=== PATIENT | female | born 1970 | race Caucasian/White ===

== ENCOUNTER 2016-05-16 22:07 | Observation (INO) ==
[2016-05-16] MEDS ORDERED: Nitroglycerin 0.4 MG TAB.SUBL SL PRN (23:12)
[2016-05-16] MEDS ORDERED: Aspirin 81 MG TAB.CHEW PO ONE (23:12)
[2016-05-16] MEDS ORDERED: methylPREDNISolone 125 MG/2 ML VIAL IVP ONE (23:12)
[2016-05-16] MEDS ORDERED: Ipratropium/Albuterol Neb 3 ML IH ONE (23:12)
[2016-05-16 23:19] LABS: Basophils # 0.1 K/mcL (0.0-0.2); Basophils % 0.8 %; Eosinophils # 0.2 K/mcL (0.0-0.6); Eosinophils % 1.7 %; Hematocrit 34.5 % (35.3-44.9); Immature Granulocytes % 0.4 % (0-4); Lymphocytes # 2.1 K/mcL (0.6-4.6); Lymphocytes % 22.8 %; Mean Corpuscular HGB Conc 31.9 g/dL (31.6-35.5); Mean Corpuscular Hemoglobin 27.8 pg (28.0-33.3); Mean Corpuscular Volume 87.3 fL (83.0-100.0); Mean Platelet Volume 9.4 fL (9.4-12.4); Monocytes # 0.5 K/mcL (0.0-1.3); Neutrophils # 6.2 K/mcL (1.6-8.9); Platelet Count 390 K/mcL (140-400); Red Blood Count 3.95 M/mcL (3.82-4.97); Red Cell Distribution Width 13.3 % (11.5-14.5); Segmented Neutrophils % 68.3 %
[2016-05-16 23:25] LABS: INR 1.1; Prothrombin Time 11.7 Seconds (9.4-12.1)
[2016-05-16 23:27] LABS: Activated Partial Thrombo Time 31.1 Seconds (26.0-36.0)
[2016-05-16 23:33] LABS: Alanine Aminotransferase 11 Units/L (0-55); Albumin 2.2 g/dL (3.5-5.0); Albumin/Globulin Ratio 0.7 (1.1-2.2); Alkaline Phosphatase 124 Units/L (38-126); Aspartate Amino Transferase 12 Units/L (5-34); BUN/Creatinine Ratio 24 (6-26); Bilirubin,Total 0.6 mg/dL (0.2-1.2); Blood Urea Nitrogen 23 mg/dL (7-20); Calcium 8.1 mg/dL (8.6-10.8); Carbon Dioxide 28 mEq/L (19-29); Chloride 101 mEq/L (98-109); Glucose 398 mg/dL (70-99); Osmolality,Calculated 300 (280-300); Potassium 3.8 mEq/L (3.5-4.5); Sodium 135 mEq/L (136-145); Total Protein 5.2 g/dL (6.0-8.3); eGFR For African Americans > 60 (> 60); eGFR For Non-African Americans > 60 (> 60)
[2016-05-16] MEDS ORDERED: Furosemide 80 MG in 0.9 % Sodium Chloride 50 ML IVPB ONE (23:57)
--- NOTE | 2016-05-17 00:13 | Emergency Department Note ---
Disposition Clinical Impression: Shortness of breath, Hypoxia Chest pain Qualifiers: Chest pain type: unspecified Qualified Code(s): R07.9 - Chest pain, unspecified Congestive heart failure Qualifiers: Congestive heart failure type: unspecified congestive heart failure type Congestive heart failure chronicity: unspecified congestive heart failure chronicity Qualified Code(s): I50.9 - Heart failure, unspecified Disposition: Admitted As Inpatient Condition: Good Time of Disposition: 00:33 Chest Pain HPI - General Chief Complaint: ED Chest Pain Stated Complaint: Chest pain/Right hip and other pains Time Seen by Provider: 05/16/16 23:01 Source: patient Limitations: no limitations Vital Signs Reviewed: Yes Nursing Notes Reviewed: Yes - History of Present Illness HPI Narrative: Patient presents emergency room with complaints of right hip pain. She felt something pop in her hip yesterday. While coming into the emergency room today she had chest pain as well. A similar to her previous myocardial infarction. She was concerned and wanted evaluated. She currently denies fevers chills nausea vomiting or diarrhea. Denies shortness of breath no other new issues or medications. She has noticed some increased swelling in her bilateral lower legs Pt complaint: chest pain Onset (ago): Just [employer] Duration: constant Onset: during rest Pain Location: substernal, left chest Severity: severe Severity scale (1-10): 10 Quality: tightness Pain Radiation: none Improves with: nothing Worsens with: exertion, inspiration, movement Context: recent illness, trauma/injury (Right hip) Treatments prior to arrival chest pain: none - Related Data Home Medications Medication Instructions Recorded Confirmed Albuterol Sulfate [Albuterol 2 puff IH Q4HR PRN 12/20/14 05/17/16 Inhaler] Amitriptyline [Elavil] 25 mg PO HS 12/20/14 05/17/16 Aspirin Enteric Coated [Aspirin EC] 81 mg PO DAILY 12/20/14 05/17/16 Atorvastatin [Lipitor] 40 mg PO DAILY 12/20/14 05/17/16 Clopidogrel [Plavix] 75 mg PO DAILY 12/20/14 05/17/16 Fenofibrate [Lofibra] 160 mg PO DAILY 12/20/14 09/08/15 Fludrocortisone Acetate [Florinef] 0.1 mg PO DAILY 12/20/14 09/08/15 Fluticasone/Salmeterol [Advair 1 puff IH BID 12/20/14 05/17/16 250-50 Diskus] Gabapentin [Neurontin] 400 mg PO TID 12/20/14 05/17/16 Insulin ASPART [NovoLOG] 4 - 5 unit SQ TIDWM 12/20/14 09/08/15 Insulin DETEMIR [Levemir] 40 unit SQ BID 12/20/14 09/08/15 Ipratropium/Albuterol Neb [Duoneb] 3 ml IH Q6HR 12/20/14 09/08/15 Isosorbide MONOnitrate (24 HR) 60 mg PO DAILY 12/20/14 05/17/16 [Imdur] Lisinopril [Zestril] 2.5 mg PO DAILY 12/20/14 05/17/16 Metoprolol XL (24 HR) Succ [Toprol 50 mg PO DAILY 12/20/14 05/17/16 XL] Oxycodone HCl/Acetaminophen 1 each PO BID 12/20/14 05/17/16 [Percocet 7.5-325 mg Tablet] Ranolazine [Ranexa] 500 mg PO BID 12/20/14 05/17/16 Alprazolam [Xanax 0.5 MG Tablet] 0.5 mg PO HS PRN 05/17/16 05/17/16 Allergies Allergy/AdvReac Type Severity Reaction Status Date / Time ciprofloxacin [From Cipro] Allergy Hives Verified 05/16/16 22:20 insulin glargine Allergy Blister Verified 05/16/16 22:20 [From Lantus] codeine AdvReac Hives Verified 05/16/16 22:20 All systems ED: reviewed and negative except as stated. Constitutional: Denies: fever, chills Cardiovascular: Reports: chest pain. Denies: palpitations, dyspnea on exertion Respiratory: Denies: dyspnea, wheezes, hemoptysis Gastrointestinal: Denies: nausea, vomiting, diarrhea Genitourinary: Denies: dysuria, frequency Musculoskeletal: Reports: arthralgia. 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 Absent: respiratory distress, wheezes, stridor, accessory muscle use - Cardiovascular Cardiovascular exam: Present: regular rate, normal rhythm, normal heart sounds - Abdominal Exam Abdominal exam: Present: soft, Non-Tender. Absent: tenderness, distention, guarding, rebound, rigidity - Extremities Exam Extremities exam: Present: normal inspection, full ROM, pedal edema (Bilateral pitting edema up to the mid thigh +2) - Back Exam Back exam: Present: normal inspection, full ROM. Absent: tenderness - Neurological Exam Neurological exam: Present: alert, oriented X3, CN II-XII intact, normal gait - Psychiatric Psychiatric exam: Present: normal affect, normal mood - Skin Skin exam: Present: warm, dry, intact, normal color Course Course Narrative: Patient seen and examined at the time of arrival. See history of present illness. Patient is presenting here today with right hip pain. She had a previous surgical intervention performed in the hip after traumatic injury. Patient has had acute pain since yesterday afternoon. She denies any trauma falls or other injuries at this point. She also is complaining of acute onset of chest pain approximately 4 hours prior to coming into the emergency room today. Physical exam shows a well-appearing female. She appears much older than her stated age. Patient has clear lungs heart that is regular. Her abdomen is soft. She has tenderness over the right greater trochanter and in the right hip. She has full motor function in the bilateral lower extremity. She has appropriate sensation in the L3 throughout 5 dermatomes of the lower extremity. She has palpable DP and PT pulses. She has significant +2 pitting edema up to the mid thigh. Vital signs reviewed she is afebrile. Patient is concerning for possible cardiac issue at this point. She is showing signs of acute CHF. Patient also evaluation of the hip and the pelvis. Urinalysis pending. Disposition pending workup and treatment course. Nitroglycerin given a one-time dose can go the patient says that she is very symptomatic to nitroglycerin. Patient also will be provided with aspirin EKG chest x-ray troponin BNP. We will continue to monitor his symptoms are controlled and treatment course is completed. - Reevaluation(s) Reevaluation #1: Patient's vital signs unstable. Symptoms are moderately controlled at this point. Chest pain is better after the nitroglycerin. Patient has what appears to be acute CHF exacerbation based on chest x-ray and elevated BNP. Right hip also has some concerning findings on imaging. At this point based on symptoms history and presentation patient be brought to hospital with what appears to be in acute CHF exacerbation along with what is found to be a right hip pain will reevaluate the patient initially is no other issues at this time and expect admit the patient to the hospital for acute CHF exacerbation hip evaluation Time: 00:29 Reevaluation #2: Patient discussed with the hospitalist Dr. marks. Reviewed patient's presentation symptoms medical history and hip complaint. He had no other recommendations at this time. IV Lasix provided for what appears to be CHF exacerbation. Patient has maintained her vital signs here. She has required 2 L of nasal cannula oxygen. All of her chest discomfort symptoms resolved with the breathing treatments. We will continue monitoring in emergency room until the admission process is completed. Time: 00:47 Vital Signs Temperature 97.7 F 05/16/16 22:20 Pulse Rate 92 05/16/16 22:20 Respiratory Rate 20 05/16/16 22:20 Blood Pressure 154/78 05/16/16 22:20 O2 Sat by Pulse Oximetry 94 L 05/16/16 22:20 Temperature 98.6 F 05/17/16 03:17 Pulse Rate 98 05/17/16 03:17 Respiratory Rate 18 05/17/16 03:17 Blood Pressure 147/75 05/17/16 03:17 O2 Sat by Pulse Oximetry 97 05/17/16 05:08 Oxygen Delivery Oxygen Delivery Room Air Chest Pain - MDM Narrative Medical decision making narrative: CHF, chest pressure. Hypoxia, shortness of breath, bilateral lower extremity edema, right hip pain - Medical Records Medical records reviewed: Yes I reviewed the patient's medical records. - Lab Data Lab results reviewed: Yes I reviewed the patient's lab results. Result diagrams: 05/16/16 23:10 05/16/16 23:10 Lab Results 05/16/16 05/16/16 05/16/16 Range/Units 23:10 23:10 23:10 WBC 9.0 (4.3-11.1) K/mcL RBC 3.95 (3.82-4.97) M/mcL Hgb 11.0 L (11.5-15.4) g/dL Hct 34.5 L (35.3-44.9) % MCV 87.3 (83.0-100.0) fL MCH 27.8 L (28.0-33.3) pg MCHC 31.9 (31.6-35.5) g/dL RDW 13.3 (11.5-14.5) % Plt Count 390 (140-400) K/mcL MPV 9.4 (9.4-12.4) fL Immature Gran % 0.4 (0-4) % Seg Neutrophils % 68.3 % Lymphocytes % 22.8 % Monocytes % 6.0 % Eosinophils % 1.7 % Basophils % 0.8 % Neutrophils # 6.2 (1.6-8.9) K/mcL Lymphocytes # 2.1 (0.6-4.6) K/mcL Monocytes # 0.5 (0.0-1.3) K/mcL Eosinophils # 0.2 (0.0-0.6) K/mcL Basophils # 0.1 (0.0-0.2) K/mcL PT (9.4-12.1) Seconds INR APTT (26.0-36.0) Seconds Sodium 135 L (136-145) mEq/L Potassium 3.8 (3.5-4.5) mEq/L Chloride 101 (98-109) mEq/L Carbon Dioxide 28 (19-29) mEq/L BUN 23 H (7-20) mg/dL Creatinine 0.96 (0.57-1.11) mg/dL Est GFR ( Amer) > 60 (> 60) Est GFR (Non-Af Amer) > 60 (> 60) BUN/Creatinine Ratio 24 (6-26) Glucose 398 H (70-99) mg/dL Calculated Osmolality 300 (280-300) Calcium 8.1 L (8.6-10.8) mg/dL Total Bilirubin 0.6 (0.2-1.2) mg/dL AST 12 (5-34) Units/L ALT 11 (0-55) Units/L Alkaline Phosphatase 124 (38-126) Units/L Troponin I 0.02 (0-0.03) ng/mL B-Natriuretic Peptide (0-100) pg/mL Serum Total Protein 5.2 L (6.0-8.3) g/dL Albumin 2.2 L (3.5-5.0) g/dL Globulin 3.0 (2.4-3.5) g/dL Albumin/Globulin Ratio 0.7 L (1.1-2.2) 05/16/16 05/16/16 Range/Units 23:10 23:10 WBC (4.3-11.1) K/mcL RBC (3.82-4.97) M/mcL Hgb (11.5-15.4) g/dL Hct (35.3-44.9) % MCV (83.0-100.0) fL MCH (28.0-33.3) pg MCHC (31.6-35.5) g/dL RDW (11.5-14.5) % Plt Count (140-400) K/mcL MPV (9.4-12.4) fL Immature Gran % (0-4) % Seg Neutrophils % % Lymphocytes % % Monocytes % % Eosinophils % % Basophils % % Neutrophils # (1.6-8.9) K/mcL Lymphocytes # (0.6-4.6) K/mcL Monocytes # (0.0-1.3) K/mcL Eosinophils # (0.0-0.6) K/mcL Basophils # (0.0-0.2) K/mcL PT 11.7 (9.4-12.1) Seconds INR 1.1 APTT 31.1 (26.0-36.0) Seconds Sodium (136-145) mEq/L Potassium (3.5-4.5) mEq/L Chloride (98-109) mEq/L Carbon Dioxide (19-29) mEq/L BUN (7-20) mg/dL Creatinine (0.57-1.11) mg/dL Est GFR ( Amer) (> 60) Est GFR (Non-Af Amer) (> 60) BUN/Creatinine Ratio (6-26) Glucose (70-99) mg/dL Calculated Osmolality (280-300) Calcium (8.6-10.8) mg/dL Total Bilirubin (0.2-1.2) mg/dL AST (5-34) Units/L ALT (0-55) Units/L Alkaline Phosphatase (38-126) Units/L Troponin I (0-0.03) ng/mL B-Natriuretic Peptide 1261 H (0-100) pg/mL Serum Total Protein (6.0-8.3) g/dL Albumin (3.5-5.0) g/dL Globulin (2.4-3.5) g/dL Albumin/Globulin Ratio (1.1-2.2) - Radiology Data Radiology results reviewed: Yes I reviewed the patient's radiology results. Chest x-ray shows pulmonary edema bilaterally - EKG Data EKG attestation: Yes I reviewed and interpreted this EKG. EKG shows normal: sinus rhythm, axis, intervals, QRS complexes, ST-T waves Rate: normal Rhythm: NSR Delta/QRS: normal When compared to previous EKG there are: no significant changes Interpretation: no acute changes, unchanged when compared to prior tracing (date ) (09/07/2015) Heart Score - Score History: Moderately Suspicious EKG: Non Specific repolarisation Disturbance Age: 45-65 Risk Factors: Equal/Greater than 3 risk factor or history of atherosclerotic disease Troponin: Less than normal limit HEART Score Total: 5 Attestation Statement - Attestation Attestation: For this encounter, I have reviewed the resident, RECRUITMENT OFFICER, or PA documentation, treatment plan, and medical decision making; and I have had face to face time with this patient. 46-year-old female presents with concerns of chest pain and difficulty breathing. Patient states that her symptoms have been progressive over the past week. Patient reports orthopnea and has edema to the bilateral lower extremities. Patient has not taken her medications over the past 2 months due to the inability to see a primary care provider. Patient states the pain in her chest as a diffuse aching that does not radiate, is not associated with diaphoresis or palpitations. Initial troponin negative. EKG shows normal sinus rhythm with a rate of 89. Patient has a significantly elevated BNP, she was given Lasix in the emergency department and admitted for acute CHF exacerbation.
[2016-05-17] MEDS ORDERED: Furosemide 40 MG/4 ML VIAL IVP ONE (00:33)
--- NOTE | 2016-05-17 04:37 | Internal Med History&Physical ---
Date of Encounter: 05/18/16 Time of Encounter: 04:35 Assessment and Plan (1) Avulsion of toenail of left foot Status: Acute Empiric antibiotics will be given. will ask podiatry service to see the patient. (2) Right hip pain Status: Acute CT scan of the right hip will be perform. orthopedic consultation (3) Chest pain Status: Acute Serial cardiac markers. Qualifiers: Chest pain type: unspecified Qualified Code(s): R07.9 - Chest pain, unspecified (4) Congestive heart failure Status: Acute Lasix 40 mg IV b.i.d. No clinical evidence of pneumonia, no acting wheezing, no need for steroids. Qualifiers: Congestive heart failure type: diastolic Congestive heart failure chronicity: acute on chronic Qualified Code(s): I50.33 - Acute on chronic diastolic (congestive) heart failure (5) Uncontrolled diabetes mellitus Status: Chronic Sliding scale insulin Q4 hours. 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 Mckeon is a 46 year old female who presents to the emergency room today with the main complaint of right hip pain. Patient felt that something popped in her right hip after which she started noticing severe pain and swelling in the right supervision. She was bearing weight with difficulty because of severe pain. She had right total hip replacement in November 2015. No fevers chills. It also complaining of worsening shortness of breath that progress to: minimal exertion. She had worsening bilateral swelling in both lower extremity. She was also having retro sternal chest pain on arrival to the emergency room that lasted for few hours. No increased sputum production or purluence. after she arrived to the floor, she avulsed the nail of the right great toe. Past Med Surg Social Fam HX - Past Medical History Medical history: cardiomyopathy, cirrhosis, COPD, coronary artery disease, CVA, diabetes, peripheral artery disease, renal disease, TIA, other Psychiatric history: anxiety - Past Surgical History Surgical History: appendectomy, cholecystectomy, hysterectomy, orthopedic, other , other - Social History Smoking Status: Current every day smoker Smokeless Tobacco Status: No Alcohol use: none Drug use: none - Family History Father Living Status: Hx Family Cardiac Disorders: Yes Hx Family Respiratory Disorders: Yes Hx Family Cancer: Yes Hx Family Endocrine Disorder: Yes Hx Family Neurologic Disorders: No Internal Medicine - H&P: Meds Insulin ASPART [NovoLOG] 4 - 5 unit SQ TIDWM 12/20/14 [History] Insulin DETEMIR [Levemir] 40 unit SQ BID 12/20/14 [History] Allergies ciprofloxacin [From Cipro] Allergy (Verified 05/16/16 22:20) Hives insulin glargine [From Lantus] Allergy (Verified 05/16/16 22:20) Blister codeine Adverse Reaction (Verified 05/16/16 22:20) Hives All Systems PM: A 10-system review of systems was performed and is negative for pertinent findings except as documented above in the HPI. Review of systems: 10 point ROS is negative except for HPI - Constitutional Vitals: Temp Pulse Resp BP Pulse Ox 98.6 F 98 18 147/75 97 05/17/16 03:17 05/17/16 03:17 05/17/16 03:17 05/17/16 03:17 05/17/16 03:17 Exam: Gen.: patient is alert oriented times 3 not in distress Cardiac: normal S1 S2 and all additional sounds or murmurs chest: Bilateral basal rales. abdomen: soft nontender nondistended lower extremity lax calf muscles Muskloskletal: aVULSED LEFT GREAT TOE NAIL Internal Med - H&P Results - Labs CBC & Chem 7: 05/18/16 04:11 05/18/16 04:11
[2016-05-17] MEDS: Ampicillin/Sulbactam 3,000 MG in 0.9 % Sodium Chloride Mini Bag 100 ML IVPB SCH ×3 (05:04→17:36)
[2016-05-17] MEDS: Insulin LISPRO 300 UNITS/3 ML VIAL SQ SCH ×4 (05:43→17:41)
[2016-05-17] MEDS: ALPRAZolam 0.5 MG TABLET PO SCH ×2 (06:50→20:18)
[2016-05-17] MEDS: *HR* OxyCODONE/APAP 7.5/325 TABLET PO PRN ×2 (06:50→20:18)
[2016-05-17 08:12] LABS: Bilirubin,Urine Negative (Negative); Blood,Urine Moderate (Negative); Clarity,Urine Clear (Clear); Color,Urine Yellow (Yellow); Glucose,Urine (UA) 500 mg/dL (Normal); Ketones,Urine Negative (Negative); Leukocyte Esterase,Urine Negative (Negative); Nitrite,Urine Negative (Negative); Protein,Urine 100 mg/dL (Neg-Trace); Urobilinogen,Urine Normal (Normal)
[2016-05-17 08:14] LABS: Bacteria,Urine None Seen per hpf (None-Few); Hyaline Casts,Urine None Seen per lpf (None-Few); Squamous Epithelial Cell,Urine Moderate per lpf (None-Few); WBC,Urine 0-3 per hpf (0-3)
[2016-05-17] MEDS ORDERED: Furosemide 40 MG in 0.9 % Sodium Chloride 50 ML IVPB SCH (09:00)
[2016-05-17 09:08] LABS: Amphetamine Screen,Urine Negative ng/mL (Cutoff=1000); Barbiturate Screen,Urine Negative ng/mL (Cutoff=200); Benzodiazepines Screen,Urine Negative ng/mL (Cutoff=200); Cannabinoid Screen,Urine Negative ng/mL (Cutoff = 50); Cocaine Screen,Urine Negative ng/mL (Cutoff= 300); Opiate Screen,Urine Negative ng/mL (Cutoff=300); Phencyclidine Screen,Urine Negative ng/mL (Cutoff=25)
[2016-05-17] MEDS: Furosemide 40 MG/4 ML VIAL IV SCH ×2 (10:08→17:36)
[2016-05-17] MEDS: Aspirin Enteric Coated 81 MG Tablet PO SCH (10:09)
[2016-05-17] MEDS: Ranolazine 500 MG TAB.ER.12H PO SCH ×2 (10:09→20:18)
[2016-05-17] MEDS: Metoprolol XL (24 HR) Succ 50 MG TAB.ER.24H PO SCH (10:09)
[2016-05-17] MEDS: Isosorbide MONOnitrate (24 HR) 60 MG TAB.ER.24H PO SCH (10:09)
[2016-05-17] MEDS: Ipratropium/Albuterol Neb 3 ML IH SCH ×3 (10:46→20:13)
[2016-05-17] MEDS ORDERED: Dextrose Gel 15 GM PO PRN ×2 (11:02)
[2016-05-17] MEDS ORDERED: D5% in Water 1,000 ML IV PRN (11:02)
[2016-05-17] MEDS ORDERED: *HR* Dextrose 50 % in Water (Syg) 50 ML SYRINGE IVP PRN (11:02)
[2016-05-17] MEDS ORDERED: Insulin LISPRO 300 UNITS/3 ML VIAL SQ SCH ×3 (11:15→21:00)
--- NOTE | 2016-05-17 13:58 | Podiatry Consult Note ---
Date of Encounter: 05/17/16 Time of Encounter: 12:15 Assessment and Plan (1) DM type 2 with diabetic peripheral neuropathy Current visit: Yes Status: Acute (2) PVD (peripheral vascular disease) Current visit: Yes Status: Acute (3) Avulsion of toenail of left foot Current visit: Yes Status: Acute S/p spontaneous total toe nail avulsion of the left great toe, no evidence of bacterial infection. Will continue to monitor left great toe. Wound care to include cleansing left great toe daily with mild soap and water, pat dry, apply adaptic with 4x4 gauze and tape. A blister is present to the left foot lateral aspect at the base of the 5th metatarsal, adaptic applied with kerlix. Will continue to monitor blister, may need to deroof blister based on clinical picture. Will f/u with patient tomorrow. Patient has a history of PAD, unable to palpate pedal pulses, will order LEXI's of BLE. (4) Blister Current visit: Yes Status: Acute S/p spontaneous total toe nail avulsion of the left great toe, no evidence of bacterial infection. Will continue to monitor left great toe. Wound care to include cleansing left great toe daily with mild soap and water, pat dry, apply adaptic with 4x4 gauze and tape. A blister is present to the left foot lateral aspect at the base of the 5th metatarsal, adaptic applied with kerlix. Will continue to monitor blister, may need to deroof blister based on clinical picture. Will f/u with patient tomorrow. Patient has a history of PAD, unable to palpate pedal pulses, will order LEXI's of BLE. History of Present Illness HPI: Ms. Mckeon is a 46 year old female admitted to [facility] for right hip pain. Patient has a medical history significant for diabetes mellitus with neuropathy , COPD, AK, PAD with stents in legs, cirrhosis, asthma, chronic back pain, history of osteomyelitis of right great toe. Surgical history significant for amputation of right great toe in December of 2012. Patient underwent an angiogram with right iliac stent placement in [address] Piper. Patients last set of ABIs were in January of 2015 RABI:0.97 LABI: 0.98. Podiatry was consulted today for a toe nail avulsion of the left great toe. Patient states it happened last night but she does not know how. She denies any injury or trauma. She states her feet are numb. Patient has a blister to the left lateral foot. She states her feet blister when her feet are swollen. No c/o fever or chills. Past Med Surg Social Fam HX - Past Medical History Medical history: cardiomyopathy, cirrhosis, COPD, coronary artery disease, CVA, diabetes, peripheral artery disease, renal disease, TIA, other Psychiatric history: anxiety - Past Surgical History Surgical History: appendectomy, cholecystectomy, hysterectomy, orthopedic, other , other - Social History Smoking Status: Current every day smoker Smokeless Tobacco Status: No Alcohol use: none Drug use: none - Family History Father Living Status: Hx Family Cardiac Disorders: Yes Hx Family Respiratory Disorders: Yes Hx Family Cancer: Yes Hx Family Endocrine Disorder: Yes Hx Family Neurologic Disorders: No Medications and Allergies Albuterol Sulfate [Albuterol Inhaler] 2 puff IH Q4HR PRN 12/20/14 [History] Amitriptyline [Elavil] 25 mg PO HS 12/20/14 [History] Aspirin Enteric Coated [Aspirin EC] 81 mg PO DAILY 12/20/14 [History] Atorvastatin [Lipitor] 40 mg PO DAILY 12/20/14 [History] Clopidogrel [Plavix] 75 mg PO DAILY 12/20/14 [History] Fenofibrate [Lofibra] 160 mg PO DAILY 12/20/14 [History] Fludrocortisone Acetate [Florinef] 0.1 mg PO DAILY 12/20/14 [History] Fluticasone/Salmeterol [Advair 250-50 Diskus] 1 puff IH BID 12/20/14 [History] Gabapentin [Neurontin] 400 mg PO TID 12/20/14 [History] Insulin ASPART [NovoLOG] 4 - 5 unit SQ TIDWM 12/20/14 [History] Insulin DETEMIR [Levemir] 40 unit SQ BID 12/20/14 [History] Ipratropium/Albuterol Neb [Duoneb] 3 ml IH Q6HR 12/20/14 [History] Isosorbide MONOnitrate (24 HR) [Imdur] 60 mg PO DAILY 12/20/14 [History] Lisinopril [Zestril] 2.5 mg PO DAILY 12/20/14 [History] Metoprolol XL (24 HR) Succ [Toprol XL] 50 mg PO DAILY 12/20/14 [History] Oxycodone HCl/Acetaminophen [Percocet 7.5-325 mg Tablet] 1 each PO BID 12/20/14 [History] Ranolazine [Ranexa] 500 mg PO BID 12/20/14 [History] Alprazolam [Xanax 0.5 MG Tablet] 0.5 mg PO HS PRN 05/17/16 [History] Allergies ciprofloxacin [From Cipro] Allergy (Verified 05/16/16 22:20) Hives insulin glargine [From Lantus] Allergy (Verified 05/16/16 22:20) Blister codeine Adverse Reaction (Verified 05/16/16 22:20) Hives All Systems Reviewed: A 10-system review of systems was performed and is negative for pertinent findings except as documented above in the HPI. Physical Exam - Constitutional Vitals: Temp Pulse Resp BP Pulse Ox 97.4 F L 80 18 122/67 88 L 05/17/16 10:44 05/17/16 10:44 05/17/16 10:46 05/17/16 10:44 05/17/16 10:46 Exam: : General appearance: alert awake oriented X 3. Calm and pleasant, no acute distress.. Vascular: Pedal pulses 0/4 DP/PT , No evidence of cyanosis, pallor or rubor, Edema graded at 3+/4, Skin Temperature warm, No calf pain with manual compression. capillary refill time is immediate to digits. Neurologic: Absent epicritic sensation as evidence by the SWMF 5.07 consistent with neuropathy. Musculoskeletal: Muscle strength 4/5 and equal bilaterally, history of amputation of right great toe. Integument: No nail present to the left great toe secondary to spontaneous total nail avulsion. Nail bed red with scant amount of blood. No pus, no odor , no pus, no streaking, no evidence of bacterial infection. Bullous lesion to the lateral aspect of the left foot at the base of the 5th metatarsal. Results - Labs Result Diagrams: 05/16/16 23:10 05/16/16 23:10 Labs: Abnormal lab results Hgb 11.0 g/dL (11.5-15.4) L 05/16/16 23:10 Hct 34.5 % (35.3-44.9) L 05/16/16 23:10 MCH 27.8 pg (28.0-33.3) L 05/16/16 23:10 Sodium 135 mEq/L (136-145) L 05/16/16 23:10 BUN 23 mg/dL (7-20) H 05/16/16 23:10 Glucose 398 mg/dL (70-99) H 05/16/16 23:10 Calcium 8.1 mg/dL (8.6-10.8) L 05/16/16 23:10 B-Natriuretic Peptide 1261 pg/mL (0-100) H 05/16/16 23:10 Serum Total Protein 5.2 g/dL (6.0-8.3) L 05/16/16 23:10 Albumin 2.2 g/dL (3.5-5.0) L 05/16/16 23:10 Albumin/Globulin Ratio 0.7 (1.1-2.2) L 05/16/16 23:10 Urine Protein 100 mg/dL (Neg-Trace) H 05/17/16 07:30 Urine Glucose (UA) 500 mg/dL (Normal) H 05/17/16 07:30 Urine Blood Moderate (Negative) H 05/17/16 07:30 Urine Microscopic RBC 3-5 per hpf (0-3) H 05/17/16 07:30 Ur Squamous Epith Cells Moderate per lpf (None-Few) H 05/17/16 07:30 All other labs normal. Consult Discharge Plan - Plan Referrals: NO,PCP [Primary Care Provider] -
--- NOTE | 2016-05-17 14:11 | Event Note ---
Date of Encounter: 05/17/16 Time of Encounter: 13:30 Patient seen and examined. On examination, patient is sitting upright in her chair talking on the phone. Patient stating her leg pain is currently controlled. She denies shortness of breath above her norm at this point. Chest x-ray consistent with mild CHF. Femur x-ray and pelvic x-ray both unremarkable. Pelvic x-ray unremarkable for acute processes. Hip CT negative for acute processes. Patient appears slightly fluid overloaded on examination, we will continue to diurese. Urinalysis negative. Tox screen negative. Continue Unasyn. Podiatry on board for her toenail avulsion. ITS Impressions Chest X-Ray 05/16/16 22:26 IMPRESSION: 1. Interstitial pulmonary edema and bilateral effusions, suggesting congestive heart failure despite normal heart size. 2. Bibasilar atelectasis. D/ / Krishna Harris MD / Krishna Harris MD Interpreting Provider: Krishna Harris MD Femur X-Ray 05/16/16 22:28 IMPRESSION: 1. No acute findings in the pelvis or right thigh. 2. New changes of internal fixation of the right femoral neck without complication. 3. Minimal osteoarthritic changes of the sacroiliac joints and hips. D/ / Krishna Harris MD / Krishna Harris MD Interpreting Provider: Krishna Harris MD Pelvis X-Ray 05/16/16 22:28 IMPRESSION: 1. No acute findings in the pelvis or right thigh. 2. New changes of internal fixation of the right femoral neck without complication. 3. Minimal osteoarthritic changes of the sacroiliac joints and hips. D/ / Krishna Harris MD / Krishna Harris MD Interpreting Provider: Krishna Harris MD Hip CT 05/17/16 09:00 IMPRESSION: No acute osseous abnormality Mild body wall anasarca. This may be a secondary sign of fluid overload Mildly prominent nonspecific inguinal lymph nodes, most likely reactive in the absence of a known primary D/ / Adeel Washington MD / Adeel Washington MD Interpreting Provider: Adeel Washington MD
--- NOTE | 2016-05-17 19:45 | Electrocardiograph Report ---
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
[2016-05-17] MEDS ORDERED: Furosemide 100 MG/10 ML VIAL IVP ONE (23:45)
[2016-05-18] MEDS: Ampicillin/Sulbactam 3,000 MG in 0.9 % Sodium Chloride Mini Bag 100 ML IVPB SCH ×2 (00:29→05:59)
[2016-05-18] MEDS: Ipratropium/Albuterol Neb 3 ML IH SCH ×2 (04:17→10:45)
[2016-05-18 04:41] LABS: Basophils # 0.1 K/mcL (0.0-0.2); Basophils % 0.5 %; Eosinophils # 0.1 K/mcL (0.0-0.6); Eosinophils % 0.7 %; Hematocrit 25.2 % (35.3-44.9); Immature Granulocytes % 0.4 % (0-4); Lymphocytes # 1.7 K/mcL (0.6-4.6); Lymphocytes % 15.8 %; Mean Corpuscular HGB Conc 33.3 g/dL (31.6-35.5); Mean Corpuscular Hemoglobin 28.9 pg (28.0-33.3); Mean Corpuscular Volume 86.6 fL (83.0-100.0); Mean Platelet Volume 10.3 fL (9.4-12.4); Monocytes # 0.8 K/mcL (0.0-1.3); Monocytes % 7.5 %; Platelet Count 291 K/mcL (140-400); Red Blood Count 2.91 M/mcL (3.82-4.97); Red Cell Distribution Width 13.7 % (11.5-14.5); Segmented Neutrophils % 75.1 %
[2016-05-18 04:42] LABS: Hemoglobin 8.4 g/dL (11.5-15.4)
[2016-05-18 05:16] LABS: BUN/Creatinine Ratio 24 (6-26); Blood Urea Nitrogen 28 mg/dL (7-20); Calcium 7.8 mg/dL (8.6-10.8); Carbon Dioxide 22 mEq/L (19-29); Chloride 101 mEq/L (98-109); Glucose 268 mg/dL (70-99); Osmolality,Calculated 293 (280-300); Sodium 134 mEq/L (136-145); eGFR For African Americans > 60 (> 60); eGFR For Non-African Americans 50 (> 60)
--- NOTE | 2016-05-18 08:08 | Discharge Summary ---
Date of Encounter: 05/18/16 Time of Encounter: 08:05 - Discharge Diagnosis (1) Congestive heart failure Priority: Primary Status: Acute Comments: Acute pulmonary edema with bilateral pleural effusions secondary to Acute chronic diastolic CHF exacerbation due to noncompliance with medications/Lasix Qualifiers: Congestive heart failure type: diastolic Congestive heart failure chronicity: acute on chronic Qualified Code(s): I50.33 - Acute on chronic diastolic (congestive) heart failure (2) Avulsion of toenail of left foot Priority: Secondary Status: Acute Comments: S/p spontaneous total toe nail avulsion of the left great toe (3) DM type 2 with diabetic peripheral neuropathy Priority: Secondary Status: Acute (4) PVD (peripheral vascular disease) Priority: Secondary Status: Acute Comments: LEXI report to follow with primary care physician as an outpatient Consider vascular surgery follow-up as an outpatient (5) CVA (cerebral vascular accident) Priority: Secondary Status: Chronic Qualifiers: CVA mechanism: unspecified Qualified Code(s): I63.9 - Cerebral infarction, unspecified (6) Generalized weakness Priority: Secondary Status: Chronic Comments: Chronic debility (7) Anemia Priority: Secondary Status: Acute Comments: No signs of bleeding Qualifiers: Anemia type: iron deficiency Iron deficiency anemia type: other iron deficiency Qualified Code(s): D50.8 - Other iron deficiency anemias - Discharge Medications Prescriptions: Alprazolam [Xanax 0.5 MG Tablet] 0.5 mg PO HS PRN #20 tablet PRN Reason: Anxiety Atorvastatin [Lipitor] 40 mg PO DAILY #30 tablet Clopidogrel [Plavix] 75 mg PO DAILY #30 tablet Fenofibrate [Lofibra] 160 mg PO DAILY 30 Days Furosemide [Lasix] 40 mg PO DAILY 60 Days Gabapentin [Neurontin] 400 mg PO TID 30 Days Isosorbide MONOnitrate (24 HR) [Imdur] 60 mg PO DAILY 30 Days Lisinopril 2.5 mg PO DAILY #30 tablet Metoprolol XL (24 HR) Succ [Toprol Xl] 50 mg PO DAILY 30 Days OxyCODONE/APAP 7.5/325 [Percocet 7.5/325 MG] 1 each PO BID PRN #20 tablet PRN Reason: Pain Potassium Chloride 10 meq PO DAILY #30 tab.er.prt Ranolazine [Ranexa] 500 mg PO BID 30 Days Home Medications: Albuterol Sulfate [Albuterol Inhaler] 2 puff IH Q4HR PRN 12/20/14 [History] Amitriptyline [Elavil] 25 mg PO HS 12/20/14 [History] Aspirin Enteric Coated [Aspirin EC] 81 mg PO DAILY 12/20/14 [History] Fludrocortisone Acetate [Florinef] 0.1 mg PO DAILY 12/20/14 [History] Fluticasone/Salmeterol [Advair 250-50 Diskus] 1 puff IH BID 12/20/14 [History] Insulin ASPART [NovoLOG] 4 - 5 unit SQ TIDWM 12/20/14 [History] Insulin DETEMIR [Levemir] 40 unit SQ BID 12/20/14 [History] Ipratropium/Albuterol Neb [Duoneb] 3 ml IH Q6HR 12/20/14 [History] Oxycodone HCl/Acetaminophen [Percocet 7.5-325 mg Tablet] 1 each PO BID 12/20/14 [History] Alprazolam [Xanax 0.5 MG Tablet] 0.5 mg PO HS PRN #20 tablet 05/18/16 [Rx] Atorvastatin [Lipitor] 40 mg PO DAILY #30 tablet 05/18/16 [Rx] Clopidogrel [Plavix] 75 mg PO DAILY #30 tablet 05/18/16 [Rx] Fenofibrate [Lofibra] 160 mg PO DAILY 30 Days 05/18/16 [Rx] Furosemide [Lasix] 40 mg PO DAILY 60 Days 05/18/16 [Rx] Gabapentin [Neurontin] 400 mg PO TID 30 Days 05/18/16 [Rx] Isosorbide MONOnitrate (24 HR) [Imdur] 60 mg PO DAILY 30 Days 05/18/16 [Rx] Lisinopril 2.5 mg PO DAILY #30 tablet 05/18/16 [Rx] Metoprolol XL (24 HR) Succ [Toprol Xl] 50 mg PO DAILY 30 Days 05/18/16 [Rx] OxyCODONE/APAP 7.5/325 [Percocet 7.5/325 MG] 1 each PO BID PRN #20 tablet [Rx] Potassium Chloride 10 meq PO DAILY #30 tab.er.prt 05/18/16 [Rx] Ranolazine [Ranexa] 500 mg PO BID 30 Days 05/18/16 [Rx] Allergies/Adverse Reactions: Allergies ciprofloxacin [From Cipro] Allergy (Verified 05/16/16 22:20) Hives insulin glargine [From Lantus] Allergy (Verified 05/16/16 22:20) Blister codeine Adverse Reaction (Verified 05/16/16 22:20) Hives Procedures/tests Complete & Pending: Procedures Performed prior 72 hours Category Date Time Status CT hip RT wo con [CT] Routine Cat Scan 05/17/16 09:00 Completed EV ankle brachial index Stat Y 05/17/16 14:14 Completed Date of admission: 05/17/16 00:54 Primary care physician: PCP NO Consults: 05/17/16 04:15 Consult to Orthopedic Surgery [CONS] Routine Consulting Provider: [facility] Reason for Consult: S/P [facility]. pain, swelling cant bear weight. [place] a popping sound Call Completed: No 05/17/16 04:16 Consult to Podiatry [CONS] Routine Consulting Provider: Pod[facility] Reason for Consult: removed right great toe nail Call Completed: No 05/17/16 05:20 Consult to Director Of Public Safety [CONS] Routine Reason for SW Consult: reports being out of her meds for months, living with friends, asking for a raised toilet seat as she thinks the low toilet caused her hip to pop (she had a replacement in nov 2015) - Patient Status Disposition: Home Health Service Condition: Fair Overall status at discharge: patient is progressing back to baseline - Discharge Instructions Follow Up With: NELY,PCP [Primary Care Provider] - Additional Instructions: Follow-up with primary care physician within the next 7 days. Continue Lasix 40 mg daily, may increase to 40 mg twice a day if more short of breath. Continue Lantus, Plavix, resume aspirin. Needs wound care: cleansing left great toe daily with mild soap and water, pat dry, apply adaptic with 4x4 gauze and tape. Follow with podiatry within the next 7 days. Quit smoking. Follow report of echocardiogram and LEXI with primary care physician - Diet and Activity Activity: increase activity as tolerated Diet: diabetic diet Hospital course: Ms. Mckeon is a 46 year old female with a past medical history of cirrhosis, COPD not oxygen dependent, coronary artery disease, CVA, diabetes insulin- dependent, peripheral artery disease, CKD3, TIA who presented to the emergency room with the main complaint of right hip pain. Patient felt that something popped in her right hip after which she started noticing severe pain and swelling. She was bearing weight with difficulty because of severe pain. She had right total hip replacement in November 2015. No fevers chills. It also complaining of worsening shortness of breath that progress to: minimal exertion. She had worsening bilateral swelling in both lower extremity. She was also having retro sternal chest pain on arrival to the emergency room that lasted for few hours. No increased sputum production or purluence. after she arrived to the floor, she avulsed the nail of the right great toe. CT scan of the right hip was performed showing no fractures or acute abnormalities. Chest x-ray showed acute pulmonary edema with bilateral pleural effusions for which she was started on IV Lasix. Last echocardiogram from April 2015 showed an ejection fraction of 50-55% and mild diastolic dysfunction. Podiatry consult was called as the patient was complaining of severe pain on her left great toe. Initially she was started on Unasyn which was discontinued as no infection was noticed. Podiatry recommended an LEXI and wound care to include cleansing left great toe daily with mild soap and water, pat dry, apply adaptic with 4x4 gauze and tape. She will have an echocardiogram prior to be discharged. Feels better and less short of breath, mentions that she did not take any medication for the past month except for her Lantus. Insulin glargine is listed as an allergy but she says that she is allergic to Levemir, has been using Lantus 60 units in the morning and 20 at night without any problem at home. Time spent discussing smoking cessation with patient: 3 to 10 minutes - Time Spent with Patient Total time spent providing and/or coordinating discharge services: Greater than 30 minutes (40 minutes) - Constitutional Vitals: Temp Pulse Resp BP Pulse Ox 98.1 F 82 16 109/64 92 L 05/18/16 04:18 05/18/16 04:18 05/18/16 04:18 05/18/16 04:18 05/18/16 04:18 General appearance: Present: A&O X 3 - Head Head exam: Present: atraumatic, normocephalic - Eye Eye exam: Present: PERRL, conjuntiva pink, sclera anicteric Pupils: Present: PERRL - Neck Neck exam general surgery: Present: supple, trachea midline. Absent: lymphadenopathy - Respiratory Respiratory exam: Present: CTAB, rales (Fine bibasilar crackles). Absent: accessory muscle use, rhonchi, wheezes - Cardiovascular Cardiovascular exam: Present: RRR, +S1, +S2. Absent: diastolic murmur, gallop, rubs, systolic murmur - GI/Abdominal GI/Abdominal exam: Present: normal bowel sounds, soft, no peritoneal signs. Absent: distended, tenderness - Extremities Exam Extremities exam: Present: warm, radial pulses palpable and symetrical. Absent : calf tenderness, cyanotic, pedal edema Additional comments: No nail present to the left great toe secondary to spontaneous total nail avulsion. Nail bed red with scant amount of blood. No pus, no odor, no pus, no streaking, no evidence of bacterial infection. Bullous lesion to the lateral aspect of the left foot at the base of the 5th metatarsal. +1 bilateral pitting edema in lower extremities - Neurological Exam Neurological exam: Present: CN II-XII intact, oriented X3, no focal deficits. Absent: pronater drift, facial droop, speech deficit - Skin Skin exam: Present: dry, intact
[2016-05-18 08:21] VITALS: BP 143/72
[2016-05-18] MEDS: Aspirin Enteric Coated 81 MG Tablet PO SCH (08:24)
[2016-05-18] MEDS: Isosorbide MONOnitrate (24 HR) 60 MG TAB.ER.24H PO SCH (08:24)
[2016-05-18] MEDS: Insulin LISPRO 300 UNITS/3 ML VIAL SQ SCH (08:24)
[2016-05-18] MEDS: Furosemide 40 MG/4 ML VIAL IV SCH (08:24)
[2016-05-18] MEDS: Metoprolol XL (24 HR) Succ 50 MG TAB.ER.24H PO SCH (08:25)
[2016-05-18] MEDS: Ranolazine 500 MG TAB.ER.12H PO SCH (08:25)
--- NOTE | 2016-05-18 08:34 | Physician Discharge Referral ---
Home Health/Hosp Referral Info Transfer to: Home Health Provider in Charge Post Discharge: PCP - Diagnosis (1) Congestive heart failure Status: Acute (2) Avulsion of toenail of left foot Status: Acute (3) DM type 2 with diabetic peripheral neuropathy Status: Acute (4) PVD (peripheral vascular disease) Status: Acute (5) CVA (cerebral vascular accident) Status: Chronic (6) Generalized weakness Status: Chronic (7) Anemia Status: Acute - Respiratory Orders Smoking Cessation: Smoking cessation has been advised. For more information, call the [place] Tobacco Quit Line at 6-526-PAKK-NOW. - Diet/Nutrition Diet/Nutrition Orders: No Added Salt (DUKE) (Diabetic diet 1800 kcal) - Services Needed Following services are medically necessary services: Nursing, Home Health Aide, Physical Therapy Home Care Orders: Follow-up with primary care physician within the next 7 days. Continue Lasix 40 mg daily, may increase to 40 mg twice a day if more short of breath. Continue Lantus, Plavix, resume aspirin. Needs wound care: cleansing left great toe daily with mild soap and water, pat dry, apply adaptic with 4x4 gauze and tape. Follow with podiatry within the next 7 days. Quit smoking. Follow report of echocardiogram and LEXI with primary care physician DNR CC arrest DNI - Transfer Medications Prescriptions: Alprazolam [Xanax 0.5 MG Tablet] 0.5 mg PO HS PRN #20 tablet PRN Reason: Anxiety Atorvastatin [Lipitor] 40 mg PO DAILY #30 tablet Clopidogrel [Plavix] 75 mg PO DAILY #30 tablet Fenofibrate [Lofibra] 160 mg PO DAILY 30 Days Furosemide [Lasix] 40 mg PO DAILY 60 Days Gabapentin [Neurontin] 400 mg PO TID 30 Days Isosorbide MONOnitrate (24 HR) [Imdur] 60 mg PO DAILY 30 Days Lisinopril 2.5 mg PO DAILY #30 tablet Metoprolol XL (24 HR) Succ [Toprol Xl] 50 mg PO DAILY 30 Days OxyCODONE/APAP 7.5/325 [Percocet 7.5/325 MG] 1 each PO BID PRN #20 tablet PRN Reason: Pain Potassium Chloride 10 meq PO DAILY #30 tab.er.prt Ranolazine [Ranexa] 500 mg PO BID 30 Days Home Medications: Albuterol Sulfate [Albuterol Inhaler] 2 puff IH Q4HR PRN 12/20/14 [History] Amitriptyline [Elavil] 25 mg PO HS 12/20/14 [History] Aspirin Enteric Coated [Aspirin EC] 81 mg PO DAILY 12/20/14 [History] Fludrocortisone Acetate [Florinef] 0.1 mg PO DAILY 12/20/14 [History] Fluticasone/Salmeterol [Advair 250-50 Diskus] 1 puff IH BID 12/20/14 [History] Insulin ASPART [NovoLOG] 4 - 5 unit SQ TIDWM 12/20/14 [History] Insulin DETEMIR [Levemir] 40 unit SQ BID 12/20/14 [History] Ipratropium/Albuterol Neb [Duoneb] 3 ml IH Q6HR 12/20/14 [History] Oxycodone HCl/Acetaminophen [Percocet 7.5-325 mg Tablet] 1 each PO BID 12/20/14 [History] Alprazolam [Xanax 0.5 MG Tablet] 0.5 mg PO HS PRN #20 tablet 05/18/16 [Rx] Atorvastatin [Lipitor] 40 mg PO DAILY #30 tablet 05/18/16 [Rx] Clopidogrel [Plavix] 75 mg PO DAILY #30 tablet 05/18/16 [Rx] Fenofibrate [Lofibra] 160 mg PO DAILY 30 Days 05/18/16 [Rx] Furosemide [Lasix] 40 mg PO DAILY 60 Days 05/18/16 [Rx] Gabapentin [Neurontin] 400 mg PO TID 30 Days 05/18/16 [Rx] Isosorbide MONOnitrate (24 HR) [Imdur] 60 mg PO DAILY 30 Days 05/18/16 [Rx] Lisinopril 2.5 mg PO DAILY #30 tablet 05/18/16 [Rx] Metoprolol XL (24 HR) Succ [Toprol Xl] 50 mg PO DAILY 30 Days 05/18/16 [Rx] OxyCODONE/APAP 7.5/325 [Percocet 7.5/325 MG] 1 each PO BID PRN #20 tablet [Rx] Potassium Chloride 10 meq PO DAILY #30 tab.er.prt 05/18/16 [Rx] Ranolazine [Ranexa] 500 mg PO BID 30 Days 05/18/16 [Rx] Allergies/Adverse Reactions: Allergies ciprofloxacin [From Cipro] Allergy (Verified 05/16/16 22:20) Hives insulin glargine [From Lantus] Allergy (Verified 05/16/16 22:20) Blister codeine Adverse Reaction (Verified 05/16/16 22:20) Hives Certification: Further, I certify that my clinical findings support that this patient is homebound (i.e. absences from home require considerable and taxing effort and are for medical reasons or yazdanism services or infrequently or short duration when for other reasons) because: Homebound Reason: Patient requires assistance of a person or device to safely leave home Attestation: My signature below is to certify that this patient is under my care and that I, or nurse practitioner, or a physician's assistant to the dean working with me, has a face-to -face encounter with this patient.
--- NOTE | 2016-05-18 17:28 | Arterial Study Report ---
LE Arterial Physiologic Study Patient Name:Antionette Mckeon Order Number:[id number] Procedure Date:05/17/2016 Date:1970Age:46 yrs Gender:Female Lt BP:119 / mmHg Rt.BP:122 / mmHgHeart Rate: Location:[facility] Room #: [facility] Residency Director:Sammie Rao RDCS Referring MD:Garrett Lenz MD warehouse attendant:None Reading MD:Fritz Piper MD Primary Indications:Unable to palpate pedal pulses Risk Factors Yes/No Hypertension Yes Diabetes Yes Hypercholesterolemia Yes Smoker Previous Yes Hx of CVA Yes Hx of CAD/PTCA Yes Previous Vascular Surgery Yes Impressions: The right LEXI and waveforms are consistent with moderate disease. Right LEXI 0.62. The left LEXI and waveforms are consistent with severe disease. Left LEXI 0.48. Recommendations: Further evaluation recommended. Test completed on 05/17/2016 at 4:10:00 pm. Critical findings reported to Pt RN in person at 4:10:00 pm on 05/17/2016 by Sammie Rao RDCS. Findings LE Arterial Physiologic Exam: PVR: Right: The PVR waveforms are severely diminished in the right ankle. Left: The PVR waveforms are severely diminished in the left ankle. Prior Study: Significant changes noted compared to prior study dated: 04/04/2015. Segmental Pressures Side Location Pressure Index Result Right Posterior Tibial 68 0.56 Moderately Diminished Right Dorsalis Pedis 76 0.62 Moderately Diminished Left Posterior Tibial 58 0.48 Severely Diminished Left Dorsalis Pedis 54 0.44 Severely Diminished Ankle Brachial Index Right Systolic Diastolic LEXI Brachial 122 0.62 Dorsalis Pedis 76 0.62 Posterior Tibial 68 0.56 Left Systolic Diastolic LEXI Brachial 119 0.48 Dorsalis Pedis 54 0.44 Posterior Tibial 58 0.48 Updated by Fritz Piper MD on 05/18/2016 5:23:28 PM with Status of Final electronically signed on 05/18/2016 5:23:59 PM with status of Final
[2016-05-19 17:14] LABS: CK-BB (CK isoenzymes) 0 % (0-0); CK-MB (CK isoenzymes) 0 % (0-4); CK-MM (CK-isoenzymes) 100 % (96-100)
[2016-05-20 11:18] LABS: CK Total (Ck Isoenzymes) 142 U/L (20-180)
== END 2016-05-18 11:38 | disposition home health service (06) ==
LOC: 3BNU 22:07 → EMEROO 22:07 → SUATTDRO 05-17 00:54 → 3BNU 05-17 02:42
PROVIDERS: ADMIT Internal Medicine; ATTEND Internal Medicine

== ENCOUNTER 2016-06-17 22:38 | Inpatient (IN) ==
--- NOTE | 2016-06-17 22:44 | Emergency Department Note ---
START Narrative - START START: Called to patient bedside for complaint of shortness of breath that started earlier today. Patient states this feels similar to her congestive heart. The past. Patient has some chest pain is associated. Per EMS report they attempted BiPAP on patient but she did not tolerated and be placed on a 15 L nonrebreather. Patient states she feels okay but she is having trouble catching his breath this patient will be turned over to the night team for further care and workup Critical care time spent with patient was 1 hour
[2016-06-17] MEDS ORDERED: Ipratropium/Albuterol Neb 3 ML IH ONE (22:50)
[2016-06-17 23:00] LABS: Basophils # 0.1 K/mcL (0.0-0.2); Basophils % 1.1 %; Eosinophils # 0.5 K/mcL (0.0-0.6); Eosinophils % 4.4 %; Hematocrit 39.4 % (35.3-44.9); Hemoglobin 12.3 g/dL (11.5-15.4); Immature Granulocytes % 0.6 % (0-4); Lymphocytes # 1.7 K/mcL (0.6-4.6); Lymphocytes % 16.9 %; Mean Corpuscular HGB Conc 31.2 g/dL (31.6-35.5); Mean Corpuscular Hemoglobin 27.3 pg (28.0-33.3); Mean Corpuscular Volume 87.6 fL (83.0-100.0); Mean Platelet Volume 9.1 fL (9.4-12.4); Monocytes # 0.6 K/mcL (0.0-1.3); Monocytes % 5.9 %; Neutrophils # 7.3 K/mcL (1.6-8.9); Platelet Count 530 K/mcL (140-400); Red Cell Distribution Width 15.3 % (11.5-14.5); Segmented Neutrophils % 71.1 %
[2016-06-17 23:15] LABS: Albumin 2.2 g/dL (3.5-5.0); Albumin/Globulin Ratio 0.6 (1.1-2.2); Bilirubin,Total 0.8 mg/dL (0.2-1.2); Calcium 8.1 mg/dL (8.6-10.8); Globulin 3.9 g/dL (2.4-3.5); Potassium 4.8 mEq/L (3.5-4.5); Total Protein 6.1 g/dL (6.0-8.3)
[2016-06-17 23:21] LABS: INR 1.2; Prothrombin Time 13.2 Seconds (9.4-12.1)
[2016-06-17 23:23] LABS: Activated Partial Thrombo Time 31.3 Seconds (26.0-36.0)
[2016-06-17] MEDS ORDERED: Furosemide 40 MG/4 ML VIAL IVP ONE (23:33)
--- NOTE | 2016-06-18 00:42 | Emergency Department Note ---
Disposition Clinical Impression: CHF (congestive heart failure) Qualifiers: Congestive heart failure type: unspecified congestive heart failure type Congestive heart failure chronicity: acute on chronic Qualified Code(s): I50.9 - Heart failure, unspecified Disposition: Admitted As Inpatient Condition: Fair Time of Disposition: 00:51 SOB HPI - General Chief Complaint: ED Chest Pain Stated Complaint: 'chest pain" Time Seen by Provider: 06/17/16 23:56 Nursing Notes Reviewed: Yes Vital Signs Reviewed: Yes - History of Present Illness Pt Subjective Complaint: shortness of breath Onset (ago): hour(s) Context: medication noncompliance Severity: severe Consistency/Duration: gradually worsening Improves with: upright position Worsens with: lying flat Known history of: congestive heart failure Associated symptoms: Reports: chest pain, other (BLE edema). Denies: fever, sputum production Treatment prior to arrival: other (bipap via ems) Cough present: Yes Cough Description: Dry Cough Frequency: Intermittent Sputum production: No - Related Data Home Medications Medication Instructions Recorded Confirmed Albuterol Sulfate [Proair Hfa] 2 puff IH Q4H PRN 06/18/16 06/18/16 Alprazolam [Xanax 0.5 MG Tablet] 0.5 mg PO HS 06/18/16 06/18/16 Aspirin [Lo-Dose Aspirin EC] 81 mg PO DAILY 06/18/16 06/18/16 Atorvastatin [Lipitor] 40 mg PO HS 06/18/16 06/18/16 Clopidogrel [Plavix] 75 mg PO DAILY 06/18/16 06/18/16 Docusate [Colace] 100 mg PO BID 06/18/16 06/18/16 Fenofibrate [Lofibra] 160 mg PO DAILY 06/18/16 06/18/16 Furosemide [Lasix] 40 mg PO DAILY 06/18/16 06/18/16 Gabapentin [Neurontin] 400 mg PO TID 06/18/16 06/18/16 Insulin ASPART [NovoLOG] 2 - 6 unit SQ TIDWM 06/18/16 06/18/16 Insulin DETEMIR [Levemir] 6 unit SQ QAM 06/18/16 06/18/16 Insulin DETEMIR [Levemir] 40 unit SQ HS 06/18/16 06/18/16 Isosorbide MONOnitrate (24 HR) 60 mg PO DAILY 06/18/16 06/18/16 [Imdur] Lisinopril 2.5 mg PO DAILY 06/18/16 06/18/16 Metoprolol XL (24 HR) Succ [Toprol 50 mg PO DAILY 06/18/16 06/18/16 XL] Potassium Chloride [Klor-Con 10 meq PO BID 06/18/16 06/18/16 Sprinkle] Ranolazine [Ranexa] 500 mg PO BID 06/18/16 06/18/16 Allergies Allergy/AdvReac Type Severity Reaction Status Date / Time ciprofloxacin [From Cipro] Allergy Hives Verified 05/16/16 22:20 codeine Allergy Hives Verified 06/18/16 10:32 insulin glargine Allergy Hives Verified 06/18/16 10:32 [From Lantus] All systems ED: reviewed and negative except as stated. Constitutional: Denies: fever, chills Eyes: Denies: vision change ENT ED: Denies: throat pain Cardiovascular: Denies: chest pain Respiratory: Reports: as per HPI. Denies: wheezes, hemoptysis Gastrointestinal: Denies: nausea, vomiting, diarrhea Genitourinary: Denies: dysuria Musculoskeletal: Denies: back pain Neurological: Denies: headache Psychiatric: Denies: anxiety Endocrine: Denies: fatigue Hematological/Lymphatic: Denies: easy bleeding Allergic/Immunologic: Denies: facial swelling Past Medical History - Past Medical History Medical history: Reports: cardiomyopathy, cirrhosis, COPD, coronary artery disease, CVA, diabetes, peripheral artery disease, renal disease, TIA, other Surgical history: Reports: appendectomy, cholecystectomy, hysterectomy, orthopedic, other, other Psychiatric history: Reports: anxiety PASSENGER AGENT history: Reports: non-contributory - Social History Smoking Status: Current every day smoker Smokeless Tobacco Status: No Alcohol use: Reports: none Drug use: Reports: none Physical Exam - General Limitations: no limitations General appearance: alert - Head Head exam: normocephalic - Eye Eye exam: Present: EOMI - ENT ENT exam: mucous membranes moist - Neck Neck exam: Present: full ROM - Chest Chest inspection: Present: symmetric chest wall rise. Absent: tenderness - Respiratory Respiratory exam: Absent: respiratory distress - Expanded Respiratory Exam Location: decreased breath sounds: Left, Right, Lower - Cardiovascular Cardiovascular exam: Present: regular rate, normal rhythm - Abdominal Exam Abdominal exam: Present: soft, Non-Tender - Extremities Exam Extremities exam: Present: normal capillary refill, pedal edema (bilateral) - Back Exam Back exam: Present: full ROM - Neurological Exam Neurological exam: Present: alert - Psychiatric Psychiatric exam: Present: normal affect - Skin Skin exam: Present: warm, dry, intact, normal color. Absent: rash, cyanosis, diaphoresis Course Course Narrative: patient initially seen by albin.Due to change, care of this patient was transferred to [place] from [facility]. Please see their earlier documentation for details. - Reevaluation(s) Reevaluation #1: 46-year-old female diabetic with known history of CHF arrives by squad with worsening shortness of breath. She states this came on while she was resting at home. She compared to her past exacerbations of CHF. Worse with lying down and better with sitting up. She has had a dry cough since her last admission a few months ago. Her shortness of breath was accompanied with some mild chest pain. She mentioned she is compliant with her Lasix however had ran out of her previous "heart medications" because they did not have refills. She denies any fevers, abdominal pain, hemoptysis. Vital Signs Pulse Rate 83 06/17/16 22:43 Respiratory Rate 18 06/17/16 22:43 Blood Pressure 156/90 06/17/16 22:43 O2 Sat by Pulse Oximetry 92 L 06/17/16 22:43 Temperature 98.5 F 06/23/16 19:43 Pulse Rate 96 06/23/16 19:43 Respiratory Rate 16 06/23/16 19:43 Blood Pressure 148/73 06/23/16 19:43 O2 Sat by Pulse Oximetry 95 06/23/16 19:43 Oxygen Delivery Oxygen Delivery Nasal Cannula Shortness of Breath/Dyspnea - [facility] Narrative Medical decision making narrative: Patient has known history of CHF who presents with similar symptoms of her past CHF exacerbations. Patient was initially seen by albin, who had ordered initial workup. Elevated BNP, and worsening pulmonary edema on chest x-ray. Patient had been treated with breathing treatment and BiPAP here. Her symptoms have improved. Patient discussed with hospitalist, and patient was accepted for admission. Patient currently stable symptoms improved. Patient stable for inpatient care. Chest X-Ray 06/17/16 22:42 IMPRESSION: Slight worsening pulmonary edema. D/ / Dante Beltrán MD / Dante Beltrán MD Interpreting Provider: Dante Beltrán MD All Lab Results (24 Hours) 06/17/16 06/17/16 06/17/16 Range/Units 22:53 22:53 22:53 WBC 10.3 (4.3-11.1) K/mcL RBC 4.50 (3.82-4.97) M/mcL Hgb 12.3 (11.5-15.4) g/dL Hct 39.4 (35.3-44.9) % MCV 87.6 (83.0-100.0) fL MCH 27.3 L (28.0-33.3) pg MCHC 31.2 L (31.6-35.5) g/dL RDW 15.3 H (11.5-14.5) % Plt Count 530 H (140-400) K/mcL MPV 9.1 L (9.4-12.4) fL Immature Gran % 0.6 (0-4) % Seg Neutrophils % 71.1 % Lymphocytes % 16.9 % Monocytes % 5.9 % Eosinophils % 4.4 % Basophils % 1.1 % Neutrophils # 7.3 (1.6-8.9) K/mcL Lymphocytes # 1.7 (0.6-4.6) K/mcL Monocytes # 0.6 (0.0-1.3) K/mcL Eosinophils # 0.5 (0.0-0.6) K/mcL Basophils # 0.1 (0.0-0.2) K/mcL PT 13.2 H (9.4-12.1) Seconds INR 1.2 APTT 31.3 (26.0-36.0) Seconds Sodium 133 L (136-145) mEq/L Potassium 4.8 H (3.5-4.5) mEq/L Chloride 98 (98-109) mEq/L Carbon Dioxide 27 (19-29) mEq/L BUN 17 (7-20) mg/dL Creatinine 1.36 H (0.57-1.11) mg/dL Est GFR ( Amer) 50 L (> 60) Est GFR (Non-Af Amer) 41 L (> 60) BUN/Creatinine Ratio 13 (6-26) Glucose 467 H (70-99) mg/dL Calculated Osmolality 298 (280-300) Lactic Acid (0.5-2.2) mmol/L Calcium 8.1 L (8.6-10.8) mg/dL Total Bilirubin 0.8 (0.2-1.2) mg/dL AST 25 (5-34) Units/L ALT 9 (0-55) Units/L Alkaline Phosphatase 82 (38-126) Units/L Troponin I (0-0.03) ng/mL B-Natriuretic Peptide (0-100) pg/mL Serum Total Protein 6.1 (6.0-8.3) g/dL Albumin 2.2 L (3.5-5.0) g/dL Globulin 3.9 H (2.4-3.5) g/dL Albumin/Globulin Ratio 0.6 L (1.1-2.2) 06/17/16 06/17/16 06/17/16 Range/Units 22:53 22:53 22:53 WBC (4.3-11.1) K/mcL RBC (3.82-4.97) M/mcL Hgb (11.5-15.4) g/dL Hct (35.3-44.9) % MCV (83.0-100.0) fL MCH (28.0-33.3) pg MCHC (31.6-35.5) g/dL RDW (11.5-14.5) % Plt Count (140-400) K/mcL MPV (9.4-12.4) fL Immature Gran % (0-4) % Seg Neutrophils % % Lymphocytes % % Monocytes % % Eosinophils % % Basophils % % Neutrophils # (1.6-8.9) K/mcL Lymphocytes # (0.6-4.6) K/mcL Monocytes # (0.0-1.3) K/mcL Eosinophils # (0.0-0.6) K/mcL Basophils # (0.0-0.2) K/mcL PT (9.4-12.1) Seconds INR APTT (26.0-36.0) Seconds Sodium (136-145) mEq/L Potassium (3.5-4.5) mEq/L Chloride (98-109) mEq/L Carbon Dioxide (19-29) mEq/L BUN (7-20) mg/dL Creatinine (0.57-1.11) mg/dL Est GFR ( Amer) (> 60) Est GFR (Non-Af Amer) (> 60) BUN/Creatinine Ratio (6-26) Glucose (70-99) mg/dL Calculated Osmolality (280-300) Lactic Acid 1.3 (0.5-2.2) mmol/L Calcium (8.6-10.8) mg/dL Total Bilirubin (0.2-1.2) mg/dL AST (5-34) Units/L ALT (0-55) Units/L Alkaline Phosphatase (38-126) Units/L Troponin I 0.02 (0-0.03) ng/mL B-Natriuretic Peptide 3377 H (0-100) pg/mL Serum Total Protein (6.0-8.3) g/dL Albumin (3.5-5.0) g/dL Globulin (2.4-3.5) g/dL Albumin/Globulin Ratio (1.1-2.2) - Lab Data Lab results reviewed: Yes I reviewed the patient's lab results. Result diagrams: 06/23/16 08:10 06/23/16 08:10 Lab Results 06/17/16 06/17/16 06/17/16 Range/Units 22:53 22:53 22:53 WBC 10.3 (4.3-11.1) K/mcL RBC 4.50 (3.82-4.97) M/mcL Hgb 12.3 (11.5-15.4) g/dL Hct 39.4 (35.3-44.9) % MCV 87.6 (83.0-100.0) fL MCH 27.3 L (28.0-33.3) pg MCHC 31.2 L (31.6-35.5) g/dL RDW 15.3 H (11.5-14.5) % Plt Count 530 H (140-400) K/mcL MPV 9.1 L (9.4-12.4) fL Immature Gran % 0.6 (0-4) % Seg Neutrophils % 71.1 % Lymphocytes % 16.9 % Monocytes % 5.9 % Eosinophils % 4.4 % Basophils % 1.1 % Neutrophils # 7.3 (1.6-8.9) K/mcL Lymphocytes # 1.7 (0.6-4.6) K/mcL Monocytes # 0.6 (0.0-1.3) K/mcL Eosinophils # 0.5 (0.0-0.6) K/mcL Basophils # 0.1 (0.0-0.2) K/mcL PT 13.2 H (9.4-12.1) Seconds INR 1.2 APTT 31.3 (26.0-36.0) Seconds Sodium 133 L (136-145) mEq/L Potassium 4.8 H (3.5-4.5) mEq/L Chloride 98 (98-109) mEq/L Carbon Dioxide 27 (19-29) mEq/L BUN 17 (7-20) mg/dL Creatinine 1.36 H (0.57-1.11) mg/dL Est GFR ( Amer) 50 L (> 60) Est GFR (Non-Af Amer) 41 L (> 60) BUN/Creatinine Ratio 13 (6-26) Glucose 467 H (70-99) mg/dL POC Glucose (58-89) Calculated Osmolality 298 (280-300) Lactic Acid (0.5-2.2) mmol/L Calcium 8.1 L (8.6-10.8) mg/dL Magnesium (1.6-2.6) mg/dL Total Bilirubin 0.8 (0.2-1.2) mg/dL AST 25 (5-34) Units/L ALT 9 (0-55) Units/L Alkaline Phosphatase 82 (38-126) Units/L Troponin I (0-0.03) ng/mL B-Natriuretic Peptide (0-100) pg/mL Serum Total Protein 6.1 (6.0-8.3) g/dL Albumin 2.2 L (3.5-5.0) g/dL Globulin 3.9 H (2.4-3.5) g/dL Albumin/Globulin Ratio 0.6 L (1.1-2.2) 06/17/16 06/17/16 06/17/16 Range/Units 22:53 22:53 22:53 WBC (4.3-11.1) K/mcL RBC (3.82-4.97) M/mcL Hgb (11.5-15.4) g/dL Hct (35.3-44.9) % MCV (83.0-100.0) fL MCH (28.0-33.3) pg MCHC (31.6-35.5) g/dL RDW (11.5-14.5) % Plt Count (140-400) K/mcL MPV (9.4-12.4) fL Immature Gran % (0-4) % Seg Neutrophils % % Lymphocytes % % Monocytes % % Eosinophils % % Basophils % % Neutrophils # (1.6-8.9) K/mcL Lymphocytes # (0.6-4.6) K/mcL Monocytes # (0.0-1.3) K/mcL Eosinophils # (0.0-0.6) K/mcL Basophils # (0.0-0.2) K/mcL PT (9.4-12.1) Seconds INR APTT (26.0-36.0) Seconds Sodium (136-145) mEq/L Potassium (3.5-4.5) mEq/L Chloride (98-109) mEq/L Carbon Dioxide (19-29) mEq/L BUN (7-20) mg/dL Creatinine (0.57-1.11) mg/dL Est GFR ( Amer) (> 60) Est GFR (Non-Af Amer) (> 60) BUN/Creatinine Ratio (6-26) Glucose (70-99) mg/dL POC Glucose (58-89) Calculated Osmolality (280-300) Lactic Acid 1.3 (0.5-2.2) mmol/L Calcium (8.6-10.8) mg/dL Magnesium (1.6-2.6) mg/dL Total Bilirubin (0.2-1.2) mg/dL AST (5-34) Units/L ALT (0-55) Units/L Alkaline Phosphatase (38-126) Units/L Troponin I 0.02 (0-0.03) ng/mL B-Natriuretic Peptide 3377 H (0-100) pg/mL Serum Total Protein (6.0-8.3) g/dL Albumin (3.5-5.0) g/dL Globulin (2.4-3.5) g/dL Albumin/Globulin Ratio (1.1-2.2) 06/18/16 06/18/16 06/18/16 Range/Units 03:29 06:59 06:59 WBC 8.5 (4.3-11.1) K/mcL RBC 4.34 (3.82-4.97) M/mcL Hgb 11.7 (11.5-15.4) g/dL Hct 38.4 (35.3-44.9) % MCV 88.5 (83.0-100.0) fL MCH 27.0 L (28.0-33.3) pg MCHC 30.5 L (31.6-35.5) g/dL RDW 15.2 H (11.5-14.5) % Plt Count 451 H (140-400) K/mcL MPV 8.9 L (9.4-12.4) fL Immature Gran % 0.4 (0-4) % Seg Neutrophils % 63.2 % Lymphocytes % 22.4 % Monocytes % 6.4 % Eosinophils % 6.3 % Basophils % 1.3 % Neutrophils # 5.4 (1.6-8.9) K/mcL Lymphocytes # 1.9 (0.6-4.6) K/mcL Monocytes # 0.5 (0.0-1.3) K/mcL Eosinophils # 0.5 (0.0-0.6) K/mcL Basophils # 0.1 (0.0-0.2) K/mcL PT (9.4-12.1) Seconds INR APTT (26.0-36.0) Seconds Sodium 141 D (136-145) mEq/L Potassium 3.2 L D (3.5-4.5) mEq/L Chloride 100 (98-109) mEq/L Carbon Dioxide 33 H (19-29) mEq/L BUN 16 (7-20) mg/dL Creatinine 1.17 H (0.57-1.11) mg/dL Est GFR ( Amer) 60 (> 60) Est GFR (Non-Af Amer) 49 L (> 60) BUN/Creatinine Ratio 14 (6-26) Glucose 108 H (70-99) mg/dL POC Glucose 376 H (58-89) Calculated Osmolality 294 (280-300) Lactic Acid (0.5-2.2) mmol/L Calcium 8.1 L (8.6-10.8) mg/dL Magnesium 1.3 L (1.6-2.6) mg/dL Total Bilirubin 0.6 (0.2-1.2) mg/dL AST 13 (5-34) Units/L ALT 7 (0-55) Units/L Alkaline Phosphatase 80 (38-126) Units/L Troponin I (0-0.03) ng/mL B-Natriuretic Peptide (0-100) pg/mL Serum Total Protein 5.6 L (6.0-8.3) g/dL Albumin 2.1 L (3.5-5.0) g/dL Globulin 3.5 (2.4-3.5) g/dL Albumin/Globulin Ratio 0.6 L (1.1-2.2) 06/18/16 06/18/16 06/18/16 Range/Units 06:59 07:38 11:47 WBC (4.3-11.1) K/mcL RBC (3.82-4.97) M/mcL Hgb (11.5-15.4) g/dL Hct (35.3-44.9) % MCV (83.0-100.0) fL MCH (28.0-33.3) pg MCHC (31.6-35.5) g/dL RDW (11.5-14.5) % Plt Count (140-400) K/mcL MPV (9.4-12.4) fL Immature Gran % (0-4) % Seg Neutrophils % % Lymphocytes % % Monocytes % % Eosinophils % % Basophils % % Neutrophils # (1.6-8.9) K/mcL Lymphocytes # (0.6-4.6) K/mcL Monocytes # (0.0-1.3) K/mcL Eosinophils # (0.0-0.6) K/mcL Basophils # (0.0-0.2) K/mcL PT (9.4-12.1) Seconds INR APTT (26.0-36.0) Seconds Sodium (136-145) mEq/L Potassium (3.5-4.5) mEq/L Chloride (98-109) mEq/L Carbon Dioxide (19-29) mEq/L BUN (7-20) mg/dL Creatinine (0.57-1.11) mg/dL Est GFR ( Amer) (> 60) Est GFR (Non-Af Amer) (> 60) BUN/Creatinine Ratio (6-26) Glucose (70-99) mg/dL POC Glucose 111 H 69 (58-89) Calculated Osmolality (280-300) Lactic Acid (0.5-2.2) mmol/L Calcium (8.6-10.8) mg/dL Magnesium (1.6-2.6) mg/dL Total Bilirubin (0.2-1.2) mg/dL AST (5-34) Units/L ALT (0-55) Units/L Alkaline Phosphatase (38-126) Units/L Troponin I 0.02 (0-0.03) ng/mL B-Natriuretic Peptide (0-100) pg/mL Serum Total Protein (6.0-8.3) g/dL Albumin (3.5-5.0) g/dL Globulin (2.4-3.5) g/dL Albumin/Globulin Ratio (1.1-2.2) /17/ Range/Units 12:26 WBC (4.3-11.1) K/mcL RBC (3.82-4.97) M/mcL Hgb (11.5-15.4) g/dL Hct (35.3-44.9) % MCV (83.0-100.0) fL MCH (28.0-33.3) pg MCHC (31.6-35.5) g/dL RDW (11.5-14.5) % Plt Count (140-400) K/mcL MPV (9.4-12.4) fL Immature Gran % (0-4) % Seg Neutrophils % % Lymphocytes % % Monocytes % % Eosinophils % % Basophils % % Neutrophils # (1.6-8.9) K/mcL Lymphocytes # (0.6-4.6) K/mcL Monocytes # (0.0-1.3) K/mcL Eosinophils # (0.0-0.6) K/mcL Basophils # (0.0-0.2) K/mcL PT (9.4-12.1) Seconds INR APTT (26.0-36.0) Seconds Sodium (136-145) mEq/L Potassium (3.5-4.5) mEq/L Chloride (98-109) mEq/L Carbon Dioxide (19-29) mEq/L BUN (7-20) mg/dL Creatinine (0.57-1.11) mg/dL Est GFR ( Amer) (> 60) Est GFR (Non-Af Amer) (> 60) BUN/Creatinine Ratio (6-26) Glucose (70-99) mg/dL POC Glucose (58-89) Calculated Osmolality (280-300) Lactic Acid (0.5-2.2) mmol/L Calcium (8.6-10.8) mg/dL Magnesium (1.6-2.6) mg/dL Total Bilirubin (0.2-1.2) mg/dL AST (5-34) Units/L ALT (0-55) Units/L Alkaline Phosphatase (38-126) Units/L Troponin I 0.02 (0-0.03) ng/mL B-Natriuretic Peptide (0-100) pg/mL Serum Total Protein (6.0-8.3) g/dL Albumin (3.5-5.0) g/dL Globulin (2.4-3.5) g/dL Albumin/Globulin Ratio (1.1-2.2) - Radiology Data Radiology results reviewed: Yes I reviewed the patient's radiology results. - EKG Data EKG attestation: Yes I reviewed and interpreted this EKG. EKG results narrative: Nonspecific ST-T wave abnormalities, sinus rhythm, Attestation Statement - Attestation Attestation: For this encounter, I have reviewed the AIR CONDITIONING MECHANIC INDUSTRIAL or PA documentation, treatment plan, and medical decision making; and I have had face to face time with this patient.
[2016-06-18] MEDS ORDERED: D5% in Water 1,000 ML IV PRN ×2 (04:01→05:40)
[2016-06-18] MEDS ORDERED: Dextrose Gel 15 GM PO PRN ×4 (04:01→05:40)
[2016-06-18] MEDS: Insulin LISPRO 300 UNITS/3 ML VIAL SQ SCH ×4 (04:36→16:32)
[2016-06-18] MEDS ORDERED: Naloxone 0.4 MG/ML INJ IVP PRN (05:40)
[2016-06-18] MEDS ORDERED: *HR* Morphine 2 MG/ML SYRINGE IVP PRN (05:40)
[2016-06-18] MEDS ORDERED: Ondansetron 4 MG/2 ML VIAL IVP PRN (05:40)
[2016-06-18] MEDS ORDERED: *HR* Dextrose 50 % in Water (Syg) 50 ML SYRINGE IVP PRN (05:40)
[2016-06-18] MEDS ORDERED: Ipratropium/Albuterol Neb 3 ML IH PRN (05:40)
--- NOTE | 2016-06-18 05:55 | Internal Med History&Physical ---
Date of Encounter: 06/18/16 Time of Encounter: 05:50 Assessment and Plan (1) Congestive heart failure Current visit: No Status: Acute 1. Will diurese with Lasix and fluid restrict. 2. Oxygen as needed. 3. Will cycle troponins and EKG's. 4. Will order ECHO to reassess LV function. Qualifiers: Congestive heart failure type: diastolic Congestive heart failure chronicity: acute on chronic Qualified Code(s): I50.33 - Acute on chronic diastolic (congestive) heart failure (2) Diabetes mellitus Current visit: No Status: Chronic 1. Will start SSI and basal insulin (Levemir). 2. Pt needs diabetic education and compliance. 3. Needs PCP. Pt has not had PCP in a while. 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 Consult social work for assistance in arranging proper follow up. 2. One of patient's biggest barriers to health is her non-compliance. I counseled patient on the need for proper medical follow up and healthy lifestyle. (4) DVT prophylaxis Current visit: Yes Status: Acute 1. Heparin SQ. Internal Medicine - H&P: HPI Chief complaint: SOB Admitted From: Emergency Dept Plans for Post Hospital Care: Home History of present illness: Ms. Mckeon is a 46 year old female with a 2-3 day history of shortness of breath, increasing abdominal girth, lower extremity edema, and orthopnea. She was seen in the ER and diagnosed with congestive heart failure. She was given a dose of diuretics and admitted to hospitalist service. Upon my assessment of the patient, she appears relatively stable and in no acute distress. She is sleeping but easily arousable. She denies any chest pain. She does admit to profound worsening shortness of breath over the last few days along with her increasing abdominal girth. She does feel a little better after some diuresis in the ER. I reviewed her old records and her old echo last year, which revealed normal LV systolic function but she did have some mild diastolic dysfunction. She does not have a PCP and appears to be noncompliant with her medications. Her diabetes is poorly controlled, and she does not take any regular cardiac medications. She states she is due to see a insulating machine operator next week in consultation. Despite her history of strokes, heart attack, and CHF, she continues to smoke. She used to smoke up to 4 packs per day but she is down to one half pack per day now. Unfortunately, it appears her diet is suboptimal as well. She denies any complaints of fever, productive cough, chest pain, vomiting, nausea, or diarrhea. Past Med Surg Social Fam HX - Past Medical History Attestation: Yes The following information was validated with the patient. Source: patient, old records reviewed Medical history: cardiomyopathy, cirrhosis, COPD, coronary artery disease, CVA, diabetes, peripheral artery disease, renal disease, TIA Psychiatric history: anxiety - Past Surgical History Surgical History: appendectomy, cholecystectomy, hysterectomy, orthopedic, other , other - Social History Smoking Status: Current every day smoker Packs per day: 0.5 Smokeless Tobacco Status: No Alcohol use: none Drug use: none Current living situation: Home, With Family Recent Out of Country Travel Within the Last 8 Weeks: No - Family History Father History Unknown: Yes Adopted: [place]: [place] Family Member Ethnicity: Non- Living Status: Age at : 58 Cause of : COPD Hx Family Cardiac Disorders: No Hx Family Respiratory Disorders: Yes Hx Family Cancer: Yes Hx Family Endocrine Disorder: Yes Hx Family Neurologic Disorders: No Internal Medicine - H&P: Meds Insulin ASPART [NovoLOG] 4 - 5 unit SQ TIDWM 12/20/14 [History] Insulin DETEMIR [Levemir] 40 unit SQ BID 12/20/14 [History] Gabapentin [Neurontin] 06/18/16 [History] Gabapentin [Neurontin] 400 mg PO TID 06/18/16 [History] Allergies ciprofloxacin [From Cipro] Allergy (Verified 05/16/16 22:20) Hives insulin glargine [From Lantus] Allergy (Verified 05/16/16 22:20) Blister codeine Adverse Reaction (Verified 05/16/16 22:20) Hives - Constitutional Constitutional: malaise, no chills, no fever(s) - EENT Eyes: no blurry vision, no change in vision Ears: no ear pain, no tinnitus Nose, mouth and throat: no nasal congestion, no sinus pain, no sore throat - Cardiovascular Cardiovascular ROS IM: dyspnea, dyspnea on exertion, edema, orthopnea, paroxysmal nocturnal dyspnea, no chest pain, no syncope - Respiratory Respiratory: dyspnea, dyspnea on exertion, no cough, no hemoptysis, no wheezing , no chest congestion, no excessive phlegm production, no change in phlegm color - Gastrointestinal Gastrointestinal: bloating, no abdominal pain, no diarrhea, no hematemesis, no hematochezia, no melena, no nausea, no vomiting - Genitourinary Genitourinary: no dysuria, no flank pain, no hematuria - Musculoskeletal Musculoskeletal ROS IM: muscle cramps, no arthralgias, no joint swelling, no muscle weakness, no myalgias - Integumentary Integumentary IM: no rash, no jaundice - Neurological Neurological ROS: abnormal speech (old since last stroke), paresthesias (chronic ), no focal weakness, no frequent falls, no headache(s) - Psychiatric Psychiatric: no anxiety, no depression - Endocrine Endocrine IM: polydipsia, no polyphagia, no polyuria - Allergic/Immunologic Allergic/Immunologic: no wheezing, no GI upset with certain foods - Constitutional Vitals: Temp Pulse Resp BP Pulse Ox 97.6 F 71 17 146/75 94 L 06/18/16 02:17 06/18/16 02:17 06/18/16 02:17 06/18/16 02:17 06/18/16 02:17 General appearance: Present: cachectic, A&O X 3, no acute distress, answers questions appropriately - Head Head exam: Present: atraumatic, normal inspection - Expanded Head Exam Head exam expanded: Absent: abrasion, contusion, general tenderness - Eye Eye exam: Present: EOMI, normal appearance, PERRL. Absent: scleral icterus Pupils: Present: normal accommodation - ENT ENT exam: Present: mucous membranes dry, normal exam, normal oropharynx - Neck Neck exam general surgery: Present: full ROM, supple. Absent: tenderness, thyromegaly - Respiratory Respiratory exam: Present: prolonged expiratory phase, rales (both bases), rhonchi. Absent: accessory muscle use, chest wall tenderness, wheezes - Cardiovascular Cardiovascular exam: Present: distant heart sounds, JVD, RRR, +S1, +S2. Absent : diastolic murmur, systolic murmur - GI/Abdominal GI/Abdominal exam: Present: distended, soft, no peritoneal signs. Absent: hepatomegaly, mass, splenomegaly Additional comments: mild shifting dullness to percussion - Extremities Exam Extremities exam: Present: full ROM, pedal edema (2+). Absent: calf tenderness , joint swelling - Back Exam Back exam: Present: normal inspection. Absent: CVA tenderness (L), CVA tenderness (R) - Neurological Exam Neurological exam: Present: alert, oriented X3, no focal deficits Additional comments: mild dysarthria -- old per patient from last stroke - Psychiatric Psychiatric exam: Present: normal affect, normal mood - Skin Skin exam: Present: dry, warm. Absent: rash Internal Med - H&P Results - Labs CBC & Chem 7: 06/17/16 22:53 06/17/16 22:53 - EKG Data -: EKG Interpreted by Myself - EKG Data Prior EKG available for review: no EKG comments: 06/18/16 06:02 Sinus rhythm; no acute ST-T changes - Diagnostic Studies Chest x-ray Status: image reviewed by me (cardiomgaly; pulmonary edema)
[2016-06-18] MEDS: *HR* Heparin 5,000 UNIT/ML VIAL SQ SCH ×3 (06:56→21:23)
[2016-06-18 07:21] LABS: Basophils # 0.1 K/mcL (0.0-0.2); Basophils % 1.3 %; Eosinophils # 0.5 K/mcL (0.0-0.6); Eosinophils % 6.3 %; Hematocrit 38.4 % (35.3-44.9); Hemoglobin 11.7 g/dL (11.5-15.4); Immature Granulocytes % 0.4 % (0-4); Lymphocytes # 1.9 K/mcL (0.6-4.6); Lymphocytes % 22.4 %; Mean Corpuscular HGB Conc 30.5 g/dL (31.6-35.5); Mean Corpuscular Volume 88.5 fL (83.0-100.0); Mean Platelet Volume 8.9 fL (9.4-12.4); Monocytes # 0.5 K/mcL (0.0-1.3); Monocytes % 6.4 %; Neutrophils # 5.4 K/mcL (1.6-8.9); Platelet Count 451 K/mcL (140-400); Red Blood Count 4.34 M/mcL (3.82-4.97); Red Cell Distribution Width 15.2 % (11.5-14.5); Segmented Neutrophils % 63.2 %
[2016-06-18 07:33] LABS: Albumin 2.1 g/dL (3.5-5.0); Albumin/Globulin Ratio 0.6 (1.1-2.2); Bilirubin,Total 0.6 mg/dL (0.2-1.2); Calcium 8.1 mg/dL (8.6-10.8); Globulin 3.5 g/dL (2.4-3.5); Magnesium 1.3 mg/dL (1.6-2.6); Total Protein 5.6 g/dL (6.0-8.3)
[2016-06-18 08:04] LABS: Potassium 3.2 mEq/L (3.5-4.5)
[2016-06-18] MEDS ORDERED: NON-FORMULARY MEDICATION 1 EACH EACH (Insulin Detemir 40 UNIT) SQ SCH (09:00)
[2016-06-18] MEDS: Gabapentin 400 MG CAPSULE PO SCH ×3 (09:45→21:24)
[2016-06-18] MEDS: Furosemide 40 MG/4 ML VIAL IVP SCH ×2 (09:46→21:23)
[2016-06-18] MEDS: Insulin DETEMIR 100 UNIT/ML X5UNITS SQ SCH ×2 (09:47→21:32)
--- NOTE | 2016-06-18 10:43 | Internal Med Progress Note ---
Date of Encounter: 06/18/16 Time of Encounter: 10:00 - Assessment and plan (1) Congestive heart failure Current Visit: Yes Status: Acute Assessment and plan: Patient who presented with SOB, orthopnea CXR with bilat pleural effusion/pulmonary edema BNP 3377, Continue diuresis Fluid restriction Strict i/O Follow ECHO Daily weight checks Troponin negative X2 EKG is non-ischemic Qualifiers: Congestive heart failure type: diastolic Congestive heart failure chronicity: acute on chronic Qualified Code(s): I50.33 - Acute on chronic diastolic (congestive) heart failure (2) Noncompliance Current Visit: Yes Status: Chronic (3) DM type 2 with diabetic peripheral neuropathy Current Visit: Yes Status: Chronic Assessment and plan: Continue current regimen of insulin Will titrate with FS ADA diet (4) PVD (peripheral vascular disease) Current Visit: Yes Status: Chronic Assessment and plan: Chronic, stable (5) Tobacco abuse Current Visit: Yes Status: Chronic Assessment and plan: Refused NRT Counselled for 3 minutes on cessation - Subjective Interval history: 46 Y/O F with PMH of DM, PAD, HTN, HLD, Tobacco abuse, CVA, CMP, CAD, Anxiety Admitted to observation unit for management of acute on chronic CHF exacerbation she is seen at bedside with her sister She reports her breathing has improved - Constitutional Vitals: Temp Pulse Resp BP Pulse Ox 97.4 F L 71 20 125/66 96 06/18/16 07:34 06/18/16 07:34 06/18/16 07:34 06/18/16 07:34 06/18/16 07:34 General appearance: Present: cachectic, A&O X 3, no acute distress, answers questions appropriately - Head Head exam: Present: atraumatic, normocephalic - Eye Eye exam: Present: PERRL, conjuntiva pink, sclera anicteric Pupils: Present: PERRL - Neck Neck exam general surgery: Present: supple, trachea midline. Absent: lymphadenopathy - Respiratory Respiratory exam: Present: decreased breath sounds (Decreased breath sounds at the lung bases), CTAB. Absent: accessory muscle use, rales, rhonchi, wheezes - Cardiovascular Cardiovascular exam: Present: RRR, +S1, +S2. Absent: diastolic murmur, gallop, rubs, systolic murmur - GI/Abdominal GI/Abdominal exam: Present: normal bowel sounds, soft, no peritoneal signs. Absent: distended, tenderness - Extremities Exam Extremities exam: Present: warm, radial pulses palpable and symetrical. Absent : calf tenderness, cyanotic Additional comments: 2+ piting pedal edema bilaterally Diminished dorsalis pedis bilaterally - Neurological Exam Neurological exam: Present: alert, CN II-XII intact, oriented X3, no focal deficits. Absent: pronater drift, facial droop, speech deficit - Skin Skin exam: Present: dry, intact Internal Medicine: Result - Labs CBC & Chem 7: 06/18/16 06:59 06/18/16 06:59 Labs: Short CBC 06/18/16 Range/Units 06:59 WBC 8.5 (4.3-11.1) K/mcL Hgb 11.7 (11.5-15.4) g/dL Hct 38.4 (35.3-44.9) % Plt Count 451 H (140-400) K/mcL Neutrophils # 5.4 (1.6-8.9) K/mcL BMP 06/18/16 06:59 Sodium 141 D Potassium 3.2 L D Chloride 100 Carbon Dioxide 33 H BUN 16 Creatinine 1.17 H Glucose 108 H Calcium 8.1 L Cardiac Enzymes 06/18/16 Range/Units 06:59 Troponin I 0.02 (0-0.03) ng/mL Liver Function 06/18/16 Range/Units 06:59 Total Bilirubin 0.6 (0.2-1.2) mg/dL AST 13 (5-34) Units/L ALT 7 (0-55) Units/L Alkaline Phosphatase 80 (38-126) Units/L Albumin 2.1 L (3.5-5.0) g/dL - ABG Interpretation ABG results: PT/INR, D-dimer PT 13.2 Seconds (9.4-12.1) H 06/17/16 22:53 Consult Discharge Plan - Plan Referrals: NO,PCP [Primary Care Provider] -
--- NOTE | 2016-06-18 15:10 | Electrocardiograph Report ---
[address] [address] Test Date: 2016-06-17 Pat Name: Antionette Mckeon Department: 102 Room: 3B39 Gender: F Access Coordinator: : 1970 Requested By: Nick Bailey Order Number: [id number] Reading MD: Lilian Welsh Measurements Intervals Diamond Rate: 86 P: 64 WI: 170 QRS: 86 QRSD: 106 T: 16 QT: 382 QTc: 425 Interpretive Statements SINUS RHYTHM POSSIBLE LEFT ATRIAL ENLARGEMENT [-0.1mV P WAVE IN V1/V2] NONSPECIFIC ST \T\ T-WAVE ABNORMALITY Electronically Signed On 06-18-2016 15:08:18 EDT by Lilian Welsh
--- NOTE | 2016-06-18 16:42 | Electrocardiograph Report ---
[address] [place], [place] [address] Test Date: 2016-06-18 Pat Name: Antionette Mckeon Department: 113 Room: 3B39 Gender: F Supervisor Costuming: : 1970 Requested By: Jose Ge Order Number: [id number] Reading MD: Lilian Welsh Measurements Intervals Henriette Rate: 68 P: 44 NC: 152 QRS: 35 QRSD: 110 T: -41 QT: 428 QTc: 445 Interpretive Statements SINUS RHYTHM POSSIBLE LEFT ATRIAL ENLARGEMENT NONSPECIFIC T-WAVE ABNORMALITY Electronically Signed On 06-18-2016 16:41:12 EDT by Lilian Welsh
[2016-06-19 05:05] LABS: Basophils # 0.1 K/mcL (0.0-0.2); Basophils % 1.3 %; Eosinophils # 0.6 K/mcL (0.0-0.6); Eosinophils % 6.1 %; Hematocrit 37.8 % (35.3-44.9); Hemoglobin 11.9 g/dL (11.5-15.4); Immature Granulocytes % 0.3 % (0-4); Lymphocytes # 2.9 K/mcL (0.6-4.6); Lymphocytes % 28.9 %; Mean Corpuscular HGB Conc 31.5 g/dL (31.6-35.5); Mean Corpuscular Hemoglobin 27.7 pg (28.0-33.3); Mean Corpuscular Volume 88.1 fL (83.0-100.0); Mean Platelet Volume 9.6 fL (9.4-12.4); Monocytes # 0.9 K/mcL (0.0-1.3); Monocytes % 8.4 %; Neutrophils # 5.6 K/mcL (1.6-8.9); Platelet Count 479 K/mcL (140-400); Red Blood Count 4.29 M/mcL (3.82-4.97); Red Cell Distribution Width 15.3 % (11.5-14.5)
[2016-06-19 05:18] LABS: Calcium 7.8 mg/dL (8.6-10.8); Potassium 4.1 mEq/L (3.5-4.5)
[2016-06-19] MEDS ORDERED: *HR* Dextrose 50 % in Water (Syg) 50 ML SYRINGE ONE (05:30)
[2016-06-19 06:17] LABS: VBG HCO3 38.3 mEq/L (21-27); VBG PH 7.42 pH Units (7.32-7.42)
[2016-06-19] MEDS: *HR* Heparin 5,000 UNIT/ML VIAL SQ SCH ×3 (06:46→22:02)
[2016-06-19] MEDS: Insulin DETEMIR 100 UNIT/ML X5UNITS SQ SCH ×3 (08:29→22:12)
[2016-06-19] MEDS: Gabapentin 400 MG CAPSULE PO SCH ×3 (08:29→22:02)
[2016-06-19] MEDS: Furosemide 40 MG/4 ML VIAL IVP SCH ×2 (08:29→22:02)
[2016-06-19] MEDS: Insulin LISPRO 300 UNITS/3 ML VIAL SQ SCH ×3 (08:30→17:07)
[2016-06-19] MEDS ORDERED: Furosemide 20 MG/2 ML VIAL IVP ONE ×2 (08:50→16:29)
--- NOTE | 2016-06-19 08:55 | Internal Med Progress Note ---
Date of Encounter: 06/19/16 Time of Encounter: 08:51 - Assessment and plan (1) Hypothermia Current Visit: Yes Status: Acute Assessment and plan: Improving Continue Jyalyn mello Etiology is unknown at this time, likely due to infection but does not meet criteria for sepsis Qualifiers: Encounter type: initial encounter Qualified Code(s): T68.XXXA - Hypothermia , initial encounter (2) HCAP (healthcare-associated pneumonia) Current Visit: Yes Status: Acute Assessment and plan: Patient with multiple admissions Increasing O2 requirements this morning, necessitated Chest CT with findings of anasarca, bilateral LL pneumonia and bilateral pleural effusions Send blood cultures Send respiratory panel PCR as patient is not making sputum Start on Vancomycin and Cefepime Transfer to Consult thoracic surgery for thoracentensis-diagnostic and therapeutic (3) Congestive heart failure Current Visit: Yes Status: Acute Assessment and plan: Patient who presented with SOB, orthopnea CXR with bilat pleural effusion/pulmonary edema BNP 3377, ECHO with LVEF 40%, global reduction in LV systolic function with regilanl variations that are unchanged from prior. Mild LVDD, mild to modereate MR. MIld TR, Pulm HTN, Large pleural effusion, trivial pericardial effusion, multiple wall motion abnormalities Continue diuresis, gave additional lasix IV 20mg today Will increase diuresis based on tolerability of blood pressure Superimposed bilateral pneumonia Fluid restriction Strict i/O Daily weight checks Troponin negative X2 EKG is non-ischemic Qualifiers: Congestive heart failure type: diastolic Congestive heart failure chronicity: acute on chronic Qualified Code(s): I50.33 - Acute on chronic diastolic (congestive) heart failure (4) Anasarca Current Visit: Yes Status: Acute Assessment and plan: As above (5) Noncompliance Current Visit: Yes Status: Chronic (6) DM type 2 with diabetic peripheral neuropathy Current Visit: Yes Status: Chronic Assessment and plan: Decrease levemir due to hypoglycemia this a.m Continue to monitor FS ADA diet (7) PVD (peripheral vascular disease) Current Visit: Yes Status: Chronic Assessment and plan: Chronic, stable (8) Tobacco abuse Current Visit: Yes Status: Chronic Assessment and plan: Refused NRT Counselled for 3 minutes on cessation - Subjective Interval history: 46 Y/O F with PMH of DM, PAD, HTN, HLD, Tobacco abuse, CVA, CMP, CAD, Anxiety Admitted to observation unit for management of acute on chronic CHF exacerbation Patient seen at bedside with RN She had episodes of hypoglycemia during the night, requiring IV infusion of D5. Her FS at this time is 251 RN reports increasing lethargy Patient is seen asleep but arousable and able to participate in conversation She denies CP, worsening SOB or any new symptoms She does feel that her edema is not improving Chart review reveals negative fluid balanc e of -2L but weight gain BP is borderline and HR is WNL Will decrease levemir to 25 units bid starting from night dose, will repeat CXR . Hold lopressor for now Obtain UA and Utox Chest CT reveals bilateral pneumonia with air bronchograms and bilateral pleural effusions, left side loculated, anasarca. - Constitutional Vitals: Temp Pulse Resp BP Pulse Ox 98.7 F 69 18 115/57 90 L 06/19/16 03:00 06/19/16 07:43 06/19/16 07:43 06/19/16 07:43 06/19/16 07:43 General appearance: Present: cachectic, A&O X 3, no acute distress, answers questions appropriately - Head Head exam: Present: atraumatic, normocephalic - Eye Eye exam: Present: PERRL, conjuntiva pink, sclera anicteric Pupils: Present: PERRL - Neck Neck exam general surgery: Present: supple, trachea midline. Absent: lymphadenopathy - Respiratory Additional comments: RR wnl Saturating 94% on 5L by NC Able to complete sentences, decreased breath sounds on the R lung base, no crackles, Left lung space aeration better than yesterday NO rales, no wheezing at this time - Cardiovascular Cardiovascular exam: Present: RRR, +S1, +S2. Absent: diastolic murmur, gallop, rubs, systolic murmur - GI/Abdominal GI/Abdominal exam: Present: normal bowel sounds, soft, no peritoneal signs. Absent: distended, tenderness - Extremities Exam Additional comments: [place] hard pedal edema biaterally, patient is unable to feel any sensation in her legs, bilateral pedal edema. 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 Absent: pronater drift, facial droop, speech deficit - Skin Skin exam: Present: dry, intact Internal Medicine: Result - Labs CBC & Chem 7: 06/19/16 04:10 06/19/16 04:10 Labs: Short CBC 06/19/16 Range/Units 04:10 WBC 10.1 (4.3-11.1) K/mcL Hgb 11.9 (11.5-15.4) g/dL Hct 37.8 (35.3-44.9) % Plt Count 479 H (140-400) K/mcL Neutrophils # 5.6 (1.6-8.9) K/mcL BMP 06/19/16 04:10 Sodium 140 Potassium 4.1 Chloride 102 Carbon Dioxide 28 BUN 25 H Creatinine 1.18 H Glucose 34 L* Calcium 7.8 L Cardiac Enzymes 06/18/16 06/19/16 Range/Units 17:30 06:08 Troponin I 0.02 0.02 (0-0.03) ng/mL - ABG Interpretation ABG results: PT/INR, D-dimer PT 13.2 Seconds (9.4-12.1) H 06/17/16 22:53 Consult Discharge Plan - Plan Referrals: NO,PCP [Primary Care Provider] -
--- NOTE | 2016-06-19 11:15 | ECHO - Doppler Report ---
Echocardiogram Name: Antionette Mckeon Date of Study: 06/18/2016 Date: 1970 Ht: 68.0 in Medical Record#: [id number] Age: 46 Wt: 173.0 lb Gender: Female BSA: 1.92 Order #: [id number] Location: [facility] Room #: 3B39 Reading Physician: Shavon Howe DO Radar Systems Engineer: Fidelia Velasquez Ordering Physician: Jose Ge MD Primary Physician: None Indications: Congestive heart failure Impressions: LVEF 40%. Global reduction in LV systolic function with regional variations that were seen on prior echo studies (04/04/2015). Left ventricle size is mildly dilated. There is evidence of mild diastolic dysfunction of the left ventricle. Normal right ventricular size and function. Mild-moderate mitral regurgitation. Mild tricuspid regurgitation. Mild pulmonic regurgitation. No pulmonary hypertension. Trivial pericardial effusion. There is a large pleural effusion. Left Ventricular Wall Motion: Rest Echo Findings The apex, apical inferior, mid inferior, basal inferior, apical anterior, mid anterior, basal anterior, apical septal, mid inferior septal, basal inferior septal, apical lateral, mid anterior lateral, basal anterior lateral, mid anterior septal, mid inferior lateral, basal anterior septal and basal inferior lateral martinez were hypokinetic. Findings: Study Quality * Technically adequate exam. ECG Findings * Normal sinus rhythm. Aortic Valve * Aortic valve not well visualized. * No aortic stenosis. * Trace aortic regurgitation. Mitral Valve * Normal mitral valve structure. * Mild mitral annular calcification * No mitral stenosis. * Mild-moderate mitral regurgitation. Left Ventricle * Mildly dilated left ventricle. * Mild left ventricular diastolic dysfunction. * LVEF 40%. Tricuspid Valve * Tricuspid valve not well visualized. * Mild tricuspid regurgitation. * Estimated RA pressure is 3 mmHg. * Estimated RVSP is 27 mmHg. * No pulmonary hypertension. Pulmonic Valve * Pulmonic valve is not well visualized. * No pulmonic stenosis. * Mild pulmonic regurgitation. Pulmonary Artery * Pulmonary artery not well visualized. Right Ventricle * Normal right ventricular structure and function. Left Atrium * Mildly dilated left atrium. Right Atrium * Normal right atrial size. Aorta * Normally sized aortic root. Pericardium * There is a trivial pericardial effusion present. Pleural Effusion * Large pleural effusion. Interatrial Septum * No evidence of PFO by color Doppler. IVC * The IVC is not dilated. History Hypertension Diabetes Hypercholesteremia History of Smoking Years 40 Packs 0.5 Family History of CAD History of CAD/PTCA Myocardial Infarction Congestive Heart Failure 04/04/2015 a Previous Echo was performed. Measurements: BP: 115/ 70 2D Normal Values RVIDd: 3.10 cm <2.7 cm IVSd: .90 cm 0.6 - 1.0 cm LVIDd: 5.50 cm 3.7 - 5.6 cm LVPWd: 1.00 cm 0.6 - 1.1 cm LVIDs: 4.60 cm 1.5 - 3.6 cm AO: 2.70 cm < 4.0 cm LA: 3.40 cm 2.0 - 4.0cm %FS: 19.30 cm >25 % LVOT Diam: 2.10 cm LA volume: 69 Mitral Valve Peak E:1.05 m/sec Peak A:1.04 m/sec E/A Ratio:1 Peak E' Lat Onofre:11.4 cm/s Peak E' Med Onofre:7.8 cm/s E/E' Lat Ratio:9.1 E/E' Med Ratio:13.3 Tricuspid Valve TV Regurg Peak Grad: 24.00mmHg TV Regurg Peak Onofre: 2.46m/sec Updated by Shavon Howe on 06/19/2016 11:10:40 AM electronically signed on 06/19/2016 11:12:18 AM with status of Final Wall Motion Morrow: 1=Normal, 2=Hypokinesis, 3=Akinesis, 4=Dyskinesis, 5=Aneurysmal, 6=Hyperkinetic, X=Not Visualized (Blank)=Missing
[2016-06-19] MEDS ORDERED: Vancomycin (wt based) 1,000 MG VIAL IVPB SCH (12:00)
[2016-06-19] MEDS: Vancomycin 1,250 MG in D5% in Water 250 ML IVPB SCH (13:13)
--- NOTE | 2016-06-19 14:28 | Cardiothoracic Consult Note ---
Date of Encounter: 06/19/16 Time of Encounter: 14:24 Assessment and Plan (1) CVA (cerebral vascular accident) Current Visit: No Status: Chronic The assessment and plan as outlined above was discussed with the patient and/or family members who expressed understanding and agreement. All questions were answered. The patient has total body anasarca and congestive heart failure. This should respond to diuresis. She does have an extremely small, loculated left effusion and possibly early pneumonia on the left side. She is afebrile and has a normal white blood cell count. It would be impossible to place a blind chest tube into this area. The patient does not require decortication. A chest tube should be placed in this area in interventional radiology. This is most likely due to congestive heart failure. I do not feel that the patient has empyema at this point. Qualifiers: CVA mechanism: unspecified Qualified Code(s): I63.9 - Cerebral infarction, unspecified - History of Present Illness History of present illness: Ms. Mckeon is a 46 year old female History of present illness. Patient is a 46-year-old female with a history of numerous myocardial infarctions and numerous strokes. She has a chronic problem with congestive heart failure. She presented with worsening shortness of breath and total body anasarca. Echocardiogram is pending. Chest x-ray revealed small bilateral effusions. CT scan of the chest revealed some infiltrate in the left lung. There are posterior effusions bilaterally which are small and should respond to aggressive diuresis. There is a small loculated left effusion. The patient has been afebrile and her white blood cell count is 8-10,000. Past medical history is notable for diabetes. Numerous strokes and myocardial infarctions. Social history. The patient lives with her sister. She continues to smoke 1/2-1 pack of cigarettes per day AGAINST MEDICAL ADVICE. Does not drink. Medications include insulin for diabetes. Family history is positive for cancer. Review of systems is negative, but the patient has extremely poor memory. Past Med Surg Social Fam HX - Past Medical History Medical history: cardiomyopathy, cirrhosis, COPD, coronary artery disease, CVA, diabetes, peripheral artery disease, renal disease, TIA Psychiatric history: anxiety - Past Surgical History Surgical History: appendectomy, cholecystectomy, hysterectomy, orthopedic, other , other - Social History Smoking Status: Current every day smoker Packs per day: 0.5 Smokeless Tobacco Status: No Alcohol use: none Drug use: none - Family History Father History Unknown: Yes Adopted[place] Family Member Ethnicity: Non- Living Status: Age at : 58 Cause of : COPD Hx Family Cardiac Disorders: No Hx Family Respiratory Disorders: Yes Hx Family Cancer: Yes Hx Family Endocrine Disorder: Yes Hx Family Neurologic Disorders: No Medications and Allergies Albuterol Sulfate [Proair Hfa] 2 puff IH Q4H PRN 06/18/16 [History] Alprazolam [Xanax 0.5 MG Tablet] 0.5 mg PO HS 06/18/16 [History] Aspirin [Lo-Dose Aspirin EC] 81 mg PO DAILY 06/18/16 [History] Atorvastatin [Lipitor] 40 mg PO HS 06/18/16 [History] Clopidogrel [Plavix] 75 mg PO DAILY 06/18/16 [History] Docusate [Colace] 100 mg PO BID 06/18/16 [History] Fenofibrate [Lofibra] 160 mg PO DAILY 06/18/16 [History] Furosemide [Lasix] 40 mg PO DAILY 06/18/16 [History] Gabapentin [Neurontin] 400 mg PO TID 06/18/16 [History] Insulin ASPART [NovoLOG] 2 - 6 unit SQ TIDWM 06/18/16 [History] Insulin DETEMIR [Levemir] 6 unit SQ QAM 06/18/16 [History] Insulin DETEMIR [Levemir] 40 unit SQ HS 06/18/16 [History] Isosorbide MONOnitrate (24 HR) [Imdur] 60 mg PO DAILY 06/18/16 [History] Lisinopril 2.5 mg PO DAILY 06/18/16 [History] Metoprolol XL (24 HR) Succ [Toprol XL] 50 mg PO DAILY 06/18/16 [History] Potassium Chloride [Klor-Con Sprinkle] 10 meq PO BID 06/18/16 [History] Ranolazine [Ranexa] 500 mg PO BID 06/18/16 [History] Allergies ciprofloxacin [From Cipro] Allergy (Verified 05/16/16 22:20) Hives codeine Allergy (Verified 06/18/16 10:32) Hives insulin glargine [From Lantus] Allergy (Verified 06/18/16 10:32) Hives All Systems Review: A 10-system review of systems was performed and is negative for pertinent findings except as documented above in the HPI. Physical Examination Vital Signs, Last 4 Hours Temp Pulse Resp BP Pulse Ox 06/19/16 12:30 97.4 F L 65 18 146/79 91 L 06/19/16 11:34 95.2 F L 64 17 129/69 95 06/19/16 10:44 95.4 F L 62 18 130/68 94 L Pupils are equal, round and reactive to light and accommodation. She is edentulous. Neck is supple. Trachea in the midline. No carotid bruits. Lungs are clear to percussion and auscultation. Heart is in a regular rate and rhythm. Abdomen is distended and appears to have ascites. No tenderness, rebound or guarding. She is status post appendectomy and cholecystectomy. Extremities with 2+ pitting edema. 1+ pulses. Cranial nerves intact. The patient has weak lower extremities and walks with a walker. Her memory is extremely poor. Results 06/19/16 04:10 06/19/16 04:10 Lab Results, Last 24 hours 06/18/16 06/19/16 06/19/16 17:30 04:10 04:10 WBC 10.1 Hgb 11.9 Hct 37.8 Plt Count 479 H Sodium 140 Potassium 4.1 Chloride 102 Carbon Dioxide 28 BUN 25 H Creatinine 1.18 H Glucose 34 L* Calcium 7.8 L Troponin I 0.02 06/19/16 06:08 WBC Hgb Hct Plt Count Sodium Potassium Chloride Carbon Dioxide BUN Creatinine Glucose Calcium Troponin I 0.02 Consult Discharge Plan - Plan Referrals: NO,PCP [Primary Care Provider] -
[2016-06-19] MEDS: Cefepime HCl 2,000 MG in D5% in Water (Mini-Bag+) 100 ML IVPB SCH (17:00)
[2016-06-19 23:47] LABS: Amphetamine Screen,Urine Negative ng/mL (Cutoff=1000); Barbiturate Screen,Urine Negative ng/mL (Cutoff=200); Benzodiazepines Screen,Urine Negative ng/mL (Cutoff=200); Bilirubin,Urine Negative (Negative); Blood,Urine Negative (Negative); Cannabinoid Screen,Urine Negative ng/mL (Cutoff = 50); Clarity,Urine Cloudy (Clear); Cocaine Screen,Urine Negative ng/mL (Cutoff= 300); Color,Urine Yellow (Yellow); Glucose,Urine (UA) 100 mg/dL (Normal); Ketones,Urine Negative (Negative); Leukocyte Esterase,Urine Trace (Negative); Nitrite,Urine Negative (Negative); Opiate Screen,Urine Negative ng/mL (Cutoff=300); Phencyclidine Screen,Urine Negative ng/mL (Cutoff=25); Protein,Urine 100 mg/dL (Neg-Trace); Specific Gravity,Urine 1.014 (1.010-1.025); Urobilinogen,Urine Normal (Normal)
[2016-06-19 23:49] LABS: Bacteria,Urine None Seen per hpf (None-Few); Hyaline Casts,Urine None Seen per lpf (None-Few); Squamous Epithelial Cell,Urine Many per lpf (None-Few); WBC,Urine 15-30 per hpf (0-3)
[2016-06-20] MEDS: Vancomycin 1,250 MG in D5% in Water 250 ML IVPB SCH ×2 (00:14→11:30)
[2016-06-20] MEDS: Cefepime HCl 2,000 MG in D5% in Water (Mini-Bag+) 100 ML IVPB SCH ×2 (05:50→16:54)
[2016-06-20] MEDS: *HR* Heparin 5,000 UNIT/ML VIAL SQ SCH ×3 (05:51→21:27)
[2016-06-20 08:12] LABS: Basophils # 0.1 K/mcL (0.0-0.2); Hemoglobin 10.7 g/dL (11.5-15.4); Mean Corpuscular HGB Conc 31.5 g/dL (31.6-35.5); Mean Corpuscular Hemoglobin 27.3 pg (28.0-33.3); Mean Corpuscular Volume 86.7 fL (83.0-100.0); Mean Platelet Volume 9.6 fL (9.4-12.4); Platelet Count 424 K/mcL (140-400); Red Blood Count 3.92 M/mcL (3.82-4.97); Red Cell Distribution Width 15.3 % (11.5-14.5)
[2016-06-20 08:29] LABS: Calcium 7.5 mg/dL (8.6-10.8); Potassium 3.9 mEq/L (3.5-4.5)
[2016-06-20] MEDS: Insulin LISPRO 300 UNITS/3 ML VIAL SQ SCH ×3 (08:31→16:48)
[2016-06-20] MEDS: Insulin DETEMIR 100 UNIT/ML X5UNITS SQ SCH ×2 (08:31→21:27)
[2016-06-20] MEDS: Furosemide 40 MG/4 ML VIAL IVP SCH ×2 (08:31→21:27)
[2016-06-20] MEDS: Gabapentin 400 MG CAPSULE PO SCH ×3 (08:32→21:28)
[2016-06-20] MEDS ORDERED: Aminoglycoside Consult 1 EACH MC ONE (08:52)
[2016-06-20 09:02] LABS: Eosinophils # 0.5 K/mcL (0.0-0.6); Lymphocytes # 2.4 K/mcL (0.6-4.6); Monocytes # 0.4 K/mcL (0.0-1.3); Neutrophils # 6.5 K/mcL (1.6-8.9)
--- NOTE | 2016-06-20 09:13 | Cardiothoracic Progress Note ---
Date of Encounter: 06/20/16 Time of Encounter: 09:11 - Assessment and plan (1) CVA (cerebral vascular accident) Current Visit: No Status: Chronic The patient remains afebrile and her white blood cell count is 9800. She needs continued diuresis. Qualifiers: CVA mechanism: unspecified Qualified Code(s): I63.9 - Cerebral infarction, unspecified - Subjective Interval history: The patient complains of generalized edema and swelling. She is on room air and her O2 saturations are better than 90. Vital Signs, Last 4 Hours Temp Pulse Resp BP Pulse Ox 06/20/16 07:32 97.7 F 78 18 139/64 94 L Oxgyen Flow Rate Oxygen Flow Rate (LPM) 2 Clinical Data, last 8 Hours Output, Urine Amount 1,500 Weight 06/18/16 06/19/16 06/20/16 23:59 23:59 23:59 Weight 79 kg Lungs are clear to percussion and auscultation. Heart is in a normal sinus rhythm. - Labs 06/20/16 06:55 06/20/16 06:55 Lab Results, Last 24 hours 06/20/16 06/20/16 06:55 06:55 WBC 9.8 Hgb 10.7 L Hct 34.0 L Plt Count 424 H Sodium 142 Potassium 3.9 Chloride 102 Carbon Dioxide 31 H BUN 28 H Creatinine 1.19 H Glucose 77 Calcium 7.5 L Consult Discharge Plan - Plan Referrals: NO,PCP [Primary Care Provider] -
--- NOTE | 2016-06-20 09:53 | Internal Med Progress Note ---
Date of Encounter: 06/20/16 Time of Encounter: 09:51 - Assessment and plan (1) Hypothermia Current Visit: Yes Status: Acute Assessment and plan: Improved Etiology is unknown at this time, likely due to infection but does not meet criteria for sepsis Qualifiers: Encounter type: initial encounter Qualified Code(s): T68.XXXA - Hypothermia , initial encounter (2) HCAP (healthcare-associated pneumonia) Current Visit: Yes Status: Acute Assessment and plan: Patient with multiple admissions Chest CT with findings of anasarca, bilateral LL pneumonia and bilateral pleural effusions Follow blood cultures Follow respiratory panel PCR as patient is not making sputum Continue on Vancomycin and Cefepime Pharamacy to dose, patient is not coughing Thoracic surgery input appreciated IR will be consulted for diagnostic thoracentensisNPO from [place] for same (3) Congestive heart failure Current Visit: Yes Status: Acute Assessment and plan: Patient who presented with SOB, orthopnea CXR with bilat pleural effusion/pulmonary edema BNP 3377, ECHO with LVEF 40%, global reduction in LV systolic function with regilanl variations that are unchanged from prior. Mild LVDD, mild to modereate MR. MIld TR, Pulm HTN, Large pleural effusion, trivial pericardial effusion, multiple wall motion abnormalities Continue diuresis, gave additional lasix IV 20mg today Will increase diuresis based on tolerability of blood pressure Superimposed bilateral pneumonia Fluid restriction Strict i/O Daily weight checks Troponin negative X2 EKG is non-ischemic Qualifiers: Congestive heart failure type: diastolic Congestive heart failure chronicity: acute on chronic Qualified Code(s): I50.33 - Acute on chronic diastolic (congestive) heart failure (4) Anasarca Current Visit: Yes Status: Acute Assessment and plan: As above (5) Noncompliance Current Visit: Yes Status: Chronic (6) DM type 2 with diabetic peripheral neuropathy Current Visit: Yes Status: Chronic Assessment and plan: Continue decreased dose of levemir due to hypoglycemia 06/19 Continue to monitor FS ADA diet (7) PVD (peripheral vascular disease) Current Visit: Yes Status: Chronic Assessment and plan: Chronic, stable (8) Tobacco abuse Current Visit: Yes Status: Chronic Assessment and plan: Refused NRT Counselled for 3 minutes on cessation - Subjective Interval history: 46 Y/O F with PMH of DM, PAD, HTN, HLD, Tobacco abuse, CVA, CMP, CAD, Anxiety Admitted for management of acute on chronic CHF exacerbation, HCAP, Bilateral pleural effusions Seen at bedside, reports improvement, wants to ambulate - Constitutional Vitals: Temp Pulse Resp BP Pulse Ox 97.7 F 78 18 139/64 94 L 06/20/16 07:32 06/20/16 07:32 06/20/16 07:32 06/20/16 07:32 06/20/16 07:32 General appearance: Present: A&O X 3, pleasant, no acute distress, answers questions appropriately - Head Head exam: Present: atraumatic, normocephalic - Eye Eye exam: Present: PERRL, conjuntiva pink, sclera anicteric Pupils: Present: PERRL - Neck Neck exam general surgery: Present: supple, trachea midline. Absent: lymphadenopathy - Respiratory Additional comments: Improved air entry on left lung base, but still diminshed, right lung is clear No wheezing, no crackles, - Cardiovascular Cardiovascular exam: Present: RRR, +S1, +S2. Absent: diastolic murmur, gallop, rubs, systolic murmur - GI/Abdominal GI/Abdominal exam: Present: normal bowel sounds, soft, no peritoneal signs. Absent: distended, tenderness - Extremities Exam Extremities exam: Present: pedal edema, warm, radial pulses palpable and symetrical. Absent: calf tenderness, cyanotic Additional comments: s/p right toes amputation - Neurological Exam Neurological exam: Present: alert, CN II-XII intact, oriented X3, no focal deficits. Absent: pronater drift, facial droop, speech deficit - Skin Skin exam: Present: dry, intact Internal Medicine: Result - Labs CBC & Chem 7: 06/20/16 06:55 06/20/16 06:55 Labs: Short CBC 06/20/16 Range/Units 06:55 WBC 9.8 (4.3-11.1) K/mcL Hgb 10.7 L (11.5-15.4) g/dL Hct 34.0 L (35.3-44.9) % Plt Count 424 H (140-400) K/mcL Neutrophils # 6.5 (1.6-8.9) K/mcL BMP 06/20/16 06:55 Sodium 142 Potassium 3.9 Chloride 102 Carbon Dioxide 31 H BUN 28 H Creatinine 1.19 H Glucose 77 Calcium 7.5 L Urine 03/18/17 Range/Units 23:20 Urine Color Yellow (Yellow) Urine Clarity Cloudy A (Clear) Urine pH 6.0 (5.0-8.0) pH Units Ur Specific [place] 1.014 (1.010-1.025) Urine Protein 100 H (Neg-Trace) mg/dL Urine Glucose (UA) 100 H (Normal) mg/dL - ABG Interpretation ABG results: PT/INR, D-dimer PT 13.2 Seconds (9.4-12.1) H 06/17/16 22:53 - Impressions Impressions Chest X-Ray 06/19/16 08:50 IMPRESSION: 1. Stable findings suggesting acute congestive heart failure with mild effusions and lung base atelectasis associated with the effusions. 2. Progressive left mid to lower lung consolidative changes which may represent superimposed pneumonia or possible mucous plugging with progressive atelectasis. D/ / 06/19/2016 09:18:45 Michael Chapin MD / dwight Interpreting Provider: Michael Chapin MD Chest CT 06/19/16 11:33 IMPRESSION: Bilateral pleural effusions and bilateral airspace disease, left greater than right, suspicious for pneumonia given the presence of air bronchograms. Superimposed pleural effusions and body wall anasarca suggesting concomitant fluid overload or mild edema D/ / Adeel Washington MD / Adeel Washington MD Interpreting Provider: Adeel Washington MD Consult Discharge Plan - Plan Referrals: NO,PCP [Primary Care Provider] -
[2016-06-20] MEDS: Acetaminophen 325 MG TABLET PO PRN (16:53)
[2016-06-21] MEDS: Vancomycin 1,250 MG in D5% in Water 250 ML IVPB SCH (00:17)
[2016-06-21] MEDS: Cefepime HCl 2,000 MG in D5% in Water (Mini-Bag+) 100 ML IVPB SCH ×2 (06:25→17:57)
[2016-06-21] MEDS: *HR* Heparin 5,000 UNIT/ML VIAL SQ SCH ×3 (06:25→22:06)
[2016-06-21] MEDS ORDERED: Furosemide 40 MG/4 ML VIAL IVP ONE (07:27)
[2016-06-21 08:16] LABS: Calcium 7.6 mg/dL (8.6-10.8)
--- NOTE | 2016-06-21 08:32 | Cardiothoracic Progress Note ---
Date of Encounter: 06/21/16 Time of Encounter: 08:30 - Assessment and plan (1) Pleural effusion Current Visit: Yes Status: Acute The patient has bilateral pleural effusions paced on her admission chest CT. The right sided pleural effusion is larger than the left sided one. The patient should undergo thoracentesis of the right pleural effusion. The assessment and plan as outlined above was discussed with the patient and/or family members who expressed understanding and agreement. All questions were answered. - Subjective Interval history: The patient is sitting comfortably in a chair. She has no respiratory complaints. Vital Signs, Last 4 Hours Temp Pulse Resp BP Pulse Ox 06/21/16 07:07 98.8 F 90 18 145/80 92 L Oxgyen Flow Rate Oxygen Flow Rate (LPM) 2 Clinical Data, last 8 Hours Output, Urine Amount 1,000 Output, Urine Amount 600 Weight 06/19/16 06/20/16 06/21/16 23:59 23:59 23:59 Weight 79 kg - Physical Examination General: Conversant, No Apparent Distress Neck: No JVD, Normal carotid pulses Cardiac: Reg Rate and Rhythm, Normal S1 and S2, No Murmur Lungs: Normal Breath Sounds (Left lung muñoz.), Decreased breath sounds (Right base.) Neuro: Alert and responsive, No focal deficits noted Vascular: Normal capillary refill Extremities: No Clubbing, No Cyanosis, No Edema - Labs 06/20/16 06:55 06/21/16 07:52 Lab Results, Last 24 hours 06/20/16 06/21/16 06:55 07:52 WBC 9.8 Hgb 10.7 L Hct 34.0 L Plt Count 424 H Sodium 140 Potassium 4.0 Chloride 101 Carbon Dioxide 31 H BUN 33 H Creatinine 1.17 H Glucose 240 H Calcium 7.6 L - Imaging Chest Xray: image reviewed (Mild cardiomegaly, unchanged. Small bilateral pleural effusions.) Consult Discharge Plan - Plan Referrals: NO,PCP [Primary Care Provider] -
[2016-06-21] MEDS: Insulin LISPRO 300 UNITS/3 ML VIAL SQ SCH ×3 (09:45→15:52)
[2016-06-21] MEDS: Gabapentin 400 MG CAPSULE PO SCH ×3 (09:46→22:05)
[2016-06-21] MEDS: Furosemide 40 MG/4 ML VIAL IVP SCH ×2 (09:46→22:04)
[2016-06-21] MEDS: Insulin DETEMIR 100 UNIT/ML X5UNITS SQ SCH ×2 (09:46→22:05)
--- NOTE | 2016-06-21 10:57 | Internal Med Progress Note ---
Date of Encounter: 06/21/16 Time of Encounter: 10:57 - Assessment and plan (1) Hypothermia Current Visit: Yes Status: Acute Assessment and plan: Resolved Qualifiers: Encounter type: initial encounter Qualified Code(s): T68.XXXA - Hypothermia , initial encounter (2) HCAP (healthcare-associated pneumonia) Current Visit: Yes Status: Acute Assessment and plan: Patient with multiple admissions Chest CT with findings of anasarca, bilateral LL pneumonia and bilateral pleural effusions Prelim blood culture, no growth, homd Vancomycin, continue cefepime respiratory panel PCR ordered, not done, will order again as patient is not making sputum Thoracic surgery input appreciated IR will be consulted for diagnostic thoracentensis (3) Congestive heart failure Current Visit: Yes Status: Acute Assessment and plan: Patient who presented with SOB, orthopnea CXR with bilat pleural effusion/pulmonary edema BNP 3377, ECHO with LVEF 40%, global reduction in LV systolic function with regilanl variations that are unchanged from prior. Mild LVDD, mild to modereate MR. MIld TR, Pulm HTN, Large pleural effusion, trivial pericardial effusion, multiple wall motion abnormalities Continue diuresis, gave additional lasix IV 40mg today Will increase diuresis based on tolerability of blood pressure Superimposed bilateral pneumonia Fluid restriction Strict i/O Daily weight checks Troponin negative X2 EKG is non-ischemic Qualifiers: Congestive heart failure type: diastolic Congestive heart failure chronicity: acute on chronic Qualified Code(s): I50.33 - Acute on chronic diastolic (congestive) heart failure (4) Anasarca Current Visit: Yes Status: Acute Assessment and plan: As above (5) Noncompliance Current Visit: Yes Status: Chronic (6) DM type 2 with diabetic peripheral neuropathy Current Visit: Yes Status: Chronic Assessment and plan: Continue decreased dose of levemir due to hypoglycemia 06/19 Continue to monitor FS ADA diet (7) PVD (peripheral vascular disease) Current Visit: Yes Status: Chronic Assessment and plan: Chronic, stable (8) Tobacco abuse Current Visit: Yes Status: Chronic Assessment and plan: Requested NRT today Counselling for cessation done - Subjective Interval history: 46 Y/O F with PMH of DM, PAD, HTN, HLD, Tobacco abuse, CVA, CMP, CAD, Anxiety Admitted for management of acute on chronic CHF exacerbation, HCAP, Bilateral pleural effusions Seen sitting out of bed She reports improvement in edema , however, her LUE seems assymetrically enlarged compared to the right She is awaiting diagnostic thoracentesis She still denies cough , difficulty in breathing has improved with diuresis - Constitutional Vitals: Temp Pulse Resp BP Pulse Ox 98.8 F 80 18 145/80 92 L 06/21/16 07:07 06/21/16 08:00 06/21/16 07:07 06/21/16 07:07 06/21/16 07:07 General appearance: Present: A&O X 3, pleasant, no acute distress, answers questions appropriately - Head Head exam: Present: atraumatic, normocephalic - Eye Eye exam: Present: PERRL, conjuntiva pink, sclera anicteric Pupils: Present: PERRL - Neck Neck exam general surgery: Present: supple, trachea midline. Absent: lymphadenopathy - Respiratory Respiratory exam: Present: CTAB. Absent: accessory muscle use, rales, rhonchi, wheezes - Cardiovascular Cardiovascular exam: Present: RRR, +S1, +S2. Absent: diastolic murmur, gallop, rubs, systolic murmur - GI/Abdominal GI/Abdominal exam: Present: normal bowel sounds, soft, no peritoneal signs. Absent: distended, tenderness - Extremities Exam Extremities exam: Present: pedal edema (bilateral 2+ pedal edema, LUE edema, s/ p R toes amputation), warm, radial pulses palpable and symetrical. Absent: calf tenderness, cyanotic - Neurological Exam Neurological exam: Present: alert, CN II-XII intact, oriented X3, no focal deficits. Absent: pronater drift, facial droop, speech deficit - Skin Skin exam: Present: dry, intact Internal Medicine: Result - Labs CBC & Chem 7: 06/20/16 06:55 06/21/16 07:52 Labs: BMP 06/21/16 07:52 Sodium 140 Potassium 4.0 Chloride 101 Carbon Dioxide 31 H BUN 33 H Creatinine 1.17 H Glucose 240 H Calcium 7.6 L - ABG Interpretation ABG results: PT/INR, D-dimer PT 13.2 Seconds (9.4-12.1) H 06/17/16 22:53 - Impressions Impressions Chest X-Ray 06/21/16 00:01 IMPRESSION: Stable chest with cardiomegaly, vascular congestion and small pleural effusions compatible with mild pulmonary edema. D/ / Lam Monte MD / Lam Monte MD Interpreting Provider: Lam Monte MD Consult Discharge Plan - Plan Referrals: NO,PCP [Primary Care Provider] -
[2016-06-21] MEDS: Nicotine 7 MG PATCH.TD24 TD SCH (12:22)
--- NOTE | 2016-06-21 14:24 | IR Procedure Note ---
Date of procedure: 06/21/16 Consent Obtained: Written consent Timeout: Correct patient and procedure verified, Correct site verified, Time out performed, Skin prep completed Indications: left effusion Procedure Performed: left thoracentesis Site/Technique: 8F sheath Results/Findings: moderate effusion Estimated blood loss (cc): 0 Complications: None; Tolerated procedure well Post Procedure Treatment Plan: CXR
[2016-06-21] MEDS: Acetaminophen 325 MG TABLET PO PRN (15:50)
[2016-06-21] MEDS ORDERED: Ketorolac 15 MG/ML VIAL IVP ONE (20:43)
[2016-06-21] MEDS ORDERED: *HR* OxyCODONE Immed Rel 5 MG TABLET PO PRN (20:43)
[2016-06-22 06:09] LABS: BUN/Creatinine Ratio 36 (6-26); Blood Urea Nitrogen 39 mg/dL (7-20); Calcium 7.9 mg/dL (8.6-10.8); Carbon Dioxide 32 mEq/L (19-29); Chloride 102 mEq/L (98-109); Osmolality,Calculated 302 (280-300); Potassium 3.6 mEq/L (3.5-4.5); Sodium 143 mEq/L (136-145); eGFR For African Americans > 60 (> 60); eGFR For Non-African Americans 55 (> 60)
[2016-06-22] MEDS: Cefepime HCl 2,000 MG in D5% in Water (Mini-Bag+) 100 ML IVPB SCH ×2 (06:34→17:18)
[2016-06-22] MEDS: *HR* Heparin 5,000 UNIT/ML VIAL SQ SCH ×3 (06:35→21:40)
[2016-06-22 06:43] LABS: Glucose 32 mg/dL (70-99)
[2016-06-22] MEDS: *HR* Dextrose 50 % in Water (Syg) 50 ML SYRINGE IVP PRN ×2 (06:47→08:25)
[2016-06-22] MEDS: Insulin LISPRO 300 UNITS/3 ML VIAL SQ SCH ×3 (08:24→17:18)
[2016-06-22] MEDS: Nicotine 7 MG PATCH.TD24 TD SCH (08:25)
[2016-06-22] MEDS: Gabapentin 400 MG CAPSULE PO SCH ×3 (08:25→21:38)
[2016-06-22] MEDS: Insulin DETEMIR 100 UNIT/ML X5UNITS SQ SCH ×2 (08:27→21:38)
[2016-06-22] MEDS: Furosemide 40 MG/4 ML VIAL IVP SCH ×2 (08:27→21:39)
--- NOTE | 2016-06-22 08:58 | Cardiothoracic Progress Note ---
Date of Encounter: 06/22/16 Time of Encounter: 08:56 - Assessment and plan (1) Pleural effusion Current Visit: Yes Status: Acute The patient has bilateral pleural effusions paced on her admission chest CT. She underwent a left thoracentesis with removal of fluid and improved aeration of the left base. The postprocedure chest x-ray shows no significant right pleural effusion. Cardiothoracic surgery will sign off this case. Please reconsult necessary. The assessment and plan as outlined above was discussed with the patient and/or family members who expressed understanding and agreement. All questions were answered. - Subjective Interval history: The patient is sitting comfortably in a chair. She has no respiratory complaints. Vital Signs, Last 4 Hours Temp Pulse Resp BP Pulse Ox 06/22/16 08:30 74 93 L 06/22/16 08:05 93.3 F L 74 12 144/73 96 06/22/16 05:09 97.5 F L 96 26 163/83 90 L Oxgyen Flow Rate Oxygen Flow Rate (LPM) 2 Weight 06/20/16 06/21/16 06/22/16 23:59 23:59 23:59 Weight 75.6 kg - Physical Examination General: Conversant, No Apparent Distress Neck: No JVD, Normal carotid pulses Cardiac: Reg Rate and Rhythm, Normal S1 and S2, No Murmur Lungs: Normal Breath Sounds, No Wheeze, Rales, Rhonchi Neuro: Alert and responsive, No focal deficits noted Musculoskeletal: No Chest Wall Tenderness Extremities: No Clubbing, No Cyanosis, No Edema - Labs 06/20/16 06:55 06/22/16 05:25 Lab Results, Last 24 hours 06/22/16 05:25 Sodium 143 Potassium 3.6 Chloride 102 Carbon Dioxide 32 H BUN 39 H Creatinine 1.07 Glucose 32 L* Calcium 7.9 L - Imaging Chest Xray: image reviewed (No pneumothorax. Improved aeration and left base after left thoracentesis.) Consult Discharge Plan - Plan Referrals: NO,PCP [Primary Care Provider] -
--- NOTE | 2016-06-22 12:22 | Venous Imaging Report ---
UE Venous Duplex Patient Name:Antionette Mckeon Order Number:[id number] Procedure Date:06/21/2016 Date:1970Age:46 yrs Gender:Female Location:[facility] Room #: 2N12 Pleater Hand:Sammie Rao RDCS Referring MD:William Hopson MD distribution estimator:None Reading MD:Fritz Piper MD Primary Indications:R/O DVT Secondary Indications: Impressions: Acute deep venous thrombosis is present in the left distal brachial vein. Normal left upper superficial venous exam. Normal contralateral subclavian vein. Recommendations: Test completed on 06/21/2016 at 7:50:00 pm. Critical findings reported to Pt Bogdan MIKE in person at 7:52:00 pm on 06/21/2016 by Sammie Rao RDCS. Findings Venous Duplex Results: Right: Venous imaging of the upper extremity reveals full patency and normal vessel compressibility of the right subclavian. Doppler signals in the evaluated veins were normal. Left: Venous imaging of the upper extremity reveals full patency and normal vessel compressibility of the left jugular, left subclavian, left axillary, left cephalic, left basilic, left radial and left ulnar. Doppler signals in the evaluated veins were normal. There is an acute occlusive thrombus seen in the left distal brachial. It demonstrates an incompressible vein. Flow was absent and it did not augment. Prior Study: No prior study available for comparison. Upper Extremity Venous Duplex Side Vein Compress Spontaneous Flow Augment Left Jugular Normal Yes Phasic Yes Left Subclavian Normal Yes Phasic Yes Left Axillary Normal Yes Phasic Yes Left Brachial None no Absent no Left Cephalic Normal Yes Phasic Yes Left Basilic Normal Yes Phasic Yes Left Radial Normal Yes Phasic Yes Left Ulnar Normal Yes Phasic Yes Right Subclavian Normal Yes Phasic Yes Updated by Fritz Piper MD on 06/22/2016 12:11:17 PM electronically signed on 06/22/2016 12:17:55 PM with status of Final
--- NOTE | 2016-06-22 19:08 | Internal Med Progress Note ---
Date of Encounter: 06/23/16 Time of Encounter: 22:16 - Assessment and plan (1) CHF (congestive heart failure) Current Visit: Yes Status: Acute Qualifiers: Congestive heart failure type: unspecified congestive heart failure type Congestive heart failure chronicity: acute on chronic Qualified Code(s): I50.9 - Heart failure, unspecified (2) DVT prophylaxis Current Visit: Yes Status: Acute (3) HCAP (healthcare-associated pneumonia) Current Visit: Yes Status: Acute (4) Diabetes mellitus Current Visit: No Status: Chronic Qualifiers: Diabetes mellitus type: type 2 Diabetes mellitus complication status: with circulatory complication Diabetes mellitus complication detail: with other circulatory complications Diabetes mellitus intermission coordinator insulin use: with intermission coordinator use Qualified Code(s): E11.59 - Type 2 diabetes mellitus with other circulatory complications; Z79.4 - care home (current) use of insulin (5) Uncontrolled diabetes mellitus Current Visit: No Status: Chronic Qualifiers: Diabetes mellitus type: type 2 Diabetes mellitus complication status: with unspecified complications Diabetes mellitus skilled nursing insulin use: unspecified skilled nursing insulin use status Qualified Code(s): E11.8 - Type 2 diabetes mellitus with unspecified complications; E11.65 - Type 2 diabetes mellitus with hyperglycemia (6) DVT (deep venous thrombosis) Current Visit: Yes Status: Acute Assessment and plan: 46 y/o female past medical history of systolic and diastolic heart failure, diabetes mellitus type II with peripheral neuropathy and peripheral vascular disease admitted to the hospital with complaints of shortness of breath. Patient was diagnosed to be in decompensated heart failure, improving with diuresis. # Acute deocmpensated systolic and diastolic heart failure: CXR on admission shows b/l pleural effusion. ECHO with LVEF 40%, global reduction in LV systolic function with regional wall motion abnormalities that are unchanged from prior. Mild LVDD, mild to modereate MR. MIld TR, Pulm HTN, Large pleural effusion, trivial pericardial effusion. Improving with diuresis. Work up forischemia negative. # HCAP: CT chets findings consistent with pneumonia. On Vancomycin and Cefepime , will change to PO abx on d/c. Blood c/s NTD. Thoracocentesis was done, however appears that cytology ahs not been sent. # Hypothermia: Resolved. # Left upper extremity DVT: Left upper extremity doppler shows DVT. Appears to be a large clot. Pt had IV line in left arm which has been reoved. Given its a deep vein will start on AC with Xarelto to be continued for 3 months. # Diabetes Mellitus Type 2 with complications: No further episodes of hypoglycemia. On lower dose on insulin, will adjusta s needed.BGM AC and HS # h/o PVD: c/r stable # Tobacco use disorder: counseled on cessation # DVT Prophylaxis: On Xarelto Qualifiers: DVT location: upper extremity Affected thrombotic vein of extremity: brachial Laterality: left Chronicity: acute Qualified Code(s): I82.622 - Acute embolism and thrombosis of deep veins of left upper extremity - Time Spent With Patient 25 - 35 minutes - Subjective Interval history: seen adn examined at bedside. Denies any chest pain, SOB has improved. Noticed hypoglycemic episodes in am - Constitutional Vitals: Temp Pulse Resp BP Pulse Ox 98.6 F 100 20 142/62 96 06/22/16 15:45 06/22/16 15:45 06/22/16 15:19 06/22/16 15:19 06/22/16 15:19 General appearance: Present: A&O X 3, pleasant, no acute distress, answers questions appropriately - Head Head exam: Present: atraumatic, normocephalic - Eye Eye exam: Present: PERRL, conjuntiva pink, sclera anicteric Pupils: Present: PERRL - Respiratory Respiratory exam: Present: CTAB. Absent: accessory muscle use, rales, rhonchi, wheezes - Cardiovascular Cardiovascular exam: Present: RRR, +S1, +S2. Absent: diastolic murmur, gallop, rubs, systolic murmur - Extremities Exam Extremities exam: Present: warm, radial pulses palpable and symetrical. Absent : calf tenderness, cyanotic, normal inspection (swelling left arm), pedal edema - Neurological Exam Neurological exam: Present: CN II-XII intact, oriented X3, no focal deficits. Absent: pronater drift, facial droop, speech deficit - Skin Skin exam: Present: dry, intact Internal Medicine: Result - Labs CBC & Chem 7: 06/23/16 08:10 06/23/16 08:10 Labs: BMP 06/22/16 05:25 Sodium 143 Potassium 3.6 Chloride 102 Carbon Dioxide 32 H BUN 39 H Creatinine 1.07 Glucose 32 L* Calcium 7.9 L - ABG Interpretation ABG results: PT/INR, D-dimer PT 13.2 Seconds (9.4-12.1) H 06/17/16 22:53 Consult Discharge Plan - Plan Referrals: Jamal Metzger DO [Resident] - 06/30/16 9:30 am NO,PCP [Primary Care Provider] -
[2016-06-23] MEDS: Cefepime HCl 2,000 MG in D5% in Water (Mini-Bag+) 100 ML IVPB SCH ×2 (05:57→17:02)
[2016-06-23] MEDS: *HR* Heparin 5,000 UNIT/ML VIAL SQ SCH ×2 (05:58→17:02)
[2016-06-23] MEDS: Furosemide 40 MG/4 ML VIAL IVP SCH ×2 (07:59→21:22)
[2016-06-23] MEDS: Insulin LISPRO 300 UNITS/3 ML VIAL SQ SCH ×3 (07:59→17:06)
[2016-06-23] MEDS: Insulin DETEMIR 100 UNIT/ML X5UNITS SQ SCH ×2 (08:00→21:22)
[2016-06-23] MEDS: Gabapentin 400 MG CAPSULE PO SCH ×3 (08:01→21:22)
[2016-06-23] MEDS: Nicotine 7 MG PATCH.TD24 TD SCH (08:01)
[2016-06-23 08:43] LABS: Basophils # 0.1 K/mcL (0.0-0.2); Basophils % 1.3 %; Eosinophils # 0.5 K/mcL (0.0-0.6); Hematocrit 33.9 % (35.3-44.9); Hemoglobin 10.5 g/dL (11.5-15.4); Immature Granulocytes % 0.8 % (0-4); Lymphocytes # 2.3 K/mcL (0.6-4.6); Lymphocytes % 26.6 %; Mean Corpuscular Volume 87.1 fL (83.0-100.0); Monocytes # 0.8 K/mcL (0.0-1.3); Monocytes % 9.3 %; Neutrophils # 4.8 K/mcL (1.6-8.9); Platelet Count 391 K/mcL (140-400); Red Blood Count 3.89 M/mcL (3.82-4.97); Red Cell Distribution Width 15.1 % (11.5-14.5)
[2016-06-23 08:55] LABS: BUN/Creatinine Ratio 38 (6-26); Blood Urea Nitrogen 42 mg/dL (7-20); Calcium 7.7 mg/dL (8.6-10.8); Carbon Dioxide 32 mEq/L (19-29); Chloride 100 mEq/L (98-109); Glucose 231 mg/dL (70-99); Magnesium 1.6 mg/dL (1.6-2.6); Osmolality,Calculated 306 (280-300); Phosphorous 3.2 mg/dL (2.3-4.7); Potassium 4.1 mEq/L (3.5-4.5); Sodium 139 mEq/L (136-145); eGFR For African Americans > 60 (> 60); eGFR For Non-African Americans 53 (> 60)
--- NOTE | 2016-06-23 18:09 | Internal Med Progress Note ---
Date of Encounter: 06/23/16 Time of Encounter: 18:08 - Assessment and plan (1) CHF (congestive heart failure) Current Visit: Yes Status: Acute Qualifiers: Congestive heart failure type: unspecified congestive heart failure type Congestive heart failure chronicity: acute on chronic Qualified Code(s): I50.9 - Heart failure, unspecified (2) DVT prophylaxis Current Visit: Yes Status: Acute (3) HCAP (healthcare-associated pneumonia) Current Visit: Yes Status: Acute (4) Diabetes mellitus Current Visit: No Status: Chronic Qualifiers: Diabetes mellitus type: type 2 Diabetes mellitus complication status: with circulatory complication Diabetes mellitus complication detail: with other circulatory complications Diabetes mellitus terminal manager insulin use: with terminal manager use Qualified Code(s): E11.59 - Type 2 diabetes mellitus with other circulatory complications; Z79.4 - assisted (current) use of insulin (5) Uncontrolled diabetes mellitus Current Visit: No Status: Chronic Qualifiers: Diabetes mellitus type: type 2 Diabetes mellitus complication status: with unspecified complications Diabetes mellitus chcf insulin use: unspecified chcf insulin use status Qualified Code(s): E11.8 - Type 2 diabetes mellitus with unspecified complications; E11.65 - Type 2 diabetes mellitus with hyperglycemia (6) DVT (deep venous thrombosis) Current Visit: Yes Status: Acute Assessment and plan: 46 y/o female past medical history of systolic and diastolic heart failure, diabetes mellitus type II with peripheral neuropathy and peripheral vascular disease admitted to the hospital with complaints of shortness of breath. Patient was diagnosed to be in decompensated heart failure, improving with diuresis. # Acute deocmpensated systolic and diastolic heart failure: CXR on admission shows b/l pleural effusion. ECHO with LVEF 40%, global reduction in LV systolic function with regional wall motion abnormalities that are unchanged from prior. Mild LVDD, mild to modereate MR. MIld TR, Pulm HTN, Large pleural effusion, trivial pericardial effusion. Improving with diuresis. Work up forischemia negative. # HCAP: CT chets findings consistent with pneumonia. On Vancomycin and Cefepime , will change to PO abx on d/c. Blood c/s NTD. Thoracocentesis was done, however appears that cytology ahs not been sent. # Hypothermia: Resolved. # Left upper extremity DVT: Left upper extremity doppler shows DVT. Appears to be a large clot. Pt had IV line in left arm which has been reoved. Given its a deep vein will start on AC with Xarelto to be continued for 3 months. # Diabetes Mellitus Type 2 with complications: No further episodes of hypoglycemia. On lower dose on insulin, will adjusta s needed.BGM AC and HS # h/o PVD: c/r stable # Tobacco use disorder: counseled on cessation # DVT Prophylaxis: On Xarelto Qualifiers: DVT location: upper extremity Affected thrombotic vein of extremity: brachial Laterality: left Chronicity: acute Qualified Code(s): I82.622 - Acute embolism and thrombosis of deep veins of left upper extremity - Subjective Interval history: seen adn examined at bedside. Denies any chest pain, SOB has improved. Noticed hypoglycemic episodes in am - Constitutional Vitals: Temp Pulse Resp BP Pulse Ox 98.8 F 83 18 132/61 97 06/23/16 15:32 06/23/16 15:32 06/23/16 15:32 06/23/16 15:32 06/23/16 15:32 General appearance: Present: A&O X 3, pleasant, no acute distress, answers questions appropriately - Head Head exam: Present: atraumatic, normocephalic - Eye Eye exam: Present: PERRL, conjuntiva pink, sclera anicteric Pupils: Present: PERRL - Neck Neck exam general surgery: Present: supple, trachea midline. Absent: lymphadenopathy - Respiratory Respiratory exam: Present: CTAB. Absent: accessory muscle use, rales, rhonchi, wheezes - Cardiovascular Cardiovascular exam: Present: RRR, +S1, +S2. Absent: diastolic murmur, gallop, rubs, systolic murmur - GI/Abdominal GI/Abdominal exam: Present: normal bowel sounds, soft, no peritoneal signs. Absent: distended, tenderness - Extremities Exam Extremities exam: Present: warm, radial pulses palpable and symetrical. Absent : calf tenderness, cyanotic, pedal edema Internal Medicine: Result - Labs CBC & Chem 7: 06/23/16 08:10 06/23/16 08:10 Labs: Short CBC 06/23/16 Range/Units 08:10 WBC 8.6 (4.3-11.1) K/mcL Hgb 10.5 L (11.5-15.4) g/dL Hct 33.9 L (35.3-44.9) % Plt Count 391 (140-400) K/mcL Neutrophils # 4.8 (1.6-8.9) K/mcL BMP 06/23/16 08:10 Sodium 139 Potassium 4.1 Chloride 100 Carbon Dioxide 32 H BUN 42 H Creatinine 1.10 Glucose 231 H Calcium 7.7 L - ABG Interpretation ABG results: PT/INR, D-dimer PT 13.2 Seconds (9.4-12.1) H 06/17/16 22:53 Consult Discharge Plan - Plan Referrals: Jamal Metzger DO [Resident] - 06/30/16 9:30 am NO,PCP [Primary Care Provider] -
[2016-06-23] MEDS: *HR* Rivaroxaban 15 MG TABLET PO SCH (21:22)
[2016-06-24 06:16] LABS: Basophils # 0.2 K/mcL (0.0-0.2); Basophils % 1.9 %; Eosinophils # 0.6 K/mcL (0.0-0.6); Eosinophils % 7.6 %; Hematocrit 34.1 % (35.3-44.9); Hemoglobin 10.8 g/dL (11.5-15.4); Immature Granulocytes % 0.6 % (0-4); Lymphocytes # 1.8 K/mcL (0.6-4.6); Lymphocytes % 22.3 %; Mean Corpuscular HGB Conc 31.7 g/dL (31.6-35.5); Mean Corpuscular Hemoglobin 27.8 pg (28.0-33.3); Mean Corpuscular Volume 87.9 fL (83.0-100.0); Mean Platelet Volume 9.1 fL (9.4-12.4); Monocytes # 0.9 K/mcL (0.0-1.3); Neutrophils # 4.6 K/mcL (1.6-8.9); Platelet Count 414 K/mcL (140-400); Red Blood Count 3.88 M/mcL (3.82-4.97); Red Cell Distribution Width 15.3 % (11.5-14.5); Segmented Neutrophils % 56.6 %
[2016-06-24 06:32] LABS: Calcium 7.8 mg/dL (8.6-10.8); Potassium 4.1 mEq/L (3.5-4.5)
[2016-06-24] MEDS: Cefepime HCl 2,000 MG in D5% in Water (Mini-Bag+) 100 ML IVPB SCH ×2 (06:35→17:58)
[2016-06-24] MEDS: Nicotine 7 MG PATCH.TD24 TD SCH (08:26)
[2016-06-24] MEDS: Gabapentin 400 MG CAPSULE PO SCH ×3 (08:26→21:38)
[2016-06-24] MEDS: *HR* Rivaroxaban 15 MG TABLET PO SCH ×2 (08:26→21:38)
[2016-06-24] MEDS: Furosemide 40 MG/4 ML VIAL IVP SCH (08:26)
[2016-06-24] MEDS: Insulin LISPRO 300 UNITS/3 ML VIAL SQ SCH ×3 (08:26→16:50)
[2016-06-24] MEDS: Insulin DETEMIR 100 UNIT/ML X5UNITS SQ SCH ×2 (08:27→21:38)
--- NOTE | 2016-06-24 18:51 | Internal Med Progress Note ---
Date of Encounter: 06/24/16 Time of Encounter: 18:58 - Assessment and plan (1) CHF (congestive heart failure) Status: Acute Qualifiers: Congestive heart failure type: unspecified congestive heart failure type Congestive heart failure chronicity: acute on chronic Qualified Code(s): I50.9 - Heart failure, unspecified (2) DVT prophylaxis Status: Acute (3) HCAP (healthcare-associated pneumonia) Status: Acute (4) Diabetes mellitus Status: Chronic Qualifiers: Diabetes mellitus type: type 2 Diabetes mellitus complication status: with circulatory complication Diabetes mellitus complication detail: with other circulatory complications Diabetes mellitus fpc insulin use: with terminal gauger supervisor use Qualified Code(s): E11.59 - Type 2 diabetes mellitus with other circulatory complications; Z79.4 - prison (current) use of insulin (5) Uncontrolled diabetes mellitus Status: Chronic Qualifiers: Diabetes mellitus type: type 2 Diabetes mellitus complication status: with unspecified complications Diabetes mellitus fpc insulin use: unspecified terminal gauger supervisor insulin use status Qualified Code(s): E11.8 - Type 2 diabetes mellitus with unspecified complications; E11.65 - Type 2 diabetes mellitus with hyperglycemia (6) DVT (deep venous thrombosis) Status: Acute Assessment and plan: 46 y/o female past medical history of systolic and diastolic heart failure, diabetes mellitus type II with peripheral neuropathy and peripheral vascular disease admitted to the hospital with complaints of shortness of breath. Patient was diagnosed to be in decompensated heart failure, improving with diuresis. # Acute deocmpensated systolic and diastolic heart failure: CXR on admission shows b/l pleural effusion. ECHO with LVEF 40%, global reduction in LV systolic function with regional wall motion abnormalities that are unchanged from prior. Mild LVDD, mild to modereate MR. MIld TR, Pulm HTN, Large pleural effusion, trivial pericardial effusion. Improving with diuresis. Work up forischemia negative. # HCAP: CT chets findings consistent with pneumonia. On Vancomycin and Cefepime , will change to PO abx on d/c. Blood c/s NTD. Thoracocentesis was done, however appears that cytology ahs not been sent. # Hypothermia: Resolved. # Left upper extremity DVT: Left upper extremity doppler shows DVT. Appears to be a large clot. Pt had IV line in left arm which has been reoved. Given its a deep vein will start on AC with Xarelto to be continued for 3 months. # Diabetes Mellitus Type 2 with complications: No further episodes of hypoglycemia. On lower dose on insulin, will adjusta s needed.BGM AC and HS # h/o PVD: c/r stable # Tobacco use disorder: counseled on cessation # DVT Prophylaxis: On Xarelto Qualifiers: DVT location: upper extremity Affected thrombotic vein of extremity: brachial Laterality: left Chronicity: acute Qualified Code(s): I82.622 - Acute embolism and thrombosis of deep veins of left upper extremity - Time Spent With Patient 25 - 35 minutes - Subjective Interval history: seen adn examined at bedside. Denies any chest pain, SOB has improved. Noticed hypoglycemic episodes in am - Constitutional Vitals: Temp Pulse Resp BP Pulse Ox 98.2 F 82 18 139/66 97 06/24/16 16:11 06/24/16 16:11 06/24/16 16:11 06/24/16 16:11 06/24/16 16:11 General appearance: Present: A&O X 3, pleasant, no acute distress, answers questions appropriately Internal Medicine: Result - Labs CBC & Chem 7: 06/25/16 04:56 06/25/16 04:56 Labs: Short CBC 06/24/16 Range/Units 05:55 WBC 8.0 (4.3-11.1) K/mcL Hgb 10.8 L (11.5-15.4) g/dL Hct 34.1 L (35.3-44.9) % Plt Count 414 H (140-400) K/mcL Neutrophils # 4.6 (1.6-8.9) K/mcL BMP 06/24/16 05:55 Sodium 140 Potassium 4.1 Chloride 102 Carbon Dioxide 29 BUN 45 H Creatinine 1.19 H Glucose 337 H Calcium 7.8 L - ABG Interpretation ABG results: PT/INR, D-dimer PT 13.2 Seconds (9.4-12.1) H 06/17/16 22:53 Consult Discharge Plan - Plan Instructions: Cefdinir (By mouth), Insulin Detemir (Injection), Rivaroxaban ( By mouth), Heart Failure (DC), Pneumonia (DC), Cigarette Smoking and Your Health , Sales Trainee (GEN) Referrals: Jamal Metzger DO [Resident] - 06/30/16 9:30 am NO,PCP [Primary Care Provider] - Prescriptions: Cefdinir [Omnicef] 300 mg PO BID #14 capsule Insulin DETEMIR [Levemir Flextouch] 10 unit SQ BID #1 insuln.pen Rivaroxaban [Xarelto] 15 mg PO BID #30 tablet Rivaroxaban [Xarelto] 15 mg PO BID 20 Days
[2016-06-25 05:19] LABS: Basophils # 0.2 K/mcL (0.0-0.2); Eosinophils # 0.6 K/mcL (0.0-0.6); Hematocrit 38.3 % (35.3-44.9); Hemoglobin 12.1 g/dL (11.5-15.4); Mean Corpuscular HGB Conc 31.6 g/dL (31.6-35.5); Mean Corpuscular Hemoglobin 28.1 pg (28.0-33.3); Mean Corpuscular Volume 88.9 fL (83.0-100.0); Mean Platelet Volume 9.3 fL (9.4-12.4); Nucleated Red Blood Cells 0.3 /100 WBC (0); Platelet Count 359 K/mcL (140-400); Red Blood Count 4.31 M/mcL (3.82-4.97); Red Cell Distribution Width 15.4 % (11.5-14.5)
[2016-06-25 05:36] LABS: BUN/Creatinine Ratio 41 (6-26); Blood Urea Nitrogen 47 mg/dL (7-20); Calcium 8.3 mg/dL (8.6-10.8); Carbon Dioxide 24 mEq/L (19-29); Chloride 107 mEq/L (98-109); Glucose 271 mg/dL (70-99); Osmolality,Calculated 310 (280-300); Potassium 4.4 mEq/L (3.5-4.5); Sodium 139 mEq/L (136-145); eGFR For African Americans > 60 (> 60); eGFR For Non-African Americans 51 (> 60)
[2016-06-25 05:48] LABS: Lymphocytes # 1.7 K/mcL (0.6-4.6); Neutrophils # 6.1 K/mcL (1.6-8.9)
[2016-06-25 05:49] LABS: Platelet Estimate Normal (Normal); Polychromasia 1+ (Not Present); Reactive Lymphocytes Present (Not Present)
[2016-06-25] MEDS: Cefepime HCl 2,000 MG in D5% in Water (Mini-Bag+) 100 ML IVPB SCH (06:01)
[2016-06-25 07:27] VITALS: BP 139/71
[2016-06-25] MEDS: *HR* Rivaroxaban 15 MG TABLET PO SCH (08:13)
[2016-06-25] MEDS: Insulin LISPRO 300 UNITS/3 ML VIAL SQ SCH (08:13)
[2016-06-25] MEDS: Gabapentin 400 MG CAPSULE PO SCH (08:13)
[2016-06-25] MEDS: Insulin DETEMIR 100 UNIT/ML X5UNITS SQ SCH (08:14)
[2016-06-25] MEDS: Nicotine 7 MG PATCH.TD24 TD SCH (08:14)
--- NOTE | 2016-06-25 09:17 | Discharge Summary ---
Date of Encounter: 06/25/16 Time of Encounter: 09:08 - Discharge Diagnosis (1) CHF (congestive heart failure) Priority: Primary Status: Acute Qualifiers: Congestive heart failure type: unspecified congestive heart failure type Congestive heart failure chronicity: acute on chronic Qualified Code(s): I50.9 - Heart failure, unspecified (2) DVT prophylaxis Priority: Secondary Status: Acute (3) HCAP (healthcare-associated pneumonia) Priority: Primary Status: Acute (4) Diabetes mellitus Priority: Secondary Status: Chronic Qualifiers: Diabetes mellitus type: type 2 Diabetes mellitus complication status: with circulatory complication Diabetes mellitus complication detail: with other circulatory complications Diabetes mellitus terminal computer operator insulin use: with intermediate use Qualified Code(s): E11.59 - Type 2 diabetes mellitus with other circulatory complications; Z79.4 - predatory animal exterminator (current) use of insulin (5) Uncontrolled diabetes mellitus Priority: Secondary Status: Chronic Qualifiers: Diabetes mellitus type: type 2 Diabetes mellitus complication status: with unspecified complications Diabetes mellitus terminal computer operator insulin use: unspecified terminal computer operator insulin use status Qualified Code(s): E11.8 - Type 2 diabetes mellitus with unspecified complications; E11.65 - Type 2 diabetes mellitus with hyperglycemia (6) DVT (deep venous thrombosis) Priority: Secondary Status: Acute Qualifiers: DVT location: upper extremity Affected thrombotic vein of extremity: brachial Laterality: left Chronicity: acute Qualified Code(s): I82.622 - Acute embolism and thrombosis of deep veins of left upper extremity - Discharge Medications Prescriptions: Cefdinir [Omnicef] 300 mg PO BID #14 capsule Insulin DETEMIR [Levemir Flextouch] 10 unit SQ BID #1 insuln.pen Rivaroxaban [Xarelto] 15 mg PO BID #30 tablet Rivaroxaban [Xarelto] 15 mg PO BID 20 Days Home Medications: Albuterol Sulfate [Proair Hfa] 2 puff IH Q4H PRN 06/18/16 [History] Alprazolam [Xanax 0.5 MG Tablet] 0.5 mg PO HS 06/18/16 [History] Atorvastatin [Lipitor] 40 mg PO HS 06/18/16 [History] Clopidogrel [Plavix] 75 mg PO DAILY 06/18/16 [History] Docusate [Colace] 100 mg PO BID 06/18/16 [History] Fenofibrate [Lofibra] 160 mg PO DAILY 06/18/16 [History] Furosemide [Lasix] 40 mg PO DAILY 06/18/16 [History] Gabapentin [Neurontin] 400 mg PO TID 06/18/16 [History] Isosorbide MONOnitrate (24 HR) [Imdur] 60 mg PO DAILY 06/18/16 [History] Lisinopril 2.5 mg PO DAILY 06/18/16 [History] Metoprolol XL (24 HR) Succ [Toprol Xl] 50 mg PO DAILY 06/18/16 [History] Potassium Chloride [Klor-Con Sprinkle] 10 meq PO BID 06/18/16 [History] Ranolazine [Ranexa] 500 mg PO BID 06/18/16 [History] Cefdinir [Omnicef] 300 mg PO BID #14 capsule 06/25/16 [Rx] Insulin DETEMIR [Levemir Flextouch] 10 unit SQ BID #1 insuln.pen 06/25/16 [Rx] Rivaroxaban [Xarelto] 15 mg PO BID #30 tablet 06/25/16 [Rx] Rivaroxaban [Xarelto] 15 mg PO BID 20 Days 06/25/16 [Rx] Allergies/Adverse Reactions: Allergies ciprofloxacin [From Cipro] Allergy (Verified 05/16/16 22:20) Hives codeine Allergy (Verified 06/18/16 10:32) Hives insulin glargine [From Lantus] Allergy (Verified 06/18/16 10:32) Hives Date of admission: 06/18/16 13:23 Primary care physician: PCP NO Consults: 06/19/16 13:20 Consult to Thoracic Surgery [CONS] Stat Consulting Provider: Cardiothoracic Surgery Hillary Reason for Consult: Bilateral pleural effusion, left side loculated, kindly evaluate, thank you. Call Completed: Yes 06/21/16 07:25 Consult to Interventional Radiology [CONS] Routine Consulting Provider: Radiology Interventional Cols Reason for Consult: Thoracentensis Call Completed: No 06/21/16 10:31 Consult to Invasive Line Access Team [CONS] Routine Reason for Consult: NO IV ACCESS AT THIS TIME Line Type: EPIV 06/21/16 16:25 Consult to Occupational Therapy [CONS] Routine Comment: Evaluate, develop and implement POC Consult to Physical Therapy [CONS] Routine Comment: Evaluate, develop and implement POC - Patient Status Disposition: Home, Self-Care Condition: Fair - Discharge Instructions Instructions: Cefdinir (By mouth), Insulin Detemir (Injection), Rivaroxaban ( By mouth), Heart Failure (DC), Pneumonia (DC), Cigarette Smoking and Your Health , Tissue Inserter (GEN) Follow Up With: Jamal Metzger DO [Resident] - 06/30/16 9:30 am NO,PCP [Primary Care Provider] - Forms: ED Satisfaction Letter Interval History: 46 y/o female past medical history of systolic and diastolic heart failure, diabetes mellitus type II with peripheral neuropathy and peripheral vascular disease admitted to the hospital with complaints of shortness of breath. Patient was diagnosed to be in decompensated heart failure. CXR on admission shows b/l pleural effusion. ECHO with LVEF 40%, global reduction in LV systolic function with regional wall motion abnormalities that are unchanged from prior. Mild LVDD, mild to modereate MR. MIld TR, Pulm HTN, Large pleural effusion, trivial pericardial effusion. Improving with diuresis. Work up forischemia negative. Patient improved with diuresis and is discharged home on PO lasix. CT chest on admission showed consolidation and pleural effusion which was drained with symtomtic improvement. SHe was treated for HCAP and discharged home on Omnicef to be continued for 5 more days. Patient clinically stable at the time of d/c Treatment plan exaplained in detail and adequate time given for answering all questions. Hospital course: Ms. Mckeon is a 46 year old female - Time Spent with Patient Total time spent providing and/or coordinating discharge services: Greater than 30 minutes - Constitutional Vitals: Temp Pulse Resp BP Pulse Ox 97.8 F 82 18 139/71 93 L 06/25/16 07:25 06/25/16 08:42 06/25/16 07:25 06/25/16 07:25 06/25/16 07:25 General appearance: Present: A&O X 3, pleasant, no acute distress, answers questions appropriately - Head Head exam: Present: atraumatic, normocephalic - Eye Eye exam: Present: PERRL, conjuntiva pink, sclera anicteric Pupils: Present: PERRL - Neck Neck exam general surgery: Present: supple, trachea midline. Absent: lymphadenopathy - Respiratory Respiratory exam: Present: CTAB. Absent: accessory muscle use, rales, rhonchi, wheezes - Cardiovascular Cardiovascular exam: Present: RRR, +S1, +S2. Absent: diastolic murmur, gallop, rubs, systolic murmur - GI/Abdominal GI/Abdominal exam: Present: normal bowel sounds, soft, no peritoneal signs. Absent: distended, tenderness - Extremities Exam Extremities exam: Present: warm, radial pulses palpable and symetrical. Absent : calf tenderness, cyanotic, pedal edema - Neurological Exam Neurological exam: Present: CN II-XII intact, oriented X3, no focal deficits. Absent: pronater drift, facial droop, speech deficit - Skin Skin exam: Present: dry, intact
== END 2016-06-25 12:10 | disposition home or self-care (01) | DRG 194 ==
LOC: 3BNU 22:38 → EMEROO 22:38 → 3BNU 06-18 01:20 → SUATTDRO 06-18 13:23 → 2NNU 06-19 12:18
PROVIDERS: ADMIT Pediatrics; ATTEND Internal Medicine

== ENCOUNTER 2016-07-05 16:04 | Observation (INO) ==
--- NOTE | 2016-07-05 20:03 | Emergency Department Note ---
Disposition Clinical Impression: Bilateral pleural effusion, Atypical chest pain, Pleural effusion Congestive heart failure Qualifiers: Congestive heart failure type: combined Congestive heart failure chronicity: acute on chronic Qualified Code(s): I50.43 - Acute on chronic combined systolic (congestive) and diastolic (congestive) heart failure Disposition: Admitted As Inpatient Condition: Serious Referrals: NO,PCP [Primary Care Provider] - Forms: ED Satisfaction Letter Time of Disposition: 21:44 Chest Pain HPI - General Chief Complaint: ED Chest Pain Stated Complaint: Lethargic/Chest Pain Time Seen by Provider: 07/05/16 19:38 Source: patient Mode of arrival: ambulatory Limitations: other Vital Signs Reviewed: Yes Nursing Notes Reviewed: Yes - History of Present Illness HPI Narrative: 46-year-old female history of CHF, cirrhosis, CAD, present chest pain or rest since this morning. Patient is currently anticoagulated on Xarelto and Plavix, and states that she cannot take aspirin. She has taken her medication today, she states that she has had total aching chest pressure in her mid chest for the last several hours and intermittent worse with exertion. She states that she previous had a thoracentesis done when she was in the hospital a few weeks ago for similar complaints. Pt complaint: chest pain Onset (ago): hour(s) (6) Duration: now resolved Onset: during rest Pain Location: left chest, right chest Severity: moderate Severity scale (1-10): 10 Pain Radiation: none Improves with: nothing Worsens with: nothing Treatments prior to arrival chest pain: none - Related Data Home Medications Medication Instructions Recorded Confirmed Albuterol Sulfate [Proair Hfa] 2 puff IH Q4H PRN 06/18/16 06/18/16 Alprazolam [Xanax 0.5 MG Tablet] 0.5 mg PO HS 06/18/16 06/18/16 Atorvastatin [Lipitor] 40 mg PO HS 06/18/16 06/18/16 Clopidogrel [Plavix] 75 mg PO DAILY 06/18/16 06/18/16 Docusate [Colace] 100 mg PO BID 06/18/16 06/18/16 Fenofibrate [Lofibra] 160 mg PO DAILY 06/18/16 06/18/16 Furosemide [Lasix] 40 mg PO DAILY 06/18/16 06/18/16 Gabapentin [Neurontin] 400 mg PO TID 06/18/16 06/18/16 Isosorbide MONOnitrate (24 HR) 60 mg PO DAILY 06/18/16 06/18/16 [Imdur] Lisinopril 2.5 mg PO DAILY 06/18/16 06/18/16 Metoprolol XL (24 HR) Succ [Toprol 50 mg PO DAILY 06/18/16 06/18/16 Xl] Potassium Chloride [Klor-Con 10 meq PO BID 06/18/16 06/18/16 Sprinkle] Ranolazine [Ranexa] 500 mg PO BID 06/18/16 06/18/16 Previous Rx's Medication Instructions Recorded Insulin DETEMIR [Levemir Flextouch] 10 unit SQ BID #1 insuln.pen 06/25/16 Rivaroxaban [Xarelto] 15 mg PO BID 20 Days 06/25/16 Allergies Allergy/AdvReac Type Severity Reaction Status Date / Time ciprofloxacin [From Cipro] Allergy Hives Verified 07/05/16 16:51 codeine Allergy Hives Verified 07/05/16 16:51 insulin glargine Allergy Hives Verified 07/05/16 16:51 [From Lantus] All systems ED: reviewed and negative except as stated. Constitutional: Reports: weakness. Denies: fever, chills Cardiovascular: Reports: chest pain, dyspnea on exertion, orthopnea Respiratory: Denies: cough, dyspnea Gastrointestinal: Reports: nausea. 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 HEENT: NCAT, sclera ictericus, PERRLA bilaterally, normal external ears bilaterally, nasal septum nondeviated, average dentition, MMM Neck: normal inspection, neck is supple, trachea midline Resp: diminished breath sounds bilateral bases. CV: RRR, no m/g/r, +3 pitting edema bilateral lower extremities GI: normal inspection, Soft, NTND, BS present Back: normal inspection, no tenderness to palpation Neuro: A&O3, no gross motor or sensory deficits bilaterally Skin: jaundice - General Limitations: other General appearance: alert, lethargic Course Course Narrative: 38-year-old female with history of recent thoracentesis for effusions, history of CAD and cirrhosis with a chest pain workup, likely admission to hospital given multiple medical comorbidities and concern for volume overload, diursesis added. - Reevaluation(s) Reevaluation #1: Patient is still chest pain-free, placed on 3 L nasal cannula as her oxygen dropped to 85%, and admit the patient for bilateral pleural effusions, volume overload, CHF exacerbation, she does not clinically appear to be septic with pneumonia she is afebrile not tachycardic, and does not have a leukocytosis, Admitted to Dr Paez Time: 21:43 Vital Signs Temperature 98.0 F 07/05/16 16:45 Pulse Rate 82 07/05/16 16:45 Respiratory Rate 20 07/05/16 16:45 Blood Pressure 151/80 07/05/16 16:45 O2 Sat by Pulse Oximetry 91 07/05/16 16:45 Temperature 98.0 F 07/05/16 16:45 Pulse Rate 88 07/05/16 21:37 Respiratory Rate 16 07/05/16 21:37 Blood Pressure 163/90 07/05/16 21:37 O2 Sat by Pulse Oximetry 93 07/05/16 21:37 Oxygen Delivery Oxygen Delivery Nasal Cannula Chest Pain - MDM Narrative Medical decision making narrative: 38-year-old female admitted for a CHF exacerbation, volume overload, bilateral pleural effusions. Admitted to the hospital service, IV diuresis started in the emergency department, patient stable condition at the time of ED disposition - Differential Diagnosis Likely: atypical chest pain, chest pain - Medical Records Medical records reviewed: Yes I reviewed the patient's medical records. - Lab Data Lab results reviewed: Yes I reviewed the patient's lab results. Result diagrams: 07/05/16 20:04 07/05/16 20:04 Lab Results 07/05/16 07/05/16 07/05/16 Range/Units 20:04 20:04 20:04 WBC 7.1 (4.3-11.1) K/mcL RBC 3.93 (3.82-4.97) M/mcL Hgb 10.7 L (11.5-15.4) g/dL Hct 33.9 L (35.3-44.9) % MCV 86.3 (83.0-100.0) fL MCH 27.2 L (28.0-33.3) pg MCHC 31.6 (31.6-35.5) g/dL RDW 16.4 H (11.5-14.5) % Plt Count 515 H (140-400) K/mcL MPV 9.0 L (9.4-12.4) fL Immature Gran % 0.6 (0-4) % Seg Neutrophils % 70.8 % Lymphocytes % 17.1 % Monocytes % 7.4 % Eosinophils % 3.3 % Basophils % 0.8 % Neutrophils # 5.0 (1.6-8.9) K/mcL Lymphocytes # 1.2 (0.6-4.6) K/mcL Monocytes # 0.5 (0.0-1.3) K/mcL Eosinophils # 0.2 (0.0-0.6) K/mcL Basophils # 0.1 (0.0-0.2) K/mcL PT 22.5 H (9.4-12.1) Seconds INR 2.0 APTT 38.0 H (26.0-36.0) Seconds Sodium (136-145) mEq/L Potassium (3.5-4.5) mEq/L Chloride (98-109) mEq/L Carbon Dioxide (19-29) mEq/L BUN (7-20) mg/dL Creatinine (0.57-1.11) mg/dL Est GFR ( Amer) (> 60) Est GFR (Non-Af Amer) (> 60) BUN/Creatinine Ratio (6-26) Glucose (70-99) mg/dL Calculated Osmolality (280-300) Calcium (8.6-10.8) mg/dL Total Bilirubin (0.2-1.2) mg/dL Direct Bilirubin (0.0-0.5) mg/dL Indirect Bilirubin (0.0-1.2) mg/dL AST (5-34) Units/L ALT (0-55) Units/L Alkaline Phosphatase (38-126) Units/L Ammonia (18-72) mcmol/L Troponin I (0-0.03) ng/mL B-Natriuretic Peptide 2509 H (0-100) pg/mL Serum Total Protein (6.0-8.3) g/dL Albumin (3.5-5.0) g/dL Globulin (2.4-3.5) g/dL Albumin/Globulin Ratio (1.1-2.2) Lipase (8-78) Units/L 07/05/16 07/05/16 07/05/16 Range/Units 20:04 20:04 20:04 WBC (4.3-11.1) K/mcL RBC (3.82-4.97) M/mcL Hgb (11.5-15.4) g/dL Hct (35.3-44.9) % MCV (83.0-100.0) fL MCH (28.0-33.3) pg MCHC (31.6-35.5) g/dL RDW (11.5-14.5) % Plt Count (140-400) K/mcL MPV (9.4-12.4) fL Immature Gran % (0-4) % Seg Neutrophils % % Lymphocytes % % Monocytes % % Eosinophils % % Basophils % % Neutrophils # (1.6-8.9) K/mcL Lymphocytes # (0.6-4.6) K/mcL Monocytes # (0.0-1.3) K/mcL Eosinophils # (0.0-0.6) K/mcL Basophils # (0.0-0.2) K/mcL PT (9.4-12.1) Seconds INR APTT (26.0-36.0) Seconds Sodium 133 L (136-145) mEq/L Potassium 4.1 (3.5-4.5) mEq/L Chloride 101 (98-109) mEq/L Carbon Dioxide 24 (19-29) mEq/L BUN 27 H (7-20) mg/dL Creatinine 1.41 H (0.57-1.11) mg/dL Est GFR ( Amer) 48 L (> 60) Est GFR (Non-Af Amer) 40 L (> 60) BUN/Creatinine Ratio 19 (6-26) Glucose 303 H (70-99) mg/dL Calculated Osmolality 292 (280-300) Calcium 8.3 L (8.6-10.8) mg/dL Total Bilirubin 0.7 (0.2-1.2) mg/dL Direct Bilirubin 0.3 (0.0-0.5) mg/dL Indirect Bilirubin 0.4 (0.0-1.2) mg/dL AST 17 (5-34) Units/L ALT 14 (0-55) Units/L Alkaline Phosphatase 160 H (38-126) Units/L Ammonia 27 (18-72) mcmol/L Troponin I 0.02 (0-0.03) ng/mL B-Natriuretic Peptide (0-100) pg/mL Serum Total Protein 5.9 L (6.0-8.3) g/dL Albumin 2.3 L (3.5-5.0) g/dL Globulin 3.6 H (2.4-3.5) g/dL Albumin/Globulin Ratio 0.6 L (1.1-2.2) Lipase 6 L (8-78) Units/L - Radiology Data Radiology results reviewed: Yes I reviewed the patient's radiology results. Lab Results 07/05/16 07/05/16 07/05/16 Range/Units 20:04 20:04 20:04 WBC 7.1 (4.3-11.1) K/mcL RBC 3.93 (3.82-4.97) M/mcL Hgb 10.7 L (11.5-15.4) g/dL Hct 33.9 L (35.3-44.9) % MCV 86.3 (83.0-100.0) fL MCH 27.2 L (28.0-33.3) pg MCHC 31.6 (31.6-35.5) g/dL RDW 16.4 H (11.5-14.5) % Plt Count 515 H (140-400) K/mcL MPV 9.0 L (9.4-12.4) fL Immature Gran % 0.6 (0-4) % Seg Neutrophils % 70.8 % Lymphocytes % 17.1 % Monocytes % 7.4 % Eosinophils % 3.3 % Basophils % 0.8 % Neutrophils # 5.0 (1.6-8.9) K/mcL Lymphocytes # 1.2 (0.6-4.6) K/mcL Monocytes # 0.5 (0.0-1.3) K/mcL Eosinophils # 0.2 (0.0-0.6) K/mcL Basophils # 0.1 (0.0-0.2) K/mcL PT 22.5 H (9.4-12.1) Seconds INR 2.0 APTT 38.0 H (26.0-36.0) Seconds Sodium (136-145) mEq/L Potassium (3.5-4.5) mEq/L Chloride (98-109) mEq/L Carbon Dioxide (19-29) mEq/L BUN (7-20) mg/dL Creatinine (0.57-1.11) mg/dL Est GFR ( Amer) (> 60) Est GFR (Non-Af Amer) (> 60) BUN/Creatinine Ratio (6-26) Glucose (70-99) mg/dL Calculated Osmolality (280-300) Calcium (8.6-10.8) mg/dL Total Bilirubin (0.2-1.2) mg/dL Direct Bilirubin (0.0-0.5) mg/dL Indirect Bilirubin (0.0-1.2) mg/dL AST (5-34) Units/L ALT (0-55) Units/L Alkaline Phosphatase (38-126) Units/L Ammonia (18-72) mcmol/L Troponin I (0-0.03) ng/mL B-Natriuretic Peptide 2509 H (0-100) pg/mL Serum Total Protein (6.0-8.3) g/dL Albumin (3.5-5.0) g/dL Globulin (2.4-3.5) g/dL Albumin/Globulin Ratio (1.1-2.2) Lipase (8-78) Units/L 07/05/16 07/05/16 07/05/16 Range/Units 20:04 20:04 20:04 WBC (4.3-11.1) K/mcL RBC (3.82-4.97) M/mcL Hgb (11.5-15.4) g/dL Hct (35.3-44.9) % MCV (83.0-100.0) fL MCH (28.0-33.3) pg MCHC (31.6-35.5) g/dL RDW (11.5-14.5) % Plt Count (140-400) K/mcL MPV (9.4-12.4) fL Immature Gran % (0-4) % Seg Neutrophils % % Lymphocytes % % Monocytes % % Eosinophils % % Basophils % % Neutrophils # (1.6-8.9) K/mcL Lymphocytes # (0.6-4.6) K/mcL Monocytes # (0.0-1.3) K/mcL Eosinophils # (0.0-0.6) K/mcL Basophils # (0.0-0.2) K/mcL PT (9.4-12.1) Seconds INR APTT (26.0-36.0) Seconds Sodium 133 L (136-145) mEq/L Potassium 4.1 (3.5-4.5) mEq/L Chloride 101 (98-109) mEq/L Carbon Dioxide 24 (19-29) mEq/L BUN 27 H (7-20) mg/dL Creatinine 1.41 H (0.57-1.11) mg/dL Est GFR ( Amer) 48 L (> 60) Est GFR (Non-Af Amer) 40 L (> 60) BUN/Creatinine Ratio 19 (6-26) Glucose 303 H (70-99) mg/dL Calculated Osmolality 292 (280-300) Calcium 8.3 L (8.6-10.8) mg/dL Total Bilirubin 0.7 (0.2-1.2) mg/dL Direct Bilirubin 0.3 (0.0-0.5) mg/dL Indirect Bilirubin 0.4 (0.0-1.2) mg/dL AST 17 (5-34) Units/L ALT 14 (0-55) Units/L Alkaline Phosphatase 160 H (38-126) Units/L Ammonia 27 (18-72) mcmol/L Troponin I 0.02 (0-0.03) ng/mL B-Natriuretic Peptide (0-100) pg/mL Serum Total Protein 5.9 L (6.0-8.3) g/dL Albumin 2.3 L (3.5-5.0) g/dL Globulin 3.6 H (2.4-3.5) g/dL Albumin/Globulin Ratio 0.6 L (1.1-2.2) Lipase 6 L (8-78) Units/L Chest X-Ray 07/05/16 19:39 IMPRESSION: Findings are most consistent with CHF. Pneumonia in the lung bases cannot be excluded. D/ / Joseph Lopes MD / Joseph Lopes MD Interpreting Provider: Joseph Lopes MD - EKG Data EKG attestation: Yes I reviewed and interpreted this EKG. EKG shows normal: sinus rhythm Rate: normal (88 bpm [place] 167 QRS 122 QTc 458to signal elevations or depressions, inverted T waves and mild depressions in V5 and V6 from repeat EKG done at 1642 to current EKG EKG at 20:04) [place]/QRS: normal ST segment depression in: v5, v6 T wave inversions noted in: v5, v6 Interpretation: nonspecific ST-T wave changes - Core Measures Measure Exclusions: contraindicated (Xarelto plavix therapy) Heart Score - Score History: Moderately Suspicious EKG: Non Specific repolarisation Disturbance Age: 45-65 Risk Factors: Equal/Greater than 3 risk factor or history of atherosclerotic disease Troponin: Less than normal limit HEART Score Total: 5 Attestation Statement - Attestation Attestation: I examined this patient and my medical decision-making was reviewed with the PUBLIC ADDRESS SYSTEM OPERATOR/PA/Advanced Practice Nurse/Resident Physician. I agree with the documented findings, disposition and treatment plan as described except to the extent set forth below.
[2016-07-05 20:23] LABS: Basophils # 0.1 K/mcL (0.0-0.2); Basophils % 0.8 %; Eosinophils # 0.2 K/mcL (0.0-0.6); Eosinophils % 3.3 %; Hematocrit 33.9 % (35.3-44.9); Hemoglobin 10.7 g/dL (11.5-15.4); Immature Granulocytes % 0.6 % (0-4); Lymphocytes # 1.2 K/mcL (0.6-4.6); Lymphocytes % 17.1 %; Mean Corpuscular HGB Conc 31.6 g/dL (31.6-35.5); Mean Corpuscular Hemoglobin 27.2 pg (28.0-33.3); Mean Corpuscular Volume 86.3 fL (83.0-100.0); Monocytes # 0.5 K/mcL (0.0-1.3); Monocytes % 7.4 %; Platelet Count 515 K/mcL (140-400); Red Blood Count 3.93 M/mcL (3.82-4.97); Red Cell Distribution Width 16.4 % (11.5-14.5); Segmented Neutrophils % 70.8 %
[2016-07-05] MEDS ORDERED: Furosemide 40 MG/4 ML VIAL IVP ONE (20:27)
[2016-07-05 20:28] LABS: Prothrombin Time 22.5 Seconds (9.4-12.1)
[2016-07-05] MEDS ORDERED: Ondansetron 4 MG/2 ML VIAL IVP ONE (20:36)
[2016-07-05 20:39] LABS: Albumin 2.3 g/dL (3.5-5.0); Albumin/Globulin Ratio 0.6 (1.1-2.2); Bilirubin,Direct 0.3 mg/dL (0.0-0.5); Bilirubin,Indirect 0.4 mg/dL (0.0-1.2); Bilirubin,Total 0.7 mg/dL (0.2-1.2); Calcium 8.3 mg/dL (8.6-10.8); Globulin 3.6 g/dL (2.4-3.5); Potassium 4.1 mEq/L (3.5-4.5); Total Protein 5.9 g/dL (6.0-8.3)
[2016-07-05 22:32] LABS: Bilirubin,Urine Negative (Negative); Blood,Urine Moderate (Negative); Clarity,Urine Clear (Clear); Color,Urine Yellow (Yellow); Glucose,Urine (UA) >=1000 mg/dL (Normal); Ketones,Urine Negative (Negative); Leukocyte Esterase,Urine Negative (Negative); Nitrite,Urine Negative (Negative); Protein,Urine >=300 mg/dL (Neg-Trace); Specific Gravity,Urine 1.018 (1.010-1.025); Urobilinogen,Urine Normal (Normal)
[2016-07-05 22:35] LABS: Bacteria,Urine None Seen per hpf (None-Few); Hyaline Casts,Urine None Seen per lpf (None-Few); Squamous Epithelial Cell,Urine Many per lpf (None-Few)
[2016-07-06 00:35] LABS: ABG Base Excess 3.3 mEq/L (-2.0 to 3.0); ABG HCO3 28.5 mEQ/L (21-27); ABG Oxygen Saturation 98 % (95-98); ABG PCO2 45 mmHg (35-45); ABG PH 7.41 pH Units (7.32-7.45); ABG PO2 112 mmHg (85-104); ABG TCO2 29.9 mEq/L (20-26); Blood Gas FiO2 32 %
--- NOTE | 2016-07-06 01:35 | Internal Med History&Physical ---
Date of Encounter: 07/06/16 Time of Encounter: 01:33 Assessment and Plan (1) Atypical chest pain Current visit: Yes Status: Acute CP resolved. Negative troponin, will monitor the second set of troponin. Unlikely ACS as etiology, however history of CAD status post PTCA 3 No evidence of CHF exacerbation. Continue monitoring. Tele monitoring (2) Congestive heart failure Current visit: No Status: Acute Ejection fraction 40% according to last echo. Not in exacerbation at this point. Resume home medications. Continue monitoring. Qualifiers: Congestive heart failure type: diastolic Congestive heart failure chronicity: acute on chronic Qualified Code(s): I50.33 - Acute on chronic diastolic (congestive) heart failure (3) Diabetes mellitus Current visit: No Status: Chronic Uncontrolled diabetes, hyperglycemia, last hemoglobin A1c was above 14. Monitor Accu-Cheks. Insulin therapy. Repeat A1c. Qualifiers: Diabetes mellitus type: type 2 Diabetes mellitus complication status: with circulatory complication Diabetes mellitus complication detail: with other circulatory complications Diabetes mellitus parts counterman insulin use: with parts counterman use Qualified Code(s): E11.59 - Type 2 diabetes mellitus with other circulatory complications; Z79.4 - nursing home (current) use of insulin (4) DVT (deep venous thrombosis) Current visit: No Status: Acute continue with AC Qualifiers: DVT location: upper extremity Affected thrombotic vein of extremity: brachial Laterality: left Chronicity: acute Qualified Code(s): I82.622 - Acute embolism and thrombosis of deep veins of left upper extremity Internal Medicine - H&P: HPI Chief complaint: Chest pain Admitted From: Emergency Dept Plans for Post Hospital Care: Home History of present illness: Ms. Mckeon is a 46 year old female with past medical history of chronic liver disease, status post thoracentesis via IR a couple of weeks ago. Presented to the emergency department due to chest pain. The patient was seen and examined in the inpatient unit. She is a poor historian, however she denied chest pain, shortness of breath, fever, chills, diarrhea, abdominal pain during my encounter with her. According to the ED notes, the patient was complaining of chest pain and shortness of breath. She was admitted due to a fluid overload and CHF exacerbation. When I saw the patient she was breathing on room air not in respiratory distress. She had negative troponins upon admission and her brain atretic peptide was elevated, however is chronically elevated. No evidence of ascites. Patient was admitted for evaluation and management. Past Med Surg Social Fam HX - Past Medical History Medical history: cardiomyopathy, cirrhosis, CHF, COPD, coronary artery disease, CVA, diabetes, peripheral artery disease, renal disease, TIA, other Psychiatric history: anxiety - Past Surgical History Surgical History: appendectomy, cholecystectomy, hysterectomy, orthopedic, other , other - Social History Smoking Status: Current every day smoker Smokeless Tobacco Status: No Alcohol use: none Drug use: none - Family History Father Adopted: No Family Member Ethnicity: Non- Living Status: Hx Family Cardiac Disorders: No Hx Family Respiratory Disorders: Yes Hx Family Cancer: Yes Hx Family Endocrine Disorder: Yes Hx Family Neurologic Disorders: No Internal Medicine - H&P: Meds Albuterol Sulfate [Proair Hfa] 2 puff IH Q4H PRN 06/18/16 [History] Alprazolam [Xanax 0.5 MG Tablet] 0.5 mg PO HS PRN 06/18/16 [History] Atorvastatin [Lipitor] 40 mg PO HS 06/18/16 [History] Clopidogrel [Plavix] 75 mg PO DAILY 06/18/16 [History] Docusate [Colace] 100 mg PO BID 06/18/16 [History] Fenofibrate [Lofibra] 160 mg PO DAILY 06/18/16 [History] Furosemide [Lasix] 40 mg PO DAILY 06/18/16 [History] Gabapentin [Neurontin] 400 mg PO TID 06/18/16 [History] Isosorbide MONOnitrate (24 HR) [Imdur] 60 mg PO DAILY 06/18/16 [History] Lisinopril 2.5 mg PO DAILY 06/18/16 [History] Metoprolol XL (24 HR) Succ [Toprol Xl] 50 mg PO DAILY 06/18/16 [History] Potassium Chloride [Klor-Con Sprinkle] 10 meq PO DAILY 06/18/16 [History] Ranolazine [Ranexa] 500 mg PO BID 06/18/16 [History] Insulin DETEMIR [Levemir Flextouch] 10 unit SQ BID #1 insuln.pen 06/25/16 [Rx] Rivaroxaban [Xarelto] 15 mg PO BID 20 Days 06/25/16 [Rx] Allergies ciprofloxacin [From Cipro] Allergy (Verified 07/05/16 16:51) Hives codeine Allergy (Verified 07/05/16 16:51) Hives insulin glargine [From Lantus] Allergy (Verified 07/05/16 16:51) Hives All Systems PM: A 10-system review of systems was performed and is negative for pertinent findings except as documented above in the HPI. - Constitutional Constitutional: as per HPI, no chills, no fever(s), no night sweats - EENT Eyes: as per HPI, no change in vision, no discharge, no pain, no photophobia Ears: as per HPI, no ear discharge, no ear pain, no tinnitus Nose, mouth and throat: as per HPI, no dysphagia, no nasal discharge, no neck pain, no sore throat - Breasts Breasts: as per HPI - Cardiovascular Cardiovascular ROS IM: as per HPI, no chest pain, no diaphoresis, no dyspnea, no lightheadedness, no palpitations, no syncope - Respiratory Respiratory: as per HPI, no cough, no dyspnea, no wheezing, no excessive phlegm production - Gastrointestinal Gastrointestinal: as per HPI, no abdominal pain, no diarrhea, no hematemesis, no hematochezia, no melena, no nausea, no vomiting - Genitourinary Genitourinary: as per HPI, no change in urinary stream, no dysuria, no flank pain, no hematuria Menstruation: as per HPI - Musculoskeletal Musculoskeletal ROS IM: as per HPI, no numbness, no tingling - Integumentary Integumentary IM: as per HPI, no rash, no unusual bruising - Neurological Neurological ROS: as per HPI, no confusion, no convulsions, no focal weakness, no numbness, no tingling, no tremor(s) - Psychiatric Psychiatric: as per HPI - Endocrine Endocrine IM: as per HPI - Hematologic/Lymphatic Hematologic/Lymphatic: as per HPI, no easy bruising - Constitutional Vitals: Temp Pulse Resp BP Pulse Ox 97.6 F 88 19 169/94 95 07/06/16 00:02 07/06/16 00:02 07/06/16 00:02 07/06/16 00:02 07/06/16 00:02 General appearance: Present: disheveled, A&O X 3, pleasant, no acute distress - Head Head exam: Present: atraumatic, normocephalic - Eye Eye exam: Present: PERRL, conjuntiva pink, sclera anicteric Pupils: Present: PERRL - Neck Neck exam general surgery: Present: supple, trachea midline. Absent: lymphadenopathy - Respiratory Respiratory exam: Present: decreased breath sounds. Absent: accessory muscle use, rales, rhonchi, wheezes Additional comments: in bases - Cardiovascular Cardiovascular exam: Present: RRR, +S1, +S2. Absent: diastolic murmur, gallop, rubs, systolic murmur - GI/Abdominal GI/Abdominal exam: Present: normal bowel sounds, soft, no peritoneal signs. Absent: distended, tenderness - Extremities Exam Extremities exam: Present: warm, radial pulses palpable and symetrical. Absent : calf tenderness, cyanotic, pedal edema - Neurological Exam Neurological exam: Present: CN II-XII intact, oriented X3, no focal deficits. Absent: pronater drift, facial droop, speech deficit - Skin Skin exam: Present: dry, intact Internal Med - H&P Results - Labs CBC & Chem 7: 07/05/16 20:04 07/05/16 20:04 Labs: Urine 07/05/16 Range/Units 22:28 Urine Color Yellow (Yellow) Urine Clarity Clear (Clear) Urine pH 7.0 (5.0-8.0) pH Units Ur Specific [place] 1.018 (1.010-1.025) Urine Protein >=300 H (Neg-Trace) mg/dL Urine Glucose (UA) >=1000 H (Normal) mg/dL - ABG Interpretation ABG results: 07/06/16 00:25 ABG pH 7.41 ABG pCO2 45 ABG pO2 112 H ABG HCO3 28.5 H ABG Total CO2 29.9 H ABG O2 Saturation 98 ABG Base Excess 3.3 H
[2016-07-06] MEDS ORDERED: Naloxone 0.4 MG/ML INJ IVP PRN (01:44)
[2016-07-06] MEDS ORDERED: Acetaminophen 325 MG TABLET PO PRN (01:44)
[2016-07-06] MEDS ORDERED: Ondansetron 4 MG/2 ML VIAL IVP PRN (01:44)
[2016-07-06] MEDS ORDERED: 0.9 % Sodium Chloride 1,000 ML IVC SCH (01:45)
[2016-07-06] MEDS ORDERED: *HR* Dextrose 50 % in Water (Syg) 50 ML SYRINGE IVP PRN (01:45)
[2016-07-06] MEDS ORDERED: D5% in Water 1,000 ML IVC PRN (01:45)
[2016-07-06] MEDS ORDERED: Dextrose Gel 15 GM PO PRN ×2 (01:45)
[2016-07-06 02:08] LABS: Amphetamine Screen,Urine Negative ng/mL (Cutoff=1000); Barbiturate Screen,Urine Negative ng/mL (Cutoff=200); Benzodiazepines Screen,Urine Negative ng/mL (Cutoff=200); Cannabinoid Screen,Urine Negative ng/mL (Cutoff = 50); Cocaine Screen,Urine Negative ng/mL (Cutoff= 300); Opiate Screen,Urine Negative ng/mL (Cutoff=300); Phencyclidine Screen,Urine Negative ng/mL (Cutoff=25)
[2016-07-06 04:20] LABS: Basophils # 0.1 K/mcL (0.0-0.2); Basophils % 0.6 %; Eosinophils # 0.3 K/mcL (0.0-0.6); Eosinophils % 3.5 %; Hematocrit 34.1 % (35.3-44.9); Hemoglobin 10.8 g/dL (11.5-15.4); Immature Granulocytes % 0.3 % (0-4); Lymphocytes # 0.9 K/mcL (0.6-4.6); Mean Corpuscular HGB Conc 31.7 g/dL (31.6-35.5); Mean Corpuscular Volume 88.3 fL (83.0-100.0); Mean Platelet Volume 9.3 fL (9.4-12.4); Monocytes # 0.3 K/mcL (0.0-1.3); Monocytes % 4.4 %; Neutrophils # 6.1 K/mcL (1.6-8.9); Platelet Count 458 K/mcL (140-400); Red Blood Count 3.86 M/mcL (3.82-4.97); Red Cell Distribution Width 16.4 % (11.5-14.5); Segmented Neutrophils % 79.2 %
[2016-07-06 04:35] LABS: Hemoglobin A1C 9.8 %
[2016-07-06 04:36] LABS: Albumin 2.2 g/dL (3.5-5.0); Albumin/Globulin Ratio 0.6 (1.1-2.2); Bilirubin,Total 0.9 mg/dL (0.2-1.2); Calcium 8.5 mg/dL (8.6-10.8); Chol/HDL Ratio 7.3 (0-4.9); Globulin 3.5 g/dL (2.4-3.5); Magnesium 1.5 mg/dL (1.6-2.6); Potassium 4.3 mEq/L (3.5-4.5); Total Protein 5.7 g/dL (6.0-8.3)
[2016-07-06] MEDS ORDERED: Famotidine 20 MG/2 ML VIAL IVP SCH (06:00)
[2016-07-06] MEDS: Insulin LISPRO 300 UNITS/3 ML VIAL SQ SCH ×3 (06:12→17:10)
--- NOTE | 2016-07-06 09:06 | Electrocardiograph Report ---
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
[2016-07-06] MEDS: *HR* Rivaroxaban 15 MG TABLET PO SCH ×3 (09:07→21:10)
[2016-07-06] MEDS: Ranolazine 500 MG TAB.ER.12H PO SCH ×3 (09:07→21:10)
[2016-07-06] MEDS: Furosemide 40 MG TABLET PO SCH ×2 (09:07→09:13)
[2016-07-06] MEDS: Metoprolol XL (24 HR) Succ 50 MG TAB.ER.24H PO SCH ×2 (09:07→09:14)
[2016-07-06] MEDS: Isosorbide MONOnitrate (24 HR) 60 MG TAB.ER.24H PO SCH ×2 (09:07→09:13)
[2016-07-06] MEDS ORDERED: Magnesium Sulfate 2 GM in D5% in Water 100 ML IVPB ONE (10:39)
[2016-07-06] MEDS ORDERED: Ipratropium/Albuterol Neb 3 ML IH PRN (14:44)
--- NOTE | 2016-07-06 17:44 | Event Note ---
Date of Encounter: 07/06/16 Time of Encounter: 13:30 46-year-old female with history of CAD, CHF, diabetes, left upper extremity DVT , COPD and cirrhosis was admitted with presumed shortness of breath and acute CHF. Patient is seen and examined at bedside. She does not remember why she presented to the hospital and seems to be confused and slightly disoriented. Reports no chest pain, cough, shortness of breath. Noted to be intermittently noncompliant with medications due to confusion. She is currently being continued on home medications for her chronic comorbidities. Telemetry monitoring remains uneventful and serial troponins are negative for ACS. Recent echocardiogram from 06/18/16 shows moderately decreased EF around 40% with mild mitral and tricuspid regurgitation. Labs reviewed. Serum creatinine noted to be stable at around 1.4 and patient likely has underlying chronic kidney disease stage III. Continue to monitor. Serum magnesium is noted to be slightly decreased, will supplement with IV magnesium sulfate. Lipid profile shows elevated triglycerides and LDL cholesterol. Patient also reports that she would like home hospice services and reports that she has been a recipient of [facility] in the past. Will consult physical and occupational therapy and social media campaign manager for discharge planning.
[2016-07-06] MEDS ORDERED: Furosemide 20 MG TABLET PO ONE (20:20)
[2016-07-06] MEDS ORDERED: Insulin DETEMIR 100 UNIT/ML X5UNITS SQ SCH (21:00)
[2016-07-06] MEDS ORDERED: Insulin LISPRO 300 UNITS/3 ML VIAL SQ SCH (21:00)
[2016-07-06] MEDS: Famotidine 20 MG TABLET PO SCH (21:11)
[2016-07-06] MEDS ORDERED: traMADol 50 MG TABLET PO PRN (23:49)
[2016-07-07] MEDS ORDERED: *HR* OxyCODONE/APAP 5/325 TABLET PO ONE (01:01)
[2016-07-07 04:01] LABS: Basophils % 0.7 %; Eosinophils # 0.4 K/mcL (0.0-0.6); Hematocrit 32.1 % (35.3-44.9); Immature Granulocytes % 0.2 % (0-4); Lymphocytes # 1.2 K/mcL (0.6-4.6); Lymphocytes % 20.9 %; Mean Corpuscular HGB Conc 31.2 g/dL (31.6-35.5); Mean Corpuscular Hemoglobin 27.5 pg (28.0-33.3); Mean Corpuscular Volume 88.2 fL (83.0-100.0); Monocytes # 0.4 K/mcL (0.0-1.3); Monocytes % 7.4 %; Neutrophils # 3.7 K/mcL (1.6-8.9); Platelet Count 436 K/mcL (140-400); Red Blood Count 3.64 M/mcL (3.82-4.97); Red Cell Distribution Width 16.5 % (11.5-14.5); Segmented Neutrophils % 63.8 %
[2016-07-07 04:12] LABS: Calcium 8.2 mg/dL (8.6-10.8); Potassium 3.9 mEq/L (3.5-4.5)
[2016-07-07] MEDS: Famotidine 20 MG TABLET PO SCH (08:12)
[2016-07-07] MEDS: Isosorbide MONOnitrate (24 HR) 60 MG TAB.ER.24H PO SCH (08:12)
[2016-07-07] MEDS: Metoprolol XL (24 HR) Succ 50 MG TAB.ER.24H PO SCH (08:12)
[2016-07-07] MEDS: *HR* Rivaroxaban 15 MG TABLET PO SCH (08:12)
[2016-07-07] MEDS: Furosemide 40 MG TABLET PO SCH (08:17)
[2016-07-07] MEDS: Insulin LISPRO 300 UNITS/3 ML VIAL SQ SCH ×3 (08:17→17:55)
[2016-07-07] MEDS: Ranolazine 500 MG TAB.ER.12H PO SCH (08:17)
[2016-07-07 11:17] VITALS: BP 145/76
--- NOTE | 2016-07-07 15:49 | Discharge Summary ---
Date of Encounter: 07/07/16 Time of Encounter: 08:00 - Discharge Diagnosis (1) Acute encephalopathy Priority: Primary Status: Resolved (2) Chest pain Priority: Primary Status: Acute Qualifiers: Chest pain type: unspecified Qualified Code(s): R07.9 - Chest pain, unspecified (3) CAD (coronary artery disease) Priority: Secondary Status: Chronic Qualifiers: Coronary Disease-Associated Artery/Lesion type: [place] artery [place] vs. transplanted heart: [place] heart Associated angina: without angina Qualified Code(s): I25.10 - Atherosclerotic heart disease of [place] coronary artery without angina pectoris (4) COPD (chronic obstructive pulmonary disease) Priority: Secondary Status: Chronic Qualifiers: COPD type: unspecified COPD Qualified Code(s): J44.9 - Chronic obstructive pulmonary disease, unspecified (5) Diabetes mellitus Priority: Secondary Status: Chronic Qualifiers: Diabetes mellitus type: type 2 Diabetes mellitus complication status: with circulatory complication Diabetes mellitus complication detail: with other circulatory complications Diabetes mellitus buttermaker helper insulin use: with intermediate use Qualified Code(s): E11.59 - Type 2 diabetes mellitus with other circulatory complications; Z79.4 - buttermaker helper (current) use of insulin (6) CVA (cerebral vascular accident) Priority: Secondary Status: Chronic Qualifiers: CVA mechanism: unspecified Qualified Code(s): I63.9 - Cerebral infarction, unspecified (7) Congestive heart failure Priority: Secondary Status: Chronic Qualifiers: Congestive heart failure type: combined Congestive heart failure chronicity : chronic Qualified Code(s): I50.42 - Chronic combined systolic (congestive) and diastolic (congestive) heart failure (8) PVD (peripheral vascular disease) Priority: Secondary Status: Chronic (9) DVT (deep venous thrombosis) Priority: Secondary Status: Chronic Qualifiers: DVT location: upper extremity Affected thrombotic vein of extremity: brachial Laterality: left Chronicity: chronic Qualified Code(s): I82.722 - 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 - Discharge Medications Home Medications: Albuterol Sulfate [Proair Hfa] 2 puff IH Q4H PRN 06/18/16 [History] Alprazolam [Xanax 0.5 MG Tablet] 0.5 mg PO HS PRN 06/18/16 [History] Atorvastatin [Lipitor] 40 mg PO HS 06/18/16 [History] Clopidogrel [Plavix] 75 mg PO DAILY 06/18/16 [History] Docusate [Colace] 100 mg PO BID 06/18/16 [History] Fenofibrate [Lofibra] 160 mg PO DAILY 06/18/16 [History] Furosemide [Lasix] 40 mg PO DAILY 06/18/16 [History] Gabapentin [Neurontin] 400 mg PO TID 06/18/16 [History] Isosorbide MONOnitrate (24 HR) [Imdur] 60 mg PO DAILY 06/18/16 [History] Lisinopril 2.5 mg PO DAILY 06/18/16 [History] Metoprolol XL (24 HR) Succ [Toprol Xl] 50 mg PO DAILY 06/18/16 [History] Potassium Chloride [Klor-Con Sprinkle] 10 meq PO DAILY 06/18/16 [History] Ranolazine [Ranexa] 500 mg PO BID 06/18/16 [History] Rivaroxaban [Xarelto] 15 mg PO BID 20 Days 06/25/16 [Rx] Insulin DETEMIR [Levemir Flextouch] 5 unit SQ HS #1 insuln.pen 07/07/16 [Rx] Allergies/Adverse Reactions: Allergies ciprofloxacin [From Cipro] Allergy (Verified 07/05/16 16:51) Hives codeine Allergy (Verified 07/05/16 16:51) Hives insulin glargine [From Lantus] Allergy (Verified 07/05/16 16:51) Hives Date of admission: 07/05/16 22:01 Primary care physician: PCP NO Consults: 07/07/16 07:01 Consult to Occupational Therapy [CONS] Routine Comment: Evaluate, develop and implement POC Consult to Physical Therapy [CONS] Routine Comment: Evaluate, develop and implement POC 07/07/16 08:00 Consult to Telegraph And Teletype Operator [CONS] Routine Reason for SW Consult: Discharge planning Discharging clinician: Lynda Diamond Anticipated date of discharge: 07/07/16 - Patient Status Disposition: Home Health Service Condition: Fair Functional capacity at discharge: uses cane/walker Overall status at discharge: patient is progressing back to baseline - Discharge Instructions Instructions: Heart Failure (DC), Pleural Effusion (DC) Follow Up With: [facility] [Outside] - 07/14/16 4:00 pm Additional Instructions: Follow-up with primary care provider in one to 2 weeks - Diet and Activity Activity: as per physical therapy, wear oxygen at all times Diet: diabetic diet, low fat, low cholesterol, low salt diet Hospital course: Ms. Mckeon is a 46 year old female with multiple medical problems including history of previous strokes who was admitted with presumed chest pain and shortness of breath. However, she was noted to be very confused and disoriented and unable to provide appropriate history at the time of admission. Upon my evaluation that the after admission, she was noted to be asymptomatic and she reported chest pain to the admitting hospitalist. Her telemetry monitoring remained uneventful and serial troponins were normal, not suggestive of ACS. Patient had a recent echocardiogram which showed preserved ejection fraction with no wall motion abnormalities. Physical therapy evaluation recommends home health services. guest services director was able to contact patient's sister who confirmed that patient is at her baseline mental status with short-term memory loss due to multiple previous strokes. Patient has otherwise remained medically stable while in the hospital. - Time Spent with Patient Total time spent providing and/or coordinating discharge services: Greater than 30 minutes (50 min) - Constitutional Vitals: Temp Pulse Resp BP Pulse Ox 98.8 F 66 18 145/76 96 07/07/16 11:16 07/07/16 11:16 07/07/16 11:16 07/07/16 11:16 07/07/16 11:16 General appearance: Present: A&O X 2 (Mild confusion, poor insight into medical conditions), answers questions appropriately (Does have problems with short- term memory) - Respiratory Respiratory exam: Present: CTAB. Absent: accessory muscle use, rales, rhonchi, wheezes - Cardiovascular Cardiovascular exam: Present: RRR, +S1, +S2. Absent: diastolic murmur, gallop, rubs, systolic murmur
--- NOTE | 2016-07-07 15:57 | Physician Discharge Referral ---
Home Health/Hosp Referral Info Transfer to: Home Health Attending Provider: Lynda Diamond Provider in Charge Post Discharge: PCP - Diagnosis (1) Acute encephalopathy Priority: Primary Status: Resolved (2) Chest pain Priority: Primary Status: Acute (3) CAD (coronary artery disease) Priority: Secondary Status: Chronic (4) COPD (chronic obstructive pulmonary disease) Priority: Secondary Status: Chronic (5) Diabetes mellitus Priority: Secondary Status: Chronic (6) CVA (cerebral vascular accident) Priority: Secondary Status: Chronic (7) Congestive heart failure Priority: Secondary Status: Chronic (8) PVD (peripheral vascular disease) Priority: Secondary Status: Chronic (9) DVT (deep venous thrombosis) Priority: Secondary Status: Chronic - Respiratory Orders Oxygen / L per min (2L/min) Smoking Cessation: Smoking cessation has been advised. For more information, call the [place] Tobacco Quit Line at 3-939-OFRS-NOW. - Diet/Nutrition Diet/Nutrition Orders: No Added Salt ([employer]), Cardiac, No Concentrated Sweets ( diabetic) - Activity Activity Orders: Ambulate - Services Needed Following services are medically necessary services: Nursing, Physical Therapy, Occupational Therapy - Transfer Medications Home Medications: Albuterol Sulfate [Proair Hfa] 2 puff IH Q4H PRN 06/18/16 [History] Alprazolam [Xanax 0.5 MG Tablet] 0.5 mg PO HS PRN 06/18/16 [History] Atorvastatin [Lipitor] 40 mg PO HS 06/18/16 [History] Clopidogrel [Plavix] 75 mg PO DAILY 06/18/16 [History] Docusate [Colace] 100 mg PO BID 06/18/16 [History] Fenofibrate [Lofibra] 160 mg PO DAILY 06/18/16 [History] Furosemide [Lasix] 40 mg PO DAILY 06/18/16 [History] Gabapentin [Neurontin] 400 mg PO TID 06/18/16 [History] Isosorbide MONOnitrate (24 HR) [Imdur] 60 mg PO DAILY 06/18/16 [History] Lisinopril 2.5 mg PO DAILY 06/18/16 [History] Metoprolol XL (24 HR) Succ [Toprol Xl] 50 mg PO DAILY 06/18/16 [History] Potassium Chloride [Klor-Con Sprinkle] 10 meq PO DAILY 06/18/16 [History] Ranolazine [Ranexa] 500 mg PO BID 06/18/16 [History] Rivaroxaban [Xarelto] 15 mg PO BID 20 Days 06/25/16 [Rx] Insulin DETEMIR [Levemir Flextouch] 5 unit SQ HS #1 insuln.pen 07/07/16 [Rx] Allergies/Adverse Reactions: Allergies ciprofloxacin [From Cipro] Allergy (Verified 07/05/16 16:51) Hives codeine Allergy (Verified 07/05/16 16:51) Hives insulin glargine [From Lantus] Allergy (Verified 07/05/16 16:51) Hives Certification: Further, I certify that my clinical findings support that this patient is homebound (i.e. absences from home require considerable and taxing effort and are for medical reasons or yazdanism services or infrequently or short duration when for other reasons) because: Homebound Reason: Patient requires assistance of a person or device to safely leave home, Leaving home requires considerable and taxing effort due to condition, Altered mental status requiring supervision when leaving home Attestation: My signature below is to certify that this patient is under my care and that I, or nurse practitioner, or a physician's scheduling assistant working with me, has a face-to -face encounter with this patient.
[2016-07-07] MEDS ORDERED: Insulin DETEMIR 100 UNIT/ML X5UNITS SQ SCH (21:00)
== END 2016-07-07 18:20 | disposition home health service (06) ==
LOC: 2ANU 16:04 → EMEROO 16:04 → SUATTDRO 22:01 → 2ANU 23:31
PROVIDERS: ADMIT Internal Medicine; ATTEND Internal Medicine

== ENCOUNTER 2016-08-04 16:10 | Inpatient (IN) ==
--- NOTE | 2016-08-04 16:15 | Emergency Department Note ---
Disposition Clinical Impression: Congestive heart failure Disposition: Still a Patient Condition: Serious General Adult HPI - General Stated complaint: SOB Time Seen by Provider: 08/04/16 16:12 - Related Data Home Medications Medication Instructions Recorded Confirmed Albuterol Sulfate [Proair Hfa] 2 puff IH Q4H PRN 06/18/16 08/04/16 Alprazolam [Xanax 0.5 MG Tablet] 0.5 mg PO HS PRN 06/18/16 08/04/16 Atorvastatin [Lipitor] 40 mg PO HS 06/18/16 08/04/16 Clopidogrel [Plavix] 75 mg PO DAILY 06/18/16 08/04/16 Docusate [Colace] 100 mg PO BID 06/18/16 08/04/16 Fenofibrate [Lofibra] 160 mg PO DAILY 06/18/16 08/04/16 Furosemide [Lasix] 40 mg PO DAILY 06/18/16 08/04/16 Gabapentin [Neurontin] 400 mg PO TID 06/18/16 08/04/16 Isosorbide MONOnitrate (24 HR) 60 mg PO DAILY 06/18/16 08/04/16 [Imdur] Lisinopril 2.5 mg PO DAILY 06/18/16 08/04/16 Metoprolol XL (24 HR) Succ [Toprol 50 mg PO DAILY 06/18/16 08/04/16 Xl] Potassium Chloride [Klor-Con 10 meq PO DAILY 06/18/16 08/04/16 Sprinkle] Ranolazine [Ranexa] 500 mg PO BID 06/18/16 08/04/16 Previous Rx's Medication Instructions Recorded Insulin DETEMIR [Levemir Flextouch] 5 unit SQ HS #1 insuln.pen 07/07/16 Allergies Allergy/AdvReac Type Severity Reaction Status Date / Time Onion Allergy Intermediate Swelling Verified 08/05/16 09:37 of Lip/Tongue/Throat ciprofloxacin [From Cipro] Allergy Hives Verified 08/04/16 19:26 codeine Allergy Hives Verified 08/04/16 19:26 insulin glargine Allergy Hives Verified 08/04/16 19:26 [From Lantus] aspirin AdvReac Nausea Verified 08/04/16 22:12 Past Medical History - Past Medical History Medical history: Reports: cardiomyopathy, cirrhosis, CHF, COPD, coronary artery disease, CVA, diabetes, peripheral artery disease, renal disease, TIA, other Surgical history: Reports: appendectomy, cholecystectomy, hysterectomy, orthopedic, other, other Psychiatric history: Reports: anxiety CO OP history: Reports: non-contributory - Social History Smoking Status: Current every day smoker Smokeless Tobacco Status: No Alcohol use: Reports: none Drug use: Reports: none Course Vital Signs Temperature 97.9 F 08/04/16 16:14 Pulse Rate 73 08/04/16 16:14 Respiratory Rate 24 08/04/16 16:14 Blood Pressure 122/82 08/04/16 16:14 O2 Sat by Pulse Oximetry 100 08/04/16 16:14 Temperature 97.7 F 08/09/16 07:03 Pulse Rate 64 08/09/16 07:03 Respiratory Rate 16 08/09/16 07:03 Blood Pressure 166/83 08/09/16 07:03 O2 Sat by Pulse Oximetry 94 08/09/16 07:03 Oxygen Delivery Oxygen Delivery Room Air Medical Decision Making - Lab Data Result diagrams: 08/07/16 05:37 08/09/16 03:28 Lab Results 08/04/16 08/04/16 08/04/16 Range/Units 16:56 16:56 16:56 WBC 7.5 (4.3-11.1) K/mcL RBC 3.89 (3.82-4.97) M/mcL Hgb 10.4 L (11.5-15.4) g/dL Hct 33.7 L (35.3-44.9) % MCV 86.6 (83.0-100.0) fL MCH 26.7 L (28.0-33.3) pg MCHC 30.9 L (31.6-35.5) g/dL RDW 15.7 H (11.5-14.5) % Plt Count 467 H (140-400) K/mcL MPV 8.7 L (9.4-12.4) fL Immature Gran % 0.1 (0-4) % Seg Neutrophils % 61.1 % Lymphocytes % 28.8 % Monocytes % 6.8 % Eosinophils % 2.0 % Basophils % 1.2 % Neutrophils # 4.6 (1.6-8.9) K/mcL Lymphocytes # 2.2 (0.6-4.6) K/mcL Monocytes # 0.5 (0.0-1.3) K/mcL Eosinophils # 0.2 (0.0-0.6) K/mcL Basophils # 0.1 (0.0-0.2) K/mcL PT 20.5 H (9.4-12.1) Seconds INR 1.9 APTT 40.4 H (26.0-36.0) Seconds Sodium 140 (136-145) mEq/L Potassium 4.2 (3.5-4.5) mEq/L Chloride 105 (98-109) mEq/L Carbon Dioxide 28 (19-29) mEq/L BUN 38 H (7-20) mg/dL Creatinine 1.13 H (0.57-1.11) mg/dL Est GFR ( Amer) > 60 (> 60) Est GFR (Non-Af Amer) 51 L (> 60) BUN/Creatinine Ratio 34 H (6-26) Glucose 90 (70-99) mg/dL POC Glucose (58-89) Calculated Osmolality 299 (280-300) Lactic Acid (0.5-2.2) mmol/L Calcium 8.0 L (8.6-10.8) mg/dL Phosphorus (2.3-4.7) mg/dL Magnesium (1.6-2.6) mg/dL Iron (50-170) mcg/dL % Saturation (15-50) % Transferrin (180-382) mg/dL Ferritin (5-204) ng/ml Total Bilirubin 0.3 (0.2-1.2) mg/dL Direct Bilirubin 0.2 (0.0-0.5) mg/dL Indirect Bilirubin 0.1 (0.0-1.2) mg/dL AST 28 (5-34) Units/L ALT 12 (0-55) Units/L Alkaline Phosphatase 109 (38-126) Units/L Troponin I (0-0.03) ng/mL B-Natriuretic Peptide (0-100) pg/mL Serum Total Protein 5.4 L (6.0-8.3) g/dL Albumin 1.8 L (3.5-5.0) g/dL Globulin 3.6 H (2.4-3.5) g/dL Albumin/Globulin Ratio 0.5 L (1.1-2.2) Vitamin B12 (213-816) pg/mL Folate (7.0-31.4) ng/mL Urine Color (Yellow) Urine Clarity (Clear) Urine pH (5.0-8.0) pH Units Ur Specific Carlin (1.010-1.025) Urine Protein (Neg-Trace) mg/dL Urine Glucose (UA) (Normal) mg/dL Urine Ketones (Negative) mg/dL Urine Blood (Negative) Urine Nitrite (Negative) Urine Bilirubin (Negative) Urine Urobilinogen (Normal) mg/dL Ur Leukocyte Esterase (Negative) Urine Microscopic RBC (0-3) per hpf Urine Microscopic WBC (0-3) per hpf Ur Squamous Epith Cells (None-Few) per lpf Urine Bacteria (None-Few) per hpf Hyaline Casts (None-Few) per lpf Ur Culture Indicated? (NO) Urine Total Volume (0.60-1.60) Liters Urine Creatinine mg/dL Ur Creatinine 24 Hour (0.71-1.65) g/day Ur Total Protein 24 Hr (0-299) mg/day Protein/Creatinin Ratio (0-0.20) mg/mg Urine Total Protein (1-14) mg/dL 08/04/16 08/04/16 08/04/16 Range/Units 16:56 16:56 16:56 WBC (4.3-11.1) K/mcL RBC (3.82-4.97) M/mcL Hgb (11.5-15.4) g/dL Hct (35.3-44.9) % MCV (83.0-100.0) fL MCH (28.0-33.3) pg MCHC (31.6-35.5) g/dL RDW (11.5-14.5) % Plt Count (140-400) K/mcL MPV (9.4-12.4) fL Immature Gran % (0-4) % Seg Neutrophils % % Lymphocytes % % Monocytes % % Eosinophils % % Basophils % % Neutrophils # (1.6-8.9) K/mcL Lymphocytes # (0.6-4.6) K/mcL Monocytes # (0.0-1.3) K/mcL Eosinophils # (0.0-0.6) K/mcL Basophils # (0.0-0.2) K/mcL PT (9.4-12.1) Seconds INR APTT (26.0-36.0) Seconds Sodium (136-145) mEq/L Potassium (3.5-4.5) mEq/L Chloride (98-109) mEq/L Carbon Dioxide (19-29) mEq/L BUN (7-20) mg/dL Creatinine (0.57-1.11) mg/dL Est GFR ( Amer) (> 60) Est GFR (Non-Af Amer) (> 60) BUN/Creatinine Ratio (6-26) Glucose (70-99) mg/dL POC Glucose (58-89) Calculated Osmolality (280-300) Lactic Acid 0.9 (0.5-2.2) mmol/L Calcium (8.6-10.8) mg/dL Phosphorus (2.3-4.7) mg/dL Magnesium (1.6-2.6) mg/dL Iron (50-170) mcg/dL % Saturation (15-50) % Transferrin (180-382) mg/dL Ferritin (5-204) ng/ml Total Bilirubin (0.2-1.2) mg/dL Direct Bilirubin (0.0-0.5) mg/dL Indirect Bilirubin (0.0-1.2) mg/dL AST (5-34) Units/L ALT (0-55) Units/L Alkaline Phosphatase (38-126) Units/L Troponin I 0.02 (0-0.03) ng/mL B-Natriuretic Peptide 2328 H (0-100) pg/mL Serum Total Protein (6.0-8.3) g/dL Albumin (3.5-5.0) g/dL Globulin (2.4-3.5) g/dL Albumin/Globulin Ratio (1.1-2.2) Vitamin B12 (213-816) pg/mL Folate (7.0-31.4) ng/mL Urine Color (Yellow) Urine Clarity (Clear) Urine pH (5.0-8.0) pH Units Ur Specific Carlin (1.010-1.025) Urine Protein (Neg-Trace) mg/dL Urine Glucose (UA) (Normal) mg/dL Urine Ketones (Negative) mg/dL Urine Blood (Negative) Urine Nitrite (Negative) Urine Bilirubin (Negative) Urine Urobilinogen (Normal) mg/dL Ur Leukocyte Esterase (Negative) Urine Microscopic RBC (0-3) per hpf Urine Microscopic WBC (0-3) per hpf Ur Squamous Epith Cells (None-Few) per lpf Urine Bacteria (None-Few) per hpf Hyaline Casts (None-Few) per lpf Ur Culture Indicated? (NO) Urine Total Volume (0.60-1.60) Liters Urine Creatinine mg/dL Ur Creatinine 24 Hour (0.71-1.65) g/day Ur Total Protein 24 Hr (0-299) mg/day Protein/Creatinin Ratio (0-0.20) mg/mg Urine Total Protein (1-14) mg/dL 08/04/16 08/04/16 08/05/16 Range/Units 18:00 20:44 03:25 WBC 6.8 (4.3-11.1) K/mcL RBC 4.09 (3.82-4.97) M/mcL Hgb 10.7 L (11.5-15.4) g/dL Hct 34.9 L (35.3-44.9) % MCV 85.3 (83.0-100.0) fL MCH 26.2 L (28.0-33.3) pg MCHC 30.7 L (31.6-35.5) g/dL RDW 15.7 H (11.5-14.5) % Plt Count 468 H (140-400) K/mcL MPV 9.1 L (9.4-12.4) fL Immature Gran % 0.3 (0-4) % Seg Neutrophils % 61.2 % Lymphocytes % 29.6 % Monocytes % 5.8 % Eosinophils % 1.9 % Basophils % 1.2 % Neutrophils # 4.1 (1.6-8.9) K/mcL Lymphocytes # 2.0 (0.6-4.6) K/mcL Monocytes # 0.4 (0.0-1.3) K/mcL Eosinophils # 0.1 (0.0-0.6) K/mcL Basophils # 0.1 (0.0-0.2) K/mcL PT (9.4-12.1) Seconds INR APTT (26.0-36.0) Seconds Sodium (136-145) mEq/L Potassium (3.5-4.5) mEq/L Chloride (98-109) mEq/L Carbon Dioxide (19-29) mEq/L BUN (7-20) mg/dL Creatinine (0.57-1.11) mg/dL Est GFR ( Amer) (> 60) Est GFR (Non-Af Amer) (> 60) BUN/Creatinine Ratio (6-26) Glucose (70-99) mg/dL POC Glucose 84 (58-89) Calculated Osmolality (280-300) Lactic Acid (0.5-2.2) mmol/L Calcium (8.6-10.8) mg/dL Phosphorus (2.3-4.7) mg/dL Magnesium (1.6-2.6) mg/dL Iron (50-170) mcg/dL % Saturation (15-50) % Transferrin (180-382) mg/dL Ferritin (5-204) ng/ml Total Bilirubin (0.2-1.2) mg/dL Direct Bilirubin (0.0-0.5) mg/dL Indirect Bilirubin (0.0-1.2) mg/dL AST (5-34) Units/L ALT (0-55) Units/L Alkaline Phosphatase (38-126) Units/L Troponin I (0-0.03) ng/mL B-Natriuretic Peptide (0-100) pg/mL Serum Total Protein (6.0-8.3) g/dL Albumin (3.5-5.0) g/dL Globulin (2.4-3.5) g/dL Albumin/Globulin Ratio (1.1-2.2) Vitamin B12 (213-816) pg/mL Folate (7.0-31.4) ng/mL Urine Color Yellow (Yellow) Urine Clarity Clear (Clear) Urine pH 6.0 (5.0-8.0) pH Units Ur Specific Carlin 1.017 (1.010-1.025) Urine Protein >=300 H (Neg-Trace) mg/dL Urine Glucose (UA) 100 H (Normal) mg/dL Urine Ketones Negative (Negative) mg/dL Urine Blood Moderate H (Negative) Urine Nitrite Negative (Negative) Urine Bilirubin Negative (Negative) Urine Urobilinogen Normal (Normal) mg/dL Ur Leukocyte Esterase Negative (Negative) Urine Microscopic RBC 5-15 H (0-3) per hpf Urine Microscopic WBC 3-5 H (0-3) per hpf Ur Squamous Epith Cells Many H (None-Few) per lpf Urine Bacteria None Seen (None-Few) per hpf Hyaline Casts None Seen (None-Few) per lpf Ur Culture Indicated? NO (NO) Urine Total Volume (0.60-1.60) Liters Urine Creatinine mg/dL Ur Creatinine 24 Hour (0.71-1.65) g/day Ur Total Protein 24 Hr (0-299) mg/day Protein/Creatinin Ratio (0-0.20) mg/mg Urine Total Protein (1-14) mg/dL 08/05/16 08/05/16 08/05/16 Range/Units 03:25 07:05 09:20 WBC (4.3-11.1) K/mcL RBC (3.82-4.97) M/mcL Hgb (11.5-15.4) g/dL Hct (35.3-44.9) % MCV (83.0-100.0) fL MCH (28.0-33.3) pg MCHC (31.6-35.5) g/dL RDW (11.5-14.5) % Plt Count (140-400) K/mcL MPV (9.4-12.4) fL Immature Gran % (0-4) % Seg Neutrophils % % Lymphocytes % % Monocytes % % Eosinophils % % Basophils % % Neutrophils # (1.6-8.9) K/mcL Lymphocytes # (0.6-4.6) K/mcL Monocytes # (0.0-1.3) K/mcL Eosinophils # (0.0-0.6) K/mcL Basophils # (0.0-0.2) K/mcL PT (9.4-12.1) Seconds INR APTT 36.1 H (26.0-36.0) Seconds Sodium 139 (136-145) mEq/L Potassium 4.4 (3.5-4.5) mEq/L Chloride 105 (98-109) mEq/L Carbon Dioxide 28 (19-29) mEq/L BUN 41 H (7-20) mg/dL Creatinine 1.07 (0.57-1.11) mg/dL Est GFR ( Amer) > 60 (> 60) Est GFR (Non-Af Amer) 55 L (> 60) BUN/Creatinine Ratio 38 H (6-26) Glucose 107 H (70-99) mg/dL POC Glucose 103 H (58-89) Calculated Osmolality 299 (280-300) Lactic Acid (0.5-2.2) mmol/L Calcium 8.0 L (8.6-10.8) mg/dL Phosphorus (2.3-4.7) mg/dL Magnesium (1.6-2.6) mg/dL Iron (50-170) mcg/dL % Saturation (15-50) % Transferrin (180-382) mg/dL Ferritin (5-204) ng/ml Total Bilirubin (0.2-1.2) mg/dL Direct Bilirubin (0.0-0.5) mg/dL Indirect Bilirubin (0.0-1.2) mg/dL AST (5-34) Units/L ALT (0-55) Units/L Alkaline Phosphatase (38-126) Units/L Troponin I (0-0.03) ng/mL B-Natriuretic Peptide (0-100) pg/mL Serum Total Protein (6.0-8.3) g/dL Albumin (3.5-5.0) g/dL Globulin (2.4-3.5) g/dL Albumin/Globulin Ratio (1.1-2.2) Vitamin B12 (213-816) pg/mL Folate (7.0-31.4) ng/mL Urine Color (Yellow) Urine Clarity (Clear) Urine pH (5.0-8.0) pH Units Ur Specific Carlin (1.010-1.025) Urine Protein (Neg-Trace) mg/dL Urine Glucose (UA) (Normal) mg/dL Urine Ketones (Negative) mg/dL Urine Blood (Negative) Urine Nitrite (Negative) Urine Bilirubin (Negative) Urine Urobilinogen (Normal) mg/dL Ur Leukocyte Esterase (Negative) Urine Microscopic RBC (0-3) per hpf Urine Microscopic WBC (0-3) per hpf Ur Squamous Epith Cells (None-Few) per lpf Urine Bacteria (None-Few) per hpf Hyaline Casts (None-Few) per lpf Ur Culture Indicated? (NO) Urine Total Volume (0.60-1.60) Liters Urine Creatinine mg/dL Ur Creatinine 24 Hour (0.71-1.65) g/day Ur Total Protein 24 Hr (0-299) mg/day Protein/Creatinin Ratio (0-0.20) mg/mg Urine Total Protein (1-14) mg/dL 08/05/16 08/05/16 08/05/16 Range/Units 11:55 16:49 19:39 WBC (4.3-11.1) K/mcL RBC (3.82-4.97) M/mcL Hgb (11.5-15.4) g/dL Hct (35.3-44.9) % MCV (83.0-100.0) fL MCH (28.0-33.3) pg MCHC (31.6-35.5) g/dL RDW (11.5-14.5) % Plt Count (140-400) K/mcL MPV (9.4-12.4) fL Immature Gran % (0-4) % Seg Neutrophils % % Lymphocytes % % Monocytes % % Eosinophils % % Basophils % % Neutrophils # (1.6-8.9) K/mcL Lymphocytes # (0.6-4.6) K/mcL Monocytes # (0.0-1.3) K/mcL Eosinophils # (0.0-0.6) K/mcL Basophils # (0.0-0.2) K/mcL PT (9.4-12.1) Seconds INR APTT (26.0-36.0) Seconds Sodium (136-145) mEq/L Potassium (3.5-4.5) mEq/L Chloride (98-109) mEq/L Carbon Dioxide (19-29) mEq/L BUN (7-20) mg/dL Creatinine (0.57-1.11) mg/dL Est GFR ( Amer) (> 60) Est GFR (Non-Af Amer) (> 60) BUN/Creatinine Ratio (6-26) Glucose (70-99) mg/dL POC Glucose 146 H 210 H 172 H (58-89) Calculated Osmolality (280-300) Lactic Acid (0.5-2.2) mmol/L Calcium (8.6-10.8) mg/dL Phosphorus (2.3-4.7) mg/dL Magnesium (1.6-2.6) mg/dL Iron (50-170) mcg/dL % Saturation (15-50) % Transferrin (180-382) mg/dL Ferritin (5-204) ng/ml Total Bilirubin (0.2-1.2) mg/dL Direct Bilirubin (0.0-0.5) mg/dL Indirect Bilirubin (0.0-1.2) mg/dL AST (5-34) Units/L ALT (0-55) Units/L Alkaline Phosphatase (38-126) Units/L Troponin I (0-0.03) ng/mL B-Natriuretic Peptide (0-100) pg/mL Serum Total Protein (6.0-8.3) g/dL Albumin (3.5-5.0) g/dL Globulin (2.4-3.5) g/dL Albumin/Globulin Ratio (1.1-2.2) Vitamin B12 (213-816) pg/mL Folate (7.0-31.4) ng/mL Urine Color (Yellow) Urine Clarity (Clear) Urine pH (5.0-8.0) pH Units Ur Specific Carlin (1.010-1.025) Urine Protein (Neg-Trace) mg/dL Urine Glucose (UA) (Normal) mg/dL Urine Ketones (Negative) mg/dL Urine Blood (Negative) Urine Nitrite (Negative) Urine Bilirubin (Negative) Urine Urobilinogen (Normal) mg/dL Ur Leukocyte Esterase (Negative) Urine Microscopic RBC (0-3) per hpf Urine Microscopic WBC (0-3) per hpf Ur Squamous Epith Cells (None-Few) per lpf Urine Bacteria (None-Few) per hpf Hyaline Casts (None-Few) per lpf Ur Culture Indicated? (NO) Urine Total Volume (0.60-1.60) Liters Urine Creatinine mg/dL Ur Creatinine 24 Hour (0.71-1.65) g/day Ur Total Protein 24 Hr (0-299) mg/day Protein/Creatinin Ratio (0-0.20) mg/mg Urine Total Protein (1-14) mg/dL 08/06/16 08/06/16 08/06/16 Range/Units 04:49 07:44 11:45 WBC (4.3-11.1) K/mcL RBC (3.82-4.97) M/mcL Hgb (11.5-15.4) g/dL Hct (35.3-44.9) % MCV (83.0-100.0) fL MCH (28.0-33.3) pg MCHC (31.6-35.5) g/dL RDW (11.5-14.5) % Plt Count (140-400) K/mcL MPV (9.4-12.4) fL Immature Gran % (0-4) % Seg Neutrophils % % Lymphocytes % % Monocytes % % Eosinophils % % Basophils % % Neutrophils # (1.6-8.9) K/mcL Lymphocytes # (0.6-4.6) K/mcL Monocytes # (0.0-1.3) K/mcL Eosinophils # (0.0-0.6) K/mcL Basophils # (0.0-0.2) K/mcL PT (9.4-12.1) Seconds INR APTT (26.0-36.0) Seconds Sodium 136 (136-145) mEq/L Potassium 4.5 (3.5-4.5) mEq/L Chloride 102 (98-109) mEq/L Carbon Dioxide 25 (19-29) mEq/L BUN 48 H (7-20) mg/dL Creatinine 1.35 H (0.57-1.11) mg/dL Est GFR ( Amer) 51 L (> 60) Est GFR (Non-Af Amer) 42 L (> 60) BUN/Creatinine Ratio 36 H (6-26) Glucose 166 H (70-99) mg/dL POC Glucose 218 H 136 H (58-89) Calculated Osmolality 298 (280-300) Lactic Acid (0.5-2.2) mmol/L Calcium 7.9 L (8.6-10.8) mg/dL Phosphorus (2.3-4.7) mg/dL Magnesium 1.3 L (1.6-2.6) mg/dL Iron (50-170) mcg/dL % Saturation (15-50) % Transferrin (180-382) mg/dL Ferritin (5-204) ng/ml Total Bilirubin (0.2-1.2) mg/dL Direct Bilirubin (0.0-0.5) mg/dL Indirect Bilirubin (0.0-1.2) mg/dL AST (5-34) Units/L ALT (0-55) Units/L Alkaline Phosphatase (38-126) Units/L Troponin I (0-0.03) ng/mL B-Natriuretic Peptide (0-100) pg/mL Serum Total Protein (6.0-8.3) g/dL Albumin (3.5-5.0) g/dL Globulin (2.4-3.5) g/dL Albumin/Globulin Ratio (1.1-2.2) Vitamin B12 (213-816) pg/mL Folate (7.0-31.4) ng/mL Urine Color (Yellow) Urine Clarity (Clear) Urine pH (5.0-8.0) pH Units Ur Specific Carlin (1.010-1.025) Urine Protein (Neg-Trace) mg/dL Urine Glucose (UA) (Normal) mg/dL Urine Ketones (Negative) mg/dL Urine Blood (Negative) Urine Nitrite (Negative) Urine Bilirubin (Negative) Urine Urobilinogen (Normal) mg/dL Ur Leukocyte Esterase (Negative) Urine Microscopic RBC (0-3) per hpf Urine Microscopic WBC (0-3) per hpf Ur Squamous Epith Cells (None-Few) per lpf Urine Bacteria (None-Few) per hpf Hyaline Casts (None-Few) per lpf Ur Culture Indicated? (NO) Urine Total Volume (0.60-1.60) Liters Urine Creatinine mg/dL Ur Creatinine 24 Hour (0.71-1.65) g/day Ur Total Protein 24 Hr (0-299) mg/day Protein/Creatinin Ratio (0-0.20) mg/mg Urine Total Protein (1-14) mg/dL 08/06/16 08/06/16 08/07/16 Range/Units 15:46 19:44 05:37 WBC 5.6 (4.3-11.1) K/mcL RBC 3.47 L (3.82-4.97) M/mcL Hgb 9.3 L (11.5-15.4) g/dL Hct 29.5 L (35.3-44.9) % MCV 85.0 (83.0-100.0) fL MCH 26.8 L (28.0-33.3) pg MCHC 31.5 L (31.6-35.5) g/dL RDW 15.6 H (11.5-14.5) % Plt Count 353 (140-400) K/mcL MPV 9.1 L (9.4-12.4) fL Immature Gran % 0.4 (0-4) % Seg Neutrophils % 60.1 % Lymphocytes % 28.3 % Monocytes % 7.1 % Eosinophils % 3.0 % Basophils % 1.1 % Neutrophils # 3.4 (1.6-8.9) K/mcL Lymphocytes # 1.6 (0.6-4.6) K/mcL Monocytes # 0.4 (0.0-1.3) K/mcL Eosinophils # 0.2 (0.0-0.6) K/mcL Basophils # 0.1 (0.0-0.2) K/mcL PT (9.4-12.1) Seconds INR APTT (26.0-36.0) Seconds Sodium (136-145) mEq/L Potassium (3.5-4.5) mEq/L Chloride (98-109) mEq/L Carbon Dioxide (19-29) mEq/L BUN (7-20) mg/dL Creatinine (0.57-1.11) mg/dL Est GFR ( Amer) (> 60) Est GFR (Non-Af Amer) (> 60) BUN/Creatinine Ratio (6-26) Glucose (70-99) mg/dL POC Glucose 168 H 214 H (58-89) Calculated Osmolality (280-300) Lactic Acid (0.5-2.2) mmol/L Calcium (8.6-10.8) mg/dL Phosphorus (2.3-4.7) mg/dL Magnesium (1.6-2.6) mg/dL Iron (50-170) mcg/dL % Saturation (15-50) % Transferrin (180-382) mg/dL Ferritin (5-204) ng/ml Total Bilirubin (0.2-1.2) mg/dL Direct Bilirubin (0.0-0.5) mg/dL Indirect Bilirubin (0.0-1.2) mg/dL AST (5-34) Units/L ALT (0-55) Units/L Alkaline Phosphatase (38-126) Units/L Troponin I (0-0.03) ng/mL B-Natriuretic Peptide (0-100) pg/mL Serum Total Protein (6.0-8.3) g/dL Albumin (3.5-5.0) g/dL Globulin (2.4-3.5) g/dL Albumin/Globulin Ratio (1.1-2.2) Vitamin B12 (213-816) pg/mL Folate (7.0-31.4) ng/mL Urine Color (Yellow) Urine Clarity (Clear) Urine pH (5.0-8.0) pH Units Ur Specific Carlin (1.010-1.025) Urine Protein (Neg-Trace) mg/dL Urine Glucose (UA) (Normal) mg/dL Urine Ketones (Negative) mg/dL Urine Blood (Negative) Urine Nitrite (Negative) Urine Bilirubin (Negative) Urine Urobilinogen (Normal) mg/dL Ur Leukocyte Esterase (Negative) Urine Microscopic RBC (0-3) per hpf Urine Microscopic WBC (0-3) per hpf Ur Squamous Epith Cells (None-Few) per lpf Urine Bacteria (None-Few) per hpf Hyaline Casts (None-Few) per lpf Ur Culture Indicated? (NO) Urine Total Volume (0.60-1.60) Liters Urine Creatinine mg/dL Ur Creatinine 24 Hour (0.71-1.65) g/day Ur Total Protein 24 Hr (0-299) mg/day Protein/Creatinin Ratio (0-0.20) mg/mg Urine Total Protein (1-14) mg/dL 08/07/16 08/07/16 08/07/16 Range/Units 05:37 07:35 11:25 WBC (4.3-11.1) K/mcL RBC (3.82-4.97) M/mcL Hgb (11.5-15.4) g/dL Hct (35.3-44.9) % MCV (83.0-100.0) fL MCH (28.0-33.3) pg MCHC (31.6-35.5) g/dL RDW (11.5-14.5) % Plt Count (140-400) K/mcL MPV (9.4-12.4) fL Immature Gran % (0-4) % Seg Neutrophils % % Lymphocytes % % Monocytes % % Eosinophils % % Basophils % % Neutrophils # (1.6-8.9) K/mcL Lymphocytes # (0.6-4.6) K/mcL Monocytes # (0.0-1.3) K/mcL Eosinophils # (0.0-0.6) K/mcL Basophils # (0.0-0.2) K/mcL PT (9.4-12.1) Seconds INR APTT (26.0-36.0) Seconds Sodium 138 (136-145) mEq/L Potassium 4.4 (3.5-4.5) mEq/L Chloride 100 (98-109) mEq/L Carbon Dioxide 32 H (19-29) mEq/L BUN 55 H (7-20) mg/dL Creatinine 1.53 H (0.57-1.11) mg/dL Est GFR ( Amer) 44 L (> 60) Est GFR (Non-Af Amer) 36 L (> 60) BUN/Creatinine Ratio 36 H (6-26) Glucose 137 H (70-99) mg/dL POC Glucose 134 H 273 H (58-89) Calculated Osmolality 303 H (280-300) Lactic Acid (0.5-2.2) mmol/L Calcium 7.9 L (8.6-10.8) mg/dL Phosphorus 5.0 H (2.3-4.7) mg/dL Magnesium 1.8 (1.6-2.6) mg/dL Iron (50-170) mcg/dL % Saturation (15-50) % Transferrin (180-382) mg/dL Ferritin (5-204) ng/ml Total Bilirubin 0.3 (0.2-1.2) mg/dL Direct Bilirubin (0.0-0.5) mg/dL Indirect Bilirubin (0.0-1.2) mg/dL AST 17 (5-34) Units/L ALT 8 (0-55) Units/L Alkaline Phosphatase 84 (38-126) Units/L Troponin I (0-0.03) ng/mL B-Natriuretic Peptide (0-100) pg/mL Serum Total Protein 5.1 L (6.0-8.3) g/dL Albumin 2.3 L D (3.5-5.0) g/dL Globulin 2.8 (2.4-3.5) g/dL Albumin/Globulin Ratio 0.8 L (1.1-2.2) Vitamin B12 (213-816) pg/mL Folate (7.0-31.4) ng/mL Urine Color (Yellow) Urine Clarity (Clear) Urine pH (5.0-8.0) pH Units Ur Specific Carlin (1.010-1.025) Urine Protein (Neg-Trace) mg/dL Urine Glucose (UA) (Normal) mg/dL Urine Ketones (Negative) mg/dL Urine Blood (Negative) Urine Nitrite (Negative) Urine Bilirubin (Negative) Urine Urobilinogen (Normal) mg/dL Ur Leukocyte Esterase (Negative) Urine Microscopic RBC (0-3) per hpf Urine Microscopic WBC (0-3) per hpf Ur Squamous Epith Cells (None-Few) per lpf Urine Bacteria (None-Few) per hpf Hyaline Casts (None-Few) per lpf Ur Culture Indicated? (NO) Urine Total Volume (0.60-1.60) Liters Urine Creatinine mg/dL Ur Creatinine 24 Hour (0.71-1.65) g/day Ur Total Protein 24 Hr (0-299) mg/day Protein/Creatinin Ratio (0-0.20) mg/mg Urine Total Protein (1-14) mg/dL 08/07/16 08/07/16 08/07/16 Range/Units 15:30 16:35 20:26 WBC (4.3-11.1) K/mcL RBC (3.82-4.97) M/mcL Hgb (11.5-15.4) g/dL Hct (35.3-44.9) % MCV (83.0-100.0) fL MCH (28.0-33.3) pg MCHC (31.6-35.5) g/dL RDW (11.5-14.5) % Plt Count (140-400) K/mcL MPV (9.4-12.4) fL Immature Gran % (0-4) % Seg Neutrophils % % Lymphocytes % % Monocytes % % Eosinophils % % Basophils % % Neutrophils # (1.6-8.9) K/mcL Lymphocytes # (0.6-4.6) K/mcL Monocytes # (0.0-1.3) K/mcL Eosinophils # (0.0-0.6) K/mcL Basophils # (0.0-0.2) K/mcL PT (9.4-12.1) Seconds INR APTT (26.0-36.0) Seconds Sodium (136-145) mEq/L Potassium (3.5-4.5) mEq/L Chloride (98-109) mEq/L Carbon Dioxide (19-29) mEq/L BUN (7-20) mg/dL Creatinine (0.57-1.11) mg/dL Est GFR ( Amer) (> 60) Est GFR (Non-Af Amer) (> 60) BUN/Creatinine Ratio (6-26) Glucose (70-99) mg/dL POC Glucose 139 H 210 H (58-89) Calculated Osmolality (280-300) Lactic Acid (0.5-2.2) mmol/L Calcium (8.6-10.8) mg/dL Phosphorus (2.3-4.7) mg/dL Magnesium (1.6-2.6) mg/dL Iron (50-170) mcg/dL % Saturation (15-50) % Transferrin (180-382) mg/dL Ferritin (5-204) ng/ml Total Bilirubin (0.2-1.2) mg/dL Direct Bilirubin (0.0-0.5) mg/dL Indirect Bilirubin (0.0-1.2) mg/dL AST (5-34) Units/L ALT (0-55) Units/L Alkaline Phosphatase (38-126) Units/L Troponin I (0-0.03) ng/mL B-Natriuretic Peptide (0-100) pg/mL Serum Total Protein (6.0-8.3) g/dL Albumin (3.5-5.0) g/dL Globulin (2.4-3.5) g/dL Albumin/Globulin Ratio (1.1-2.2) Vitamin B12 (213-816) pg/mL Folate (7.0-31.4) ng/mL Urine Color (Yellow) Urine Clarity (Clear) Urine pH (5.0-8.0) pH Units Ur Specific Carlin (1.010-1.025) Urine Protein (Neg-Trace) mg/dL Urine Glucose (UA) (Normal) mg/dL Urine Ketones (Negative) mg/dL Urine Blood (Negative) Urine Nitrite (Negative) Urine Bilirubin (Negative) Urine Urobilinogen (Normal) mg/dL Ur Leukocyte Esterase (Negative) Urine Microscopic RBC (0-3) per hpf Urine Microscopic WBC (0-3) per hpf Ur Squamous Epith Cells (None-Few) per lpf Urine Bacteria (None-Few) per hpf Hyaline Casts (None-Few) per lpf Ur Culture Indicated? (NO) Urine Total Volume 2.20 H (0.60-1.60) Liters Urine Creatinine 19 mg/dL Ur Creatinine 24 Hour 0.42 L (0.71-1.65) g/day Ur Total Protein 24 Hr 2442 H (0-299) mg/day Protein/Creatinin Ratio 5.84 H (0-0.20) mg/mg Urine Total Protein 111 H (1-14) mg/dL 08/08/16 08/08/16 08/08/16 Range/Units 04:16 04:16 07:35 WBC (4.3-11.1) K/mcL RBC (3.82-4.97) M/mcL Hgb (11.5-15.4) g/dL Hct (35.3-44.9) % MCV (83.0-100.0) fL MCH (28.0-33.3) pg MCHC (31.6-35.5) g/dL RDW (11.5-14.5) % Plt Count (140-400) K/mcL MPV (9.4-12.4) fL Immature Gran % (0-4) % Seg Neutrophils % % Lymphocytes % % Monocytes % % Eosinophils % % Basophils % % Neutrophils # (1.6-8.9) K/mcL Lymphocytes # (0.6-4.6) K/mcL Monocytes # (0.0-1.3) K/mcL Eosinophils # (0.0-0.6) K/mcL Basophils # (0.0-0.2) K/mcL PT (9.4-12.1) Seconds INR APTT (26.0-36.0) Seconds Sodium 139 (136-145) mEq/L Potassium 4.7 H (3.5-4.5) mEq/L Chloride 99 (98-109) mEq/L Carbon Dioxide 30 H (19-29) mEq/L BUN 62 H (7-20) mg/dL Creatinine 1.68 H (0.57-1.11) mg/dL Est GFR ( Amer) 39 L (> 60) Est GFR (Non-Af Amer) 33 L (> 60) BUN/Creatinine Ratio 37 H (6-26) Glucose 116 H (70-99) mg/dL POC Glucose 139 H (58-89) Calculated Osmolality 307 H (280-300) Lactic Acid (0.5-2.2) mmol/L Calcium 8.3 L (8.6-10.8) mg/dL Phosphorus 4.8 H (2.3-4.7) mg/dL Magnesium 2.0 (1.6-2.6) mg/dL Iron 39 L (50-170) mcg/dL % Saturation 14 L (15-50) % Transferrin 205 (180-382) mg/dL Ferritin 160 (5-204) ng/ml Total Bilirubin (0.2-1.2) mg/dL Direct Bilirubin (0.0-0.5) mg/dL Indirect Bilirubin (0.0-1.2) mg/dL AST (5-34) Units/L ALT (0-55) Units/L Alkaline Phosphatase (38-126) Units/L Troponin I (0-0.03) ng/mL B-Natriuretic Peptide (0-100) pg/mL Serum Total Protein (6.0-8.3) g/dL Albumin 2.9 L D (3.5-5.0) g/dL Globulin (2.4-3.5) g/dL Albumin/Globulin Ratio (1.1-2.2) Vitamin B12 430 (213-816) pg/mL Folate 7.8 (7.0-31.4) ng/mL Urine Color (Yellow) Urine Clarity (Clear) Urine pH (5.0-8.0) pH Units Ur Specific [place] (1.010-1.025) Urine Protein (Neg-Trace) mg/dL Urine Glucose (UA) (Normal) mg/dL Urine Ketones (Negative) mg/dL Urine Blood (Negative) Urine Nitrite (Negative) Urine Bilirubin (Negative) Urine Urobilinogen (Normal) mg/dL Ur Leukocyte Esterase (Negative) Urine Microscopic RBC (0-3) per hpf Urine Microscopic WBC (0-3) per hpf Ur Squamous Epith Cells (None-Few) per lpf Urine Bacteria (None-Few) per hpf Hyaline Casts (None-Few) per lpf Ur Culture Indicated? (NO) Urine Total Volume (0.60-1.60) Liters Urine Creatinine mg/dL Ur Creatinine 24 Hour (0.71-1.65) g/day Ur Total Protein 24 Hr (0-299) mg/day Protein/Creatinin Ratio (0-0.20) mg/mg Urine Total Protein (1-14) mg/dL 08/08/16 Range/Units 11:15 WBC (4.3-11.1) K/mcL RBC (3.82-4.97) M/mcL Hgb (11.5-15.4) g/dL Hct (35.3-44.9) % MCV (83.0-100.0) fL MCH (28.0-33.3) pg MCHC (31.6-35.5) g/dL RDW (11.5-14.5) % Plt Count (140-400) K/mcL MPV (9.4-12.4) fL Immature Gran % (0-4) % Seg Neutrophils % % Lymphocytes % % Monocytes % % Eosinophils % % Basophils % % Neutrophils # (1.6-8.9) K/mcL Lymphocytes # (0.6-4.6) K/mcL Monocytes # (0.0-1.3) K/mcL Eosinophils # (0.0-0.6) K/mcL Basophils # (0.0-0.2) K/mcL PT (9.4-12.1) Seconds INR APTT (26.0-36.0) Seconds Sodium (136-145) mEq/L Potassium (3.5-4.5) mEq/L Chloride (98-109) mEq/L Carbon Dioxide (19-29) mEq/L BUN (7-20) mg/dL Creatinine (0.57-1.11) mg/dL Est GFR ( Amer) (> 60) Est GFR (Non-Af Amer) (> 60) BUN/Creatinine Ratio (6-26) Glucose (70-99) mg/dL POC Glucose 194 H (58-89) Calculated Osmolality (280-300) Lactic Acid (0.5-2.2) mmol/L Calcium (8.6-10.8) mg/dL Phosphorus (2.3-4.7) mg/dL Magnesium (1.6-2.6) mg/dL Iron (50-170) mcg/dL % Saturation (15-50) % Transferrin (180-382) mg/dL Ferritin (5-204) ng/ml Total Bilirubin (0.2-1.2) mg/dL Direct Bilirubin (0.0-0.5) mg/dL Indirect Bilirubin (0.0-1.2) mg/dL AST (5-34) Units/L ALT (0-55) Units/L Alkaline Phosphatase (38-126) Units/L Troponin I (0-0.03) ng/mL B-Natriuretic Peptide (0-100) pg/mL Serum Total Protein (6.0-8.3) g/dL Albumin (3.5-5.0) g/dL Globulin (2.4-3.5) g/dL Albumin/Globulin Ratio (1.1-2.2) Vitamin B12 (213-816) pg/mL Folate (7.0-31.4) ng/mL Urine Color (Yellow) Urine Clarity (Clear) Urine pH (5.0-8.0) pH Units Ur Specific [place] (1.010-1.025) Urine Protein (Neg-Trace) mg/dL Urine Glucose (UA) (Normal) mg/dL Urine Ketones (Negative) mg/dL Urine Blood (Negative) Urine Nitrite (Negative) Urine Bilirubin (Negative) Urine Urobilinogen (Normal) mg/dL Ur Leukocyte Esterase (Negative) Urine Microscopic RBC (0-3) per hpf Urine Microscopic WBC (0-3) per hpf Ur Squamous Epith Cells (None-Few) per lpf Urine Bacteria (None-Few) per hpf Hyaline Casts (None-Few) per lpf Ur Culture Indicated? (NO) Urine Total Volume (0.60-1.60) Liters Urine Creatinine mg/dL Ur Creatinine 24 Hour (0.71-1.65) g/day Ur Total Protein 24 Hr (0-299) mg/day Protein/Creatinin Ratio (0-0.20) mg/mg Urine Total Protein (1-14) mg/dL Attestation Statement - Attestation Attestation: I examined this patient and my medical decision-making was reviewed with the RIGGING MAN/PA/Advanced Practice Nurse/Resident Physician. I agree with the documented findings, disposition and treatment plan as described except to the extent set forth below. Eawp-ko-aelf time provided Patient complains of dyspnea, N/V/D. She presents via EMS. She has a history of non-oxygen dependent COPD. She appears older than stated age on exam. Patient seen and evaluated in conjunction with the resident physician Dr. Best
--- NOTE | 2016-08-04 16:29 | Emergency Department Note ---
Disposition Clinical Impression: Congestive heart failure Qualifiers: Congestive heart failure type: unspecified congestive heart failure type Congestive heart failure chronicity: acute Qualified Code(s): I50.9 - Heart failure, unspecified Disposition: Still a Patient Condition: Serious Referrals: NO,PCP [Primary Care Provider] - Forms: ED Satisfaction Letter Time of Disposition: 18:28 SOB HPI - General Chief Complaint: ED Shortness of Breath/Dyspnea Stated Complaint: SOB Time Seen by Provider: 08/04/16 16:12 Source: patient, EMS Mode of arrival: EMS Limitations: no limitations Nursing Notes Reviewed: Yes Vital Signs Reviewed: Yes - History of Present Illness Patient presents to the ED at the chief complaint of shortness of breath. Patient states has a history of CHF. She does not have oxygen at home and states that she has been getting progressively more short of breath over the last several weeks, but significantly more worse since last night. States like she is being smothered or drowning. She does have some chest discomfort but states it is more has of the swelling. She is had a significant increase in the swelling in her legs and a nonproductive cough. No fever or chills. She also has had some abdominal pain but states it is from the swelling and not pain. She no nausea or vomiting. She is unsure of any medication she is on, but does know she is on a blood thinner for stent and her heart and in her left upper extremity, which she has a blood clot. - Related Data Home Medications Medication Instructions Recorded Confirmed Albuterol Sulfate [Proair Hfa] 2 puff IH Q4H PRN 06/18/16 07/05/16 Alprazolam [Xanax 0.5 MG Tablet] 0.5 mg PO HS PRN 06/18/16 07/05/16 Atorvastatin [Lipitor] 40 mg PO HS 06/18/16 07/05/16 Clopidogrel [Plavix] 75 mg PO DAILY 06/18/16 07/05/16 Docusate [Colace] 100 mg PO BID 06/18/16 06/18/16 Fenofibrate [Lofibra] 160 mg PO DAILY 06/18/16 07/05/16 Furosemide [Lasix] 40 mg PO DAILY 06/18/16 07/05/16 Gabapentin [Neurontin] 400 mg PO TID 06/18/16 06/18/16 Isosorbide MONOnitrate (24 HR) 60 mg PO DAILY 06/18/16 07/05/16 [Imdur] Lisinopril 2.5 mg PO DAILY 06/18/16 07/05/16 Metoprolol XL (24 HR) Succ [Toprol 50 mg PO DAILY 06/18/16 07/05/16 Xl] Potassium Chloride [Klor-Con 10 meq PO DAILY 06/18/16 07/05/16 Sprinkle] Ranolazine [Ranexa] 500 mg PO BID 06/18/16 07/05/16 Previous Rx's Medication Instructions Recorded Rivaroxaban [Xarelto] 15 mg PO BID 20 Days 06/25/16 Insulin DETEMIR [Levemir Flextouch] 5 unit SQ HS #1 insuln.pen 07/07/16 Allergies Allergy/AdvReac Type Severity Reaction Status Date / Time ciprofloxacin [From Cipro] Allergy Hives Verified 07/05/16 16:51 codeine Allergy Hives Verified 07/05/16 16:51 insulin glargine Allergy Hives Verified 07/05/16 16:51 [From Lantus] All systems ED: reviewed and negative except as stated. Cardiovascular: Reports: chest pain, dyspnea on exertion, edema Respiratory: Reports: cough, dyspnea Endocrine: Reports: fatigue Past Medical History - Past Medical History Attestation: Yes The following information was validated with the patient. 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 - Social History Smoking Status: Current every day smoker Smokeless Tobacco Status: No Alcohol use: Reports: none Drug use: Reports: none Physical Exam - General Limitations: no limitations General appearance: alert, in distress (resp distress), obese - Head Head exam: atraumatic, normocephalic, normal inspection - Eye Eye exam: Present: normal appearance, PERRL, EOMI - ENT ENT exam: normal exam, normal oropharynx, mucous membranes moist - Neck Neck exam: Present: normal inspection, full ROM, trachea midline - Chest Chest inspection: Present: normal inspection, symmetric chest wall rise - Respiratory Respiratory exam: Present: respiratory distress (moderate with accessory muscle use and tachypnea ), other (Patient has coarse rales throughout all lung muñoz) . Absent: normal lung sounds bilaterally - Cardiovascular Cardiovascular exam: Present: regular rate, normal rhythm, normal heart sounds - Abdominal Exam Abdominal exam: Present: soft, Non-Tender, distention - Extremities Exam Extremities exam: Present: pedal edema (Very significant edema that is pitting and weeping) - Neurological Exam Neurological exam: Present: alert, oriented X3, other (Patient is very dyspneic. Able to speak in 1-2 word sentences) - Skin Skin exam: Present: warm, dry, intact, normal color Course Course Narrative: Patient is very dyspneic with a history of CHF. Seems to be in overt failure. Recommended BiPAP. However, the patient refused. Discussed that this may lead to intubation and she was aware. We will try medical therapy. Patient will need to be admitted once labs are back - Reevaluation(s) Reevaluation #1: Labs are back. Consistent with CHF. Patient refuses BiPAP. She was given Lasix. Will admit. Still working fairly hard to breathe, although was declining any sedation, to use BiPAP at this time. Vital Signs Temperature 97.9 F 08/04/16 16:14 Pulse Rate 73 08/04/16 16:14 Respiratory Rate 24 08/04/16 16:14 Blood Pressure 122/82 08/04/16 16:14 O2 Sat by Pulse Oximetry 100 08/04/16 16:14 Temperature 97.9 F 08/04/16 16:14 Pulse Rate 69 08/04/16 18:23 Respiratory Rate 20 08/04/16 18:23 Blood Pressure 135/82 08/04/16 18:23 O2 Sat by Pulse Oximetry 100 08/04/16 18:23 Oxygen Delivery Oxygen Delivery Nasal Cannula Shortness of Breath/Dyspnea - Medical Records Medical records reviewed: Yes I reviewed the patient's medical records. - Lab Data Lab results reviewed: Yes I reviewed the patient's lab results. Result diagrams: 08/04/16 16:56 08/04/16 16:56 Lab Results 08/04/16 08/04/16 08/04/16 Range/Units 16:56 16:56 16:56 WBC 7.5 (4.3-11.1) K/mcL RBC 3.89 (3.82-4.97) M/mcL Hgb 10.4 L (11.5-15.4) g/dL Hct 33.7 L (35.3-44.9) % MCV 86.6 (83.0-100.0) fL MCH 26.7 L (28.0-33.3) pg MCHC 30.9 L (31.6-35.5) g/dL RDW 15.7 H (11.5-14.5) % Plt Count 467 H (140-400) K/mcL MPV 8.7 L (9.4-12.4) fL Immature Gran % 0.1 (0-4) % Seg Neutrophils % 61.1 % Lymphocytes % 28.8 % Monocytes % 6.8 % Eosinophils % 2.0 % Basophils % 1.2 % Neutrophils # 4.6 (1.6-8.9) K/mcL Lymphocytes # 2.2 (0.6-4.6) K/mcL Monocytes # 0.5 (0.0-1.3) K/mcL Eosinophils # 0.2 (0.0-0.6) K/mcL Basophils # 0.1 (0.0-0.2) K/mcL PT 20.5 H (9.4-12.1) Seconds INR 1.9 APTT 40.4 H (26.0-36.0) Seconds Sodium 140 (136-145) mEq/L Potassium 4.2 (3.5-4.5) mEq/L Chloride 105 (98-109) mEq/L Carbon Dioxide 28 (19-29) mEq/L BUN 38 H (7-20) mg/dL Creatinine 1.13 H (0.57-1.11) mg/dL Est GFR ( Amer) > 60 (> 60) Est GFR (Non-Af Amer) 51 L (> 60) BUN/Creatinine Ratio 34 H (6-26) Glucose 90 (70-99) mg/dL Calculated Osmolality 299 (280-300) Lactic Acid (0.5-2.2) mmol/L Calcium 8.0 L (8.6-10.8) mg/dL Total Bilirubin 0.3 (0.2-1.2) mg/dL Direct Bilirubin 0.2 (0.0-0.5) mg/dL Indirect Bilirubin 0.1 (0.0-1.2) mg/dL AST 28 (5-34) Units/L ALT 12 (0-55) Units/L Alkaline Phosphatase 109 (38-126) Units/L Troponin I (0-0.03) ng/mL B-Natriuretic Peptide (0-100) pg/mL Serum Total Protein 5.4 L (6.0-8.3) g/dL Albumin 1.8 L (3.5-5.0) g/dL Globulin 3.6 H (2.4-3.5) g/dL Albumin/Globulin Ratio 0.5 L (1.1-2.2) Urine Color (Yellow) Urine Clarity (Clear) Urine pH (5.0-8.0) pH Units Ur Specific [place] (1.010-1.025) Urine Protein (Neg-Trace) mg/dL Urine Glucose (UA) (Normal) mg/dL Urine Ketones (Negative) mg/dL Urine Blood (Negative) Urine Nitrite (Negative) Urine Bilirubin (Negative) Urine Urobilinogen (Normal) mg/dL Ur Leukocyte Esterase (Negative) Urine Microscopic RBC (0-3) per hpf Urine Microscopic WBC (0-3) per hpf Ur Squamous Epith Cells (None-Few) per lpf Urine Bacteria (None-Few) per hpf Hyaline Casts (None-Few) per lpf Ur Culture Indicated? (NO) 08/04/16 08/04/16 08/04/16 Range/Units 16:56 16:56 16:56 WBC (4.3-11.1) K/mcL RBC (3.82-4.97) M/mcL Hgb (11.5-15.4) g/dL Hct (35.3-44.9) % MCV (83.0-100.0) fL MCH (28.0-33.3) pg MCHC (31.6-35.5) g/dL RDW (11.5-14.5) % Plt Count (140-400) K/mcL MPV (9.4-12.4) fL Immature Gran % (0-4) % Seg Neutrophils % % Lymphocytes % % Monocytes % % Eosinophils % % Basophils % % Neutrophils # (1.6-8.9) K/mcL Lymphocytes # (0.6-4.6) K/mcL Monocytes # (0.0-1.3) K/mcL Eosinophils # (0.0-0.6) K/mcL Basophils # (0.0-0.2) K/mcL PT (9.4-12.1) Seconds INR APTT (26.0-36.0) Seconds Sodium (136-145) mEq/L Potassium (3.5-4.5) mEq/L Chloride (98-109) mEq/L Carbon Dioxide (19-29) mEq/L BUN (7-20) mg/dL Creatinine (0.57-1.11) mg/dL Est GFR ( Amer) (> 60) Est GFR (Non-Af Amer) (> 60) BUN/Creatinine Ratio (6-26) Glucose (70-99) mg/dL Calculated Osmolality (280-300) Lactic Acid 0.9 (0.5-2.2) mmol/L Calcium (8.6-10.8) mg/dL Total Bilirubin (0.2-1.2) mg/dL Direct Bilirubin (0.0-0.5) mg/dL Indirect Bilirubin (0.0-1.2) mg/dL AST (5-34) Units/L ALT (0-55) Units/L Alkaline Phosphatase (38-126) Units/L Troponin I 0.02 (0-0.03) ng/mL B-Natriuretic Peptide 2328 H (0-100) pg/mL Serum Total Protein (6.0-8.3) g/dL Albumin (3.5-5.0) g/dL Globulin (2.4-3.5) g/dL Albumin/Globulin Ratio (1.1-2.2) Urine Color (Yellow) Urine Clarity (Clear) Urine pH (5.0-8.0) pH Units Ur Specific [place] (1.010-1.025) Urine Protein (Neg-Trace) mg/dL Urine Glucose (UA) (Normal) mg/dL Urine Ketones (Negative) mg/dL Urine Blood (Negative) Urine Nitrite (Negative) Urine Bilirubin (Negative) Urine Urobilinogen (Normal) mg/dL Ur Leukocyte Esterase (Negative) Urine Microscopic RBC (0-3) per hpf Urine Microscopic WBC (0-3) per hpf Ur Squamous Epith Cells (None-Few) per lpf Urine Bacteria (None-Few) per hpf Hyaline Casts (None-Few) per lpf Ur Culture Indicated? (NO) 08/04/16 Range/Units 18:00 WBC (4.3-11.1) K/mcL RBC (3.82-4.97) M/mcL Hgb (11.5-15.4) g/dL Hct (35.3-44.9) % MCV (83.0-100.0) fL MCH (28.0-33.3) pg MCHC (31.6-35.5) g/dL RDW (11.5-14.5) % Plt Count (140-400) K/mcL MPV (9.4-12.4) fL Immature Gran % (0-4) % Seg Neutrophils % % Lymphocytes % % Monocytes % % Eosinophils % % Basophils % % Neutrophils # (1.6-8.9) K/mcL Lymphocytes # (0.6-4.6) K/mcL Monocytes # (0.0-1.3) K/mcL Eosinophils # (0.0-0.6) K/mcL Basophils # (0.0-0.2) K/mcL PT (9.4-12.1) Seconds INR APTT (26.0-36.0) Seconds Sodium (136-145) mEq/L Potassium (3.5-4.5) mEq/L Chloride (98-109) mEq/L Carbon Dioxide (19-29) mEq/L BUN (7-20) mg/dL Creatinine (0.57-1.11) mg/dL Est GFR ( Amer) (> 60) Est GFR (Non-Af Amer) (> 60) BUN/Creatinine Ratio (6-26) Glucose (70-99) mg/dL Calculated Osmolality (280-300) Lactic Acid (0.5-2.2) mmol/L Calcium (8.6-10.8) mg/dL Total Bilirubin (0.2-1.2) mg/dL Direct Bilirubin (0.0-0.5) mg/dL Indirect Bilirubin (0.0-1.2) mg/dL AST (5-34) Units/L ALT (0-55) Units/L Alkaline Phosphatase (38-126) Units/L Troponin I (0-0.03) ng/mL B-Natriuretic Peptide (0-100) pg/mL Serum Total Protein (6.0-8.3) g/dL Albumin (3.5-5.0) g/dL Globulin (2.4-3.5) g/dL Albumin/Globulin Ratio (1.1-2.2) Urine Color Yellow (Yellow) Urine Clarity Clear (Clear) Urine pH 6.0 (5.0-8.0) pH Units Ur Specific [place] 1.017 (1.010-1.025) Urine Protein >=300 H (Neg-Trace) mg/dL Urine Glucose (UA) 100 H (Normal) mg/dL Urine Ketones Negative (Negative) mg/dL Urine Blood Moderate H (Negative) Urine Nitrite Negative (Negative) Urine Bilirubin Negative (Negative) Urine Urobilinogen Normal (Normal) mg/dL Ur Leukocyte Esterase Negative (Negative) Urine Microscopic RBC 5-15 H (0-3) per hpf Urine Microscopic WBC 3-5 H (0-3) per hpf Ur Squamous Epith Cells Many H (None-Few) per lpf Urine Bacteria None Seen (None-Few) per hpf Hyaline Casts None Seen (None-Few) per lpf Ur Culture Indicated? NO (NO) - Radiology Data Radiology results reviewed: Yes I reviewed the patient's radiology results. - EKG Data EKG attestation: Yes I reviewed and interpreted this EKG. EKG results narrative: Sinus rhythm, rate 71, [place] interval 156, QRS 105, QTC 420, normal axis, no ischemic changes. S.B.A.RInga - [place] Situation: Demographics, MOA Background: Presenting Complaint, Relevant PMH, Meds, & Allergies Assessment: Vital Signs, Course and respsone to treatment, Exam Concerns, Patient/Family Expectation, Pertinant Lab Results, Outstanding Labs Recommendation: Barrier(s) to disposition, Recommendation based on pending studies, treatments, or consults S.B.AIngaRInga Report Given to: Dr. Arnold Vasquez Time: 19:01
[2016-08-04 17:07] LABS: Basophils # 0.1 K/mcL (0.0-0.2); Basophils % 1.2 %; Eosinophils # 0.2 K/mcL (0.0-0.6); Hematocrit 33.7 % (35.3-44.9); Hemoglobin 10.4 g/dL (11.5-15.4); Immature Granulocytes % 0.1 % (0-4); Lymphocytes # 2.2 K/mcL (0.6-4.6); Lymphocytes % 28.8 %; Mean Corpuscular HGB Conc 30.9 g/dL (31.6-35.5); Mean Corpuscular Hemoglobin 26.7 pg (28.0-33.3); Mean Corpuscular Volume 86.6 fL (83.0-100.0); Mean Platelet Volume 8.7 fL (9.4-12.4); Monocytes # 0.5 K/mcL (0.0-1.3); Monocytes % 6.8 %; Neutrophils # 4.6 K/mcL (1.6-8.9); Platelet Count 467 K/mcL (140-400); Red Blood Count 3.89 M/mcL (3.82-4.97); Red Cell Distribution Width 15.7 % (11.5-14.5); Segmented Neutrophils % 61.1 %
[2016-08-04 17:08] LABS: INR 1.9; Prothrombin Time 20.5 Seconds (9.4-12.1)
[2016-08-04 17:11] LABS: Activated Partial Thrombo Time 40.4 Seconds (26.0-36.0)
[2016-08-04 17:23] LABS: Alanine Aminotransferase 12 Units/L (0-55); Albumin/Globulin Ratio 0.5 (1.1-2.2); Alkaline Phosphatase 109 Units/L (38-126); Aspartate Amino Transferase 28 Units/L (5-34); BUN/Creatinine Ratio 34 (6-26); Bilirubin,Direct 0.2 mg/dL (0.0-0.5); Bilirubin,Indirect 0.1 mg/dL (0.0-1.2); Bilirubin,Total 0.3 mg/dL (0.2-1.2); Blood Urea Nitrogen 38 mg/dL (7-20); Carbon Dioxide 28 mEq/L (19-29); Chloride 105 mEq/L (98-109); Globulin 3.6 g/dL (2.4-3.5); Glucose 90 mg/dL (70-99); Osmolality,Calculated 299 (280-300); Potassium 4.2 mEq/L (3.5-4.5); Sodium 140 mEq/L (136-145); Total Protein 5.4 g/dL (6.0-8.3); eGFR For African Americans > 60 (> 60); eGFR For Non-African Americans 51 (> 60)
[2016-08-04 17:24] LABS: Albumin 1.8 g/dL (3.5-5.0)
[2016-08-04] MEDS ORDERED: Furosemide 40 MG/4 ML VIAL IVP ONE (17:47)
[2016-08-04 18:09] LABS: Bilirubin,Urine Negative (Negative); Blood,Urine Moderate (Negative); Clarity,Urine Clear (Clear); Color,Urine Yellow (Yellow); Glucose,Urine (UA) 100 mg/dL (Normal); Ketones,Urine Negative (Negative); Leukocyte Esterase,Urine Negative (Negative); Nitrite,Urine Negative (Negative); Protein,Urine >=300 mg/dL (Neg-Trace); Specific Gravity,Urine 1.017 (1.010-1.025); Urobilinogen,Urine Normal (Normal)
[2016-08-04 18:11] LABS: Bacteria,Urine None Seen per hpf (None-Few); Hyaline Casts,Urine None Seen per lpf (None-Few); Squamous Epithelial Cell,Urine Many per lpf (None-Few)
[2016-08-04] MEDS ORDERED: Acetaminophen 325 MG TABLET PO ONE (19:34)
[2016-08-04] MEDS ORDERED: Naloxone 0.4 MG/ML INJ IVP PRN (20:46)
[2016-08-04] MEDS ORDERED: Dextrose Gel 15 GM PO PRN ×2 (20:52)
[2016-08-04] MEDS ORDERED: *HR* Dextrose 50 % in Water (Syg) 50 ML SYRINGE IVP PRN (20:52)
[2016-08-04] MEDS ORDERED: D5% in Water 1,000 ML IVC PRN (20:52)
--- NOTE | 2016-08-04 20:55 | Internal Med History&Physical ---
Date of Encounter: 08/04/16 Time of Encounter: 21:00 Assessment and Plan (1) CHF exacerbation Current visit: Yes Status: Acute Patient has known systolic CHF with LVEF 40%. Increased shortness of breath and leg swelling. BNP 2328. Consider CHF exacerbation. - Put patient on Lasix 40 mg IV twice a day. - Strict in and out. - Weight daily. 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 Continue home medication. Qualifiers: Hypertension type: essential hypertension Qualified Code(s): I10 - Essential (primary) hypertension (5) CAD (coronary artery disease) Current visit: No Status: Chronic Continue home medication. Qualifiers: Coronary Disease-Associated Artery/Lesion type: eek artery [place] vs. transplanted heart: eek heart Associated angina: without angina Qualified Code(s): I25.10 - Atherosclerotic heart disease of eek coronary artery without angina pectoris (6) COPD (chronic obstructive pulmonary disease) Current visit: No Status: Chronic Stable. Continue home medication. Qualifiers: COPD type: unspecified COPD Qualified Code(s): J44.9 - Chronic obstructive pulmonary disease, unspecified Internal Medicine - H&P: HPI Chief complaint: SOB Admitted From: Home Plans for Post Hospital Care: Home History of present illness: Ms. Mckeon is a 46 year old female with known history of systolic CHF present to ER for increased shortness of breath for 7 days. Patient said she has more shortness of breath than before, with the increased the belly girth, mild cough. Cannot lay flat for sleep. And do not sleep well for many days. She has mild nausea, no vomiting. She also complained diarrhea with watery stool. She denies chest pain. Patient is admitted for CHF exacerbation. I have discussed CODE STATUS with her in emergency room. And was confirmed she has a CODE STATUS of DNR/DNI. Past Med Surg Social Fam HX - Past Medical History Medical history: cardiomyopathy, cirrhosis, CHF, COPD, coronary artery disease, CVA, diabetes, peripheral artery disease, renal disease, TIA, other Psychiatric history: anxiety - Past Surgical History Surgical History: appendectomy, cholecystectomy, hysterectomy, orthopedic, other , other - Social History Smoking Status: Current every day smoker Smokeless Tobacco Status: No Alcohol use: none Drug use: none - Family History Father Adopted: No Family Member Ethnicity: Non- Living Status: Hx Family Cardiac Disorders: No Hx Family Respiratory Disorders: Yes Hx Family Cancer: Yes Hx Family Endocrine Disorder: Yes Hx Family Neurologic Disorders: No Internal Medicine - H&P: Meds Albuterol Sulfate [Proair Hfa] 2 puff IH Q4H PRN 06/18/16 [History] Alprazolam [Xanax 0.5 MG Tablet] 0.5 mg PO HS PRN 06/18/16 [History] Atorvastatin [Lipitor] 40 mg PO HS 06/18/16 [History] Clopidogrel [Plavix] 75 mg PO DAILY 06/18/16 [History] Docusate [Colace] 100 mg PO BID 06/18/16 [History] Fenofibrate [Lofibra] 160 mg PO DAILY 06/18/16 [History] Furosemide [Lasix] 40 mg PO DAILY 06/18/16 [History] Gabapentin [Neurontin] 400 mg PO TID 06/18/16 [History] Isosorbide MONOnitrate (24 HR) [Imdur] 60 mg PO DAILY 06/18/16 [History] Lisinopril 2.5 mg PO DAILY 06/18/16 [History] Metoprolol XL (24 HR) Succ [Toprol Xl] 50 mg PO DAILY 06/18/16 [History] Potassium Chloride [Klor-Con Sprinkle] 10 meq PO DAILY 06/18/16 [History] Ranolazine [Ranexa] 500 mg PO BID 06/18/16 [History] Insulin DETEMIR [Levemir Flextouch] 5 unit SQ HS #1 insuln.pen 07/07/16 [Rx] Allergies ciprofloxacin [From Cipro] Allergy (Verified 08/04/16 19:26) Hives codeine Allergy (Verified 08/04/16 19:26) Hives insulin glargine [From Lantus] Allergy (Verified 08/04/16 19:26) Hives aspirin Adverse Reaction (Verified 08/04/16 22:12) Nausea All Systems PM: A 10-system review of systems was performed and is negative for pertinent findings except as documented above in the HPI. - Constitutional Vitals: Temp Pulse Resp BP Pulse Ox 97.0 F L 70 12 121/74 93 08/04/16 20:39 08/04/16 20:39 08/04/16 20:39 08/04/16 20:39 08/04/16 20:39 General appearance: Present: mild distress, A&O X 3, answers questions appropriately - Head Head exam: Present: atraumatic, normocephalic - Eye Eye exam: Present: PERRL, conjuntiva pink, sclera anicteric Pupils: Present: PERRL - Neck Neck exam general surgery: Present: supple, trachea midline. Absent: lymphadenopathy - Respiratory Respiratory exam: Present: CTAB, rhonchi (Diffuse rhonchi bilaterally). Absent : accessory muscle use, rales, wheezes - Cardiovascular Cardiovascular exam: Present: RRR, +S1, +S2. Absent: diastolic murmur, gallop, rubs, systolic murmur - GI/Abdominal GI/Abdominal exam: Present: normal bowel sounds, soft, tenderness (Diffused abdominal tenderness, no rebound or guarding.), no peritoneal signs. Absent: distended - Extremities Exam Extremities exam: Present: pedal edema (Bilaterally), warm, radial pulses palpable and symetrical. Absent: calf tenderness, cyanotic - Neurological Exam Neurological exam: Present: CN II-XII intact, oriented X3, no focal deficits. Absent: pronater drift, facial droop, speech deficit - Skin Skin exam: Present: dry, intact Internal Med - H&P Results - Labs CBC & Chem 7: 08/04/16 16:56 08/04/16 16:56
[2016-08-04] MEDS: Ranolazine 500 MG TAB.ER.12H PO SCH (21:10)
[2016-08-04] MEDS: Gabapentin 400 MG CAPSULE PO SCH (21:11)
[2016-08-04] MEDS: Insulin LISPRO 300 UNITS/3 ML VIAL SQ SCH (21:11)
[2016-08-04] MEDS: ALPRAZolam 0.5 MG TABLET PO PRN (22:14)
[2016-08-04] MEDS: Nicotine 21 MG PATCH.TD24 TD SCH (22:50)
[2016-08-04] MEDS: Furosemide 40 MG/4 ML VIAL IVP SCH (22:51)
[2016-08-05 04:36] LABS: Basophils # 0.1 K/mcL (0.0-0.2); Basophils % 1.2 %; Eosinophils # 0.1 K/mcL (0.0-0.6); Eosinophils % 1.9 %; Hematocrit 34.9 % (35.3-44.9); Hemoglobin 10.7 g/dL (11.5-15.4); Immature Granulocytes % 0.3 % (0-4); Lymphocytes % 29.6 %; Mean Corpuscular HGB Conc 30.7 g/dL (31.6-35.5); Mean Corpuscular Hemoglobin 26.2 pg (28.0-33.3); Mean Corpuscular Volume 85.3 fL (83.0-100.0); Mean Platelet Volume 9.1 fL (9.4-12.4); Monocytes # 0.4 K/mcL (0.0-1.3); Monocytes % 5.8 %; Neutrophils # 4.1 K/mcL (1.6-8.9); Platelet Count 468 K/mcL (140-400); Red Blood Count 4.09 M/mcL (3.82-4.97); Red Cell Distribution Width 15.7 % (11.5-14.5); Segmented Neutrophils % 61.2 %
[2016-08-05 04:53] LABS: BUN/Creatinine Ratio 38 (6-26); Blood Urea Nitrogen 41 mg/dL (7-20); Carbon Dioxide 28 mEq/L (19-29); Chloride 105 mEq/L (98-109); Glucose 107 mg/dL (70-99); Osmolality,Calculated 299 (280-300); Potassium 4.4 mEq/L (3.5-4.5); Sodium 139 mEq/L (136-145); eGFR For African Americans > 60 (> 60); eGFR For Non-African Americans 55 (> 60)
[2016-08-05] MEDS: *HR* Heparin 5,000 UNIT/ML VIAL SQ SCH ×2 (05:24→17:20)
[2016-08-05] MEDS: Insulin LISPRO 300 UNITS/3 ML VIAL SQ SCH ×4 (07:20→20:04)
[2016-08-05] MEDS: Gabapentin 400 MG CAPSULE PO SCH ×3 (07:53→20:11)
[2016-08-05] MEDS: Metoprolol XL (24 HR) Succ 50 MG TAB.ER.24H PO SCH (07:53)
[2016-08-05] MEDS: Ranolazine 500 MG TAB.ER.12H PO SCH ×2 (07:53→20:11)
[2016-08-05] MEDS: Furosemide 40 MG/4 ML VIAL IVP SCH ×2 (07:53→20:10)
[2016-08-05] MEDS: Isosorbide MONOnitrate (24 HR) 60 MG TAB.ER.24H PO SCH (07:53)
[2016-08-05] MEDS: Nicotine 21 MG PATCH.TD24 TD SCH (07:53)
[2016-08-05] MEDS: Fenofibrate 54 MG TABLET PO SCH (07:53)
--- NOTE | 2016-08-05 10:33 | Electrocardiograph Report ---
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
[2016-08-05] MEDS: *HR* OxyCODONE/APAP 5/325 TABLET PO PRN ×2 (15:14→21:52)
--- NOTE | 2016-08-05 17:01 | Internal Med Progress Note ---
Date of Encounter: 08/05/16 Time of Encounter: 13:30 - Assessment and plan (1) Abdominal pain Current Visit: Yes Status: Acute Assessment and plan: Abdominal pain and distention could be due to volume overload and liver congestion due to CHF. Pain control with when necessary oral Percocet. We will obtain noncontrast CT abdomen to evaluate further. Qualifiers: Abdominal location: generalized Qualified Code(s): R10.84 - Generalized abdominal pain (2) Acute CHF Current Visit: Yes Status: Acute Assessment and plan: Patient noted to have hypoxia, dyspnea and significant peripheral edema. Continue IV Lasix along with fluid restriction, strict urine output monitoring and daily weights. Continue beta carlos. Echocardiogram from June 2016 shows moderately decreased EF of 40%, mild left ventricular diastolic dysfunction. Supplemental oxygen and supportive care. Qualifiers: Congestive heart failure type: combined Qualified Code(s): I50.41 - Acute combined systolic (congestive) and diastolic (congestive) heart failure (3) Diabetes mellitus Current Visit: Yes Status: Chronic Assessment and plan: Accu-Chek blood glucose monitoring with basal bolus insulin regimen. Diabetic diet. 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 Continue aspirin, Plavix and statin. Qualifiers: CVA mechanism: unspecified Qualified Code(s): I63.9 - Cerebral infarction, unspecified (5) PVD (peripheral vascular disease) Current Visit: Yes Status: Chronic (6) Tobacco abuse Current Visit: Yes Status: Chronic (7) DVT (deep venous thrombosis) Current Visit: Yes Status: Chronic Assessment and plan: Continue anticoagulation with Xarelto; Qualifiers: DVT location: upper extremity Affected thrombotic vein of extremity: brachial Laterality: left Chronicity: chronic Qualified Code(s): I82.722 - 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 (8) CAD (coronary artery disease) Current Visit: Yes Status: Chronic Qualifiers: Coronary Disease-Associated Artery/Lesion type: [place] artery [place] vs. transplanted heart: [place] heart Associated angina: without angina Qualified Code(s): I25.10 - Atherosclerotic heart disease of [place] coronary artery without angina pectoris (9) COPD (chronic obstructive pulmonary disease) Current Visit: Yes Status: Chronic Assessment and plan: Continue bronchodilators along with supplemental oxygen. Qualifiers: COPD type: unspecified COPD Qualified Code(s): J44.9 - Chronic obstructive pulmonary disease, unspecified (10) Hypertension Current Visit: Yes Status: Chronic Qualifiers: Hypertension type: essential hypertension Qualified Code(s): I10 - Essential (primary) hypertension - Subjective Interval history: Improving shortness of breath. Reports diffuse abdominal pain and distention along with significant leg swelling. - Constitutional Vitals: Temp Pulse Resp BP Pulse Ox 97.6 F 74 17 131/54 92 08/05/16 15:27 08/05/16 15:27 08/05/16 15:27 08/05/16 15:27 08/05/16 15:27 General appearance: Present: A&O X 3, answers questions appropriately - Respiratory Respiratory exam: Present: CTAB. Absent: accessory muscle use, rales, rhonchi, wheezes - Cardiovascular Cardiovascular exam: Present: RRR, +S1, +S2. Absent: diastolic murmur, gallop, rubs, systolic murmur - GI/Abdominal GI/Abdominal exam: Present: distended, normal bowel sounds, soft (Diffuse tenderness with no guarding or rigidity), no peritoneal signs. Absent: tenderness - Extremities Exam Extremities exam: Present: full ROM, pedal edema (3+ pitting pedal edema bilateral lower extremities up to hips), warm, radial pulses palpable and symetrical. Absent: calf tenderness, cyanotic - Neurological Exam Neurological exam: Present: CN II-XII intact, oriented X3, no focal deficits. Absent: pronater drift, facial droop, speech deficit Internal Medicine: Result - Labs CBC & Chem 7: 08/05/16 03:25 08/05/16 03:25 Labs: Short CBC 08/05/16 Range/Units 03:25 WBC 6.8 (4.3-11.1) K/mcL Hgb 10.7 L (11.5-15.4) g/dL Hct 34.9 L (35.3-44.9) % Plt Count 468 H (140-400) K/mcL Neutrophils # 4.1 (1.6-8.9) K/mcL BMP 08/05/16 03:25 Sodium 139 Potassium 4.4 Chloride 105 Carbon Dioxide 28 BUN 41 H Creatinine 1.07 Glucose 107 H Calcium 8.0 L - ABG Interpretation ABG results: PT/INR, D-dimer PT 20.5 Seconds (9.4-12.1) H 08/04/16 16:56 Consult Discharge Plan - Plan Referrals: Hetal Mcallister DO [Resident] - 08/23/16 4:00 pm
[2016-08-05] MEDS: Ipratropium/Albuterol Neb 3 ML IH PRN (17:10)
[2016-08-05] MEDS: *HR* Rivaroxaban 10 MG TABLET PO SCH (17:21)
[2016-08-05] MEDS: Ondansetron 4 MG/2 ML VIAL IVP PRN (20:10)
[2016-08-05] MEDS: ALPRAZolam 0.5 MG TABLET PO PRN (21:52)
[2016-08-06] MEDS: *HR* OxyCODONE/APAP 5/325 TABLET PO PRN ×2 (05:09→13:39)
[2016-08-06] MEDS: *HR* Heparin 5,000 UNIT/ML VIAL SQ SCH ×2 (05:10→17:15)
[2016-08-06 05:25] LABS: Calcium 7.9 mg/dL (8.6-10.8); Magnesium 1.3 mg/dL (1.6-2.6); Potassium 4.5 mEq/L (3.5-4.5)
[2016-08-06] MEDS: Nicotine 21 MG PATCH.TD24 TD SCH (08:20)
[2016-08-06] MEDS: Insulin LISPRO 300 UNITS/3 ML VIAL SQ SCH ×4 (08:21→22:07)
[2016-08-06] MEDS: Furosemide 40 MG/4 ML VIAL IVP SCH ×2 (08:21→21:07)
[2016-08-06] MEDS: Isosorbide MONOnitrate (24 HR) 60 MG TAB.ER.24H PO SCH (08:22)
[2016-08-06] MEDS: Fenofibrate 54 MG TABLET PO SCH (08:22)
[2016-08-06] MEDS: Ranolazine 500 MG TAB.ER.12H PO SCH ×2 (08:23→21:07)
[2016-08-06] MEDS: Metoprolol XL (24 HR) Succ 50 MG TAB.ER.24H PO SCH (08:23)
[2016-08-06] MEDS: Gabapentin 400 MG CAPSULE PO SCH ×3 (08:23→21:07)
[2016-08-06] MEDS ORDERED: Magnesium Sulfate 2 GM in D5% in Water 100 ML IVPB ONE (12:04)
--- NOTE | 2016-08-06 13:48 | Internal Med Progress Note ---
Date of Encounter: 08/06/16 Time of Encounter: 13:45 - Assessment and plan (1) Anasarca Current Visit: Yes Status: Chronic Assessment and plan: Unclear duration but new onset per patient. Could be related to underlying CHF versus possible cirrhosis versus nephrotic syndrome. Continue IV diuresis with Lasix, monitor urine output. Noted to have hypoalbuminemia with albumin 1.8. We will start IV albumin today. Noted to have proteinuria on urinalysis; will check urine protein creatinine ratio and 24-hour urine protein and consult nephrology if needed. (2) Abdominal pain Current Visit: Yes Status: Acute Assessment and plan: Abdominal pain and distention could be due to volume overload and liver congestion due to CHF and anasarca. Pain control with when necessary oral Percocet. Noncontrast CT abdomen/pelvis shows no acute abdominal pathology except anasarca and significant subcutaneous edema. Check right upper quadrant ultrasound. Qualifiers: Abdominal location: generalized Qualified Code(s): R10.84 - Generalized abdominal pain (3) Acute CHF Current Visit: Yes Status: Acute Assessment and plan: Patient noted to have hypoxia, dyspnea and significant peripheral edema. Continue IV Lasix along with fluid restriction, strict urine output monitoring and daily weights. Noted to have appropriate urine output. Continue beta carlos. Echocardiogram from June 2016 shows moderately decreased EF of 40%, mild left ventricular diastolic dysfunction. Supplemental oxygen and supportive care. Qualifiers: Congestive heart failure type: combined Qualified Code(s): I50.41 - Acute combined systolic (congestive) and diastolic (congestive) heart failure (4) Diabetes mellitus Current Visit: Yes Status: Chronic Assessment and plan: Accu-Chek blood glucose monitoring with basal bolus insulin regimen. Diabetic diet. Qualifiers: Diabetes mellitus type: type 2 Diabetes mellitus complication status: with kidney complications Diabetes mellitus complication detail: with chronic kidney disease Diabetes mellitus jail insulin use: with rn long term care use Chronic kidney disease stage: stage 3 (moderate) Qualified Code(s): E11.22 - Type 2 diabetes mellitus with diabetic chronic kidney disease; N18.3 - Chronic kidney disease, stage 3 (moderate); Z79.4 - correction (current) use of insulin (5) CVA (cerebral vascular accident) Current Visit: Yes Status: Inactive Qualifiers: CVA mechanism: unspecified Qualified Code(s): I63.9 - Cerebral infarction, unspecified (6) PVD (peripheral vascular disease) Current Visit: Yes Status: Chronic (7) Tobacco abuse Current Visit: Yes Status: Chronic (8) DVT (deep venous thrombosis) Current Visit: Yes Status: Chronic Assessment and plan: Continue anticoagulation with Xarelto; Qualifiers: DVT location: upper extremity Affected thrombotic vein of extremity: brachial Laterality: left Chronicity: chronic Qualified Code(s): I82.722 - 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 (9) CAD (coronary artery disease) Current Visit: Yes Status: Chronic Qualifiers: Coronary Disease-Associated Artery/Lesion type: [place] artery [place] vs. transplanted heart: [place] heart Associated angina: without angina Qualified Code(s): I25.10 - Atherosclerotic heart disease of [place] coronary artery without angina pectoris (10) COPD (chronic obstructive pulmonary disease) Current Visit: Yes Status: Chronic Qualifiers: COPD type: unspecified COPD Qualified Code(s): J44.9 - Chronic obstructive pulmonary disease, unspecified (11) Hypertension Current Visit: Yes Status: Chronic Qualifiers: Hypertension type: essential hypertension Qualified Code(s): I10 - Essential (primary) hypertension - Subjective Interval history: Improving shortness of breath; persistent leg swelling and abdominal distension and skin thickening; no chest pain, palpitations; - Constitutional Vitals: Temp Pulse Resp BP Pulse Ox 97.3 F L 57 16 115/70 99 08/06/16 11:40 08/06/16 11:40 08/06/16 11:40 08/06/16 11:40 08/06/16 11:40 General appearance: Present: A&O X 3, answers questions appropriately - Respiratory Respiratory exam: Present: CTAB. Absent: accessory muscle use, rales, rhonchi, wheezes - Cardiovascular Cardiovascular exam: Present: RRR, +S1, +S2. Absent: diastolic murmur, gallop, rubs, systolic murmur - GI/Abdominal GI/Abdominal exam: Present: distended, normal bowel sounds, soft (anasarca, subcutaneous edema of abdomen; tenderness in right upper abdomen), no peritoneal signs. Absent: tenderness - Extremities Exam Extremities exam: Present: full ROM, pedal edema (3+ pitting pedal edema up to hips with anasarca), warm, radial pulses palpable and symetrical. Absent: calf tenderness, cyanotic - Neurological Exam Neurological exam: Present: CN II-XII intact, oriented X3, no focal deficits. Absent: pronater drift, facial droop, speech deficit Internal Medicine: Result - Labs CBC & Chem 7: 08/05/16 03:25 08/06/16 04:49 Labs: BMP 08/06/16 04:49 Sodium 136 Potassium 4.5 Chloride 102 Carbon Dioxide 25 BUN 48 H Creatinine 1.35 H Glucose 166 H Calcium 7.9 L - ABG Interpretation ABG results: PT/INR, D-dimer PT 20.5 Seconds (9.4-12.1) H 08/04/16 16:56 - Impressions Impressions Abdomen/Pelvis CT 08/05/16 16:30 IMPRESSION: 1. Study is slightly limited due to motion artifact and lack of IV contrast. 2. Diffuse anasarca/third-spacing of fluid with pulmonary edema and diffuse body wall subcutaneous edema. 3. Otherwise no definite acute findings within the abdomen or pelvis. D/ / Berto Barlow MD / Berto Barlow MD Interpreting Provider: Berto Barlow MD Consult Discharge Plan - Plan Referrals: Hetal Mcallister DO [Resident] - 08/23/16 4:00 pm
[2016-08-06] MEDS: *HR* Rivaroxaban 10 MG TABLET PO SCH (17:16)
[2016-08-06] MEDS: Albumin 25% 25gram/100mL 25 GM/100 ML IV.SOLN IVPB SCH (17:16)
[2016-08-06] MEDS: Magnesium Oxide 400 MG TABLET PO SCH (21:07)
[2016-08-06] MEDS: ALPRAZolam 0.5 MG TABLET PO PRN (22:35)
[2016-08-07] MEDS: Albumin 25% 25gram/100mL 25 GM/100 ML IV.SOLN IVPB SCH ×4 (00:20→16:49)
[2016-08-07] MEDS: *HR* Heparin 5,000 UNIT/ML VIAL SQ SCH ×2 (06:04→16:48)
[2016-08-07 06:11] LABS: Hematocrit 29.5 % (35.3-44.9); Hemoglobin 9.3 g/dL (11.5-15.4); Mean Corpuscular HGB Conc 31.5 g/dL (31.6-35.5); Mean Corpuscular Hemoglobin 26.8 pg (28.0-33.3); Mean Platelet Volume 9.1 fL (9.4-12.4); Platelet Count 353 K/mcL (140-400); Red Blood Count 3.47 M/mcL (3.82-4.97); Red Cell Distribution Width 15.6 % (11.5-14.5); Segmented Neutrophils % 60.1 %
[2016-08-07 06:12] LABS: Basophils # 0.1 K/mcL (0.0-0.2); Basophils % 1.1 %; Eosinophils # 0.2 K/mcL (0.0-0.6); Immature Granulocytes % 0.4 % (0-4); Lymphocytes # 1.6 K/mcL (0.6-4.6); Lymphocytes % 28.3 %; Monocytes # 0.4 K/mcL (0.0-1.3); Monocytes % 7.1 %; Neutrophils # 3.4 K/mcL (1.6-8.9)
[2016-08-07 06:23] LABS: Albumin/Globulin Ratio 0.8 (1.1-2.2); Bilirubin,Total 0.3 mg/dL (0.2-1.2); Calcium 7.9 mg/dL (8.6-10.8); Globulin 2.8 g/dL (2.4-3.5); Magnesium 1.8 mg/dL (1.6-2.6); Potassium 4.4 mEq/L (3.5-4.5); Total Protein 5.1 g/dL (6.0-8.3)
[2016-08-07 06:24] LABS: Albumin 2.3 g/dL (3.5-5.0)
[2016-08-07] MEDS: Insulin LISPRO 300 UNITS/3 ML VIAL SQ SCH ×4 (07:49→21:13)
[2016-08-07] MEDS: Isosorbide MONOnitrate (24 HR) 60 MG TAB.ER.24H PO SCH (08:00)
[2016-08-07] MEDS: Fenofibrate 54 MG TABLET PO SCH (08:00)
[2016-08-07] MEDS: *HR* OxyCODONE/APAP 5/325 TABLET PO PRN ×2 (08:00→20:51)
[2016-08-07] MEDS: Gabapentin 400 MG CAPSULE PO SCH ×2 (08:00→20:51)
[2016-08-07] MEDS: Metoprolol XL (24 HR) Succ 50 MG TAB.ER.24H PO SCH (08:00)
[2016-08-07] MEDS: Magnesium Oxide 400 MG TABLET PO SCH ×2 (08:00→20:50)
[2016-08-07] MEDS: Ranolazine 500 MG TAB.ER.12H PO SCH ×2 (08:00→20:50)
[2016-08-07] MEDS: Nicotine 21 MG PATCH.TD24 TD SCH (08:01)
[2016-08-07] MEDS: Furosemide 40 MG/4 ML VIAL IVP SCH ×2 (08:01→20:50)
--- NOTE | 2016-08-07 11:04 | Internal Med Progress Note ---
Date of Encounter: 08/07/16 Time of Encounter: 11:07 - Assessment and plan (1) LANETTE (acute kidney injury) Current Visit: Yes Status: Acute Assessment and plan: Noted to have normal serum creatinine until May 2016 since then she has had GFR between 40 and 50s. Could be diabetic nephropathy given her proteinuria. Patient also presented with new onset and progressive anasarca, needs workup for other causes for nephrotic syndrome. Serum creatinine currently noted to be worsening due to use of IV diuretics and LUC inhibitor. Discontinue lisinopril at this time. Nephrology consult appreciated. (2) Anasarca Current Visit: Yes Status: Acute Assessment and plan: Unclear duration but new onset per patient. Associated with proteinuria. Could be related to underlying CHF versus nephrotic syndrome. Nephrology consult appreciated; agree with current plan, recommend adding spironolactone and adjusting blood pressure medications to avoid hypotension. Continue IV diuresis with Lasix, monitor urine output. Follow-up 24-hour urine protein and protein creatinine ratio. Nephrology recommends evaluating for myeloma, follow- up SPEP/UPEP, and anemia workup. Continue IV albumin. (3) Abdominal pain Current Visit: Yes Status: Acute Assessment and plan: Abdominal pain and distention could be due to volume overload and anasarca. Improving. Pain control with when necessary oral Percocet. Noncontrast CT abdomen/pelvis shows no acute abdominal pathology except anasarca and significant subcutaneous edema. Right upper quadrant ultrasound report reviewed , no evidence of cirrhosis or other acute abnormality. Qualifiers: Abdominal location: generalized Qualified Code(s): R10.84 - Generalized abdominal pain (4) Acute CHF Current Visit: Yes Status: Acute Assessment and plan: Patient noted to have hypoxia, dyspnea and significant peripheral edema. However doubtful if anasarca is completely due to acute CHF. Continue IV Lasix along with fluid restriction, strict urine output monitoring and daily weights. Start spironolactone, as above. Noted to have appropriate urine output. Continue beta carlos. Echocardiogram from June 2016 shows moderately decreased EF of 40%, mild left ventricular diastolic dysfunction. Supplemental oxygen and supportive care. Qualifiers: Congestive heart failure type: combined Qualified Code(s): I50.41 - Acute combined systolic (congestive) and diastolic (congestive) heart failure (5) Diabetes mellitus Current Visit: Yes Status: Chronic Assessment and plan: Accu-Chek blood glucose monitoring with basal bolus insulin regimen. Diabetic diet. 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) use of insulin (6) CVA (cerebral vascular accident) Current Visit: Yes Status: Inactive Qualifiers: CVA mechanism: unspecified Qualified Code(s): I63.9 - Cerebral infarction, unspecified (7) PVD (peripheral vascular disease) Current Visit: Yes Status: Chronic (8) Tobacco abuse Current Visit: Yes Status: Chronic (9) DVT (deep venous thrombosis) Current Visit: Yes Status: Chronic Assessment and plan: Continue anticoagulation with Xarelto; Qualifiers: DVT location: upper extremity Affected thrombotic vein of extremity: brachial Laterality: left Chronicity: chronic Qualified Code(s): I82.722 - 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 transplanted heart: [place] heart Associated angina: without angina Qualified Code(s): I25.10 - Atherosclerotic heart disease of [place] coronary artery without angina pectoris (11) COPD (chronic obstructive pulmonary disease) Current Visit: Yes Status: Chronic Qualifiers: COPD type: unspecified COPD Qualified Code(s): J44.9 - Chronic obstructive pulmonary disease, unspecified (12) Hypertension Current Visit: Yes Status: Chronic Assessment and plan: Decrease dose of Imdur and metoprolol, continue Lasix and spironolactone and monitor blood pressure closely. Qualifiers: Hypertension type: essential hypertension Qualified Code(s): I10 - Essential (primary) hypertension - Subjective Interval history: No new complaints; continues to have significant leg swelling and anasarca; 24- hour urine studies pending; tolerates oral diet; no chest pain; requiring supplemental O2; - Constitutional Vitals: Temp Pulse Resp BP Pulse Ox 97.5 F L 68 16 120/70 91 08/07/16 07:36 08/07/16 07:36 08/07/16 07:36 08/07/16 07:36 08/07/16 07:36 General appearance: Present: A&O X 3, answers questions appropriately - Respiratory Respiratory exam: Present: CTAB (faint crackles B/L). Absent: accessory muscle use, rales, rhonchi, wheezes - Cardiovascular Cardiovascular exam: Present: RRR, +S1, +S2. Absent: diastolic murmur, gallop, rubs, systolic murmur - GI/Abdominal GI/Abdominal exam: Present: normal bowel sounds, soft (subcutaneous edema, improving tenderness), no peritoneal signs. Absent: distended, tenderness - Extremities Exam Extremities exam: Present: full ROM, pedal edema (3+ B/L pitting pedal edema, extending upto hips;), warm, radial pulses palpable and symetrical. Absent: calf tenderness, cyanotic Internal Medicine: Result - Labs CBC & Chem 7: 08/07/16 05:37 08/07/16 05:37 Labs: Short CBC 08/07/16 Range/Units 05:37 WBC 5.6 (4.3-11.1) K/mcL Hgb 9.3 L (11.5-15.4) g/dL Hct 29.5 L (35.3-44.9) % Plt Count 353 (140-400) K/mcL Neutrophils # 3.4 (1.6-8.9) K/mcL BMP 08/07/16 05:37 Sodium 138 Potassium 4.4 Chloride 100 Carbon Dioxide 32 H BUN 55 H Creatinine 1.53 H Glucose 137 H Calcium 7.9 L Liver Function 08/07/16 Range/Units 05:37 Total Bilirubin 0.3 (0.2-1.2) mg/dL AST 17 (5-34) Units/L ALT 8 (0-55) Units/L Alkaline Phosphatase 84 (38-126) Units/L Albumin 2.3 L D (3.5-5.0) g/dL - ABG Interpretation ABG results: PT/INR, D-dimer PT 20.5 Seconds (9.4-12.1) H 08/04/16 16:56 - Impressions Impressions Abdomen Ultrasound 08/06/16 20:00 IMPRESSION: No acute inflammatory abnormality of the right upper quadrant. Previous cholecystectomy. Right basilar pleural effusion. D/ / Gino Balderas MD / Gino Balderas MD Interpreting Provider: Gino Balderas MD Consult Discharge Plan - Plan Referrals: Hetal Mcallister DO [Resident] - 08/23/16 4:00 pm
--- NOTE | 2016-08-07 13:16 | Neurology - Consult Note ---
Date of Encounter: 08/07/16 Time of Encounter: 13:06 History of Present Illness Chief complaint: LANETTE and proteinuria HPI: Ms. Mckeon is a 46 year old female with history of CHF, cirrhosis, COPD CAD CVA DM type II PVD presented with worsening shortness of breath of one-week duration, orthopnea, increased abdominal girth abdominal swelling and cough Has diarrhea, nausea and insomnia. Takes Lasix 40 mg a day at home. Vital signs stable labs significant for [place] of 38 creatinine 1.1 hemoglobin 10.4 Patient diagnosed with CHF Lasix 40 mg IV twice a day was started. Chest x-ray cardiomegaly small bilateral pleural effusions with bibasilar airspace densities consistent with mild pulmonary edema perihilar vasculature indistinct IV albumin was added yesterday 2-D echo on 06/2016 [address]VEF 40% CT abdomen diffuse anasarca third spacing of fluid CT abdomen mild nodularity of left adrenal gland punted bilateral nonobstructing calculi. Ultrasound from today right kidney 11.4 ultrasound from yesterday white count 11.4 right upper quadrant ultrasound recent DVT in the left upper extremity diagnosed 06/2016 Past Med Surg Social Fam HX - Past Medical History Medical history: cardiomyopathy, cirrhosis, CHF, COPD, coronary artery disease, CVA, diabetes, peripheral artery disease, renal disease, TIA, other Psychiatric history: anxiety - Past Surgical History Surgical History: appendectomy, cholecystectomy, hysterectomy, orthopedic, other , other - Social History Smoking Status: Current every day smoker Packs per day: 1/2 Smokeless Tobacco Status: No Alcohol use: none Drug use: none - Family History Father Adopted: No Family Member Ethnicity: Non- Living Status: Hx Family Cardiac Disorders: No Hx Family Respiratory Disorders: Yes Hx Family Cancer: Yes Hx Family Endocrine Disorder: Yes Hx Family Neurologic Disorders: No Medications and Allergies Albuterol Sulfate [Proair Hfa] 2 puff IH Q4H PRN 06/18/16 [History] Alprazolam [Xanax 0.5 MG Tablet] 0.5 mg PO HS PRN 06/18/16 [History] Atorvastatin [Lipitor] 40 mg PO HS 06/18/16 [History] Clopidogrel [Plavix] 75 mg PO DAILY 06/18/16 [History] Docusate [Colace] 100 mg PO BID 06/18/16 [History] Fenofibrate [Lofibra] 160 mg PO DAILY 06/18/16 [History] Furosemide [Lasix] 40 mg PO DAILY 06/18/16 [History] Gabapentin [Neurontin] 400 mg PO TID 06/18/16 [History] Isosorbide MONOnitrate (24 HR) [Imdur] 60 mg PO DAILY 06/18/16 [History] Lisinopril 2.5 mg PO DAILY 06/18/16 [History] Metoprolol XL (24 HR) Succ [Toprol Xl] 50 mg PO DAILY 06/18/16 [History] Potassium Chloride [Klor-Con Sprinkle] 10 meq PO DAILY 06/18/16 [History] Ranolazine [Ranexa] 500 mg PO BID 06/18/16 [History] Insulin DETEMIR [Levemir Flextouch] 5 unit SQ HS #1 insuln.pen 07/07/16 [Rx] Allergies Onion Allergy (Intermediate, Verified 08/05/16 09:37) Swelling of Lip/Tongue/Throat ciprofloxacin [From Cipro] Allergy (Verified 08/04/16 19:26) Hives codeine Allergy (Verified 08/04/16 19:26) Hives insulin glargine [From Lantus] Allergy (Verified 08/04/16 19:26) Hives aspirin Adverse Reaction (Verified 08/04/16 22:12) Nausea All Systems: A 10-system review of systems was performed and is negative for pertinent findings except as documented above in the HPI. Physical Examination - Vital Signs Vital Signs: Initial Vital Signs Temp Pulse Resp BP Pulse Ox 97.9 F 73 24 122/82 100 08/04/16 16:14 08/04/16 16:14 08/04/16 16:14 08/04/16 16:14 08/04/16 16:14 Results - Laboratory Findings CBC and BMP: 08/07/16 05:37 08/07/16 05:37 Abnormal lab findings: Abnormal lab results RBC 3.47 M/mcL (3.82-4.97) L 08/07/16 05:37 Hgb 9.3 g/dL (11.5-15.4) L 08/07/16 05:37 Hct 29.5 % (35.3-44.9) L 08/07/16 05:37 MCH 26.8 pg (28.0-33.3) L 08/07/16 05:37 MCHC 31.5 g/dL (31.6-35.5) L 08/07/16 05:37 RDW 15.6 % (11.5-14.5) H 08/07/16 05:37 MPV 9.1 fL (9.4-12.4) L 08/07/16 05:37 PT 20.5 Seconds (9.4-12.1) H 08/04/16 16:56 APTT 36.1 Seconds (26.0-36.0) H 08/05/16 09:20 Carbon Dioxide 32 mEq/L (19-29) H 08/07/16 05:37 BUN 55 mg/dL (7-20) H 08/07/16 05:37 Creatinine 1.53 mg/dL (0.57-1.11) H 08/07/16 05:37 Est GFR ( Amer) 44 (> 60) L 08/07/16 05:37 Est GFR (Non-Af Amer) 36 (> 60) L 08/07/16 05:37 BUN/Creatinine Ratio 36 (6-26) H 08/07/16 05:37 Glucose 137 mg/dL (70-99) H 08/07/16 05:37 POC Glucose 214 (58-89) H 08/06/16 19:44 Calculated Osmolality 303 (280-300) H 08/07/16 05:37 Calcium 7.9 mg/dL (8.6-10.8) L 08/07/16 05:37 Phosphorus 5.0 mg/dL (2.3-4.7) H 08/07/16 05:37 B-Natriuretic Peptide 2328 pg/mL (0-100) H 08/04/16 16:56 Serum Total Protein 5.1 g/dL (6.0-8.3) L 08/07/16 05:37 Albumin 2.3 g/dL (3.5-5.0) L D 08/07/16 05:37 Albumin/Globulin Ratio 0.8 (1.1-2.2) L 08/07/16 05:37 Urine Protein >=300 mg/dL (Neg-Trace) H 08/04/16 18:00 Urine Glucose (UA) 100 mg/dL (Normal) H 08/04/16 18:00 Urine Blood Moderate (Negative) H 08/04/16 18:00 Urine Microscopic RBC 5-15 per hpf (0-3) H 08/04/16 18:00 Urine Microscopic WBC 3-5 per hpf (0-3) H 08/04/16 18:00 Ur Squamous Epith Cells Many per lpf (None-Few) H 08/04/16 18:00 Consult Discharge Plan - Plan Referrals: Hetal Mcallister DO [Resident] - 08/23/16 4:00 pm
--- NOTE | 2016-08-07 13:22 | Nephrology Consult Note ---
Date of Encounter: 08/07/16 Time of Encounter: 14:25 Assessment and Plan (1) LANETTE (acute kidney injury) Current Visit: Yes Status: Acute 1. LANETTE with possible nephrotic range proteinuria. Serum creatinine is trendeding up, hemodynamic mediated sec to decreased effective intravascular volume with Lasix and lisinopril on board 24-hour urine collection is being done. Most likely has diabetic nephropathy. There is concern for myeloma given the anemia and relatively new onset of peripheral edema. Continue Lasix 40 mg IV twice a day, albumin was added yesterday. Monitor I&O' s and daily weights. Continue salt and fluid restriction Check SPEP, UPEP, will order serologic workup depending on 24-hour urine results. Discontinue lisinopril. Add Spironolactone, d/c potassium suppl Decrease gabapentin to 400 mg twice a day 2. Essential hypertension. Decrease the dose of isosorbide and metoprolol to avoid hypotension as pt is being diuresed History of Present Illness - History of Present Illness Ms. Mckeon is a 46 year old female with h/o CHF, cirrhosis, COPD, CAD, CVA, DM type II, PVD presented with worsening shortness of breath of one-week duration, orthopnea, dry cough and increasing abdominal girth. Patient noticed swelling in the ankles about 2 months ago, has been progressively worse extending to the thighs and belly. Lasix 40 mg a day was started by PCP a month ago. She is compliant with salt and fluid restriction. Vital signs stable. labs significant for Bun 38, creatinine 1.1, hemoglobin 10.4. Diagnosed with CHF. Lasix 40 mg IV twice a day was started. Chest x-ray ; cardiomegaly, small bilateral pleural effusions, bibasilar airspace densities c/w mild pulmonary edema. perihilar vasculature. CT abdomen; mild nodularity of left adrenal gland, punctate bilateral nonobstructing calculi. Third spacing of fluid. Liver and spleen were unremarkable 2-D echo 06/2016; LVEF 40% mild diastolic dysfunction moderate MR, RVSP 27. Diagnosed with left upper extremity DVT in 06/2016 reviewing labs has chronic anemia with elevated RDW, creatinine 1.1-1.3, Serum globulin is intermittently slightly elevated at 3.9, serum albumin has been low in the low to mid 2 range. UA significant for more than 300 mg/ DL of protein. 24-hour urine collection is underway. UA from 2013 is neg for protein, UA from 2015 is sig for 100 mg/dl of protein. has long-standing diabetes for at least 19 yrs, unsure if she has retinopathy. Denies taking OTC meds Past Med Surg Social Fam HX - Past Medical History Medical history: cardiomyopathy, cirrhosis, CHF, COPD, coronary artery disease, CVA, diabetes, peripheral artery disease, renal disease, TIA, other Psychiatric history: anxiety - Past Surgical History Surgical History: appendectomy, cholecystectomy, hysterectomy, orthopedic, other , other - Social History Smoking Status: Current every day smoker Packs per day: 1/2 Smokeless Tobacco Status: No Alcohol use: none Drug use: none - Family History Father Adopted: No Family Member Ethnicity: Non- Living Status: Hx Family Cardiac Disorders: No Hx Family Respiratory Disorders: Yes Hx Family Cancer: Yes Hx Family Endocrine Disorder: Yes Hx Family Neurologic Disorders: No Medications and Allergies Albuterol Sulfate [Proair Hfa] 2 puff IH Q4H PRN 06/18/16 [History] Alprazolam [Xanax 0.5 MG Tablet] 0.5 mg PO HS PRN 06/18/16 [History] Atorvastatin [Lipitor] 40 mg PO HS 06/18/16 [History] Clopidogrel [Plavix] 75 mg PO DAILY 06/18/16 [History] Docusate [Colace] 100 mg PO BID 06/18/16 [History] Fenofibrate [Lofibra] 160 mg PO DAILY 06/18/16 [History] Furosemide [Lasix] 40 mg PO DAILY 06/18/16 [History] Gabapentin [Neurontin] 400 mg PO TID 06/18/16 [History] Isosorbide MONOnitrate (24 HR) [Imdur] 60 mg PO DAILY 06/18/16 [History] Lisinopril 2.5 mg PO DAILY 06/18/16 [History] Metoprolol XL (24 HR) Succ [Toprol Xl] 50 mg PO DAILY 06/18/16 [History] Potassium Chloride [Klor-Con Sprinkle] 10 meq PO DAILY 06/18/16 [History] Ranolazine [Ranexa] 500 mg PO BID 06/18/16 [History] Insulin DETEMIR [Levemir Flextouch] 5 unit SQ HS #1 insuln.pen 04/05/17 [Rx] Allergies Onion Allergy (Intermediate, Verified 08/05/16 09:37) Swelling of Lip/Tongue/Throat ciprofloxacin [From Cipro] Allergy (Verified 08/04/16 19:26) Hives codeine Allergy (Verified 08/04/16 19:26) Hives insulin glargine [From Lantus] Allergy (Verified 08/04/16 19:26) Hives aspirin Adverse Reaction (Verified 08/04/16 22:12) Nausea Review of Systems All Systems review (narrative): Has exertional shortness of breath and orthopnea. Swelling in the ankles remains the same c/o generalized weakness. All other review of symptoms was done and is negative. Patient does not appear to have much insight into medical problems Exam - Vital Signs Vital signs: Initial Vital Signs Temp Pulse Resp BP Pulse Ox 97.9 F 73 24 122/82 100 08/04/16 16:14 08/04/16 16:14 08/04/16 16:14 08/04/16 16:14 08/04/16 16:14 Vital Signs - Last 8 Hours Temp Pulse Resp BP Pulse Ox 08/07/16 11:26 98.2 F 71 16 132/75 95 08/07/16 07:36 97.5 F L 68 16 120/70 91 Intake and Output 08/06/16 08/07/16 08/07/16 23:59 07:59 15:59 Intake Total 500 / 500 100 / 100 560 / 560 Output Total 800 / 800 1300 / 1300 Balance -300 / -300 -1200 / -1200 560 / 560 Intake: IV Fluids 100 / 100 100 / 100 Flexbumin 25 gm In 100 ml 100 / 100 100 / 100 @ 60 mls/hr IVPB Q8HR [facility] Rx#:[id number] Oral 400 / 400 0 / 0 560 / 560 Output: Urine 800 / 800 1300 / 1300 Other: Meal Dinner Percent of Meal Consumed 65% Weight 87.3 kg Blood Glucose* 214 134 273 Patient Weight 08/07/16 23:59 Weight 87.3 kg - General Appearance Exam: HEENT ; pallor present no icterus NECK ; supple no JVD or lymphadenopathy no carotid bruit CVS; s1s2 present, regular, no murmurs RESP; decreased air entry, clear to auscultation ABD; distended, soft, NT, BS present, no organomegaly, no bruits. Abdominal wall edema is present EXT; 3+ edema, unable to palpateDP pulses. rt great toe was amputated CASE COORDINATOR; alert oriented -3, CN grossly intact Results - Lab Results 08/07/16 05:37 08/07/16 05:37 Most recent lab results Calcium 7.9 mg/dL (8.6-10.8) L 08/07/16 05:37 Phosphorus 5.0 mg/dL (2.3-4.7) H 08/07/16 05:37 Magnesium 1.8 mg/dL (1.6-2.6) 08/07/16 05:37 Consult Discharge Plan - Plan Referrals: Hetal Mcallister DO [Resident] - 08/23/16 4:00 pm
[2016-08-07] MEDS ORDERED: Isosorbide MONOnitrate (24 HR) 60 MG TAB.ER.24H PO SCH (14:26)
[2016-08-07] MEDS: Isosorbide MONOnitrate (24 HR) 30 MG TAB.ER.24H PO SCH (16:48)
[2016-08-07] MEDS: *HR* Rivaroxaban 10 MG TABLET PO SCH (16:48)
[2016-08-07] MEDS: ALPRAZolam 0.5 MG TABLET PO PRN (20:50)
[2016-08-07] MEDS: Spironolactone 25 MG TABLET PO SCH (20:51)
[2016-08-07] MEDS: Ondansetron 4 MG/2 ML VIAL IVP PRN (21:13)
[2016-08-08] MEDS: *HR* OxyCODONE/APAP 5/325 TABLET PO PRN ×2 (04:04→23:02)
[2016-08-08 05:13] LABS: Calcium 8.3 mg/dL (8.6-10.8); Phosphorous 4.8 mg/dL (2.3-4.7); Potassium 4.7 mEq/L (3.5-4.5)
[2016-08-08] MEDS: *HR* Heparin 5,000 UNIT/ML VIAL SQ SCH ×2 (05:21→17:22)
[2016-08-08] MEDS: Ondansetron 4 MG/2 ML VIAL IVP PRN ×2 (05:22→23:07)
[2016-08-08 05:27] LABS: Albumin 2.9 g/dL (3.5-5.0)
[2016-08-08 05:48] LABS: Folate 7.8 ng/mL (7.0-31.4)
[2016-08-08] MEDS: Insulin LISPRO 300 UNITS/3 ML VIAL SQ SCH ×4 (08:12→20:35)
[2016-08-08] MEDS: Fenofibrate 54 MG TABLET PO SCH (08:47)
[2016-08-08] MEDS: Metoprolol XL (24 HR) Succ 50 MG TAB.ER.24H PO SCH (08:47)
[2016-08-08] MEDS: Magnesium Oxide 400 MG TABLET PO SCH ×2 (08:47→20:36)
[2016-08-08] MEDS: Gabapentin 400 MG CAPSULE PO SCH ×2 (08:47→20:36)
[2016-08-08] MEDS: Spironolactone 25 MG TABLET PO SCH (08:48)
[2016-08-08] MEDS: Furosemide 40 MG/4 ML VIAL IVP SCH ×2 (08:48→20:36)
[2016-08-08] MEDS: Ranolazine 500 MG TAB.ER.12H PO SCH ×2 (08:48→20:35)
[2016-08-08] MEDS: Isosorbide MONOnitrate (24 HR) 30 MG TAB.ER.24H PO SCH (08:48)
[2016-08-08] MEDS: Nicotine 21 MG PATCH.TD24 TD SCH (08:48)
--- NOTE | 2016-08-08 12:35 | Internal Med Progress Note ---
Date of Encounter: 08/08/16 Time of Encounter: 12:10 - Assessment and plan (1) LANETTE (acute kidney injury) Current Visit: Yes Status: Acute Assessment and plan: Noted to have normal serum creatinine until May 2016 since then she has had GFR between 40 and 50s. Could be diabetic nephropathy given her proteinuria. Patient also presented with new onset and progressive anasarca, needs workup for other causes for nephrotic syndrome. Serum creatinine currently noted to be worsening due to use of IV diuretics. Nephrology follow-up appreciated, recommend to increase IV Lasix to 80 mg twice daily, hold spironolactone due to mild hyperkalemia, continue to monitor urine output and follow up [id number] urine protein, protein creatinine ratio, serum and urine electrophoresis. (2) Anasarca Current Visit: Yes Status: Acute Assessment and plan: Unclear duration but new onset per patient. Associated with proteinuria. Could be related to underlying CHF versus nephrotic syndrome. Off IV albumin at this time. Continue IV Lasix as above. Monitor urine output. Nephrology on board. (3) Abdominal pain Current Visit: Yes Status: Resolved Assessment and plan: Abdominal pain and distention could be due to volume overload and anasarca. Improving. Pain control with when necessary oral Percocet. Noncontrast CT abdomen/pelvis shows no acute abdominal pathology except anasarca and significant subcutaneous edema. Right upper quadrant ultrasound report reviewed , no evidence of cirrhosis or other acute abnormality. Qualifiers: Abdominal location: generalized Qualified Code(s): R10.84 - Generalized abdominal pain (4) Acute CHF Current Visit: Yes Status: Acute Assessment and plan: Patient noted to have hypoxia, dyspnea and significant peripheral edema. However doubtful if anasarca is completely due to acute CHF. Continue IV Lasix along with fluid restriction, strict urine output monitoring and daily weights. Patient is unable to tolerate fluid restriction to 1.2 L per day, requests to increase it to 1.5 L per day. Noted to have appropriate urine output. Continue beta cralos. Echocardiogram from June 2016 shows moderately decreased EF of 40%, mild left ventricular diastolic dysfunction. We will repeat echocardiogram with limited views. Supplemental oxygen and supportive care. Qualifiers: Congestive heart failure type: combined Qualified Code(s): I50.41 - Acute combined systolic (congestive) and diastolic (congestive) heart failure (5) Diabetes mellitus Current Visit: Yes Status: Chronic Assessment and plan: Accu-Chek blood glucose monitoring, noted to have slightly elevated blood sugars. We will start basal insulin and continue sliding scale insulin. Diabetic diet. 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 of insulin (6) CVA (cerebral vascular accident) Current Visit: Yes Status: Inactive Qualifiers: CVA mechanism: unspecified Qualified Code(s): I63.9 - Cerebral infarction, unspecified (7) PVD (peripheral vascular disease) Current Visit: Yes Status: Chronic (8) Tobacco abuse Current Visit: Yes Status: Chronic (9) DVT (deep venous thrombosis) Current Visit: Yes Status: Chronic Assessment and plan: Continue anticoagulation with Xarelto; Qualifiers: DVT location: upper extremity Affected thrombotic vein of extremity: brachial Laterality: left Chronicity: chronic Qualified Code(s): I82.722 - 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 (10) CAD (coronary artery disease) Current Visit: Yes Status: Chronic Qualifiers: Coronary Disease-Associated Artery/Lesion type: craig artery [place] vs. transplanted heart: craig heart Associated angina: without angina Qualified Code(s): I25.10 - Atherosclerotic heart disease of craig coronary artery without angina pectoris (11) COPD (chronic obstructive pulmonary disease) Current Visit: Yes Status: Chronic Qualifiers: COPD type: unspecified COPD Qualified Code(s): J44.9 - Chronic obstructive pulmonary disease, unspecified (12) Hypertension Current Visit: Yes Status: Chronic Assessment and plan: Blood pressure noted to be well controlled. Metoprolol and Imdur doses have been decreased. Continue current regimen. Qualifiers: Hypertension type: essential hypertension Qualified Code(s): I10 - Essential (primary) hypertension - Subjective Interval history: No new complaints; requests to have fluid restriction increased to 1.5L/day as she cannot follow 1.2L/day. Slightly improving leg swelling; no dyspnea or chest pain; - Constitutional Vitals: Temp Pulse Resp BP Pulse Ox 97.9 F 67 16 117/68 90 08/08/16 11:15 08/08/16 11:15 08/08/16 11:15 08/08/16 11:15 08/08/16 11:15 General appearance: Present: A&O X 3 (anasarca), answers questions appropriately - Respiratory Respiratory exam: Present: rales (faint bibasal crackles). Absent: accessory muscle use, rhonchi, wheezes - Cardiovascular Cardiovascular exam: Present: RRR, +S1, +S2, +S3. Absent: diastolic murmur, gallop, rubs, systolic murmur - GI/Abdominal GI/Abdominal exam: Present: normal bowel sounds, soft (subcutaneous edema), no peritoneal signs. Absent: distended, tenderness - Extremities Exam Extremities exam: Present: full ROM, pedal edema (3+ pitting pedal edema, slightly improving in lower legs), warm, radial pulses palpable and symetrical. Absent: calf tenderness, cyanotic - Neurological Exam Neurological exam: Present: CN II-XII intact, oriented X3, no focal deficits. Absent: pronater drift, facial droop, speech deficit Internal Medicine: Result - Labs CBC & Chem 7: 08/07/16 05:37 08/08/16 04:16 Labs: BMP 08/08/16 04:16 Sodium 139 Potassium 4.7 H Chloride 99 Carbon Dioxide 30 H BUN 62 H Creatinine 1.68 H Glucose 116 H Calcium 8.3 L Liver Function 08/08/16 Range/Units 04:16 Albumin 2.9 L D (3.5-5.0) g/dL - ABG Interpretation ABG results: PT/INR, D-dimer PT 20.5 Seconds (9.4-12.1) H 08/04/16 16:56 Consult Discharge Plan - Plan Referrals: Hetal Mcallister DO [Resident] - 08/23/16 4:00 pm
--- NOTE | 2016-08-08 13:51 | Nephrology Progress Note ---
Date of Encounter: 08/08/16 Time of Encounter: 13:49 - Assessment and Plan (1) LANETTE (acute kidney injury) Current Visit: Yes Status: Acute 1. ARF with anasarca and volume overload. Would accept some degree of azotemia as pt needs diuretics for volume overload Mild hyperkalemia and hyperphosphatemia - 24-hour urine, SPEP and UPEP are pending - Order serologic w/u - DC Spironolactone, increase Lasix to 80 mg twice a day 2. Chronic Anemia. Iron sat is borderline low at 14%. B12, folate and ferritin are normal. Start po iron 3. Hypertension, BP stable Subjective Principal diagnosis: arf, anasarca Interval history: Denies SOB at rest, has orthopnea and shortness of breath with walking to the bathroom. Requiring 2 L of oxygen. Swelling remains about the same. Urine output documented as 1.3 L yesterday Objective - Vital Signs Vital signs: Vital Signs Temp Pulse Resp BP Pulse Ox 08/08/16 11:15 97.9 F 67 16 117/68 90 08/08/16 07:36 97.5 F L 64 16 107/65 91 08/08/16 02:42 98.2 F 73 18 124/68 92 08/07/16 22:38 97.9 F 67 18 145/73 90 08/07/16 18:37 98.6 F 74 16 151/80 97 08/07/16 15:33 98.0 F 71 16 150/70 95 Intake and Output 08/07/16 08/08/16 08/08/16 23:59 07:59 15:59 Intake Total 640 / 640 Output Total 1000 / 1000 Balance 640 / 640 -1000 / -1000 Intake: Oral 640 / 640 Output: Urine 1000 / 1000 Other: # Voids 1 1 Weight 87.543 kg Blood Glucose* 210 139 194 Patient Weight 08/08/16 23:59 Weight 87.543 kg - General Appearance Exam: CVS; s1s2 present, regular, no murmurs RESP; decreased air entry, clear ABD; soft, NT, BS present, abdominal wall edema present EXT; 3+ edema - Lab 08/07/16 05:37 08/08/16 04:16 Most recent lab results Calcium 8.3 mg/dL (8.6-10.8) L 08/08/16 04:16 Phosphorus 4.8 mg/dL (2.3-4.7) H 08/08/16 04:16 Magnesium 2.0 mg/dL (1.6-2.6) 08/08/16 04:16 Consult Discharge Plan - Plan Referrals: Hetal Mcallister DO [Resident] - 08/23/16 4:00 pm
[2016-08-08] MEDS: *HR* Rivaroxaban 10 MG TABLET PO SCH (17:22)
[2016-08-08] MEDS: ALPRAZolam 0.5 MG TABLET PO PRN (23:02)
[2016-08-08] MEDS ORDERED: ALPRAZolam 0.5 MG TABLET PO ONE (23:25)
[2016-08-08] MEDS ORDERED: *HR* OxyCODONE/APAP 5/325 TABLET PO ONE (23:25)
[2016-08-09 00:17] LABS: Adenovirus F 40/41 PCR Not detected (Not detect); Astrovirus PCR Not detected (Not detect); Campylobacter by PCR Not detected (Not detect); Cryptosporidium by PCR Not detected (Not detect); Cyclospora cayetanensis PCR Not detected (Not detect); E. coli O157 by PCR Not detected (Not detect); Entamoeba histolytica PCR Not detected (Not detect); Enteroaggregative E.coli(EAEC) Not detected (Not detect); Enteropathogenic E.coli(EPEC) Not detected (Not detect); Enterotoxigenic E.coli (ETEC) Not detected (Not detect); Giardia lamblia PCR Not detected (Not detect); Norovirus GI/GII PCR Not detected (Not detect); Plesiomonas shigelloides PCR Not detected (Not detect); Rotavirus A PCR Not detected (Not detect); Salmonella PCR Not detected (Not detect); Sapovirus PCR Not detected (Not detect); Shig/EnteroinvasiveE coli EIEC Not detected (Not detect); Shigalike tox-prod E coli STEC Not detected (Not detect); Vibrio PCR Not detected (Not detect); Vibrio cholerae PCR Not detected (Not detect); Yersinia enterocolitica PCR Not detected (Not detect)
[2016-08-09 04:04] LABS: Albumin 2.9 g/dL (3.5-5.0); Calcium 8.7 mg/dL (8.6-10.8); Phosphorous 4.9 mg/dL (2.3-4.7); Potassium 5.2 mEq/L (3.5-4.5)
[2016-08-09] MEDS: *HR* Heparin 5,000 UNIT/ML VIAL SQ SCH ×2 (05:59→16:58)
[2016-08-09 08:17] LABS: Total Volume 24 Hour,Urine 2.2 Liters (0.60-1.60)
[2016-08-09] MEDS: Nicotine 21 MG PATCH.TD24 TD SCH (09:01)
[2016-08-09] MEDS: Fenofibrate 54 MG TABLET PO SCH (09:02)
[2016-08-09] MEDS: Isosorbide MONOnitrate (24 HR) 30 MG TAB.ER.24H PO SCH (09:02)
[2016-08-09] MEDS: Gabapentin 400 MG CAPSULE PO SCH ×2 (09:02→21:42)
[2016-08-09] MEDS: Ranolazine 500 MG TAB.ER.12H PO SCH ×2 (09:02→21:42)
[2016-08-09] MEDS: Magnesium Oxide 400 MG TABLET PO SCH ×2 (09:02→21:42)
[2016-08-09] MEDS: Metoprolol XL (24 HR) Succ 50 MG TAB.ER.24H PO SCH (09:03)
[2016-08-09] MEDS: Insulin LISPRO 300 UNITS/3 ML VIAL SQ SCH ×4 (09:08→21:30)
[2016-08-09] MEDS: Furosemide 40 MG/4 ML VIAL IVP SCH ×2 (09:10→21:42)
[2016-08-09] MEDS: *HR* OxyCODONE/APAP 5/325 TABLET PO PRN ×2 (09:16→21:41)
[2016-08-09] MEDS: Insulin DETEMIR 100 UNIT/ML X5UNITS SQ SCH (09:16)
--- NOTE | 2016-08-09 09:19 | Nephrology Progress Note ---
Date of Encounter: 08/09/16 Time of Encounter: 09:15 - Assessment and Plan (1) Acute kidney failure, unspecified Status: Acute The patient has progressive acute kidney injury in the setting of lower extremity swelling and diuresis. She has a history of reduced left ventricular ejection fraction of 40% and history of congestive heart failure. She has had previous thoracentesis procedures for pleural effusions. Review of previous labs show that she has had persistent proteinuria since 2015 likely related to her diabetes. It is unclear as to whether or not she has nephrotic syndrome. 24 hour urine has been completed results are pending. Other serologies of also been ordered and are currently pending. If her creatinine continues to worsen Riggan have to reduce her Lasix. I am going to order a venous duplex to rule out DVTs. Qualifiers: Acute renal failure type: unspecified Qualified Code(s): N17.9 - Acute kidney failure, unspecified (2) Isolated proteinuria Current Visit: Yes Status: Acute Qualifiers: Isolated proteinuria type: without specific morphologic lesion Qualified Code(s): R80.0 - Isolated proteinuria (3) Anasarca Current Visit: Yes Status: Acute (4) Bilateral pleural effusion Current Visit: No Status: Acute Subjective Principal diagnosis: arf, anasarca Interval history: Patient reports still having shortness of breath. She still has a great deal of edema. Her renal function continues to worsen. Urine output is recorded as 1.6 L. Patient reports a history of diabetes for 19 years. She denies any history of retinopathy although she has not seen an can cleaner within the past 2-3 years. She denies any previous history of proteinuria although review of previous lab studies showed that she has had significant proteinuria on various urinalyses since 2014. Objective - Vital Signs Vital signs: Vital Signs Temp Pulse Resp BP Pulse Ox 08/09/16 07:03 97.7 F 64 16 166/83 94 08/09/16 03:42 97.7 F 62 17 124/66 94 08/08/16 22:50 98.4 F 77 18 159/95 94 08/08/16 19:19 97.7 F 73 16 152/81 95 Intake and Output 08/08/16 08/09/16 08/09/16 23:59 07:59 15:59 Intake Total 760 / 760 Output Total 600 / 600 Balance 160 / 160 Intake: Oral 760 / 760 Output: Urine 400 / 400 Emesis 200 / 200 Other: Stool Size Moderate Large Stool Consistency soft formed formed Stool Characteristics Normal for Patient Stool Color Brown Brown # Voids 1 # Bowel Movements 1 Weight 88.2 kg Blood Glucose* 130 169 Patient Weight 08/09/16 23:59 Weight 88.2 kg - General Appearance Exam: Patient is alert and oriented. She is in no acute distress. Lungs diminished breath sounds especially in the bases. Heart regular rhythm. Abdomen is soft. Patient has diffuse tenderness. There is no guarding or rigidity. Patient has lower extremity swelling up to the thighs. - Lab 08/07/16 05:37 08/09/16 03:28 Most recent lab results Calcium 8.7 mg/dL (8.6-10.8) 08/09/16 03:28 Phosphorus 4.9 mg/dL (2.3-4.7) H 08/09/16 03:28 Magnesium 2.0 mg/dL (1.6-2.6) 08/09/16 03:28 Consult Discharge Plan - Plan Referrals: Hetal Mcallister DO [Resident] - 08/23/16 4:00 pm
[2016-08-09 09:55] LABS: Creatinine 24 Hour,Urine 0.42 g/day (0.71-1.65); Protein/Creatinine Ratio,Urine 5.84 mg/mg (0-0.20)
[2016-08-09 10:31] LABS: Hepatitis B Surface Antigen Nonreactive (Nonreactive); Hepatitis C Virus Antibody Nonreactive (Nonreactive)
--- NOTE | 2016-08-09 10:40 | ECHO - Doppler Report ---
Echocardiogram Name: Antionette Mckeon Date of Study: 08/09/2016 Date: 1970 Ht: 68.0 in Medical Record#: [id number] Age: 46 Wt: 195.0 lb Gender: Female BSA: 2.02 Order #: [id number] Location: [facility] Room #: [id number] Reading Physician: Jerrell Lima DO, FACC, FASE Manager Valuation: Asher Glover RDCS Ordering Physician: Shahrzad Diamond MD Primary Physician: None Indications: Edema, Hypoxia, Murmur Impressions: Mild dilated left ventricle with moderate global left ventricular systolic dysfunction. LVEF 35-40%. Large pleural effusion. Limited study performed. Valves not assessed. Left Ventricular Wall Motion: Rest Echo Findings The apex, apical inferior, mid inferior, basal inferior, apical anterior, mid anterior, basal anterior, apical septal, mid inferior septal, basal inferior septal, apical lateral, mid anterior lateral, basal anterior lateral, mid anterior septal, mid inferior lateral, basal anterior septal and basal inferior lateral martinez were hypokinetic. Findings: Study Quality * Technically adequate exam. ECG Findings * Normal sinus rhythm. Left Ventricle * Mild dilated left ventricle with moderate global left ventricular systolic dysfunction. * LVEF 35-40%. Right Ventricle * Normal right ventricular structure and function. Left Atrium * Moderately dilated left atrium. Right Atrium * Mildly dilated right atrium. IVC * The IVC is not dilated. * < 50% respiratory change. Pleural Effusion * Large pleural effusion. History Hypertension Diabetes Hypercholesteremia History of Smoking Years 40 Packs 0.5 Family History of CAD History of CAD/PTCA Myocardial Infarction Congestive Heart Failure 06/18/16 a Previous Echo was performed. Measurements: BP: 166/ 83 2D Normal Values RVIDd: 3.12 cm <2.7 cm IVSd: 1.13 cm 0.6 - 1.0 cm LVIDd: 5.89 cm 3.7 - 5.6 cm LVPWd: .89 cm 0.6 - 1.1 cm LVIDs: 5.28 cm 1.5 - 3.6 cm AO: 2.60 cm < 4.0 cm LA: 3.60 cm 2.0 - 4.0cm %FS: 10.40 cm >25 % LA volume: 86 Updated by Jerrell Lima DO, FACC, FASE, FASNC on 08/09/2016 10:34:34 AM electronically signed on 08/09/2016 10:35:06 AM with status of Final Wall Motion [place]: 1=Normal, 2=Hypokinesis, 3=Akinesis, 4=Dyskinesis, 5=Aneurysmal, 6=Hyperkinetic, X=Not Visualized (Blank)=Missing
--- NOTE | 2016-08-09 12:42 | Internal Med Progress Note ---
Date of Encounter: 08/09/16 Time of Encounter: 11:30 - Assessment and plan (1) Pleural effusion Current Visit: Yes Status: Acute Assessment and plan: Patient is noted to have bilateral moderate to severe pleural effusions, right more than left. Likely secondary to CHF, hypoalbuminemia and anasarca. Hold anticoagulation for now, plan for ultrasound-guided thoracentesis by IR in a.m. (2) LANETTE (acute kidney injury) Current Visit: Yes Status: Acute Assessment and plan: Noted to have normal serum creatinine until May 2016 since then she has had GFR between 40 and 50s. Could be diabetic nephropathy given her proteinuria. Patient also presented with new onset and progressive anasarca, needs workup for other causes for nephrotic syndrome. received 4 doses of IV albumin. Serum creatinine currently continues to get worse due to use of IV diuretics. Nephrology on board. 24-hour urine protein shows 2.5 g proteinuria, protein creatinine ratio elevated at 5.8. Serum and urine protein electrophoresis pending. (3) Anasarca Current Visit: Yes Status: Acute Assessment and plan: Unclear duration but new onset per patient. Associated with proteinuria. Could be related to underlying CHF versus nephrotic syndrome. Off IV albumin at this time. Continue IV Lasix as above. Monitor urine output. Nephrology on board. (4) Abdominal pain Current Visit: Yes Status: Resolved Qualifiers: Abdominal location: generalized Qualified Code(s): R10.84 - Generalized abdominal pain (5) Acute CHF Current Visit: Yes Status: Acute Assessment and plan: Patient noted to have hypoxia, dyspnea and significant peripheral edema. However doubtful if anasarca is completely due to acute CHF. Continue IV Lasix along with fluid restriction, strict urine output monitoring and daily weights. Patient is unable to tolerate fluid restriction to 1.2 L per day, requests 1.5 L per day. Noted to have appropriate urine output. Continue beta carlos. Repeat echocardiogram shows moderately decreased ejection fraction at 35-40% and significant pleural effusion. Supplemental oxygen and supportive care. Clinical condition at this time does not seem to be improving. will consider cardiology consult although it is difficult to balance cardiac and renal function between IV diuresis and worsening serum creatinine. High risk for complications. CODE STATUS again discussed with patient, who is alert and oriented and firmly states that she would like to be DNR/DNI. Qualifiers: Congestive heart failure type: combined Qualified Code(s): I50.41 - Acute combined systolic (congestive) and diastolic (congestive) heart failure (6) Diabetes mellitus Current Visit: Yes Status: Chronic Assessment and plan: Accu-Chek blood glucose monitoring, blood sugars noted to be better controlled today. Continue basal bolus insulin regimen. Diabetic diet. 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 Chronic kidney disease stage: stage 3 (moderate) Qualified Code(s): E11.22 - Type 2 diabetes mellitus with diabetic chronic kidney disease; N18.3 - Chronic kidney disease, stage 3 (moderate); Z79.4 - emt intermediate (current) use of insulin (7) CVA (cerebral vascular accident) Current Visit: Yes Status: Inactive Qualifiers: CVA mechanism: unspecified Qualified Code(s): I63.9 - Cerebral infarction, unspecified (8) PVD (peripheral vascular disease) Current Visit: Yes Status: Chronic (9) Tobacco abuse Current Visit: Yes Status: Chronic (10) DVT (deep venous thrombosis) Current Visit: Yes Status: Chronic Assessment and plan: Hold anticoagulation with Xarelto for now, for possible thoracentesis; Qualifiers: DVT location: upper extremity Affected thrombotic vein of extremity: brachial Laterality: left Chronicity: chronic Qualified Code(s): I82.722 - 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 (11) CAD (coronary artery disease) Current Visit: Yes Status: Chronic Qualifiers: Coronary Disease-Associated Artery/Lesion type: [place] artery [place] vs. transplanted heart: [place] heart Associated angina: without angina Qualified Code(s): I25.10 - Atherosclerotic heart disease of [place] coronary artery without angina pectoris (12) COPD (chronic obstructive pulmonary disease) Current Visit: Yes Status: Chronic Qualifiers: COPD type: unspecified COPD Qualified Code(s): J44.9 - Chronic obstructive pulmonary disease, unspecified (13) Hypertension Current Visit: Yes Status: Chronic Assessment and plan: Blood pressure noted to be well controlled. Metoprolol and Imdur doses have been decreased. Continue current regimen. Qualifiers: Hypertension type: essential hypertension Qualified Code(s): I10 - Essential (primary) hypertension - Subjective Interval history: No change in clinical condition; continues to have some dyspnea on exertion, requiring supplemental O2; reports diarrhea; no chest pain; persistent anasarca; - Constitutional Vitals: Temp Pulse Resp BP Pulse Ox 97.5 F L 67 16 157/86 94 08/09/16 11:36 08/09/16 11:36 08/09/16 11:36 08/09/16 11:36 08/09/16 11:36 General appearance: Present: A&O X 3 (anasarca), answers questions appropriately - Respiratory Respiratory exam: Present: decreased breath sounds (decreased at B/L bases, with intermittent crackles), CTAB. Absent: accessory muscle use, rales, rhonchi , wheezes - Cardiovascular Cardiovascular exam: Present: RRR, +S1, +S2. Absent: diastolic murmur, gallop, rubs, systolic murmur - GI/Abdominal GI/Abdominal exam: Present: normal bowel sounds, soft, no peritoneal signs. Absent: distended, tenderness - Extremities Exam Extremities exam: Present: full ROM, pedal edema (3+ pitting pedal edema B/L LE upto hips), warm, radial pulses palpable and symetrical. Absent: calf tenderness, cyanotic - Neurological Exam Neurological exam: Present: CN II-XII intact, oriented X3, no focal deficits. Absent: pronater drift, facial droop, speech deficit Internal Medicine: Result - Labs CBC & Chem 7: 08/07/16 05:37 08/09/16 03:28 Labs: BMP 08/09/16 03:28 Sodium 138 Potassium 5.2 H Chloride 97 L Carbon Dioxide 31 H BUN 70 H Creatinine 2.04 H Glucose 184 H Calcium 8.7 Liver Function 08/09/16 Range/Units 03:28 Albumin 2.9 L (3.5-5.0) g/dL - ABG Interpretation ABG results: PT/INR, D-dimer PT 20.5 Seconds (9.4-12.1) H 08/04/16 16:56 Consult Discharge Plan - Plan Referrals: Hetal Mcallister DO [Resident] - 08/23/16 4:00 pm
--- NOTE | 2016-08-09 16:20 | Venous Imaging Report ---
LE Venous Duplex Patient Name:Antionette Mckeon Order Number:[id number] Procedure Date:08/09/2016 Date:1970Age:46 yrs Gender:Female Location:[facility] Room #: [address] Usher:Christie Miller Referring MD:Sofy Beltran MD crusher operator:None Reading MD:Arie Salinas MD , FACS Secondary Indications: Risk Factors Yes/No Hx of DVT Yes Anticoagulants Yes Impressions: Bilateral lower extremity: normal superficial and deep exam. Recommendations: After imaging the patient returned to their room. Findings Venous Duplex Results: Right: Venous imaging of the lower extremity reveals full patency and normal vessel compressibility of the right distal iliac, right common femoral, right superficial femoral, right popliteal, right posterior tibial, right peroneal, right great saphenous and right lesser saphenous. Doppler signals in the evaluated veins were normal. Left: Venous imaging of the lower extremity reveals full patency and normal vessel compressibility of the left distal iliac, left common femoral, left superficial femoral, left popliteal, left posterior tibial, left peroneal, left great saphenous and left lesser saphenous. Doppler signals in the evaluated veins were normal. Lower Extremity Venous Duplex Side Vein Compress Spontaneous Flow Augment Diameter (cm) Depth (cm) Right Distal Iliac Normal Yes Phasic Yes Right Common Femoral Normal Yes Phasic Yes Right Superficial Femoral Normal Yes Phasic Yes Right Popliteal Normal Yes Phasic Yes Right Posterior Tibial Normal Yes Phasic Yes Right Peroneal Normal Yes Phasic Yes Right Great Saphenous Normal Yes Phasic Yes Right Lesser Saphenous Normal Yes Phasic Yes Left Distal Iliac Normal Yes Phasic Yes Left Common Femoral Normal Yes Phasic Yes Left Superficial Femoral Normal Yes Phasic Yes Left Popliteal Normal Yes Phasic Yes Left Posterior Tibial Normal Yes Phasic Yes Left Peroneal Normal Yes Phasic Yes Left Great Saphenous Normal Yes Phasic Yes Left Lesser Saphenous Normal Yes Phasic Yes Updated by Arie Salinas MD, FACS on 08/09/2016 4:15:26 PM Arie Salinas MD electronically signed on 08/09/2016 4:16:30 PM with status of Final
[2016-08-09] MEDS: ALPRAZolam 0.5 MG TABLET PO PRN (21:42)
[2016-08-09] MEDS ORDERED: *HR* Morphine 2 MG/ML SYRINGE IVP ONE (23:28)
[2016-08-10 05:20] LABS: Albumin 2.7 g/dL (3.5-5.0); Calcium 8.9 mg/dL (8.6-10.8); Phosphorous 3.9 mg/dL (2.3-4.7); Potassium 4.2 mEq/L (3.5-4.5)
[2016-08-10 05:25] LABS: Albumin 2.7 g/dL (3.5-5.0); Albumin/Globulin Ratio 0.9 (1.1-2.2); Bilirubin,Total 0.6 mg/dL (0.2-1.2); Calcium 8.9 mg/dL (8.6-10.8); Globulin 3.1 g/dL (2.4-3.5); Potassium 4.2 mEq/L (3.5-4.5); Total Protein 5.8 g/dL (6.0-8.3)
[2016-08-10] MEDS: *HR* Heparin 5,000 UNIT/ML VIAL SQ SCH (06:53)
[2016-08-10 07:38] LABS: Complement Component 3 104 mg/dL (88-201); Complement Component 4 23 mg/dL (10-40)
[2016-08-10] MEDS: Nicotine 21 MG PATCH.TD24 TD SCH (08:09)
[2016-08-10] MEDS: Fenofibrate 54 MG TABLET PO SCH (08:10)
[2016-08-10] MEDS: Ranolazine 500 MG TAB.ER.12H PO SCH ×2 (08:10→20:00)
[2016-08-10] MEDS: Isosorbide MONOnitrate (24 HR) 30 MG TAB.ER.24H PO SCH (08:10)
[2016-08-10] MEDS: Furosemide 40 MG/4 ML VIAL IVP SCH ×2 (08:11→19:58)
[2016-08-10] MEDS: Gabapentin 400 MG CAPSULE PO SCH ×2 (08:11→20:00)
[2016-08-10] MEDS: Magnesium Oxide 400 MG TABLET PO SCH ×2 (08:11→19:59)
[2016-08-10] MEDS: Metoprolol XL (24 HR) Succ 50 MG TAB.ER.24H PO SCH (08:11)
--- NOTE | 2016-08-10 08:18 | Nephrology Progress Note ---
Date of Encounter: 08/10/16 Time of Encounter: 08:15 - Assessment and Plan (1) Acute kidney failure, unspecified Status: Acute The patient has progressive acute kidney injury in the setting of lower extremity swelling, a diminished ejection fraction, and diuresis. Her renal function is actually a bit better today. EF is 35-40%. 24-hour urine protein excretion is 2.4 g. Complement studies are normal. Hepatitis studies are normal patient appears to have more of a clinical picture of acute systolic congestive heart failure. Renal function is somewhat improved compared to yesterday. I would continue with the same diuretic regimen. I suspect her proteinuria is related to diabetic renal disease. Qualifiers: Acute renal failure type: unspecified Qualified Code(s): N17.9 - Acute kidney failure, unspecified (2) Isolated proteinuria Current Visit: Yes Status: Acute Qualifiers: Isolated proteinuria type: without specific morphologic lesion Qualified Code(s): R80.0 - Isolated proteinuria (3) Anasarca Current Visit: Yes Status: Acute (4) Bilateral pleural effusion Current Visit: No Status: Acute Subjective Principal diagnosis: arf, anasarca Interval history: The patient states she is breathing better. She did undergo a thoracentesis yesterday. There is 0 urine output recorded. Creatinine is actually improved a bit. She continues on Lasix. On physical exam her lower extremity swelling seems to be a bit better. Echocardiogram shows an EF of 35-40%. Objective - Vital Signs Vital signs: Vital Signs Temp Pulse Resp BP Pulse Ox 08/10/16 07:47 97.8 F 58 16 144/74 96 08/10/16 03:10 97.4 F L 59 20 153/78 92 08/09/16 23:32 97.4 F L 60 18 132/69 95 08/09/16 21:30 97.6 F 63 18 132/71 93 08/09/16 13:35 97.6 F 68 16 145/76 97 08/09/16 11:36 97.5 F L 67 16 157/86 94 Intake and Output 08/09/16 08/10/16 08/10/16 23:59 07:59 15:59 Other: # Urine Diapers 1 Weight 83.7 kg Blood Glucose* 173 142 Patient Weight 08/10/16 23:59 Weight 83.7 kg - General Appearance Exam: Patient is alert and oriented. She is in no acute distress. She appears chronically ill. Lungs demonstrate diminished breath sounds in the bases. Heart regular rate and rhythm. Abdomen is benign. There is no guarding or rigidity. She has bilateral lower extremity swelling. The swelling appears to be somewhat better. She has less swelling up her thighs compared to yesterday' s exam. - Lab 08/07/16 05:37 08/10/16 04:55 Most recent lab results Calcium 8.9 mg/dL (8.6-10.8) 08/10/16 04:55 Phosphorus 3.9 mg/dL (2.3-4.7) 08/10/16 04:55 Magnesium 2.0 mg/dL (1.6-2.6) 08/10/16 04:55 Urine Creatinine 19 mg/dL 08/07/16 15:30 Ur Total Protein 24 Hr 2442 mg/day (0-299) H 08/07/16 15:30 Urine Total Protein 111 mg/dL (1-14) H 08/07/16 15:30 Consult Discharge Plan - Plan Referrals: Hetal Mcallister DO [Primary Care Provider] - 08/23/16 4:00 pm
[2016-08-10] MEDS: Insulin DETEMIR 100 UNIT/ML X5UNITS SQ SCH (08:19)
[2016-08-10] MEDS: Insulin LISPRO 300 UNITS/3 ML VIAL SQ SCH ×4 (08:21→20:02)
--- NOTE | 2016-08-10 11:40 | Internal Med Progress Note ---
Date of Encounter: 08/10/16 Time of Encounter: 11:37 - Assessment and plan (1) CKD (chronic kidney disease) Current Visit: Yes Status: Acute Assessment and plan: renal on board, as per renal, proteinuria likely secondary to diabetic nephropathy. Recommended continuing the same dose of Lasix at this time. will follow recommendation Qualifiers: Chronic kidney disease stage: stage 3 (moderate) Qualified Code(s): N18.3 - Chronic kidney disease, stage 3 (moderate) (2) Congestive heart failure Current Visit: No Status: Chronic Assessment and plan: Patient noted to have hypoxia, dyspnea and significant peripheral edema.Repeat echocardiogram shows moderately decreased ejection fraction at 35-40% and significant pleural effusion. etiology may be a combination of both CHF and proteinuria 2/2 diabetic nephropathy clinically better, s/p thoracentesis yesterday with 1.4 l of pleural fluid removal. repeat CXR shows minimal b/l pleural effusion. Continue IV Lasix along with fluid restriction, strict urine output monitoring and daily weights. Noted to have appropriate urine output. Continue beta carlos. Supplemental oxygen and supportive care. Qualifiers: Congestive heart failure type: combined Congestive heart failure chronicity : chronic Qualified Code(s): I50.42 - Chronic combined systolic (congestive) and diastolic (congestive) heart failure (3) Bilateral pleural effusion Current Visit: No Status: Acute Assessment and plan: improved after thoracentesis will continue IV lasix (4) COPD (chronic obstructive pulmonary disease) Current Visit: Yes Status: Chronic Assessment and plan: Continue bronchodilators along with supplemental oxygen. Qualifiers: COPD type: unspecified COPD Qualified Code(s): J44.9 - Chronic obstructive pulmonary disease, unspecified - Time Spent With Patient 25 - 35 minutes - Subjective Interval history: Patient seen at the bedside today, status post thoracentesis yesterday. Remote 1.4 L of pleural fluid, clinically feels better today. Denies any other complaints at this time. Nephrology following - Constitutional Vitals: Temp Pulse Resp BP Pulse Ox 97.8 F 58 16 144/74 96 08/10/16 07:47 08/10/16 07:47 08/10/16 07:47 08/10/16 07:47 08/10/16 07:47 General appearance: Present: A&O X 3 (anasarca), answers questions appropriately Exam: Neck supple. Chest bilateral decreased breath sounds at the bases, no wheezing or crepitations. 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 Abdomen soft, nontender, bowel sounds are present. Extremities bilateral lower leg pitting edema. Neuro no focal neurological deficits Internal Medicine: Result - Labs CBC & Chem 7: 08/07/16 05:37 08/10/16 04:55 Labs: BMP 08/10/16 08/10/16 04:55 04:55 Sodium 137 138 Potassium 4.2 D 4.2 Chloride 95 L 95 L Carbon Dioxide 35 H 36 H BUN 70 H 69 H Creatinine 1.84 H 1.82 H Glucose 159 H 158 H Calcium 8.9 8.9 Liver Function 08/10/16 08/10/16 Range/Units 04:55 04:55 Total Bilirubin 0.6 (0.2-1.2) mg/dL AST 28 (5-34) Units/L ALT 12 (0-55) Units/L Alkaline Phosphatase 89 (38-126) Units/L Albumin 2.7 L 2.7 L (3.5-5.0) g/dL - ABG Interpretation ABG results: PT/INR, D-dimer PT 20.5 Seconds (9.4-12.1) H 08/04/16 16:56 - Impressions Impressions Thoracentesis Ultrasound 08/09/16 12:39 IMPRESSION: Successful ultrasound guided thoracentesis. D/ / Adeel Hallman MD / Adeel Hallman MD Interpreting Provider: Adeel Hallman MD Chest X-Ray 08/10/16 11:04 IMPRESSION: Cardiomegaly with small bilateral pleural effusions and mild interstitial pulmonary edema suggesting mild CHF. D/ / Yony Gutierrez MD / Yony Gutierrez MD Interpreting Provider: Yony Gutierrez MD Consult Discharge Plan - Plan Referrals: Hetal Mcallister DO [Primary Care Provider] - 08/23/16 4:00 pm
[2016-08-10] MEDS: *HR* Rivaroxaban 10 MG TABLET PO SCH (16:52)
--- NOTE | 2016-08-10 17:00 | Electrocardiograph Report ---
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
[2016-08-10] MEDS: *HR* OxyCODONE/APAP 5/325 TABLET PO PRN (20:00)
[2016-08-10] MEDS: ALPRAZolam 0.5 MG TABLET PO PRN (20:00)
[2016-08-11] MEDS: *HR* OxyCODONE/APAP 5/325 TABLET PO PRN ×4 (02:04→21:18)
[2016-08-11 07:55] LABS: Urine Collection Duration RANDOM hr; Urine Collection Volume RANDOM mL
[2016-08-11 08:04] LABS: Myeloperoxidase Ab 0 AU/mL (0-19); Serine Protease-3 Antibody 2 AU/mL (0-19)
[2016-08-11 08:06] LABS: ANA IgG by ELISA NONE DETECTED (None Detected); GBM IgG Multiplex Bead Assay 0 AU/mL (0-19); Glomerular Basement Memb IgG NEGATIVE (Negative)
--- NOTE | 2016-08-11 08:20 | Nephrology Progress Note ---
Date of Encounter: 08/11/16 Time of Encounter: 08:18 - Assessment and Plan (1) Acute kidney failure, unspecified Status: Acute The patient has progressive acute kidney injury in the setting of lower extremity swelling, a diminished ejection fraction, and diuresis. The patient has proteinuria related to diabetic nephropathy. Today's lab is pending. It is difficult to know for renal function is continuing to improve. At this point I will continue with the same diuretic regimen. We do need more accurate I's and O's to better assess the patient's response to diuresis. If the patient is incontinent of urine she may benefit from a Pastor catheter. Qualifiers: Acute renal failure type: unspecified Qualified Code(s): N17.9 - Acute kidney failure, unspecified (2) Isolated proteinuria Current Visit: Yes Status: Acute Qualifiers: Isolated proteinuria type: without specific morphologic lesion Qualified Code(s): R80.0 - Isolated proteinuria (3) Anasarca Current Visit: Yes Status: Acute (4) Bilateral pleural effusion Current Visit: No Status: Acute Subjective Principal diagnosis: arf, anasarca Interval history: The patient is complaining of worsening shortness of breath. There is no urine output recorded from yesterday. There are no lab studies available for today. She continues on Lasix for diuresis. Chest x-ray shows small effusions. Objective - Vital Signs Vital signs: Vital Signs Temp Pulse Resp BP Pulse Ox 08/11/16 06:56 97.6 F 70 16 143/69 94 08/11/16 04:49 97.7 F 75 18 145/74 90 08/11/16 01:46 97.8 F 75 18 146/77 90 08/10/16 20:22 97.3 F L 73 20 152/78 93 08/10/16 15:00 97.3 F L 65 16 137/81 92 08/10/16 11:00 97.4 F L 56 17 130/74 92 Intake and Output 08/10/16 08/11/16 08/11/16 23:59 07:59 15:59 Intake Total 220 / 220 Balance 220 / 220 Intake: Oral 220 / 220 Other: # Voids 2 1 Weight 84.3 kg Blood Glucose* 189 308 Patient Weight 08/11/16 23:59 Weight 84.3 kg - General Appearance Exam: Patient is alert and oriented. She is in no acute distress. Lungs diminished breath sounds. There is some expiratory wheezing. Heart regular rate and rhythm. Abdomen is benign. Lower examination appears to be roughly the same as yesterday possibly mildly improved. - Lab 08/07/16 05:37 08/10/16 04:55 Most recent lab results Calcium 8.9 mg/dL (8.6-10.8) 08/10/16 04:55 Phosphorus 3.9 mg/dL (2.3-4.7) 08/10/16 04:55 Magnesium 2.0 mg/dL (1.6-2.6) 08/10/16 04:55 Urine Creatinine 19 mg/dL 08/07/16 15:30 Ur Total Protein 24 Hr 2442 mg/day (0-299) H 08/07/16 15:30 Urine Total Protein SEE NOTE mg/d (10-140) 08/07/16 15:30 Consult Discharge Plan - Plan Referrals: Hetal Mcallister DO [Primary Care Provider] - 08/23/16 4:00 pm
[2016-08-11] MEDS: Fenofibrate 54 MG TABLET PO SCH (08:26)
[2016-08-11] MEDS: Furosemide 40 MG/4 ML VIAL IVP SCH ×2 (08:26→21:06)
[2016-08-11] MEDS: Gabapentin 400 MG CAPSULE PO SCH ×2 (08:27→21:06)
[2016-08-11] MEDS: Metoprolol XL (24 HR) Succ 50 MG TAB.ER.24H PO SCH (08:27)
[2016-08-11] MEDS: Ranolazine 500 MG TAB.ER.12H PO SCH ×2 (08:27→21:06)
[2016-08-11] MEDS: Magnesium Oxide 400 MG TABLET PO SCH ×2 (08:27→21:06)
[2016-08-11] MEDS: Isosorbide MONOnitrate (24 HR) 30 MG TAB.ER.24H PO SCH (08:27)
[2016-08-11] MEDS: Insulin LISPRO 300 UNITS/3 ML VIAL SQ SCH ×4 (08:29→21:20)
[2016-08-11] MEDS: Insulin DETEMIR 100 UNIT/ML X5UNITS SQ SCH (08:29)
[2016-08-11] MEDS: Nicotine 21 MG PATCH.TD24 TD SCH (08:32)
[2016-08-11] MEDS: Ipratropium/Albuterol Neb 3 ML IH PRN (08:34)
[2016-08-11 08:48] LABS: Calcium 8.8 mg/dL (8.6-10.8); Potassium 4.4 mEq/L (3.5-4.5)
[2016-08-11] MEDS: Ondansetron 4 MG/2 ML VIAL IVP PRN (11:41)
[2016-08-11] MEDS ORDERED: ALPRAZolam 0.5 MG TABLET PO ONE (13:06)
[2016-08-11] MEDS: Ipratropium/Albuterol Neb 3 ML IH SCH ×4 (15:13→23:24)
--- NOTE | 2016-08-11 15:36 | Internal Med Progress Note ---
Date of Encounter: 08/11/16 Time of Encounter: 15:33 - Assessment and plan (1) CKD (chronic kidney disease) Current Visit: Yes Status: Acute Assessment and plan: renal on board, carlos alberto basurto has relatively improved. as per renal, proteinuria likely secondary to diabetic nephropathy. Recommended continuing the same dose of Lasix at this time. no proper documentation or urine output but as per the patinet adn the nurse,she is making a lot of urine. will follow recommendation Qualifiers: Chronic kidney disease stage: stage 3 (moderate) Qualified Code(s): N18.3 - Chronic kidney disease, stage 3 (moderate) (2) Congestive heart failure Current Visit: No Status: Chronic Assessment and plan: Patient noted to have hypoxia, dyspnea and significant peripheral edema.Repeat echocardiogram shows moderately decreased ejection fraction at 35-40% and significant pleural effusion. etiology may be a combination of both CHF and proteinuria 2/2 diabetic nephropathy clinically better after thoracentesis repeat CXR shows minimal b/l pleural effusion, however still wheezing today. Continue IV Lasix along with fluid restriction, strict urine output monitoring and daily weights. Continue beta carlos. Supplemental oxygen and supportive care. Qualifiers: Congestive heart failure type: combined Congestive heart failure chronicity : chronic Qualified Code(s): I50.42 - Chronic combined systolic (congestive) and diastolic (congestive) heart failure (3) Bilateral pleural effusion Current Visit: No Status: Acute Assessment and plan: improved after thoracentesis will continue IV lasix (4) COPD (chronic obstructive pulmonary disease) Current Visit: Yes Status: Chronic Assessment and plan: Continue bronchodilators along with supplemental oxygen. Qualifiers: COPD type: unspecified COPD Qualified Code(s): J44.9 - Chronic obstructive pulmonary disease, unspecified - Time Spent With Patient 25 - 35 minutes - Subjective Interval history: Patient seen at the bedside today, she c/o back pain and generalized weakness. seems to have some wheezing today, leg swelling seems to be around the same. had thoracentesis on tuesday with removal of 1.4 l of pleural fluid. Nephrology following for LANETTE. - Constitutional Vitals: Temp Pulse Resp BP Pulse Ox 97.5 F L 60 16 106/65 98 08/11/16 15:10 08/11/16 15:10 08/11/16 15:31 08/11/16 15:10 08/11/16 15:31 General appearance: Present: A&O X 3 (anasarca), answers questions appropriately Exam: Neck supple. Chest bilateral decreased breath sounds at the bases, wheezing+ MANAGER DEMAND S1-S2, no murmurs rubs or gallops. Abdomen soft, nontender, bowel sounds are present. Extremities bilateral lower leg pitting edema. Neuro no focal neurological deficits Internal Medicine: Result - Labs CBC & Chem 7: 08/07/16 05:37 08/11/16 08:24 Labs: BMP 08/11/16 08:24 Sodium 139 Potassium 4.4 Chloride 94 L Carbon Dioxide 38 H BUN 60 H Creatinine 1.58 H Glucose 275 H Calcium 8.8 - ABG Interpretation ABG results: PT/INR, D-dimer PT 20.5 Seconds (9.4-12.1) H 08/04/16 16:56 Consult Discharge Plan - Plan Referrals: Hetal Mcallister DO [Primary Care Provider] - 08/23/16 4:00 pm
[2016-08-11] MEDS: *HR* Rivaroxaban 10 MG TABLET PO SCH (16:14)
[2016-08-11 16:26] LABS: Basophils # 0.1 K/mcL (0.0-0.2); Basophils % 0.7 %; Eosinophils # 0.2 K/mcL (0.0-0.6); Eosinophils % 2.8 %; Hemoglobin 9.4 g/dL (11.5-15.4); Immature Granulocytes % 0.3 % (0-4); Lymphocytes # 1.1 K/mcL (0.6-4.6); Lymphocytes % 15.9 %; Mean Corpuscular HGB Conc 31.3 g/dL (31.6-35.5); Mean Corpuscular Hemoglobin 26.6 pg (28.0-33.3); Mean Platelet Volume 8.7 fL (9.4-12.4); Monocytes # 0.8 K/mcL (0.0-1.3); Monocytes % 11.4 %; Neutrophils # 4.6 K/mcL (1.6-8.9); Platelet Count 314 K/mcL (140-400); Red Blood Count 3.53 M/mcL (3.82-4.97); Red Cell Distribution Width 16.3 % (11.5-14.5); Segmented Neutrophils % 68.9 %
[2016-08-11] MEDS: ALPRAZolam 0.5 MG TABLET PO PRN (21:19)
[2016-08-12 00:17] LABS: Alpha 2 Globulin (PEP) 0.65 g/dL (0.48-1.05); Beta Globulin (PEP) 0.79 g/dL (0.48-1.10)
[2016-08-12] MEDS: Ipratropium/Albuterol Neb 3 ML IH SCH ×6 (05:41→23:58)
[2016-08-12 06:01] LABS: Albumin 2.4 g/dL (3.5-5.0); Albumin/Globulin Ratio 0.7 (1.1-2.2); Bilirubin,Total 0.5 mg/dL (0.2-1.2); Calcium 8.8 mg/dL (8.6-10.8); Globulin 3.3 g/dL (2.4-3.5); Potassium 4.1 mEq/L (3.5-4.5); Total Protein 5.7 g/dL (6.0-8.3)
[2016-08-12 07:15] LABS: IFE Reflexed IFE Done; Immunoglobulin A 434 mg/dL (68-408); Immunoglobulin G 543 mg/dL (768-1632); Immunoglobulin M 25 mg/dL (35-263)
[2016-08-12] MEDS: Furosemide 40 MG/4 ML VIAL IVP SCH ×2 (08:29→20:06)
[2016-08-12] MEDS: Ranolazine 500 MG TAB.ER.12H PO SCH ×2 (08:40→20:06)
[2016-08-12] MEDS: Fenofibrate 54 MG TABLET PO SCH (08:40)
[2016-08-12] MEDS: Metoprolol XL (24 HR) Succ 50 MG TAB.ER.24H PO SCH (08:40)
[2016-08-12] MEDS: Insulin LISPRO 300 UNITS/3 ML VIAL SQ SCH ×4 (08:41→20:12)
[2016-08-12] MEDS: Gabapentin 400 MG CAPSULE PO SCH ×2 (08:41→20:06)
[2016-08-12] MEDS: Magnesium Oxide 400 MG TABLET PO SCH ×2 (08:41→20:06)
[2016-08-12] MEDS: Isosorbide MONOnitrate (24 HR) 30 MG TAB.ER.24H PO SCH (08:41)
[2016-08-12] MEDS: Nicotine 21 MG PATCH.TD24 TD SCH (08:42)
[2016-08-12] MEDS: Insulin DETEMIR 100 UNIT/ML X5UNITS SQ SCH (08:57)
--- NOTE | 2016-08-12 10:52 | Nephrology Progress Note ---
Date of Encounter: 08/12/16 Time of Encounter: 10:40 - Assessment and Plan (1) Acute kidney failure, unspecified Current Visit: Yes Status: Acute LANETTE in setting CHF, decreasred EF, diuresis. Proteinuria related to diabetic nephropathy. Creat 1.60, plateaued. Urine output 1200 cc. Qualifiers: Acute renal failure type: unspecified Qualified Code(s): N17.9 - Acute kidney failure, unspecified Subjective Principal diagnosis: arf, anasarca Interval history: Sitting up, complains of constipation. Denies difficulty in breathing. Objective - Vital Signs Vital signs: Vital Signs Temp Pulse Resp BP Pulse Ox 08/12/16 07:38 97.8 F 71 18 135/75 93 08/12/16 04:58 97.5 F L 76 19 134/69 90 08/11/16 23:25 14 99 08/11/16 20:04 14 08/11/16 18:59 97.6 F 62 17 141/73 99 08/11/16 15:31 16 98 08/11/16 15:10 97.5 F L 60 14 106/65 94 Intake and Output 08/11/16 08/12/16 08/12/16 23:59 07:59 15:59 Output Total 350 / 350 Balance -350 / -350 Output: Urine 350 / 350 Other: Weight 84.34 kg Blood Glucose* 143 175 Patient Weight 08/12/16 23:59 Weight 84.34 kg - General Appearance General appearance: Present: well-developed, well-nourished, appears started age EENT: Present: mucous membranes moist Neck: Present: no JVD Respiratory: Present: clear Cardiology: Present: regular rate, regular rhythm Additional Comments: 1+ LE edema Gastrointestinal: Present: normoactive bowel sounds, no tenderness Integumentary: Present: warm and dry Neurologic: Present: alert and oriented x3 Psychiatric: Present: mood/affect appropriate, cooperative - Lab 08/11/16 16:17 08/12/16 04:45 Most recent lab results Calcium 8.8 mg/dL (8.6-10.8) 08/12/16 04:45 Phosphorus 3.9 mg/dL (2.3-4.7) 08/10/16 04:55 Magnesium 2.0 mg/dL (1.6-2.6) 08/10/16 04:55 Urine Creatinine 19 mg/dL 08/07/16 15:30 Ur Total Protein 24 Hr 2442 mg/day (0-299) H 08/07/16 15:30 Urine Total Protein SEE NOTE mg/d (10-140) 08/07/16 15:30 Consult Discharge Plan - Plan Referrals: Hetal Mcallister DO [Primary Care Provider] - 08/23/16 4:00 pm
--- NOTE | 2016-08-12 11:50 | Internal Med Progress Note ---
Date of Encounter: 08/12/16 Time of Encounter: 11:39 - Assessment and plan (1) CKD (chronic kidney disease) Current Visit: Yes Status: Acute Assessment and plan: renal on board, renal fxn has relatively improved and plateaued. as per renal, proteinuria likely secondary to diabetic nephropathy. Recommended continuing the same dose of Lasix at this time. patient refuses folwy catheter, output 1200cc recorded. CXR does not show worsening of pleural effusion,clinically looks better today, may need to continue IV diuresis for another day, still has b/l lower leg swelling, will plan changing lasix to oral tomm in view of dc planning. will follow recommendation Qualifiers: Chronic kidney disease stage: stage 3 (moderate) Qualified Code(s): N18.3 - Chronic kidney disease, stage 3 (moderate) (2) Congestive heart failure Current Visit: No Status: Chronic Assessment and plan: .Repeat echocardiogram shows moderately decreased ejection fraction at 35-40% and significant pleural effusion. etiology may be a combination of both CHF and proteinuria 2/2 diabetic nephropathy clinically better after thoracentesis repeat CXR shows minimal b/l pleural effusion, patinet continues to have o2 requirement and may need to go home with o2 this time. Continue IV Lasix along with fluid restriction, strict urine output monitoring and daily weights. Continue beta carlos. Supplemental oxygen and supportive care. Qualifiers: Congestive heart failure type: combined Congestive heart failure chronicity : chronic Qualified Code(s): I50.42 - Chronic combined systolic (congestive) and diastolic (congestive) heart failure (3) Bilateral pleural effusion Current Visit: No Status: Acute Assessment and plan: improved after thoracentesis, repeat CXR does not show any worsening pleural effsuion. will continue IV lasix (4) COPD (chronic obstructive pulmonary disease) Current Visit: Yes Status: Chronic Assessment and plan: Continue bronchodilators along with supplemental oxygen. Qualifiers: COPD type: unspecified COPD Qualified Code(s): J44.9 - Chronic obstructive pulmonary disease, unspecified - Time Spent With Patient 25 - 35 minutes - Subjective Interval history: Patient seen at the bedside today, looks more awake today,sitting on chair and having breakfast. leg swelling seems to have improved some Nephrology following for LANETTE. - Constitutional Vitals: Temp Pulse Resp BP Pulse Ox 97.8 F 71 18 135/75 93 08/12/16 07:38 08/12/16 07:38 08/12/16 07:38 08/12/16 07:38 08/12/16 07:38 General appearance: Present: A&O X 3 (anasarca), answers questions appropriately Exam: Neck supple. 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 Abdomen soft, nontender, bowel sounds are present. Extremities bilateral lower leg pitting edema. Neuro no focal neurological deficits Internal Medicine: Result - Labs CBC & Chem 7: 08/11/16 16:17 08/12/16 04:45 Labs: Short CBC 08/11/16 Range/Units 16:17 WBC 6.7 (4.3-11.1) K/mcL Hgb 9.4 L (11.5-15.4) g/dL Hct 30.0 L (35.3-44.9) % Plt Count 314 (140-400) K/mcL Neutrophils # 4.6 (1.6-8.9) K/mcL BMP 08/12/16 04:45 Sodium 141 Potassium 4.1 Chloride 94 L Carbon Dioxide 35 H BUN 57 H Creatinine 1.60 H Glucose 191 H Calcium 8.8 Liver Function 08/12/16 Range/Units 04:45 Total Bilirubin 0.5 (0.2-1.2) mg/dL AST 18 (5-34) Units/L ALT 13 (0-55) Units/L Alkaline Phosphatase 84 (38-126) Units/L Albumin 2.4 L (3.5-5.0) g/dL - ABG Interpretation ABG results: PT/INR, D-dimer PT 20.5 Seconds (9.4-12.1) H 08/04/16 16:56 - Impressions Impressions Chest X-Ray 08/12/16 10:01 IMPRESSION: 1. Bilateral pleural effusions with associated bibasilar atelectasis, not appreciably changed. 2. Improved pulmonary edema. D/ / Gino Harris MD / Gino Harris MD Interpreting Provider: Gino Harris MD Consult Discharge Plan - Plan Referrals: Heatl Mcallister DO [Primary Care Provider] - 08/23/16 4:00 pm
[2016-08-12] MEDS: *HR* Rivaroxaban 10 MG TABLET PO SCH (16:34)
[2016-08-12] MEDS: ALPRAZolam 0.5 MG TABLET PO PRN (20:09)
[2016-08-12] MEDS: *HR* OxyCODONE/APAP 5/325 TABLET PO PRN (20:11)
[2016-08-13] MEDS: Ipratropium/Albuterol Neb 3 ML IH SCH ×7 (04:35→23:21)
[2016-08-13] MEDS: *HR* OxyCODONE/APAP 5/325 TABLET PO PRN ×2 (05:46→21:27)
[2016-08-13] MEDS: Insulin LISPRO 300 UNITS/3 ML VIAL SQ SCH ×4 (08:14→20:57)
[2016-08-13] MEDS: Fenofibrate 54 MG TABLET PO SCH (08:15)
[2016-08-13] MEDS: Insulin DETEMIR 100 UNIT/ML X5UNITS SQ SCH (08:15)
[2016-08-13] MEDS: Nicotine 21 MG PATCH.TD24 TD SCH (08:15)
[2016-08-13] MEDS: Furosemide 40 MG/4 ML VIAL IVP SCH ×2 (08:15→21:00)
[2016-08-13] MEDS: Ranolazine 500 MG TAB.ER.12H PO SCH ×2 (08:15→21:00)
[2016-08-13] MEDS: Isosorbide MONOnitrate (24 HR) 30 MG TAB.ER.24H PO SCH (08:15)
[2016-08-13] MEDS: Gabapentin 400 MG CAPSULE PO SCH ×2 (08:16→21:00)
[2016-08-13] MEDS: Magnesium Oxide 400 MG TABLET PO SCH ×2 (08:16→21:00)
[2016-08-13] MEDS: Metoprolol XL (24 HR) Succ 50 MG TAB.ER.24H PO SCH (08:16)
--- NOTE | 2016-08-13 08:21 | Nephrology Progress Note ---
Date of Encounter: 08/13/16 Time of Encounter: 08:15 - Assessment and Plan (1) Acute kidney failure, unspecified Current Visit: Yes Status: Acute LANETTE in setting CHF, decreasred EF, diuresis. Proteinuria related to diabetic nephropathy. Today labs pending. Urine output 3750cc. Qualifiers: Acute renal failure type: unspecified Qualified Code(s): N17.9 - Acute kidney failure, unspecified Subjective Principal diagnosis: arf, anasarca Interval history: Sitting up in bed, eating breakfast. Denies difficulty in breathing. Objective - Vital Signs Vital signs: Vital Signs Temp Pulse Resp BP Pulse Ox 08/13/16 08:05 16 90 08/13/16 06:52 97.5 F L 71 16 139/75 96 08/13/16 05:05 97.9 F 71 18 143/75 90 08/13/16 04:58 18 92 08/12/16 23:58 16 99 08/12/16 23:38 98.1 F 77 18 136/74 94 08/12/16 20:20 20 95 08/12/16 19:43 98.4 F 79 19 154/73 95 08/12/16 18:49 94 08/12/16 18:44 94 08/12/16 17:03 97.8 F 76 18 126/75 94 08/12/16 16:01 18 99 08/12/16 12:15 97.7 F 68 16 138/75 100 08/12/16 11:30 18 100 Intake and Output 08/12/16 08/13/16 08/13/16 23:59 07:59 15:59 Intake Total 800 / 800 500 / 500 Output Total 1600 / 1600 1999 / 1999 Balance -800 / -800 -1500 / -1500 Intake: Oral 800 / 800 500 / 500 Output: Urine 1600 / 1600 1999 Other: Stool Size Small Moderate Stool Consistency formed loose Stool Characteristics Normal for Patient Stool Color Brown Brown Weight 84.42 kg Blood Glucose* 167 234 Patient Weight 08/13/16 23:59 Weight 84.42 kg - General Appearance General appearance: Present: well-developed, well-nourished, appears started age EENT: Present: mucous membranes moist Neck: Present: no JVD Respiratory: Present: clear Cardiology: Present: edema, regular rate, regular rhythm Additional Comments: mild-1+ knees down Gastrointestinal: Present: normoactive bowel sounds, no tenderness Integumentary: Present: warm and dry Neurologic: Present: alert and oriented x3 Psychiatric: Present: mood/affect appropriate, cooperative - Lab 08/11/16 16:17 08/12/16 04:45 Most recent lab results Calcium 8.8 mg/dL (8.6-10.8) 08/12/16 04:45 Phosphorus 3.9 mg/dL (2.3-4.7) 08/10/16 04:55 Magnesium 2.0 mg/dL (1.6-2.6) 08/10/16 04:55 Urine Creatinine 19 mg/dL 08/07/16 15:30 Ur Total Protein 24 Hr 2442 mg/day (0-299) H 08/07/16 15:30 Urine Total Protein SEE NOTE mg/d (10-140) 08/07/16 15:30 Consult Discharge Plan - Plan Referrals: Hetal Mcallister DO [Primary Care Provider] - 08/23/16 4:00 pm
[2016-08-13 09:03] LABS: Calcium 8.7 mg/dL (8.6-10.8); Potassium 4.1 mEq/L (3.5-4.5)
[2016-08-13] MEDS: *HR* Rivaroxaban 10 MG TABLET PO SCH (16:05)
--- NOTE | 2016-08-13 16:35 | Internal Med Progress Note ---
Date of Encounter: 08/13/16 Time of Encounter: 16:21 - Assessment and plan (1) CKD (chronic kidney disease) Current Visit: Yes Status: Acute Assessment and plan: renal on board, renal fxn has relatively improved and plateaued. as per renal, proteinuria likely secondary to diabetic nephropathy. Recommended continuing the same dose of Lasix at this time. patient refuses folwy catheter, output 3.2 l recorded. CXR does not show worsening of pleural effusion,clinically looks better today, still has b/l lower leg swelling, will change lasix to oral as she is also having diarrhea. possible dc tomm. Qualifiers: Chronic kidney disease stage: stage 3 (moderate) Qualified Code(s): N18.3 - Chronic kidney disease, stage 3 (moderate) (2) Congestive heart failure Current Visit: No Status: Chronic Assessment and plan: .Repeat echocardiogram shows moderately decreased ejection fraction at 35-40% and significant pleural effusion. etiology may be a combination of both CHF and proteinuria 2/2 diabetic nephropathy clinically better after thoracentesis repeat CXR shows minimal b/l pleural effusion, pura continues to have o2 requirement and may need to go home with o2 this time. lasix change to oral, strict urine output monitoring and daily weights. Continue beta carlos. Supplemental oxygen and supportive care. Qualifiers: Congestive heart failure type: combined Congestive heart failure chronicity : chronic Qualified Code(s): I50.42 - Chronic combined systolic (congestive) and diastolic (congestive) heart failure (3) Bilateral pleural effusion Current Visit: No Status: Acute Assessment and plan: improved after thoracentesis, repeat CXR does not show any worsening pleural effsuion. will continue lasix (4) COPD (chronic obstructive pulmonary disease) Current Visit: Yes Status: Chronic Assessment and plan: Continue bronchodilators along with supplemental oxygen. Qualifiers: COPD type: unspecified COPD Qualified Code(s): J44.9 - Chronic obstructive pulmonary disease, unspecified - Subjective Interval history: Patient seen at the bedside today, looks better today,denies having sob but says having diarrhea since last night. leg swelling seems to have improved some, no fever or cough. Nephrology following for LANETTE. - Constitutional Vitals: Temp Pulse Resp BP Pulse Ox 97.5 F L 66 16 153/80 95 08/13/16 15:09 08/13/16 15:09 08/13/16 15:09 08/13/16 15:09 08/13/16 15:09 General appearance: Present: A&O X 3 (anasarca), answers questions appropriately Exam: Neck supple. Chest bilateral decreased breath sounds at the bases, no wheezing . 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 Abdomen soft, nontender, bowel sounds are present. Extremities bilateral lower leg pitting edema. Neuro no focal neurological deficits Internal Medicine: Result - Labs CBC & Chem 7: 08/11/16 16:17 08/13/16 08:25 Labs: BMP 08/13/16 08:25 Sodium 140 Potassium 4.1 Chloride 95 L Carbon Dioxide 36 H BUN 58 H Creatinine 1.58 H Glucose 215 H Calcium 8.7 - ABG Interpretation ABG results: PT/INR, D-dimer PT 20.5 Seconds (9.4-12.1) H 08/04/16 16:56 Consult Discharge Plan - Plan Referrals: Hetal Mcallister DO [Primary Care Provider] - 08/23/16 4:00 pm
[2016-08-13] MEDS: ALPRAZolam 0.5 MG TABLET PO PRN (21:27)
[2016-08-14] MEDS: Ipratropium/Albuterol Neb 3 ML IH SCH ×3 (03:58→11:07)
[2016-08-14] MEDS: Fenofibrate 54 MG TABLET PO SCH (07:48)
[2016-08-14] MEDS: Isosorbide MONOnitrate (24 HR) 30 MG TAB.ER.24H PO SCH (07:48)
[2016-08-14] MEDS: Ranolazine 500 MG TAB.ER.12H PO SCH (07:48)
[2016-08-14] MEDS: Magnesium Oxide 400 MG TABLET PO SCH (07:49)
[2016-08-14] MEDS: Gabapentin 400 MG CAPSULE PO SCH (07:49)
[2016-08-14] MEDS: Nicotine 21 MG PATCH.TD24 TD SCH (07:49)
[2016-08-14] MEDS: Metoprolol XL (24 HR) Succ 50 MG TAB.ER.24H PO SCH (07:49)
[2016-08-14] MEDS: Furosemide 40 MG/4 ML VIAL IVP SCH (07:49)
[2016-08-14] MEDS: Insulin LISPRO 300 UNITS/3 ML VIAL SQ SCH ×2 (07:50→14:27)
[2016-08-14] MEDS: *HR* OxyCODONE/APAP 5/325 TABLET PO PRN (08:03)
--- NOTE | 2016-08-14 08:49 | Nephrology Progress Note ---
Date of Encounter: 08/14/16 Time of Encounter: 08:40 - Assessment and Plan (1) Acute kidney failure, unspecified Current Visit: Yes Status: Acute LANETTE in setting CHF, decreasred EF, diuresis. Proteinuria related to diabetic nephropathy. Today labs pending. Urine output 3100cc. If discharged, will follow up in office in two weeks with labs. Qualifiers: Acute renal failure type: unspecified Qualified Code(s): N17.9 - Acute kidney failure, unspecified Subjective Principal diagnosis: arf, anasarca Interval history: Sitting up in bed, eating breakfast. Denies difficulty in breathing. States LE less swollen. Objective - Vital Signs Vital signs: Vital Signs Temp Pulse Resp BP Pulse Ox 08/14/16 07:41 18 94 08/14/16 06:57 96.4 F L 69 18 155/74 90 08/14/16 03:28 97.7 F 75 16 133/70 93 08/14/16 00:08 97.8 F 83 18 130/63 92 08/13/16 20:34 16 98 08/13/16 20:10 97.7 F 74 20 156/75 97 08/13/16 16:26 16 98 08/13/16 15:09 97.5 F L 66 16 153/80 95 08/13/16 11:34 16 98 08/13/16 11:21 97.3 F L 62 14 117/55 99 Intake and Output 08/13/16 08/14/16 08/14/16 23:59 07:59 15:59 Intake Total 0 / 0 0 / 0 Output Total 800 / 800 1000 / 1000 Balance -800 / -800 -1000 / -1000 Intake: Oral 0 / 0 0 / 0 Output: Urine 800 / 800 1000 / 1000 Other: Stool Size Moderate Stool Consistency loose Stool Color Brown # Voids 1 # Bowel Movements 1 Weight 84.8 kg Blood Glucose* 181 170 Patient Weight 08/14/16 23:59 Weight 84.8 kg - General Appearance General appearance: Present: well-developed, well-nourished, appears started age EENT: Present: mucous membranes moist Neck: Present: no JVD Additional Comments: diminished, scattered rhonchi Cardiology: Present: regular rate, regular rhythm Additional Comments: mild pitting edema Gastrointestinal: Present: normoactive bowel sounds, no tenderness Integumentary: Present: warm and dry Neurologic: Present: alert and oriented x3 Psychiatric: Present: mood/affect appropriate, cooperative - Lab 08/11/16 16:17 08/13/16 08:25 Most recent lab results Calcium 8.7 mg/dL (8.6-10.8) 08/13/16 08:25 Phosphorus 3.9 mg/dL (2.3-4.7) 08/10/16 04:55 Magnesium 2.0 mg/dL (1.6-2.6) 08/10/16 04:55 Urine Creatinine 19 mg/dL 08/07/16 15:30 Ur Total Protein 24 Hr 2442 mg/day (0-299) H 08/07/16 15:30 Urine Total Protein SEE NOTE mg/d (10-140) 08/07/16 15:30 Consult Discharge Plan - Plan Referrals: Hetal Mcallister DO [Primary Care Provider] - 08/23/16 4:00 pm
[2016-08-14] MEDS ORDERED: Insulin DETEMIR 100 UNIT/ML X5UNITS SQ SCH (09:00)
--- NOTE | 2016-08-14 10:13 | Discharge Summary ---
Date of Encounter: 08/14/16 Time of Encounter: 10:07 - Discharge Diagnosis (1) CKD (chronic kidney disease) Priority: Primary Status: Acute Qualifiers: Chronic kidney disease stage: stage 3 (moderate) Qualified Code(s): N18.3 - Chronic kidney disease, stage 3 (moderate) (2) Congestive heart failure Priority: Primary Status: Chronic Qualifiers: Congestive heart failure type: combined Congestive heart failure chronicity : chronic Qualified Code(s): I50.42 - Chronic combined systolic (congestive) and diastolic (congestive) heart failure (3) Bilateral pleural effusion Priority: Primary Status: Acute (4) COPD (chronic obstructive pulmonary disease) Priority: Secondary Status: Chronic Qualifiers: COPD type: unspecified COPD Qualified Code(s): J44.9 - Chronic obstructive pulmonary disease, unspecified - Discharge Medications Prescriptions: Loperamide [Imodium] 2 mg PO Q6HR #10 capsule ALPRAZolam [Xanax 0.5 MG Tablet] 0.5 mg PO HS PRN #30 tablet PRN Reason: Sleep Furosemide [Lasix] 80 mg PO BID 30 Days Nebulizer [Aeroeclipse] 1 each MC DAILY #1 each Home Medications: Albuterol Sulfate [Proair Hfa] 2 puff IH Q4H PRN 06/18/16 [History] Atorvastatin [Lipitor] 40 mg PO HS 06/18/16 [History] Clopidogrel [Plavix] 75 mg PO DAILY 06/18/16 [History] Docusate [Colace] 100 mg PO BID 06/18/16 [History] Fenofibrate [Lofibra] 160 mg PO DAILY 06/18/16 [History] Gabapentin [Neurontin] 400 mg PO TID 06/18/16 [History] Isosorbide MONOnitrate (24 HR) [Imdur] 60 mg PO DAILY 06/18/16 [History] Lisinopril 2.5 mg PO DAILY 06/18/16 [History] Metoprolol XL (24 HR) Succ [Toprol Xl] 50 mg PO DAILY 06/18/16 [History] Potassium Chloride [Klor-Con Sprinkle] 10 meq PO DAILY 06/18/16 [History] Ranolazine [Ranexa] 500 mg PO BID 06/18/16 [History] Insulin DETEMIR [Levemir Flextouch] 5 unit SQ HS #1 insuln.pen 07/07/16 [Rx] ALPRAZolam [Xanax 0.5 MG Tablet] 0.5 mg PO HS PRN #30 tablet 08/14/16 [Rx] Furosemide [Lasix] 80 mg PO BID 30 Days 08/14/16 [Rx] Loperamide [Imodium] 2 mg PO Q6HR #10 capsule 08/14/16 [Rx] Nebulizer [Aeroeclipse] 1 each MC DAILY #1 each 08/14/16 [Rx] Allergies/Adverse Reactions: Allergies Onion Allergy (Intermediate, Verified 08/05/16 09:37) Swelling of Lip/Tongue/Throat ciprofloxacin [From Cipro] Allergy (Verified 08/04/16 19:26) Hives codeine Allergy (Verified 08/04/16 19:26) Hives insulin glargine [From Lantus] Allergy (Verified 08/04/16 19:26) Hives aspirin Adverse Reaction (Verified 08/04/16 22:12) Nausea Date of admission: 08/08/16 16:45 Primary care physician: Hetal Mcallister DO Consults: 08/09/16 10:52 Consult to PICC team [Consult to Invasive Line Access Team] [CONS] Routine Reason for Consult: no access Line Type: EPIV 08/11/16 15:59 Consult to Physical Therapy [CONS] Routine Comment: Evaluate, develop and implement POC Reason for Consult: eval and tx 08/13/16 14:22 Consult to Food Beverage Server [CONS] Routine Reason for SW Consult: home health Discharging clinician: Joshua Valodvinos Anticipated date of discharge: 08/14/16 - Patient Status Disposition: Home, Self-Care Condition: Serious Functional capacity at discharge: independent ambulation Overall status at discharge: patient is back to baseline - Discharge Instructions Instructions: Furosemide (By mouth), Loperamide (By mouth), Heart Failure (DC) Follow Up With: Hetal Mcallister DO [Primary Care Provider] - 08/23/16 4:00 pm Shashank Iniguez DO [Non-Partnered Physician] - - Diet and Activity Activity: resume usual activities as tolerated Diet: other (cardiac diet, fluid restriction 1.5l/day) Interval History: Ms. Mckeon is a 46 year old female with h/o CHF, cirrhosis, COPD, CAD, CVA, DM type II, PVD presented with worsening shortness of breath of one-week duration, orthopnea, dry cough and increasing abdominal girth. Patient noticed swelling in the ankles about 2 months ago, has been progressively worse extending to the thighs and belly. Lasix 40 mg a day was started by PCP a month ago. She is compliant with salt and fluid restriction. Vital signs stable. labs significant for Bun 38, creatinine 1.1, hemoglobin 10.4. Diagnosed with CHF. Lasix 40 mg IV twice a day was started. Chest x-ray ; cardiomegaly, small bilateral pleural effusions, bibasilar airspace densities c/w mild pulmonary edema. perihilar vasculature. CT abdomen; mild nodularity of left adrenal gland, punctate bilateral nonobstructing calculi. Third spacing of fluid. Liver and spleen were unremarkable 2-D echo 06/2016; LVEF 40% mild diastolic dysfunction moderate MR, RVSP 27. Diagnosed with left upper extremity DVT in 06/2016 nephrology was consulted for proteinuria with progressive acute kidney injury in the setting of lower extremity swelling, a diminished ejection fraction, and diuresis. as per renal, The patient has proteinuria related to diabetic nephropathy. given both LANETTE and CHF, she was tretaed with IV lasix 80 mg bid. she alos underwent tapping of the pleural fluid for moderate respiratory distress 2/2 volume overlad. she improved clincally with thoracentesis, IV lasix, fluid restriction and oxygen therapy. patient's renal fxn has improved and has plateaued for now. dominic c today with lasix oral 80 bid, will follow with renal as OP. Hospital course: Ms. Mckeon is a 46 year old female Time spent discussing smoking cessation with patient: more than 10 minutes - Time Spent with Patient Total time spent providing and/or coordinating discharge services: Greater than 30 minutes - Constitutional Vitals: Temp Pulse Resp BP Pulse Ox 96.4 F L 69 18 155/74 94 08/14/16 06:57 08/14/16 06:57 08/14/16 07:41 08/14/16 06:57 08/14/16 07:41 General appearance: Present: A&O X 3 (anasarca), answers questions appropriately Exam: Neck supple. Chest bilateral decreased breath sounds at the bases, no wheezing or crepitations. 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 Abdomen soft, nontender, bowel sounds are present. Extremities bilateral lower leg pitting edema. Neuro no focal neurological deficits
[2016-08-14 10:22] LABS: Calcium 8.9 mg/dL (8.6-10.8); Potassium 3.7 mEq/L (3.5-4.5)
--- NOTE | 2016-08-14 10:54 | Physician Discharge Referral ---
Home Health/Hosp Referral Info Transfer to: Home Health Attending Provider: denise mancilla - Diagnosis (1) CKD (chronic kidney disease) Status: Acute (2) Congestive heart failure Status: Chronic (3) Bilateral pleural effusion Status: Acute (4) COPD (chronic obstructive pulmonary disease) Status: Chronic - Respiratory Orders Oxygen / L per min (2l) Smoking Cessation: Smoking cessation has been advised. For more information, call the [facility] Tobacco Quit Line at 6-534-ATDW-NOW. - Diet/Nutrition Diet/Nutrition Orders: Regular, No Added Salt ([facility]), Renal, Cardiac - Activity Activity Orders: Ambulate, Walker - Services Needed Following services are medically necessary services: Nursing, Home Health Aide, Physical Therapy, Occupational Therapy - Transfer Medications Prescriptions: Loperamide [Imodium] 2 mg PO Q6HR #10 capsule Furosemide [Lasix] 80 mg PO BID 30 Days Home Medications: ALPRAZolam [Xanax 0.5 MG Tablet] 0.5 mg PO HS PRN 06/18/16 [History] Albuterol Sulfate [Proair Hfa] 2 puff IH Q4H PRN 06/18/16 [History] Atorvastatin [Lipitor] 40 mg PO HS 06/18/16 [History] Clopidogrel [Plavix] 75 mg PO DAILY 06/18/16 [History] Docusate [Colace] 100 mg PO BID 06/18/16 [History] Fenofibrate [Lofibra] 160 mg PO DAILY 06/18/16 [History] Gabapentin [Neurontin] 400 mg PO TID 06/18/16 [History] Isosorbide MONOnitrate (24 HR) [Imdur] 60 mg PO DAILY 06/18/16 [History] Lisinopril 2.5 mg PO DAILY 06/18/16 [History] Metoprolol XL (24 HR) Succ [Toprol Xl] 50 mg PO DAILY 06/18/16 [History] Potassium Chloride [Klor-Con Sprinkle] 10 meq PO DAILY 06/18/16 [History] Ranolazine [Ranexa] 500 mg PO BID 06/18/16 [History] Insulin DETEMIR [Levemir Flextouch] 5 unit SQ HS #1 insuln.pen 07/07/16 [Rx] Furosemide [Lasix] 80 mg PO BID 30 Days 08/14/16 [Rx] Loperamide [Imodium] 2 mg PO Q6HR #10 capsule 08/14/16 [Rx] Allergies/Adverse Reactions: Allergies Onion Allergy (Intermediate, Verified 08/05/16 09:37) Swelling of Lip/Tongue/Throat ciprofloxacin [From Cipro] Allergy (Verified 08/04/16 19:26) Hives codeine Allergy (Verified 08/04/16 19:26) Hives insulin glargine [From Lantus] Allergy (Verified 08/04/16 19:26) Hives aspirin Adverse Reaction (Verified 08/04/16 22:12) Nausea Certification: Further, I certify that my clinical findings support that this patient is homebound (i.e. absences from home require considerable and taxing effort and are for medical reasons or latter day services or infrequently or short duration when for other reasons) because: Homebound Reason: Patient requires assistance of a person or device to safely leave home Attestation: My signature below is to certify that this patient is under my care and that I, or nurse practitioner, or a physician's certified surgical tech/first assistant working with me, has a face-to -face encounter with this patient.
[2016-08-14 11:00] VITALS: BP 145/74
== END 2016-08-14 14:35 | disposition home health service (06) | DRG 194 ==
LOC: 3BNU 16:10 → EMEROO 16:10 → 3BNU 20:27 → SUATTDRO 21:59 → 2ANU 08-09 14:00
PROVIDERS: ADMIT Nurse Practitioner Family; ATTEND Internal Medicine

== ENCOUNTER 2016-08-20 14:24 | Inpatient (IN) ==
--- NOTE | 2016-08-20 15:27 | Emergency Department Note ---
START Narrative - START START: I examined this patient and my medical decision-making was reviewed with the TRACTOR MECHANIC/PA/Advanced Practice Nurse/Resident Physician. I agree with the documented findings, disposition and treatment plan as described except to the extent set forth below. ED attending: Patient's emergency medicine resident Dr. Colby. Please see copy of this note for H&P evaluation and management and ED disposition. We both had independent [id number] time in contact with this patient. Briefly: A 46-year-old female by EMS for increasing shortness of breath history of COPD. 5 basilar rhonchi usp up with scattered wheezes. Patient getting DuoNeb supplement oxygen. Labs and x-rays are pending. 45 minutes critical care service provided. Admission anticipated. Disposition pending
[2016-08-20] MEDS ORDERED: Nitroglycerin 0.4 MG TAB.SUBL SL PRN (15:33)
--- NOTE | 2016-08-20 15:37 | Emergency Department Note ---
Disposition Clinical Impression: Acute exacerbation of CHF (congestive heart failure) Qualifiers: Congestive heart failure type: unspecified congestive heart failure type Qualified Code(s): I50.9 - Heart failure, unspecified Disposition: Admitted As Inpatient Referrals: NO,PCP [Primary Care Provider] - Forms: ED Satisfaction Letter SOB HPI - General Chief Complaint: ED Shortness of Breath/Dyspnea Stated Complaint: MEKA Time Seen by Provider: 08/20/16 14:32 Source: patient, EMS Limitations: no limitations Nursing Notes Reviewed: Yes Vital Signs Reviewed: Yes - History of Present Illness Mrs. Mckeon, a 38-year-old female, presents from home via EMS which was called by her home health nurse. Chief complaints of dyspnea. Onset last night which kept her awake. Associated with nausea, vomiting (nonbloody, nonbilious). Patient notes she was discharged from this facility recently with the exact same symptoms on that admission. Patient has history of COPD with baseline supplemental oxygen 3 L nasal cannula continuous. PMH: CHF, diabetic proteinuria, COPD, history pleural effusion ROS: Admits nausea, vomiting, dyspnea. Denies fever, chills, chest pain, abdominal pain, changes in bowel or bladder, increased swelling. - Related Data Home Medications Medication Instructions Recorded Confirmed Albuterol Sulfate [Proair Hfa] 2 puff IH Q4H PRN 06/18/16 08/20/16 Atorvastatin [Lipitor] 40 mg PO HS 06/18/16 08/20/16 Clopidogrel [Plavix] 75 mg PO DAILY 06/18/16 08/20/16 Fenofibrate [Lofibra] 160 mg PO DAILY 06/18/16 08/20/16 Gabapentin [Neurontin] 400 mg PO TID 06/18/16 08/20/16 Isosorbide MONOnitrate (24 HR) 60 mg PO DAILY 06/18/16 08/20/16 [Imdur] Lisinopril 2.5 mg PO DAILY 06/18/16 08/20/16 Metoprolol XL (24 HR) Succ [Toprol 50 mg PO DAILY 06/18/16 08/20/16 Xl] Potassium Chloride [Klor-Con 10 meq PO BID 06/18/16 08/20/16 Sprinkle] Budesonide/Formoterol 160/4.5 2 puff IH BID 08/20/16 08/20/16 [Symbicort 160/4.5] Insulin DETEMIR [Levemir Flextouch] 20 unit SQ HS 08/20/16 08/20/16 Nitroglycerin [Nitrostat] 0.4 mg SL Q5M PRN 08/20/16 08/20/16 Rivaroxaban [Xarelto] 15 mg PO BID 08/20/16 08/20/16 Previous Rx's Medication Instructions Recorded ALPRAZolam [Xanax 0.5 MG Tablet] 0.5 mg PO HS PRN #30 tablet 08/14/16 Furosemide [Lasix] 80 mg PO BID 30 Days 08/14/16 Loperamide [Imodium] 2 mg PO Q6HR #10 capsule 08/14/16 Allergies Allergy/AdvReac Type Severity Reaction Status Date / Time Onion Allergy Intermediate Swelling Verified 08/05/16 09:37 of Lip/Tongue/Throat ciprofloxacin [From Cipro] Allergy Hives Verified 08/04/16 19:26 codeine Allergy Hives Verified 08/04/16 19:26 insulin glargine Allergy Hives Verified 08/04/16 19:26 [From Lantus] aspirin AdvReac Nausea Verified 08/04/16 22:12 All systems ED: reviewed and negative except as stated. Past Medical History - Past Medical History Medical history: Reports: cardiomyopathy, cirrhosis, CHF, COPD, coronary artery disease, CVA, diabetes, peripheral artery disease, renal disease, TIA, other Surgical history: Reports: appendectomy, cholecystectomy, hysterectomy, orthopedic, other, other Psychiatric history: Reports: anxiety [employer] history: Reports: non-contributory - Social History Smoking Status: Former smoker Smokeless Tobacco Status: No Alcohol use: Reports: none Drug use: Reports: none Physical Exam Vital signs reviewed-afebrile, tachypneic, not hypoxic on supplemental oxygen. General: Patient is alert, oriented, and in moderate respiratory distress. 4-5 word conversational dyspnea on submental oxygen. HEENT: No facial asymmetry. Head is normocephalic and atraumatic. PERRLA, EOMI. Nasal turbinates moist and pink. Posterior pharynx without exudates or cobblestoning. Trachea midline, no palpable thyroid nodules, no thyromegaly. Cardiovascular: Heart regular rate and rhythm without clicks, rubs, gallops, or murmurs. No JVD. PMI nondisplaced. Respiratory: Symmetric chest rise with poor respiratory effort and prolonged expiratory phase. Bilateral breath sounds diminished with bibasilar crackles; no overt wheezing. Abdomen: Obese. Bowel sounds present normoactive x-4 quadrants. Abdomen is soft, nondistended, and nontender. Psych: Patient's affect is appropriate for situation. - General Limitations: no limitations General appearance: alert, in no apparent distress Course Course Narrative: Patient verbally informing herself that she is DNR, CCA, DNI. Patient's presentation is concerning for exacerbation of CHF versus possible malignancy even her COPD and recurrent effusion versus possible pneumonia Chest x-ray concerning for bilateral worsening effusion with possible superimposed pneumonia. Clinically suspect worsening exacerbation of congestive heart failure with possible component of loss of oncotic pressure from diabetic proteinuria. 1549 Spoke with the patient regarding BiPAP which she refuses citing claustrophobia. She gives the example that she cannot have the dorsum the room closed as it would worsen her claustrophobia and BiPAP is much worse for her than having the doors closed. Spoke at length regarding why and how it would help her. She continues to refuse. I discussed with her that the next step would be intubation which she also refuses as she informs me she is DNR. We came to agreement to administer duo nebulizer and reassess. She might be open to the option of BiPAP light sedation. 1630 Patient reassessed after duo nebs and nitroglycerin sublingual. She no longer has conversational dyspnea on supple oxygen. Patient believes both the summer to nitroglycerin as well as a duo nebs equally helped her symptoms. Her main complaint at this time is headache which is likely secondary to the nitroglycerin. Discussed with the patient my concern over her general condition as well as her worsening chest x-ray, concerning pulmonary exam of bibasilar crackles, elevated BNP, a concern for presentation to the emergency department less than 1 week after discharge from this facility. She agrees to admission to this facility. Spoke with the admitting hospitalist, Dr. Johnson, who agrees to accept the patient and requests a 2nd floor room. Dr. Johnson is familiar with the patient from her previous admission. Vital Signs Temperature 98.5 F 08/20/16 14:33 Pulse Rate 74 08/20/16 14:33 Respiratory Rate 22 08/20/16 14:33 Blood Pressure 151/82 08/20/16 14:33 O2 Sat by Pulse Oximetry 96 08/20/16 14:33 Temperature 98.5 F 08/20/16 14:33 Pulse Rate 87 08/20/16 20:02 Respiratory Rate 20 08/20/16 20:02 Blood Pressure 155/89 08/20/16 20:02 O2 Sat by Pulse Oximetry 96 08/20/16 20:02 Oxygen Delivery Oxygen Delivery Nasal Cannula Shortness of Breath/Dyspnea - Lab Data Result diagrams: 08/20/16 16:15 08/20/16 16:15 Lab Results 08/20/16 08/20/16 08/20/16 Range/Units 16:15 16:15 16:15 WBC 8.8 (4.3-11.1) K/mcL RBC 4.46 (3.82-4.97) M/mcL Hgb 11.8 (11.5-15.4) g/dL Hct 38.7 (35.3-44.9) % MCV 86.8 (83.0-100.0) fL MCH 26.5 L (28.0-33.3) pg MCHC 30.5 L (31.6-35.5) g/dL RDW 16.5 H (11.5-14.5) % Plt Count 344 (140-400) K/mcL MPV 9.5 (9.4-12.4) fL Immature Gran % 0.6 (0-4) % Seg Neutrophils % 65.6 % Lymphocytes % 24.2 % Monocytes % 7.0 % Eosinophils % 1.5 % Basophils % 1.1 % Neutrophils # 5.8 (1.6-8.9) K/mcL Lymphocytes # 2.1 (0.6-4.6) K/mcL Monocytes # 0.6 (0.0-1.3) K/mcL Eosinophils # 0.1 (0.0-0.6) K/mcL Basophils # 0.1 (0.0-0.2) K/mcL Sodium 138 (136-145) mEq/L Potassium 3.9 (3.5-4.5) mEq/L Chloride 103 (98-109) mEq/L Carbon Dioxide 26 (19-29) mEq/L BUN 23 H (7-20) mg/dL Creatinine 1.28 H (0.57-1.11) mg/dL Est GFR ( Amer) 54 L (> 60) Est GFR (Non-Af Amer) 45 L (> 60) BUN/Creatinine Ratio 18 (6-26) Glucose 147 H (70-99) mg/dL Calculated Osmolality 292 (280-300) Calcium 8.1 L (8.6-10.8) mg/dL Troponin I 0.02 (0-0.03) ng/mL B-Natriuretic Peptide (0-100) pg/mL 08/20/16 Range/Units 16:15 WBC (4.3-11.1) K/mcL RBC (3.82-4.97) M/mcL Hgb (11.5-15.4) g/dL Hct (35.3-44.9) % MCV (83.0-100.0) fL MCH (28.0-33.3) pg MCHC (31.6-35.5) g/dL RDW (11.5-14.5) % Plt Count (140-400) K/mcL MPV (9.4-12.4) fL Immature Gran % (0-4) % Seg Neutrophils % % Lymphocytes % % Monocytes % % Eosinophils % % Basophils % % Neutrophils # (1.6-8.9) K/mcL Lymphocytes # (0.6-4.6) K/mcL Monocytes # (0.0-1.3) K/mcL Eosinophils # (0.0-0.6) K/mcL Basophils # (0.0-0.2) K/mcL Sodium (136-145) mEq/L Potassium (3.5-4.5) mEq/L Chloride (98-109) mEq/L Carbon Dioxide (19-29) mEq/L BUN (7-20) mg/dL Creatinine (0.57-1.11) mg/dL Est GFR ( Amer) (> 60) Est GFR (Non-Af Amer) (> 60) BUN/Creatinine Ratio (6-26) Glucose (70-99) mg/dL Calculated Osmolality (280-300) Calcium (8.6-10.8) mg/dL Troponin I (0-0.03) ng/mL B-Natriuretic Peptide 3185 H (0-100) pg/mL
[2016-08-20] MEDS ORDERED: Ipratropium/Albuterol Neb 3 ML IH ONE (15:44)
[2016-08-20 16:35] LABS: Basophils # 0.1 K/mcL (0.0-0.2); Basophils % 1.1 %; Eosinophils # 0.1 K/mcL (0.0-0.6); Eosinophils % 1.5 %; Hematocrit 38.7 % (35.3-44.9); Hemoglobin 11.8 g/dL (11.5-15.4); Immature Granulocytes % 0.6 % (0-4); Lymphocytes # 2.1 K/mcL (0.6-4.6); Lymphocytes % 24.2 %; Mean Corpuscular HGB Conc 30.5 g/dL (31.6-35.5); Mean Corpuscular Hemoglobin 26.5 pg (28.0-33.3); Mean Corpuscular Volume 86.8 fL (83.0-100.0); Mean Platelet Volume 9.5 fL (9.4-12.4); Monocytes # 0.6 K/mcL (0.0-1.3); Neutrophils # 5.8 K/mcL (1.6-8.9); Platelet Count 344 K/mcL (140-400); Red Blood Count 4.46 M/mcL (3.82-4.97); Red Cell Distribution Width 16.5 % (11.5-14.5); Segmented Neutrophils % 65.6 %
[2016-08-20 16:52] LABS: Calcium 8.1 mg/dL (8.6-10.8); Potassium 3.9 mEq/L (3.5-4.5)
[2016-08-20] MEDS ORDERED: Furosemide 40 MG/4 ML VIAL IVP ONE (19:18)
[2016-08-20] MEDS ORDERED: Acetaminophen 325 MG TABLET PO PRN (20:17)
[2016-08-20] MEDS ORDERED: *HR* Morphine 2 MG/ML SYRINGE IVP PRN (20:17)
[2016-08-20] MEDS ORDERED: Naloxone 0.4 MG/ML INJ IVP PRN (20:17)
[2016-08-20] MEDS ORDERED: Ondansetron 4 MG/2 ML VIAL IVP PRN (20:17)
--- NOTE | 2016-08-20 20:29 | Internal Med History&Physical ---
Date of Encounter: 08/20/16 Time of Encounter: 19:40 Assessment and Plan (1) Acute and chronic respiratory failure ([id number]) Current visit: Yes Status: Acute Patient was sent home on 3L/min O2 via [facility] after last admission, due to COPD and CHF. She is worse due to volume overload today; chest XRay worse, results as above, and BNP worsening. Continue supplemental O2 and wean down FiO2 as tolerated; she is noted to be tachypneic, using accessory muscles, at risk for fatigue, explained BiPAP use with mild sedatives/anxiolytics, agreeable; PRN BiPAP; will get ABG now; Qualifiers: Respiratory failure complication: hypoxia Qualified Code(s): J96.21 - Acute and chronic respiratory failure with hypoxia (2) Acute CHF Current visit: Yes Status: Acute Recent Echocardiogram shows EF 35-40%; patient has recurrent pleural effusions and pulmonary edema. I suspect PO Lasix is ineffective for her. Will try IV Bumex for now along with fluid restriction, daily weights and urine output monitoring. Will get Cardiology input regarding changing diuretics or adding Zaroxolyn. Continue beta-carlos, nitrates, ACEI; Telemetry monitoring. Qualifiers: Congestive heart failure type: combined Qualified Code(s): I50.41 - Acute combined systolic (congestive) and diastolic (congestive) heart failure (3) Bilateral pleural effusion Current visit: Yes Status: Chronic Acute on chronic; likely transudative due to CHF; patient underwent right thoracentesis last week during her last admission; continue diuresis and consider repeat thoracentesis for persistent effusions; (4) CKD (chronic kidney disease) Current visit: Yes Status: Chronic serum creatinine noted to be improving; recent admission with acute renal failure, due to worsening diabetic nephropathy/proteinuria in the setting of aggressive diuresis; continue to monitor; Qualifiers: Chronic kidney disease stage: stage 3 (moderate) Qualified Code(s): N18.3 - Chronic kidney disease, stage 3 (moderate) (5) CAD (coronary artery disease) Current visit: Yes Status: Chronic Qualifiers: Coronary Disease-Associated Artery/Lesion type: [place] artery [place] vs. transplanted heart: [place] heart Associated angina: without angina Qualified Code(s): I25.10 - Atherosclerotic heart disease of [place] coronary artery without angina pectoris (6) COPD (chronic obstructive pulmonary disease) Current visit: Yes Status: Chronic continue supplemental O2, PRN bronchodilators, Symbicort; currently reports quitting smoking, on Nicotine transdermal patch; Qualifiers: COPD type: unspecified COPD Qualified Code(s): J44.9 - Chronic obstructive pulmonary disease, unspecified (7) DVT (deep venous thrombosis) Current visit: Yes Status: Chronic continue Xarelto; Qualifiers: DVT location: upper extremity Affected thrombotic vein of extremity: brachial Laterality: left Chronicity: chronic Qualified Code(s): I82.722 - 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 (8) Diabetes mellitus Current visit: Yes Status: Chronic [place] blood glucose monitoring with basal bolus insulin regimen; diabetic diet; Qualifiers: Diabetes mellitus type: type 2 Diabetes mellitus complication status: with kidney complications Diabetes mellitus complication detail: with chronic kidney disease Diabetes mellitus nursing home insulin use: with nursing home use Chronic kidney disease stage: stage 3 (moderate) Qualified Code(s): E11.22 - Type 2 diabetes mellitus with diabetic chronic kidney disease; N18.3 - Chronic kidney disease, stage 3 (moderate); Z79.4 - long term (current) use of insulin (9) Hypertension Current visit: Yes Status: Chronic Qualifiers: Hypertension type: essential hypertension Qualified Code(s): I10 - Essential (primary) hypertension (10) PVD (peripheral vascular disease) Current visit: Yes Status: Chronic (11) CVA (cerebral vascular accident) Current visit: Yes Status: Inactive Qualifiers: CVA mechanism: unspecified Qualified Code(s): I63.9 - Cerebral infarction, unspecified Internal Medicine - H&P: HPI Chief complaint: Shortness of breath Admitted From: Emergency Dept Plans for Post Hospital Care: Home History of present illness: Ms. Mckeon is a 46 year old female with h/o- systolic CHF, diabetic nephropathy , DM, COPD, presents with c/o- 2-3 day h/o dyspnea. Patient was recently discharged from our hospital less than a week ago after being treated for anasarca, worsening renal failure, underwent thoracentesis, and was sent home on Lasix 80mg twice daily. She reports feeling well initially after discharge, reports compliance to 1.5L/day fluid restriction and Lasix, but for the last 2- 3 days, she has been having progressive dyspnea associated with orthopnea and chest pain/tightness. Dyspnea is constant, even at rest, associated with moist hacking cough, occasionally with whitish sputum. Her chest pain improved with Nitroglycerine paste that she received in the ER. She mentions that despite taking oral Lasix, her urine output has been low, she is urinating only 2-3 times/day. Past Med Surg Social Fam HX - Past Medical History Medical history: cardiomyopathy, cirrhosis, CHF, COPD, coronary artery disease, CVA, diabetes, peripheral artery disease, renal disease, TIA, other Psychiatric history: anxiety - Past Surgical History Surgical History: appendectomy, cholecystectomy, hysterectomy, orthopedic, other , other - Social History Smoking Status: Former smoker (has been smoking until last hospitalization; now on Nicotine patches) Smokeless Tobacco Status: No Alcohol use: none Drug use: none Occupational status: disabled Current living situation: Home, With Family Activity Level: Uses cane/walker, Wheelchair bound Recent Out of Country Travel Within the Last 8 Weeks: No - Family History Father Adopted: No Family Member Ethnicity: Non- Living Status: Hx Family Cardiac Disorders: No Hx Family Respiratory Disorders: Yes Hx Family Cancer: Yes Hx Family Endocrine Disorder: Yes Hx Family Neurologic Disorders: No Internal Medicine - H&P: Meds Albuterol Sulfate [Proair Hfa] 2 puff IH Q4H PRN 06/18/16 [History] Atorvastatin [Lipitor] 40 mg PO HS 06/18/16 [History] Clopidogrel [Plavix] 75 mg PO DAILY 06/18/16 [History] Fenofibrate [Lofibra] 160 mg PO DAILY 06/18/16 [History] Gabapentin [Neurontin] 400 mg PO TID 06/18/16 [History] Isosorbide MONOnitrate (24 HR) [Imdur] 60 mg PO DAILY 06/18/16 [History] Lisinopril 2.5 mg PO DAILY 06/18/16 [History] Metoprolol XL (24 HR) Succ [Toprol Xl] 50 mg PO DAILY 06/18/16 [History] Potassium Chloride [Klor-Con Sprinkle] 10 meq PO BID 06/18/16 [History] ALPRAZolam [Xanax 0.5 MG Tablet] 0.5 mg PO HS PRN #30 tablet 08/14/16 [Rx] Furosemide [Lasix] 80 mg PO BID 30 Days 08/14/16 [Rx] Loperamide [Imodium] 2 mg PO Q6HR #10 capsule 08/14/16 [Rx] Budesonide/Formoterol 160/4.5 [Symbicort 160/4.5] 2 puff IH BID 08/20/16 [ History] Insulin DETEMIR [Levemir Flextouch] 20 unit SQ HS 08/20/16 [History] Nitroglycerin [Nitrostat] 0.4 mg SL Q5M PRN 08/20/16 [History] Rivaroxaban [Xarelto] 15 mg PO BID 08/20/16 [History] Allergies Onion Allergy (Intermediate, Verified 08/05/16 09:37) Swelling of Lip/Tongue/Throat ciprofloxacin [From Cipro] Allergy (Verified 08/04/16 19:26) Hives codeine Allergy (Verified 08/04/16 19:26) Hives insulin glargine [From Lantus] Allergy (Verified 08/04/16 19:26) Hives aspirin Adverse Reaction (Verified 08/04/16 22:12) Nausea All Systems PM: A 10-system review of systems was performed and is negative for pertinent findings except as documented above in the HPI. - Constitutional Constitutional: no chills, no fever(s), no night sweats - EENT Eyes: no change in vision, no discharge, no pain, no photophobia Ears: no ear discharge, no ear pain, no tinnitus Nose, mouth and throat: no dysphagia, no nasal discharge, no neck pain, no sore throat - Cardiovascular Cardiovascular ROS IM: chest pain, dyspnea, dyspnea on exertion, edema, orthopnea - Respiratory Respiratory: cough, dyspnea, dyspnea on exertion - Gastrointestinal Gastrointestinal: diarrhea, loose stools - Genitourinary Genitourinary: no change in urinary stream, no dysuria, no flank pain, no hematuria - Musculoskeletal Musculoskeletal ROS IM: no numbness, no tingling - Integumentary Integumentary IM: no rash, no unusual bruising - Neurological Neurological ROS: no confusion, no convulsions, no focal weakness, no numbness, no tingling, no tremor(s) - Hematologic/Lymphatic Hematologic/Lymphatic: no easy bruising - Constitutional Vitals: Temp Pulse Resp BP Pulse Ox 98.5 F 87 20 155/89 96 08/20/16 14:33 08/20/16 20:02 08/20/16 20:02 08/20/16 20:02 08/20/16 20:02 General appearance: Present: mild distress (tachypneic on speaking long sentences), A&O X 3, answers questions appropriately - Respiratory Respiratory exam: Present: rales (bibasal crackles), tachypnea. Absent: accessory muscle use, rhonchi, wheezes - Cardiovascular Cardiovascular exam: Present: RRR, +S1, +S2, tachycardia. Absent: diastolic murmur, gallop, rubs, systolic murmur - GI/Abdominal GI/Abdominal exam: Present: normal bowel sounds, soft, no peritoneal signs. Absent: distended, tenderness - Extremities Exam Extremities exam: Present: full ROM, pedal edema (1+ pedal edema B/L, significantly improved since last admission), warm, radial pulses palpable and symetrical. Absent: calf tenderness, cyanotic - Neurological Exam Neurological exam: Present: CN II-XII intact, oriented X3, no focal deficits. Absent: pronater drift, facial droop, speech deficit - Skin Skin exam: Present: dry, intact Internal Med - H&P Results - Labs CBC & Chem 7: 08/20/16 16:15 08/20/16 16:15 - EKG Data -: EKG Interpreted by Myself EKG shows normal: sinus rhythm, ST-T waves (nonspecific changes in anterior leads) Rate: normal - Diagnostic Studies Chest x-ray Status: image reviewed by me (enlarged cardiac shadow, pulmonary vascular congestion, worsening pulmonary edema right>left, B/L pleural effusions)
[2016-08-20] MEDS: Budesonide/Formoterol 160/4.5 MDI IH SCH (22:09)
[2016-08-20] MEDS: Ipratropium/Albuterol Neb 3 ML IH PRN (22:15)
[2016-08-20] MEDS: ALPRAZolam 0.5 MG TABLET PO PRN (22:34)
[2016-08-20] MEDS: *HR* OxyCODONE Immed Rel 5 MG TABLET PO PRN (22:36)
[2016-08-20] MEDS: Gabapentin 400 MG CAPSULE PO SCH (22:36)
[2016-08-20] MEDS: *HR* Rivaroxaban 15 MG TABLET PO SCH (22:36)
[2016-08-21 05:35] LABS: Basophils # 0.1 K/mcL (0.0-0.2); Basophils % 0.9 %; Eosinophils # 0.1 K/mcL (0.0-0.6); Eosinophils % 1.4 %; Hematocrit 32.1 % (35.3-44.9); Immature Granulocytes % 0.6 % (0-4); Lymphocytes # 1.6 K/mcL (0.6-4.6); Lymphocytes % 15.8 %; Mean Corpuscular HGB Conc 30.8 g/dL (31.6-35.5); Mean Corpuscular Hemoglobin 26.5 pg (28.0-33.3); Mean Corpuscular Volume 86.1 fL (83.0-100.0); Mean Platelet Volume 9.2 fL (9.4-12.4); Monocytes # 0.6 K/mcL (0.0-1.3); Monocytes % 6.1 %; Neutrophils # 7.4 K/mcL (1.6-8.9); Platelet Count 330 K/mcL (140-400); Red Blood Count 3.73 M/mcL (3.82-4.97); Red Cell Distribution Width 16.5 % (11.5-14.5); Segmented Neutrophils % 75.2 %
[2016-08-21 05:49] LABS: Hemoglobin 9.9 g/dL (11.5-15.4)
[2016-08-21] MEDS ORDERED: Bumetanide 1 MG/4 ML VIAL IVP SCH (06:00)
[2016-08-21 06:03] LABS: Calcium 8.1 mg/dL (8.6-10.8); Magnesium 1.7 mg/dL (1.6-2.6); Phosphorous 4.4 mg/dL (2.3-4.7); Potassium 4.1 mEq/L (3.5-4.5)
[2016-08-21] MEDS: Gabapentin 400 MG CAPSULE PO SCH ×3 (08:01→20:12)
[2016-08-21] MEDS: *HR* OxyCODONE Immed Rel 5 MG TABLET PO PRN ×2 (08:01→20:12)
[2016-08-21] MEDS: Fenofibrate 54 MG TABLET PO SCH (08:01)
[2016-08-21] MEDS: *HR* Rivaroxaban 15 MG TABLET PO SCH ×2 (08:02→20:12)
[2016-08-21] MEDS: Metoprolol XL (24 HR) Succ 50 MG TAB.ER.24H PO SCH (08:02)
[2016-08-21] MEDS: Isosorbide MONOnitrate (24 HR) 60 MG TAB.ER.24H PO SCH (08:02)
[2016-08-21] MEDS: Ipratropium/Albuterol Neb 3 ML IH PRN ×2 (08:07→20:44)
[2016-08-21] MEDS: Budesonide/Formoterol 160/4.5 MDI IH SCH ×2 (08:07→20:44)
--- NOTE | 2016-08-21 08:10 | Cardiology Consult Note ---
<Velasquez Lopez - Last Filed: 08/21/16 10:32> Date of Encounter: 08/21/16 Time of Encounter: 08:10 Assessment and Plan (1) Acute CHF Current Visit: Yes Status: Acute Acute on chronic systolic CHF. likely exacerbated after not taking Lasix for 2 days. She also describes a high salt diet. She eats a lot of canned foods. Repeat hospital admissions over the last 6 months for CHF. Suspect noncompliance. BNP 3185. CXR shows recurrent moderate bilaterla pleural effusions and acute interstitial opacities. TTE 08/09/2016 showed an EF of 35-40%. There was a large pleural effusion. This was a limited study. TTE 06/18/2016EF 40% with global systolic reduction and variations and wall motion abnormality as seen on prior echocardiogram. Mild to moderate mitral regurgitation, mild tricuspid regurgitation, mild pulmonic regurgitation. There is no pulmonary hypertension. Trivial pericardial effusion. Lasix was changed to Bumex by primary team. No significant output documented. Patient reports she feels better. Continue IV diuresis. Increase Bumex dose. Strict I&O and daily weight. Qualifiers: Congestive heart failure type: combined Qualified Code(s): I50.41 - Acute combined systolic (congestive) and diastolic (congestive) heart failure (2) Acute and chronic respiratory failure ([id number]) Current Visit: Yes Status: Acute Acute on chronic respiratory failure. Exacerbated by acute on chronic CHF and recurrent pleural effusions. Noncompliance with medications and low-salt diet is suspected. We will increase her Bumex dose. Qualifiers: Respiratory failure complication: hypoxia Qualified Code(s): J96.21 - Acute and chronic respiratory failure with hypoxia (3) CAD (coronary artery disease) Current Visit: Yes Status: Chronic S/p multiple PCI. Last LHC in 2013. LHC revealed severe two vessel coronary artery disease. EF 40%. Patient had successful PTCA/Drug-Eluting Stent placement in the proximal and distal Circ ISR. Long occluded RCA -instent - from ostium to PDA with left to right collaterals 20% stenosis in the Proximal LAD. The lesion has no thrombus present. Continue aspirin, statin, and beta carlos. Qualifiers: Coronary Disease-Associated Artery/Lesion type: [place] artery [place] vs. transplanted heart: [place] heart Associated angina: without angina Qualified Code(s): I25.10 - Atherosclerotic heart disease of [place] coronary artery without angina pectoris Discussion w patient/family: The assessment and plan as outlined above was discussed with the patient and/or family members who expressed understanding and agreement. All questions were answered. Thank you for involving us in the care of your patient. Please call with any questions. History of Present Illness Consult date: 08/21/16 Requesting physician: Lynda Diamond Consult reason: Acute on chronic systolic CHF Chief complaint: SOB History of present illness: Ms. Mckeon. a 46 year old female with a past medical history of CAD s/p multiple PCI, systolic CHF, EF 35-40%, diabetic nephropathy, DM, COPD, CVA, and DVT on xarelto who presents with a complaint of increasing dyspnea, chest heaviness and cough over the past 2-3 days. She complained some nausea and vomiting for 2 days and was unable to take her medications and including lasix. She reports chronic nausea and vomiting. She is status post recent admission for CHF, anasarca, and worsening renal failure. During her last hospital stay she underwent thoracentesis. States she had thoracentesis twice this year. Chest x-ray on this admission shows moderate bilateral pleural effusions and acute interstitial opacities representing increasing pulmonary edema versus atypical pneumonia. She is afebrile and white blood cells are normal. Her nausea and vomiting has resolved. She denies any chest pain or palpitations. Past Med Surg Social Fam HX - Past Medical History Medical history: cardiomyopathy, cirrhosis, CHF, COPD, coronary artery disease, CVA, DVT, diabetes, peripheral artery disease, renal disease, TIA, other Psychiatric history: anxiety, depression - Past Surgical History Surgical History: appendectomy, cholecystectomy, hysterectomy, orthopedic, other , other - Social History Smoking Status: Former smoker Smokeless Tobacco Status: No Alcohol use: none Drug use: none - Family History Father Adopted: [place]: [place] Family Member Ethnicity: Non- Living Status: Age at : 60 Cause of : heart Hx Family Cardiac Disorders: Yes Hx Family Respiratory Disorders: Yes Hx Family Cancer: Yes Hx Family Endocrine Disorder: Yes Hx Family Neurologic Disorders: No Medications and Allergies Albuterol Sulfate [Proair Hfa] 2 puff IH Q4H PRN 06/18/16 [History] Atorvastatin [Lipitor] 40 mg PO HS 06/18/16 [History] Clopidogrel [Plavix] 75 mg PO DAILY 06/18/16 [History] Fenofibrate [Lofibra] 160 mg PO DAILY 06/18/16 [History] Gabapentin [Neurontin] 400 mg PO TID 06/18/16 [History] Isosorbide MONOnitrate (24 HR) [Imdur] 60 mg PO DAILY 06/18/16 [History] Lisinopril 2.5 mg PO DAILY 06/18/16 [History] Metoprolol XL (24 HR) Succ [Toprol Xl] 50 mg PO DAILY 06/18/16 [History] Potassium Chloride [Klor-Con Sprinkle] 10 meq PO BID 06/18/16 [History] ALPRAZolam [Xanax 0.5 MG Tablet] 0.5 mg PO HS PRN #30 tablet 08/14/16 [Rx] Furosemide [Lasix] 80 mg PO BID 30 Days 08/14/16 [Rx] Loperamide [Imodium] 2 mg PO Q6HR #10 capsule 08/14/16 [Rx] Budesonide/Formoterol 160/4.5 [Symbicort 160/4.5] 2 puff IH BID 08/20/16 [ History] Insulin DETEMIR [Levemir Flextouch] 20 unit SQ HS 08/20/16 [History] Nitroglycerin [Nitrostat] 0.4 mg SL Q5M PRN 08/20/16 [History] Rivaroxaban [Xarelto] 15 mg PO BID 08/20/16 [History] Allergies Onion Allergy (Intermediate, Verified 08/05/16 09:37) Swelling of Lip/Tongue/Throat ciprofloxacin [From Cipro] Allergy (Verified 08/04/16 19:26) Hives codeine Allergy (Verified 08/04/16 19:26) Hives insulin glargine [From Lantus] Allergy (Verified 08/04/16 19:26) Hives aspirin Adverse Reaction (Verified 08/04/16 22:12) Nausea All Systems Review: A 10-system review of systems was performed and is negative for pertinent findings except as documented above in the HPI. Physical Examination Vital Signs, Last 4 Hours Temp Pulse Resp BP Pulse Ox 08/21/16 07:32 98 F 71 14 153/70 94 08/21/16 05:54 98.1 F 74 20 149/71 91 General: Conversant, No Apparent Distress HEENT: Atraumatic, Normocephaly, Mucus Membranes Moist Neck: No JVD, Normal carotid pulses Cardiac: Reg Rate and Rhythm, Normal S1 and S2, No Murmur Lungs: Other (Respirations are easy and upright position. Lung sounds are diminished throughout.) Neuro: Alert and responsive, No focal deficits noted Abdomen: Soft, Non-Tender Skin: No rashes noted on visualized skin Musculoskeletal: No Chest Wall Tenderness Extremities: No Clubbing, Normal Pulses, Other (Bilateral lower extremity with purplish discoloration and wrinkling after diuresis. There is 1+ edema up to her knees.) Results 08/21/16 05:13 08/21/16 05:13 Lab Results 08/20/16 08/21/16 08/21/16 20:39 05:13 05:13 WBC 9.9 Hgb 9.9 L D Hct 32.1 L Plt Count 330 Sodium Potassium Chloride Carbon Dioxide BUN Creatinine Glucose Calcium Magnesium Troponin I 0.03 0.02 08/21/16 05:13 WBC Hgb Hct Plt Count Sodium 140 Potassium 4.1 Chloride 105 Carbon Dioxide 26 BUN 26 H Creatinine 1.20 H Glucose 185 H Calcium 8.1 L Magnesium 1.7 Troponin I Chest X-Ray 08/20/16 14:47 IMPRESSION: 1. Cardiomegaly. 2. Moderate bilateral pleural effusions with bibasilar atelectasis. 3. Diffusely increased interstitial opacities may indicate evolving pulmonary edema versus atypical pneumonia. D/ / 08/20/2016 15:19:38 Daniel Dodson MD / [facility] Interpreting Provider: Daniel Dodson MD - Imaging and Cardiology Echo: report reviewed Cardiac cath: report reviewed Consult Discharge Plan - Plan Referrals: NO,PCP [Primary Care Provider] - <Barrie Seymour - Last Filed: 08/21/16 11:09> Date of Encounter: 08/21/16 Assessment and Plan Discussion w patient/family: The assessment and plan as outlined above was discussed with the patient and/or family members who expressed understanding and agreement. All questions were answered. Thank you for involving us in the care of your patient. Please call with any questions. History of Present Illness History of present illness: Ms. Mckeon is a 46 year old female All Systems Review: A 10-system review of systems was performed and is negative for pertinent findings except as documented above in the HPI. Physical Examination Vital Signs, Last 4 Hours Temp Pulse Resp BP Pulse Ox 08/21/16 07:45 98 F 71 14 153/70 94 08/21/16 07:32 98 F 71 14 153/70 94 Results 08/21/16 05:13 08/21/16 05:13 Lab Results 08/20/16 08/21/16 08/21/16 20:39 05:13 05:13 WBC 9.9 Hgb 9.9 L D Hct 32.1 L Plt Count 330 Sodium Potassium Chloride Carbon Dioxide BUN Creatinine Glucose Calcium Magnesium Troponin I 0.03 0.02 08/21/16 05:13 WBC Hgb Hct Plt Count Sodium 140 Potassium 4.1 Chloride 105 Carbon Dioxide 26 BUN 26 H Creatinine 1.20 H Glucose 185 H Calcium 8.1 L Magnesium 1.7 Troponin I Attestation Statement - Attestation Attestation: Pt seen and examined a/w a/p by LUCILA Hampton Pt here for worsening CHF secondary to non compliance with meds bob diuretic s Presently is less sob, no pnd, cough VSS JVD: 6-7 cm Chest: clear CVS: no s3 plan a/w GXT cont with present medical regimen
[2016-08-21] MEDS ORDERED: D5% in Water 1,000 ML IVC PRN (12:31)
[2016-08-21] MEDS ORDERED: Dextrose Gel 15 GM PO PRN ×2 (12:31)
[2016-08-21] MEDS ORDERED: *HR* Dextrose 50 % in Water (Syg) 50 ML SYRINGE IVP PRN (12:31)
[2016-08-21] MEDS ORDERED: metOLazone 2.5 MG TABLET PO ONE (14:24)
[2016-08-21] MEDS ORDERED: Furosemide 40 MG TABLET PO ONE (15:30)
[2016-08-21] MEDS: Insulin LISPRO 300 UNITS/3 ML VIAL SQ SCH ×2 (16:26→22:02)
[2016-08-21] MEDS ORDERED: Bumetanide 1 MG TABLET PO SCH (17:00)
--- NOTE | 2016-08-21 17:55 | Internal Med Progress Note ---
Date of Encounter: 08/21/16 Time of Encounter: 17:53 - Assessment and plan (1) Diabetes mellitus Current Visit: Yes Status: Chronic Assessment and plan: Insulin sliding scale. Fingerstick blood glucose 4 times daily. Diabetic diet. Qualifiers: Diabetes mellitus type: type 2 Diabetes mellitus complication status: with kidney complications Diabetes mellitus complication detail: with chronic kidney disease Diabetes mellitus correction insulin use: with rn long term care use Chronic kidney disease stage: stage 3 (moderate) Qualified Code(s): E11.22 - Type 2 diabetes mellitus with diabetic chronic kidney disease; N18.3 - Chronic kidney disease, stage 3 (moderate); Z79.4 - long term care phlebotomist (current) use of insulin (2) Noncompliance Current Visit: No Status: Chronic Assessment and plan: I suspect dietary noncompliance and possible medication noncompliance. I have reviewed her medical records from her previous admission when she received treatment with Lasix and she responded to treatment and her CHF symptoms have improved and therefore I will switch her back to Lasix. I have emphasized importance of medication compliance and will continue to children counselor her regarding that. (3) CHF (congestive heart failure) Current Visit: No Status: Acute Assessment and plan: Recent echocardiogram shows ejection fraction of 35%. I appreciate cardiology recommendations. Continue with diuresis. Emphasized medication and dietary compliance. I will switch her back to Lasix and add 1 dose of metolazone. Qualifiers: Congestive heart failure type: systolic Congestive heart failure chronicity : acute Qualified Code(s): I50.21 - Acute systolic (congestive) heart failure (4) Tobacco abuse Current Visit: No Status: Chronic Assessment and plan: I have encouraged her to refrain from smoking. She says that she quit smoking 2 weeks ago. (5) COPD (chronic obstructive pulmonary disease) Current Visit: Yes Status: Chronic Assessment and plan: We will use inhaled bronchodilators. Qualifiers: COPD type: unspecified COPD Qualified Code(s): J44.9 - Chronic obstructive pulmonary disease, unspecified (6) CKD (chronic kidney disease) Current Visit: Yes Status: Chronic Qualifiers: Chronic kidney disease stage: stage 3 (moderate) Qualified Code(s): N18.3 - Chronic kidney disease, stage 3 (moderate) (7) Acute and chronic respiratory failure ([id number]) Current Visit: Yes Status: Acute Assessment and plan: Supplemental oxygen by nasal cannula. Qualifiers: Respiratory failure complication: hypoxia Qualified Code(s): J96.21 - Acute and chronic respiratory failure with hypoxia - Subjective Interval history: Patient reports mild shortness of breath at rest, improved from yesterday. She presented to the hospital yesterday with severe shortness of breath and dyspnea on exertion associated with cough. - Constitutional Vitals: Temp Pulse Resp BP Pulse Ox 98.5 F 70 16 153/75 96 08/21/16 15:35 08/21/16 15:35 08/21/16 15:35 08/21/16 15:35 08/21/16 15:35 General appearance: Present: mild distress (tachypneic on speaking long sentences), A&O X 3, answers questions appropriately - Neck Neck exam general surgery: Present: supple, trachea midline. Absent: lymphadenopathy - Respiratory Respiratory exam: Present: rales, tachypnea. Absent: accessory muscle use, respiratory distress, rhonchi, wheezes - Cardiovascular Cardiovascular exam: Present: RRR, +S1, +S2. Absent: diastolic murmur, gallop, rubs, systolic murmur - GI/Abdominal GI/Abdominal exam: Present: normal bowel sounds, soft, no peritoneal signs. Absent: distended, tenderness - Neurological Exam Neurological exam: Present: CN II-XII intact, oriented X3, no focal deficits. Absent: pronater drift, facial droop, speech deficit - Skin Skin exam: Present: dry, intact Internal Medicine: Result - Labs CBC & Chem 7: 08/21/16 05:13 08/21/16 05:13 Labs: Short CBC 08/21/16 Range/Units 05:13 WBC 9.9 (4.3-11.1) K/mcL Hgb 9.9 L D (11.5-15.4) g/dL Hct 32.1 L (35.3-44.9) % Plt Count 330 (140-400) K/mcL Neutrophils # 7.4 (1.6-8.9) K/mcL BMP 08/21/16 05:13 Sodium 140 Potassium 4.1 Chloride 105 Carbon Dioxide 26 BUN 26 H Creatinine 1.20 H Glucose 185 H Calcium 8.1 L Cardiac Enzymes 08/20/16 08/21/16 08/21/16 Range/Units 20:39 05:13 10:58 Troponin I 0.03 0.02 0.03 (0-0.03) ng/mL Consult Discharge Plan - Plan Referrals: NO,PCP [Primary Care Provider] -
[2016-08-21] MEDS ORDERED: Insulin DETEMIR 100 UNIT/ML X5UNITS SQ SCH (21:00)
[2016-08-21] MEDS: Nicotine 21 MG PATCH.TD24 TD SCH (22:08)
[2016-08-21] MEDS: GuaiFENesin/Dextromethorphan TABLET PO SCH (22:08)
[2016-08-22 05:45] LABS: Basophils # 0.1 K/mcL (0.0-0.2); Basophils % 0.7 %; Eosinophils # 0.3 K/mcL (0.0-0.6); Eosinophils % 3.6 %; Hematocrit 28.8 % (35.3-44.9); Hemoglobin 9.1 g/dL (11.5-15.4); Immature Granulocytes % 0.5 % (0-4); Lymphocytes # 1.6 K/mcL (0.6-4.6); Lymphocytes % 16.6 %; Mean Corpuscular HGB Conc 31.6 g/dL (31.6-35.5); Mean Corpuscular Hemoglobin 27.2 pg (28.0-33.3); Mean Platelet Volume 9.7 fL (9.4-12.4); Monocytes # 0.6 K/mcL (0.0-1.3); Monocytes % 6.4 %; Neutrophils # 6.8 K/mcL (1.6-8.9); Platelet Count 362 K/mcL (140-400); Red Blood Count 3.35 M/mcL (3.82-4.97); Red Cell Distribution Width 16.5 % (11.5-14.5); Segmented Neutrophils % 72.2 %
[2016-08-22 06:05] LABS: Calcium 7.9 mg/dL (8.6-10.8)
[2016-08-22] MEDS ORDERED: Aminoglycoside Consult 1 EACH MC ONE (07:44)
[2016-08-22] MEDS: Insulin LISPRO 300 UNITS/3 ML VIAL SQ SCH ×4 (08:20→21:35)
[2016-08-22] MEDS: Gabapentin 400 MG CAPSULE PO SCH ×3 (08:25→21:34)
[2016-08-22] MEDS: Isosorbide MONOnitrate (24 HR) 60 MG TAB.ER.24H PO SCH (08:25)
[2016-08-22] MEDS: Fenofibrate 54 MG TABLET PO SCH (08:25)
[2016-08-22] MEDS: GuaiFENesin/Dextromethorphan TABLET PO SCH ×2 (08:25→21:34)
[2016-08-22] MEDS: *HR* Rivaroxaban 15 MG TABLET PO SCH (08:26)
[2016-08-22] MEDS: Nicotine 21 MG PATCH.TD24 TD SCH (08:26)
[2016-08-22] MEDS: Metoprolol XL (24 HR) Succ 50 MG TAB.ER.24H PO SCH (08:26)
--- NOTE | 2016-08-22 09:41 | Cardiology Progress Note ---
Date of Encounter: 08/22/16 Time of Encounter: 09:39 Assessment and Plan Discussion w patient/family: The assessment and plan as outlined above was discussed with the patient and/or family members who expressed understanding and agreement. All questions were answered. Thank you for involving us in the care of your patient. Please call with any questions. with symptoms of orthopnea we will try Lasix 40 IV bid trend renal function Subjective Principal diagnosis: CHF: exacerbation acute on chronic systolic CHF Interval history: PT still has some PND , and orthopnea , is not at her baseline Objective Vital Signs, Last 4 Hours Temp Pulse Resp BP Pulse Ox 08/22/16 07:59 93 08/22/16 07:12 97.6 F 68 16 142/63 93 Results 08/22/16 05:18 08/22/16 05:18 Lab Results 08/21/16 08/22/16 08/22/16 10:58 05:18 05:18 WBC 9.4 Hgb 9.1 L Hct 28.8 L Plt Count 362 Sodium 138 Potassium 4.0 Chloride 103 Carbon Dioxide 28 BUN 34 H Creatinine 1.24 H Glucose 132 H Calcium 7.9 L Troponin I 0.03 Consult Discharge Plan - Plan Referrals: NO,PCP [Primary Care Provider] -
--- NOTE | 2016-08-22 09:44 | Cardiology Progress Note ---
Date of Encounter: 08/22/16 Time of Encounter: 09:30 Assessment and Plan (1) Acute CHF Current Visit: Yes Status: Acute Acute on chronic systolic CHF. likely exacerbated after not taking Lasix for 2 days. She also describes a high salt diet. She eats a lot of canned foods. Repeat hospital admissions over the last 6 months for CHF. Suspect noncompliance. BNP 3185. CXR shows recurrent moderate bilaterla pleural effusions and acute interstitial opacities. TTE 08/09/2016 showed an EF of 35-40%. There was a large pleural effusion. This was a limited study. TTE 06/18/2016EF 40% with global systolic reduction and variations and wall motion abnormality as seen on prior echocardiogram. Mild to moderate mitral regurgitation, mild tricuspid regurgitation, mild pulmonic regurgitation. There is no pulmonary hypertension. Trivial pericardial effusion. Lasix was changed to Bumex by primary team initially. Patient reported not taking Lasix at home for 2 days. She is also noncompliant with salt intake. She is now back on IV lasix started today. She received 5 mg of Zaroxolyn yesterday. Net negative -561. She also reports incontinence. Continue IV diuresis. Strict I&O and daily weight. CHF education reviewed. Qualifiers: Congestive heart failure type: combined Qualified Code(s): I50.41 - Acute combined systolic (congestive) and diastolic (congestive) heart failure (2) Acute and chronic respiratory failure ([id number]) Current Visit: Yes Status: Acute Acute on chronic respiratory failure. Exacerbated by acute on chronic CHF and recurrent pleural effusions. Also known COPD. C/o increasing thick brownish sputum production. Noncompliance with medications and low-salt diet is suspected. IV lasix restarted today. Qualifiers: Respiratory failure complication: hypoxia Qualified Code(s): J96.21 - Acute and chronic respiratory failure with hypoxia (3) CAD (coronary artery disease) Current Visit: Yes Status: Chronic S/p multiple PCI. Last C in 2013. LHC revealed severe two vessel coronary artery disease. EF 40%. Patient had successful PTCA/Drug-Eluting Stent placement in the proximal and distal Circ ISR. Long occluded RCA -instent - from ostium to PDA with left to right collaterals 20% stenosis in the Proximal LAD. The lesion has no thrombus present. Continue aspirin, statin, and beta carlos. Qualifiers: Coronary Disease-Associated Artery/Lesion type: [place] artery [place] vs. transplanted heart: [place] heart Associated angina: without angina Qualified Code(s): I25.10 - Atherosclerotic heart disease of [place] coronary artery without angina pectoris Discussion w patient/family: The assessment and plan as outlined above was discussed with the patient and/or family members who expressed understanding and agreement. All questions were answered. Thank you for involving us in the care of your patient. Please call with any questions. Subjective Principal diagnosis: CHF: exacerbation acute on chronic systolic CHF Interval history: Reports slight improvement in breathing. Continues to have orthopnea and lower extremity edema Objective Vital Signs, Last 4 Hours Temp Pulse Resp BP Pulse Ox 08/22/16 07:59 93 08/22/16 07:12 97.6 F 68 16 142/63 93 General: Conversant, No Apparent Distress HEENT: Atraumatic, Normocephaly, Mucus Membranes Moist Neck: No JVD, Normal carotid pulses Cardiac: Reg Rate and Rhythm, Normal S1 and S2, No Murmur Lungs: Other (Lung sounds diminished throughout with rales in the right upper and lower lobes.) Neuro: Alert and responsive, No focal deficits noted Abdomen: Soft, Non-Tender Skin: No rashes noted on visualized skin Musculoskeletal: No Chest Wall Tenderness Extremities: No Clubbing, No Cyanosis, Normal Pulses, Other (1+ edema to knees) Results 08/22/16 05:18 08/22/16 05:18 Lab Results 08/21/16 08/22/16 08/22/16 10:58 05:18 05:18 WBC 9.4 Hgb 9.1 L Hct 28.8 L Plt Count 362 Sodium 138 Potassium 4.0 Chloride 103 Carbon Dioxide 28 BUN 34 H Creatinine 1.24 H Glucose 132 H Calcium 7.9 L Troponin I 0.03 Consult Discharge Plan - Plan Referrals: NO,PCP [Primary Care Provider] -
[2016-08-22] MEDS: Furosemide 40 MG/4 ML VIAL IVP SCH ×2 (10:02→17:08)
[2016-08-22] MEDS ORDERED: Insulin DETEMIR 100 UNIT/ML X5UNITS SQ ONE (10:10)
[2016-08-22] MEDS: Budesonide/Formoterol 160/4.5 MDI IH SCH ×2 (10:55→19:56)
[2016-08-22] MEDS: Ipratropium/Albuterol Neb 3 ML IH PRN ×3 (10:58→23:10)
[2016-08-22] MEDS: *HR* OxyCODONE Immed Rel 5 MG TABLET PO PRN ×2 (14:16→21:34)
[2016-08-22] MEDS ORDERED: Vancomycin 1,250 MG in D5% in Water 250 ML IVPB SCH ×2 (16:00)
--- NOTE | 2016-08-22 17:09 | Internal Med Progress Note ---
Date of Encounter: 08/22/16 Time of Encounter: 15:00 - Assessment and plan (1) Diabetes mellitus Current Visit: Yes Status: Chronic Assessment and plan: 08/22/2016: I will reduce Levemir to her home dose of 5 mg twice a day and continue to provide low-dose insulin sliding scale. 08/21/2016: Insulin sliding scale. Fingerstick blood glucose 4 times daily. Diabetic diet. Qualifiers: Diabetes mellitus type: type 2 Diabetes mellitus complication status: with kidney complications Diabetes mellitus complication detail: with chronic kidney disease Diabetes mellitus computer builder insulin use: with penitentiary use Chronic kidney disease stage: stage 3 (moderate) Qualified Code(s): E11.22 - Type 2 diabetes mellitus with diabetic chronic kidney disease; N18.3 - Chronic kidney disease, stage 3 (moderate); Z79.4 - hand i blocker (current) use of insulin (2) Noncompliance Current Visit: No Status: Chronic Assessment and plan: I suspect dietary noncompliance and possible medication noncompliance. I have reviewed her medical records from her previous admission when she received treatment with Lasix and she responded to treatment and her CHF symptoms have improved and therefore I will switch her back to Lasix. I have emphasized importance of medication compliance and will continue to correctional counselor her regarding that. (3) CHF (congestive heart failure) Current Visit: No Status: Acute Assessment and plan: 08/22/2016: We will continue with IV Lasix, and metolazone once. Monitor strict I's and O's and daily weights. 08/21/2016: Recent echocardiogram shows ejection fraction of 35%. I appreciate cardiology recommendations. Continue with diuresis. Emphasized medication and dietary compliance. I will switch her back to Lasix and add 1 dose of metolazone. Qualifiers: Congestive heart failure type: systolic Congestive heart failure chronicity : acute Qualified Code(s): I50.21 - Acute systolic (congestive) heart failure (4) Tobacco abuse Current Visit: No Status: Chronic Assessment and plan: I have encouraged her to refrain from smoking. She says that she quit smoking 2 weeks ago. (5) COPD (chronic obstructive pulmonary disease) Current Visit: Yes Status: Chronic Assessment and plan: We will use inhaled bronchodilators. Qualifiers: COPD type: unspecified COPD Qualified Code(s): J44.9 - Chronic obstructive pulmonary disease, unspecified (6) CKD (chronic kidney disease) Current Visit: Yes Status: Chronic Qualifiers: Chronic kidney disease stage: stage 3 (moderate) Qualified Code(s): N18.3 - Chronic kidney disease, stage 3 (moderate) (7) Acute and chronic respiratory failure ([id number]) Current Visit: Yes Status: Acute Assessment and plan: Supplemental oxygen by nasal cannula. Qualifiers: Respiratory failure complication: hypoxia Qualified Code(s): J96.21 - Acute and chronic respiratory failure with hypoxia (8) Hemoptysis Current Visit: Yes Status: Acute Assessment and plan: 08/22/2016: This is a new problem today. Small amount of hemoptysis noted. Possibly related to viral bronchitis. I will obtain a chest x-ray to rule out the development of pneumonia. The patient has a history of DVT for which she receives anticoagulation with Xarelto. I will hold Xarelto due to risk of massive hemoptysis and monitor patient closely. - Subjective Interval history: 08/22/2016: Patient reports moderate shortness of breath at rest, severe with minimal exertion, worse from yesterday, associated with small amount of hemoptysis which started today. Denies associated fever. 08/21/2016: Patient reports mild shortness of breath at rest, improved from yesterday. She presented to the hospital yesterday with severe shortness of breath and dyspnea on exertion associated with cough. - Constitutional Vitals: Temp Pulse Resp BP Pulse Ox 97.5 F L 66 16 145/71 98 08/22/16 16:01 08/22/16 16:01 08/22/16 16:01 08/22/16 16:01 08/22/16 16:01 General appearance: Present: mild distress (tachypneic on speaking long sentences), A&O X 3, answers questions appropriately - Eye Eye exam: Present: PERRL, conjuntiva pink, sclera anicteric Pupils: Present: PERRL - Respiratory Respiratory exam: Present: decreased breath sounds, CTAB, tachypnea. Absent: accessory muscle use, rales, rhonchi, wheezes - Cardiovascular Cardiovascular exam: Present: RRR, +S1, +S2. Absent: diastolic murmur, gallop, rubs, systolic murmur - GI/Abdominal GI/Abdominal exam: Present: normal bowel sounds, soft, no peritoneal signs. Absent: distended, tenderness - Extremities Exam Extremities exam: Present: warm, radial pulses palpable and symetrical. Absent : calf tenderness, cyanotic, pedal edema - Skin Skin exam: Present: dry, intact Internal Medicine: Result - Labs CBC & Chem 7: 08/22/16 05:18 08/22/16 05:18 Labs: Short CBC 08/22/16 Range/Units 05:18 WBC 9.4 (4.3-11.1) K/mcL Hgb 9.1 L (11.5-15.4) g/dL Hct 28.8 L (35.3-44.9) % Plt Count 362 (140-400) K/mcL Neutrophils # 6.8 (1.6-8.9) K/mcL BMP 08/22/16 05:18 Sodium 138 Potassium 4.0 Chloride 103 Carbon Dioxide 28 BUN 34 H Creatinine 1.24 H Glucose 132 H Calcium 7.9 L - Impressions Impressions Chest X-Ray 08/22/16 15:12 IMPRESSION: Persistent bilateral pleural effusions. Decreased bilateral airspace disease, likely pulmonary edema. D/ / Jolynn Mckinley Cha, MD / Jolynn Mckinley Cha, MD Interpreting Provider: Jolynn Mckinley Cha, MD Consult Discharge Plan - Plan Referrals: NO,PCP [Primary Care Provider] -
[2016-08-22] MEDS: metOLazone 5 MG TABLET PO SCH (17:49)
[2016-08-22] MEDS ORDERED: Cefepime HCl 2,000 MG in D5% in Water (Mini-Bag+) 100 ML IVPB SCH (18:00)
--- NOTE | 2016-08-22 19:51 | Electrocardiograph Report ---
[address] [address] Test Date: 2016-08-20 Pat Name: Antionette Mckeon Department: 102 Room: 2NE30 Gender: F Cardroom Supervisor: : [id number] Requested By: Brian Colby Order Number: [id number] Reading MD: Kirk Swanson MD Measurements Intervals [place] Rate: 72 P: 63 TX: 173 QRS: 96 QRSD: 107 T: 21 QT: 397 QTc: 422 Interpretive Statements SINUS RHYTHM BORDERLINE RIGHT AXIS DEVIATION Poor R wave progression Electronically Signed On 08-22-2016 19:49:42 EDT by Kirk Swanson MD
[2016-08-22] MEDS: Insulin DETEMIR 100 UNIT/ML X5UNITS SQ SCH (21:35)
[2016-08-23 04:50] LABS: Basophils # 0.1 K/mcL (0.0-0.2); Basophils % 0.8 %; Eosinophils # 0.3 K/mcL (0.0-0.6); Eosinophils % 3.6 %; Hematocrit 28.4 % (35.3-44.9); Immature Granulocytes % 0.4 % (0-4); Lymphocytes # 1.5 K/mcL (0.6-4.6); Lymphocytes % 16.6 %; Mean Corpuscular HGB Conc 31.7 g/dL (31.6-35.5); Mean Corpuscular Hemoglobin 27.2 pg (28.0-33.3); Mean Corpuscular Volume 85.8 fL (83.0-100.0); Mean Platelet Volume 9.7 fL (9.4-12.4); Monocytes # 0.7 K/mcL (0.0-1.3); Monocytes % 7.3 %; Neutrophils # 6.6 K/mcL (1.6-8.9); Platelet Count 400 K/mcL (140-400); Red Blood Count 3.31 M/mcL (3.82-4.97); Red Cell Distribution Width 16.3 % (11.5-14.5); Segmented Neutrophils % 71.3 %
[2016-08-23 04:57] LABS: Potassium 3.7 mEq/L (3.5-4.5)
[2016-08-23] MEDS: Budesonide/Formoterol 160/4.5 MDI IH SCH ×2 (08:14→21:37)
[2016-08-23] MEDS: Ipratropium/Albuterol Neb 3 ML IH PRN ×2 (08:15→21:36)
[2016-08-23] MEDS: Insulin LISPRO 300 UNITS/3 ML VIAL SQ SCH ×4 (08:45→20:15)
[2016-08-23] MEDS: Isosorbide MONOnitrate (24 HR) 60 MG TAB.ER.24H PO SCH (08:54)
[2016-08-23] MEDS: GuaiFENesin/Dextromethorphan TABLET PO SCH ×2 (08:54→20:14)
[2016-08-23] MEDS: Gabapentin 400 MG CAPSULE PO SCH ×3 (08:54→20:14)
[2016-08-23] MEDS: Metoprolol XL (24 HR) Succ 50 MG TAB.ER.24H PO SCH (08:55)
[2016-08-23] MEDS: Furosemide 40 MG/4 ML VIAL IVP SCH (08:55)
[2016-08-23] MEDS: Insulin DETEMIR 100 UNIT/ML X5UNITS SQ SCH ×2 (08:55→20:14)
[2016-08-23] MEDS: metOLazone 5 MG TABLET PO SCH (08:55)
[2016-08-23] MEDS: Nicotine 21 MG PATCH.TD24 TD SCH (08:55)
[2016-08-23] MEDS: *HR* OxyCODONE Immed Rel 5 MG TABLET PO PRN ×2 (08:55→16:54)
[2016-08-23] MEDS: Fenofibrate 54 MG TABLET PO SCH (08:56)
--- NOTE | 2016-08-23 10:24 | Cardiology Progress Note ---
Date of Encounter: 08/23/16 Time of Encounter: 10:22 Assessment and Plan (1) Acute CHF Current Visit: Yes Status: Acute Acute on chronic systolic CHF. likely exacerbated after not taking Lasix for 2 days. She also describes a high salt diet. She eats a lot of canned foods. Repeat hospital admissions over the last 6 months for CHF. Suspect noncompliance. BNP 3185. CXR shows recurrent moderate bilaterla pleural effusions and acute interstitial opacities. TTE 08/09/2016 showed an EF of 35-40%. There was a large pleural effusion. This was a limited study. TTE 06/18/2016EF 40% with global systolic reduction and variations and wall motion abnormality as seen on prior echocardiogram. Mild to moderate mitral regurgitation, mild tricuspid regurgitation, mild pulmonic regurgitation. There is no pulmonary hypertension. Trivial pericardial effusion. IV lasix restarted yesterday. She is responding well. -2980 for 24 hours and net negative 3251 ml for stay. Suspect she will need 24 more hours of IV diuresis. Kidney function is stale. Strict I&O and daily weight. CHF education reviewed again. Compliance with medications discussed. Patient stated she was on antiemetic in the past and feels like she may need one again to help her keep her pills down. Reported N/v for two days prior to admission and was unable to take medications. Describes chronic issues with N/V in the setting of diabetes. Will defer to primary team. Cardiology will sign off. Continue 80 mg BID lasix at discharge. 1 week f/u will be scheduled with [facility]. Please call with questions. Qualifiers: Congestive heart failure type: combined Qualified Code(s): I50.41 - Acute combined systolic (congestive) and diastolic (congestive) heart failure (2) Acute and chronic respiratory failure ([id number]-robuhry) Current Visit: Yes Status: Acute Acute on chronic respiratory failure. Exacerbated by acute on chronic CHF and recurrent pleural effusions. Also known COPD. C/o increasing thick brownish sputum production. Noncompliance with medications and low-salt diet is suspected. Responding well to IV lasix. Qualifiers: Respiratory failure complication: hypoxia Qualified Code(s): J96.21 - Acute and chronic respiratory failure with hypoxia (3) CAD (coronary artery disease) Current Visit: Yes Status: Chronic S/p multiple PCI. Last C in 2013. LHC revealed severe two vessel coronary artery disease. EF 40%. Patient had successful PTCA/Drug-Eluting Stent placement in the proximal and distal Circ ISR. Long occluded RCA -instent - from ostium to PDA with left to right collaterals 20% stenosis in the Proximal LAD. The lesion has no thrombus present. Continue aspirin, statin, and beta acrlos. Qualifiers: Coronary Disease-Associated Artery/Lesion type: nondalton artery [place] vs. transplanted heart: nondalton heart Associated angina: without angina Qualified Code(s): I25.10 - Atherosclerotic heart disease of nondalton coronary artery without angina pectoris Discussion w patient/family: The assessment and plan as outlined above was discussed with the patient and/or family members who expressed understanding and agreement. All questions were answered. Thank you for involving us in the care of your patient. Please call with any questions. Subjective Principal diagnosis: CHF: exacerbation acute on chronic systolic CHF Interval history: Reports slight improvement in breathing. Continues to have orthopnea. BLE edema improved. Objective Vital Signs, Last 4 Hours Temp Pulse Resp BP Pulse Ox 08/23/16 08:18 16 89 08/23/16 07:35 98 F 76 16 138/59 92 08/23/16 07:00 97.9 F 74 18 138/59 90 General: Conversant, No Apparent Distress HEENT: Atraumatic, Normocephaly, Mucus Membranes Moist Neck: No JVD, Normal carotid pulses Cardiac: Reg Rate and Rhythm, Normal S1 and S2, No Murmur Lungs: Other (rhonci scattered throughout.) Neuro: Alert and responsive, No focal deficits noted Abdomen: Soft, Non-Tender Skin: No rashes noted on visualized skin Musculoskeletal: No Chest Wall Tenderness Extremities: No Clubbing, No Cyanosis, Normal Pulses, Other (1+ BLE edema with wrinkling d/y improvement in edema. ) Results 08/23/16 03:53 08/23/16 03:53 Lab Results 08/23/16 08/23/16 03:53 03:53 WBC 9.2 Hgb 9.0 L Hct 28.4 L Plt Count 400 Sodium 140 Potassium 3.7 Chloride 103 Carbon Dioxide 28 BUN 37 H Creatinine 1.26 H Glucose 171 H Calcium 8.0 L Consult Discharge Plan - Plan Referrals: NO,PCP [Primary Care Provider] -
--- NOTE | 2016-08-23 14:55 | Internal Med Progress Note ---
Date of Encounter: 08/23/16 Time of Encounter: 14:53 - Assessment and plan (1) Diabetes mellitus Current Visit: Yes Status: Chronic Assessment and plan: 08/22/2016: I will reduce Levemir to her home dose of 5 mg twice a day and continue to provide low-dose insulin sliding scale. 08/21/2016: Insulin sliding scale. Fingerstick blood glucose 4 times daily. Diabetic diet. Qualifiers: Diabetes mellitus type: type 2 Diabetes mellitus complication status: with kidney complications Diabetes mellitus complication detail: with chronic kidney disease Diabetes mellitus long term care social worker insulin use: with group home use Chronic kidney disease stage: stage 3 (moderate) Qualified Code(s): E11.22 - Type 2 diabetes mellitus with diabetic chronic kidney disease; N18.3 - Chronic kidney disease, stage 3 (moderate); Z79.4 - intermediate designer (current) use of insulin (2) Noncompliance Current Visit: No Status: Chronic Assessment and plan: I suspect dietary noncompliance and possible medication noncompliance. I have reviewed her medical records from her previous admission when she received treatment with Lasix and she responded to treatment and her CHF symptoms have improved and therefore I will switch her back to Lasix. I have emphasized importance of medication compliance and will continue to business and financial counsel her regarding that. (3) CHF (congestive heart failure) Current Visit: No Status: Acute Assessment and plan: 08/23/2016: She is showing a modest response to high dose of IV Lasix. I am concerned of her failed treatment with oral Lasix at home. therefore I will switch her to intravenous Bumex 2 mg every 12 hours. Continue with metolazone. Monitor strict I's and O's and daily weights. so far she appears to be -3 L. 08/21/2016: Recent echocardiogram shows ejection fraction of 35%. I appreciate cardiology recommendations. Continue with diuresis. Emphasized medication and dietary compliance. I will switch her back to Lasix and add 1 dose of metolazone. Qualifiers: Congestive heart failure type: systolic Congestive heart failure chronicity : acute Qualified Code(s): I50.21 - Acute systolic (congestive) heart failure (4) Tobacco abuse Current Visit: No Status: Chronic Assessment and plan: I have encouraged her to refrain from smoking. She says that she quit smoking 2 weeks ago. (5) COPD (chronic obstructive pulmonary disease) Current Visit: Yes Status: Chronic Assessment and plan: We will use inhaled bronchodilators. Qualifiers: COPD type: unspecified COPD Qualified Code(s): J44.9 - Chronic obstructive pulmonary disease, unspecified (6) CKD (chronic kidney disease) Current Visit: Yes Status: Chronic Assessment and plan: Monitor BUN and creatinine. Avoid nephrotoxins. Qualifiers: Chronic kidney disease stage: stage 3 (moderate) Qualified Code(s): N18.3 - Chronic kidney disease, stage 3 (moderate) (7) Acute and chronic respiratory failure ([id number]) Current Visit: Yes Status: Acute Assessment and plan: Supplemental oxygen by nasal cannula. Qualifiers: Respiratory failure complication: hypoxia Qualified Code(s): J96.21 - Acute and chronic respiratory failure with hypoxia (8) Hemoptysis Current Visit: Yes Status: Acute Assessment and plan: 08/23/2016: Chest x-ray was reviewed by myself shows no evidence of pneumonia, findings of CHF have improved. Patient does not report any further hemoptysis. We will continue to monitor. H&H is stable. 08/22/2016: This is a new problem today. Small amount of hemoptysis noted. Possibly related to viral bronchitis. I will obtain a chest x-ray to rule out the development of pneumonia. The patient has a history of DVT for which she receives anticoagulation with Xarelto. I will hold Xarelto due to risk of massive hemoptysis and monitor patient closely. - Subjective Interval history: 08/23/2016: Patient reports mild to moderate shortness of breath at rest which has improved from yesterday. She still says that she only passed urine once today. 08/22/2016: Patient reports moderate shortness of breath at rest, severe with minimal exertion, worse from yesterday, associated with small amount of hemoptysis which started today. Denies associated fever. 08/21/2016: Patient reports mild shortness of breath at rest, improved from yesterday. She presented to the hospital yesterday with severe shortness of breath and dyspnea on exertion associated with cough. - Constitutional Vitals: Temp Pulse Resp BP Pulse Ox 98 F 76 16 138/59 89 08/23/16 07:35 08/23/16 07:35 08/23/16 08:18 08/23/16 07:35 08/23/16 08:18 General appearance: Present: mild distress (tachypneic on speaking long sentences), A&O X 3, answers questions appropriately - Eye Eye exam: Present: PERRL, conjuntiva pink, sclera anicteric Pupils: Present: PERRL - Respiratory Respiratory exam: Present: CTAB. Absent: accessory muscle use, rales, rhonchi, wheezes - Cardiovascular Cardiovascular exam: Present: RRR, +S1, +S2. Absent: diastolic murmur, gallop, rubs, systolic murmur - GI/Abdominal GI/Abdominal exam: Present: normal bowel sounds, soft, no peritoneal signs. Absent: distended, tenderness - Extremities Exam Extremities exam: Present: pedal edema, warm, radial pulses palpable and symetrical. Absent: calf tenderness, cyanotic - Skin Skin exam: Present: dry, intact Internal Medicine: Result - Labs CBC & Chem 7: 08/23/16 03:53 08/23/16 03:53 Labs: Short CBC 08/23/16 Range/Units 03:53 WBC 9.2 (4.3-11.1) K/mcL Hgb 9.0 L (11.5-15.4) g/dL Hct 28.4 L (35.3-44.9) % Plt Count 400 (140-400) K/mcL Neutrophils # 6.6 (1.6-8.9) K/mcL BMP 08/23/16 03:53 Sodium 140 Potassium 3.7 Chloride 103 Carbon Dioxide 28 BUN 37 H Creatinine 1.26 H Glucose 171 H Calcium 8.0 L - Impressions Impressions Chest X-Ray 08/22/16 15:12 IMPRESSION: Persistent bilateral pleural effusions. Decreased bilateral airspace disease, likely pulmonary edema. D/ / Jolynn Mckinley Cha, MD / Jolynn Mckinley Cha, MD Interpreting Provider: Jolynn Mckinley Cha, MD Consult Discharge Plan - Plan Referrals: NO,PCP [Primary Care Provider] -
[2016-08-23] MEDS: Bumetanide 1 MG/4 ML VIAL IVP SCH (16:53)
[2016-08-23] MEDS: ALPRAZolam 0.5 MG TABLET PO PRN (20:14)
[2016-08-24 05:26] LABS: Basophils # 0.1 K/mcL (0.0-0.2); Basophils % 1.1 %; Eosinophils # 0.4 K/mcL (0.0-0.6); Eosinophils % 4.8 %; Hematocrit 28.4 % (35.3-44.9); Hemoglobin 8.8 g/dL (11.5-15.4); Immature Granulocytes % 0.3 % (0-4); Lymphocytes # 1.7 K/mcL (0.6-4.6); Lymphocytes % 23.6 %; Mean Corpuscular Hemoglobin 26.6 pg (28.0-33.3); Mean Corpuscular Volume 85.8 fL (83.0-100.0); Mean Platelet Volume 9.6 fL (9.4-12.4); Monocytes # 0.6 K/mcL (0.0-1.3); Monocytes % 8.4 %; Neutrophils # 4.6 K/mcL (1.6-8.9); Platelet Count 437 K/mcL (140-400); Red Blood Count 3.31 M/mcL (3.82-4.97); Red Cell Distribution Width 16.3 % (11.5-14.5); Segmented Neutrophils % 61.8 %
[2016-08-24 05:45] LABS: BUN/Creatinine Ratio 37 (6-26); Blood Urea Nitrogen 43 mg/dL (7-20); Calcium 8.1 mg/dL (8.6-10.8); Carbon Dioxide 28 mEq/L (19-29); Chloride 103 mEq/L (98-109); Glucose 113 mg/dL (70-99); Osmolality,Calculated 300 (280-300); Sodium 139 mEq/L (136-145); eGFR For African Americans > 60 (> 60); eGFR For Non-African Americans 50 (> 60)
[2016-08-24] MEDS: *HR* OxyCODONE Immed Rel 5 MG TABLET PO PRN ×2 (06:00→20:59)
[2016-08-24] MEDS: Bumetanide 1 MG/4 ML VIAL IVP SCH ×2 (08:26→17:08)
[2016-08-24] MEDS: GuaiFENesin/Dextromethorphan TABLET PO SCH ×2 (08:27→20:55)
[2016-08-24] MEDS: Fenofibrate 54 MG TABLET PO SCH (08:27)
[2016-08-24] MEDS: Metoprolol XL (24 HR) Succ 50 MG TAB.ER.24H PO SCH (08:27)
[2016-08-24] MEDS: Nicotine 21 MG PATCH.TD24 TD SCH (08:27)
[2016-08-24] MEDS: Isosorbide MONOnitrate (24 HR) 60 MG TAB.ER.24H PO SCH (08:28)
[2016-08-24] MEDS: Gabapentin 400 MG CAPSULE PO SCH ×3 (08:28→20:55)
[2016-08-24] MEDS: metOLazone 5 MG TABLET PO SCH (08:28)
[2016-08-24] MEDS: Insulin DETEMIR 100 UNIT/ML X5UNITS SQ SCH ×2 (08:30→20:55)
[2016-08-24] MEDS: Insulin LISPRO 300 UNITS/3 ML VIAL SQ SCH ×4 (08:31→20:55)
[2016-08-24] MEDS: Budesonide/Formoterol 160/4.5 MDI IH SCH ×2 (10:46→20:17)
[2016-08-24] MEDS: Ipratropium/Albuterol Neb 3 ML IH PRN ×2 (10:50→20:18)
--- NOTE | 2016-08-24 16:01 | Discharge Summary ---
Addendum entered and electronically signed by Shivam Goetz DO 11:28: Discussed with patient the need for hospital bed as patient requires the head of the bed to be elevated more than 30 degrees most of the time due to CHF and COPD. Original Note: <Shivam Goetz - Last Filed: 08/24/16 20:56> Date of Encounter: 08/24/16 Time of Encounter: 09:10 - Discharge Diagnosis (1) Acute and chronic respiratory failure ([id number]) Priority: Primary Status: Acute Comments: Continued episodes of coughing, no sputum production. Continue duonebs prn. Qualifiers: Respiratory failure complication: hypoxia Qualified Code(s): J96.21 - Acute and chronic respiratory failure with hypoxia (2) CHF (congestive heart failure) Priority: Secondary Status: Acute Comments: Limit sodium and fluid intake. Continue lasix. Follow up with outpatient cardiology clinic in one week. Patient requires the head of the bed to be elevated more than 30 degrees most of the time due to CHF and COPD. Qualifiers: Congestive heart failure type: systolic Congestive heart failure chronicity : acute Qualified Code(s): I50.21 - Acute systolic (congestive) heart failure (3) CKD (chronic kidney disease) Priority: Secondary Status: Chronic Qualifiers: Chronic kidney disease stage: stage 3 (moderate) Qualified Code(s): N18.3 - Chronic kidney disease, stage 3 (moderate) (4) COPD (chronic obstructive pulmonary disease) Priority: Secondary Status: Chronic Qualifiers: COPD type: unspecified COPD Qualified Code(s): J44.9 - Chronic obstructive pulmonary disease, unspecified (5) Noncompliance Priority: Secondary Status: Chronic (6) Tobacco abuse Priority: Secondary Status: Chronic - Discharge Medications Prescriptions: Ipratropium/Albuterol Neb [Duoneb] 3 ml IH [id number] PRN #50 inhsol PRN Reason: Shortness Of Breath/Wheezing GuaiFENesin/Dextromethorphan [Mucinex Dm] 1 each PO BID #10 tab.er.12h Home Medications: Albuterol Sulfate [Proair Hfa] 2 puff IH Q4H PRN 06/18/16 [History] Atorvastatin [Lipitor] 40 mg PO HS 06/18/16 [History] Clopidogrel [Plavix] 75 mg PO DAILY 06/18/16 [History] Fenofibrate [Lofibra] 160 mg PO DAILY 06/18/16 [History] Gabapentin [Neurontin] 400 mg PO TID 06/18/16 [History] Isosorbide MONOnitrate (24 HR) [Imdur] 60 mg PO DAILY 06/18/16 [History] Lisinopril 2.5 mg PO DAILY 06/18/16 [History] Metoprolol XL (24 HR) Succ [Toprol Xl] 50 mg PO DAILY 06/18/16 [History] Potassium Chloride [Klor-Con Sprinkle] 10 meq PO BID 06/18/16 [History] ALPRAZolam [Xanax 0.5 MG Tablet] 0.5 mg PO HS PRN #30 tablet 08/14/16 [Rx] Furosemide [Lasix] 80 mg PO BID 30 Days 08/14/16 [Rx] Loperamide [Imodium] 2 mg PO Q6HR #10 capsule 08/14/16 [Rx] Budesonide/Formoterol 160/4.5 [Symbicort 160/4.5] 2 puff IH BID 08/20/16 [ History] Insulin DETEMIR [Levemir Flextouch] 20 unit SQ HS 08/20/16 [History] Nitroglycerin [Nitrostat] 0.4 mg SL Q5M PRN 08/20/16 [History] Rivaroxaban [Xarelto] 15 mg PO BID 08/20/16 [History] GuaiFENesin/Dextromethorphan [Mucinex Dm] 1 each PO BID #10 tab.er.12h 08/24/16 [Rx] Ipratropium/Albuterol Neb [Duoneb] 3 ml IH [id number] PRN #50 inhsol 08/24/16 [Rx] Allergies/Adverse Reactions: Allergies Onion Allergy (Intermediate, Verified 08/05/16 09:37) Swelling of Lip/Tongue/Throat ciprofloxacin [From Cipro] Allergy (Verified 08/04/16 19:26) Hives codeine Allergy (Verified 08/04/16 19:26) Hives insulin glargine [From Lantus] Allergy (Verified 08/04/16 19:26) Hives aspirin Adverse Reaction (Verified 08/04/16 22:12) Nausea Date of admission: 08/20/16 20:25 Primary care physician: PCP NO Consults: 08/20/16 21:25 Consult to Fashion Coordinator [CONS] Routine Reason for SW Consult: discharge planning Discharging clinician: Eduardo Clemente Anticipated date of discharge: 08/24/16 - Patient Status Disposition: Home Health Service Condition: Fair Functional capacity at discharge: uses cane/walker Overall status at discharge: patient is progressing back to baseline - Discharge Instructions Instructions: Guaifenesin (By mouth), Ipratropium/Albuterol (By breathing), Heart Failure (DC), Acute Respiratory Distress Syndrome (DC), Urinary Tract Infection in Women (DC), Diabetes Mellitus Type 2 in Adults (DC), Peripheral Vascular Disorders (DC), Chronic Obstructive Pulmonary Disease (DC), Chronic Hypertension (DC), Cigarette 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 Limit salt and fluid intake; limit of 1.2 Liters of fluid daily. Follow up with Primary Care Physician in 5-7 days or sooner if needed. - Diet and Activity Activity: as per physical therapy, increase activity as tolerated Diet: low salt diet (fluid restriction of 1.2L daily) Interval History: Patient seen and examined sitting in chair. She states she has a continued cough that improves with duoneb treatment, she is concerned about going home as her nebulizer is broken. She also notes that she doesn't have a walker here to help her get around. Hospital course: Ms. Mckeon is a 46 year old female, PMHx systolic CHF, diabetic nephropathy, DM , COPD, that presents with 2-3 days of dyspnea. Patient recently discharged from our hospital less than a week ago after being treated for anasarca, worsening renal failure, underwent thoracentesis, and was sent home on Lasix 80mg twice daily. She noted for the 2-3 days prior to return, she has been having progressive dyspnea associated with orthopnea, decreased UOP, and chest tightness. Dyspnea constant and at rest with associated cough. Her chest pain improved with Nitroglycerine paste that she received in the ER. Ms. Mckeon was restarted on lasix with the addition of metolazone, resulting in improvement of breathing. Small amount of hemoptysis noted, xarelto held for 1 day; no further episodes noted though patient continued to have dry cough. She stated this improved with duoneb treatments. TTE 06/18/2016EF 40% with global systolic reduction and variations and wall motion abnormality as seen on prior echocardiogram. Mild to moderate mitral regurgitation, mild tricuspid regurgitation, mild pulmonic regurgitation. There is no pulmonary hypertension. Trivial pericardial effusion. TTE 08/09/2016 showed an EF of 35-40%. There was a large pleural effusion. This was a limited study. Cardiology consulted, noted likely noncompliance, recommended lasix with outpatient follow up in 1 week. - Time Spent with Patient Total time spent providing and/or coordinating discharge services: Less than 30 minutes - Constitutional Vitals: Temp Pulse Resp BP Pulse Ox 98 F 70 16 120/51 98 08/24/16 15:36 08/24/16 15:36 08/24/16 15:36 08/24/16 15:36 08/24/16 15:36 General appearance: Present: cooperative, A&O X 3, pleasant, no acute distress, answers questions appropriately - Head Head exam: Present: atraumatic, normocephalic - Eye Eye exam: Present: EOMI, conjuntiva pink - ENT ENT exam: Present: mucous membranes dry - Neck Neck exam general surgery: Present: full ROM - Respiratory Respiratory exam: Present: CTAB - Cardiovascular Cardiovascular exam: Present: RRR - GI/Abdominal GI/Abdominal exam: Present: soft. Absent: firm, guarding, tenderness - Extremities Exam Extremities exam: Present: pedal edema (trace-1+BLE edema), warm. Absent: tenderness - Neurological Exam Neurological exam: Present: alert, oriented X3, no focal deficits - Psychiatric Psychiatric exam: Present: anxious - Skin Skin exam: Present: dry, warm <Eduardo Clemente P - Last Filed: 08/25/16 19:07> Date of Encounter: 08/25/16 Date of admission: 08/20/16 20:25 Primary care physician: PCP NO Consults: 08/20/16 21:25 Consult to Fashion Coordinator [CONS] Routine Reason for SW Consult: discharge planning Hospital course: Ms. Mckeon is a 46 year old female - Time Spent with Patient Total time spent providing and/or coordinating discharge services: - Constitutional Vitals: Temp Pulse Resp BP Pulse Ox 98 F 70 16 120/51 98 08/24/16 15:36 08/24/16 15:36 08/24/16 15:36 08/24/16 15:36 08/24/16 15:36 - Attending Attestation I examined this patient and my medical decision-making was reviewed with the STENO POOL SUPERVISOR/PA/Advanced Practice Nurse/Resident Physician. I agree with the documented findings, disposition and treatment plan as described except to the extent set forth below.
--- NOTE | 2016-08-24 16:28 | Physician Discharge Referral ---
<Shivam Goetz - Last Filed: 08/24/16 16:26> Home Health/Hosp Referral Info Transfer to: Home Health Provider in Charge Post Discharge: PCP - Diagnosis (1) Acute and chronic respiratory failure ([id number]) Priority: Primary Status: Acute (2) CHF (congestive heart failure) Priority: Secondary Status: Acute (3) CKD (chronic kidney disease) Priority: Secondary Status: Chronic (4) COPD (chronic obstructive pulmonary disease) Priority: Secondary Status: Chronic (5) Noncompliance Priority: Secondary Status: Chronic (6) Tobacco abuse Priority: Secondary Status: Chronic - Respiratory Orders Oxygen / L per min (3LPM of O2) Smoking Cessation: Smoking cessation has been advised. For more information, call the [place] Tobacco Quit Line at 8-775-IYIK-NOW. - Diet/Nutrition Diet/Nutrition Orders: Cardiac - Activity Activity Orders: Walker - Services Needed Following services are medically necessary services: Nursing, Home Health Aide, Physical Therapy, Occupational Therapy - Transfer Medications Prescriptions: Ipratropium/Albuterol Neb [Duoneb] 3 ml IH [id number] PRN #50 inhsol PRN Reason: Shortness Of Breath/Wheezing GuaiFENesin/Dextromethorphan [Mucinex Dm] 1 each PO BID #10 tab.er.12h Home Medications: Albuterol Sulfate [Proair Hfa] 2 puff IH Q4H PRN 06/18/16 [History] Atorvastatin [Lipitor] 40 mg PO HS 06/18/16 [History] Clopidogrel [Plavix] 75 mg PO DAILY 06/18/16 [History] Fenofibrate [Lofibra] 160 mg PO DAILY 06/18/16 [History] Gabapentin [Neurontin] 400 mg PO TID 06/18/16 [History] Isosorbide MONOnitrate (24 HR) [Imdur] 60 mg PO DAILY 06/18/16 [History] Lisinopril 2.5 mg PO DAILY 06/18/16 [History] Metoprolol XL (24 HR) Succ [Toprol Xl] 50 mg PO DAILY 06/18/16 [History] Potassium Chloride [Klor-Con Sprinkle] 10 meq PO BID 06/18/16 [History] ALPRAZolam [Xanax 0.5 MG Tablet] 0.5 mg PO HS PRN #30 tablet 08/14/16 [Rx] Furosemide [Lasix] 80 mg PO BID 30 Days 08/14/16 [Rx] Loperamide [Imodium] 2 mg PO Q6HR #10 capsule 08/14/16 [Rx] Budesonide/Formoterol 160/4.5 [Symbicort 160/4.5] 2 puff IH BID 08/20/16 [ History] Insulin DETEMIR [Levemir Flextouch] 20 unit SQ HS 08/20/16 [History] Nitroglycerin [Nitrostat] 0.4 mg SL Q5M PRN 08/20/16 [History] Rivaroxaban [Xarelto] 15 mg PO BID 08/20/16 [History] GuaiFENesin/Dextromethorphan [Mucinex Dm] 1 each PO BID #10 tab.er.12h 08/24/16 [Rx] Ipratropium/Albuterol Neb [Duoneb] 3 ml IH [id number] PRN #50 inhsol 08/24/16 [Rx] Allergies/Adverse Reactions: Allergies Onion Allergy (Intermediate, Verified 08/05/16 09:37) Swelling of Lip/Tongue/Throat ciprofloxacin [From Cipro] Allergy (Verified 08/04/16 19:26) Hives codeine Allergy (Verified 08/04/16 19:26) Hives insulin glargine [From Lantus] Allergy (Verified 08/04/16 19:26) Hives aspirin Adverse Reaction (Verified 08/04/16 22:12) Nausea Certification: Further, I certify that my clinical findings support that this patient is homebound (i.e. absences from home require considerable and taxing effort and are for medical reasons or moravian services or infrequently or short duration when for other reasons) because: Homebound Reason: Patient requires assistance of a person or device to safely leave home, Leaving home requires considerable and taxing effort due to condition, Severity of cardiac or pulmonary status limits activity tolerance Attestation: My signature below is to certify that this patient is under my care and that I, or nurse practitioner, or a physician's railway yard assistant working with me, has a face-to -face encounter with this patient. <Eduardo Clemente P - Last Filed: 08/24/16 18:23> - Respiratory Orders Smoking Cessation: Smoking cessation has been advised. For more information, call the [place] Tobacco Quit Line at 6-162-XOLA-NOW. Certification: Further, I certify that my clinical findings support that this patient is homebound (i.e. absences from home require considerable and taxing effort and are for medical reasons or moravian services or infrequently or short duration when for other reasons) because: Attestation: My signature below is to certify that this patient is under my care and that I, or nurse practitioner, or a physician's railway yard assistant working with me, has a face-to -face encounter with this patient.
[2016-08-24] MEDS: ALPRAZolam 0.5 MG TABLET PO PRN (22:27)
[2016-08-25 07:06] VITALS: BP 135/59
[2016-08-25] MEDS: Insulin LISPRO 300 UNITS/3 ML VIAL SQ SCH (09:01)
[2016-08-25] MEDS: metOLazone 5 MG TABLET PO SCH (09:26)
[2016-08-25] MEDS: GuaiFENesin/Dextromethorphan TABLET PO SCH (09:26)
[2016-08-25] MEDS: Fenofibrate 54 MG TABLET PO SCH (09:26)
[2016-08-25] MEDS: Isosorbide MONOnitrate (24 HR) 60 MG TAB.ER.24H PO SCH (09:26)
--- NOTE | 2016-08-25 09:26 | Event Note ---
<BishnuShivamngoc Pattersone - Last Filed: 08/25/16 11:29> Date of Encounter: 08/25/16 Time of Encounter: 10:00 Patient discharged yesterday, however, didn't feel well with BG change from 300 to 51. BG lorenza to 66 with snacks/juice. Oxygenation stable on 2L via nasal cannula. BG at 160 approx 1 hour later. No issues or episodes overnight. Patient notes history of hypoglycemia for which she does not use short-acting insulin at home. BG this AM was 202 and vitals stable with supplemental oxygen. Patient has home health, recommending aid/PT/OT/nursing. Patient also needing new nebulizer and hospital bed due to COPD and CHF as noted in discharge summary. Patient states breathing "okay" today, close to baseline. <Eduardo Clemente - Last Filed: 08/25/16 19:07> Date of Encounter: 08/25/16 I examined this patient and my medical decision-making was reviewed with the REAL ESTATE MANAGER/PA/Advanced Practice Nurse/Resident Physician. I agree with the documented findings, disposition and treatment plan as described except to the extent set forth below.
[2016-08-25] MEDS: Gabapentin 400 MG CAPSULE PO SCH (09:27)
[2016-08-25] MEDS: Nicotine 21 MG PATCH.TD24 TD SCH (09:27)
[2016-08-25] MEDS: Bumetanide 1 MG/4 ML VIAL IVP SCH (09:28)
[2016-08-25] MEDS: Insulin DETEMIR 100 UNIT/ML X5UNITS SQ SCH (09:28)
[2016-08-25] MEDS: Metoprolol XL (24 HR) Succ 50 MG TAB.ER.24H PO SCH (09:28)
[2016-08-25] MEDS: Budesonide/Formoterol 160/4.5 MDI IH SCH (09:59)
== END 2016-08-25 13:26 | disposition home health service (06) | DRG 194 ==
LOC: EMEROO 14:24 → 2NENU 14:24 → SUATTDRO 20:25 → 2NENU 20:40
PROVIDERS: ADMIT Internal Medicine; ATTEND Internal Medicine

== ENCOUNTER 2016-09-15 13:11 | Inpatient (IN) ==
[2016-09-15] MEDS ORDERED: Ipratropium/Albuterol Neb 3 ML IH ONE (13:16)
[2016-09-15] MEDS ORDERED: methylPREDNISolone 125 MG/2 ML VIAL IVP ONE (13:21)
--- NOTE | 2016-09-15 13:22 | Emergency Department Note ---
Disposition Clinical Impression: COPD exacerbation CHF exacerbation Qualifiers: Congestive heart failure type: unspecified congestive heart failure type Qualified Code(s): I50.9 - Heart failure, unspecified Disposition: Admitted As Inpatient Condition: Good Referrals: NO,PCP [Primary Care Provider] - Forms: ED Satisfaction Letter SOB HPI - General Chief Complaint: ED Shortness of Breath/Dyspnea Stated Complaint: MEKA Time Seen by Provider: 09/15/16 13:15 Source: patient, EMS Limitations: no limitations Nursing Notes Reviewed: Yes Vital Signs Reviewed: Yes - History of Present Illness Patient with previous history of multiple strokes as well as COPD and coronary artery disease CHF presents for evaluation of shortness of breath. She states it has been going on for approximately 2 days. Patient states associated with cough is nonproductive in nature. No fevers or chills. Patient states she just does not feel good. Vision has had a stroke and has limited use of her legs to begin with. On 2 L of nasal cannula at home. Patient has recently increased the amount of home oxygen. - Related Data Home Medications Medication Instructions Recorded Confirmed Albuterol Sulfate [Proair Hfa] 2 puff IH Q4H PRN 06/18/16 08/20/16 Atorvastatin [Lipitor] 40 mg PO HS 06/18/16 08/20/16 Clopidogrel [Plavix] 75 mg PO DAILY 06/18/16 08/20/16 Fenofibrate [Lofibra] 160 mg PO DAILY 06/18/16 08/20/16 Gabapentin [Neurontin] 400 mg PO TID 06/18/16 08/20/16 Isosorbide MONOnitrate (24 HR) 60 mg PO DAILY 06/18/16 08/20/16 [Imdur] Lisinopril 2.5 mg PO DAILY 06/18/16 08/20/16 Metoprolol XL (24 HR) Succ [Toprol 50 mg PO DAILY 06/18/16 08/20/16 Xl] Potassium Chloride [Klor-Con 10 meq PO BID 06/18/16 08/20/16 Sprinkle] Budesonide/Formoterol 160/4.5 2 puff IH BID 08/20/16 08/20/16 [Symbicort 160/4.5] Insulin DETEMIR [Levemir Flextouch] 20 unit SQ HS 08/20/16 08/20/16 Nitroglycerin [Nitrostat] 0.4 mg SL Q5M PRN 08/20/16 08/20/16 Rivaroxaban [Xarelto] 15 mg PO BID 08/20/16 08/20/16 Previous Rx's Medication Instructions Recorded ALPRAZolam [Xanax 0.5 MG Tablet] 0.5 mg PO HS PRN #30 tablet 08/14/16 Furosemide [Lasix] 80 mg PO BID 30 Days 08/14/16 Ipratropium/Albuterol Neb [Duoneb] 3 ml IH [id number] PRN #50 inhsol 08/24/16 Allergies Allergy/AdvReac Type Severity Reaction Status Date / Time Onion Allergy Intermediate Swelling Verified 08/05/16 09:37 of Lip/Tongue/Throat ciprofloxacin [From Cipro] Allergy Hives Verified 08/04/16 19:26 codeine Allergy Hives Verified 08/04/16 19:26 insulin glargine Allergy Hives Verified 08/04/16 19:26 [From Lantus] aspirin AdvReac Nausea Verified 08/04/16 22:12 Review of Systems: CONSTITUTIONAL: No weight loss, fever, chills, weakness or fatigue. HEENT: Eyes: No visual changes. Ears, Nose, Throat: No hearing loss, difficulty talking or unable to swallow. SKIN: No rash or itching. CARDIOVASCULAR: No chest pain, chest pressure or chest discomfort. No palpitations or edema. RESPIRATORY: Shortness of breath and cough GASTROINTESTINAL: No anorexia, nausea, vomiting or diarrhea. No abdominal pain or blood. GENITOURINARY: No burning on urination or hematuria. NEUROLOGICAL: No headache, dizziness, syncope, paralysis, ataxia, numbness or tingling in the extremities. No change in bowel or bladder control. MUSCULOSKELETAL: No muscle pain, back pain, joint pain or stiffness. Past Medical History - Past Medical History Medical history: Reports: cardiomyopathy, cirrhosis, CHF, COPD, coronary artery disease, CVA, DVT, diabetes, peripheral artery disease, renal disease, TIA, other Surgical history: Reports: appendectomy, cholecystectomy, hysterectomy, orthopedic, other, other Psychiatric history: Reports: anxiety, depression STUNNER ANIMAL history: Reports: non-contributory - Social History Smoking Status: Former smoker Smokeless Tobacco Status: No Alcohol use: Reports: none Drug use: Reports: none Physical Exam General appearance: Increased work of breathing, conversant Eyes: anicteric sclerae, moist conjunctivae; PERRL HENT: Atraumatic; oropharynx clear with moist mucous membranes and no mucosal ulcerations Neck: Normal inspection; Trachea midline; FROM, supple Lungs: Diffuse rales and rhonchi CV: RRR, no MRGs Abdomen: Soft, non-tender; no rebound or gaurding Extremities: No peripheral edema or extremity lymphadenopathy Skin: Normal temperature; no rash, ulcers or lesions Psych: Appropriate mood and affect Neuro: alert and oriented to person, place and time - General Limitations: no limitations General appearance: alert, in no apparent distress Course - Reevaluation(s) Reevaluation #1: Patient significantly improved after DuoNeb's. Patient has not highly elevated BNP. Slightly increased creatinine. Concern for CHF exacerbation as well as COPD exacerbation. Patient will need admission for further delineation and management. - Consultations Consultation #1: Ariel accepts. Time: 15:07 Vital Signs Temperature 97.7 F 09/15/16 13:13 Pulse Rate 76 09/15/16 13:13 Respiratory Rate 18 09/15/16 13:13 Blood Pressure 140/74 09/15/16 13:13 O2 Sat by Pulse Oximetry 95 09/15/16 13:13 Temperature 97.7 F 09/15/16 13:13 Pulse Rate 73 09/15/16 13:30 Respiratory Rate 18 09/15/16 13:30 Blood Pressure 137/74 09/15/16 13:30 O2 Sat by Pulse Oximetry 97 09/15/16 13:30 Oxygen Delivery Oxygen Delivery Nasal Cannula Shortness of Breath/Dyspnea - Lab Data Result diagrams: 09/15/16 13:38 09/15/16 13:38 Lab Results 09/15/16 09/15/16 09/15/16 Range/Units 13:38 13:38 13:38 WBC 6.9 (4.3-11.1) K/mcL RBC 3.57 L (3.82-4.97) M/mcL Hgb 9.7 L (11.5-15.4) g/dL Hct 31.2 L (35.3-44.9) % MCV 87.4 (83.0-100.0) fL MCH 27.2 L (28.0-33.3) pg MCHC 31.1 L (31.6-35.5) g/dL RDW 16.8 H (11.5-14.5) % Plt Count 338 (140-400) K/mcL MPV 9.3 L (9.4-12.4) fL Immature Gran % 0.4 (0-4) % Seg Neutrophils % 75.4 % Lymphocytes % 16.2 % Monocytes % 4.8 % Eosinophils % 2.3 % Basophils % 0.9 % Neutrophils # 5.2 (1.6-8.9) K/mcL Lymphocytes # 1.1 (0.6-4.6) K/mcL Monocytes # 0.3 (0.0-1.3) K/mcL Eosinophils # 0.2 (0.0-0.6) K/mcL Basophils # 0.1 (0.0-0.2) K/mcL Sodium 138 (136-145) mEq/L Potassium 4.4 (3.5-4.5) mEq/L Chloride 103 (98-109) mEq/L Carbon Dioxide 31 H (19-29) mEq/L BUN 38 H (7-20) mg/dL Creatinine 1.31 H (0.57-1.11) mg/dL Est GFR ( Amer) 53 L (> 60) Est GFR (Non-Af Amer) 43 L (> 60) BUN/Creatinine Ratio 29 H (6-26) Glucose 284 H (70-99) mg/dL Calculated Osmolality 305 H (280-300) Calcium 8.1 L (8.6-10.8) mg/dL Troponin I 0.01 (0-0.03) ng/mL B-Natriuretic Peptide (0-100) pg/mL 09/15/16 Range/Units 13:38 WBC (4.3-11.1) K/mcL RBC (3.82-4.97) M/mcL Hgb (11.5-15.4) g/dL Hct (35.3-44.9) % MCV (83.0-100.0) fL MCH (28.0-33.3) pg MCHC (31.6-35.5) g/dL RDW (11.5-14.5) % Plt Count (140-400) K/mcL MPV (9.4-12.4) fL Immature Gran % (0-4) % Seg Neutrophils % % Lymphocytes % % Monocytes % % Eosinophils % % Basophils % % Neutrophils # (1.6-8.9) K/mcL Lymphocytes # (0.6-4.6) K/mcL Monocytes # (0.0-1.3) K/mcL Eosinophils # (0.0-0.6) K/mcL Basophils # (0.0-0.2) K/mcL Sodium (136-145) mEq/L Potassium (3.5-4.5) mEq/L Chloride (98-109) mEq/L Carbon Dioxide (19-29) mEq/L BUN (7-20) mg/dL Creatinine (0.57-1.11) mg/dL Est GFR ( Amer) (> 60) Est GFR (Non-Af Amer) (> 60) BUN/Creatinine Ratio (6-26) Glucose (70-99) mg/dL Calculated Osmolality (280-300) Calcium (8.6-10.8) mg/dL Troponin I (0-0.03) ng/mL B-Natriuretic Peptide 2416 H (0-100) pg/mL Attestation Statement - Attestation Attestation: I examined this patient and my medical decision-making was reviewed with the SHELLACKER/PA/Advanced Practice Nurse/Resident Physician. I agree with the documented findings, disposition and treatment plan as described except to the extent set forth below. Patient emergency department with increasing shortness of breath over 2 days. Orthopnea. Patient nonambulatory. Dry cough. No fever. History of CHF and COPD. On examination she has 2-3+ pitting edema. Lungs with rhonchi and wheezes. Plan. Nebs and steroids. Lasix. Patient will be admitted.
[2016-09-15 13:55] LABS: Basophils # 0.1 K/mcL (0.0-0.2); Basophils % 0.9 %; Eosinophils # 0.2 K/mcL (0.0-0.6); Eosinophils % 2.3 %; Hematocrit 31.2 % (35.3-44.9); Hemoglobin 9.7 g/dL (11.5-15.4); Immature Granulocytes % 0.4 % (0-4); Lymphocytes # 1.1 K/mcL (0.6-4.6); Lymphocytes % 16.2 %; Mean Corpuscular HGB Conc 31.1 g/dL (31.6-35.5); Mean Corpuscular Hemoglobin 27.2 pg (28.0-33.3); Mean Corpuscular Volume 87.4 fL (83.0-100.0); Mean Platelet Volume 9.3 fL (9.4-12.4); Monocytes # 0.3 K/mcL (0.0-1.3); Monocytes % 4.8 %; Neutrophils # 5.2 K/mcL (1.6-8.9); Platelet Count 338 K/mcL (140-400); Red Blood Count 3.57 M/mcL (3.82-4.97); Red Cell Distribution Width 16.8 % (11.5-14.5); Segmented Neutrophils % 75.4 %
[2016-09-15 13:57] LABS: Calcium 8.1 mg/dL (8.6-10.8); Potassium 4.4 mEq/L (3.5-4.5)
[2016-09-15] MEDS ORDERED: Furosemide 40 MG/4 ML VIAL IVP STA (14:47)
[2016-09-15] MEDS ORDERED: Naloxone 0.4 MG/ML INJ IVP PRN (17:55)
[2016-09-15] MEDS ORDERED: Nitroglycerin 0.4 MG TAB.SUBL SL PRN (17:57)
[2016-09-15] MEDS ORDERED: ALPRAZolam 0.5 MG TABLET PO PRN (17:57)
[2016-09-15] MEDS ORDERED: Albuterol 2.5 MG/3 ML NEBULIZER IH PRN (18:00)
--- NOTE | 2016-09-15 19:30 | Internal Med History&Physical ---
Date of Encounter: 09/15/16 Time of Encounter: 19:00 Assessment and Plan (1) Acute and chronic respiratory failure ([id number]) Current visit: Yes Status: Acute 1 patient has been experiencing increasing shortness of breath past days requiring supplemental oxygen suspect this is related to exacerbation of CHF and will continue with oxygen titrating maintain SPO2 greater than 92% 2 continue with bronchodilators 3 continue with Lasix Qualifiers: Respiratory failure complication: hypoxia Qualified Code(s): J96.21 - Acute and chronic respiratory failure with hypoxia (2) CHF exacerbation Current visit: Yes Status: Acute 1 patient is on Lasix at home we will continue with IV Lasix 40 twice a day 2 1500 mL fluid restriction 3 monitor intake and output daily weights 4 low sodium diet Qualifiers: Congestive heart failure type: diastolic Qualified Code(s): I50.33 - Acute on chronic diastolic (congestive) heart failure (3) Hx of deep venous thrombosis Current visit: Yes Status: Acute 1 patient has a history of DVT in left arm we will continue with xarelto (4) Atrkd-ba-llndsns renal failure Current visit: Yes Status: Acute 1 patient's creatinine is slightly elevated from previous 1.3 on last month is 1.16. We will continue to monitor creatinine 2 suspect this is related to CHF exacerbation we will give IV Lasix 3 we will avoid nephrotoxins 4 monitor intake and output daily weights (5) DVT prophylaxis Current visit: No Status: Acute 1 patient is on xarelto (6) DM type 2 with diabetic peripheral neuropathy Current visit: Yes Status: Chronic 1 continue with basal insulin Accu-Cheks before meals and at bedtime with sliding scale insulin 2 diabetic diet (7) Depression Current visit: Yes Status: Acute 1 patient states that she has been feeling very low and sad, health is declining and her daughter does not want to bring her grandchildren to see her. She feels as if she wants to give out she denies any suicidal ideations. Discussed psych eval which patient has declined. We discussed antidepressants which she states she has been on in the past and felt that it did help her. She states that she had taken Prozac with positive results. We will start patient on Prozac Qualifiers: Depression Type: unspecified Qualified Code(s): F32.9 - Major depressive disorder, single episode, unspecified (8) COPD (chronic obstructive pulmonary disease) Current visit: No Status: Chronic 1 continue with oxygen titrated to maintain acid 292% Continue bronchodilators Qualifiers: COPD type: unspecified COPD Qualified Code(s): J44.9 - Chronic obstructive pulmonary disease, unspecified Internal Medicine - H&P: HPI Chief complaint: SOB Admitted From: Emergency Dept Plans for Post Hospital Care: Home History of present illness: Ms. Mckeon is a 46 year old female with history of CVA COPD oxygen dependent coronary disease CHF and diabetes DVT CKD 3. The patient she has been experiencing increasing shortness of breath with nonproductive cough over the past 2 days. Shortness of breath occurs at rest and exertion she denies any fevers or chills. Patient is oxygen dependent on 2 L however she has increased her oxygen without any relief. She also complains of lower extremity swelling, orthopnea. She presented to the ER with the above symptoms. According to ER records patient was given duo nebs as well as oxygen which did improve her respiratory state. Number was obtained which did show slightly elevated creatinine 1.3 on the leukocytosis troponin was 0.01 BNP was 2416. Chest x-ray revealed pulmonary edema moderate bilateral pleural effusions. Patient was given IV steroids and has been admitted for further workup evaluation. Presently patient appears to be in no respiratory distress, however did note conversational dyspnea. Lung sounds are diminished with faint scattered crackles heart sounds S1 and S2 regular with no rubs or clicks murmurs noted she has +2 pitting edema in lower extremities up to her knees bilaterally she denies any chest pain at this time. On review of those status patient becomes teary-eyed states that she does not want to live anymore that she has been very depressed because she cannot see her grandchildren. She states that she wants to be a DNR with no intubation. She denies any suicidal ideations and declined psych evaluation she was agreeable to antidepressants. She is presently hemodynamically stable at this time I reviewed this case with Dr. Meng who agrees with plan. Past Med Surg Social Fam HX - Past Medical History Medical history: cardiomyopathy, cirrhosis, CHF, COPD, coronary artery disease, CVA, DVT, diabetes, peripheral artery disease, renal disease, TIA, other Psychiatric history: anxiety, depression - Past Surgical History Surgical History: appendectomy, cholecystectomy, hysterectomy, orthopedic, other , other - Social History Smoking Status: Former smoker Smokeless Tobacco Status: No Alcohol use: none Drug use: none - Family History Father Adopted: No Family Member Ethnicity: Non- Living Status: Hx Family Cardiac Disorders: Yes Hx Family Respiratory Disorders: Yes Hx Family Cancer: Yes Hx Family Endocrine Disorder: Yes Hx Family Neurologic Disorders: No Internal Medicine - H&P: Meds Albuterol Sulfate [Proair Hfa] 2 puff IH Q4H PRN 06/18/16 [History] Atorvastatin [Lipitor] 40 mg PO HS 06/18/16 [History] Clopidogrel [Plavix] 75 mg PO DAILY 06/18/16 [History] Fenofibrate [Lofibra] 160 mg PO DAILY 06/18/16 [History] Gabapentin [Neurontin] 400 mg PO TID 06/18/16 [History] Isosorbide MONOnitrate (24 HR) [Imdur] 60 mg PO DAILY 06/18/16 [History] Lisinopril 2.5 mg PO DAILY 06/18/16 [History] Metoprolol XL (24 HR) Succ [Toprol Xl] 50 mg PO DAILY 06/18/16 [History] Potassium Chloride [Klor-Con Sprinkle] 10 meq PO BID 06/18/16 [History] ALPRAZolam [Xanax 0.5 MG Tablet] 0.5 mg PO HS PRN #30 tablet 08/14/16 [Rx] Furosemide [Lasix] 80 mg PO BID 30 Days 08/14/16 [Rx] Budesonide/Formoterol 160/4.5 [Symbicort 160/4.5] 2 puff IH BID 08/20/16 [ History] Insulin DETEMIR [Levemir Flextouch] 10 unit SQ HS 08/20/16 [History] Nitroglycerin [Nitrostat] 0.4 mg SL Q5M PRN 08/20/16 [History] Rivaroxaban [Xarelto] 15 mg PO BID 08/20/16 [History] Ipratropium/Albuterol Neb [Duoneb] 3 ml IH [id number] PRN #50 inhsol 08/24/16 [Rx] Allergies Onion Allergy (Intermediate, Verified 08/05/16 09:37) Swelling of Lip/Tongue/Throat ciprofloxacin [From Cipro] Allergy (Verified 08/04/16 19:26) Hives codeine Allergy (Verified 08/04/16 19:26) Hives insulin glargine [From Lantus] Allergy (Verified 08/04/16 19:26) Hives aspirin Adverse Reaction (Verified 08/04/16 22:12) Nausea All Systems PM: A 10-system review of systems was performed and is negative for pertinent findings except as documented above in the HPI. - Constitutional Constitutional: anorexia, fatigue, no chills, no fever(s), no night sweats - EENT Eyes: no change in vision, no discharge, no pain, no photophobia Nose, mouth and throat: no dysphagia, no nasal discharge, no neck pain, no sore throat - Cardiovascular Cardiovascular ROS IM: dyspnea, dyspnea on exertion, edema, orthopnea, no chest pain, no diaphoresis, no lightheadedness, no palpitations, no syncope - Respiratory Respiratory: no cough, no dyspnea, no wheezing, no excessive phlegm production - Gastrointestinal Gastrointestinal: no abdominal pain, no diarrhea, no hematemesis, no hematochezia, no melena, no nausea, no vomiting - Genitourinary Genitourinary: no change in urinary stream, no dysuria, no flank pain, no hematuria - Musculoskeletal Musculoskeletal ROS IM: no numbness, no tingling - Integumentary Integumentary IM: no rash, no unusual bruising - Neurological Neurological ROS: no confusion, no convulsions, no focal weakness, no numbness, no tingling, no tremor(s) - Hematologic/Lymphatic Hematologic/Lymphatic: no easy bruising - Constitutional Vitals: Temp Pulse Resp BP Pulse Ox 97.8 F 79 24 142/75 2 09/15/16 16:18 09/15/16 16:18 09/15/16 16:18 09/15/16 16:18 09/15/16 16:01 General appearance: Present: A&O X 3, answers questions appropriately - Head Head exam: Present: atraumatic, normocephalic - Eye Eye exam: Present: PERRL, conjuntiva pink, sclera anicteric Pupils: Present: PERRL - Neck Neck exam general surgery: Present: supple, trachea midline. Absent: lymphadenopathy - Respiratory Respiratory exam: Present: decreased breath sounds, rales. Absent: accessory muscle use, rhonchi, wheezes - Cardiovascular Cardiovascular exam: Present: RRR, +S1, +S2. Absent: diastolic murmur, gallop, rubs, systolic murmur - GI/Abdominal GI/Abdominal exam: Present: normal bowel sounds, soft, no peritoneal signs. Absent: distended, tenderness - Extremities Exam Extremities exam: Present: pedal edema, warm, radial pulses palpable and symetrical. Absent: calf tenderness, cyanotic - Neurological Exam Neurological exam: Present: CN II-XII intact, oriented X3, no focal deficits. Absent: pronater drift, facial droop, speech deficit - Skin Skin exam: Present: dry, intact Internal Med - H&P Results - Labs CBC & Chem 7: 09/15/16 13:38 09/15/16 13:38 Labs: Cardiac Enzymes 09/15/16 Range/Units 18:29 Troponin I 0.02 (0-0.03) ng/mL - Diagnostic Studies Chest x-ray Additional comments: Chest X-Ray 09/15/16 13:21 IMPRESSION: Cardiomegaly with unchanged moderate pulmonary edema and moderate sized bilateral pleural effusions. D/ / Atul Dean MD / Atul Dean MD Interpreting Provider: Atul Dean MD
[2016-09-15] MEDS: Budesonide/Formoterol 160/4.5 MDI IH SCH (19:54)
[2016-09-15] MEDS: Gabapentin 400 MG CAPSULE PO SCH (20:21)
[2016-09-15] MEDS: *HR* Rivaroxaban 15 MG TABLET PO SCH (20:21)
[2016-09-15] MEDS ORDERED: Insulin LISPRO 300 UNITS/3 ML VIAL SQ SCH ×2 (21:00→22:00)
[2016-09-15] MEDS ORDERED: Furosemide 40 MG/4 ML VIAL IVP SCH (21:00)
[2016-09-15] MEDS ORDERED: Dextrose Gel 15 GM PO PRN ×2 (21:54)
[2016-09-15] MEDS ORDERED: D5% in Water 1,000 ML IVC PRN (21:54)
[2016-09-15] MEDS ORDERED: *HR* Dextrose 50 % in Water (Syg) 50 ML SYRINGE IVP PRN (21:54)
[2016-09-15] MEDS ORDERED: Furosemide 40 MG/4 ML VIAL IVP ONE (22:27)
[2016-09-15] MEDS: Insulin DETEMIR 100 UNIT/ML X5UNITS SQ SCH (22:39)
[2016-09-15] MEDS: Ipratropium/Albuterol Neb 3 ML IH SCH (23:22)
[2016-09-16 01:01] LABS: Basophils % 0.1 %; Hematocrit 33.4 % (35.3-44.9); Hemoglobin 10.2 g/dL (11.5-15.4); Immature Granulocytes % 0.7 % (0-4); Lymphocytes # 0.4 K/mcL (0.6-4.6); Lymphocytes % 4.1 %; Mean Corpuscular HGB Conc 30.5 g/dL (31.6-35.5); Mean Corpuscular Volume 85.2 fL (83.0-100.0); Monocytes # 0.1 K/mcL (0.0-1.3); Monocytes % 0.7 %; Neutrophils # 8.3 K/mcL (1.6-8.9); Platelet Count 379 K/mcL (140-400); Red Blood Count 3.92 M/mcL (3.82-4.97); Red Cell Distribution Width 16.7 % (11.5-14.5); Segmented Neutrophils % 94.4 %
[2016-09-16 01:16] LABS: Calcium 8.6 mg/dL (8.6-10.8); Magnesium 1.9 mg/dL (1.6-2.6); Potassium 4.4 mEq/L (3.5-4.5)
[2016-09-16] MEDS: Insulin LISPRO 300 UNITS/3 ML VIAL SQ SCH ×5 (01:18→21:04)
[2016-09-16] MEDS ORDERED: Insulin Regular, Human 100 UNIT/ML SQ ONE ×2 (01:39→03:24)
[2016-09-16] MEDS: Ipratropium/Albuterol Neb 3 ML IH SCH ×4 (04:00→22:22)
[2016-09-16] MEDS ORDERED: Insulin LISPRO 300 UNITS/3 ML VIAL SQ SCH ×3 (07:30→21:00)
--- NOTE | 2016-09-16 08:37 | Internal Med Progress Note ---
Date of Encounter: 09/16/16 Time of Encounter: 08:35 - Assessment and plan (1) CKD (chronic kidney disease) stage 3, GFR 30-59 ml/min Current Visit: Yes Status: Acute Assessment and plan: Mildly abnormal at creatinine in the range of 1.3 watch it closely (2) DVT (deep venous thrombosis) Current Visit: Yes Status: Acute Qualifiers: DVT location: lower extremity Affected thrombotic vein of extremity: unspecified vein of extremity Laterality: unspecified laterality Chronicity : chronic Qualified Code(s): I82.509 - Chronic embolism and thrombosis of unspecified deep veins of unspecified lower extremity (3) Uncontrolled diabetes mellitus Current Visit: No Status: Chronic Qualifiers: Diabetes mellitus type: type 2 Diabetes mellitus complication status: with unspecified complications 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 She has not had echocardiogram done in last 2-3 years before echocardiogram ordered. At this time will continue to diurese her. We will follow her electrolytes and echocardiogram. Cardiac enzymes and EKG are negative. Qualifiers: Congestive heart failure type: combined Congestive heart failure chronicity : chronic Qualified Code(s): I50.42 - Chronic combined systolic (congestive) and diastolic (congestive) heart failure (5) DVT (deep venous thrombosis) Current Visit: No Status: Chronic Assessment and plan: Lovenox with mechanical device Qualifiers: DVT location: upper extremity Affected thrombotic vein of extremity: brachial Laterality: left Chronicity: chronic Qualified Code(s): I82.722 - 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 - Subjective Interval history: Ms. Antionette Mckeon is a 46-year-old female who has come in with worsening dyspnea along with orthopnea and leg edema. She was diagnosed with CHF without any acute coronary event. She is also suspected to have some COPD exacerbation inside her ears CKD which has not worsened. She is on Xarelto for her DVT agent is on beta carlos and LUC inhibitor IV Lasix and Plavix and inhalers. - Constitutional Vitals: Temp Pulse Resp BP Pulse Ox 98.3 F 83 16 132/64 92 06/15/17 06:56 09/16/16 06:56 09/16/16 06:56 09/16/16 06:56 09/16/16 06:56 General appearance: Present: A&O X 3, answers questions appropriately - Head Head exam: Present: atraumatic, normocephalic - Eye Eye exam: Present: PERRL, conjuntiva pink, sclera anicteric Pupils: Present: PERRL - Neck Neck exam general surgery: Present: supple, trachea midline. Absent: lymphadenopathy - Respiratory Respiratory exam: Present: CTAB. Absent: accessory muscle use, rales, rhonchi, wheezes Additional comments: No wheezing or rales or rub heard - Cardiovascular Cardiovascular exam: Present: RRR, +S1, +S2. Absent: diastolic murmur, gallop, rubs, systolic murmur - GI/Abdominal GI/Abdominal exam: Present: normal bowel sounds, soft, no peritoneal signs. Absent: distended, tenderness - Neurological Exam Neurological exam: Present: CN II-XII intact, oriented X3, no focal deficits. Absent: pronater drift, facial droop, speech deficit - Skin Skin exam: Present: dry, intact Internal Medicine: Result - Labs CBC & Chem 7: 09/16/16 00:37 09/16/16 00:37 Labs: Short CBC 09/16/16 Range/Units 00:37 WBC 8.8 (4.3-11.1) K/mcL Hgb 10.2 L (11.5-15.4) g/dL Hct 33.4 L (35.3-44.9) % Plt Count 379 (140-400) K/mcL Neutrophils # 8.3 (1.6-8.9) K/mcL BMP 09/16/16 00:37 Sodium 134 L Potassium 4.4 Chloride 98 Carbon Dioxide 26 BUN 44 H Creatinine 1.46 H Glucose 517 H* Calcium 8.6 Cardiac Enzymes 09/16/16 Range/Units 00:37 Troponin I 0.02 (0-0.03) ng/mL Consult Discharge Plan - Plan Referrals: Olayinka Pearson [Non-Partnered Physician] - 09/27/16 5:30 pm
[2016-09-16] MEDS: Fenofibrate 54 MG TABLET PO SCH (09:10)
[2016-09-16] MEDS: Gabapentin 400 MG CAPSULE PO SCH ×3 (09:11→21:06)
[2016-09-16] MEDS: Metoprolol XL (24 HR) Succ 50 MG TAB.ER.24H PO SCH (09:11)
[2016-09-16] MEDS: FLUoxetine 20 MG CAPSULE PO SCH (09:11)
[2016-09-16] MEDS: *HR* Rivaroxaban 15 MG TABLET PO SCH ×2 (09:11→16:25)
[2016-09-16] MEDS: Isosorbide MONOnitrate (24 HR) 60 MG TAB.ER.24H PO SCH (09:11)
[2016-09-16] MEDS: Furosemide 80 MG in 0.9 % Sodium Chloride 50 ML IVPB SCH ×2 (10:40→17:26)
[2016-09-16] MEDS: Budesonide/Formoterol 160/4.5 MDI IH SCH ×3 (10:45→22:23)
[2016-09-16] MEDS ORDERED: Insulin DETEMIR 100 UNIT/ML X5UNITS SQ ONE (10:54)
--- NOTE | 2016-09-16 14:41 | Electrocardiograph Report ---
[address] [address] Test Date: 2016-09-15 Pat Name: Antionette Mckeon Department: 105 Room: 3A42 Gender: F Rough Rounder: FERNANDO : 1970 Requested By: Brian Arora Order Number: [id number] Reading MD: Kirk Swanson MD Measurements Intervals [place] Rate: 70 P: 49 AR: 180 QRS: 19 QRSD: 110 T: -21 QT: 417 QTc: 438 Interpretive Statements SINUS RHYTHM LEFT ATRIAL ENLARGEMENT Electronically Signed On 09-16-2016 14:40:06 EDT by Kirk Swanson MD
[2016-09-16] MEDS: Nicotine 14 MG PATCH.TD24 TD SCH (14:53)
[2016-09-16] MEDS: MethylPREDNISolone 40 MG/ML VIAL IVP SCH (16:26)
[2016-09-16] MEDS: Insulin DETEMIR 100 UNIT/ML X5UNITS SQ SCH (21:05)
[2016-09-17] MEDS: MethylPREDNISolone 40 MG/ML VIAL IVP SCH ×3 (00:18→15:56)
[2016-09-17] MEDS: Ipratropium/Albuterol Neb 3 ML IH SCH ×4 (04:17→22:21)
[2016-09-17 06:52] LABS: Basophils % 0.1 %; Hematocrit 34.2 % (35.3-44.9); Hemoglobin 10.7 g/dL (11.5-15.4); Immature Granulocytes % 0.3 % (0-4); Lymphocytes # 0.6 K/mcL (0.6-4.6); Lymphocytes % 5.7 %; Mean Corpuscular HGB Conc 31.3 g/dL (31.6-35.5); Mean Corpuscular Hemoglobin 26.8 pg (28.0-33.3); Mean Corpuscular Volume 85.7 fL (83.0-100.0); Mean Platelet Volume 10.8 fL (9.4-12.4); Monocytes # 0.1 K/mcL (0.0-1.3); Monocytes % 0.8 %; Neutrophils # 9.1 K/mcL (1.6-8.9); Platelet Count 287 K/mcL (140-400); Red Blood Count 3.99 M/mcL (3.82-4.97); Red Cell Distribution Width 16.9 % (11.5-14.5); Segmented Neutrophils % 93.1 %
[2016-09-17 07:10] LABS: Albumin 2.9 g/dL (3.5-5.0); Albumin/Globulin Ratio 0.8 (1.1-2.2); Bilirubin,Total 0.5 mg/dL (0.2-1.2); Globulin 3.8 g/dL (2.4-3.5); Potassium 4.3 mEq/L (3.5-4.5); Total Protein 6.7 g/dL (6.0-8.3)
[2016-09-17] MEDS: Insulin LISPRO 300 UNITS/3 ML VIAL SQ SCH ×4 (08:06→21:06)
[2016-09-17] MEDS: Furosemide 80 MG in 0.9 % Sodium Chloride 50 ML IVPB SCH ×2 (09:23→16:47)
[2016-09-17] MEDS: Insulin DETEMIR 100 UNIT/ML X5UNITS SQ SCH ×2 (09:24→21:06)
[2016-09-17] MEDS: Nicotine 14 MG PATCH.TD24 TD SCH (09:25)
[2016-09-17] MEDS: Fenofibrate 54 MG TABLET PO SCH (09:25)
[2016-09-17] MEDS: Metoprolol XL (24 HR) Succ 50 MG TAB.ER.24H PO SCH (09:27)
[2016-09-17] MEDS: FLUoxetine 20 MG CAPSULE PO SCH (09:28)
[2016-09-17] MEDS: Gabapentin 400 MG CAPSULE PO SCH ×3 (09:28→21:06)
[2016-09-17] MEDS: Isosorbide MONOnitrate (24 HR) 60 MG TAB.ER.24H PO SCH (09:29)
[2016-09-17] MEDS: Budesonide/Formoterol 160/4.5 MDI IH SCH ×3 (10:45→22:21)
[2016-09-17] MEDS: *HR* Rivaroxaban 10 MG TABLET PO SCH (16:47)
--- NOTE | 2016-09-17 17:54 | Internal Med Progress Note ---
Date of Encounter: 09/17/16 Time of Encounter: 17:48 - Assessment and plan (1) CKD (chronic kidney disease) stage 3, GFR 30-59 ml/min Current Visit: Yes Status: Acute Assessment and plan: Mildly abnormal at creatinine in the range of 1.3 watch it closely creatinine has improves mildly with diuresis though BU and has gone up (2) DVT (deep venous thrombosis) Current Visit: Yes Status: Acute Assessment and plan: She is on Xarelto and dose has been adjusted to 20 mg daily Qualifiers: DVT location: lower extremity Affected thrombotic vein of extremity: unspecified vein of extremity Laterality: unspecified laterality Chronicity : chronic Qualified Code(s): I82.509 - Chronic embolism and thrombosis of unspecified deep veins of unspecified lower extremity (3) Uncontrolled diabetes mellitus Current Visit: Yes Status: Chronic Assessment and plan: Will increase Levemir to 20 unit twice a day Qualifiers: Diabetes mellitus type: type 2 Diabetes mellitus complication status: with unspecified complications 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 She has not had echocardiogram done in last 2-3 years before echocardiogram ordered. At this time will continue to diurese her. We will follow her electrolytes and echocardiogram. Cardiac enzymes and EKG are negative. Echocardiogram showed EF 35-40%. Cardiology is consulted. She is diuresing very well and feels much better. Qualifiers: Congestive heart failure type: combined Congestive heart failure chronicity : chronic Qualified Code(s): I50.42 - Chronic combined systolic (congestive) and diastolic (congestive) heart failure (5) DVT (deep venous thrombosis) Current Visit: No Status: Chronic Qualifiers: DVT location: upper extremity Affected thrombotic vein of extremity: brachial Laterality: left Chronicity: chronic Qualified Code(s): I82.722 - 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 (6) COPD (chronic obstructive pulmonary disease) Current Visit: Yes Status: Chronic Assessment and plan: On IV steroids and med and wheezing quite a bit Qualifiers: COPD type: unspecified COPD Qualified Code(s): J44.9 - Chronic obstructive pulmonary disease, unspecified - Subjective Interval history: Ms. Antionette Mckeon is a 46-year-old female who has come in with worsening dyspnea along with orthopnea and leg edema. She was diagnosed with CHF without any acute coronary event. She is also suspected to have some COPD exacerbation inside her ears CKD which has not worsened. She is on Xarelto for her DVT agent is on beta carlos and PRASHANTH inhibitor IV Lasix and Plavix and inhalers. 09/17 patient has diuresed very well and Is and O's are -2800 in last 24 hours. She is feeling much better. Echocardiogram showed ejection fraction of 35-40% with LV dysfunction. We will consult her probate paralegal Dr. Welsh who has been notified as her CHF has improved I have noticed significant respiratory wheezing and she is already on nebulizer treatment beside IV steroids. Her renal function have improved modestly despite diuresis. She is currently on Xarelto for previous history of DVT however her home dose was 15 mg twice a day which did not make sense therefore we have converted it to 20 mg daily. I will check with her probate paralegal if he has an knowledge about correct dose in her case. Blood pressure is elevated and in order to reduce afterload I will add hydralazine while she is already on isosorbide. She is on low-dose PRASHANTH inhibitor and the reason we are not increasing it and adding hydralazine at this time because of her renal function and while we are diuresing her with do not want to expose her renal arterioles to higher dose of Prashanth while she is relatively dehydrated. However as her renal function will improve and she will become euvolemic I Will DC hydralazine and probably increase her lisinopril. - Constitutional Vitals: Temp Pulse Resp BP Pulse Ox 98.4 F 68 16 137/67 95 09/17/16 16:03 09/17/16 16:03 09/17/16 16:11 09/17/16 16:03 09/17/16 16:11 General appearance: Present: A&O X 3, answers questions appropriately - Head Head exam: Present: atraumatic, normocephalic - Eye Eye exam: Present: PERRL, conjuntiva pink, sclera anicteric Pupils: Present: PERRL - Neck Neck exam general surgery: Present: supple, trachea midline. Absent: lymphadenopathy - Respiratory Respiratory exam: Present: decreased breath sounds, prolonged expiratory phase, rhonchi, wheezes. Absent: accessory muscle use, rales Additional comments: Basal rales - Cardiovascular Cardiovascular exam: Present: irregular rhythm, +S1, +S2. Absent: diastolic murmur, gallop, rubs, systolic murmur - GI/Abdominal GI/Abdominal exam: Present: normal bowel sounds, soft, no peritoneal signs. Absent: distended, tenderness - Extremities Exam Extremities exam: Present: warm, radial pulses palpable and symetrical. Absent : calf tenderness, cyanotic, pedal edema - Neurological Exam Neurological exam: Present: CN II-XII intact, oriented X3, no focal deficits. Absent: pronater drift, facial droop, speech deficit - Skin Skin exam: Present: dry, intact Internal Medicine: Result - Labs CBC & Chem 7: 09/17/16 06:28 09/17/16 06:28 Labs: Short CBC 09/17/16 Range/Units 06:28 WBC 9.8 (4.3-11.1) K/mcL Hgb 10.7 L (11.5-15.4) g/dL Hct 34.2 L (35.3-44.9) % Plt Count 287 (140-400) K/mcL Neutrophils # 9.1 H (1.6-8.9) K/mcL BMP 09/17/16 06:28 Sodium 137 Potassium 4.3 Chloride 101 Carbon Dioxide 24 BUN 52 H Creatinine 1.33 H Glucose 198 H Calcium 9.0 Liver Function 09/17/16 Range/Units 06:28 Total Bilirubin 0.5 (0.2-1.2) mg/dL AST 18 (5-34) Units/L ALT 9 (0-55) Units/L Alkaline Phosphatase 70 (38-126) Units/L Albumin 2.9 L (3.5-5.0) g/dL Consult Discharge Plan - Plan Referrals: Olayinka Pearson [Non-Partnered Physician] - 09/27/16 5:30 pm
[2016-09-18] MEDS: MethylPREDNISolone 40 MG/ML VIAL IVP SCH ×3 (01:06→16:41)
[2016-09-18] MEDS: hydrALAZINE 25 MG TABLET PO SCH ×3 (01:06→16:43)
[2016-09-18] MEDS: Ipratropium/Albuterol Neb 3 ML IH SCH ×4 (04:17→22:47)
[2016-09-18 05:46] LABS: Basophils % 0.1 %; Hemoglobin 9.3 g/dL (11.5-15.4); Immature Granulocytes % 0.4 % (0-4); Lymphocytes # 0.4 K/mcL (0.6-4.6); Lymphocytes % 3.2 %; Mean Corpuscular Hemoglobin 26.5 pg (28.0-33.3); Mean Corpuscular Volume 85.5 fL (83.0-100.0); Mean Platelet Volume 9.7 fL (9.4-12.4); Monocytes # 0.2 K/mcL (0.0-1.3); Monocytes % 1.4 %; Neutrophils # 11.8 K/mcL (1.6-8.9); Platelet Count 422 K/mcL (140-400); Red Blood Count 3.51 M/mcL (3.82-4.97); Segmented Neutrophils % 94.9 %
[2016-09-18 06:14] LABS: Albumin 2.6 g/dL (3.5-5.0); Albumin/Globulin Ratio 0.7 (1.1-2.2); Bilirubin,Total 0.4 mg/dL (0.2-1.2); Calcium 8.4 mg/dL (8.6-10.8); Globulin 3.5 g/dL (2.4-3.5); Potassium 4.2 mEq/L (3.5-4.5); Total Protein 6.1 g/dL (6.0-8.3)
[2016-09-18] MEDS: Metoprolol XL (24 HR) Succ 50 MG TAB.ER.24H PO SCH (08:09)
[2016-09-18] MEDS: FLUoxetine 20 MG CAPSULE PO SCH (08:09)
[2016-09-18] MEDS: Isosorbide MONOnitrate (24 HR) 60 MG TAB.ER.24H PO SCH (08:09)
[2016-09-18] MEDS: Fenofibrate 54 MG TABLET PO SCH (08:10)
[2016-09-18] MEDS: Gabapentin 400 MG CAPSULE PO SCH ×3 (08:10→20:11)
[2016-09-18] MEDS: Insulin LISPRO 300 UNITS/3 ML VIAL SQ SCH ×4 (08:13→21:01)
[2016-09-18] MEDS: Insulin DETEMIR 100 UNIT/ML X5UNITS SQ SCH ×2 (08:14→21:01)
[2016-09-18] MEDS: Nicotine 14 MG PATCH.TD24 TD SCH (08:15)
--- NOTE | 2016-09-18 08:58 | Cardiology Consult Note ---
Date of Encounter: 09/18/16 Time of Encounter: 08:54 Assessment and Plan (1) Congestive heart failure Current Visit: Yes Status: Chronic Appears to be back to baseline. Can be discharged today with outpt. follow up with cardiology. Qualifiers: Congestive heart failure type: systolic Congestive heart failure chronicity : acute on chronic Qualified Code(s): I50.23 - Acute on chronic systolic ( congestive) heart failure (2) CAD (coronary artery disease) Current Visit: No Status: Chronic Known CAD with previos stent. No evidence of ACS. Denies chest pain. Qualifiers: Coronary Disease-Associated Artery/Lesion type: [place] artery [place] vs. transplanted heart: [place] heart Associated angina: without angina Qualified Code(s): I25.10 - Atherosclerotic heart disease of [place] coronary artery without angina pectoris Discussion w patient/family: The assessment and plan as outlined above was discussed with the patient and/or family members who expressed understanding and agreement. All questions were answered. Thank you for involving us in the care of your patient. Please call with any questions. History of Present Illness Consult date: 09/18/16 Requesting physician: Merlin Tariq Consult reason: CHF History of present illness: Ms. Mckeon is a 46 year old female with a history of CAD and ischemic cardiomyopathy. She is not konwn to me and has not been seen in out office for one year. She was here in August for CHF exacerbation. She presents at this time for recurrent CHF. SHe has been diuresed and is currently back to baseline. She denies chest pain. Repeat echo shows stable cardiomyopathy. Past Med Surg Social Fam HX - Past Medical History Medical history: cardiomyopathy, cirrhosis, CHF, COPD, coronary artery disease, CVA, DVT, diabetes, peripheral artery disease, renal disease, TIA, other Psychiatric history: anxiety, depression - Past Surgical History Surgical History: appendectomy, cholecystectomy, hysterectomy, orthopedic, other , other - Social History Smoking Status: Former smoker Smokeless Tobacco Status: No Alcohol use: none Drug use: none - Family History Father Adopted: No Family Member Ethnicity: Non- Living Status: Hx Family Cardiac Disorders: Yes Hx Family Respiratory Disorders: Yes Hx Family Cancer: Yes Hx Family Endocrine Disorder: Yes Hx Family Neurologic Disorders: No Medications and Allergies Albuterol Sulfate [Proair Hfa] 2 puff IH Q4H PRN 06/18/16 [History] Atorvastatin [Lipitor] 40 mg PO HS 06/18/16 [History] Clopidogrel [Plavix] 75 mg PO DAILY 06/18/16 [History] Fenofibrate [Lofibra] 160 mg PO DAILY 06/18/16 [History] Gabapentin [Neurontin] 400 mg PO TID 06/18/16 [History] Isosorbide MONOnitrate (24 HR) [Imdur] 60 mg PO DAILY 06/18/16 [History] Lisinopril 2.5 mg PO DAILY 06/18/16 [History] Metoprolol XL (24 HR) Succ [Toprol Xl] 50 mg PO DAILY 06/18/16 [History] Potassium Chloride [Klor-Con Sprinkle] 10 meq PO BID 06/18/16 [History] ALPRAZolam [Xanax 0.5 MG Tablet] 0.5 mg PO HS PRN #30 tablet 08/14/16 [Rx] Furosemide [Lasix] 80 mg PO BID 30 Days 08/14/16 [Rx] Budesonide/Formoterol 160/4.5 [Symbicort 160/4.5] 2 puff IH BID 08/20/16 [ History] Insulin DETEMIR [Levemir Flextouch] 10 unit SQ HS 08/20/16 [History] Nitroglycerin [Nitrostat] 0.4 mg SL Q5M PRN 08/20/16 [History] Rivaroxaban [Xarelto] 15 mg PO BID 08/20/16 [History] Ipratropium/Albuterol Neb [Duoneb] 3 ml IH [id number] PRN #50 inhsol 08/24/16 [Rx] Allergies Onion Allergy (Intermediate, Verified 08/05/16 09:37) Swelling of Lip/Tongue/Throat ciprofloxacin [From Cipro] Allergy (Verified 08/04/16 19:26) Hives codeine Allergy (Verified 08/04/16 19:26) Hives insulin glargine [From Lantus] Allergy (Verified 08/04/16 19:26) Hives aspirin Adverse Reaction (Verified 08/04/16 22:12) Nausea All Systems Review: A 10-system review of systems was performed and is negative for pertinent findings except as documented above in the HPI. Physical Examination Vital Signs, Last 4 Hours Temp Pulse Resp BP Pulse Ox 06/17/17 07:41 98.1 F 81 22 148/72 88 General: Conversant, No Apparent Distress HEENT: Atraumatic, Normocephaly, Mucus Membranes Moist Neck: No JVD, Normal carotid pulses Cardiac: Reg Rate and Rhythm, Normal S1 and S2, No Murmur Lungs: Other (Scattered rouchi, otherwise clear) Neuro: Alert and responsive, No focal deficits noted Abdomen: Soft, Non-Tender Skin: No rashes noted on visualized skin Musculoskeletal: No Chest Wall Tenderness Results 09/18/16 04:46 09/18/16 04:46 Lab Results 09/18/16 09/18/16 04:46 04:46 WBC 12.5 H Hgb 9.3 L Hct 30.0 L Plt Count 422 H Sodium 137 Potassium 4.2 Chloride 98 Carbon Dioxide 29 BUN 67 H D Creatinine 1.68 H Glucose 413 H Calcium 8.4 L Total Bilirubin 0.4 AST 11 ALT 8 Alkaline Phosphatase 70 Consult Discharge Plan - Plan Referrals: Olayinka Pearson [Non-Partnered Physician] - 09/27/16 5:30 pm
[2016-09-18] MEDS: Budesonide/Formoterol 160/4.5 MDI IH SCH ×2 (09:19→22:47)
[2016-09-18] MEDS: Furosemide 80 MG in 0.9 % Sodium Chloride 50 ML IVPB SCH ×2 (10:51→16:41)
[2016-09-18] MEDS: *HR* Rivaroxaban 10 MG TABLET PO SCH (16:43)
--- NOTE | 2016-09-18 18:31 | Internal Med Progress Note ---
Date of Encounter: 09/18/16 Time of Encounter: 18:29 - Assessment and plan (1) CKD (chronic kidney disease) stage 3, GFR 30-59 ml/min Current Visit: Yes Status: Acute (2) DVT (deep venous thrombosis) Current Visit: Yes Status: Acute Qualifiers: DVT location: lower extremity Affected thrombotic vein of extremity: unspecified vein of extremity Laterality: unspecified laterality Chronicity : chronic Qualified Code(s): I82.509 - Chronic embolism and thrombosis of unspecified deep veins of unspecified lower extremity (3) Uncontrolled diabetes mellitus Current Visit: Yes Status: Chronic Qualifiers: Diabetes mellitus type: type 2 Diabetes mellitus complication status: with unspecified complications 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: unspecified physicist 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 and 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 insulin use status Qualified Code(s): E11.8 - Type 2 diabetes mellitus with unspecified complications; E11.65 - Type 2 diabetes mellitus with hyperglycemia (4) Congestive heart failure Current Visit: Yes Status: Chronic Qualifiers: Congestive heart failure type: systolic Congestive heart failure chronicity : acute on chronic Qualified Code(s): I50.23 - Acute on chronic systolic ( congestive) heart failure (5) DVT (deep venous thrombosis) Current Visit: No Status: Chronic Qualifiers: DVT location: upper extremity Affected thrombotic vein of extremity: brachial Laterality: left Chronicity: chronic Qualified Code(s): I82.722 - 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 (6) COPD (chronic obstructive pulmonary disease) Current Visit: Yes Status: Chronic Qualifiers: COPD type: unspecified COPD Qualified Code(s): J44.9 - Chronic obstructive pulmonary disease, unspecified - Subjective Interval history: Ms. Antionette Mckeon is a 46-year-old female who has come in with worsening dyspnea along with orthopnea and leg edema. She was diagnosed with CHF without any acute coronary event. She is also suspected to have some COPD exacerbation inside her ears CKD which has not worsened. She is on Xarelto for her DVT agent is on beta carlos and PRASHANTH inhibitor IV Lasix and Plavix and inhalers. 09/17 patient has diuresed very well and Is and O's are -2800 in last 24 hours. She is feeling much better. Echocardiogram showed ejection fraction of 35-40% with LV dysfunction. We will consult her bronzer Dr. Welsh who has been notified as her CHF has improved I have noticed significant respiratory wheezing and she is already on nebulizer treatment beside IV steroids. Her renal function have improved modestly despite diuresis. She is currently on Xarelto for previous history of DVT however her home dose was 15 mg twice a day which did not make sense therefore we have converted it to 20 mg daily. I will check with her bronzer if he has an knowledge about correct dose in her case. Blood pressure is elevated and in order to reduce afterload I will add hydralazine while she is already on isosorbide. She is on low-dose PRASHANTH inhibitor and the reason we are not increasing it and adding hydralazine at this time because of her renal function and while we are diuresing her with do not want to expose her renal arterioles to higher dose of Prashanth while she is relatively dehydrated. However as her renal function will improve and she will become euvolemic I Will DC hydralazine and probably increase her lisinopril. 09/18 breathing much better now and on only 2 L. she has lost 8 kg or more since admission. Her lung sounds clear and leg edema is gone but still has some pedal edema for bronzer saw her yesterday. We plan to change her Lasix to by mouth as her creatinine has a started going up. Altered that she is drinking more than 20 half liter water. Will also reduce her Solu-Medrol to 40 twice a day as lung sounds generally clear. As reduce her Solu-Medrol her blood sugars are improving also. The patient is very well controlled by hydralazine and considering that her creatinine is coming up I will hold on her lisinopril completely. - Constitutional Vitals: Temp Pulse Resp BP Pulse Ox 97.4 F L 73 18 137/66 97 09/18/16 15:59 09/18/16 15:59 09/18/16 16:26 09/18/16 15:59 09/18/16 16:26 General appearance: Present: A&O X 3, answers questions appropriately - Head Head exam: Present: atraumatic, normocephalic - Eye Eye exam: Present: PERRL, conjuntiva pink, sclera anicteric Pupils: Present: PERRL - Neck Neck exam general surgery: Present: supple, trachea midline. Absent: lymphadenopathy - Respiratory Respiratory exam: Present: CTAB. Absent: accessory muscle use, rales, rhonchi, wheezes - Cardiovascular Cardiovascular exam: Present: RRR, +S1, +S2. Absent: diastolic murmur, gallop, rubs, systolic murmur - GI/Abdominal GI/Abdominal exam: Present: normal bowel sounds, soft, no peritoneal signs. Absent: distended, tenderness - Extremities Exam Extremities exam: Present: pedal edema, warm, radial pulses palpable and symetrical. Absent: calf tenderness, cyanotic - Neurological Exam Neurological exam: Present: CN II-XII intact, oriented X3, no focal deficits. Absent: pronater drift, facial droop, speech deficit - Skin Skin exam: Present: dry, intact Internal Medicine: Result - Labs CBC & Chem 7: 09/18/16 04:46 09/18/16 04:46 Labs: Short CBC 09/18/16 Range/Units 04:46 WBC 12.5 H (4.3-11.1) K/mcL Hgb 9.3 L (11.5-15.4) g/dL Hct 30.0 L (35.3-44.9) % Plt Count 422 H (140-400) K/mcL Neutrophils # 11.8 H (1.6-8.9) K/mcL BMP 09/18/16 04:46 Sodium 137 Potassium 4.2 Chloride 98 Carbon Dioxide 29 BUN 67 H D Creatinine 1.68 H Glucose 413 H Calcium 8.4 L Liver Function 09/18/16 Range/Units 04:46 Total Bilirubin 0.4 (0.2-1.2) mg/dL AST 11 (5-34) Units/L ALT 8 (0-55) Units/L Alkaline Phosphatase 70 (38-126) Units/L Albumin 2.6 L (3.5-5.0) g/dL Consult Discharge Plan - Plan Referrals: Olayinka Pearson [Non-Partnered Physician] - 09/27/16 5:30 pm
[2016-09-18] MEDS ORDERED: Ondansetron 4 MG/2 ML VIAL IVP PRN (18:34)
[2016-09-18] MEDS: Furosemide 40 MG TABLET PO SCH (18:51)
[2016-09-18] MEDS ORDERED: Insulin LISPRO 300 UNITS/3 ML VIAL SQ ONE (22:20)
[2016-09-19] MEDS: hydrALAZINE 25 MG TABLET PO SCH ×2 (00:35→07:52)
[2016-09-19] MEDS: Ipratropium/Albuterol Neb 3 ML IH SCH ×2 (05:03→08:02)
[2016-09-19 05:19] LABS: Basophils % 0.1 %; Hematocrit 28.1 % (35.3-44.9); Hemoglobin 8.9 g/dL (11.5-15.4); Immature Granulocytes % 0.9 % (0-4); Lymphocytes # 1.1 K/mcL (0.6-4.6); Lymphocytes % 7.6 %; Mean Corpuscular HGB Conc 31.7 g/dL (31.6-35.5); Mean Corpuscular Hemoglobin 26.7 pg (28.0-33.3); Mean Corpuscular Volume 84.4 fL (83.0-100.0); Mean Platelet Volume 9.4 fL (9.4-12.4); Monocytes # 0.7 K/mcL (0.0-1.3); Monocytes % 5.2 %; Neutrophils # 11.9 K/mcL (1.6-8.9); Platelet Count 415 K/mcL (140-400); Red Blood Count 3.33 M/mcL (3.82-4.97); Red Cell Distribution Width 16.9 % (11.5-14.5); Segmented Neutrophils % 86.2 %
[2016-09-19 05:36] LABS: Albumin 2.5 g/dL (3.5-5.0); Albumin/Globulin Ratio 0.8 (1.1-2.2); Bilirubin,Total 0.3 mg/dL (0.2-1.2); Calcium 8.2 mg/dL (8.6-10.8); Globulin 3.2 g/dL (2.4-3.5); Potassium 3.9 mEq/L (3.5-4.5); Total Protein 5.7 g/dL (6.0-8.3)
[2016-09-19] MEDS ORDERED: MethylPREDNISolone 40 MG/ML VIAL IVP SCH (06:00)
[2016-09-19] MEDS: Furosemide 40 MG TABLET PO SCH (07:51)
[2016-09-19] MEDS: Nicotine 14 MG PATCH.TD24 TD SCH (07:51)
[2016-09-19] MEDS: Isosorbide MONOnitrate (24 HR) 60 MG TAB.ER.24H PO SCH (07:51)
[2016-09-19] MEDS: Gabapentin 400 MG CAPSULE PO SCH (07:51)
[2016-09-19] MEDS: Fenofibrate 54 MG TABLET PO SCH (07:52)
[2016-09-19] MEDS: FLUoxetine 20 MG CAPSULE PO SCH (07:52)
[2016-09-19] MEDS: Metoprolol XL (24 HR) Succ 50 MG TAB.ER.24H PO SCH (07:52)
[2016-09-19] MEDS: Insulin LISPRO 300 UNITS/3 ML VIAL SQ SCH ×2 (07:52→12:24)
[2016-09-19] MEDS: Insulin DETEMIR 100 UNIT/ML X5UNITS SQ SCH (07:57)
[2016-09-19] MEDS: Budesonide/Formoterol 160/4.5 MDI IH SCH (08:02)
[2016-09-19 10:42] VITALS: BP 119/61
--- NOTE | 2016-09-19 12:32 | Discharge Summary ---
Date of Encounter: 09/19/16 Time of Encounter: 12:23 - Discharge Diagnosis (1) CKD (chronic kidney disease) stage 3, GFR 30-59 ml/min Priority: Secondary Status: Acute (2) DVT (deep venous thrombosis) Priority: Secondary Status: Acute Qualifiers: DVT location: lower extremity Affected thrombotic vein of extremity: unspecified vein of extremity Laterality: unspecified laterality Chronicity : chronic Qualified Code(s): I82.509 - Chronic embolism and thrombosis of unspecified deep veins of unspecified lower extremity (3) Uncontrolled diabetes mellitus Priority: Secondary Status: Chronic Qualifiers: Diabetes mellitus type: type 2 Diabetes mellitus complication status: with unspecified complications Diabetes mellitus [place] insulin use: unspecified skilled nursing insulin use status Qualified Code(s): E11.8 - Type 2 diabetes mellitus with unspecified complications; E11.65 - Type 2 diabetes mellitus with hyperglycemia (4) Congestive heart failure Priority: Primary Status: Acute Qualifiers: Congestive heart failure type: combined Congestive heart failure chronicity : acute on chronic Qualified Code(s): I50.43 - Acute on chronic combined systolic (congestive) and diastolic (congestive) heart failure (5) DVT (deep venous thrombosis) Priority: Secondary Status: Chronic Qualifiers: DVT location: upper extremity Affected thrombotic vein of extremity: brachial Laterality: left Chronicity: chronic Qualified Code(s): I82.722 - 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 (6) COPD (chronic obstructive pulmonary disease) Priority: Primary Status: Acute Qualifiers: COPD type: COPD with acute exacerbation Qualified Code(s): J44.1 - Chronic obstructive pulmonary disease with (acute) exacerbation - Discharge Medications Prescriptions: hydrALAZINE [HydrALAZINE] 25 mg PO Q8HR #90 tablet Furosemide [Lasix] 80 mg PO BIDDIURETIC #120 tablet Ipratropium/Albuterol Neb [Duoneb] 3 ml IH QIDR #120 inhsol Nicotine Patch [Nicoderm] 14 mg TD DAILY #20 patch.td24 predniSONE [PredniSONE] 10 mg PO DAILY #62 tablet Home Medications: Albuterol Sulfate [Proair Hfa] 2 puff IH Q4H PRN 06/18/16 [History] Atorvastatin [Lipitor] 40 mg PO HS 06/18/16 [History] Clopidogrel [Plavix] 75 mg PO DAILY 06/18/16 [History] Fenofibrate [Lofibra] 160 mg PO DAILY 06/18/16 [History] Gabapentin [Neurontin] 400 mg PO TID 06/18/16 [History] Isosorbide MONOnitrate (24 HR) [Imdur] 60 mg PO DAILY 06/18/16 [History] Metoprolol XL (24 HR) Succ [Toprol Xl] 50 mg PO DAILY 06/18/16 [History] Potassium Chloride [Klor-Con Sprinkle] 10 meq PO BID 06/18/16 [History] ALPRAZolam [Xanax 0.5 MG Tablet] 0.5 mg PO HS PRN #30 tablet 08/14/16 [Rx] Furosemide [Lasix] 80 mg PO BID 30 Days 08/14/16 [Rx] Budesonide/Formoterol 160/4.5 [Symbicort 160/4.5] 2 puff IH BID 08/20/16 [ History] Insulin DETEMIR [Levemir Flextouch] 10 unit SQ HS 08/20/16 [History] Nitroglycerin [Nitrostat] 0.4 mg SL Q5M PRN 08/20/16 [History] Rivaroxaban [Xarelto] 15 mg PO BID 08/20/16 [History] Furosemide [Lasix] 80 mg PO BIDDIURETIC #120 tablet 09/19/16 [Rx] Ipratropium/Albuterol Neb [Duoneb] 3 ml IH QIDR #120 inhsol 09/19/16 [Rx] Nicotine Patch [Nicoderm] 14 mg TD DAILY #20 patch.td24 09/19/16 [Rx] Rivaroxaban [Xarelto] 20 mg PO 1700 tablet 09/19/16 [Rx] hydrALAZINE [HydrALAZINE] 25 mg PO Q8HR #90 tablet 09/19/16 [Rx] predniSONE [PredniSONE] 10 mg PO DAILY #62 tablet 09/19/16 [Rx] Allergies/Adverse Reactions: Allergies Onion Allergy (Intermediate, Verified 08/05/16 09:37) Swelling of Lip/Tongue/Throat ciprofloxacin [From Cipro] Allergy (Verified 08/04/16 19:26) Hives codeine Allergy (Verified 08/04/16 19:26) Hives insulin glargine [From Lantus] Allergy (Verified 08/04/16 19:26) Hives aspirin Adverse Reaction (Verified 08/04/16 22:12) Nausea Date of admission: 09/15/16 23:59 Primary care physician: PCP NO Consults: 09/16/16 10:50 PT [Consult to Physical Therapy] [CONS] Routine Comment: Evaluate, develop and implement POC Reason for Consult: weakness 09/16/16 10:51 OT [Consult to Occupational Therapy] [CONS] Routine Comment: Evaluate, develop and implement POC Reason for Consult: weakness, home OT 09/17/16 17:42 Consult to Cardiology [CONS] Routine Comment: Consulting Provider: Cardiology Hillary Reason for Consult: Cardiac myopathy/congestive heart failure/atrial fibrillation Time Notified: 17:42 Call Completed: No Discharging clinician: Merlin Tariq Anticipated date of discharge: 09/19/16 - Patient Status Disposition: Home, Self-Care Condition: Good Overall status at discharge: patient is progressing back to baseline - Discharge Instructions Instructions: Chronic Obstructive Pulmonary Disease (DC) Follow Up With: Olayinka Pearson [Non-Partnered Physician] - 09/27/16 5:30 pm Additional Instructions: Follow-up appointments: If there is not an appointment listed below, please call your physician and schedule a follow-up appointment. If you have congestive heart failure and your symptoms return, make an appointment with your physician. Medication List: Carry an up to date list of medications you are taking at all time. We have given you an updated medication list including any new medications that you have been prescribed. Please provide that list to your primary provider Symptoms: If your condition changes or you experience any of the following symptoms, notify your physician immediately: Unusual or worsening pain, fever, persistent nausea and vomiting, bleeding, increase in swelling (especially in your legs), sudden weight gain, extreme dizziness, chest pain, increased drainage or redness from a wound or incision. Go to the emergency department if you experience a problem with breathing. Weights: If you have a history of swelling or shortness of breath, weigh yourself daily and notify your physician if you have a weight gain of two or more pounds in one day or 5 or more pounds in a week. If you experience any of the warning signs for stroke: Sudden numbness or weakness of the face, arm or leg; especially on one side of the body, sudden confusion, trouble speaking or understanding, sudden trouble seeing in one or both eyes, sudden trouble walking, dizziness, loss of balance or coordination, sudden sever headache with no cause; Call 911 or go to the emergency room. Stroke is a medical emergency. Some risk factors for stroke: Age, cigarette smoking, diabetes, excessive alcohol consumption, family history , high blood pressure, overweight, physical inactivity, prior stroke, heart attack, diagnosis of carotid artery stenosis or other artery disease. If you smoke, STOP: Smoking or tobacco use significantly increases your risk of heart and lung disease. Your chance of disease greatly increases if you continue to smoke. For more information, call the [place] tobacco quit line for smoking cessation QUIT-NOW ( ) - Diet and Activity Activity: resume usual activities as tolerated, wear oxygen at all times Diet: advance to your usual diet, diabetic diet, low fat, low cholesterol Interval History: Ms. Antionette Mckeon is a 46-year-old female who has come in with worsening dyspnea along with orthopnea and leg edema. She was diagnosed with CHF without any acute coronary event. She is also suspected to have some COPD exacerbation. She has CKD which has not worsened during this admission.. She is on Xarelto for her DVT . beta carlos and PRASHANTH inhibitor IV Lasix and Plavix and inhalers. She was diuresed aggressively and during this admission she has almost lost 10 kg. Obviously she was not unkempt compensated acute systolic congestive congestive heart failure. Echocardiogram was done which showed 35-40% EF. Her channeler outsole was consulted who will see her in office. Her renal function have improved modestly despite diuresis. She is currently on Xarelto for previous history of DVT however her home dose was 15 mg twice a day which did not make sense therefore we have converted it to 20 mg daily. Blood pressure is elevated and in order to reduce afterload I will add hydralazine while she is already on isosorbide. She is on low-dose PRASHANTH inhibitor and the reason we are not increasing it and adding hydralazine at this time because of her renal function and while we are diuresing her with do not want to expose her renal arterioles to higher dose of Prashanth while she is relatively dehydrated. Her lung sounds clear and leg edema is gone but still has some pedal edema for channeler outsole saw her yesterday. We plan to change her Lasix to by mouth as her creatinine has a started going up. Altered that she is drinking more than 20 half liter water. Hospital course: Ms. Mckeon is a 46 year old female - Time Spent with Patient Total time spent providing and/or coordinating discharge services: Greater than 30 minutes - Constitutional Vitals: Temp Pulse Resp BP Pulse Ox 98.0 F 71 16 119/61 99 09/19/16 10:41 09/19/16 10:41 09/19/16 10:41 09/19/16 10:41 09/19/16 10:41 General appearance: Present: A&O X 3, answers questions appropriately - Head Head exam: Present: atraumatic, normocephalic - Eye Eye exam: Present: PERRL, conjuntiva pink, sclera anicteric Pupils: Present: PERRL - Neck Neck exam general surgery: Present: supple, trachea midline. Absent: lymphadenopathy - Respiratory Respiratory exam: Present: wheezes. Absent: accessory muscle use, rales, rhonchi Additional comments: Overall EXAMINATION shows good breath sounds however is still wheezing especially in the bases no refills no murmur wheezing has reduced quite significantly. On 2-1/2 L oxygen which is her baseline. - Cardiovascular Cardiovascular exam: Present: RRR, +S1, +S2. Absent: diastolic murmur, gallop, rubs, systolic murmur - GI/Abdominal GI/Abdominal exam: Present: normal bowel sounds, soft, no peritoneal signs. Absent: distended, tenderness - Extremities Exam Extremities exam: Present: warm, radial pulses palpable and symetrical. Absent : calf tenderness, cyanotic, pedal edema - Neurological Exam Neurological exam: Present: CN II-XII intact, oriented X3, no focal deficits. Absent: pronater drift, facial droop, speech deficit - Skin Skin exam: Present: dry, intact
[2016-09-19] MEDS ORDERED: Insulin LISPRO 300 UNITS/3 ML VIAL SQ ONE (21:44)
== END 2016-09-19 14:47 | disposition home or self-care (01) | DRG 194 ==
LOC: EMEROO 13:11 → 3ANU 13:11
PROVIDERS: ADMIT Nurse Practitioner Family; ATTEND Internal Medicine

== ENCOUNTER 2016-11-21 18:33 | Inpatient (IN) ==
--- NOTE | 2016-11-21 18:50 | Emergency Department Note ---
Disposition Clinical Impression: Nausea vomiting and diarrhea Disposition: Still a Patient Condition: Good Referrals: NONE,PCP [Primary Care Provider] - Forms: ED Satisfaction Letter Nausea/Vomiting/Diarrhea HPI - General Chief complaint: ED Nausea/Vomiting/Diarrhea Stated complaint: N/V, High BS Time Seen by Provider: 11/21/16 18:35 Source: patient, EMS Mode of arrival: EMS Limitations: no limitations Nursing Notes Reviewed: Yes Vital Signs Reviewed: Yes - History of Present Illness HPI Narrative: 46-year-old female history of insulin-dependent type 2 diabetes presents to the ER via EMS due to weakness nausea vomiting diarrhea and abdominal pain. She reports the symptoms started about one week ago. She states that she has been noncompliant with her insulin because of the vomiting. She reports she has been close to DKA but never diagnosed with it. She reports right-sided flank pain with radiation into her right abdomen. She denies any sick contacts at home. No dysuria or hematuria fever cough chest pain or shortness of breath. No other complaints. Pt Subjective Complaint: nausea, vomiting, diarrhea, abdominal pain Onset (ago): week(s) Description of emesis: watery Description of Diarrhea: water Associated Abdominal Pain: Yes If pain, Location of pain: flank Severity: moderate Quality: stabbing Consistency: constant Improves with: nothing Worsens with: nonthing Associated symptoms: Reports: nausea/vomiting. Denies: chest pain, fever/chills , shortness of breath - Related Data Home Medications Medication Instructions Recorded Confirmed Albuterol Sulfate [Proair Hfa] 2 puff IH Q4H PRN 06/18/16 09/15/16 Atorvastatin [Lipitor] 40 mg PO HS 06/18/16 09/15/16 Clopidogrel [Plavix] 75 mg PO DAILY 06/18/16 09/15/16 Fenofibrate [Lofibra] 160 mg PO DAILY 06/18/16 09/15/16 Gabapentin [Neurontin] 400 mg PO TID 06/18/16 09/15/16 Isosorbide MONOnitrate (24 HR) 60 mg PO DAILY 06/18/16 09/15/16 [Imdur] Metoprolol XL (24 HR) Succ [Toprol 50 mg PO DAILY 06/18/16 09/15/16 Xl] Potassium Chloride [Klor-Con 10 meq PO BID 06/18/16 09/15/16 Sprinkle] Budesonide/Formoterol 160/4.5 2 puff IH BID 08/20/16 09/15/16 [Symbicort 160/4.5] Insulin DETEMIR [Levemir Flextouch] 10 unit SQ HS 08/20/16 09/15/16 Nitroglycerin [Nitrostat] 0.4 mg SL Q5M PRN 08/20/16 09/15/16 Rivaroxaban [Xarelto] 15 mg PO BID 08/20/16 09/15/16 Previous Rx's Medication Instructions Recorded ALPRAZolam [Xanax 0.5 MG Tablet] 0.5 mg PO HS PRN #30 tablet 08/14/16 Furosemide [Lasix] 80 mg PO BID 30 Days 08/14/16 Furosemide [Lasix] 80 mg PO BIDDIURETIC #120 tablet 09/19/16 Ipratropium/Albuterol Neb [Duoneb] 3 ml IH QIDR #120 inhsol 09/19/16 Nicotine Patch [Nicoderm] 14 mg TD DAILY #20 patch.td24 09/19/16 Rivaroxaban [Xarelto] 20 mg PO 1700 tablet 09/19/16 hydrALAZINE [HydrALAZINE] 25 mg PO Q8HR #90 tablet 09/19/16 predniSONE [PredniSONE] 10 mg PO DAILY #62 tablet 09/19/16 Allergies Allergy/AdvReac Type Severity Reaction Status Date / Time Onion Allergy Intermediate Swelling Verified 08/05/16 09:37 of Lip/Tongue/Throat ciprofloxacin [From Cipro] Allergy Hives Verified 08/04/16 19:26 codeine Allergy Hives Verified 08/04/16 19:26 insulin glargine Allergy Hives Verified 08/04/16 19:26 [From Lantus] aspirin AdvReac Nausea Verified 08/04/16 22:12 All systems ED: reviewed and negative except as stated. Constitutional: Denies: fever Cardiovascular: Denies: chest pain Respiratory: Denies: dyspnea Gastrointestinal: Reports: abdominal pain, nausea, vomiting, diarrhea Genitourinary: Denies: dysuria, hematuria Past Medical History - Past Medical History Attestation: Yes The following information was validated with the patient. 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 - Social History Smoking Status: Current every day smoker Smokeless Tobacco Status: No Alcohol use: Reports: none Drug use: Reports: none Physical Exam - General Limitations: no limitations General appearance: alert, in no apparent distress - Head Head exam: atraumatic, normocephalic, normal inspection - Eye Eye exam: Present: normal appearance, EOMI - ENT ENT exam: normal exam - Neck Neck exam: Present: normal inspection, full ROM - Chest Chest inspection: Present: normal inspection, symmetric chest wall rise - Respiratory Respiratory exam: Present: normal lung sounds bilaterally - Cardiovascular Cardiovascular exam: Present: regular rate, normal rhythm, normal heart sounds - Abdominal Exam Abdominal exam: Present: soft, tenderness (Right flank tenderness to palpation. No rigidity guarding or distention.) - Extremities Exam Extremities exam: Present: normal inspection, full ROM - Expanded Upper Extremity Exam Shoulder exam: Present: normal inspection, full ROM Arm exam: Present: normal inspection, full ROM Elbow exam: Present: normal inspection, full ROM Forearm/Wrist exam: Present: normal inspection, full ROM Hand exam: Present: normal inspection, full ROM - Expanded Lower Extremity Exam Hip/Pelvis exam: Present: normal inspection, full ROM Upper leg exam: Present: normal inspection, full ROM Knee exam: Present: normal inspection, full ROM Lower leg exam: Present: normal inspection, full ROM Ankle exam: Present: normal inspection, full ROM Foot/toe exam: Present: normal inspection, full ROM - Neurological Exam Neurological exam: Present: alert, other (GCS 15. Nonfocal neurologic exam.) - Psychiatric Psychiatric exam: Present: normal affect, normal mood - Skin Skin exam: Present: warm, dry, intact, normal color Course Course Narrative: Patient seen and examined. Vital signs reviewed. We will get labs to evaluate for DKA. Patient will be signed out to nightman team Vital Signs Temperature 98 F 11/21/16 18:36 Pulse Rate 71 11/21/16 18:36 Respiratory Rate 18 11/21/16 18:36 Blood Pressure 131/55 11/21/16 18:36 O2 Sat by Pulse Oximetry 100 11/21/16 18:36 Temperature 98 F 11/21/16 18:36 Pulse Rate 71 11/21/16 18:36 Respiratory Rate 18 11/21/16 18:36 Blood Pressure 131/55 11/21/16 18:36 O2 Sat by Pulse Oximetry 100 11/21/16 18:36 Oxygen Delivery Oxygen Delivery Room Air German - German Situation: Demographics, MOA Background: Presenting Complaint, Relevant PMH, Meds, & Allergies Assessment: Vital Signs, Course and respsone to treatment, Exam Concerns, Patient/Family Expectation, Pertinant Lab Results, Outstanding Labs Recommendation: Barrier(s) to disposition, Recommendation based on pending studies, treatments, or consults S.B.A.Yoon Report Given to: Drs. Golden & Jaime Porter Repor Time: 18:54
--- NOTE | 2016-11-21 19:05 | Emergency Department Note ---
Disposition Clinical Impression: Nausea vomiting and diarrhea, Hyperosmolar non-ketotic state in patient with type 2 diabetes mellitus Hyperglycemia due to type 2 diabetes mellitus Qualifiers: Diabetes mellitus detention insulin use: with detention use Qualified Code(s): E11.65 - Type 2 diabetes mellitus with hyperglycemia Disposition: Admitted As Inpatient Condition: Good Time of Disposition: 00:17 General Adult HPI - General Chief complaint: ED Nausea/Vomiting/Diarrhea Stated complaint: N/V, High BS Time Seen by Provider: 11/21/16 18:35 Source: patient, EMS Mode of arrival: EMS Limitations: no limitations Nursing Notes Reviewed: Yes Vital Signs Reviewed: Yes - History of Present Illness HPI Narrative: Patient was signed out to me from daytime physicians Dr. Guerrero and Dr. Mancini. Please see their note for further details. Pain Scale: 10 - Related Data Home Medications Medication Instructions Recorded Confirmed Albuterol Sulfate [Proair Hfa] 2 puff IH Q4H PRN 06/18/16 09/15/16 Atorvastatin [Lipitor] 40 mg PO HS 06/18/16 09/15/16 Clopidogrel [Plavix] 75 mg PO DAILY 06/18/16 09/15/16 Fenofibrate [Lofibra] 160 mg PO DAILY 06/18/16 09/15/16 Gabapentin [Neurontin] 400 mg PO TID 06/18/16 09/15/16 Isosorbide MONOnitrate (24 HR) 60 mg PO DAILY 06/18/16 09/15/16 [Imdur] Metoprolol XL (24 HR) Succ [Toprol 50 mg PO DAILY 06/18/16 09/15/16 Xl] Potassium Chloride [Klor-Con 10 meq PO BID 06/18/16 09/15/16 Sprinkle] Budesonide/Formoterol 160/4.5 2 puff IH BID 08/20/16 09/15/16 [Symbicort 160/4.5] Insulin DETEMIR [Levemir Flextouch] 10 unit SQ HS 08/20/16 09/15/16 Nitroglycerin [Nitrostat] 0.4 mg SL Q5M PRN 08/20/16 09/15/16 Rivaroxaban [Xarelto] 15 mg PO BID 08/20/16 09/15/16 Previous Rx's Medication Instructions Recorded ALPRAZolam [Xanax 0.5 MG Tablet] 0.5 mg PO HS PRN #30 tablet 08/14/16 Furosemide [Lasix] 80 mg PO BID 30 Days 08/14/16 Furosemide [Lasix] 80 mg PO BIDDIURETIC #120 tablet 09/19/16 Ipratropium/Albuterol Neb [Duoneb] 3 ml IH QIDR #120 inhsol 09/19/16 Nicotine Patch [Nicoderm] 14 mg TD DAILY #20 patch.td24 09/19/16 Rivaroxaban [Xarelto] 20 mg PO 1700 tablet 09/19/16 hydrALAZINE [HydrALAZINE] 25 mg PO Q8HR #90 tablet 09/19/16 predniSONE [PredniSONE] 10 mg PO DAILY #62 tablet 09/19/16 Allergies Allergy/AdvReac Type Severity Reaction Status Date / Time Onion Allergy Intermediate Swelling Verified 08/05/16 09:37 of Lip/Tongue/Throat ciprofloxacin [From Cipro] Allergy Hives Verified 08/04/16 19:26 codeine Allergy Hives Verified 08/04/16 19:26 insulin glargine Allergy Hives Verified 08/04/16 19:26 [From Lantus] aspirin AdvReac Nausea Verified 08/04/16 22:12 All systems ED: reviewed and negative except as stated. 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 Guerrero and Dr. Mancini. Please see their note for further details. Antionette is a 46-year-old female history of insulin-dependent diabetes mellitus presenting with elevated blood sugar with nausea and vomiting. She admits to being noncompliant over the past week. She has some associated abdominal pain. Denies any fevers or recent illness. EKG was performed showing sinus rhythm 66 bpm with T wave inversions in lateral leads. DKA workup initiated. Troponin added as well. - Reevaluation(s) Reevaluation #1: Patient had a critical lab value troponin 0.13. She has had positive values in the past. Denies any chest pain at this time. She does report having some chest discomfort yesterday she believed was exacerbated from her vomiting. She has not taken her baby aspirin due to her nausea, 324 mg aspirin given here. Her glucose level read over 600 unported care. On her chemistry it was 750. She does not have positive serum ketones. Her anionic gap is 12. On her VBG shows a metabolic alkalosis with normal CO2. This is likely secondary to her vomiting. Her abdomen is soft and nontender. Awaiting urinalysis. Potassium has been repleted with 40mEq and a 10mEq rider. SQ Insulin 10U ordered, will not start insulin drip. She typically takes 20U in the morning and 10U in the evening. Reports noncompliance the past week. She will need admission for further management and treatment. She is in agreement with this plan. Will continue to monitor her potassium. Impression is hyperglycemia with underlying uncontrolled T2DM, HHS, and elevated troponin. Do not believe the troponin is due to ACS, will hold off on heparin at this time as she is not endorsing chest pain and likely is demand ischemia. Recommend to continue to trend troponin while on the floor during admission. Time: 20:42 - Consultations Consultation #1: Spoke with on-call hospitalist Dr. Ge, initially concern for ICU bed availability. Recommend to transfer vs. admission. After further discussion,, ok to admit for HHS and hyperglycemia with elevated troponin. No further orders at this time Vital Signs Temperature 98 F 11/21/16 18:36 Pulse Rate 71 11/21/16 18:36 Respiratory Rate 18 11/21/16 18:36 Blood Pressure 131/55 11/21/16 18:36 O2 Sat by Pulse Oximetry 100 11/21/16 18:36 Temperature 98.3 F 11/22/16 04:04 Pulse Rate 59 11/22/16 04:04 Respiratory Rate 18 11/22/16 04:04 Blood Pressure 116/39 11/22/16 04:04 O2 Sat by Pulse Oximetry 96 11/22/16 04:04 Oxygen Delivery Oxygen Delivery Room Air Medical Decision Making - Medical Records Medical records reviewed: Yes I reviewed the patient's medical records. - Lab Data Lab results reviewed: Yes I reviewed the patient's lab results. Result diagrams: 11/22/16 01:19 11/22/16 01:19 Lab Results 11/21/16 11/21/16 11/21/16 Range/Units 18:57 18:57 18:57 WBC 8.6 (4.3-11.1) K/mcL RBC 4.60 (3.82-4.97) M/mcL Hgb 12.6 (11.5-15.4) g/dL Hct 37.5 (35.3-44.9) % MCV 81.5 L (83.0-100.0) fL MCH 27.4 L (28.0-33.3) pg MCHC 33.6 (31.6-35.5) g/dL RDW 14.1 (11.5-14.5) % Plt Count 479 H (140-400) K/mcL MPV 10.1 (9.4-12.4) fL Immature Gran % 0.3 (0-4) % Seg Neutrophils % 70.0 % Lymphocytes % 19.8 % Monocytes % 7.9 % Eosinophils % 1.2 % Basophils % 0.8 % Neutrophils # 6.0 (1.6-8.9) K/mcL Lymphocytes # 1.7 (0.6-4.6) K/mcL Monocytes # 0.7 (0.0-1.3) K/mcL Eosinophils # 0.1 (0.0-0.6) K/mcL Basophils # 0.1 (0.0-0.2) K/mcL Immature Plt Fraction 3.0 (1.1-6.1) % VBG pH (7.32-7.42) pH Units VBG pCO2 (41-51) mmHg VBG pO2 (25-40) mmHg VBG HCO3 (21-27) mEq/L Sodium 126 L (136-145) mEq/L Potassium 3.3 L (3.5-4.5) mEq/L Chloride 79 L (98-109) mEq/L Carbon Dioxide 35 H (19-29) mEq/L BUN 37 H (7-20) mg/dL Creatinine 1.99 H (0.57-1.11) mg/dL Est GFR ( Amer) 32 L (> 60) Est GFR (Non-Af Amer) 27 L (> 60) BUN/Creatinine Ratio 19 (6-26) Glucose 759 H* (70-99) mg/dL POC Glucose (58-89) Est Mean Plasma Glucose 346 mg/dl Hemoglobin A1c 13.7 H ( - 5.6) % Calculated Osmolality 307 H (280-300) Calcium 9.3 (8.6-10.8) mg/dL Total Bilirubin 0.4 (0.2-1.2) mg/dL AST 20 (5-34) Units/L ALT 10 (0-55) Units/L Alkaline Phosphatase 93 (38-126) Units/L Troponin I (0-0.03) ng/mL Serum Total Protein 6.4 (6.0-8.3) g/dL Albumin 2.9 L (3.5-5.0) g/dL Globulin 3.5 (2.4-3.5) g/dL Albumin/Globulin Ratio 0.8 L (1.1-2.2) Lipase 29 (8-78) Units/L Beta-Hydroxybutyric Acd 0.24 (0.02-0.27) mmol/L 11/21/16 11/21/16 11/21/16 Range/Units 18:57 18:57 19:07 WBC (4.3-11.1) K/mcL RBC (3.82-4.97) M/mcL Hgb (11.5-15.4) g/dL Hct (35.3-44.9) % MCV (83.0-100.0) fL MCH (28.0-33.3) pg MCHC (31.6-35.5) g/dL RDW (11.5-14.5) % Plt Count (140-400) K/mcL MPV (9.4-12.4) fL Immature Gran % (0-4) % Seg Neutrophils % % Lymphocytes % % Monocytes % % Eosinophils % % Basophils % % Neutrophils # (1.6-8.9) K/mcL Lymphocytes # (0.6-4.6) K/mcL Monocytes # (0.0-1.3) K/mcL Eosinophils # (0.0-0.6) K/mcL Basophils # (0.0-0.2) K/mcL Immature Plt Fraction (1.1-6.1) % VBG pH 7.54 H (7.32-7.42) pH Units VBG pCO2 43 (41-51) mmHg VBG pO2 43 H (25-40) mmHg VBG HCO3 36.8 H (21-27) mEq/L Sodium (136-145) mEq/L Potassium (3.5-4.5) mEq/L Chloride (98-109) mEq/L Carbon Dioxide (19-29) mEq/L BUN (7-20) mg/dL Creatinine (0.57-1.11) mg/dL Est GFR ( Amer) (> 60) Est GFR (Non-Af Amer) (> 60) BUN/Creatinine Ratio (6-26) Glucose (70-99) mg/dL POC Glucose > 600 H* (58-89) Est Mean Plasma Glucose mg/dl Hemoglobin A1c ( - 5.6) % Calculated Osmolality (280-300) Calcium (8.6-10.8) mg/dL Total Bilirubin (0.2-1.2) mg/dL AST (5-34) Units/L ALT (0-55) Units/L Alkaline Phosphatase (38-126) Units/L Troponin I 0.13 H* (0-0.03) ng/mL Serum Total Protein (6.0-8.3) g/dL Albumin (3.5-5.0) g/dL Globulin (2.4-3.5) g/dL Albumin/Globulin Ratio (1.1-2.2) Lipase (8-78) Units/L Beta-Hydroxybutyric Acd (0.02-0.27) mmol/L 11/21/16 11/21/16 11/21/16 Range/Units 21:00 21:02 23:27 WBC (4.3-11.1) K/mcL RBC (3.82-4.97) M/mcL Hgb (11.5-15.4) g/dL Hct (35.3-44.9) % MCV (83.0-100.0) fL MCH (28.0-33.3) pg MCHC (31.6-35.5) g/dL RDW (11.5-14.5) % Plt Count (140-400) K/mcL MPV (9.4-12.4) fL Immature Gran % (0-4) % Seg Neutrophils % % Lymphocytes % % Monocytes % % Eosinophils % % Basophils % % Neutrophils # (1.6-8.9) K/mcL Lymphocytes # (0.6-4.6) K/mcL Monocytes # (0.0-1.3) K/mcL Eosinophils # (0.0-0.6) K/mcL Basophils # (0.0-0.2) K/mcL Immature Plt Fraction (1.1-6.1) % VBG pH (7.32-7.42) pH Units VBG pCO2 (41-51) mmHg VBG pO2 (25-40) mmHg VBG HCO3 (21-27) mEq/L Sodium (136-145) mEq/L Potassium (3.5-4.5) mEq/L Chloride (98-109) mEq/L Carbon Dioxide (19-29) mEq/L BUN (7-20) mg/dL Creatinine (0.57-1.11) mg/dL Est GFR ( Amer) (> 60) Est GFR (Non-Af Amer) (> 60) BUN/Creatinine Ratio (6-26) Glucose (70-99) mg/dL POC Glucose 512 H* 528 H* 336 H (58-89) Est Mean Plasma Glucose mg/dl Hemoglobin A1c ( - 5.6) % Calculated Osmolality (280-300) Calcium (8.6-10.8) mg/dL Total Bilirubin (0.2-1.2) mg/dL AST (5-34) Units/L ALT (0-55) Units/L Alkaline Phosphatase (38-126) Units/L Troponin I (0-0.03) ng/mL Serum Total Protein (6.0-8.3) g/dL Albumin (3.5-5.0) g/dL Globulin (2.4-3.5) g/dL Albumin/Globulin Ratio (1.1-2.2) Lipase (8-78) Units/L Beta-Hydroxybutyric Acd (0.02-0.27) mmol/L 11/21/16 11/22/16 Range/Units 23:28 00:52 WBC (4.3-11.1) K/mcL RBC (3.82-4.97) M/mcL Hgb (11.5-15.4) g/dL Hct (35.3-44.9) % MCV (83.0-100.0) fL MCH (28.0-33.3) pg MCHC (31.6-35.5) g/dL RDW (11.5-14.5) % Plt Count (140-400) K/mcL MPV (9.4-12.4) fL Immature Gran % (0-4) % Seg Neutrophils % % Lymphocytes % % Monocytes % % Eosinophils % % Basophils % % Neutrophils # (1.6-8.9) K/mcL Lymphocytes # (0.6-4.6) K/mcL Monocytes # (0.0-1.3) K/mcL Eosinophils # (0.0-0.6) K/mcL Basophils # (0.0-0.2) K/mcL Immature Plt Fraction (1.1-6.1) % VBG pH (7.32-7.42) pH Units VBG pCO2 (41-51) mmHg VBG pO2 (25-40) mmHg VBG HCO3 (21-27) mEq/L Sodium (136-145) mEq/L Potassium (3.5-4.5) mEq/L Chloride (98-109) mEq/L Carbon Dioxide (19-29) mEq/L BUN (7-20) mg/dL Creatinine (0.57-1.11) mg/dL Est GFR ( Amer) (> 60) Est GFR (Non-Af Amer) (> 60) BUN/Creatinine Ratio (6-26) Glucose (70-99) mg/dL POC Glucose 322 H 251 H (58-89) Est Mean Plasma Glucose mg/dl Hemoglobin A1c ( - 5.6) % Calculated Osmolality (280-300) Calcium (8.6-10.8) mg/dL Total Bilirubin (0.2-1.2) mg/dL AST (5-34) Units/L ALT (0-55) Units/L Alkaline Phosphatase (38-126) Units/L Troponin I (0-0.03) ng/mL Serum Total Protein (6.0-8.3) g/dL Albumin (3.5-5.0) g/dL Globulin (2.4-3.5) g/dL Albumin/Globulin Ratio (1.1-2.2) Lipase (8-78) Units/L Beta-Hydroxybutyric Acd (0.02-0.27) mmol/L - Radiology Data Radiology results reviewed: Yes I reviewed the patient's radiology results. Chest X-Ray 11/21/16 21:54 IMPRESSION: No acute process. D/ / Trisha Jacome MD / Trisha Jacome MD Interpreting Provider: Trisha Jacome MD - EKG Data EKG #1 EKG attestation: Yes I reviewed and interpreted this EKG. EKG results narrative: EKG performed 184 normal sinus rhythm [address] elevations or depression. New T wave inversion seen in V3-V6. Voltage criteria for left ventricular hypertrophy. Compared to old EKG performed 09/15/2016 which showed new T-wave changes. This is an abnormal EKG. Patient denies chest pain at this time. Critical Care Time Critical Care Time: Yes Total Critical Care Time: 45 Attestation: Critical care performed: Time is exclusive of separately billable procedures. Time includes: direct patient care, patient reassessment, coordination of patient care, interpretation of data (laboratory data, radiology data, and respiratory data), review of patient's medical records, medical consultation and documentation of patient care. Procedures included in critical care time: Procedures excluded from critical care time: Attestation Statement - Attestation Attestation: I, Teodoro Sandoval MD, personally evaluated this patient and discussed their management with the resident physician. I reviewed the resident's note and agree with the documented findings, medical decision making, and plan of care. This patient was signed out at shift change from Dr. Guerrero and Dr. Mancini. Please refer to their notes for complete details of the history and physical examination. 46-year-old female presents to the emergency department with a complaint of nausea and vomiting and diarrhea for about one week prior to arrival. Some crampy diffuse abdominal pain. Patient is diabetic and states that she has not been taking her insulin because of the vomiting. On examination patient is a well-developed well-nourished female in no acute distress. She is alert and oriented 3. There is no cyanosis or diaphoresis. Head normal size and shape with no apparent injuries or abnormalities. Mucous members are moist. Neck is supple. Breath sounds clear and equal bilaterally. Heart regular rate and rhythm. Abdomen soft with mild diffuse tenderness. Normal bowel sounds. No tympany or distention. No guarding or rebound tenderness. No CVA tenderness. Labs reviewed. WBC normal. Glucose 759. PH 7.54. Serum ketones negative. Elevated troponin at 0.13. The hospitalist, Dr. Ge, was consulted and accepted admission of the patient.
[2016-11-21 19:08] LABS: Basophils # 0.1 K/mcL (0.0-0.2); Basophils % 0.8 %; Eosinophils # 0.1 K/mcL (0.0-0.6); Eosinophils % 1.2 %; Hematocrit 37.5 % (35.3-44.9); Hemoglobin 12.6 g/dL (11.5-15.4); Immature Granulocytes % 0.3 % (0-4); Lymphocytes # 1.7 K/mcL (0.6-4.6); Lymphocytes % 19.8 %; Mean Corpuscular HGB Conc 33.6 g/dL (31.6-35.5); Mean Corpuscular Hemoglobin 27.4 pg (28.0-33.3); Mean Corpuscular Volume 81.5 fL (83.0-100.0); Mean Platelet Volume 10.1 fL (9.4-12.4); Monocytes # 0.7 K/mcL (0.0-1.3); Monocytes % 7.9 %; Platelet Count 479 K/mcL (140-400); Red Cell Distribution Width 14.1 % (11.5-14.5)
[2016-11-21 19:09] LABS: VBG HCO3 36.8 mEq/L (21-27); VBG PH 7.54 pH Units (7.32-7.42)
[2016-11-21 19:18] LABS: Hemoglobin A1C 13.7 %
[2016-11-21 19:25] LABS: Albumin 2.9 g/dL (3.5-5.0); Albumin/Globulin Ratio 0.8 (1.1-2.2); Bilirubin,Total 0.4 mg/dL (0.2-1.2); Calcium 9.3 mg/dL (8.6-10.8); Globulin 3.5 g/dL (2.4-3.5); Potassium 3.3 mEq/L (3.5-4.5); Total Protein 6.4 g/dL (6.0-8.3)
[2016-11-21 19:28] LABS: Beta-Hydroxybutyric Acid 0.24 mmol/L (0.02-0.27)
[2016-11-21] MEDS: 0.9 % Sodium Chloride 1,000 ML IVC SCH ×2 (19:31→20:23)
[2016-11-21] MEDS ORDERED: Aspirin 81 MG TAB.CHEW PO STA (19:41)
[2016-11-21] MEDS ORDERED: *HR* Dextrose 50 % in Water (Syg) 50 ML SYRINGE IVP PRN (19:56)
[2016-11-21] MEDS ORDERED: Insulin Regular, Human 100 UNIT/ML SQ ONE (19:57)
[2016-11-22] MEDS ORDERED: *HR* Heparin 5,000 UNIT/ML VIAL IVP PRN ×2 (00:57)
[2016-11-22] MEDS ORDERED: *HR* Heparin 5,000 UNIT/ML VIAL IVP ONE (00:57)
[2016-11-22] MEDS ORDERED: Heparin 25,000 UNIT/500 ML D5W 25,000 UNIT/500 ML MLS IVC SCH ×2 (01:00→09:15)
[2016-11-22] MEDS ORDERED: *HR* Morphine 2 MG/ML SYRINGE IVP PRN (01:04)
[2016-11-22] MEDS ORDERED: Naloxone 0.4 MG/ML INJ IVP PRN (01:04)
[2016-11-22] MEDS ORDERED: Ondansetron 4 MG/2 ML VIAL IVP PRN (01:04)
[2016-11-22] MEDS ORDERED: *HR* Dextrose 50 % in Water (Syg) 50 ML SYRINGE IVP PRN ×3 (01:04→01:32)
[2016-11-22] MEDS ORDERED: 0.9 % Sodium Chloride w KCl 20 MEQ/1,000 ML MLS IVC SCH (01:15)
[2016-11-22] MEDS ORDERED: D5% in Water 1,000 ML IVC PRN (01:19)
[2016-11-22] MEDS ORDERED: Dextrose Gel 15 GM PO PRN ×2 (01:19)
[2016-11-22] MEDS ORDERED: Nitroglycerin 0.4 MG TAB.SUBL SL PRN (01:20)
[2016-11-22 01:26] LABS: Hematocrit 32.7 % (35.3-44.9); Mean Corpuscular Hemoglobin 27.1 pg (28.0-33.3); Mean Corpuscular Volume 82.2 fL (83.0-100.0); Mean Platelet Volume 9.8 fL (9.4-12.4); Platelet Count 423 K/mcL (140-400); Red Blood Count 3.98 M/mcL (3.82-4.97); Red Cell Distribution Width 13.9 % (11.5-14.5)
[2016-11-22 01:28] LABS: Hemoglobin 10.8 g/dL (11.5-15.4)
[2016-11-22] MEDS ORDERED: Hydrocortisone Sodium Succ 100 MG/2 ML VIAL IVP SCH (01:30)
[2016-11-22 01:34] LABS: INR 1.1; Prothrombin Time 11.3 Seconds (9.4-12.1)
[2016-11-22 01:37] LABS: Activated Partial Thrombo Time 28.6 Seconds (26.0-36.0)
[2016-11-22] MEDS ORDERED: D5% in 0.9% NACL w KCl 20 MEQ/1,000 ML MLS IVC SCH (01:45)
[2016-11-22] MEDS ORDERED: Insulin Human Regular 100 UNIT in 0.9 % Sodium Chloride 100 ML IVC SCH (01:45)
--- NOTE | 2016-11-22 01:46 | Internal Med History&Physical ---
Date of Encounter: 11/22/16 Time of Encounter: 01:00 Assessment and Plan (1) Hyperosmolar non-ketotic state in patient with type 2 diabetes mellitus Current visit: Yes Status: Acute 1. Will continue IVF (D5 0.9NS w 20 MEQ KCL/liter) hydration with cautious I/O monitoring given ischemic cardiomyopathy and systolic dysfunction. 2. Insulin drip with hourly glucose checks. 3. npo. 4. Follow labs and electrolytes with close monitoring. (2) NSTEMI (non-ST elevated myocardial infarction) Current visit: Yes Status: Acute 1. Will cycle troponins and EKG's. 2. Will order ECHO. 3. Heparin gtt per protocol. 4. Patient received aspirin in ER. 5. Continue home meds as appropriate. 6. Hold BB for now due to relative bradycardia. (3) Adrenal insufficiency due to corticosteroid withdrawal Current visit: Yes Status: Acute 1. Patient unsure if she is on chronic Prednisone as listed in her med list. 2. Strong suspicion of of adrenal insufficiency/crisis with protracted N/V/D. 3. Will treat with Solu-Cortef until med list can be verified with her pharmacy in the morning. (4) DVT (deep venous thrombosis) Current visit: No Status: Acute 1. Patient missed 5 days of Xarelto. 2. Strong suspicion for PE given clinical presentation, NSTEMI, and respiratory alkalosis. 3. Will treat with IV Heparin gtt for now until PE can be ruled out. 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 Mckeon is a 46 year old female who presents with a 5 day history of protracted nausea, vomiting, diarrhea, chest pain, shortness of breath, and malaise. She came to the ER tonight and was found to have evidence of hyperosmolar hyperglycemic state. She received a dose of insulin in the ER along with 2 L of fluid bolus and then admitted to the hospitalist service. Of note, her troponin was 0.13 and EKG was suggestive of ischemia. She did receive a dose of aspirin in the ER as well. Upon my assessment of the patient, I reviewed her EKG which showed significant ischemic changes EKG. She is complaining of chest pain which she has had for the last several days. She also has some shortness of breath. She was recently diagnosed with a DVT in her left arm and had been on Xarelto. However , she has missed the last 5 days of her medications. Her medication list is not updated and she cannot confirm her medications. There is a listing for prednisone she takes daily. She is not quite sure if she takes the medication or not. Given her protracted nausea, vomiting, and diarrhea, I am quite concerned for adrenal insufficiency and/or crisis. Additionally, given that she missed the last 5 days of her anticoagulation, has known left upper extremity DVT, and currently hasa respiratory alkalosis on her blood gas, I am concerned for pulmonary embolus. Therefore, we will treat her with IV heparin drip until we can confirm and/or refute DVT or PE. Past Med Surg Social Fam HX - Past Medical History Attestation: Yes The following information was validated with the patient. Source: patient, old records reviewed Medical history: cardiomyopathy, cirrhosis, CHF, COPD, coronary artery disease, CVA, DVT, diabetes, peripheral artery disease, renal disease, TIA Psychiatric history: anxiety, depression - Past Surgical History Surgical History: appendectomy, cholecystectomy, hysterectomy, orthopedic, other , other - Social History Smoking Status: Current every day smoker Smokeless Tobacco Status: No Alcohol use: none Drug use: none Current living situation: Home Activity Level: Independent ambulation - Family History Father Adopted: No Family Member Ethnicity: Non- Living Status: Hx Family Cardiac Disorders: Yes Hx Family Respiratory Disorders: Yes Hx Family Cancer: Yes Hx Family Endocrine Disorder: Yes Hx Family Neurologic Disorders: No Internal Medicine - H&P: Meds Albuterol Sulfate [Proair Hfa] 2 puff IH Q4H PRN 06/18/16 [History] Atorvastatin [Lipitor] 40 mg PO HS 06/18/16 [History] Clopidogrel [Plavix] 75 mg PO DAILY 06/18/16 [History] Fenofibrate [Lofibra] 160 mg PO DAILY 06/18/16 [History] Gabapentin [Neurontin] 400 mg PO TID 06/18/16 [History] Isosorbide MONOnitrate (24 HR) [Imdur] 60 mg PO DAILY 06/18/16 [History] Metoprolol XL (24 HR) Succ [Toprol Xl] 50 mg PO DAILY 06/18/16 [History] Potassium Chloride [Klor-Con Sprinkle] 10 meq PO BID 06/18/16 [History] ALPRAZolam [Xanax 0.5 MG Tablet] 0.5 mg PO HS PRN #30 tablet 08/14/16 [Rx] Furosemide [Lasix] 80 mg PO BID 30 Days 08/14/16 [Rx] Budesonide/Formoterol 160/4.5 [Symbicort 160/4.5] 2 puff IH BID 08/20/16 [ History] Insulin DETEMIR [Levemir Flextouch] 10 unit SQ HS 08/20/16 [History] Nitroglycerin [Nitrostat] 0.4 mg SL Q5M PRN 08/20/16 [History] Rivaroxaban [Xarelto] 15 mg PO BID 08/20/16 [History] Furosemide [Lasix] 80 mg PO BIDDIURETIC #120 tablet 09/19/16 [Rx] Ipratropium/Albuterol Neb [Duoneb] 3 ml IH QIDR #120 inhsol 09/19/16 [Rx] Nicotine Patch [Nicoderm] 14 mg TD DAILY #20 patch.td24 09/19/16 [Rx] Rivaroxaban [Xarelto] 20 mg PO 1700 tablet 09/19/16 [Rx] hydrALAZINE [HydrALAZINE] 25 mg PO Q8HR #90 tablet 09/19/16 [Rx] predniSONE [PredniSONE] 10 mg PO DAILY #62 tablet 09/19/16 [Rx] 3 Allergy/AdvReac Type Severity Reaction Status Date / Time Onion Allergy Intermediate Swelling Verified 08/05/16 09:37 of Lip/Tongue/Throat ciprofloxacin [From Cipro] Allergy Hives Verified 08/04/16 19:26 codeine Allergy Hives Verified 08/04/16 19:26 insulin glargine Allergy Hives Verified 08/04/16 19:26 [From Lantus] aspirin AdvReac Nausea Verified 08/04/16 22:12 - Constitutional Constitutional: lethargy, no chills, no fever(s) - EENT Eyes: no blurry vision, no change in vision Ears: no ear pain, no tinnitus Nose, mouth and throat: no nasal congestion, no nasal discharge, no sinus pressure, no sore throat - Cardiovascular Cardiovascular ROS IM: chest pain, diaphoresis, dyspnea - Respiratory Respiratory: no cough, no hemoptysis, no wheezing, no chest congestion, no excessive phlegm production - Gastrointestinal Gastrointestinal: diarrhea, nausea, vomiting, no abdominal pain, no hematemesis , no hematochezia, no melena - Genitourinary Genitourinary: no dysuria, no flank pain, no hematuria - Musculoskeletal Musculoskeletal ROS IM: no arthralgias, no back pain - Integumentary Integumentary IM: no rash, no jaundice - Neurological Neurological ROS: no dizziness, no focal weakness, no frequent falls, no headache(s) - Psychiatric Psychiatric: no anxiety, no depression - Endocrine Endocrine IM: polydipsia, polyuria, no polyphagia - Hematologic/Lymphatic Hematologic/Lymphatic: easy bruising, no lymphadenopathy - Allergic/Immunologic Allergic/Immunologic: GI upset with certain foods, no wheezing - Constitutional Vitals: Temp Pulse Resp BP Pulse Ox 97.9 F 63 18 101/53 99 11/22/16 01:04 11/22/16 01:20 11/22/16 01:20 11/22/16 01:20 11/22/16 01:04 General appearance: Present: cooperative, A&O X 3, severe distress (dehyrated), answers questions appropriately - Head Head exam: Present: atraumatic, normal inspection - Eye Eye exam: Present: EOMI, normal appearance, PERRL. Absent: scleral icterus Pupils: Present: normal accommodation - ENT ENT exam: Present: mucous membranes dry, normal exam - Neck Neck exam general surgery: Present: full ROM, supple. Absent: lymphadenopathy, tenderness, nuchal rigidity - Expanded Neck Exam Neck exam: Absent: carotid bruit - Respiratory Respiratory exam: Present: accessory muscle use, CTAB. Absent: chest wall tenderness, rales, rhonchi, wheezes - Cardiovascular Cardiovascular exam: Present: RRR, +S1, +S2. Absent: diastolic murmur, JVD, systolic murmur Additional comments: cap refill delayed ~ 4 seconds - GI/Abdominal GI/Abdominal exam: Present: normal bowel sounds, soft. Absent: hepatomegaly, mass, splenomegaly, tenderness - Extremities Exam Extremities exam: Present: full ROM, warm. Absent: calf tenderness, joint swelling, pedal edema - Back Exam Back exam: Present: normal inspection. Absent: CVA tenderness (L), CVA tenderness (R) - Neurological Exam Neurological exam: Present: alert, CN II-XII intact, oriented X3, no focal deficits - Psychiatric Psychiatric exam: Present: normal affect, normal mood - Skin Skin exam: Present: dry, warm Internal Med - H&P Results - Labs CBC & Chem 7: 11/22/16 01:19 11/21/16 18:57 Labs: Short CBC 11/22/16 Range/Units 01:19 WBC 11.1 (4.3-11.1) K/mcL Hgb 10.8 L D (11.5-15.4) g/dL Hct 32.7 L (35.3-44.9) % Plt Count 423 H (140-400) K/mcL - EKG Data -: EKG Interpreted by Myself - EKG Data Prior EKG available for review: yes When compared to previous EKG: there are significant changes Interpretation IM: suggestive of ischemia EKG comments: 11/22/16 01:50 NSR; ST-T depression and flipped T waves laterally - Diagnostic Studies Chest x-ray Status: image reviewed by me (negative) - VTE Reasons for not Prescribing Prophylaxis: Not indicated-Anticoagulated or INR therapeutic
[2016-11-22 02:56] LABS: Basophils # 0.1 K/mcL (0.0-0.2); Basophils % 0.7 %; Eosinophils # 0.3 K/mcL (0.0-0.6); Eosinophils % 2.8 %; Hemoglobin 10.8 g/dL (11.5-15.4); Immature Granulocytes % 0.6 % (0-4); Lymphocytes # 2.7 K/mcL (0.6-4.6); Lymphocytes % 25.3 %; Mean Corpuscular HGB Conc 32.7 g/dL (31.6-35.5); Mean Corpuscular Hemoglobin 27.1 pg (28.0-33.3); Mean Corpuscular Volume 82.7 fL (83.0-100.0); Mean Platelet Volume 10.1 fL (9.4-12.4); Monocytes # 0.9 K/mcL (0.0-1.3); Monocytes % 8.4 %; Neutrophils # 6.6 K/mcL (1.6-8.9); Platelet Count 428 K/mcL (140-400); Red Blood Count 3.99 M/mcL (3.82-4.97); Segmented Neutrophils % 62.2 %
[2016-11-22 03:08] LABS: Albumin 2.6 g/dL (3.5-5.0); Albumin/Globulin Ratio 0.8 (1.1-2.2); Bilirubin,Total 0.3 mg/dL (0.2-1.2); Calcium 8.3 mg/dL (8.6-10.8); Chol/HDL Ratio 5.7 (0-4.9); Globulin 3.4 g/dL (2.4-3.5)
[2016-11-22] MEDS: Ipratropium/Albuterol Neb 3 ML IH SCH ×3 (05:17→15:53)
[2016-11-22] MEDS ORDERED: Insulin LISPRO 300 UNITS/3 ML VIAL SQ SCH ×4 (07:30→21:00)
[2016-11-22] MEDS ORDERED: Potassium Chloride Elixir 20 MEQ/15 ML UDC PO ONE (07:53)
[2016-11-22] MEDS ORDERED: Insulin DETEMIR 100 UNIT/ML X5UNITS SQ SCH ×3 (09:00→21:00)
[2016-11-22] MEDS: Insulin LISPRO 300 UNITS/3 ML VIAL SQ SCH ×5 (09:17→17:08)
--- NOTE | 2016-11-22 10:38 | Event Note ---
<Krishna Michaud G - Last Filed: 11/22/16 13:14> Date of Encounter: 11/22/16 Time of Encounter: 10:32 Patient seen and examined at bedside. Patient was admitted overnight for persistent nausea and vomiting which did not allow her to take her medicine. She reports that she also did not take her insulin and her blood sugar was 759 on presentation. At the time the patient states that she feels normal. She feels like she is at her baseline. She does report that she has some chest pain yesterday but is unable to further characterize it. She is a poor historian due to history of several strokes. Physical exam: Gen.: Patient is awake and alert and oriented 3. She is in no acute distress. Heart: Regular rate and rhythm, no murmurs or rubs, gallops. Lungs: Diminished breath sounds throughout, no rales, rhonchi, wheezes. Abdomen: Soft, nontender, nondistended. Normal active bowel sounds. Neuro: Strength 4 out of 5 in the upper extremities bilaterally which the patient states is normal for her. She has a mild expressive aphasia. Recall seem somewhat diminished. Assessment and plan: #1 Hyperglycemia: Likely related to medication noncompliance. Patient was on insulin drip overnight. This has been discontinued and patient been transitioned back to her subcutaneous insulin. Instituted diet and will continue to monitor blood sugars. Hemoglobin A1c is 13.7 indicative of poor glycemic control. #2 Nausea and vomiting: Resolved at this time. Possible viral gastroenteritis. Gastroparesis in the setting of uncontrolled diabetes is also concerned however the patient is tolerating a diet well this time. ABGs indicative of metabolic alkalosis likely related to vomiting. Continue symptomatic treatment. Patient has been fluid hydrated. Fluids have been stopped given that the patient has a known EF of 35-40%. <Kike De Jesus H - Last Filed: 11/22/16 15:07> Date of Encounter: 11/22/16 transitioned to sub Q insulin I examined this patient and my medical decision-making was reviewed with the Resident Physician. I agree with the documented findings, disposition and treatment plan as described except to the extent set forth below.
[2016-11-22] MEDS: Budesonide/Formoterol 160/4.5 MDI IH SCH (10:50)
[2016-11-22] MEDS: Gabapentin 400 MG CAPSULE PO SCH ×2 (15:40→20:22)
[2016-11-22] MEDS: Furosemide 40 MG TABLET PO SCH (17:07)
[2016-11-22] MEDS ORDERED: *HR* Rivaroxaban 10 MG TABLET PO SCH (18:00)
--- NOTE | 2016-11-22 18:09 | Electrocardiograph Report ---
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
[2016-11-22] MEDS: Acetaminophen 325 MG TABLET PO PRN (20:22)
[2016-11-23] MEDS: Ipratropium/Albuterol Neb 3 ML IH SCH ×2 (00:13→04:03)
[2016-11-23] MEDS: Budesonide/Formoterol 160/4.5 MDI IH SCH (00:14)
[2016-11-23 07:20] VITALS: BP 105/65
[2016-11-23 07:31] LABS: Basophils # 0.1 K/mcL (0.0-0.2); Basophils % 0.9 %; Eosinophils # 0.5 K/mcL (0.0-0.6); Eosinophils % 5.3 %; Hematocrit 32.2 % (35.3-44.9); Hemoglobin 10.3 g/dL (11.5-15.4); Immature Granulocytes % 0.6 % (0-4); Lymphocytes # 2.3 K/mcL (0.6-4.6); Lymphocytes % 26.8 %; Mean Corpuscular Hemoglobin 26.7 pg (28.0-33.3); Mean Corpuscular Volume 83.4 fL (83.0-100.0); Mean Platelet Volume 9.9 fL (9.4-12.4); Monocytes # 0.7 K/mcL (0.0-1.3); Monocytes % 7.7 %; Neutrophils # 5.1 K/mcL (1.6-8.9); Platelet Count 400 K/mcL (140-400); Red Blood Count 3.86 M/mcL (3.82-4.97); Red Cell Distribution Width 14.2 % (11.5-14.5); Segmented Neutrophils % 58.7 %
[2016-11-23 07:49] LABS: Calcium 8.2 mg/dL (8.6-10.8); Potassium 4.2 mEq/L (3.5-4.5)
[2016-11-23] MEDS: Furosemide 40 MG TABLET PO SCH (08:39)
[2016-11-23] MEDS: Insulin LISPRO 300 UNITS/3 ML VIAL SQ SCH ×2 (08:40)
[2016-11-23] MEDS: Acetaminophen 325 MG TABLET PO PRN (08:47)
--- NOTE | 2016-11-23 08:48 | Discharge Summary ---
Addendum entered and electronically signed by Krishna Michaud DO 11/23/16 09:54: Patient no longer takes xarelto as this has been discontinued because she completed treatment for DVT. Have instructed patient to discontinue and follow up with PCP Original Note: <Krishna Michaud - Last Filed: 11/23/16 08:41> Date of Encounter: 11/23/16 Time of Encounter: 08:41 - Discharge Diagnosis (1) Nausea vomiting and diarrhea Priority: Primary Status: Resolved (2) DM type 2 with diabetic peripheral neuropathy Priority: Primary Status: Chronic (3) Psgcy-ud-gthoclz renal failure Priority: Secondary Status: Resolved Qualifiers: Acute renal failure type: unspecified Chronic kidney disease stage: stage 3 (moderate) Qualified Code(s): N17.9 - Acute kidney failure, unspecified; N18.3 - Chronic kidney disease, stage 3 (moderate) (4) Congestive heart failure Priority: Secondary Status: Chronic Qualifiers: Congestive heart failure type: combined Congestive heart failure chronicity : chronic Qualified Code(s): I50.42 - Chronic combined systolic (congestive) and diastolic (congestive) heart failure - Discharge Medications Prescriptions: Ondansetron ODT [Zofran ODT] 4 mg SL Q8HR PRN #20 tab.rapdis PRN Reason: Nausea And Vomiting Home Medications: Atorvastatin [Lipitor] 40 mg PO HS 06/18/16 [History] Clopidogrel [Plavix] 75 mg PO DAILY 06/18/16 [History] Fenofibrate [Lofibra] 160 mg PO DAILY 06/18/16 [History] Gabapentin [Neurontin] 400 mg PO TID 06/18/16 [History] Isosorbide MONOnitrate (24 HR) [Imdur] 60 mg PO DAILY 06/18/16 [History] Metoprolol XL (24 HR) Succ [Toprol Xl] 50 mg PO DAILY 06/18/16 [History] Potassium Chloride [Klor-Con Sprinkle] 10 meq PO BID 06/18/16 [History] Budesonide/Formoterol 160/4.5 [Symbicort 160/4.5] 2 puff IH BID 08/20/16 [ History] Nitroglycerin [Nitrostat] 0.4 mg SL Q5M PRN 08/20/16 [History] Furosemide [Lasix] 80 mg PO BIDDIURETIC #120 tablet 09/19/16 [Rx] Albuterol Sulfate [Albuterol Inhaler] 2 puff IH Q4HR PRN 11/22/16 [History] Lisinopril 2.5 mg PO DAILY 11/22/16 [History] Insulin DETEMIR [Levemir Flextouch] 10 unit SQ HS #1 11/23/16 [Rx] Insulin DETEMIR [Levemir] 20 unit SQ QAM 11/23/16 [Rx] Ipratropium/Albuterol Neb [Duoneb] 3 ml IH QIDR inh 11/23/16 [Rx] Ondansetron ODT [Zofran ODT] 4 mg SL Q8HR PRN #20 tab.rapdis 11/23/16 [Rx] Rivaroxaban [Xarelto] 20 mg PO 1800 tab 11/23/16 [Rx] Allergies/Adverse Reactions: 3 Allergy/AdvReac Type Severity Reaction Status Date / Time Onion Allergy Intermediate Swelling Verified 11/22/16 13:27 of Lip/Tongue/Throat ciprofloxacin [From Cipro] Allergy Hives Verified 11/22/16 13:27 codeine Allergy Hives Verified 11/22/16 13:27 insulin glargine Allergy Hives Verified 11/22/16 13:27 [From Lantus] aspirin AdvReac Nausea Verified 11/22/16 13:27 Procedures/tests Complete & Pending: Procedures Performed prior 72 hours Category Date Time Status EV limited echocardiogram Routine Y 11/22/16 01:13 Completed Date of admission: 11/22/16 01:04 Primary care physician: PCP NONE Discharging clinician: Krishna Michaud Anticipated date of discharge: 11/23/16 - Patient Status Disposition: Home, Self-Care Condition: Good Functional capacity at discharge: uses cane/walker Overall status at discharge: patient is progressing back to baseline - Discharge Instructions Instructions: Ondansetron (By mouth), Myocardial Infarction (DC) Follow Up With: Hetal Mcallister DO [Resident] - 11/29/16 3:20 pm (1-2 weeks) Additional Instructions: Please follow-up with your primary care physician as scheduled. Please resume your home medications. Please follow a diabetic diet. Please return for any new or worsening symptoms. - Diet and Activity Activity: increase activity as tolerated Diet: diabetic diet, low salt diet Interval History: Patient seen and examined at bedside. Patient states that she feels pretty good. She has no complaints at this time. She states that she feels back to normal. She is no longer having nausea and vomiting. Hospital course: Ms. Mckeon is a 46 year old female with history of CVA, CAD, diabetes type 2 presents with nausea and vomiting. Patient states that she had been nauseous and vomiting for one week. She states that she was unable to take any of her medications and did not take her insulin. When she was in the emergency department her blood sugar was 759. Patient was started on insulin drip and her blood sugar corrected quickly overnight. Patient was transitioned back to subcutaneous insulin. Patient's blood sugar has been running in the 200s to low 300s which given her A1c of 13.7 is where she has been running at home. Patient's symptoms had completely resolved and patient felt like she is back at baseline. Patient was tolerating diet well and had no nausea or vomiting. Patient was counseled on the importance of taking her basal insulin even if she is not feeling well if she is not eating just to cutback the dose. Patient will be discharged home in stable condition. - Time Spent with Patient Total time spent providing and/or coordinating discharge services: 40 minutes - Constitutional Vitals: Temp Pulse Resp BP Pulse Ox 97.4 F L 73 16 105/65 99 11/23/16 07:18 11/23/16 07:18 11/23/16 07:18 11/23/16 07:18 11/23/16 07:18 General appearance: Present: cooperative, A&O X 3, severe distress (dehyrated), answers questions appropriately - Respiratory Respiratory exam: Present: decreased breath sounds. Absent: rales, respiratory distress, rhonchi, wheezes, tachypnea - Cardiovascular Cardiovascular exam: Present: RRR. Absent: gallop, rubs, systolic murmur - GI/Abdominal GI/Abdominal exam: Present: normal bowel sounds, soft. Absent: distended, tenderness - Extremities Exam Extremities exam: Present: warm. Absent: pedal edema, tenderness - Neurological Exam Neurological exam: Present: alert, CN II-XII intact, oriented X3, no focal deficits (No new deficits, at baseline.). Absent: altered - VTE Reasons for not Prescribing Prophylaxis: Not indicated-Anticoagulated or INR therapeutic <Eduardo Clemente P - Last Filed: 11/23/16 18:36> Date of Encounter: 11/23/16 Procedures/tests Complete & Pending: Procedures Performed prior 72 hours Category Date Time Status EV limited echocardiogram Routine Y 11/22/16 01:13 Completed Date of admission: 11/22/16 01:04 Primary care physician: PCP NONE Hospital course: Ms. Mckeon is a 46 year old female - Time Spent with Patient Total time spent providing and/or coordinating discharge services: - Constitutional Vitals: Temp Pulse Resp BP Pulse Ox 97.4 F L 73 16 105/65 99 11/23/16 07:18 11/23/16 07:18 11/23/16 07:18 11/23/16 07:18 11/23/16 07:18 - Attending Attestation I examined this patient and my medical decision-making was reviewed with the Resident Physician. I agree with the documented findings, disposition and treatment plan as described except to the extent set forth below.
[2016-11-23] MEDS ORDERED: Isosorbide MONOnitrate (24 HR) 60 MG TAB.ER.24H PO SCH (09:00)
[2016-11-23] MEDS ORDERED: Metoprolol XL (24 HR) Succ 50 MG TAB.ER.24H PO SCH (09:00)
== END 2016-11-23 10:26 | disposition home or self-care (01) | DRG 420 ==
LOC: EMEROO 18:33 → ICNU 18:33 → SUATTDRO 11-22 01:04 → 2ANU 11-22 16:57
PROVIDERS: ADMIT Pediatrics; ATTEND Internal Medicine

== ENCOUNTER 2016-12-20 15:29 | Observation (INO) ==
[2016-12-20 18:50] LABS: Basophils # 0.1 K/mcL (0.0-0.2); Basophils % 0.8 %; Eosinophils # 0.2 K/mcL (0.0-0.6); Eosinophils % 2.1 %; Hematocrit 35.3 % (35.3-44.9); Hemoglobin 11.9 g/dL (11.5-15.4); Immature Granulocytes % 0.6 % (0-4); Lymphocytes # 2.5 K/mcL (0.6-4.6); Lymphocytes % 24.8 %; Mean Corpuscular HGB Conc 33.7 g/dL (31.6-35.5); Mean Corpuscular Hemoglobin 28.5 pg (28.0-33.3); Mean Corpuscular Volume 84.4 fL (83.0-100.0); Mean Platelet Volume 9.8 fL (9.4-12.4); Monocytes # 0.7 K/mcL (0.0-1.3); Monocytes % 7.1 %; Neutrophils # 6.4 K/mcL (1.6-8.9); Platelet Count 446 K/mcL (140-400); Red Blood Count 4.18 M/mcL (3.82-4.97); Red Cell Distribution Width 14.2 % (11.5-14.5); Segmented Neutrophils % 64.6 %
[2016-12-20 19:06] LABS: Calcium 9.3 mg/dL (8.6-10.8); Potassium 4.3 mEq/L (3.5-4.5)
[2016-12-20] MEDS ORDERED: Aspirin 81 MG TAB.CHEW PO ONE (19:29)
[2016-12-20 19:43] LABS: Bilirubin,Urine Negative (Negative); Blood,Urine Negative (Negative); Clarity,Urine Cloudy (Clear); Color,Urine Yellow (Yellow); Glucose,Urine (UA) >=1000 mg/dL (Normal); Ketones,Urine Negative (Negative); Leukocyte Esterase,Urine Negative (Negative); Nitrite,Urine Negative (Negative); Protein,Urine >=300 mg/dL (Neg-Trace); Specific Gravity,Urine 1.023 (1.010-1.025); Urobilinogen,Urine Normal (Normal)
--- NOTE | 2016-12-20 19:45 | Emergency Department Note ---
Disposition Clinical Impression: Neurological deficit present, Chest pain of uncertain etiology, Fall Disposition: Admitted As Inpatient Condition: Fair Referrals: NONE,PCP [Primary Care Provider] - Forms: ED Satisfaction Letter Time of Disposition: 21:18 Neuro HPI - General Chief Complaint: ED Fall Stated Complaint: Fall Head Injury / No loc / + Blood Thinner Time Seen by Provider: 12/20/16 19:16 Source: patient Limitations: no limitations Nursing Notes Reviewed: Yes Vital Signs Reviewed: Yes - History of Present Illness HPI Narrative: Ms. Mckeon, a 46yo female, presents from home via EMS for evaluation after fall. Occurred at 04:00 this morning. Patient is wheelchair-bound secondary to quantity 7 strokes most recent was April of this year. She has chronic sequelae of bilateral lower extremity weakness, decrease in sensation, generalized muscle wasting, and reduced upper extremity strength. Patient also history has a history of multiple MIs. Patient awoke this morning to urinate and was transitioning from the toilet back to her wheelchair when she experienced left-sided dull chest pain and her strength gave out causing her to fall backwards striking the lip of the toilet with her back neck and head. Since then, she has noticed increased generalized weakness, difficulty finding her words and thoughts, difficulty in enounciating her words. - Related Data Home Medications: Home Medications Medication Instructions Recorded Confirmed Atorvastatin [Lipitor] 40 mg PO HS 06/18/16 12/20/16 Clopidogrel [Plavix] 75 mg PO DAILY 06/18/16 12/20/16 Fenofibrate [Lofibra] 160 mg PO DAILY 06/18/16 12/20/16 Gabapentin [Neurontin] 400 mg PO TID 06/18/16 12/20/16 Isosorbide MONOnitrate (24 HR) 60 mg PO DAILY 06/18/16 12/20/16 [Imdur] Metoprolol XL (24 HR) Succ [Toprol 50 mg PO DAILY 06/18/16 12/20/16 Xl] Potassium Chloride [Klor-Con 10 meq PO BID 06/18/16 12/20/16 Sprinkle] Budesonide/Formoterol 160/4.5 2 puff IH BID 08/20/16 12/20/16 [Symbicort 160/4.5] Nitroglycerin [Nitrostat] 0.4 mg SL Q5M PRN 08/20/16 12/20/16 Albuterol Sulfate [Albuterol 2 puff IH Q4HR PRN 11/22/16 12/20/16 Inhaler] Lisinopril 2.5 mg PO DAILY 11/22/16 12/20/16 Insulin DETEMIR [Levemir] 20 unit SQ HS 12/20/16 12/20/16 Insulin DETEMIR [Levemir] 40 unit SQ QAM 12/20/16 12/20/16 Previous Rx's Medication Instructions Recorded Furosemide [Lasix] 80 mg PO BIDDIURETIC #120 tablet 09/19/16 Ipratropium/Albuterol Neb [Duoneb] 3 ml IH QIDR inh 11/23/16 Ondansetron ODT [Zofran ODT] 4 mg SL Q8HR PRN #20 tab.rapdis 11/23/16 Rivaroxaban [Xarelto] 20 mg PO 1800 tab 11/23/16 Allergies/Adverse Reactions: Allergies Allergy/AdvReac Type Severity Reaction Status Date / Time Onion Allergy Intermediate Swelling Verified 12/20/16 16:11 of Lip/Tongue/Throat ciprofloxacin [From Cipro] Allergy Hives Verified 12/20/16 16:11 codeine Allergy Hives Verified 12/20/16 16:11 insulin glargine Allergy Hives Verified 12/20/16 16:11 [From Lantus] aspirin AdvReac Nausea Verified 12/20/16 16:11 Past Medical History - Past Medical History Medical history: Reports: cardiomyopathy, cirrhosis, CHF, COPD, coronary artery disease, CVA, DVT, diabetes, peripheral artery disease, renal disease, TIA, other Surgical history: Reports: appendectomy, cholecystectomy, hysterectomy, orthopedic, other, other Psychiatric history: Reports: anxiety, depression CHEMIST FOOD history: Reports: non-contributory - Social History Smoking Status: Current every day smoker Smokeless Tobacco Status: No Alcohol use: Reports: none Drug use: Reports: none Physical Exam - General Limitations: no limitations General appearance: alert, in no apparent distress Course Course Narrative: Patient is a poor historian. Obtaining history and the patient's typical baseline and required multiple direct simple questions. Patient has no primary care provider at this time. Her reasoning is that she does not have transportation to and from her appointments NIHSS score is 9. Part of this includes patient's chronic neurologic deficit from previous strokes. New neurologic findings include ataxia of her left upper extremity, difficulty finding her words, mild slurring of speech. Last known well is 04:00 this morning. Patient is well outside of TPA window. Patient's imaging findings show no acute process. Because there is no hemorrhage per CT head, will provide by mouth aspirin at this time. I spoke with the admitting hospitalist, Dr. Trevizo, who agrees to accept the patient for continued workup and management. Head CT 12/20/16 17:48 IMPRESSION: No acute intracranial hemorrhage or calvarial fracture is identified. There is an area of abnormal michel-white matter loss seen within the left parietal lobe posteriorly, with dilation of the occipital horn of the lateral ventricle suggestive of a chronic process related to previous stroke with encephalomalacia. No definite acute ischemia is identified. D/ / Daniel Porras MD / Daniel Porras MD Interpreting Provider: Daniel Porras MD Cervical Spine CT 12/20/16 19:52 IMPRESSION: No acute fracture. D/ / Osiris Drew MD / Osiris Drew MD Interpreting Provider: Osiris Drew MD Vital Signs Temperature 98.2 F 12/20/16 16:06 Pulse Rate 83 12/20/16 16:06 Respiratory Rate 18 12/20/16 16:06 Blood Pressure 119/71 12/20/16 16:06 O2 Sat by Pulse Oximetry 97 12/20/16 16:06 Temperature 98.2 F 12/20/16 16:06 Pulse Rate 76 12/20/16 20:40 Respiratory Rate 18 12/20/16 16:06 Blood Pressure 113/58 12/20/16 20:40 O2 Sat by Pulse Oximetry 97 12/20/16 20:40 Oxygen Delivery Oxygen Delivery Room Air Neuro Symptoms/Deficit - Lab Data Lab results reviewed: Yes I reviewed the patient's lab results. Result diagrams: 12/20/16 18:41 12/20/16 18:41 Lab Results 12/20/16 12/20/1612/20/17 Range/Units 18:41 18:41 19:17 WBC 9.9 (4.3-11.1) K/mcL RBC 4.18 (3.82-4.97) M/mcL Hgb 11.9 (11.5-15.4) g/dL Hct 35.3 (35.3-44.9) % MCV 84.4 (83.0-100.0) fL MCH 28.5 (28.0-33.3) pg MCHC 33.7 (31.6-35.5) g/dL RDW 14.2 (11.5-14.5) % Plt Count 446 H (140-400) K/mcL MPV 9.8 (9.4-12.4) fL Immature Gran % 0.6 (0-4) % Seg Neutrophils % 64.6 % Lymphocytes % 24.8 % Monocytes % 7.1 % Eosinophils % 2.1 % Basophils % 0.8 % Neutrophils # 6.4 (1.6-8.9) K/mcL Lymphocytes # 2.5 (0.6-4.6) K/mcL Monocytes # 0.7 (0.0-1.3) K/mcL Eosinophils # 0.2 (0.0-0.6) K/mcL Basophils # 0.1 (0.0-0.2) K/mcL PT (9.4-12.1) Seconds INR APTT (26.0-36.0) Seconds Sodium 131 L (136-145) mEq/L Potassium 4.3 (3.5-4.5) mEq/L Chloride 88 L (98-109) mEq/L Carbon Dioxide 31 H (19-29) mEq/L BUN 47 H (7-20) mg/dL Creatinine 1.89 H (0.57-1.11) mg/dL Est GFR ( Amer) 34 L (> 60) Est GFR (Non-Af Amer) 28 L (> 60) BUN/Creatinine Ratio 25 (6-26) Glucose 383 H (70-99) mg/dL POC Glucose 367 H (58-89) Calculated Osmolality 300 (280-300) Calcium 9.3 (8.6-10.8) mg/dL Troponin I (0-0.03) ng/mL Urine Color (Yellow) Urine Clarity (Clear) Urine pH (5.0-8.0) pH Units Ur Specific Roberts (1.010-1.025) Urine Protein (Neg-Trace) mg/dL Urine Glucose (UA) (Normal) mg/dL Urine Ketones (Negative) mg/dL Urine Blood (Negative) Urine Nitrite (Negative) Urine Bilirubin (Negative) Urine Urobilinogen (Normal) mg/dL Ur Leukocyte Esterase (Negative) Urine Microscopic RBC (0-3) per hpf Urine Microscopic WBC (0-3) per hpf Ur Squamous Epith Cells (None-Few) per lpf Urine Bacteria (None-Few) per hpf Hyaline Casts (None-Few) per lpf Ur Culture Indicated? (NO) 12/20/16 12/20/16 12/20/16 Range/Units 19:35 19:41 19:41 WBC (4.3-11.1) K/mcL RBC (3.82-4.97) M/mcL Hgb (11.5-15.4) g/dL Hct (35.3-44.9) % MCV (83.0-100.0) fL MCH (28.0-33.3) pg MCHC (31.6-35.5) g/dL RDW (11.5-14.5) % Plt Count (140-400) K/mcL MPV (9.4-12.4) fL Immature Gran % (0-4) % Seg Neutrophils % % Lymphocytes % % Monocytes % % Eosinophils % % Basophils % % Neutrophils # (1.6-8.9) K/mcL Lymphocytes # (0.6-4.6) K/mcL Monocytes # (0.0-1.3) K/mcL Eosinophils # (0.0-0.6) K/mcL Basophils # (0.0-0.2) K/mcL PT 11.1 (9.4-12.1) Seconds INR 1.0 APTT 33.1 (26.0-36.0) Seconds Sodium (136-145) mEq/L Potassium (3.5-4.5) mEq/L Chloride (98-109) mEq/L Carbon Dioxide (19-29) mEq/L BUN (7-20) mg/dL Creatinine (0.57-1.11) mg/dL Est GFR ( Amer) (> 60) Est GFR (Non-Af Amer) (> 60) BUN/Creatinine Ratio (6-26) Glucose (70-99) mg/dL POC Glucose (58-89) Calculated Osmolality (280-300) Calcium (8.6-10.8) mg/dL Troponin I 0.01 (0-0.03) ng/mL Urine Color Yellow (Yellow) Urine Clarity Cloudy A (Clear) Urine pH 6.0 (5.0-8.0) pH Units Ur Specific Roberts 1.023 (1.010-1.025) Urine Protein >=300 H (Neg-Trace) mg/dL Urine Glucose (UA) >=1000 H (Normal) mg/dL Urine Ketones Negative (Negative) mg/dL Urine Blood Negative (Negative) Urine Nitrite Negative (Negative) Urine Bilirubin Negative (Negative) Urine Urobilinogen Normal (Normal) mg/dL Ur Leukocyte Esterase Negative (Negative) Urine Microscopic RBC 3-5 H (0-3) per hpf Urine Microscopic WBC 5-15 H (0-3) per hpf Ur Squamous Epith Cells Many H (None-Few) per lpf Urine Bacteria None Seen (None-Few) per hpf Hyaline Casts None Seen (None-Few) per lpf Ur Culture Indicated? YES A (NO) - Radiology Data Radiology results reviewed: Yes I reviewed the patient's radiology results. - EKG Data EKG attestation: Yes I reviewed and interpreted this EKG. EKG results narrative: EKG dated 12/20/16 at 19:23 interpreted as sinus rhythm with a rate of 75. Normal intervals. Normal axis. Slight inferior ST depressions not present on previous EKG; patient is chest pain-free at this time. T-wave inversion present on previous EKG dated 11/21/2016 NIH Stroke Scale - Level of Consciousness LOC: Alert - LOC Questions LOC Questions: Answers both correctly - LOC Commands LOC Commands: Performs both correctly - Best Gaze Best Gaze: Normal - Visual Visual: No visual loss - Facial Palsy Facial Palsy: Normal - Motor Arms Motor Arm-Left: No drift for 10 seconds Motor Arm-Right: No drift for 10 seconds - Motor Legs Motor Leg-Left: No effort against gravity, limb falls to bed, some movement Motor Leg-Right: No effort against gravity, limb falls to bed, some movement - Limb Ataxia Limb Ataxia: Present in ONE limb - Sensory Sensory: Mild to moderate loss, "not as sharp" - Best Language Best Language: No aphasia - Dysarthria Dysarthria: Mild, slurs some words - Extinction and Inattention Extinction and Inattention: Normal - NIHSS Total Score NIHSS Total Score: 9 TPA Checklist - Source Information Source: Patient - Eligibilty for IV tPA 1. LKW equal to or less than 4.5 hours be before treatment: No - LKW: 3-4.5 hrs Add. Warnings/Precautions Patient/family understanding: The patient/family members have been counseled and understood the risk, benefit , and alternatives of treatment. Attestation Statement - Attestation Attestation: I, Jaret Beebe DO, examined this patient [id number] and my medical decision-making was reviewed with Dr. Brian Colby Resident Physician. I agree with the documented findings, disposition and treatment plan as described except to the extent set forth below. Please see my progress notes for details. 46-year-old female presents to emergency room with complaint of difficulty of speech difficulty articulating words and some mild difficulty with trying to perform functions and left side of her body. Long-standing history of multiple strokes in the past she is very aware when she has symptoms similar to that. She was concerned that this morning when she woke up she noticed the difficulty with trying to get out words and difficulty with movement of the arm. Patient is well outside the window for stroke evaluation as well as TPA intervention. She clinically does not show any acute deterioration except for some mild dysarthria and mild dysmetric Vital signs are stable patient is in no apparent distress lungs are clear heart is regular neurologic examination discussed and documented in NIH stroke scale. Patient again is well outside the window at the onset of symptoms at 4 AM this morning being greater than 12 hours since that timeframe of this point. Patient is stable. See detailed documentation of the physical exam medical decision making process medical intervention and auscultation. Admission to the hospitalist for definitive evaluation. This documentation completed by the resident. My physical exam is otherwise benign at this time except for stable chronic presentation as well as dysarthria.
[2016-12-20 19:46] LABS: Bacteria,Urine None Seen per hpf (None-Few); Hyaline Casts,Urine None Seen per lpf (None-Few); Squamous Epithelial Cell,Urine Many per lpf (None-Few)
[2016-12-20 20:00] LABS: Prothrombin Time 11.1 Seconds (9.4-12.1)
[2016-12-20 20:02] LABS: Activated Partial Thrombo Time 33.1 Seconds (26.0-36.0)
[2016-12-20] MEDS ORDERED: *HR* Morphine 2 MG/ML SYRINGE IVP ONE (20:35)
[2016-12-20] MEDS ORDERED: Acetaminophen 325 MG TABLET PO PRN (23:04)
[2016-12-20] MEDS ORDERED: Dextrose Gel 15 GM PO PRN ×2 (23:11)
[2016-12-20] MEDS ORDERED: D5% in Water 1,000 ML IVC PRN (23:11)
[2016-12-20] MEDS ORDERED: *HR* Dextrose 50 % in Water (Syg) 50 ML SYRINGE IVP PRN (23:11)
[2016-12-21] MEDS: Insulin LISPRO 300 UNITS/3 ML VIAL SQ SCH ×5 (00:07→21:48)
[2016-12-21] MEDS ORDERED: *HR* Morphine 2 MG/ML SYRINGE IVP PRN (02:12)
[2016-12-21] MEDS ORDERED: Naloxone 0.4 MG/ML INJ IVP PRN (02:12)
[2016-12-21] MEDS ORDERED: Nitroglycerin 0.4 MG TAB.SUBL SL PRN (02:15)
--- NOTE | 2016-12-21 02:29 | Internal Med History&Physical ---
Date of Encounter: 12/21/16 Time of Encounter: 00:15 Assessment and Plan (1) Status post fall Current visit: Yes Status: Acute 1. Inconsistent reports of hitting her head on toilet. Patient on Xarelto. 2. Will need close monitoring. 3. Neurochecks ordered. 4. No abrasions, contusions, or lacerations appreciated on exam. 5. Mechanical fall; no history to suggest syncope or near syncope. (2) IDDM (insulin dependent diabetes mellitus) Current visit: Yes Status: Chronic 1. Continue home basal insulin dosing. 2. Add SSI. 3. Monitor glucose and adjust accordingly. (3) Chest pain Current visit: No Status: Acute 1. Will cycle troponins and EKG's. 2. Continue home meds as appropriate. 3. Consider cardiac work-up if clinical exam and/or lab data suggest ischemia. Qualifiers: Chest pain type: precordial pain Qualified Code(s): R07.2 - Precordial pain (4) Generalized weakness Current visit: No Status: Chronic 1. Chronic, not new. 2. Patient is wheel chair bound. 3. Outpatient follow up with PCP. (5) DVT prophylaxis Current visit: Yes Status: Acute 1. On home Xarelto dosing. Internal Medicine - H&P: HPI Chief complaint: s/p fall; chest pain Admitted From: Emergency Dept Plans for Post Hospital Care: Home History of present illness: Ms. Mckeon is a 46 year old female who presents with complaints of chest pain, status post fall, and neck and back pain. Patient was at home in her wheelchair in her bathroom when this occurred. She is wheelchair-bound and she was transferring herself from the wheelchair to the toilet when she slipped and fell striking the back of her neck, head, and back on the edge of the toilet. She did not have any syncope or near-syncope. This was more of a mechanical fall with difficulty transitioning from wheelchair to toilet. She also developed chest pain. This prompted patient to come to the ER where she was evaluated, scanned, and admitted for observation. Upon my assessment of the patient, she is back to her baseline. She denies any problems at the present time, other than some stiffness and soreness in her neck and her back. She denies truly hitting her head at the edge of her toilet. However, she is on Xarelto and she will need close monitoring of her neurologic status. She is currently chest pain-free. She has a history of prior VT and prior strokes. Regarding her limited mobility, she does not suffer from paralysis and can move her lower extremities. However, she complains of significant progressive weakness over the last several months and years. As such, she mobilizes mostly by wheelchair now. Past Med Surg Social Fam HX - Past Medical History Attestation: Yes The following information was validated with the patient. Source: patient, old records reviewed Medical history: cardiomyopathy, cirrhosis, CHF, COPD, coronary artery disease, CVA, DVT, diabetes, peripheral artery disease, renal disease, TIA, other Psychiatric history: anxiety, depression - Past Surgical History Surgical History: appendectomy, cholecystectomy, hysterectomy, orthopedic, other - Social History Smoking Status: Current every day smoker Packs per day: 0.5 Smokeless Tobacco Status: No Alcohol use: none Drug use: none Current living situation: Home, With Family Activity Level: Wheelchair bound Recent Out of Country Travel Within the Last 8 Weeks: No - Family History Father Adopted: No Family Member Ethnicity: Non- Living Status: Hx Family Cardiac Disorders: Yes Hx Family Respiratory Disorders: Yes Hx Family Cancer: Yes Hx Family Endocrine Disorder: Yes Hx Family Neurologic Disorders: No Internal Medicine - H&P: Meds Atorvastatin [Lipitor] 40 mg PO HS 06/18/16 [History] Clopidogrel [Plavix] 75 mg PO DAILY 06/18/16 [History] Fenofibrate [Lofibra] 160 mg PO DAILY 06/18/16 [History] Gabapentin [Neurontin] 400 mg PO TID 06/18/16 [History] Isosorbide MONOnitrate (24 HR) [Imdur] 60 mg PO DAILY 06/18/16 [History] Metoprolol XL (24 HR) Succ [Toprol Xl] 50 mg PO DAILY 06/18/16 [History] Potassium Chloride [Klor-Con Sprinkle] 10 meq PO BID 06/18/16 [History] Budesonide/Formoterol 160/4.5 [Symbicort 160/4.5] 2 puff IH BID 08/20/16 [ History] Nitroglycerin [Nitrostat] 0.4 mg SL Q5M PRN 08/20/16 [History] Furosemide [Lasix] 80 mg PO BIDDIURETIC #120 tablet 09/19/16 [Rx] Albuterol Sulfate [Albuterol Inhaler] 2 puff IH Q4HR PRN 11/22/16 [History] Lisinopril 2.5 mg PO DAILY 11/22/16 [History] Ipratropium/Albuterol Neb [Duoneb] 3 ml IH QIDR inh 11/23/16 [Rx] Ondansetron ODT [Zofran ODT] 4 mg SL Q8HR PRN #20 tab.rapdis 11/23/16 [Rx] Rivaroxaban [Xarelto] 20 mg PO 1800 tab 11/23/16 [Rx] Insulin DETEMIR [Levemir] 20 unit SQ HS 12/20/16 [History] Insulin DETEMIR [Levemir] 40 unit SQ QAM 12/20/16 [History] 3 Allergy/AdvReac Type Severity Reaction Status Date / Time Onion Allergy Intermediate Swelling Verified 12/20/16 16:11 of Lip/Tongue/Throat ciprofloxacin [From Cipro] Allergy Hives Verified 12/20/16 16:11 codeine Allergy Hives Verified 12/20/16 16:11 insulin glargine Allergy Hives Verified 12/20/16 16:11 [From Lantus] aspirin AdvReac Nausea Verified 12/20/16 16:11 - Constitutional Constitutional: weakness, no chills, no fever(s) - EENT Eyes: no blurry vision, no change in vision Ears: no tinnitus Nose, mouth and throat: no nasal congestion, no sinus pressure, no sore throat - Cardiovascular Cardiovascular ROS IM: chest pain, no diaphoresis, no dyspnea, no dyspnea on exertion, no lightheadedness, no palpitations, no syncope - Respiratory Respiratory: no cough, no hemoptysis - Gastrointestinal Gastrointestinal: no abdominal pain, no diarrhea, no hematemesis, no hematochezia, no melena, no nausea, no vomiting - Genitourinary Genitourinary: no dysuria, no flank pain, no hematuria - Musculoskeletal Musculoskeletal ROS IM: back pain, neck pain, no numbness, no tingling - Integumentary Integumentary IM: no pruritus, no rash - Neurological Neurological ROS: weakness, no disequilibrium, no dizziness, no focal weakness, no headache(s) - Psychiatric Psychiatric: no anxiety, no depression - Endocrine Endocrine IM: no polydipsia, no polyuria - Hematologic/Lymphatic Hematologic/Lymphatic: easy bruising - Allergic/Immunologic Allergic/Immunologic: no GI upset with certain foods - Constitutional Vitals: Temp Pulse Resp BP Pulse Ox 97.7 F 72 12 118/74 99 12/20/16 22:30 12/20/16 22:30 12/20/16 22:30 12/20/16 22:30 12/20/16 22:30 General appearance: Present: cooperative, disheveled, A&O X 3, pleasant, answers questions appropriately - Head Head exam: Present: atraumatic, normal inspection - Expanded Head Exam Head exam expanded: Absent: abrasion, Alatorre's sign, contusion, general tenderness, hematoma, laceration - Eye Eye exam: Present: EOMI, PERRL. Absent: scleral icterus Pupils: Present: normal accommodation - ENT ENT exam: Present: mucous membranes dry, normal exam - Neck Neck exam general surgery: Present: full ROM, tenderness (posteriorly), supple, trachea midline. Absent: nuchal rigidity - Respiratory Respiratory exam: Present: CTAB. Absent: chest wall tenderness, rales, rhonchi , wheezes - Cardiovascular Cardiovascular exam: Present: RRR, +S1, +S2. Absent: diastolic murmur, JVD, systolic murmur - GI/Abdominal GI/Abdominal exam: Present: normal bowel sounds, soft. Absent: hepatomegaly, mass, splenomegaly, tenderness - Extremities Exam Extremities exam: Present: full ROM, warm. Absent: calf tenderness, joint swelling, pedal edema, tenderness - Back Exam Back exam: Present: normal inspection. Absent: CVA tenderness (L), CVA tenderness (R) - Neurological Exam Neurological exam: Present: alert, CN II-XII intact, oriented X3, no focal deficits, strengths equal and symetr throughout Additional comments: She has generalized weakness but no focal findings. - Psychiatric Psychiatric exam: Present: normal affect, normal mood - Skin Skin exam: Present: dry, warm. Absent: abrasion, petechiae, rash Internal Med - H&P Results - Labs CBC & Chem 7: 12/20/16 18:41 12/20/16 18:41 - EKG Data -: EKG Interpreted by Myself EKG shows normal: sinus rhythm - EKG Data EKG comments: 12/21/16 02:36 NSR; nonspecific ST-T changes - VTE Reasons for not Prescribing Prophylaxis: Not indicated-Anticoagulated or INR therapeutic
[2016-12-21] MEDS: Gabapentin 400 MG CAPSULE PO SCH ×4 (03:41→21:48)
[2016-12-21] MEDS: Ipratropium/Albuterol Neb 3 ML IH SCH ×4 (04:24→20:26)
[2016-12-21] MEDS: Ondansetron 4 MG/2 ML VIAL IVP PRN ×2 (05:11→18:33)
[2016-12-21 07:04] LABS: Basophils # 0.1 K/mcL (0.0-0.2); Basophils % 0.9 %; Eosinophils # 0.3 K/mcL (0.0-0.6); Eosinophils % 2.8 %; Hematocrit 35.9 % (35.3-44.9); Hemoglobin 11.6 g/dL (11.5-15.4); Immature Granulocytes % 0.9 % (0-4); Lymphocytes % 32.8 %; Mean Corpuscular HGB Conc 32.3 g/dL (31.6-35.5); Mean Corpuscular Hemoglobin 27.6 pg (28.0-33.3); Mean Corpuscular Volume 85.3 fL (83.0-100.0); Mean Platelet Volume 11.3 fL (9.4-12.4); Monocytes # 0.7 K/mcL (0.0-1.3); Monocytes % 7.6 %; Platelet Count 315 K/mcL (140-400); Red Blood Count 4.21 M/mcL (3.82-4.97); Red Cell Distribution Width 14.3 % (11.5-14.5)
[2016-12-21 07:19] LABS: Alanine Aminotransferase 51 Units/L (0-55); Albumin 2.3 g/dL (3.5-5.0); Albumin/Globulin Ratio 0.6 (1.1-2.2); Alkaline Phosphatase 203 Units/L (38-126); BUN/Creatinine Ratio 27 (6-26); Blood Urea Nitrogen 53 mg/dL (7-20); Calcium 8.9 mg/dL (8.6-10.8); Carbon Dioxide 24 mEq/L (19-29); Chloride 93 mEq/L (98-109); Chol/HDL Ratio 8.3 (0-4.9); Cholesterol 342 mg/dL (< 200); Globulin 3.8 g/dL (2.4-3.5); Glucose 179 mg/dL (70-99); HDL Cholesterol 41 mg/dL (40-59); Osmolality,Calculated 297 (280-300); Sodium 134 mEq/L (136-145); Total Protein 6.1 g/dL (6.0-8.3); Triglycerides 468 mg/dL (< 150); eGFR For African Americans 32 (> 60); eGFR For Non-African Americans 27 (> 60)
[2016-12-21 07:40] LABS: Aspartate Amino Transferase 134 Units/L (5-34); Bilirubin,Total < 0.2 mg/dL (0.2-1.2); Magnesium 2.2 mg/dL (1.6-2.6); Potassium 4.9 mEq/L (3.5-4.5)
[2016-12-21 07:53] LABS: Platelet Estimate Normal (Normal)
[2016-12-21] MEDS ORDERED: Furosemide 40 MG TABLET PO SCH (08:00)
[2016-12-21] MEDS: Insulin DETEMIR 100 UNIT/ML X5UNITS SQ SCH (09:58)
[2016-12-21] MEDS: Metoprolol XL (24 HR) Succ 50 MG TAB.ER.24H PO SCH (09:59)
[2016-12-21] MEDS: Fenofibrate 54 MG TABLET PO SCH (09:59)
[2016-12-21] MEDS: Isosorbide MONOnitrate (24 HR) 60 MG TAB.ER.24H PO SCH (09:59)
[2016-12-21] MEDS ORDERED: traMADol 50 MG TABLET PO ONE (10:09)
[2016-12-21] MEDS: Budesonide/Formoterol 160/4.5 MDI IH SCH ×2 (10:33→20:26)
[2016-12-21] MEDS: 0.9 % Sodium Chloride 1,000 ML IVC SCH (10:49)
[2016-12-21] MEDS ORDERED: Fluconazole 100 MG TABLET PO ONE (14:44)
[2016-12-21] MEDS ORDERED: *HR* Rivaroxaban 10 MG TABLET PO SCH (18:00)
--- NOTE | 2016-12-21 18:27 | Electrocardiograph Report ---
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
[2016-12-21] MEDS: *HR* OxyCODONE Immed Rel 5 MG TABLET PO PRN (18:33)
[2016-12-21] MEDS ORDERED: Insulin DETEMIR 100 UNIT/ML X5UNITS SQ SCH (21:00)
[2016-12-21] MEDS ORDERED: NON-FORMULARY MEDICATION 1 EACH EACH (Insulin Detemir 20 UNIT) SQ SCH (21:00)
[2016-12-22] MEDS: 0.9 % Sodium Chloride 1,000 ML IVC SCH (00:31)
[2016-12-22] MEDS: Ipratropium/Albuterol Neb 3 ML IH SCH ×3 (04:10→15:28)
[2016-12-22 09:05] LABS: Hemoglobin 9.5 g/dL (11.5-15.4); Mean Corpuscular HGB Conc 31.7 g/dL (31.6-35.5); Mean Corpuscular Hemoglobin 28.2 pg (28.0-33.3); Mean Platelet Volume 9.7 fL (9.4-12.4); Platelet Count 420 K/mcL (140-400); Red Blood Count 3.37 M/mcL (3.82-4.97); Red Cell Distribution Width 14.4 % (11.5-14.5)
[2016-12-22] MEDS: Insulin LISPRO 300 UNITS/3 ML VIAL SQ SCH ×2 (09:14→12:31)
[2016-12-22 09:16] LABS: Alanine Aminotransferase 37 Units/L (0-55); Albumin 2.4 g/dL (3.5-5.0); Albumin/Globulin Ratio 0.7 (1.1-2.2); Alkaline Phosphatase 167 Units/L (38-126); Aspartate Amino Transferase 51 Units/L (5-34); BUN/Creatinine Ratio 37 (6-26); Blood Urea Nitrogen 61 mg/dL (7-20); Calcium 8.3 mg/dL (8.6-10.8); Carbon Dioxide 24 mEq/L (19-29); Chloride 100 mEq/L (98-109); Globulin 3.4 g/dL (2.4-3.5); Glucose 54 mg/dL (70-99); Osmolality,Calculated 293 (280-300); Potassium 5.1 mEq/L (3.5-4.5); Sodium 134 mEq/L (136-145); Total Protein 5.8 g/dL (6.0-8.3); eGFR For African Americans 40 (> 60); eGFR For Non-African Americans 33 (> 60)
[2016-12-22 09:24] LABS: Bilirubin,Total < 0.2 mg/dL (0.2-1.2)
[2016-12-22] MEDS: *HR* OxyCODONE Immed Rel 5 MG TABLET PO PRN (09:27)
[2016-12-22] MEDS: Insulin DETEMIR 100 UNIT/ML X5UNITS SQ SCH (09:28)
[2016-12-22] MEDS: Metoprolol XL (24 HR) Succ 50 MG TAB.ER.24H PO SCH (09:28)
[2016-12-22] MEDS: Gabapentin 400 MG CAPSULE PO SCH (09:28)
[2016-12-22] MEDS: Isosorbide MONOnitrate (24 HR) 60 MG TAB.ER.24H PO SCH (09:28)
[2016-12-22] MEDS: Fenofibrate 54 MG TABLET PO SCH (09:28)
[2016-12-22] MEDS: Budesonide/Formoterol 160/4.5 MDI IH SCH (11:07)
[2016-12-22 11:50] VITALS: BP 111/58
--- NOTE | 2016-12-22 13:16 | Discharge Summary ---
Date of Encounter: 12/22/16 Time of Encounter: 13:14 - Discharge Diagnosis (1) Status post fall Priority: Primary Status: Acute Comments: on day of presentation however there were inconsistent reports of patient hitting head on toilet. Head CT with evidence of previous CVA, otherwise nonacute. C-spine negative. No abrasions, contusions, or lacerations on exam. Remained neurologically intact. Fall is mechanical in nature as she tripped when transferring from wheelchair to toilet. No further wok-up indicated. Patient was evaluated by PT who recommended SNF however patient refusing. She is agreeable to [facility]. (2) CAD (coronary artery disease) Priority: Primary Status: Acute Comments: per hx. [facility] 2013 with evidence of CAD, s/p successful PCI at that time. Patient reported chest pain on presentation. Now with inconsistent reports of chest pain while inpatient. Chart reviewed and she last seen cardiology 06/2015; she has not followed up since that time. Serial troponins negative, EKG without acute ST changes. Discussed repetaing stress test with patient but she is declining. Sx's have been intermittent for over a year, no clinical evidence of ACS. Patient strongly encouraged to follow-up with Cardiology outpatient. Plavix , xarelto, BB, statin Qualifiers: Coronary Disease-Associated Artery/Lesion type: [place] artery [place] vs. transplanted heart: [place] heart Associated angina: without angina Qualified Code(s): I25.10 - Atherosclerotic heart disease of [place] coronary artery without angina pectoris (3) Hyperkalemia Priority: Primary Status: Acute Comments: K 5.1 on day of discharge. Kayexalate ordered however patient refused. Recommend repeat CMP within 1-2 days with PCP (4) Diabetes mellitus Priority: Secondary Status: Acute Comments: uncontrolled. Hgb A1c 13 in 11/2016. Suspect secondary to recent steroid use with multiple COPD exacerbations. Cont home regimen at discharge. Recommend follow-up with PCP Qualifiers: Diabetes mellitus type: type 2 Diabetes mellitus complication status: with kidney complications Diabetes mellitus complication detail: with chronic kidney disease Diabetes mellitus ad terminal makeup operator insulin use: with halfway use Chronic kidney disease stage: stage 3 (moderate) Qualified Code(s): E11.22 - Type 2 diabetes mellitus with diabetic chronic kidney disease; N18.3 - Chronic kidney disease, stage 3 (moderate); Z79.4 - terminal system operator (current) use of insulin (5) CHF (congestive heart failure) Priority: Secondary Status: Acute Comments: per hx. 11/2016 TTE with EF 45% and Mild LV systolic dysfunction. Appears euvolemic on exam. Cont home lasix, BB, LUC Qualifiers: Congestive heart failure type: systolic Congestive heart failure chronicity : chronic Qualified Code(s): I50.22 - Chronic systolic (congestive) heart failure (6) CVA (cerebral vascular accident) Priority: Secondary Status: Inactive Comments: hx multiple CVAs with residual neuropathy. Cont home plavix, xaerlto, BB, statin Qualifiers: CVA mechanism: unspecified Qualified Code(s): I63.9 - Cerebral infarction, unspecified (7) CKD (chronic kidney disease) stage 3, GFR 30-59 ml/min Priority: Secondary Status: Acute Comments: per hx. GFR 33 which is consistent with recent values; however GFR has been declining since 05/2016. Patient has not followed up with Nephrology as previously advised. Strongly encouraged outpatient follow-up. Recommend repeating CMP with PCP/filler picker within 3-5 days (8) DVT prophylaxis Priority: Secondary Status: Acute Comments: Xarelto - Discharge Medications Home Medications: Atorvastatin [Lipitor] 40 mg PO HS 06/18/16 [History] Clopidogrel [Plavix] 75 mg PO DAILY 06/18/16 [History] Fenofibrate [Lofibra] 160 mg PO DAILY 06/18/16 [History] Gabapentin [Neurontin] 400 mg PO TID 06/18/16 [History] Isosorbide MONOnitrate (24 HR) [Imdur] 60 mg PO DAILY 06/18/16 [History] Metoprolol XL (24 HR) Succ [Toprol Xl] 50 mg PO DAILY 06/18/16 [History] Potassium Chloride [Klor-Con Sprinkle] 10 meq PO BID 06/18/16 [History] Budesonide/Formoterol 160/4.5 [Symbicort 160/4.5] 2 puff IH BID 08/20/16 [ History] Nitroglycerin [Nitrostat] 0.4 mg SL Q5M PRN 08/20/16 [History] Furosemide [Lasix] 80 mg PO BIDDIURETIC #120 tablet 09/19/16 [Rx] Albuterol Sulfate [Albuterol Inhaler] 2 puff IH Q4HR PRN 11/22/16 [History] Lisinopril 2.5 mg PO DAILY 11/22/16 [History] Ipratropium/Albuterol Neb [Duoneb] 3 ml IH QIDR inh 11/23/16 [Rx] Ondansetron ODT [Zofran ODT] 4 mg SL Q8HR PRN #20 tab.rapdis 11/23/16 [Rx] Rivaroxaban [Xarelto] 20 mg PO 1800 tab 11/23/16 [Rx] Insulin DETEMIR [Levemir] 20 unit SQ HS 12/20/16 [History] Insulin DETEMIR [Levemir] 40 unit SQ QAM 12/20/16 [History] Allergies/Adverse Reactions: 3 Allergy/AdvReac Type Severity Reaction Status Date / Time Onion Allergy Intermediate Swelling Verified 12/20/16 16:11 of Lip/Tongue/Throat ciprofloxacin [From Cipro] Allergy Hives Verified 12/20/16 16:11 codeine Allergy Hives Verified 12/20/16 16:11 insulin glargine Allergy Hives Verified 12/20/16 16:11 [From Lantus] aspirin AdvReac Nausea Verified 12/20/16 16:11 Procedures/tests Complete & Pending: Procedures Performed prior 72 hours Category Date Time Status ECG 12 lead ECG [ECG] AM 0600 Y 12/21/16 06:00 Ordered ECG 12 lead ECG [ECG] Routine Y 12/20/16 19:23 Completed Date of admission: 12/20/16 21:21 Primary care physician: PCP NONE Consults: 12/21/16 00:33 Consult to Motor Coach Driver [CONS] Routine Reason for SW Consult: DISCHARGE PLANNING, POSSIBLE NEED 12/21/16 10:42 Consult to Physical Therapy [CONS] Routine Comment: Evaluate, develop and implement POC Reason for Consult: evaluation OT [Consult to Occupational Therapy] [CONS] Routine Comment: Evaluate, develop and implement POC Reason for Consult: Evaluation Discharging clinician: Kaylah Ragland Anticipated date of discharge: 12/22/16 (48 minutes spent on discharge ) - Patient Status Disposition: Home Health Service Functional capacity at discharge: wheelchair bound Overall status at discharge: patient is back to baseline - Discharge Instructions Follow Up With: NONE,PCP [Primary Care Provider] - Additional Instructions: You will need to follow-up with HHC or PCP within 1-2 days for repeat labs. Will also need to follow-up with Neurologist for repeat kidney function - Diet and Activity Activity: as per physical therapy Diet: diabetic diet, low fat, low cholesterol Interval History: Seen and examined at bedside, she is sitting up in chair eating breakfast. Says she feels better and wants to go home. When asked about chest pain, she initially denies, then she goes on to tell me that she has had intermittent chest pain for the last year. She has not followed up with Cardiology. Discussed stress test this admission but she is refusing, wants to go home. Denies CP, no SOB on my exam. Hospital course: Ms. Mckeon is a 46 year old female - Time Spent with Patient Total time spent providing and/or coordinating discharge services: Greater than 30 minutes (55) - Constitutional Vitals: Temp Pulse Resp BP Pulse Ox 97.5 F L 66 17 111/58 98 12/22/16 11:50 12/22/16 11:50 12/22/16 11:50 12/22/16 11:50 12/22/16 11:50 General appearance: Present: cooperative, disheveled, A&O X 3, pleasant, answers questions appropriately - Head Head exam: Present: atraumatic, normocephalic - Eye Eye exam: Present: PERRL, conjuntiva pink, sclera anicteric Pupils: Present: PERRL - Neck Neck exam general surgery: Present: supple, trachea midline. Absent: lymphadenopathy - Respiratory Respiratory exam: Present: CTAB. Absent: accessory muscle use, rales, rhonchi, wheezes - Cardiovascular Cardiovascular exam: Present: RRR, +S1, +S2. Absent: diastolic murmur, gallop, rubs, systolic murmur - GI/Abdominal GI/Abdominal exam: Present: normal bowel sounds, soft, no peritoneal signs. Absent: distended, tenderness - Extremities Exam Extremities exam: Present: pedal edema (trace bilateral pedal edema ), warm, radial pulses palpable and symmetrical. Absent: calf tenderness, cyanotic - Neurological Exam Neurological exam: Present: CN II-XII intact, oriented X3, no focal deficits. Absent: pronater drift, facial droop, speech deficit - Skin Skin exam: Present: dry, intact - VTE Reasons for not Prescribing Prophylaxis: Not indicated-Anticoagulated or INR therapeutic
--- NOTE | 2016-12-22 13:50 | Physician Discharge Referral ---
Home Health/Hosp Referral Info Transfer to: Home Health Attending Provider: Kaylah James CNP Provider in Charge Post Discharge: PCP - Diagnosis (1) Status post fall Status: Acute (2) CAD (coronary artery disease) Status: Acute (3) Hyperkalemia Status: Acute (4) Diabetes mellitus Status: Acute (5) CHF (congestive heart failure) Status: Acute (6) CVA (cerebral vascular accident) Status: Inactive (7) CKD (chronic kidney disease) stage 3, GFR 30-59 ml/min Status: Acute (8) DVT prophylaxis Status: Acute - Respiratory Orders Smoking Cessation: Smoking cessation has been advised. For more information, call the [employer] Tobacco Quit Line at 8-232-MSNJ-NOW. - Diet/Nutrition Diet/Nutrition Orders: No Added Salt ([employer]), Cardiac, No Concentrated Sweets - Activity Activity Orders: Chair - Services Needed Following services are medically necessary services: Nursing, Physical Therapy, Occupational Therapy - Transfer Medications Home Medications: Atorvastatin [Lipitor] 40 mg PO HS 06/18/16 [History] Clopidogrel [Plavix] 75 mg PO DAILY 06/18/16 [History] Fenofibrate [Lofibra] 160 mg PO DAILY 06/18/16 [History] Gabapentin [Neurontin] 400 mg PO TID 06/18/16 [History] Isosorbide MONOnitrate (24 HR) [Imdur] 60 mg PO DAILY 06/18/16 [History] Metoprolol XL (24 HR) Succ [Toprol Xl] 50 mg PO DAILY 06/18/16 [History] Potassium Chloride [Klor-Con Sprinkle] 10 meq PO BID 06/18/16 [History] Budesonide/Formoterol 160/4.5 [Symbicort 160/4.5] 2 puff IH BID 08/20/16 [ History] Nitroglycerin [Nitrostat] 0.4 mg SL Q5M PRN 08/20/16 [History] Furosemide [Lasix] 80 mg PO BIDDIURETIC #120 tablet 09/19/16 [Rx] Albuterol Sulfate [Albuterol Inhaler] 2 puff IH Q4HR PRN 11/22/16 [History] Lisinopril 2.5 mg PO DAILY 11/22/16 [History] Ipratropium/Albuterol Neb [Duoneb] 3 ml IH QIDR inh 11/23/16 [Rx] Ondansetron ODT [Zofran ODT] 4 mg SL Q8HR PRN #20 tab.rapdis 11/23/16 [Rx] Rivaroxaban [Xarelto] 20 mg PO 1800 tab 11/23/16 [Rx] Insulin DETEMIR [Levemir] 20 unit SQ HS 12/20/16 [History] Insulin DETEMIR [Levemir] 40 unit SQ QAM 12/20/16 [History] Allergies/Adverse Reactions: 3 Allergy/AdvReac Type Severity Reaction Status Date / Time Onion Allergy Intermediate Swelling Verified 12/20/16 16:11 of Lip/Tongue/Throat ciprofloxacin [From Cipro] Allergy Hives Verified 12/20/16 16:11 codeine Allergy Hives Verified 12/20/16 16:11 insulin glargine Allergy Hives Verified 12/20/16 16:11 [From Lantus] aspirin AdvReac Nausea Verified 12/20/16 16:11 Certification: Further, I certify that my clinical findings support that this patient is homebound (i.e. absences from home require considerable and taxing effort and are for medical reasons or yazidism services or infrequently or short duration when for other reasons) because: Homebound Reason: Leaving home requires considerable and taxing effort due to condition Attestation: My signature below is to certify that this patient is under my care and that I, or nurse practitioner, or a physician's night assistant working with me, has a face-to -face encounter with this patient.
== END 2016-12-22 17:23 | disposition home health service (06) ==
LOC: 3BNU 15:29 → EMEROO 15:29 → 3BNU 22:01
PROVIDERS: ADMIT Pediatrics; ATTEND Registered Nurse

== ENCOUNTER 2017-02-14 11:17 | Inpatient (IN) ==
[2017-02-14] MEDS ORDERED: 0.9 % Sodium Chloride 1,000 ML IVC ONE ×2 (11:28→13:03)
[2017-02-14] MEDS ORDERED: Vancomycin 1,000 MG in D5% in Water 250 ML IVPB ONE ×2 (11:30→11:35)
[2017-02-14] MEDS ORDERED: Levofloxacin 750 MG/150 ML 750 MG/150 ML BAG IVPB ONE (11:30)
[2017-02-14] MEDS ORDERED: Piperacillin/Tazobactam 3.375 GM in D5% in Water 50 ML IVPB ONE (11:30)
[2017-02-14 11:43] LABS: Bilirubin,Urine Negative (Negative); Blood,Urine Moderate (Negative); Clarity,Urine Cloudy (Clear); Color,Urine Yellow (Yellow); Glucose,Urine (UA) >=1000 mg/dL (Normal); Ketones,Urine 15 mg/dL (Negative); Leukocyte Esterase,Urine Negative (Negative); Nitrite,Urine Negative (Negative); Protein,Urine >=1000 mg/dL (Neg-Trace); Specific Gravity,Urine 1.028 (1.010-1.025); Urobilinogen,Urine Normal (Normal)
[2017-02-14 11:47] LABS: Squamous Epithelial Cell,Urine Many per lpf (None-Few); WBC,Urine 15-30 per hpf (0-3)
[2017-02-14 11:50] LABS: Amphetamine Screen,Urine Negative ng/mL (Cutoff=1000); Barbiturate Screen,Urine Negative ng/mL (Cutoff=200); Benzodiazepines Screen,Urine Negative ng/mL (Cutoff=200); Cannabinoid Screen,Urine Negative ng/mL (Cutoff = 50); Cocaine Screen,Urine Negative ng/mL (Cutoff= 300); Opiate Screen,Urine Negative ng/mL (Cutoff=300); Phencyclidine Screen,Urine Negative ng/mL (Cutoff=25)
[2017-02-14 12:00] LABS: Bacteria,Urine Few per hpf (None-Few)
--- NOTE | 2017-02-14 12:33 | Emergency Department Note ---
Disposition Clinical Impression: Elevated troponin, LANETTE (acute kidney injury), Hypokalemia, Hyperglycemia Altered mental status Qualifiers: Altered mental status type: unspecified Qualified Code(s): R41.82 - Altered mental status, unspecified Leukocytosis Qualifiers: Leukocytosis type: unspecified Qualified Code(s): D72.829 - Elevated white blood cell count, unspecified Disposition: Admitted As Inpatient Condition: Serious Altered Mental Status HPI - General Chief Complaint: ED Altered Mental Status Stated Complaint: unresponsive Time Seen by Provider: 02/14/17 11:27 Source: EMS Mode of arrival: EMS Limitations: altered mental status Nursing Notes Reviewed: Yes Vital Signs Reviewed: Yes - History of Present Illness HPI Narrative: 47-year-old female reported history of diabetes presents to the ER via EMS due to being unresponsive. EMS reports patient has been like this for 2 days as per their report. All they know about her is that she is a diabetic. Upon presentation the patient was noted to be altered and not protecting her airway. There was emesis to her face as well as stool covering her lower extremities. Patient was intubated due to airway protection and neurologic status. No family at bedside currently to discuss her recent history. Patient sent to CT for stat evaluation for intracranial evaluation. MD complaint: altered mental status Onset (ago): day(s) Context: unknown - Related Data Home Medications Medication Instructions Recorded Confirmed Atorvastatin [Lipitor] 40 mg PO HS 06/18/16 02/14/17 Clopidogrel [Plavix] 75 mg PO DAILY 06/18/16 02/14/17 Fenofibrate [Lofibra] 160 mg PO DAILY 06/18/16 02/14/17 Gabapentin [Neurontin] 400 mg PO TID 06/18/16 02/14/17 Isosorbide MONOnitrate (24 HR) 60 mg PO DAILY 06/18/16 02/14/17 [Imdur] Metoprolol XL (24 HR) Succ [Toprol 50 mg PO DAILY 06/18/16 02/14/17 Xl] Potassium Chloride [Klor-Con 10 meq PO BID 06/18/16 02/14/17 Sprinkle] Budesonide/Formoterol 160/4.5 2 puff IH BID 08/20/16 02/14/17 [Symbicort 160/4.5] Nitroglycerin [Nitrostat] 0.4 mg SL Q5M PRN 05/19/17 11/13/17 Albuterol Sulfate [Albuterol 2 puff IH Q4HR PRN 11/22/16 02/14/17 Inhaler] Lisinopril 2.5 mg PO DAILY 11/22/16 02/14/17 Insulin DETEMIR [Levemir] 20 unit SQ HS 12/20/16 12/20/16 Insulin DETEMIR [Levemir] 40 unit SQ QAM 12/20/16 12/20/16 Furosemide [Lasix] 40 mg PO DAILY 02/14/17 02/14/17 Rivaroxaban [Xarelto] 15 mg PO BID 02/14/17 02/14/17 Previous Rx's Medication Instructions Recorded Ipratropium/Albuterol Neb [Duoneb] 3 ml IH QIDR inh 11/23/16 Ondansetron ODT [Zofran ODT] 4 mg SL Q8HR PRN #20 tab.rapdis 11/23/16 Allergies Allergy/AdvReac Type Severity Reaction Status Date / Time Onion Allergy Intermediate Swelling Verified 12/20/16 16:11 of Lip/Tongue/Throat ciprofloxacin [From Cipro] Allergy Hives Verified 12/20/16 16:11 codeine Allergy Hives Verified 12/20/16 16:11 insulin glargine Allergy Hives Verified 12/20/16 16:11 [From Lantus] aspirin AdvReac Nausea Verified 12/20/16 16:11 Limitations: ROS unobtainable due to patients medical condition Past Medical History - Past Medical History Source: unable to obtain Medical history: Reports: cardiomyopathy, cirrhosis, CHF, COPD, coronary artery disease, CVA, DVT, diabetes, peripheral artery disease, renal disease, TIA, other Surgical history: Reports: appendectomy, cholecystectomy, hysterectomy, orthopedic, other Psychiatric history: Reports: anxiety, depression [employer] OPER[employer] history: Reports: non-contributory - Social History Smoking Status: Current every day smoker Smokeless Tobacco Status: No Alcohol use: Reports: none Drug use: Reports: none Physical Exam - General Limitations: altered mental status General appearance: lethargic - Head Head exam: atraumatic - Eye Eye exam: Present: normal appearance - ENT ENT exam: other (There is emesis around her mouth) - Neck Neck exam: Present: normal inspection - Chest Chest inspection: Present: normal inspection - Respiratory Respiratory exam: Present: other (Course breath sounds bilaterally) - Cardiovascular Cardiovascular exam: Present: regular rate, normal rhythm, normal heart sounds - Abdominal Exam Abdominal exam: Present: soft. Absent: distention, rigidity - Extremities Exam Extremities exam: Present: normal inspection - Expanded Upper Extremity Exam Shoulder exam: Present: normal inspection Arm exam: Present: normal inspection Elbow exam: Present: normal inspection Forearm/Wrist exam: Present: normal inspection Hand exam: Present: normal inspection - Expanded Lower Extremity Exam Hip/Pelvis exam: Present: normal inspection, other (There is stool covering her inguinal area and proximal lower extremities) Upper leg exam: Present: normal inspection Knee exam: Present: normal inspection Lower leg exam: Present: normal inspection Ankle exam: Present: normal inspection Foot/toe exam: Present: normal inspection - Neurological Exam Neurological exam: Absent: alert, oriented X3 - Skin Skin exam: Present: warm Course Course Narrative: Patient seen and examined the time of arrival. Intubated for airway protection please see note for details. IO placed by nurse due to poor access. We will obtain a CT scan of her head as well as labs including CBC, BMP, TSH, ammonia, lactate, blood cultures, urinalysis. Patient started on broad-spectrum antibiotics and fluid resuscitation. - Reevaluation(s) Reevaluation #1: Patient found to be hypotensive after coming back from CT. Second liter of fluids ordered as well as Levophed encase her pressures continued to decline. - Consultations Consultation #1: I spoke with the on-call psych rn. Discussed the patient's history exam and imaging labs and interventions to date. They agree with ICU admission and requested give a liter of lactated Ringer's and to obtain a CT scan of her abdomen and pelvis. Vital Signs Temperature 0 F L 02/14/17 11:21 Pulse Rate 88 02/14/17 11:21 Respiratory Rate 18 02/14/17 11:21 Blood Pressure 119/58 02/14/17 11:21 O2 Sat by Pulse Oximetry 97 02/14/17 11:21 Temperature 0 F L 02/14/17 11:21 Pulse Rate 65 02/14/17 14:43 Respiratory Rate 14 02/14/17 15:50 Blood Pressure 100/64 02/14/17 15:18 O2 Sat by Pulse Oximetry 97 02/14/17 15:50 Oxygen Delivery Oxygen Delivery Ventilator Procedures - Central Line Placement Right IJ Central Line Inserted*: Yes Central Line Insertion: emergent Procedural Pause: verify patient name and date of , assemble equipment and verify supplies Patient Placed on Monitor/Pulse Ox: Yes During the Procedure: clinician is wearing sterile gloves, cap, mask,& gown during insertion, sterile field and sterile technique are maintained, patient's face is covered with drape or mask and wearing a cap, everyone in room is wearing a mask Central Line Prep: Chlorhexidine scrub (x3) Prep the Procedure Site: apply chloraprep to the skin using a back and forth scrubbing motion, apply chloraprep for 30 seconds (upper body), 1-2 min ( femoral sites), allow prep to dry, drape the patient with a full body drape Ultrasound Used for Placement: Yes Central Line Lumen Inserted: triple Post Procedure: sutured in place, good blood return, all ports aspirated, flushed, capped, sterile dressing applied, guide wire removed and visualized Post Procedure X-Ray: tip of catheter in good position Patient Tolerated Procedure: well, no complications Complications: none - Intubation Time out performed: No sedative: Etomidate Mg Given: 20 paralytic: Rocuronium Mg Given: 100 Laryngoscope: Phuong ET Tube Size: 7.5 ET Tube Uncuffed: No Tube Secured Depth (cm): 22 Tube Secured Location: lips Tube Placement Confirmation: visualized tube passing through cords, equal breath sounds bilaterally, no breath sounds over epigastrium, confirmation by capnometry Patient Tolerated Procedure: well Intubation Complications: other (emesis in airway) Altered Mental Status - [facility] Narrative Medical decision making narrative: 47-year-old female presents to the ER found unresponsive. Reports she has been unresponsive for 2 days at home. She was intubated upon arrival due to altered mental status and protection of her airway. She is disheveled on exam with emesis as well as copious stool output. Patient intubated and central line placed in the emergency department. CT scan shows no acute abnormalities. Chest x-ray unremarkable. She is noted to have a white count of 20 with a left shift. Lactate is normal. She is profoundly hyperglycemic over 1000 as well as an anion gap of 24 with an acute kidney injury. She is hypokalemic at 2.8 so insulin was held given chance of dysrhythmia. Patient supplemented with IV and oral potassium. Case discussed with the psych rn who requested a CT scan of her abdomen and pelvis as well as a liter of lactated Ringer's. Troponin elevated at 1.78 with cardiology paged. Patient is admitted to the psych rn service in serious but stable condition. - Lab Data Lab results reviewed: Yes I reviewed the patient's lab results. Result diagrams: 02/14/17 16:11 02/14/17 12:57 Lab Results 02/14/17 02/14/17 02/14/17 Range/Units 11:32 11:32 12:37 WBC (4.3-11.1) K/mcL RBC (3.82-4.97) M/mcL Hgb (11.5-15.4) g/dL Hct (35.3-44.9) % MCV (83.0-100.0) fL MCH (28.0-33.3) pg MCHC (31.6-35.5) g/dL RDW (11.5-14.5) % Plt Count (140-400) K/mcL MPV (9.4-12.4) fL Immature Gran % (0-4) % Seg Neutrophils % % Lymphocytes % % Monocytes % % Eosinophils % % Basophils % % Neutrophils # (1.6-8.9) K/mcL Lymphocytes # (0.6-4.6) K/mcL Monocytes # (0.0-1.3) K/mcL Eosinophils # (0.0-0.6) K/mcL Basophils # (0.0-0.2) K/mcL PT (9.4-12.1) Seconds INR APTT (26.0-36.0) Seconds ABG pH (7.32-7.45) pH Units ABG pCO2 (35-45) mmHg ABG pO2 (85-104) mmHg ABG HCO3 (21-27) mEq/L ABG Total CO2 (20-26) mEq/L ABG O2 Saturation (95-98) % ABG Base Excess (-2 to 3) mEq/L Carboxyhemoglobin (0-5) % Sodium (136-145) mEq/L Potassium (3.5-4.5) mEq/L Chloride (98-109) mEq/L Carbon Dioxide (19-29) mEq/L BUN (7-20) mg/dL Creatinine (0.57-1.11) mg/dL Est GFR ( Amer) (> 60) Est GFR (Non-Af Amer) (> 60) BUN/Creatinine Ratio (6-26) Glucose (70-99) mg/dL Calculated Osmolality (280-300) Lactic Acid (0.5-2.2) mmol/L Calcium (8.6-10.8) mg/dL Magnesium (1.6-2.6) mg/dL Total Bilirubin (0.2-1.2) mg/dL Direct Bilirubin (0.0-0.5) mg/dL Indirect Bilirubin (0.0-1.2) mg/dL AST (5-34) Units/L ALT (0-55) Units/L Alkaline Phosphatase (38-126) Units/L Ammonia 21 (18-72) mcmol/L Creatine Kinase (29-168) Units/L Troponin I (0-0.03) ng/mL Serum Total Protein (6.0-8.3) g/dL Albumin (3.5-5.0) g/dL Globulin (2.4-3.5) g/dL Albumin/Globulin Ratio (1.1-2.2) Beta-Hydroxybutyric Acd (0.02-0.27) mmol/L TSH (0.350-4.840) mcIU/mL Urine Color Yellow (Yellow) Urine Clarity Cloudy A (Clear) Urine pH 7.0 (5.0-8.0) pH Units Ur Specific Randall 1.028 H (1.010-1.025) Urine Protein >=1000 H (Neg-Trace) mg/dL Urine Glucose (UA) >=1000 H (Normal) mg/dL Urine Ketones 15 H (Negative) mg/dL Urine Blood Moderate H (Negative) Urine Nitrite Negative (Negative) Urine Bilirubin Negative (Negative) Urine Urobilinogen Normal (Normal) mg/dL Ur Leukocyte Esterase Negative (Negative) Urine Microscopic RBC 5-15 H (0-3) per hpf Urine Microscopic WBC 15-30 H (0-3) per hpf Ur Squamous Epith Cells Many H (None-Few) per lpf Urine Bacteria Few (None-Few) per hpf Hyaline Casts Test Not Performed Ur Culture Indicated? NO (NO) Urine Opiates Screen Negative (Kewtng=732) ng/mL Ur Barbiturates Screen Negative (Gtqxjz=104) ng/mL Ur Phencyclidine Scrn Negative (Cutoff=25) ng/mL Ur Amphetamines Screen Negative (Kubyth=4177) ng/mL U Benzodiazepines Scrn Negative (Fsuxex=015) ng/mL Urine Cocaine Screen Negative (Cutoff= 300) ng/mL U Marijuana (THC) Screen Negative (Cutoff = 50) ng/mL Ethyl Alcohol (0-10) mg/dL Blood Type Antibody Screen 02/14/17 02/14/17 02/14/17 Range/Units 12:40 12:48 12:57 WBC 20.5 H (4.3-11.1) K/mcL RBC 4.22 (3.82-4.97) M/mcL Hgb 12.1 (11.5-15.4) g/dL Hct 38.8 (35.3-44.9) % MCV 91.9 (83.0-100.0) fL MCH 28.7 (28.0-33.3) pg MCHC 31.2 L (31.6-35.5) g/dL RDW 13.3 (11.5-14.5) % Plt Count 364 (140-400) K/mcL MPV 10.9 (9.4-12.4) fL Immature Gran % 0.9 (0-4) % Seg Neutrophils % 83.6 % Lymphocytes % 8.2 % Monocytes % 7.0 % Eosinophils % 0.0 % Basophils % 0.3 % Neutrophils # 17.2 H (1.6-8.9) K/mcL Lymphocytes # 1.7 (0.6-4.6) K/mcL Monocytes # 1.4 H (0.0-1.3) K/mcL Eosinophils # 0.0 (0.0-0.6) K/mcL Basophils # 0.1 (0.0-0.2) K/mcL PT (9.4-12.1) Seconds INR APTT (26.0-36.0) Seconds ABG pH 7.33 (7.32-7.45) pH Units ABG pCO2 36 (35-45) mmHg ABG pO2 104 (85-104) mmHg ABG HCO3 19 L (21-27) mEq/L ABG Total CO2 20 (20-26) mEq/L ABG O2 Saturation 98 (95-98) % ABG Base Excess -6 L (-2 to 3) mEq/L Carboxyhemoglobin 1.5 (0-5) % Sodium (136-145) mEq/L Potassium (3.5-4.5) mEq/L Chloride (98-109) mEq/L Carbon Dioxide (19-29) mEq/L BUN (7-20) mg/dL Creatinine (0.57-1.11) mg/dL Est GFR ( Amer) (> 60) Est GFR (Non-Af Amer) (> 60) BUN/Creatinine Ratio (6-26) Glucose (70-99) mg/dL Calculated Osmolality (280-300) Lactic Acid (0.5-2.2) mmol/L Calcium (8.6-10.8) mg/dL Magnesium (1.6-2.6) mg/dL Total Bilirubin (0.2-1.2) mg/dL Direct Bilirubin (0.0-0.5) mg/dL Indirect Bilirubin (0.0-1.2) mg/dL AST (5-34) Units/L ALT (0-55) Units/L Alkaline Phosphatase (38-126) Units/L Ammonia (18-72) mcmol/L Creatine Kinase (29-168) Units/L Troponin I (0-0.03) ng/mL Serum Total Protein (6.0-8.3) g/dL Albumin (3.5-5.0) g/dL Globulin (2.4-3.5) g/dL Albumin/Globulin Ratio (1.1-2.2) Beta-Hydroxybutyric Acd (0.02-0.27) mmol/L TSH (0.350-4.840) mcIU/mL Urine Color (Yellow) Urine Clarity (Clear) Urine pH (5.0-8.0) pH Units Ur Specific Randall (1.010-1.025) Urine Protein (Neg-Trace) mg/dL Urine Glucose (UA) (Normal) mg/dL Urine Ketones (Negative) mg/dL Urine Blood (Negative) Urine Nitrite (Negative) Urine Bilirubin (Negative) Urine Urobilinogen (Normal) mg/dL Ur Leukocyte Esterase (Negative) Urine Microscopic RBC (0-3) per hpf Urine Microscopic WBC (0-3) per hpf Ur Squamous Epith Cells (None-Few) per lpf Urine Bacteria (None-Few) per hpf Hyaline Casts Ur Culture Indicated? (NO) Urine Opiates Screen (Dkdvmn=462) ng/mL Ur Barbiturates Screen (Nuuznw=185) ng/mL Ur Phencyclidine Scrn (Cutoff=25) ng/mL Ur Amphetamines Screen (Bwiqra=8724) ng/mL U Benzodiazepines Scrn (Ojrzif=787) ng/mL Urine Cocaine Screen (Cutoff= 300) ng/mL U Marijuana (THC) Screen (Cutoff = 50) ng/mL Ethyl Alcohol (0-10) mg/dL Blood Type Antibody Screen 02/14/17 02/14/17 02/14/17 Range/Units 12:57 12:57 12:57 WBC (4.3-11.1) K/mcL RBC (3.82-4.97) M/mcL Hgb (11.5-15.4) g/dL Hct (35.3-44.9) % MCV (83.0-100.0) fL MCH (28.0-33.3) pg MCHC (31.6-35.5) g/dL RDW (11.5-14.5) % Plt Count (140-400) K/mcL MPV (9.4-12.4) fL Immature Gran % (0-4) % Seg Neutrophils % % Lymphocytes % % Monocytes % % Eosinophils % % Basophils % % Neutrophils # (1.6-8.9) K/mcL Lymphocytes # (0.6-4.6) K/mcL Monocytes # (0.0-1.3) K/mcL Eosinophils # (0.0-0.6) K/mcL Basophils # (0.0-0.2) K/mcL PT 11.7 (9.4-12.1) Seconds INR 1.1 APTT 26.1 (26.0-36.0) Seconds ABG pH (7.32-7.45) pH Units ABG pCO2 (35-45) mmHg ABG pO2 (85-104) mmHg ABG HCO3 (21-27) mEq/L ABG Total CO2 (20-26) mEq/L ABG O2 Saturation (95-98) % ABG Base Excess (-2 to 3) mEq/L Carboxyhemoglobin (0-5) % Sodium 141 (136-145) mEq/L Potassium 2.8 L (3.5-4.5) mEq/L Chloride 97 L (98-109) mEq/L Carbon Dioxide 17 L (19-29) mEq/L BUN 84 H (7-20) mg/dL Creatinine 3.46 H (0.57-1.11) mg/dL Est GFR ( Amer) 17 L (> 60) Est GFR (Non-Af Amer) 14 L (> 60) BUN/Creatinine Ratio 24 (6-26) Glucose 1019 H* (70-99) mg/dL Calculated Osmolality 369 H (280-300) Lactic Acid (0.5-2.2) mmol/L Calcium 8.6 (8.6-10.8) mg/dL Magnesium 2.1 (1.6-2.6) mg/dL Total Bilirubin 0.6 (0.2-1.2) mg/dL Direct Bilirubin 0.3 (0.0-0.5) mg/dL Indirect Bilirubin 0.3 (0.0-1.2) mg/dL AST 19 (5-34) Units/L ALT 13 (0-55) Units/L Alkaline Phosphatase 91 (38-126) Units/L Ammonia (18-72) mcmol/L Creatine Kinase 248 H (29-168) Units/L Troponin I 1.78 H* (0-0.03) ng/mL Serum Total Protein 5.7 L (6.0-8.3) g/dL Albumin 1.9 L (3.5-5.0) g/dL Globulin 3.8 H (2.4-3.5) g/dL Albumin/Globulin Ratio 0.5 L (1.1-2.2) Beta-Hydroxybutyric Acd > 2.00 H (0.02-0.27) mmol/L TSH 0.825 (0.350-4.840) mcIU/mL Urine Color (Yellow) Urine Clarity (Clear) Urine pH (5.0-8.0) pH Units Ur Specific Randall (1.010-1.025) Urine Protein (Neg-Trace) mg/dL Urine Glucose (UA) (Normal) mg/dL Urine Ketones (Negative) mg/dL Urine Blood (Negative) Urine Nitrite (Negative) Urine Bilirubin (Negative) Urine Urobilinogen (Normal) mg/dL Ur Leukocyte Esterase (Negative) Urine Microscopic RBC (0-3) per hpf Urine Microscopic WBC (0-3) per hpf Ur Squamous Epith Cells (None-Few) per lpf Urine Bacteria (None-Few) per hpf Hyaline Casts Ur Culture Indicated? (NO) Urine Opiates Screen (Amtumb=932) ng/mL Ur Barbiturates Screen (Zzyvyn=046) ng/mL Ur Phencyclidine Scrn (Cutoff=25) ng/mL Ur Amphetamines Screen (Pxquxw=4113) ng/mL U Benzodiazepines Scrn (Tavsbj=999) ng/mL Urine Cocaine Screen (Cutoff= 300) ng/mL U Marijuana (THC) Screen (Cutoff = 50) ng/mL Ethyl Alcohol < 10 (0-10) mg/dL Blood Type Antibody Screen 02/14/17 02/14/17 Range/Units 12:57 12:57 WBC (4.3-11.1) K/mcL RBC (3.82-4.97) M/mcL Hgb (11.5-15.4) g/dL Hct (35.3-44.9) % MCV (83.0-100.0) fL MCH (28.0-33.3) pg MCHC (31.6-35.5) g/dL RDW (11.5-14.5) % Plt Count (140-400) K/mcL MPV (9.4-12.4) fL Immature Gran % (0-4) % Seg Neutrophils % % Lymphocytes % % Monocytes % % Eosinophils % % Basophils % % Neutrophils # (1.6-8.9) K/mcL Lymphocytes # (0.6-4.6) K/mcL Monocytes # (0.0-1.3) K/mcL Eosinophils # (0.0-0.6) K/mcL Basophils # (0.0-0.2) K/mcL PT (9.4-12.1) Seconds INR APTT (26.0-36.0) Seconds ABG pH (7.32-7.45) pH Units ABG pCO2 (35-45) mmHg ABG pO2 (85-104) mmHg ABG HCO3 (21-27) mEq/L ABG Total CO2 (20-26) mEq/L ABG O2 Saturation (95-98) % ABG Base Excess (-2 to 3) mEq/L Carboxyhemoglobin (0-5) % Sodium (136-145) mEq/L Potassium (3.5-4.5) mEq/L Chloride (98-109) mEq/L Carbon Dioxide (19-29) mEq/L BUN (7-20) mg/dL Creatinine (0.57-1.11) mg/dL Est GFR ( Amer) (> 60) Est GFR (Non-Af Amer) (> 60) BUN/Creatinine Ratio (6-26) Glucose (70-99) mg/dL Calculated Osmolality (280-300) Lactic Acid 2.0 (0.5-2.2) mmol/L Calcium (8.6-10.8) mg/dL Magnesium (1.6-2.6) mg/dL Total Bilirubin (0.2-1.2) mg/dL Direct Bilirubin (0.0-0.5) mg/dL Indirect Bilirubin (0.0-1.2) mg/dL AST (5-34) Units/L ALT (0-55) Units/L Alkaline Phosphatase (38-126) Units/L Ammonia (18-72) mcmol/L Creatine Kinase (29-168) Units/L Troponin I (0-0.03) ng/mL Serum Total Protein (6.0-8.3) g/dL Albumin (3.5-5.0) g/dL Globulin (2.4-3.5) g/dL Albumin/Globulin Ratio (1.1-2.2) Beta-Hydroxybutyric Acd (0.02-0.27) mmol/L TSH (0.350-4.840) mcIU/mL Urine Color (Yellow) Urine Clarity (Clear) Urine pH (5.0-8.0) pH Units Ur Specific Randall (1.010-1.025) Urine Protein (Neg-Trace) mg/dL Urine Glucose (UA) (Normal) mg/dL Urine Ketones (Negative) mg/dL Urine Blood (Negative) Urine Nitrite (Negative) Urine Bilirubin (Negative) Urine Urobilinogen (Normal) mg/dL Ur Leukocyte Esterase (Negative) Urine Microscopic RBC (0-3) per hpf Urine Microscopic WBC (0-3) per hpf Ur Squamous Epith Cells (None-Few) per lpf Urine Bacteria (None-Few) per hpf Hyaline Casts Ur Culture Indicated? (NO) Urine Opiates Screen (Cafiwi=338) ng/mL Ur Barbiturates Screen (Fwsvmz=644) ng/mL Ur Phencyclidine Scrn (Cutoff=25) ng/mL Ur Amphetamines Screen (Apsqar=6515) ng/mL U Benzodiazepines Scrn (Kgcoif=363) ng/mL Urine Cocaine Screen (Cutoff= 300) ng/mL U Marijuana (THC) Screen (Cutoff = 50) ng/mL Ethyl Alcohol (0-10) mg/dL Blood Type A POSITIVE Antibody Screen NEGATIVE - Radiology Data Radiology results reviewed: Yes I reviewed the patient's radiology results. Head CT 02/14/17 11:27 IMPRESSION: Stable appearance of the brain with no acute intracranial abnormality. Stable left parietal lobe infarct. There is age-appropriate cerebral atrophy with evidence of chronic periventricular small vessel ischemic disease. D/ / Lam Monte MD / Lam Monte MD Interpreting Provider: Lam Monte MD Chest X-Ray 02/14/17 11:28 IMPRESSION: 1. NG side hole is at the GE junction and it should be further advanced. 2. Life-support appliances are otherwise in satisfactory position. No pneumothorax. 3. No acute cardiopulmonary process. D/ / Lam Monte MD / Lam Monte MD Interpreting Provider: Lam Monte MD - EKG Data EKG attestation: Yes I reviewed and interpreted this EKG. EKG results narrative: EKG demonstrates sinus rhythm with a rate of 83 bpm. Normal axis. Normal intervals. Normal R-wave progression. Nonspecific ST-T wave changes in the inferior leads. No gross ST elevations or depressions. No acute ischemic findings. Critical Care Time Critical Care Time: Yes Total Critical Care Time: 120 Attestation: The high probability of a clinically significant, sudden or life threatening deterioration of the cardiovascular and neurologic and respiratory system(s) required my full and direct attention, intervention and personal management. The aggregate critical care time was 120 minutes. This time is in addition to time spent performing reported procedures but includes the following: x Data Review and interpretation x Patient assessment and monitoring of vital signs x Documentation x Medication orders and management German - German Situation: Demographics, MOA Background: Presenting Complaint, Relevant PMH, Meds, & Allergies Assessment: Vital Signs, Course and respsone to treatment, Exam Concerns, Patient/Family Expectation, Pertinant Lab Results, Outstanding Labs Recommendation: Barrier(s) to disposition, Recommendation based on pending studies, treatments, or consults SColleen Report Given to: Dr. Alexei Porter Repor Time: 14:44 (Request[address] CT abd pelvis and 1L LR) Attestation Statement - Attestation Attestation: I, Olayinka Kathleen, examined this patient and my medical decision-making was reviewed with the HUMAN RESOURCES BENEFITS ADMINISTRATOR/PA/Advanced Practice Nurse/Resident Physician. I agree with the documented findings, disposition and treatment plan as described except to the extent set forth below. History source: Patient is unable to provide information for this note. Info was gathered from the patient, hospital staff, the patient's chart. History limitations: Patient condition Medications: As per nurses note 47-year-old female brought to the emergency department by EMS unresponsive from home. Patient is unable to give a history regarding her case and presentation. She arrived with feces covering her lower extremities as well as emesis stains around her mouth. According to son she has apparently been in this state over the past 24 -48 hours, he states she has been unable to take her medications over the past few days. Son is unable to give a history regarding her case and presentation due to mental difficulties. Son states that she has had multiple episodes of vomiting over the past few days. EMS states that her sugar read "high" but that her vital signs had been stable in route. BP was initially within normal limits. During treatment her systolic blood pressure dropped however it improved with IV fluids. Central line was placed by the resident with my supervision. She was started on IV fluids however we were unable to give insulin secondary to severe hypokalemia. +elevated trop but unable to to give heparin seconadary to OB positive dark stool in the ED. Patient started on oral and IV potassium replacement in the emergency department. Patient admitted to the ICU for further care.
[2017-02-14 12:51] LABS: ABG Base Excess -6 mEq/L (-2 to 3); ABG HCO3 19 mEq/L (21-27); ABG Oxygen Saturation 98 % (95-98); ABG PCO2 36 mmHg (35-45); ABG PH 7.33 pH Units (7.32-7.45); ABG PO2 104 mmHg (85-104); ABG TCO2 20 mEq/L (20-26)
[2017-02-14 12:52] LABS: Carboxyhemoglobin 1.5 % (0-5)
[2017-02-14 13:09] LABS: Basophils # 0.1 K/mcL (0.0-0.2); Basophils % 0.3 %; Hematocrit 38.8 % (35.3-44.9); Hemoglobin 12.1 g/dL (11.5-15.4); Immature Granulocytes % 0.9 % (0-4); Lymphocytes # 1.7 K/mcL (0.6-4.6); Lymphocytes % 8.2 %; Mean Corpuscular HGB Conc 31.2 g/dL (31.6-35.5); Mean Corpuscular Hemoglobin 28.7 pg (28.0-33.3); Mean Corpuscular Volume 91.9 fL (83.0-100.0); Mean Platelet Volume 10.9 fL (9.4-12.4); Monocytes # 1.4 K/mcL (0.0-1.3); Neutrophils # 17.2 K/mcL (1.6-8.9); Platelet Count 364 K/mcL (140-400); Red Blood Count 4.22 M/mcL (3.82-4.97); Red Cell Distribution Width 13.3 % (11.5-14.5); Segmented Neutrophils % 83.6 %
[2017-02-14 13:16] LABS: INR 1.1; Prothrombin Time 11.7 Seconds (9.4-12.1)
[2017-02-14 13:18] LABS: Activated Partial Thrombo Time 26.1 Seconds (26.0-36.0)
[2017-02-14 13:23] LABS: Alanine Aminotransferase 13 Units/L (0-55); Albumin/Globulin Ratio 0.5 (1.1-2.2); Alkaline Phosphatase 91 Units/L (38-126); Aspartate Amino Transferase 19 Units/L (5-34); BUN/Creatinine Ratio 24 (6-26); Bilirubin,Direct 0.3 mg/dL (0.0-0.5); Bilirubin,Indirect 0.3 mg/dL (0.0-1.2); Bilirubin,Total 0.6 mg/dL (0.2-1.2); Blood Urea Nitrogen 84 mg/dL (7-20); Calcium 8.6 mg/dL (8.6-10.8); Carbon Dioxide 17 mEq/L (19-29); Chloride 97 mEq/L (98-109); Creatine Kinase 248 Units/L (29-168); Globulin 3.8 g/dL (2.4-3.5); Potassium 2.8 mEq/L (3.5-4.5); Sodium 141 mEq/L (136-145); Total Protein 5.7 g/dL (6.0-8.3); eGFR For African Americans 17 (> 60); eGFR For Non-African Americans 14 (> 60)
[2017-02-14 13:24] LABS: Albumin 1.9 g/dL (3.5-5.0); Ethanol < 10 mg/dL (0-10)
[2017-02-14 13:29] LABS: Osmolality,Calculated 369 (280-300)
[2017-02-14 13:39] LABS: Glucose 1019 mg/dL (70-99)
[2017-02-14 13:43] LABS: Thyroid Stimulating Hormone 0.825 mcIU/mL (0.350-4.840)
[2017-02-14] MEDS ORDERED: Pantoprazole 80 MG in Water for inj. (sterile) 10 ML IVP ONE (13:51)
[2017-02-14] MEDS ORDERED: MetroNIDAZOLE 500 MG/100 ML 500 MG/100 ML BAG IVPB ONE (13:52)
[2017-02-14 14:09] LABS: Magnesium 2.1 mg/dL (1.6-2.6)
[2017-02-14 14:33] LABS: Beta-Hydroxybutyric Acid > 2.00 mmol/L (0.02-0.27)
[2017-02-14] MEDS ORDERED: Ringers Solution, Lactated 1,000 ML IVC ONE ×2 (14:37→17:30)
--- NOTE | 2017-02-14 14:57 | Pulmonology History & Physical ---
<Kalia Art W - Last Filed: 02/14/17 16:41> Date of Encounter: 02/14/17 History of Present Illness HPI: Ms. Mckeon is a 47 year old female Medications and Allergies Atorvastatin [Lipitor] 40 mg PO HS 06/18/16 [History] Clopidogrel [Plavix] 75 mg PO DAILY 06/18/16 [History] Fenofibrate [Lofibra] 160 mg PO DAILY 06/18/16 [History] Gabapentin [Neurontin] 400 mg PO TID 06/18/16 [History] Isosorbide MONOnitrate (24 HR) [Imdur] 60 mg PO DAILY 06/18/16 [History] Metoprolol XL (24 HR) Succ [Toprol Xl] 50 mg PO DAILY 06/18/16 [History] Potassium Chloride [Klor-Con Sprinkle] 10 meq PO BID 06/18/16 [History] Budesonide/Formoterol 160/4.5 [Symbicort 160/4.5] 2 puff IH BID 08/20/16 [ History] Nitroglycerin [Nitrostat] 0.4 mg SL Q5M PRN 08/20/16 [History] Albuterol Sulfate [Albuterol Inhaler] 2 puff IH Q4HR PRN 11/22/16 [History] Lisinopril 2.5 mg PO DAILY 11/22/16 [History] Ipratropium/Albuterol Neb [Duoneb] 3 ml IH QIDR inh 11/23/16 [Rx] Ondansetron ODT [Zofran ODT] 4 mg SL Q8HR PRN #20 tab.rapdis 11/23/16 [Rx] Insulin DETEMIR [Levemir] 20 unit SQ HS 12/20/16 [History] Insulin DETEMIR [Levemir] 40 unit SQ QAM 12/20/16 [History] Furosemide [Lasix] 40 mg PO DAILY 02/14/17 [History] Rivaroxaban [Xarelto] 15 mg PO BID 02/14/17 [History] 3 Allergy/AdvReac Type Severity Reaction Status Date / Time Onion Allergy Intermediate Swelling Verified 12/20/16 16:11 of Lip/Tongue/Throat ciprofloxacin [From Cipro] Allergy Hives Verified 12/20/16 16:11 codeine Allergy Hives Verified 12/20/16 16:11 insulin glargine Allergy Hives Verified 12/20/16 16:11 [From Lantus] aspirin AdvReac Nausea Verified 12/20/16 16:11 All Systems: A 10-system review of systems was performed and is negative for pertinent findings except as documented above in the HPI. Physical Examination Vital Signs: Vital Signs, Last 4 Hours Resp BP Pulse Ox 02/14/17 15:50 14 97 02/14/17 15:18 14 100/64 96 Results - Laboratory Findings CBC and BMP: 02/14/17 16:11 02/14/17 12:57 ABG ABG pH 7.33 pH Units (7.32-7.45) 02/14/17 12:48 ABG pCO2 36 mmHg (35-45) 02/14/17 12:48 ABG pO2 104 mmHg (85-104) 02/14/17 12:48 ABG O2 Saturation 98 % (95-98) 02/14/17 12:48 PT/INR, D-dimer PT 11.7 Seconds (9.4-12.1) 02/14/17 12:57 Abnormal lab findings: Abnormal lab results WBC 20.5 K/mcL (4.3-11.1) H 02/14/17 12:57 MCHC 31.2 g/dL (31.6-35.5) L 02/14/17 12:57 Neutrophils # 17.2 K/mcL (1.6-8.9) H 02/14/17 12:57 Monocytes # 1.4 K/mcL (0.0-1.3) H 02/14/17 12:57 ABG HCO3 19 mEq/L (21-27) L 02/14/17 12:48 ABG Base Excess -6 mEq/L (-2 to 3) L 02/14/17 12:48 Potassium 2.8 mEq/L (3.5-4.5) L 02/14/17 12:57 Chloride 97 mEq/L (98-109) L 02/14/17 12:57 Carbon Dioxide 17 mEq/L (19-29) L 02/14/17 12:57 BUN 84 mg/dL (7-20) H 02/14/17 12:57 Creatinine 3.46 mg/dL (0.57-1.11) H 02/14/17 12:57 Est GFR ( Amer) 17 (> 60) L 02/14/17 12:57 Est GFR (Non-Af Amer) 14 (> 60) L 02/14/17 12:57 Glucose 1019 mg/dL (70-99) H* 02/14/17 12:57 POC Glucose > 600 (58-89) H* 02/14/17 16:02 Calculated Osmolality 369 (280-300) H 02/14/17 12:57 Creatine Kinase 248 Units/L (29-168) H 02/14/17 12:57 Troponin I 1.78 ng/mL (0-0.03) H* 02/14/17 12:57 Serum Total Protein 5.7 g/dL (6.0-8.3) L 02/14/17 12:57 Albumin 1.9 g/dL (3.5-5.0) L 02/14/17 12:57 Globulin 3.8 g/dL (2.4-3.5) H 02/14/17 12:57 Albumin/Globulin Ratio 0.5 (1.1-2.2) L 02/14/17 12:57 Beta-Hydroxybutyric Acd > 2.00 mmol/L (0.02-0.27) H 02/14/17 12:57 Urine Clarity Cloudy (Clear) A 02/14/17 11:32 Ur Specific [place] 1.028 (1.010-1.025) H 02/14/17 11:32 Urine Protein >=1000 mg/dL (Neg-Trace) H 02/14/17 11:32 Urine Glucose (UA) >=1000 mg/dL (Normal) H 02/14/17 11:32 Urine Ketones 15 mg/dL (Negative) H 02/14/17 11:32 Urine Blood Moderate (Negative) H 02/14/17 11:32 Urine Microscopic RBC 5-15 per hpf (0-3) H 02/14/17 11:32 Urine Microscopic WBC 15-30 per hpf (0-3) H 02/14/17 11:32 Ur Squamous Epith Cells Many per lpf (None-Few) H 02/14/17 11:32 - Attending Attestation I examined this patient and my medical decision-making was reviewed with the Resident Physician. I agree with the documented findings, disposition and treatment plan as described except to the extent set forth below. We independently had [id number] contact with the patient I spent 33min of Critical Care time with this patient. It involved decision making of high complexity to assess, manipulate, and support vital organ system failure and/or to prevent further life threatening deterioration of the patient' s condition. The time involved in the performance of separately reportable procedures was not counted toward critical care time. Patient seen and examined at bedside Labs, radiology, chart personally reviewed. [employer]IVE: Acute metabolic encephalopathy secondary to DKA head CT within normal limits continue to monitor. History of progressive zach weakness will need Neuro consult prior to discharge. Pulm: Acute respiratory failure requiring intubation ABG shows acceptable oxygenation and ventilation chest x-ray without evidence of pneumonia Cards: An STEMI possible demand ischemia stat echo cardiology consulted there is a concern for acute GI bleed for which we are holding full ACS protocol. Holding ASA because of listed allergy. Beta carlos will be administered when blood pressure more stable. She has a history of HFrEF we are repleting volume judiciously FEN-GI: BID Ppi prophylaxis given possible GI hemorrhage although I suspect that this is more chronic anemia despite guaiac-positive stool we will possibly need GI consult based upon clinical course. Renal: LANETTE on CKD prerenal azotemia suspected renal dose all medications monitor electrolytes replace per protocol hypokalemia aggressive repletion because of need of insulin infusion will check electrolyte panel every 2 hours based upon clinical course ID: Severe sepsis of unclear etiology treating broadly with antibiotics possible GI source CT abdomen pending send stool studies Heme/Onc: Chronic anemia H&H is actually higher than baseline which I suspect is related to dehydration guaiac stool positive with dark stools noted in the emergency department of unclear significance I do not feel that she is having an active gastrointestinal hemorrhage however we will need to monitor her H&H frequently. Mechanical DVT prophylaxis for now. She has a history of upper extremity DVT in the recent past although this is more than 3 months ago and she was on NOAC holding this acutely it is unclear if she was taking this or not. Endo: Acute DKA start protocol after potassium replacement frequent checking of electrolytes Integ/MSK: Skin Care per routine ICU Nursing Protocol to prevent ulcers. Lines: All lines examined without evidence of infection : Dispo: Remain in the ICU for ongoing critical illness CODE: Full code <Tere Stubbs - Last Filed: 02/14/17 17:05> Date of Encounter: 02/14/17 Time of Encounter: 14:55 Assessment and Plan (1) DKA (diabetic ketoacidoses) Current visit: Yes Status: Acute History of DM with glucose 1019 in ED. Replete K, per protocol. Following adequate repletion, low dose insulin, per DKA protocol - do NOT drop rate faster 50-100/hr. Monitor I/O, repeat labs with judicious IV Fluid repletion due to cardiac co-morbidity with CHF and Hx of multiple KS Qualifiers: Diabetes mellitus type: other specified (including LETY) Diabetes mellitus complication detail: without coma Qualified Code(s): E13.10 - Other specified diabetes mellitus with ketoacidosis without coma (2) Encephalopathy Current visit: Yes Status: Acute Likely 2/2 to metabolic acidosis. (3) Respiratory failure requiring intubation Current visit: Yes Status: Acute ABG pH 7.33/paCO2 36/ HCO3 19, consistent with Anion Gap Metabolic Acidosis, with Appropriately Compensated by Respiratory Alkalosis, on mechanical ventilation. ABG in AM. (4) Hypokalemia Current visit: Yes Status: Acute K q 2 hrs, for the first 2-4 hours with timed BMP Electrolyte protocols orders (5) NSTEMI (non-ST elevated myocardial infarction) Current visit: No Status: Acute S/p multiple PCI. Last LHC in 2013. LHC revealed severe two vessel coronary artery disease. Patient had successful PTCA/Drug-Eluting Stent placement in the proximal and distal Circ ISR. Long occluded RCA -instent - from ostium to PDA with left to right collaterals, 20% stenosis in the Proximal LAD. Plan: ED EKG reviewed. QTc 500. Holding heparin acutely for possibility of GI hemorrhage, however may be risk/benefit may outweigh risk. Cardiology on consult. (6) Chronic systolic CHF (congestive heart failure) Current visit: Yes Status: Acute Hx of CHF TTE 08/09/2016 showed an EF of 35-40%. There was a large pleural effusion. This was a limited study. TTE 06/18/2016EF 40% with global systolic reduction and variations and wall motion abnormality as seen on prior echocardiogram. Mild to moderate mitral regurgitation, mild tricuspid regurgitation, mild pulmonic regurgitation. There is no pulmonary hypertension. Trivial pericardial effusion. Plan: Stat Echo pending. Sepsis may be 2/2 to poor intake and dehydration, with some fluid requirement, however complicated with CHF. Cardiology on consult , appreciate recs. (7) Severe sepsis Current visit: Yes Status: Acute CT abdomen/pelvis reviewed. Sputum culture, blood culture, lactate normal. (8) Chronic anemia Current visit: Yes Status: Acute Monitoring H/H, timed CBC. (9) PVD (peripheral vascular disease) Current visit: No Status: Chronic (10) History of venous thromboembolism Current visit: Yes Status: Acute (11) Chronic inflammatory demyelinating polyneuropathy Current visit: Yes Status: Acute (12) LANETTE (acute kidney injury) Current visit: Yes Status: Acute Likely 2/2 to prerenal azotemia, monitoring BMP closely. (13) Living accommodation issues Current visit: Yes Status: Chronic Physical exam with History of Present Illness Chief complaint: DKA, Respiratory Failure HPI: Ms. Mckeon is a 47 year old female with a past medical history of CAD s/p multiple PCI, systolic CHF, EF 35-40%, diabetic nephropathy, DM, COPD, CVA, and DVT on xarelto presenting with AMS. Per ED note, Upon presentation the patient was noted to be altered and not protecting her airway. There was emesis to her face and stool covering her lower extremities. Patient was intubated due to airway protection and neurologic status. Glucose of 1019 in ED. K of 3.2. CT and CXR unremarkable. Per son, pt has not taken insulin since 1 month ago. Past Med Surg Social Fam HX - Past Medical History Medical history: cardiomyopathy, cirrhosis, CHF, COPD, coronary artery disease, CVA, DVT, diabetes, peripheral artery disease, renal disease, TIA, other Psychiatric history: anxiety, depression - Past Surgical History Surgical History: appendectomy, cholecystectomy, hysterectomy, orthopedic, other - Social History Smoking Status: Current every day smoker Smokeless Tobacco Status: No Alcohol use: none Drug use: none - Family History Father Adopted: No Family Member Ethnicity: Non- Living Status: Hx Family Cardiac Disorders: Yes Hx Family Respiratory Disorders: Yes Hx Family Cancer: Yes Hx Family Endocrine Disorder: Yes Hx Family Neurologic Disorders: No ROS unobtainable: due to endotracheal tube, due to mental status All Systems: A 10-system review of systems was performed and is negative for pertinent findings except as documented above in the HPI. Review of Systems: Unable to obtain due to altered mental status. Physical Examination General appearance: other (sedated ) Eyes: other (Some accomodation to light, greater to L pupils ) ENT: oropharynx dry, other (intubated ) Neck: supple Auscultation: bilateral: diminished breath sounds Cardiovascular: regular rate and rhythm Gastrointestinal: hypoactive bowel sounds, soft, non-distended Integumentary: other (dirt-covered skin ) Extremities: cool (diminished dorsalis pedis pulses b/l), edema (b/l pedal edema ) Musculoskeletal: other (missing R great toe ) unable to assess due to mental status Results - Laboratory Findings CBC and BMP: 02/14/17 16:11 02/14/17 16:11 ABG ABG pH 7.33 pH Units (7.32-7.45) 02/14/17 12:48 ABG pCO2 36 mmHg (35-45) 02/14/17 12:48 ABG pO2 104 mmHg (85-104) 02/14/17 12:48 ABG O2 Saturation 98 % (95-98) 02/14/17 12:48 PT/INR, D-dimer PT 11.7 Seconds (9.4-12.1) 02/14/17 12:57 Abnormal lab findings: Abnormal lab results WBC 20.5 K/mcL (4.3-11.1) H 02/14/17 12:57 MCHC 31.2 g/dL (31.6-35.5) L 02/14/17 12:57 Neutrophils # 17.2 K/mcL (1.6-8.9) H 02/14/17 12:57 Monocytes # 1.4 K/mcL (0.0-1.3) H 02/14/17 12:57 ABG HCO3 19 mEq/L (21-27) L 02/14/17 12:48 ABG Base Excess -6 mEq/L (-2 to 3) L 02/14/17 12:48 Potassium 2.8 mEq/L (3.5-4.5) L 02/14/17 12:57 Chloride 97 mEq/L (98-109) L 02/14/17 12:57 Carbon Dioxide 17 mEq/L (19-29) L 02/14/17 12:57 BUN 84 mg/dL (7-20) H 02/14/17 12:57 Creatinine 3.46 mg/dL (0.57-1.11) H 02/14/17 12:57 Est GFR ( Amer) 17 (> 60) L 02/14/17 12:57 Est GFR (Non-Af Amer) 14 (> 60) L 02/14/17 12:57 Glucose 1019 mg/dL (70-99) H* 02/14/17 12:57 Calculated Osmolality 369 (280-300) H 02/14/17 12:57 Creatine Kinase 248 Units/L (29-168) H 02/14/17 12:57 Troponin I 1.78 ng/mL (0-0.03) H* 02/14/17 12:57 Serum Total Protein 5.7 g/dL (6.0-8.3) L 02/14/17 12:57 Albumin 1.9 g/dL (3.5-5.0) L 02/14/17 12:57 Globulin 3.8 g/dL (2.4-3.5) H 02/14/17 12:57 Albumin/Globulin Ratio 0.5 (1.1-2.2) L 02/14/17 12:57 Beta-Hydroxybutyric Acd > 2.00 mmol/L (0.02-0.27) H 02/14/17 12:57 Urine Clarity Cloudy (Clear) A 02/14/17 11:32 Ur Specific [place] 1.028 (1.010-1.025) H 02/14/17 11:32 Urine Protein >=1000 mg/dL (Neg-Trace) H 02/14/17 11:32 Urine Glucose (UA) >=1000 mg/dL (Normal) H 02/14/17 11:32 Urine Ketones 15 mg/dL (Negative) H 02/14/17 11:32 Urine Blood Moderate (Negative) H 02/14/17 11:32 Urine Microscopic RBC 5-15 per hpf (0-3) H 02/14/17 11:32 Urine Microscopic WBC 15-30 per hpf (0-3) H 02/14/17 11:32 Ur Squamous Epith Cells Many per lpf (None-Few) H 02/14/17 11:32 - Diagnostic Findings Chest x-ray: report reviewed, image reviewed CT scan - chest: report reviewed, image reviewed
[2017-02-14] MEDS ORDERED: Naloxone 0.4 MG/ML INJ IVP PRN (16:20)
[2017-02-14] MEDS ORDERED: Pantoprazole 40 MG VIAL IVP ONE (16:23)
[2017-02-14] MEDS ORDERED: Lacri-Lube 3.5 GM TUBE BOTH EYES PRN (16:25)
[2017-02-14 16:28] LABS: Basophils # 0.1 K/mcL (0.0-0.2); Basophils % 0.3 %; Hematocrit 34.5 % (35.3-44.9); Immature Granulocytes % 1.2 % (0-4); Lymphocytes # 1.4 K/mcL (0.6-4.6); Lymphocytes % 6.8 %; Mean Corpuscular HGB Conc 31.9 g/dL (31.6-35.5); Mean Corpuscular Hemoglobin 29.3 pg (28.0-33.3); Mean Corpuscular Volume 91.8 fL (83.0-100.0); Mean Platelet Volume 10.7 fL (9.4-12.4); Monocytes # 1.7 K/mcL (0.0-1.3); Monocytes % 8.7 %; Neutrophils # 16.5 K/mcL (1.6-8.9); Platelet Count 311 K/mcL (140-400); Red Blood Count 3.76 M/mcL (3.82-4.97); Red Cell Distribution Width 13.4 % (11.5-14.5)
[2017-02-14 16:42] LABS: BUN/Creatinine Ratio 25 (6-26); Blood Urea Nitrogen 85 mg/dL (7-20); Calcium 7.9 mg/dL (8.6-10.8); Carbon Dioxide 17 mEq/L (19-29); Chloride 99 mEq/L (98-109); Potassium 3.2 mEq/L (3.5-4.5); Sodium 139 mEq/L (136-145); eGFR For African Americans 18 (> 60); eGFR For Non-African Americans 15 (> 60)
[2017-02-14 16:43] LABS: Lipase < 10 Units/L (8-78)
[2017-02-14 16:57] LABS: Osmolality,Calculated 366 (280-300)
[2017-02-14 17:00] LABS: Glucose 1040 mg/dL (70-99)
[2017-02-14] MEDS ORDERED: Vancomycin 1,000 MG in D5% in Water 250 ML IVPB SCH (17:00)
[2017-02-14] MEDS ORDERED: Potassium Chloride 40 MEQ/200 ML BAG IVPB ONE ×2 (17:06→17:10)
[2017-02-14] MEDS ORDERED: *HR* Dextrose 50 % in Water (Syg) 50 ML SYRINGE IVP PRN (17:07)
[2017-02-14] MEDS ORDERED: Insulin Human Regular 100 UNIT in 0.9 % Sodium Chloride 100 ML IVC SCH (17:15)
[2017-02-14] MEDS ORDERED: *HR* FentaNYL (PF) 100 MCG/2 ML VIAL IVP PRN (17:36)
[2017-02-14] MEDS ORDERED: Ipratropium/Albuterol Neb 3 ML IH PRN (17:38)
[2017-02-14] MEDS: Insulin Human Regular 150 UNIT in 0.9 % Sodium Chloride 150 ML IVC SCH (18:15)
--- NOTE | 2017-02-14 18:57 | Event Note ---
Date of Encounter: 02/14/17 Time of Encounter: 18:53 - Cardiology Event Note Briefly discussed patient's clinical presentation with Dr. Art at his request this evening. Patient is a known diabetic with history of ICM, EF 40-45 %. She presented with AMS, emesis and was intubated for airway protection. She was noted to be in DKA with ARF on CKD. Troponin elevated to 1.78. ECG with nonspecific ST findings, somewhat improved when compared to prior ECG from December 2016. No new acute ECG findings. ICU team concerned for NSTEMI given troponin elevation but also possible GI bleeding. Agreed with Dr. Art that heparin should be held at this time until further workup for GIB is complete. Patient also has allergy to aspirin. Recommend completing GI workup as soon as possible. Order echo. Would start heparin drip and restart plavix when safe. Formal consult to be done tomorrow.
[2017-02-14 19:31] LABS: Calcium 8.1 mg/dL (8.6-10.8); Potassium 3.9 mEq/L (3.5-4.5)
[2017-02-14] MEDS ORDERED: 0.9 % Sodium Chloride 1,000 ML ONE ×2 (20:04→20:17)
[2017-02-14] MEDS: Dexmedetomidine HCl 400 MCG/100 ML MLS IVC SCH (20:08)
[2017-02-14] MEDS: Norepinephrine 4 MG in D5% in Water 250 ML IVC SCH ×2 (20:08→20:34)
[2017-02-14] MEDS: Phenylephrine 10 MG in D5% in Water 250 ML IVC SCH (20:24)
[2017-02-14] MEDS: Lacri-Lube 3.5 GM TUBE BOTH EYES SCH ×2 (20:25→23:13)
[2017-02-14] MEDS: Chlorhexidine Rinse 15 ML MOUTHWASH MM SCH (20:25)
[2017-02-14 20:51] LABS: Calcium 7.5 mg/dL (8.6-10.8); Potassium 3.5 mEq/L (3.5-4.5)
[2017-02-14 21:11] LABS: Adenovirus F 40/41 PCR Not detected (Not detect); Astrovirus PCR Not detected (Not detect); C.difficile Toxin A/B by PCR Not detected (Not detect); Campylobacter by PCR Not detected (Not detect); Cryptosporidium by PCR Not detected (Not detect); Cyclospora cayetanensis PCR Not detected (Not detect); E. coli O157 by PCR Not detected (Not detect); Entamoeba histolytica PCR Not detected (Not detect); Enteroaggregative E.coli(EAEC) Not detected (Not detect); Enteropathogenic E.coli(EPEC) Not detected (Not detect); Enterotoxigenic E.coli (ETEC) Not detected (Not detect); Giardia lamblia PCR Not detected (Not detect); Norovirus GI/GII PCR Not detected (Not detect); Plesiomonas shigelloides PCR Not detected (Not detect); Rotavirus A PCR Not detected (Not detect); Salmonella PCR Not detected (Not detect); Sapovirus PCR Not detected (Not detect); Shig/EnteroinvasiveE coli EIEC Not detected (Not detect); Shigalike tox-prod E coli STEC Not detected (Not detect); Vibrio PCR Not detected (Not detect); Vibrio cholerae PCR Not detected (Not detect); Yersinia enterocolitica PCR Not detected (Not detect)
[2017-02-14] MEDS ORDERED: 0.45 % Sodium Chloride w/KCl 20 MEQ/1,000 ML MLS IVC SCH (21:45)
[2017-02-14] MEDS: Potassium Chloride 40 MEQ/200 ML BAG IVPB PRN (22:11)
[2017-02-14 22:16] LABS: Hematocrit 32.4 % (35.3-44.9); Hemoglobin 10.6 g/dL (11.5-15.4)
[2017-02-14 22:27] LABS: Calcium 7.7 mg/dL (8.6-10.8); Potassium 3.4 mEq/L (3.5-4.5)
[2017-02-14] MEDS: Budesonide/Formoterol 160/4.5 MDI IH SCH (22:36)
[2017-02-14] MEDS: MetroNIDAZOLE 500 MG/100 ML 500 MG/100 ML BAG IVPB SCH (23:13)
[2017-02-15] MEDS: Insulin Human Regular 150 UNIT in 0.9 % Sodium Chloride 150 ML IVC SCH (00:09)
[2017-02-15] MEDS: Phenylephrine 10 MG in D5% in Water 250 ML IVC SCH ×3 (00:10→07:51)
[2017-02-15] MEDS ORDERED: Piperacillin/Tazobactam 3.375 GM in D5% in Water 50 ML IVPB SCH (01:00)
[2017-02-15 01:15] LABS: Calcium 7.6 mg/dL (8.6-10.8); Potassium 3.8 mEq/L (3.5-4.5)
[2017-02-15 02:20] LABS: Hematocrit 30.2 % (35.3-44.9); Hemoglobin 10.1 g/dL (11.5-15.4)
[2017-02-15 02:23] LABS: Calcium 7.4 mg/dL (8.6-10.8); Potassium 3.5 mEq/L (3.5-4.5)
[2017-02-15] MEDS ORDERED: Potassium Chloride 40 MEQ/200 ML BAG IVPB PRN ×2 (02:34→06:36)
[2017-02-15] MEDS: Potassium Chloride 40 MEQ/200 ML BAG IVPB PRN (02:39)
[2017-02-15] MEDS: Lacri-Lube 3.5 GM TUBE BOTH EYES SCH ×6 (02:46→23:03)
[2017-02-15 03:46] LABS: INR 1.1; Prothrombin Time 12.4 Seconds (9.4-12.1)
[2017-02-15 03:48] LABS: Magnesium 1.3 mg/dL (1.6-2.6)
[2017-02-15 03:49] LABS: Ionized Calcium 1.05 mmol/L (1.15-1.35)
[2017-02-15 03:53] LABS: Acinetobacter baumannii by PCR Not Detected (Not Detect); Enterococcus by PCR ***DETECTED*** (Not Detect); Escherichia coli by PCR ***DETECTED*** (Not Detect); Staphylococcus aureus by PCR Not Detected (Not Detect); Streptococcus agalactiae(B)PCR Not Detected (Not Detect); Streptococcus by PCR Not Detected (Not Detect); Streptococcus pneumoniae PCR Not Detected (Not Detect); Streptococcus pyogenes (A) PCR Not Detected (Not Detect); blaKPC Carbapenem-Resist Gene Not Detected (Not Detect); mecA Methicillin-Resist Gene ***DETECTED*** (Not Detect); vanA/B Vancomycin-Resist Genes Not Detected (Not Detect)
[2017-02-15 03:54] LABS: Albumin 1.5 g/dL (3.5-5.0); Albumin/Globulin Ratio 0.5 (1.1-2.2); Bilirubin,Direct 0.2 mg/dL (0.0-0.5); Bilirubin,Total 0.2 mg/dL (0.2-1.2); Calcium 7.5 mg/dL (8.6-10.8); Globulin 3.1 g/dL (2.4-3.5); Total Protein 4.6 g/dL (6.0-8.3)
[2017-02-15 03:54] LABS: Candida albicans by PCR Not Detected (Not Detect); Candida glabrata by PCR Not Detected (Not Detect); Candida krusei by PCR Not Detected (Not Detect); Candida parapsilosis by PCR Not Detected (Not Detect); Candida tropicalis by PCR Not Detected (Not Detect); Klebsiella oxytoca by PCR Not Detected (Not Detect); Klebsiella pneumoniae by PCR Not Detected (Not Detect); Pseudomonas aeruginosa by PCR Not Detected (Not Detect); Serratia marcescens by PCR Not Detected (Not Detect)
[2017-02-15 04:06] LABS: Basophils % 0.1 %; Hematocrit 30.8 % (35.3-44.9); Hemoglobin 10.1 g/dL (11.5-15.4); Immature Granulocytes % 0.5 % (0-4); Lymphocytes # 1.7 K/mcL (0.6-4.6); Lymphocytes % 7.4 %; Mean Corpuscular HGB Conc 32.8 g/dL (31.6-35.5); Mean Corpuscular Hemoglobin 28.9 pg (28.0-33.3); Mean Platelet Volume 10.6 fL (9.4-12.4); Monocytes # 1.8 K/mcL (0.0-1.3); Neutrophils # 18.8 K/mcL (1.6-8.9); Platelet Count 327 K/mcL (140-400); Red Cell Distribution Width 13.2 % (11.5-14.5)
[2017-02-15] MEDS ORDERED: Magnesium Sulfate 2 GM in D5% in Water 100 ML IVPB ONE (04:11)
[2017-02-15 05:14] LABS: ABG Base Excess -3 mEq/L (-2 to 3); ABG HCO3 21 mEq/L (21-27); ABG Oxygen Saturation 96 % (95-98); ABG PCO2 30 mmHg (35-45); ABG PH 7.44 pH Units (7.32-7.45); ABG PO2 78 mmHg (85-104); ABG TCO2 22 mEq/L (20-26); Blood Gas Modality ASSIST CONTROL; Blood Gas PEEP 5 cm H2O; Blood Gas Respiration Rate 14; Blood Gas VT 450 cc
[2017-02-15 06:04] LABS: Calcium 7.6 mg/dL (8.6-10.8); Potassium 4.2 mEq/L (3.5-4.5)
--- NOTE | 2017-02-15 06:15 | Electrocardiograph Report ---
[facility] Test Date: 2017-02-14 Pat Name: Antionette Mckeon Department: 102 Room: 12 Gender: F Vba Developer: Kelsey : 1970 Requested By: Victoriano Guerrero Order Number: [id number] Reading MD: Tree Abreu MD Measurements Intervals [place] Rate: 83 P: 81 CT: 167 QRS: 74 QRSD: 116 T: 9 QT: 460 QTc: 500 Interpretive Statements SINUS RHYTHM LEFT ATRIAL ENLARGEMENT MODERATE INTRAVENTRICULAR CONDUCTION DELAY NONSPECIFIC ST & T-WAVE ABNORMALITY PROLONGED QT INTERVAL Electronically Signed On 02-15-2017 6:13:18 EST by Tree Abreu MD
[2017-02-15] MEDS ORDERED: Potassium Phosphate 44 MEQ in 0.9 % Sodium Chloride 250 ML IVPB PRN (06:36)
[2017-02-15] MEDS ORDERED: Dextrose Gel 15 GM PO PRN ×2 (08:19)
[2017-02-15] MEDS ORDERED: D5% in Water 1,000 ML IVC PRN (08:19)
[2017-02-15] MEDS: Chlorhexidine Rinse 15 ML MOUTHWASH MM SCH ×2 (08:20→19:53)
[2017-02-15] MEDS: Pantoprazole 40 MG VIAL IVP SCH ×2 (08:20→19:53)
[2017-02-15] MEDS: MetroNIDAZOLE 500 MG/100 ML 500 MG/100 ML BAG IVPB SCH (08:22)
[2017-02-15] MEDS: Budesonide/Formoterol 160/4.5 MDI IH SCH ×2 (08:22→20:04)
[2017-02-15] MEDS: Vasopressin 40 UNIT in D5% in Water 100 ML IV SCH (08:45)
--- NOTE | 2017-02-15 08:49 | Pulmonology Progress Note ---
<Krishna Michaud - Last Filed: 02/15/17 09:32> Date of Encounter: 02/15/17 Time of Encounter: 08:47 Assessment and Plan (1) DKA (diabetic ketoacidoses) Current Visit: Yes Status: Acute Resolved at this time. Anion gap is closed, sugar is down to 142. We will transition to sliding scale insulin every 4 hours and adjust as needed. Qualifiers: Diabetes mellitus type: other specified (including LETY) Diabetes mellitus complication detail: without coma Qualified Code(s): E13.10 - Other specified diabetes mellitus with ketoacidosis without coma (2) Encephalopathy Current Visit: Yes Status: Acute Likely metabolic. Patient remains minimally responsive despite no sedation overnight. Patient has roving eye movements with oral routing but no purposeful movements or withdrawal from painful stimuli. Head CT on arrival showed no acute intracranial abnormality. Will obtain EEG and consult neurology. (3) Acute and chronic respiratory failure ([id number]) Current Visit: No Status: Acute Requiring intubation, likely related to metabolic encephalopathy. Patient was apparently vomiting in the emergency department so she was intubated to protect her airway. ABG is stable. Continue mechanical ventilation. Patient is able to breathe over the vent. Qualifiers: Respiratory failure complication: hypoxia Qualified Code(s): J96.21 - Acute and chronic respiratory failure with hypoxia (4) NSTEMI (non-ST elevated myocardial infarction) Current Visit: No Status: Acute Likely related to demand ischemia in the setting of DKA, respiratory failure, acute encephalopathy however ACS cannot be completely ruled out. Troponin was 1.78 on admission and is trending down. Cardiology is been consulted. We discussed the case with them on admission and given the Hemoccult positive stool and mild anemia we did not anticoagulate with heparin. Patient also has listed aspirin allergy. Echo pending. (5) Chronic anemia Current Visit: Yes Status: Acute Hemoglobin slightly decreased from admission but stable. Appears to be back at patient's baseline. Hemoglobin was slightly elevated compared to baseline on admission likely related to extreme dehydration. Occult stool was positive however there has been no gross blood and given that her hemoglobin has been stable and she does not appear to be actively bleeding. We will continue to monitor CBC. (6) Chronic systolic CHF (congestive heart failure) Current Visit: Yes Status: Acute Mild peripheral edema noted on exam likely related to fluid resuscitation in the emergency department. We will hold off on further crystalloid fluids, will give 500 mL 5% albumin. Echocardiogram pending. (7) Hypokalemia Current Visit: Yes Status: Acute Resolved at this time. No EKG changes noted. Continue to monitor. (8) Living accommodation issues Current Visit: Yes Status: Chronic Patient currently lives alone with a adult son who appears to have some degree of cognitive impairment and struggles to understand the seriousness of the patient's critical illness. We will consult social work. (9) Chronic inflammatory demyelinating polyneuropathy Current Visit: Yes Status: Acute (10) PVD (peripheral vascular disease) Current Visit: No Status: Chronic Subjective Principal diagnosis: Acute respiratory failure, hyperglycemia Interval history: Patient seen and examined at bedside. She remains intubated. She is on no sedating medication and there is minimal response to painful stimuli. Objective PUL Vital signs: Last Vital Signs Temp 97.1 F L 02/15/17 07:29 Pulse 89 02/15/17 08:00 Resp 26 02/15/17 08:22 BP 91/46 02/15/17 08:22 Pulse Ox 99 02/15/17 08:22 General appearance: comatose ENT: oropharynx dry Effort: normal Ventilator Settings Ventilator Settings: Ventilator Settings, Last 8 Hours Ventilator Mode VC+ Ventilator Mode VC+ Ventilator Mode VC+ Ventilator Mode VC+ Ventilator Mode VC+ Ventilator Mode VC+ Ventilator Mode VC+ Ventilator Mode VC+ Ventilator Mode VC+ Ventilator Mode VC+ Ventilator Mode VC+ Ventilator Mode VC+ Ventilator Mode VC+ Ventilator Tidal Volume 450 Setting Ventilator Tidal Volume 450 Setting Ventilator Tidal Volume 450 Setting Ventilator Tidal Volume 450 Setting Ventilator Tidal Volume 450 Setting Ventilator Tidal Volume 450 Setting Ventilator Tidal Volume 450 Setting Ventilator Tidal Volume 450 Setting Ventilator Tidal Volume 450 Setting Ventilator Tidal Volume 450 Setting Ventilator Tidal Volume 450 Setting Ventilator Tidal Volume 450 Setting Ventilator Tidal Volume 450 Setting Ventilator Respiratory Rate 14 Setting Ventilator Respiratory Rate 14 Setting Ventilator Respiratory Rate 14 Setting Ventilator Respiratory Rate 14 Setting Ventilator Respiratory Rate 14 Setting Ventilator Respiratory Rate 14 Setting Ventilator Respiratory Rate 14 Setting Ventilator Respiratory Rate 14 Setting Ventilator Respiratory Rate 14 Setting Ventilator Respiratory Rate 14 Setting Ventilator Respiratory Rate 14 Setting Ventilator Respiratory Rate 14 Setting Ventilator Respiratory Rate 14 Setting Actual Respiratory Rate 27 Actual Respiratory Rate 24 Actual Respiratory Rate 24 Actual Respiratory Rate 23 Actual Respiratory Rate 24 Actual Respiratory Rate 26 Actual Respiratory Rate 26 Actual Respiratory Rate 23 Actual Respiratory Rate 23 Actual Respiratory Rate 22 Actual Respiratory Rate 21 Actual Respiratory Rate 28 Positive End Expiratory 5 Pressure Positive End Expiratory 5 Pressure Positive End Expiratory 5 Pressure Positive End Expiratory 5 Pressure Positive End Expiratory 5 Pressure Positive End Expiratory 5 Pressure Positive End Expiratory 5 Pressure Positive End Expiratory 5 Pressure Positive End Expiratory 5 Pressure Positive End Expiratory 5 Pressure Positive End Expiratory 5 Pressure Positive End Expiratory 5 Pressure Positive End Expiratory 5 Pressure Peak Inspiratory Airway 26 Pressure Peak Inspiratory Airway 26 Pressure Peak Inspiratory Airway 23 Pressure Peak Inspiratory Airway 25 Pressure Peak Inspiratory Airway 23 Pressure Peak Inspiratory Airway 24 Pressure Peak Inspiratory Airway 25 Pressure Peak Inspiratory Airway 22 Pressure Peak Inspiratory Airway 19 Pressure Peak Inspiratory Airway 20 Pressure Peak Inspiratory Airway 21 Pressure Peak Inspiratory Airway 21 Pressure Results - Laboratory Findings CBC and BMP: 02/15/17 03:30 02/15/17 05:40 ABG ABG pH 7.44 pH Units (7.32-7.45) 02/15/17 05:10 ABG pCO2 30 mmHg (35-45) L 02/15/17 05:10 ABG pO2 78 mmHg (85-104) L 02/15/17 05:10 ABG O2 Saturation 96 % (95-98) 02/15/17 05:10 PT/INR, D-dimer PT 12.4 Seconds (9.4-12.1) H 02/15/17 03:30 Abnormal lab findings: Abnormal lab results WBC 22.4 K/mcL (4.3-11.1) H 02/15/17 03:30 RBC 3.50 M/mcL (3.82-4.97) L 02/15/17 03:30 Hgb 10.1 g/dL (11.5-15.4) L 02/15/17 03:30 Hct 30.8 % (35.3-44.9) L 02/15/17 03:30 Neutrophils # 18.8 K/mcL (1.6-8.9) H 02/15/17 03:30 Monocytes # 1.8 K/mcL (0.0-1.3) H 02/15/17 03:30 PT 12.4 Seconds (9.4-12.1) H 02/15/17 03:30 ABG pCO2 30 mmHg (35-45) L 02/15/17 05:10 ABG pO2 78 mmHg (85-104) L 02/15/17 05:10 ABG Base Excess -3 mEq/L (-2 to 3) L 02/15/17 05:10 Chloride 111 mEq/L (98-109) H 02/15/17 05:40 BUN 78 mg/dL (7-20) H 02/15/17 05:40 Creatinine 3.07 mg/dL (0.57-1.11) H 02/15/17 05:40 Est GFR ( Amer) 20 (> 60) L 02/15/17 05:40 Est GFR (Non-Af Amer) 16 (> 60) L 02/15/17 05:40 Glucose 255 mg/dL (70-99) H 02/15/17 05:40 POC Glucose 142 (58-89) H 02/15/17 08:13 Calculated Osmolality 326 (280-300) H 02/15/17 05:40 Lactic Acid 5.2 mmol/L (0.5-2.2) H* 02/15/17 06:34 Calcium 7.6 mg/dL (8.6-10.8) L 02/15/17 05:40 Ionized Calcium 1.05 mmol/L (1.15-1.35) L 02/15/17 03:30 Phosphorus 2.0 mg/dL (2.3-4.7) L 02/15/17 03:30 Magnesium 1.3 mg/dL (1.6-2.6) L 02/15/17 03:30 Creatine Kinase 248 Units/L (29-168) H 02/14/17 12:57 Troponin I 0.94 ng/mL (0-0.03) H* 02/14/17 22:00 Serum Total Protein 4.6 g/dL (6.0-8.3) L 02/15/17 03:30 Albumin 1.5 g/dL (3.5-5.0) L D 02/15/17 03:30 Albumin/Globulin Ratio 0.5 (1.1-2.2) L 02/15/17 03:30 Beta-Hydroxybutyric Acd > 2.00 mmol/L (0.02-0.27) H 02/14/17 12:57 Urine Clarity Cloudy (Clear) A 02/14/17 11:32 Ur Specific [place] 1.028 (1.010-1.025) H 02/14/17 11:32 Urine Protein >=1000 mg/dL (Neg-Trace) H 02/14/17 11:32 Urine Glucose (UA) >=1000 mg/dL (Normal) H 02/14/17 11:32 Urine Ketones 15 mg/dL (Negative) H 02/14/17 11:32 Urine Blood Moderate (Negative) H 02/14/17 11:32 Urine Microscopic RBC 5-15 per hpf (0-3) H 02/14/17 11:32 Urine Microscopic WBC 15-30 per hpf (0-3) H 02/14/17 11:32 Ur Squamous Epith Cells Many per lpf (None-Few) H 02/14/17 11:32 Stool Occult Blood Positive (Negative) A 02/14/17 19:32 Enterobacteriac sp PCR DETECTED (Not Detect) A 02/14/17 12:50 E. cloacae complex PCR DETECTED (Not Detect) A 02/14/17 12:50 Enterococcus sp PCR DETECTED (Not Detect) A 02/14/17 12:50 E. coli (PCR) DETECTED (Not Detect) A 02/14/17 12:50 Staphylococcus sp PCR DETECTED (Not Detect) A 02/14/17 12:50 mecA-Methicil Res Gene DETECTED (Not Detect) A 02/14/17 12:50 - Clinical Findings Intake & Output: Intake & Output 02/14/17 02/15/17 02/15/17 23:59 07:59 15:59 Intake Total 2087.5 / 2087.5 1273.5 / 1273.5 7.7 / 7.7 Output Total 850 / 850 275 / 275 Balance 1237.5 / 1237.5 998.5 / 998.5 7.7 / 7.7 Consult Discharge Plan - Plan Referrals: NONE,PCP [Primary Care Provider] - <Kalia Art W - Last Filed: 02/15/17 12:58> Date of Encounter: 02/15/17 Objective PUL Vital signs: Last Vital Signs Temp 97.1 F L 02/15/17 07:29 Pulse 89 02/15/17 08:00 Resp 26 02/15/17 08:22 BP 91/46 02/15/17 08:22 Pulse Ox 99 02/15/17 08:22 Ventilator Settings Ventilator Settings: Ventilator Settings, Last 8 Hours Ventilator Mode VC+ Ventilator Mode VC+ Ventilator Mode VC+ Ventilator Mode VC+ Ventilator Mode VC+ Ventilator Mode VC+ Ventilator Mode VC+ Ventilator Mode VC+ Ventilator Mode VC+ Ventilator Mode VC+ Ventilator Mode VC+ Ventilator Mode VC+ Ventilator Mode VC+ Ventilator Tidal Volume 450 Setting Ventilator Tidal Volume 450 Setting Ventilator Tidal Volume 450 Setting Ventilator Tidal Volume 450 Setting Ventilator Tidal Volume 450 Setting Ventilator Tidal Volume 450 Setting Ventilator Tidal Volume 450 Setting Ventilator Tidal Volume 450 Setting Ventilator Tidal Volume 450 Setting Ventilator Tidal Volume 450 Setting Ventilator Tidal Volume 450 Setting Ventilator Tidal Volume 450 Setting Ventilator Tidal Volume 450 Setting Ventilator Respiratory Rate 14 Setting Ventilator Respiratory Rate 14 Setting Ventilator Respiratory Rate 14 Setting Ventilator Respiratory Rate 14 Setting Ventilator Respiratory Rate 14 Setting Ventilator Respiratory Rate 14 Setting Ventilator Respiratory Rate 14 Setting Ventilator Respiratory Rate 14 Setting Ventilator Respiratory Rate 14 Setting Ventilator Respiratory Rate 14 Setting Ventilator Respiratory Rate 14 Setting Ventilator Respiratory Rate 14 Setting Ventilator Respiratory Rate 14 Setting Actual Respiratory Rate 27 Actual Respiratory Rate 24 Actual Respiratory Rate 24 Actual Respiratory Rate 23 Actual Respiratory Rate 24 Actual Respiratory Rate 26 Actual Respiratory Rate 26 Actual Respiratory Rate 23 Actual Respiratory Rate 23 Actual Respiratory Rate 22 Actual Respiratory Rate 21 Actual Respiratory Rate 28 Positive End Expiratory 5 Pressure Positive End Expiratory 5 Pressure Positive End Expiratory 5 Pressure Positive End Expiratory 5 Pressure Positive End Expiratory 5 Pressure Positive End Expiratory 5 Pressure Positive End Expiratory 5 Pressure Positive End Expiratory 5 Pressure Positive End Expiratory 5 Pressure Positive End Expiratory 5 Pressure Positive End Expiratory 5 Pressure Positive End Expiratory 5 Pressure Positive End Expiratory 5 Pressure Peak Inspiratory Airway 26 Pressure Peak Inspiratory Airway 26 Pressure Peak Inspiratory Airway 23 Pressure Peak Inspiratory Airway 25 Pressure Peak Inspiratory Airway 23 Pressure Peak Inspiratory Airway 24 Pressure Peak Inspiratory Airway 25 Pressure Peak Inspiratory Airway 22 Pressure Peak Inspiratory Airway 19 Pressure Peak Inspiratory Airway 20 Pressure Peak Inspiratory Airway 21 Pressure Peak Inspiratory Airway 21 Pressure Results - Laboratory Findings CBC and BMP: 02/15/17 03:30 02/15/17 05:40 ABG ABG pH 7.44 pH Units (7.32-7.45) 02/15/17 05:10 ABG pCO2 30 mmHg (35-45) L 02/15/17 05:10 ABG pO2 78 mmHg (85-104) L 02/15/17 05:10 ABG O2 Saturation 96 % (95-98) 02/15/17 05:10 PT/INR, D-dimer PT 12.4 Seconds (9.4-12.1) H 02/15/17 03:30 Abnormal lab findings: Abnormal lab results WBC 22.4 K/mcL (4.3-11.1) H 02/15/17 03:30 RBC 3.50 M/mcL (3.82-4.97) L 02/15/17 03:30 Hgb 10.1 g/dL (11.5-15.4) L 02/15/17 03:30 Hct 30.8 % (35.3-44.9) L 02/15/17 03:30 Neutrophils # 18.8 K/mcL (1.6-8.9) H 02/15/17 03:30 Monocytes # 1.8 K/mcL (0.0-1.3) H 02/15/17 03:30 PT 12.4 Seconds (9.4-12.1) H 02/15/17 03:30 ABG pCO2 30 mmHg (35-45) L 02/15/17 05:10 ABG pO2 78 mmHg (85-104) L 02/15/17 05:10 ABG Base Excess -3 mEq/L (-2 to 3) L 02/15/17 05:10 Chloride 111 mEq/L (98-109) H 02/15/17 05:40 BUN 78 mg/dL (7-20) H 02/15/17 05:40 Creatinine 3.07 mg/dL (0.57-1.11) H 02/15/17 05:40 Est GFR ( Amer) 20 (> 60) L 02/15/17 05:40 Est GFR (Non-Af Amer) 16 (> 60) L 02/15/17 05:40 Glucose 255 mg/dL (70-99) H 02/15/17 05:40 POC Glucose 142 (58-89) H 02/15/17 08:13 Calculated Osmolality 326 (280-300) H 02/15/17 05:40 Lactic Acid 5.2 mmol/L (0.5-2.2) H* 02/15/17 06:34 Calcium 7.6 mg/dL (8.6-10.8) L 02/15/17 05:40 Ionized Calcium 1.05 mmol/L (1.15-1.35) L 02/15/17 03:30 Phosphorus 2.0 mg/dL (2.3-4.7) L 02/15/17 03:30 Magnesium 1.3 mg/dL (1.6-2.6) L 02/15/17 03:30 Creatine Kinase 248 Units/L (29-168) H 02/14/17 12:57 Troponin I 0.94 ng/mL (0-0.03) H* 02/14/17 22:00 Serum Total Protein 4.6 g/dL (6.0-8.3) L 02/15/17 03:30 Albumin 1.5 g/dL (3.5-5.0) L D 02/15/17 03:30 Albumin/Globulin Ratio 0.5 (1.1-2.2) L 02/15/17 03:30 Beta-Hydroxybutyric Acd > 2.00 mmol/L (0.02-0.27) H 02/14/17 12:57 Urine Clarity Cloudy (Clear) A 02/14/17 11:32 Ur Specific [place] 1.028 (1.010-1.025) H 02/14/17 11:32 Urine Protein >=1000 mg/dL (Neg-Trace) H 02/14/17 11:32 Urine Glucose (UA) >=1000 mg/dL (Normal) H 02/14/17 11:32 Urine Ketones 15 mg/dL (Negative) H 02/14/17 11:32 Urine Blood Moderate (Negative) H 02/14/17 11:32 Urine Microscopic RBC 5-15 per hpf (0-3) H 02/14/17 11:32 Urine Microscopic WBC 15-30 per hpf (0-3) H 02/14/17 11:32 Ur Squamous Epith Cells Many per lpf (None-Few) H 02/14/17 11:32 Stool Occult Blood Positive (Negative) A 02/14/17 19:32 Enterobacteriac sp PCR DETECTED (Not Detect) A 02/14/17 12:50 E. cloacae complex PCR DETECTED (Not Detect) A 02/14/17 12:50 Enterococcus sp PCR DETECTED (Not Detect) A 02/14/17 12:50 E. coli (PCR) DETECTED (Not Detect) A 02/14/17 12:50 Staphylococcus sp PCR DETECTED (Not Detect) A 02/14/17 12:50 mecA-Methicil Res Gene DETECTED (Not Detect) A 02/14/17 12:50 - Clinical Findings Intake & Output: Intake & Output 02/14/17 02/15/17 02/15/17 23:59 07:59 15:59 Intake Total 2087.5 / 2087.5 1273.5 / 1273.5 7.7 / 7.7 Output Total 850 / 850 275 / 275 Balance 1237.5 / 1237.5 998.5 / 998.5 7.7 / 7.7 - Attending Attestation I examined this patient and my medical decision-making was reviewed with the Resident Physician. I agree with the documented findings, disposition and treatment plan as described except to the extent set forth below. We independently had [id number] contact with the patient I spent 40min of Critical Care time with this patient. It involved decision making of high complexity to assess, manipulate, and support vital organ system failure and/or to prevent further life threatening deterioration of the patient' s condition. The time involved in the performance of separately reportable procedures was not counted toward critical care time. Patient seen and examined at bedside Labs, radiology, chart personally reviewed. Management was reviewed during multidisciplinary critical care rounds. DISPLAY COORDINATOR: Remains encephalopathic Likey metabolic however no purposeful mvts. EEG today and Neuro consult Pulm: Respiratory failure on vent. Acceptable Oxygenation/Ventilation Cards: Vasodiliatory shock on Vasopressin for Afib RVR now Sinus. More hypotensive overnight. Lactate elevated trend. Albumin volume challenge today. NSTEMI Likely ECHO improved EF% FEN-GI:Start Enteral nutrition. GI consult. for possible bleeding. If no plan for EGD start Heparin Renal: LANETTE UOP low but acceptable. sCr downtrending. Monitor BID. ID: GN Bacteremia add double coverage for GN with Pip/Westley and Tobra f/u final cultuers Heme/Onc: DVT prophylaxis (mechanical) H/H stable. Endo: DKA/HONK physiology improving transition to SubQ today. Integ/MSK: Skin Care per routine ICU Nursing Protocol to prevent ulcers. Lines: All lines examined without evidence of infection : Dispo: Remain in ICU for Critical Illness. CODE: [id number]. I spoke with the patient's adult daughter and sister at the bedside. The adult daughter is the de facto healthcare power of title attorney as her other 2 adult children are mentally disabled she was but her is . She also has a couple of brothers per the sister who are not close to her. She has a mother living in [facility] who is ill and had recently undergone surgery. The adult daughter and sister both expressed their concern that she would not want to be "kept alive on machines" and they had initially requested that we stop our medical interventions. I explained to them that currently we are supporting her for critical illness but it is likely too early to completely prognosticate on her prognosis although it likely is extremely poor especially from a neurological standpoint. I said that it would be prudent to continue care for the next 24-48 hours so that we can have more time to prognosticate and to see how she responds to her medical interventions of which we have had some encouraging improvements. At in the conversation both the daughter and the sister were in agreement that we should continue her current level of care is situation were to deteriorate or she would suffer cardiac arrest she should not undergo CPR and CODE STATUS was changed to reflect this. The bedside ICU nurse was present for the entire conversationThe patient is unable or incompetent to participate in giving a history and/or making treatment decisions. The discussion was necessary for determining treatment decision. This discussion took place in the ICU The total meeting time was 20min.
[2017-02-15] MEDS ORDERED: Pantoprazole 40 MG VIAL IVPB SCH (09:00)
[2017-02-15] MEDS ORDERED: WATER IVPB ONE (10:00)
[2017-02-15] MEDS ORDERED: TOBRAMYCIN SULF IVPB ONE (10:00)
[2017-02-15] MEDS ORDERED: D5 IVPB ONE (10:00)
[2017-02-15] MEDS ORDERED: *HR* Rocuronium Bromide 100 MG/10 ML VIAL IVC ONE (10:54)
[2017-02-15] MEDS ORDERED: *HR* Etomidate 20 MG/10 ML AMPUL IVP ONE (10:54)
[2017-02-15] MEDS: Phenylephrine 50 MG in D5% in Water 250 ML IVC SCH (11:05)
[2017-02-15] MEDS: Insulin LISPRO 300 UNITS/3 ML VIAL SQ SCH ×4 (12:01→23:02)
[2017-02-15] MEDS: *HR* Heparin 5,000 UNIT/ML VIAL SQ SCH ×2 (12:05→17:31)
--- NOTE | 2017-02-15 12:17 | Neurology - Consult Note ---
Date of Encounter: 02/15/17 Time of Encounter: 12:14 Assessment and Plan (1) Unresponsiveness Current Visit: Yes Status: Acute Patient with multiple organ derangement including hyperglycemia, acute respiratory failure, acute renal failure who has remained responsive since last night admission. Patient has not been on any type of sedatives since admission last midnight and not sure how long she had been in unresponsive before admission. Neurological examination showed very sluggish brain stem reflexes including sluggish oculocephalic refles and blinking is slow as well. no spontaneous limb movements seen to painful stimuli. Routine EEG showed severe diffuse slowing. Overall speaking in my opinion the patient's neurological prognosis is very poor. CT of head showed no acute intracranial abnormality and the cause of her unresponsiveness is likely severe diffuse encephalopathy. Primary SCOOPER pathology unlikely but microembolic can not totally excluded without MRI of brain. Please continue medical and supportivE care. History of Present Illness Chief complaint: unresponsiveness HPI: Ms. Mckeon is a 47 year old female wit PMH significant for CAD, CHF, DM, CVA, PVD, HTN, COPD, gangrene of toe, chronic back pain who was found to be unresponsive and admitted last night. Per medical records, per EMS the patient was noted to be ill since the last few days. Found to be unresponsive and was intubated in ER for airway protection. Neurology was consulted today for persistently reduced responsiveness. She was given one dose of muscular relaxant last night and fentanyl this morning but no sedatives after that. Patient has remained unresponsive. Patient was found to be hyperglycemic, in ARF and ARF. initial CT of head showed no acute intracranial abnormality. Has had history of white matter signal change on MRI of brain 2014, could not related a lacunar infarct, pattern not consistent with demyelinating disorder. EEG completed this morning, showing severe diffuse background slowing, using sensitivity of 2microm/unit. No electrographic seizures, no EDs and no focal slowing noted. background activity is minimally reactive. No sleep structure seen. result is consistent with severe encephalopathy Past Med Surg Social Fam HX - Past Medical History Medical history: cardiomyopathy, cirrhosis, CHF, COPD, coronary artery disease, CVA, DVT, diabetes, peripheral artery disease, renal disease, TIA, other Psychiatric history: anxiety, depression - Past Surgical History Surgical History: appendectomy, cholecystectomy, hysterectomy, orthopedic, other - Social History Smoking Status: Current every day smoker Smokeless Tobacco Status: No Alcohol use: none Drug use: none - Family History Father Adopted: No Family Member Ethnicity: Non- Living Status: Hx Family Cardiac Disorders: Yes Hx Family Respiratory Disorders: Yes Hx Family Cancer: Yes Hx Family Endocrine Disorder: Yes Hx Family Neurologic Disorders: No Medications and Allergies Atorvastatin [Lipitor] 40 mg PO HS 06/18/16 [History] Clopidogrel [Plavix] 75 mg PO DAILY 06/18/16 [History] Fenofibrate [Lofibra] 160 mg PO DAILY 06/18/16 [History] Gabapentin [Neurontin] 400 mg PO TID 06/18/16 [History] Isosorbide MONOnitrate (24 HR) [Imdur] 60 mg PO DAILY 06/18/16 [History] Metoprolol XL (24 HR) Succ [Toprol Xl] 50 mg PO DAILY 06/18/16 [History] Potassium Chloride [Klor-Con Sprinkle] 10 meq PO BID 06/18/16 [History] Budesonide/Formoterol 160/4.5 [Symbicort 160/4.5] 2 puff IH BID 08/20/16 [ History] Nitroglycerin [Nitrostat] 0.4 mg SL Q5M PRN 08/20/16 [History] Albuterol Sulfate [Albuterol Inhaler] 2 puff IH Q4HR PRN 11/22/16 [History] Lisinopril 2.5 mg PO DAILY 11/22/16 [History] Ipratropium/Albuterol Neb [Duoneb] 3 ml IH QIDR inh 11/23/16 [Rx] Ondansetron ODT [Zofran ODT] 4 mg SL Q8HR PRN #20 tab.rapdis 11/23/16 [Rx] Insulin DETEMIR [Levemir] 20 unit SQ HS 12/20/16 [History] Insulin DETEMIR [Levemir] 40 unit SQ QAM 12/20/16 [History] Furosemide [Lasix] 40 mg PO DAILY 02/14/17 [History] Rivaroxaban [Xarelto] 15 mg PO BID 02/14/17 [History] 3 Allergy/AdvReac Type Severity Reaction Status Date / Time Onion Allergy Intermediate Swelling Verified 12/20/16 16:11 of Lip/Tongue/Throat ciprofloxacin [From Cipro] Allergy Hives Verified 12/20/16 16:11 codeine Allergy Hives Verified 12/20/16 16:11 insulin glargine Allergy Hives Verified 12/20/16 16:11 [From Lantus] aspirin AdvReac Nausea Verified 12/20/16 16:11 All Systems: A 10-system review of systems was performed and is negative for pertinent findings except as documented above in the HPI. Physical Examination - Vital Signs Vital Signs: Initial Vital Signs Temp Pulse Resp BP Pulse Ox 0 F L 88 18 119/58 97 02/14/17 11:21 02/14/17 11:21 02/14/17 11:21 02/14/17 11:21 02/14/17 11:21 - Constitutional General appearance: chronically ill - Neurologic Sensorimotor examination: other (Unable to assess due to unresponsiveness) Detailed motor examination: other (No spontaneous movements seen) Detailed sensory examination: other (Unable to assess due to unresponsiveness) Posture: other (NOne) Reflex and gait examination: other (Absent DTRs) Reflexes: Biceps: 0, Triceps: 0, Brachioradialis: 0, Patella: 0, Achilles: 0 Mental Status Examination: coma (Patient has no responsive to painful stimule. Is currently on hemodialysis. ) Cranial nerve examination: PERRL (2mm in sizes bilaterally. minimally reactive. Pupils are in midline and with very sluggish eye closing. Sluggish oculocephalic reflex), corneal reflexes brisk symmetrically (Very sluggish corneal reflex), no facial asymmetry is present, gag reflex intact Results - Laboratory Findings CBC and BMP: 02/15/17 03:30 02/15/17 05:40 Abnormal lab findings: Abnormal lab results WBC 22.4 K/mcL (4.3-11.1) H 02/15/17 03:30 RBC 3.50 M/mcL (3.82-4.97) L 02/15/17 03:30 Hgb 10.1 g/dL (11.5-15.4) L 02/15/17 03:30 Hct 30.8 % (35.3-44.9) L 02/15/17 03:30 Neutrophils # 18.8 K/mcL (1.6-8.9) H 02/15/17 03:30 Monocytes # 1.8 K/mcL (0.0-1.3) H 02/15/17 03:30 PT 12.4 Seconds (9.4-12.1) H 02/15/17 03:30 ABG pCO2 30 mmHg (35-45) L 02/15/17 05:10 ABG pO2 78 mmHg (85-104) L 02/15/17 05:10 ABG Base Excess -3 mEq/L (-2 to 3) L 02/15/17 05:10 Chloride 111 mEq/L (98-109) H 02/15/17 05:40 BUN 78 mg/dL (7-20) H 02/15/17 05:40 Creatinine 3.07 mg/dL (0.57-1.11) H 02/15/17 05:40 Est GFR ( Amer) 20 (> 60) L 02/15/17 05:40 Est GFR (Non-Af Amer) 16 (> 60) L 02/15/17 05:40 Glucose 255 mg/dL (70-99) H 02/15/17 05:40 POC Glucose 189 (58-89) H 02/15/17 11:52 Calculated Osmolality 326 (280-300) H 02/15/17 05:40 Calcium 7.6 mg/dL (8.6-10.8) L 02/15/17 05:40 Ionized Calcium 1.05 mmol/L (1.15-1.35) L 02/15/17 03:30 Phosphorus 2.0 mg/dL (2.3-4.7) L 02/15/17 03:30 Magnesium 1.3 mg/dL (1.6-2.6) L 02/15/17 03:30 Creatine Kinase 248 Units/L (29-168) H 02/14/17 12:57 Troponin I 0.94 ng/mL (0-0.03) H* 02/14/17 22:00 Serum Total Protein 4.6 g/dL (6.0-8.3) L 02/15/17 03:30 Albumin 1.5 g/dL (3.5-5.0) L D 02/15/17 03:30 Albumin/Globulin Ratio 0.5 (1.1-2.2) L 02/15/17 03:30 Beta-Hydroxybutyric Acd > 2.00 mmol/L (0.02-0.27) H 02/14/17 12:57 Urine Clarity Cloudy (Clear) A 02/14/17 11:32 Ur Specific [place] 1.028 (1.010-1.025) H 02/14/17 11:32 Urine Protein >=1000 mg/dL (Neg-Trace) H 02/14/17 11:32 Urine Glucose (UA) >=1000 mg/dL (Normal) H 02/14/17 11:32 Urine Ketones 15 mg/dL (Negative) H 02/14/17 11:32 Urine Blood Moderate (Negative) H 02/14/17 11:32 Urine Microscopic RBC 5-15 per hpf (0-3) H 02/14/17 11:32 Urine Microscopic WBC 15-30 per hpf (0-3) H 02/14/17 11:32 Ur Squamous Epith Cells Many per lpf (None-Few) H 02/14/17 11:32 Stool Occult Blood Positive (Negative) A 02/14/17 19:32 Enterobacteriac sp PCR DETECTED (Not Detect) A 02/14/17 12:50 E. cloacae complex PCR DETECTED (Not Detect) A 02/14/17 12:50 Enterococcus sp PCR DETECTED (Not Detect) A 02/14/17 12:50 E. coli (PCR) DETECTED (Not Detect) A 02/14/17 12:50 Staphylococcus sp PCR DETECTED (Not Detect) A 02/14/17 12:50 mecA-Methicil Res Gene DETECTED (Not Detect) A 02/14/17 12:50 Consult Discharge Plan - Plan Referrals: NONE,PCP [Primary Care Provider] -
--- NOTE | 2017-02-15 12:50 | EEG/EMG/Oth Biometrics Report ---
EEG Procedure Report Date of procedure: 02/15/17 EEG Procedure: Routine EEG Procedure Note: This EEG was acquired with the standard international 10-20 electrode placement system plus EKG recording. The background EEG activity was replaced by rather severe diffuse low amplitude slowing throughout the recording with minimal reactivity. No clear sleep structure was identified. There is no electrographic seizures identified during this tracing. No epileptiform discharges or focal slowing noted during this recording. Photic stimulation produced no additional abnormalities. Hyperventilation procedure was not performed. EKG tracing showed sinus tachycardia. Impression: This is severely abnormal EEG due to presence of severe background slowing with minimum reactivity. Clinical Correlation: This EEG is consistent with severe cerebral dysfunction that can be seen in patients with medicla encephalopathy, metabolic/toxic, electrolyte derangement, or other causes. Clinical correlation suggested.
--- NOTE | 2017-02-15 13:15 | Cardiology Consult Note ---
<Maria Luisa Curtis - Last Filed: 02/15/17 16:57> Date of Encounter: 02/15/17 Time of Encounter: 10:45 Assessment and Plan (1) Elevated troponin Current Visit: Yes Status: Acute Presented unresponsive with a pmh of CHF, PVD, DM2, and CAD with stent (03/2014 ) found to have elevated troponin. Troponin= 0.94 ( 1.4, 1.78). Trending down. Blood culture positive for multiple bacteria. Patient currently intubated. Echo today showed EF 50%, mild concentric left ventricular hypertrophy, segmental LVSD, normal RV. No evidence of pulmonary HTN. Mild inferior and basal inferior lateral martinez were hypokinetic, basal inferior wall akinetic, all other wall segments normal. LVEF improved compared to prior study and unchanged wall motion abnormalities from previous study in 11/2016. Plan: Elevated troponins stabilized but were significant. Echo shows improvement in EF from prior study and no new wall motion abnormalities. Recommend work up for GI bleeding. Will consider cath prior to discharge if clinical status improves and if potential GI bleeding has been controlled. Discussion w patient/family: The assessment and plan as outlined above was discussed with the patient and/or family members who expressed understanding and agreement. All questions were answered. Thank you for involving us in the care of your patient. Please call with any questions. History of Present Illness Consult date: 02/14/17 Requesting physician: Tree Stubbs Consult reason: NSTEMI, Hx MIs, CAD with possible GI bleed Chief complaint: unresponsive History of present illness: Ms. Mckeon is a 47 year old female pmh of DM2, CAD with stent (03/2014), PVD with stents in legs, cirrhosis, repeat hospital admissions this year for systolic CHF and presented to the ED unresponsive. Patient was diagnosed with encephalopathy, DKA, and respiratory failure. Cardiology was consulted for elevated troponins in the setting of possible GI bleed as hemoccult was positive. Patient's hemoglobin has dropped from 12.1 to 10.1 since admission but patient was also given multiple boluses of fluid over this time period. Troponin has dropped from 1.78 to 0.94. Patient is currently intubated and is not on sedation and is not responding to painful stimuli. Echo 11/2016 EF 45% mild LV systolic dysfunction with regional variations. TTE 08/09/2016 showed an EF of 35-40%. There was a large pleural effusion. This was a limited study. TTE 06/18/2016EF 40% with global systolic reduction and variations and wall motion abnormality as seen on prior echocardiogram. Mild to moderate mitral regurgitation, mild tricuspid regurgitation, mild pulmonic regurgitation. There is no pulmonary hypertension. Trivial pericardial effusion. Last LHC in 2013. LHC revealed severe two vessel coronary artery disease. EF 40% . Patient had successful PTCA/Drug-Eluting Stent placement in the proximal and distal Circ ISR. Long occluded RCA -instent - from ostium to PDA with left to right collaterals 20% stenosis in the Proximal LAD. The lesion has no thrombus present. Past Med Surg Social Fam HX - Past Medical History Medical history: cardiomyopathy, cirrhosis, CHF, COPD, coronary artery disease, CVA, DVT, diabetes, peripheral artery disease, renal disease, TIA, other Psychiatric history: anxiety, depression - Past Surgical History Surgical History: appendectomy, cholecystectomy, hysterectomy, orthopedic, other - Social History Smoking Status: Current every day smoker Smokeless Tobacco Status: No Alcohol use: none Drug use: none - Family History Father Adopted: No Family Member Ethnicity: Non- Living Status: Hx Family Cardiac Disorders: Yes Hx Family Respiratory Disorders: Yes Hx Family Cancer: Yes Hx Family Endocrine Disorder: Yes Hx Family Neurologic Disorders: No Medications and Allergies Atorvastatin [Lipitor] 40 mg PO HS 06/18/16 [History] Clopidogrel [Plavix] 75 mg PO DAILY 06/18/16 [History] Fenofibrate [Lofibra] 160 mg PO DAILY 06/18/16 [History] Gabapentin [Neurontin] 400 mg PO TID 06/18/16 [History] Isosorbide MONOnitrate (24 HR) [Imdur] 60 mg PO DAILY 06/18/16 [History] Metoprolol XL (24 HR) Succ [Toprol Xl] 50 mg PO DAILY 06/18/16 [History] Potassium Chloride [Klor-Con Sprinkle] 10 meq PO BID 06/18/16 [History] Budesonide/Formoterol 160/4.5 [Symbicort 160/4.5] 2 puff IH BID 08/20/16 [ History] Nitroglycerin [Nitrostat] 0.4 mg SL Q5M PRN 08/20/16 [History] Albuterol Sulfate [Albuterol Inhaler] 2 puff IH Q4HR PRN 11/22/16 [History] Lisinopril 2.5 mg PO DAILY 11/22/16 [History] Ipratropium/Albuterol Neb [Duoneb] 3 ml IH QIDR inh 11/23/16 [Rx] Ondansetron ODT [Zofran ODT] 4 mg SL Q8HR PRN #20 tab.rapdis 11/23/16 [Rx] Insulin DETEMIR [Levemir] 20 unit SQ HS 12/20/16 [History] Insulin DETEMIR [Levemir] 40 unit SQ QAM 12/20/16 [History] Furosemide [Lasix] 40 mg PO DAILY 02/14/17 [History] Rivaroxaban [Xarelto] 15 mg PO BID 02/14/17 [History] 3 Allergy/AdvReac Type Severity Reaction Status Date / Time Onion Allergy Intermediate Swelling Verified 12/20/16 16:11 of Lip/Tongue/Throat ciprofloxacin [From Cipro] Allergy Hives Verified 12/20/16 16:11 codeine Allergy Hives Verified 12/20/16 16:11 insulin glargine Allergy Hives Verified 12/20/16 16:11 [From Lantus] aspirin AdvReac Nausea Verified 12/20/16 16:11 All Systems Review: A 10-system review of systems was performed and is negative for pertinent findings except as documented above in the HPI. Physical Examination Vital Signs, Last 4 Hours Pulse Resp BP Pulse Ox 02/15/17 11:44 24 102/45 92 02/15/17 11:00 87 20 123/50 96 02/15/17 10:00 88 16 126/52 97 02/15/17 09:26 21 90/50 100 General: Conversant, Other (intubated, not responsive to painful stimuli ) Cardiac: Reg Rate and Rhythm, Normal S1 and S2, No Murmur Lungs: No Wheeze, Rales, Rhonchi, Other (mechanical ventilation ) Neuro: Other (currently not responding to painful stimuli ) Abdomen: Soft, Non-Tender Skin: Other (skin is pale, with increase capillary refill ~4 seconds in feet) Extremities: Other (+ 2 pitting edema in hands and feet, unable to palpate pulses in lower extremitites most likely 2/2 edema, radial pulses 2/4) Results 02/15/17 15:55 02/15/17 15:55 Lab Results 02/14/17 02/14/17 02/14/17 16:11 16:11 16:11 WBC 19.9 H Hgb 11.0 L Hct 34.5 L Plt Count 311 INR Sodium 139 Potassium 3.2 L Chloride 99 Carbon Dioxide 17 L BUN 85 H Creatinine 3.37 H Glucose 1040 H* Calcium 7.9 L Magnesium Total Bilirubin AST ALT Alkaline Phosphatase Troponin I 1.40 H* Lipase < 10 02/14/17 02/14/17 02/14/17 18:07 20:31 22:00 WBC Hgb Hct Plt Count INR Sodium 138 139 Potassium 3.9 3.5 Chloride 99 104 Carbon Dioxide 15 L 17 L BUN 83 H 82 H Creatinine 3.27 H 3.33 H Glucose 1040 H* 955 H* Calcium 8.1 L 7.5 L Magnesium Total Bilirubin AST ALT Alkaline Phosphatase Troponin I 0.94 H* Lipase 02/14/17 02/14/17 02/14/17 22:00 22:00 23:56 WBC Hgb 10.6 L Hct 32.4 L Plt Count INR Sodium 140 141 Potassium 3.4 L 3.8 Chloride 105 106 Carbon Dioxide 18 L 20 BUN 82 H 82 H Creatinine 3.17 H 3.29 H Glucose 811 H* 772 H* Calcium 7.7 L 7.6 L Magnesium Total Bilirubin AST ALT Alkaline Phosphatase Troponin I Lipase 02/15/17 02/15/17 02/15/17 02:00 02:00 03:30 WBC 22.4 H Hgb 10.1 L 10.1 L Hct 30.2 L 30.8 L Plt Count 327 INR Sodium 142 Potassium 3.5 Chloride 109 Carbon Dioxide 22 BUN 81 H Creatinine 3.18 H Glucose 559 H* Calcium 7.4 L Magnesium Total Bilirubin AST ALT Alkaline Phosphatase Troponin I Lipase 02/15/17 02/15/17 02/15/17 03:30 03:30 03:30 WBC Hgb Hct Plt Count INR 1.1 Sodium 142 Potassium 4.0 Chloride 109 Carbon Dioxide 22 BUN 80 H Creatinine 3.13 H Glucose 419 H Calcium 7.5 L Magnesium 1.3 L Total Bilirubin 0.2 AST 24 ALT 9 Alkaline Phosphatase 69 Troponin I Lipase 02/15/17 05:40 WBC Hgb Hct Plt Count INR Sodium 142 Potassium 4.2 Chloride 111 H Carbon Dioxide 21 BUN 78 H Creatinine 3.07 H Glucose 255 H Calcium 7.6 L Magnesium Total Bilirubin AST ALT Alkaline Phosphatase Troponin I Lipase - EKG Interpretation EKG results cardiology: personally reviewed (Sinus rhythm with left atrial enlargement that is unchanged from previous EKG 12/21/16) Consult Discharge Plan - Plan Referrals: NONE,PCP [Primary Care Provider] - <Shavon Howe - Last Filed: 02/15/17 19:35> Date of Encounter: 02/15/17 - Attending Attestation I examined this patient and my medical decision-making was reviewed with the Resident Physician. I agree with the documented findings, disposition and treatment plan. Ms. Mckeon presented unresponsive and was intubated for airway protection. She was found to be in DKA with ARF on CKD. Troponin elevated at 1.78 now downtrending. Echo demonstrated EF 50% which appears somewhat improved when compared to prior exams. No new acute ECG findings. Primary team is concerned for bleeding. Recommend against proceeding with C at this time. She has aspirin intolerance - can consider addition of plavix if ok with ICU team and after GI workup is complete. Can also consider an ischemic evaluation prior to discharge if clinical status improves and after GI evaluation. Will sign off. Please call with questions. Assessment and Plan Discussion w patient/family: The assessment and plan as outlined above was discussed with the patient and/or family members who expressed understanding and agreement. All questions were answered. Thank you for involving us in the care of your patient. Please call with any questions. History of Present Illness History of present illness: Ms. Mckeon is a 47 year old female All Systems Review: A 10-system review of systems was performed and is negative for pertinent findings except as documented above in the HPI. Physical Examination Vital Signs, Last 4 Hours Pulse Resp BP Pulse Ox 02/15/17 18:00 79 17 124/55 97 02/15/17 17:10 14 143/63 97 02/15/17 17:00 80 14 143/63 97 02/15/17 16:00 74 16 151/67 99 02/15/17 15:38 17 157/75 99 Results 02/15/17 15:55 02/15/17 15:55 Lab Results 02/14/17 02/14/17 02/14/17 18:07 20:31 22:00 WBC Hgb Hct Plt Count INR Sodium 138 139 Potassium 3.9 3.5 Chloride 99 104 Carbon Dioxide 15 L 17 L BUN 83 H 82 H Creatinine 3.27 H 3.33 H Glucose 1040 H* 955 H* Calcium 8.1 L 7.5 L Magnesium Total Bilirubin AST ALT Alkaline Phosphatase Troponin I 0.94 H* 02/14/17 02/14/17 02/14/17 22:00 22:00 23:56 WBC Hgb 10.6 L Hct 32.4 L Plt Count INR Sodium 140 141 Potassium 3.4 L 3.8 Chloride 105 106 Carbon Dioxide 18 L 20 BUN 82 H 82 H Creatinine 3.17 H 3.29 H Glucose 811 H* 772 H* Calcium 7.7 L 7.6 L Magnesium Total Bilirubin AST ALT Alkaline Phosphatase Troponin I 02/15/17 02/15/17 02/15/17 02:00 02:00 03:30 WBC 22.4 H Hgb 10.1 L 10.1 L Hct 30.2 L 30.8 L Plt Count 327 INR Sodium 142 Potassium 3.5 Chloride 109 Carbon Dioxide 22 BUN 81 H Creatinine 3.18 H Glucose 559 H* Calcium 7.4 L Magnesium Total Bilirubin AST ALT Alkaline Phosphatase Troponin I 02/15/17 02/15/17 02/15/17 03:30 03:30 03:30 WBC Hgb Hct Plt Count INR 1.1 Sodium 142 Potassium 4.0 Chloride 109 Carbon Dioxide 22 BUN 80 H Creatinine 3.13 H Glucose 419 H Calcium 7.5 L Magnesium 1.3 L Total Bilirubin 0.2 AST 24 ALT 9 Alkaline Phosphatase 69 Troponin I 02/15/17 02/15/17 02/15/17 05:40 15:55 15:55 WBC Hgb 8.8 L Hct 26.7 L Plt Count INR Sodium 142 Potassium 4.2 4.7 H Chloride 111 H Carbon Dioxide 21 BUN 78 H Creatinine 3.07 H Glucose 255 H Calcium 7.6 L Magnesium 2.5 Total Bilirubin AST ALT Alkaline Phosphatase Troponin I
--- NOTE | 2017-02-15 14:18 | Internal Medicine Consult Note ---
Date of Encounter: 02/15/17 Time of Encounter: 11:25 - Assessment and Plan (1) Melena Current Visit: Yes Status: Acute Assessment and plan: It is difficult to say if she's had GI bleeding. Currently though she is not bleeding at this time. Given her current mental state and poor prognosis, she will not benefit from endoscopy. Certainly would recommend continuing PPI therapy. I would also recommend DVT prophylaxis, but I would not recommend overt anticoagulation given the elevated troponin. 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 Qualifiers: Anemia type: other cause Qualified Code(s): D63.8 - Anemia in other chronic diseases classified elsewhere (4) Acute encephalopathy Current Visit: No Status: Acute (5) Hx of deep venous thrombosis Current Visit: No Status: Acute (6) Hyperosmolar non-ketotic state in patient with type 2 diabetes mellitus Current Visit: No Status: Acute (7) Severe sepsis Current Visit: Yes Status: Acute Internal Medicine - CN: HPI - Data of Consult Patient: new to practice Consult date: 02/15/17 Requesting Physician: Kalia Art MD - Consult Narrative Reason for consult: Hemocult positive Stool./Possible melena History of present illness: Ms. Mckeon is a 47 year old female currently in the ICU. I was asked to see her from a endoscopy consultation, given the presentation of darker bowel movements with Hemoccult positive stool. She was admitted to the ICU yesterday, after being found down for 2 days with hyperglycemia. She is known to be noncompliant. In fact the room today, was talking to both the daughter and the niece she has long-standing history of not listening to providers, not taking her insulin and has not been compliant about taking other medications. She is not good about seeking help when she needs to. The ICU providers are asking that I see her, specifically if she would warrant any sort of endoscopic intervention given the above findings. Currently she is on the ventilator, not sedated, unresponsive. She does have spontaneous respirations, but that is the only neurologic activity currently being seen. She is also being treated for sepsis, on 2 pressors, with multiple antibiotics. Her hemoglobins of instable, and we have seen no melena. Per the daughter, she has long-standing history of intermittent reflux, at times does take medication. She was told once she had our hernia, no history of bleeding in the past, no history of ulcer disease. Past Med Surg Social Fam HX - Past Medical History Medical history: cardiomyopathy, cirrhosis, CHF, COPD, coronary artery disease, CVA, DVT, diabetes, peripheral artery disease, renal disease, TIA, other Psychiatric history: anxiety, depression - Past Surgical History Surgical History: appendectomy, cholecystectomy, hysterectomy, orthopedic, other - Social History Smoking Status: Current every day smoker Smokeless Tobacco Status: No Alcohol use: none Drug use: none - Family History Father Adopted: No Family Member Ethnicity: Non- Living Status: Hx Family Cardiac Disorders: Yes Hx Family Respiratory Disorders: Yes Hx Family Cancer: Yes Hx Family Endocrine Disorder: Yes Hx Family Neurologic Disorders: No ROS unobtainable: due to endotracheal tube, due to mental status Internal Medicine - CN: Meds Atorvastatin [Lipitor] 40 mg PO HS 06/18/16 [History] Clopidogrel [Plavix] 75 mg PO DAILY 06/18/16 [History] Fenofibrate [Lofibra] 160 mg PO DAILY 06/18/16 [History] Gabapentin [Neurontin] 400 mg PO TID 06/18/16 [History] Isosorbide MONOnitrate (24 HR) [Imdur] 60 mg PO DAILY 06/18/16 [History] Metoprolol XL (24 HR) Succ [Toprol Xl] 50 mg PO DAILY 06/18/16 [History] Potassium Chloride [Klor-Con Sprinkle] 10 meq PO BID 06/18/16 [History] Budesonide/Formoterol 160/4.5 [Symbicort 160/4.5] 2 puff IH BID 08/20/16 [ History] Nitroglycerin [Nitrostat] 0.4 mg SL Q5M PRN 08/20/16 [History] Albuterol Sulfate [Albuterol Inhaler] 2 puff IH Q4HR PRN 11/22/16 [History] Lisinopril 2.5 mg PO DAILY 11/22/16 [History] Ipratropium/Albuterol Neb [Duoneb] 3 ml IH QIDR inh 11/23/16 [Rx] Ondansetron ODT [Zofran ODT] 4 mg SL Q8HR PRN #20 tab.rapdis 11/23/16 [Rx] Insulin DETEMIR [Levemir] 20 unit SQ HS 12/20/16 [History] Insulin DETEMIR [Levemir] 40 unit SQ QAM 12/20/16 [History] Furosemide [Lasix] 40 mg PO DAILY 02/14/17 [History] Rivaroxaban [Xarelto] 15 mg PO BID 02/14/17 [History] 3 Allergy/AdvReac Type Severity Reaction Status Date / Time Onion Allergy Intermediate Swelling Verified 12/20/16 16:11 of Lip/Tongue/Throat ciprofloxacin [From Cipro] Allergy Hives Verified 12/20/16 16:11 codeine Allergy Hives Verified 12/20/16 16:11 insulin glargine Allergy Hives Verified 12/20/16 16:11 [From Lantus] aspirin AdvReac Nausea Verified 12/20/16 16:11 Internal Medicine - CN: Exam - Constitutional Vitals: Temp Pulse Resp BP Pulse Ox 97.3 F L 84 18 123/53 98 02/15/17 12:00 02/15/17 13:00 02/15/17 13:23 02/15/17 13:23 02/15/17 13:23 - Head Head exam: Present: atraumatic - Eye Eye exam: Present: conjuntiva pink, sclera anicteric Pupils: Present: fixed - Neck Neck exam general surgery: Present: supple, trachea midline - Respiratory Additional comments: Mild rhonchus changes in the bases. Minimal tachypnea - Cardiovascular Cardiovascular exam IM: Present: RRR, +S1, +S2 - GI/Abdominal GI/Abdominal exam IM: Present: normal bowel sounds, soft, no peritoneal signs. Absent: mass, rebound, splenomegaly - Expanded GI/Abdominal Exam GI/Abdominal exam: Absent: ascites - Rectal Rectal exam: Present: deferred Internal Medicine - CN: Reslt - Labs CBC & Chem 7: 02/15/17 03:30 02/15/17 05:40 Labs: Short CBC 02/14/17 02/14/17 02/15/17 Range/Units 16:11 22:00 02:00 WBC 19.9 H (4.3-11.1) K/mcL Hgb 11.0 L 10.6 L 10.1 L (11.5-15.4) g/dL Hct 34.5 L 32.4 L 30.2 L (35.3-44.9) % Plt Count 311 (140-400) K/mcL Neutrophils # 16.5 H (1.6-8.9) K/mcL 02/15/17 Range/Units 03:30 WBC 22.4 H (4.3-11.1) K/mcL Hgb 10.1 L (11.5-15.4) g/dL Hct 30.8 L (35.3-44.9) % Plt Count 327 (140-400) K/mcL Neutrophils # 18.8 H (1.6-8.9) K/mcL BMP 02/14/17 02/14/17 02/14/17 16:11 18:07 20:31 Sodium 139 138 139 Potassium 3.2 L 3.9 3.5 Chloride 99 99 104 Carbon Dioxide 17 L 15 L 17 L BUN 85 H 83 H 82 H Creatinine 3.37 H 3.27 H 3.33 H Glucose 1040 H* 1040 H* 955 H* Calcium 7.9 L 8.1 L 7.5 L 02/14/17 02/14/17 02/15/17 22:00 23:56 02:00 Sodium 140 141 142 Potassium 3.4 L 3.8 3.5 Chloride 105 106 109 Carbon Dioxide 18 L 20 22 BUN 82 H 82 H 81 H Creatinine 3.17 H 3.29 H 3.18 H Glucose 811 H* 772 H* 559 H* Calcium 7.7 L 7.6 L 7.4 L 02/15/17 02/15/17 03:30 05:40 Sodium 142 142 Potassium 4.0 4.2 Chloride 109 111 H Carbon Dioxide 22 21 BUN 80 H 78 H Creatinine 3.13 H 3.07 H Glucose 419 H 255 H Calcium 7.5 L 7.6 L Cardiac Enzymes 02/14/17 02/14/17 Range/Units 16:11 22:00 Troponin I 1.40 H* 0.94 H* (0-0.03) ng/mL Liver Function 02/15/17 Range/Units 03:30 Total Bilirubin 0.2 (0.2-1.2) mg/dL Direct Bilirubin 0.2 (0.0-0.5) mg/dL AST 24 (5-34) Units/L ALT 9 (0-55) Units/L Alkaline Phosphatase 69 (38-126) Units/L Albumin 1.5 L D (3.5-5.0) g/dL - ABG Interpretation ABG results: ABG ABG pH 7.44 pH Units (7.32-7.45) 02/15/17 05:10 ABG pCO2 30 mmHg (35-45) L 02/15/17 05:10 ABG pO2 78 mmHg (85-104) L 02/15/17 05:10 ABG O2 Saturation 96 % (95-98) 02/15/17 05:10 PT/INR, D-dimer PT 12.4 Seconds (9.4-12.1) H 02/15/17 03:30 - Impressions Impressions Echocardiogram 02/14/17 15:35 Impressions: LVEF 50%. Normal LV chamber size. Mild concentric left ventricular hypertrophy. Segmental left ventricular systolic dysfunction. Normal right ventricular structure and function. Indeterminate diastolic function. No evidence of pulmonary hypertension. Overall, LVEF has improved compared to prior reports. Left Ventricular Wall Motion: Rest Echo Findings The mid inferior and basal inferior lateral martinez were hypokinetic. The basal inferior wall was akinetic. All other wall segments showed normal motion. Findings: Study Quality * Technically adequate exam. ECG Findings * Normal sinus rhythm. Left Ventricle * LVEF 50%. * Normal LV chamber size. * Mild concentric left ventricular hypertrophy. * Segmental left ventricular systolic dysfunction. * Indeterminate diastolic function. Right Ventricle * Normal right ventricular structure and function. Left Atrium * Normal left atrial size. Right Atrium * Normal right atrial size. Mitral Valve * Normal mitral valve structure and function. * No mitral stenosis. * Trace mitral regurgitation. Aortic Valve * Trileaflet aortic valve with normal function. * No aortic regurgitation. * No aortic stenosis. Tricuspid Valve * Normal tricuspid valve structure and function. * Trace tricuspid regurgitation. * No evidence of pulmonary hypertension. Pulmonic Valve * Normal pulmonic valve structure and function. * Trace pulmonic regurgitation. Aorta * Normally sized aortic root. Pericardium * The pericardium appears normal. IVC * Normal IVC dimensions and inspiratory collapse. Pulmonary Artery * Normal visualized portions of the main pulmonary artery. Consult Discharge Plan - Plan Referrals: NONE,PCP [Primary Care Provider] -
[2017-02-15] MEDS: Piperacillin/Tazobactam 3.375 GM in D5% in Water 50 ML IVPB SCH (14:43)
[2017-02-15] MEDS ORDERED: Vancomycin 1,000 MG in D5% in Water 250 ML IVPB ONE (15:15)
[2017-02-15 16:32] LABS: Hematocrit 26.7 % (35.3-44.9); Hemoglobin 8.8 g/dL (11.5-15.4)
[2017-02-15 16:43] LABS: Magnesium 2.5 mg/dL (1.6-2.6); Potassium 4.7 mEq/L (3.5-4.5)
[2017-02-15 16:45] LABS: Phosphorous 4.1 mg/dL (2.3-4.7)
[2017-02-15 16:47] LABS: Ionized Calcium 1.03 mmol/L (1.15-1.35)
[2017-02-15] MEDS: Dexmedetomidine HCl 400 MCG/100 ML MLS IVC SCH ×2 (19:48→19:53)
[2017-02-15 20:45] LABS: Hematocrit 24.5 % (35.3-44.9); Hemoglobin 7.9 g/dL (11.5-15.4)
[2017-02-15] MEDS ORDERED: 0.9 % Sodium Chloride 500 ML ONE (20:53)
[2017-02-16] MEDS: Piperacillin/Tazobactam 3.375 GM in D5% in Water 50 ML IVPB SCH (01:00)
[2017-02-16] MEDS: Vasopressin 40 UNIT in D5% in Water 100 ML IV SCH (01:33)
[2017-02-16] MEDS: Lacri-Lube 3.5 GM TUBE BOTH EYES SCH ×4 (03:18→17:33)
[2017-02-16 03:26] LABS: Magnesium 2.4 mg/dL (1.6-2.6)
[2017-02-16 03:29] LABS: Ionized Calcium 1.04 mmol/L (1.15-1.35)
[2017-02-16 03:45] LABS: Basophils % 0.3 %; Eosinophils % 0.1 %; Hematocrit 29.4 % (35.3-44.9); Immature Granulocytes % 0.5 % (0-4); Lymphocytes # 1.4 K/mcL (0.6-4.6); Lymphocytes % 12.5 %; Mean Corpuscular Hemoglobin 29.1 pg (28.0-33.3); Mean Corpuscular Volume 88.3 fL (83.0-100.0); Mean Platelet Volume 10.8 fL (9.4-12.4); Monocytes # 0.8 K/mcL (0.0-1.3); Monocytes % 7.2 %; Neutrophils # 8.7 K/mcL (1.6-8.9); Nucleated Red Blood Cells 0.2 /100 WBC (0); Platelet Count 182 K/mcL (140-400); Red Blood Count 3.33 M/mcL (3.82-4.97); Red Cell Distribution Width 14.4 % (11.5-14.5); Segmented Neutrophils % 79.4 %
[2017-02-16 03:47] LABS: Albumin/Globulin Ratio 0.8 (1.1-2.2); Bilirubin,Direct 0.3 mg/dL (0.0-0.5); Bilirubin,Indirect 0.3 mg/dL (0.0-1.2); Bilirubin,Total 0.6 mg/dL (0.2-1.2); Calcium 7.6 mg/dL (8.6-10.8); Globulin 2.4 g/dL (2.4-3.5); Potassium 4.7 mEq/L (3.5-4.5); Total Protein 4.4 g/dL (6.0-8.3)
[2017-02-16] MEDS: Insulin LISPRO 300 UNITS/3 ML VIAL SQ SCH ×4 (03:51→16:46)
[2017-02-16 04:01] LABS: Hemoglobin 9.7 g/dL (11.5-15.4)
[2017-02-16 04:14] LABS: ABG Base Excess -2 mEq/L (-2 to 3); ABG HCO3 22 mEq/L (21-27); ABG Oxygen Saturation 97 % (95-98); ABG PCO2 36 mmHg (35-45); ABG PO2 86 mmHg (85-104); ABG TCO2 23 mEq/L (20-26); Blood Gas Modality PRVC; Blood Gas PEEP 5 cm H2O; Blood Gas Respiration Rate 14; Blood Gas VT 450 cc
[2017-02-16 04:24] LABS: Platelet Estimate Normal (Normal)
[2017-02-16] MEDS: *HR* Heparin 5,000 UNIT/ML VIAL SQ SCH (05:04)
[2017-02-16] MEDS: Budesonide/Formoterol 160/4.5 MDI IH SCH ×2 (07:36→19:40)
[2017-02-16] MEDS: Pantoprazole 40 MG VIAL IVP SCH (08:00)
[2017-02-16] MEDS: Chlorhexidine Rinse 15 ML MOUTHWASH MM SCH (08:00)
[2017-02-16] MEDS: Phenylephrine 50 MG in D5% in Water 250 ML IVC SCH (09:05)
--- NOTE | 2017-02-16 09:43 | Pulmonology Progress Note ---
<Krishna Michaud - Last Filed: 02/16/17 15:43> Date of Encounter: 02/16/17 Time of Encounter: 09:43 Assessment and Plan (1) Encephalopathy Current Visit: Yes Status: Acute Patient remains acutely encephalopathic despite no sedating medications. There are no reflexes present including pupillary light reflexes, corneal reflexes, oculogyric reflex, gag reflex. Given the absence of neurologic function we discussed prognosis with the family and they would like to compassionately extubated and transitioned to DNR CC. Palliative has been consulted. Family will gather this evening for compassionate extubation. (2) DKA (diabetic ketoacidoses) Current Visit: Yes Status: Acute Resolved at this time. Comfort measures only as discussed above. Qualifiers: Diabetes mellitus type: other specified (including LETY) Diabetes mellitus complication detail: without coma Qualified Code(s): E13.10 - Other specified diabetes mellitus with ketoacidosis without coma (3) Acute and chronic respiratory failure ([id number]) Current Visit: No Status: Acute Requiring intubation, likely related to metabolic encephalopathy. Plan for compassion extubation and comfort measures only as discussed above. Qualifiers: Respiratory failure complication: hypoxia Qualified Code(s): J96.21 - Acute and chronic respiratory failure with hypoxia (4) NSTEMI (non-ST elevated myocardial infarction) Current Visit: No Status: Acute River Guide: Recommended antiplatelet therapy with Plavix however given the plan for compassion extubation no further treatment is warranted. (5) Chronic anemia Current Visit: Yes Status: Acute (6) Chronic systolic CHF (congestive heart failure) Current Visit: Yes Status: Acute (7) Hypokalemia Current Visit: Yes Status: Acute (8) Living accommodation issues Current Visit: Yes Status: Chronic (9) Chronic inflammatory demyelinating polyneuropathy Current Visit: Yes Status: Acute (10) PVD (peripheral vascular disease) Current Visit: No Status: Chronic Subjective Principal diagnosis: Acute respiratory failure, hyperglycemia Interval history: Patient seen and examined at bedside. She remains intubated. She is on no sedating medication and there is no response to painful stimuli. There are no reflexes present including pupillary light reflex, corneal reflex, gag reflex, oculogyric reflex. Objective PUL Vital signs: Last Vital Signs Temp 97.4 F L 02/16/17 07:48 Pulse 57 02/16/17 09:00 Resp 14 02/16/17 09:00 BP 76/45 02/16/17 09:00 Pulse Ox 93 02/16/17 09:00 General appearance: comatose ENT: oropharynx dry Effort: normal Auscultation: bilateral: diminished breath sounds Cardiovascular: regular rate and rhythm Gastrointestinal: hypoactive bowel sounds, soft, non-tender, non-distended Extremities: no cyanosis, no clubbing, edema (Trace bilateral lower extremities) other (Patient is unresponsive with no primitive reflexes present) Ventilator Settings Ventilator Settings: Ventilator Settings, Last 8 Hours Ventilator Mode VC+ Ventilator Mode VC+ Ventilator Mode VC+ Ventilator Mode VC+ Ventilator Mode VC+ Ventilator Mode VC+ Ventilator Mode VC+ Ventilator Mode VC+ Ventilator Mode VC+ Ventilator Mode VC+ Ventilator Tidal Volume 450 Setting Ventilator Tidal Volume 450 Setting Ventilator Tidal Volume 450 Setting Ventilator Tidal Volume 450 Setting Ventilator Tidal Volume 450 Setting Ventilator Tidal Volume 450 Setting Ventilator Tidal Volume 450 Setting Ventilator Tidal Volume 450 Setting Ventilator Tidal Volume 450 Setting Ventilator Tidal Volume 450 Setting Ventilator Respiratory Rate 14 Setting Ventilator Respiratory Rate 14 Setting Ventilator Respiratory Rate 14 Setting Ventilator Respiratory Rate 14 Setting Ventilator Respiratory Rate 14 Setting Ventilator Respiratory Rate 14 Setting Ventilator Respiratory Rate 14 Setting Ventilator Respiratory Rate 14 Setting Ventilator Respiratory Rate 14 Setting Ventilator Respiratory Rate 14 Setting Actual Respiratory Rate 14 Actual Respiratory Rate 14 Actual Respiratory Rate 14 Actual Respiratory Rate 14 Actual Respiratory Rate 14 Actual Respiratory Rate 14 Positive End Expiratory 5 Pressure Positive End Expiratory 5 Pressure Positive End Expiratory 5 Pressure Positive End Expiratory 5 Pressure Positive End Expiratory 5 Pressure Positive End Expiratory 5 Pressure Positive End Expiratory 5 Pressure Positive End Expiratory 5 Pressure Positive End Expiratory 5 Pressure Positive End Expiratory 5 Pressure Peak Inspiratory Airway 25 Pressure Peak Inspiratory Airway 23 Pressure Peak Inspiratory Airway 23 Pressure Peak Inspiratory Airway 23 Pressure Peak Inspiratory Airway 23 Pressure Peak Inspiratory Airway 25 Pressure Peak Inspiratory Airway 25 Pressure Peak Inspiratory Airway 25 Pressure Peak Inspiratory Airway 24 Pressure Results - Laboratory Findings CBC and BMP: 02/16/17 03:00 02/16/17 03:00 ABG ABG pH 7.40 pH Units (7.32-7.45) 02/16/17 04:11 ABG pCO2 36 mmHg (35-45) 02/16/17 04:11 ABG pO2 86 mmHg (85-104) 02/16/17 04:11 ABG O2 Saturation 97 % (95-98) 02/16/17 04:11 PT/INR, D-dimer PT 12.4 Seconds (9.4-12.1) H 11/14/17 03:30 Abnormal lab findings: Abnormal lab results RBC 3.33 M/mcL (3.82-4.97) L 02/16/17 03:00 Hgb 9.7 g/dL (11.5-15.4) L D 02/16/17 03:00 Hct 29.4 % (35.3-44.9) L 02/16/17 03:00 Nucleated RBCs/100 WBC 0.2 /100 WBC (0) H 02/16/17 03:00 PT 12.4 Seconds (9.4-12.1) H 02/15/17 03:30 Potassium 4.7 mEq/L (3.5-4.5) H 02/16/17 03:00 Chloride 112 mEq/L (98-109) H 02/16/17 03:00 BUN 73 mg/dL (7-20) H 02/16/17 03:00 Creatinine 2.85 mg/dL (0.57-1.11) H 02/16/17 03:00 Est GFR ( Amer) 21 (> 60) L 02/16/17 03:00 Est GFR (Non-Af Amer) 18 (> 60) L 02/16/17 03:00 Glucose 218 mg/dL (70-99) H 02/16/17 03:00 POC Glucose 115 (58-89) H 02/16/17 07:28 Calculated Osmolality 324 (280-300) H 02/16/17 03:00 Calcium 7.6 mg/dL (8.6-10.8) L 02/16/17 03:00 Ionized Calcium 1.04 mmol/L (1.15-1.35) L 02/16/17 03:00 AST 50 Units/L (5-34) H 02/16/17 03:00 Creatine Kinase 248 Units/L (29-168) H 02/14/17 12:57 Troponin I 0.94 ng/mL (0-0.03) H* 02/14/17 22:00 Serum Total Protein 4.4 g/dL (6.0-8.3) L 02/16/17 03:00 Albumin 2.0 g/dL (3.5-5.0) L D 02/16/17 03:00 Albumin/Globulin Ratio 0.8 (1.1-2.2) L 02/16/17 03:00 Beta-Hydroxybutyric Acd > 2.00 mmol/L (0.02-0.27) H 02/14/17 12:57 Urine Clarity Cloudy (Clear) A 02/14/17 11:32 Ur Specific [place] 1.028 (1.010-1.025) H 02/14/17 11:32 Urine Protein >=1000 mg/dL (Neg-Trace) H 02/14/17 11:32 Urine Glucose (UA) >=1000 mg/dL (Normal) H 02/14/17 11:32 Urine Ketones 15 mg/dL (Negative) H 02/14/17 11:32 Urine Blood Moderate (Negative) H 02/14/17 11:32 Urine Microscopic RBC 5-15 per hpf (0-3) H 02/14/17 11:32 Urine Microscopic WBC 15-30 per hpf (0-3) H 02/14/17 11:32 Ur Squamous Epith Cells Many per lpf (None-Few) H 02/14/17 11:32 Stool Occult Blood Positive (Negative) A 02/14/17 19:32 Vancomycin Trough 2.8 mcg/mL (10-20) L 02/15/17 13:47 Enterobacteriac sp PCR DETECTED (Not Detect) A 02/14/17 12:50 E. cloacae complex PCR DETECTED (Not Detect) A 02/14/17 12:50 Enterococcus sp PCR DETECTED (Not Detect) A 02/14/17 12:50 E. coli (PCR) DETECTED (Not Detect) A 02/14/17 12:50 Staphylococcus sp PCR DETECTED (Not Detect) A 02/14/17 12:50 mecA-Methicil Res Gene DETECTED (Not Detect) A 02/14/17 12:50 - Microbiology Findings Microbiology Findings: Microbiology, Last 48 Hours 02/15/17 11:13 Sputum Culture - Preliminary Sputum - Clinical Findings Intake & Output: Intake & Output 02/15/17 02/16/17 02/16/17 23:59 07:59 15:59 Intake Total 1228 / 1228 164 / 164 0 / 0 Output Total 250 / 250 350 / 350 Balance 978 / 978 -186 / -186 0 / 0 Consult Discharge Plan - Plan Referrals: NONE,PCP [Primary Care Provider] - <Kalia Art W - Last Filed: 02/16/17 16:12> Date of Encounter: 02/16/17 Objective PUL Vital signs: Last Vital Signs Temp 97.4 F L 02/16/17 07:48 Pulse 57 02/16/17 09:00 Resp 14 02/16/17 09:00 BP 76/45 02/16/17 09:00 Pulse Ox 93 02/16/17 09:00 Ventilator Settings Ventilator Settings: Ventilator Settings, Last 8 Hours Ventilator Mode VC+ Ventilator Mode VC+ Ventilator Mode VC+ Ventilator Mode VC+ Ventilator Mode VC+ Ventilator Mode VC+ Ventilator Mode VC+ Ventilator Mode VC+ Ventilator Mode VC+ Ventilator Mode VC+ Ventilator Tidal Volume 450 Setting Ventilator Tidal Volume 450 Setting Ventilator Tidal Volume 450 Setting Ventilator Tidal Volume 450 Setting Ventilator Tidal Volume 450 Setting Ventilator Tidal Volume 450 Setting Ventilator Tidal Volume 450 Setting Ventilator Tidal Volume 450 Setting Ventilator Tidal Volume 450 Setting Ventilator Tidal Volume 450 Setting Ventilator Respiratory Rate 14 Setting Ventilator Respiratory Rate 14 Setting Ventilator Respiratory Rate 14 Setting Ventilator Respiratory Rate 14 Setting Ventilator Respiratory Rate 14 Setting Ventilator Respiratory Rate 14 Setting Ventilator Respiratory Rate 14 Setting Ventilator Respiratory Rate 14 Setting Ventilator Respiratory Rate 14 Setting Ventilator Respiratory Rate 14 Setting Actual Respiratory Rate 14 Actual Respiratory Rate 14 Actual Respiratory Rate 14 Actual Respiratory Rate 14 Actual Respiratory Rate 14 Actual Respiratory Rate 14 Positive End Expiratory 5 Pressure Positive End Expiratory 5 Pressure Positive End Expiratory 5 Pressure Positive End Expiratory 5 Pressure Positive End Expiratory 5 Pressure Positive End Expiratory 5 Pressure Positive End Expiratory 5 Pressure Positive End Expiratory 5 Pressure Positive End Expiratory 5 Pressure Positive End Expiratory 5 Pressure Peak Inspiratory Airway 25 Pressure Peak Inspiratory Airway 23 Pressure Peak Inspiratory Airway 23 Pressure Peak Inspiratory Airway 23 Pressure Peak Inspiratory Airway 23 Pressure Peak Inspiratory Airway 25 Pressure Peak Inspiratory Airway 25 Pressure Peak Inspiratory Airway 25 Pressure Peak Inspiratory Airway 24 Pressure Results - Laboratory Findings CBC and BMP: 02/16/17 03:00 02/16/17 03:00 ABG ABG pH 7.40 pH Units (7.32-7.45) 02/16/17 04:11 ABG pCO2 36 mmHg (35-45) 02/16/17 04:11 ABG pO2 86 mmHg (85-104) 02/16/17 04:11 ABG O2 Saturation 97 % (95-98) 02/16/17 04:11 PT/INR, D-dimer PT 12.4 Seconds (9.4-12.1) H 02/15/17 03:30 Abnormal lab findings: Abnormal lab results RBC 3.33 M/mcL (3.82-4.97) L 02/16/17 03:00 Hgb 9.7 g/dL (11.5-15.4) L D 02/16/17 03:00 Hct 29.4 % (35.3-44.9) L 02/16/17 03:00 Nucleated RBCs/100 WBC 0.2 /100 WBC (0) H 02/16/17 03:00 PT 12.4 Seconds (9.4-12.1) H 02/15/17 03:30 Potassium 4.7 mEq/L (3.5-4.5) H 02/16/17 03:00 Chloride 112 mEq/L (98-109) H 02/16/17 03:00 BUN 73 mg/dL (7-20) H 02/16/17 03:00 Creatinine 2.85 mg/dL (0.57-1.11) H 02/16/17 03:00 Est GFR ( Amer) 21 (> 60) L 02/16/17 03:00 Est GFR (Non-Af Amer) 18 (> 60) L 02/16/17 03:00 Glucose 218 mg/dL (70-99) H 02/16/17 03:00 POC Glucose 115 (58-89) H 02/16/17 07:28 Calculated Osmolality 324 (280-300) H 02/16/17 03:00 Calcium 7.6 mg/dL (8.6-10.8) L 02/16/17 03:00 Ionized Calcium 1.04 mmol/L (1.15-1.35) L 02/16/17 03:00 AST 50 Units/L (5-34) H 02/16/17 03:00 Creatine Kinase 248 Units/L (29-168) H 02/14/17 12:57 Troponin I 0.94 ng/mL (0-0.03) H* 02/14/17 22:00 Serum Total Protein 4.4 g/dL (6.0-8.3) L 02/16/17 03:00 Albumin 2.0 g/dL (3.5-5.0) L D 02/16/17 03:00 Albumin/Globulin Ratio 0.8 (1.1-2.2) L 02/16/17 03:00 Beta-Hydroxybutyric Acd > 2.00 mmol/L (0.02-0.27) H 02/14/17 12:57 Urine Clarity Cloudy (Clear) A 02/14/17 11:32 Ur Specific [place] 1.028 (1.010-1.025) H 02/14/17 11:32 Urine Protein >=1000 mg/dL (Neg-Trace) H 02/14/17 11:32 Urine Glucose (UA) >=1000 mg/dL (Normal) H 02/14/17 11:32 Urine Ketones 15 mg/dL (Negative) H 02/14/17 11:32 Urine Blood Moderate (Negative) H 02/14/17 11:32 Urine Microscopic RBC 5-15 per hpf (0-3) H 02/14/17 11:32 Urine Microscopic WBC 15-30 per hpf (0-3) H 02/14/17 11:32 Ur Squamous Epith Cells Many per lpf (None-Few) H 02/14/17 11:32 Stool Occult Blood Positive (Negative) A 02/14/17 19:32 Vancomycin Trough 2.8 mcg/mL (10-20) L 02/15/17 13:47 Enterobacteriac sp PCR DETECTED (Not Detect) A 02/14/17 12:50 E. cloacae complex PCR DETECTED (Not Detect) A 02/14/17 12:50 Enterococcus sp PCR DETECTED (Not Detect) A 02/14/17 12:50 E. coli (PCR) DETECTED (Not Detect) A 02/14/17 12:50 Staphylococcus sp PCR DETECTED (Not Detect) A 02/14/17 12:50 mecA-Methicil Res Gene DETECTED (Not Detect) A 02/14/17 12:50 - Microbiology Findings Microbiology Findings: Microbiology, Last 48 Hours 02/15/17 11:13 Sputum Culture - Preliminary Sputum - Clinical Findings Intake & Output: Intake & Output 02/15/17 02/16/17 02/16/17 23:59 07:59 15:59 Intake Total 1228 / 1228 164 / 164 0 / 0 Output Total 250 / 250 350 / 350 Balance 978 / 978 -186 / -186 0 / 0 - Attending Attestation I examined this patient and my medical decision-making was reviewed with the Resident Physician. I agree with the documented findings, disposition and treatment plan as described except to the extent set forth below. We independently had [id number] contact with the patient I spent 34 min of Critical Care time with this patient. It involved decision making of high complexity to assess, manipulate, and support vital organ system failure and/or to prevent further life threatening deterioration of the patient' s condition. The time involved in the performance of separately reportable procedures was not counted toward critical care time. Patient seen and examined at bedside Labs, radiology, chart personally reviewed. Management was reviewed during multidisciplinary critical care rounds. 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 An by neurology yesterday as it was deemed to be poor neurological prognosis today's exam is even worse I am suspecting possibility of intracerebral swelling versus gray herniation Pulm: He is intubated on the ventilator acceptable oxygenation and ventilation today Cards: She remains a vasodilatory shock although the amount of vasopressor requirement is decreasing last 24 hours FEN-GI: Nothing by mouth PPI prophylaxis given Renal: LANETTE with acceptable urine output ID: Septic shock secondary to Escherichia coli and staph bacteremia she is on appropriate antimicrobials Heme/Onc: Endo: Glucose Monitored Integ/MSK: Skin Care per routine ICU Nursing Protocol to prevent ulcers. Lines: All lines examined without evidence of infection : Dispo: Remain in ICU CODE: I spoke to the patient's family including daughter and sister at bedside today and explained to them that in the last day far as her situation has deteriorated markedly she is now almost certainly not to make any meaningful recovery from current diagnosis patient's family had requested that she be taken off artificial life support yesterday at which time I expressed to them I would request from a medical standpoint another 24-48 hours prior to withdrawing care although today's examination has deteriorated so significantly that I believe it is medically indicated to transition to comfort measures patient family also agreed implanted transitioned to hospice today her CODE STATUS was changed to DNR CC to reflect this palliative care consulted as well appreciate their evaluation and recommendations. The patient is unable or incompetent to participate in giving a history and/or making treatment decisions. The discussion was necessary for determining treatment decision. This discussion took place in the ICU. The total meeting time was 10 minutes
[2017-02-16] MEDS ORDERED: Vancomycin 1,000 MG in D5% in Water 250 ML IVPB ONE (10:00)
--- NOTE | 2017-02-16 11:49 | Cardiology Progress Note ---
<Maria Luisa Curtis - Last Filed: 02/16/17 11:47> Date of Encounter: 02/16/17 Time of Encounter: 09:30 Assessment and Plan (1) Elevated troponin Current Visit: Yes Status: Acute Presented unresponsive with a pmh of CHF, PVD, DM2, and CAD with stent (03/2014 ) found to have elevated troponin. Troponin= 0.94 ( 1.4, 1.78). Trending down. Blood culture positive for multiple bacteria. Patient currently intubated. Echo today showed EF 50%, mild concentric left ventricular hypertrophy, segmental LVSD, normal RV. No evidence of pulmonary HTN. Mild inferior and basal inferior lateral martinez were hypokinetic, basal inferior wall akinetic, all other wall segments normal. LVEF improved compared to prior study and unchanged wall motion abnormalities from previous study in 11/2016. Patients hemoglobin dropped overnight and patient had 2 units of pRBCs infused. Patient is still not responding to painful stimuli but has had some spontaneous respirations without sedation for multiple days. Plan: Elevated troponins stabilized but were significant. Echo shows improvement in EF from prior study and no new wall motion abnormalities. Currently patient's hemoglobin is unstable. Will consider cath prior to discharge if clinical status improves with hemoglobin stable and potential source of bleeding is stopped has been controlled and prognosis changes. Will sign off for now and will gladly be reconsulted if patient's clinical picture improves to do a LHC. Discussion w patient/family: The assessment and plan as outlined above was discussed with the patient and/or family members who expressed understanding and agreement. All questions were answered. Thank you for involving us in the care of your patient. Please call with any questions. Subjective Principal diagnosis: Acute respiratory failure, hyperglycemia Interval history: Patient is still unresponsive to painful stimuli and is currently not on any sedation. Objective Vital Signs, Last 4 Hours Temp Pulse Resp BP Pulse Ox 02/16/17 10:00 60 14 124/60 94 02/16/17 09:00 57 14 76/45 93 02/16/17 07:48 97.4 F L General: Other (intubated, not responsive to painful stimuli, pale skin ) HEENT: Normocephaly Cardiac: Reg Rate and Rhythm, Normal S1 and S2, No Murmur Lungs: Other (mechanical ventilation. ) Neuro: Alert and responsive, No focal deficits noted Abdomen: Soft, Non-Tender Skin: No rashes noted on visualized skin Musculoskeletal: No Chest Wall Tenderness Extremities: No Clubbing, Other (+2 pitting edema in both upper and lower extremitites, lower extremities with increase capillary refill and pale ) Results 02/16/17 03:00 02/16/17 03:00 Lab Results 02/15/17 02/15/17 02/15/17 15:55 15:55 20:30 WBC Hgb 8.8 L 7.9 L Hct 26.7 L 24.5 L Plt Count Sodium Potassium 4.7 H Chloride Carbon Dioxide BUN Creatinine Glucose Calcium Magnesium 2.5 Total Bilirubin AST ALT Alkaline Phosphatase 02/16/17 02/16/17 02/16/17 03:00 03:00 03:00 WBC 10.9 D Hgb 9.7 L D Hct 29.4 L Plt Count 182 Sodium 143 Potassium 4.7 H Chloride 112 H Carbon Dioxide 20 BUN 73 H Creatinine 2.85 H Glucose 218 H Calcium 7.6 L Magnesium 2.4 Total Bilirubin 0.6 AST 50 H ALT 13 Alkaline Phosphatase 53 Consult Discharge Plan - Plan Referrals: NONE,PCP [Primary Care Provider] - <Shavon Howe - Last Filed: 02/16/17 14:13> Date of Encounter: 02/16/17 Assessment and Plan Discussion w patient/family: I examined this patient and my medical decision-making was reviewed with the Resident Physician. I agree with the documented findings, disposition and treatment plan. ICU team plans on withdrawing care today after family discussion. They will hold off on starting plavix. No further recommendations at this time. Please call with questions. Objective Vital Signs, Last 4 Hours Temp Pulse Resp BP Pulse Ox 02/16/17 13:00 59 14 125/61 94 02/16/17 12:00 59 14 92/50 94 02/16/17 11:52 97.4 F L Results 02/16/17 03:00 02/16/17 03:00 Lab Results 02/15/17 02/15/17 02/15/17 15:55 15:55 20:30 WBC Hgb 8.8 L 7.9 L Hct 26.7 L 24.5 L Plt Count Sodium Potassium 4.7 H Chloride Carbon Dioxide BUN Creatinine Glucose Calcium Magnesium 2.5 Total Bilirubin AST ALT Alkaline Phosphatase 02/16/17 02/16/17 02/16/17 03:00 03:00 03:00 WBC 10.9 D Hgb 9.7 L D Hct 29.4 L Plt Count 182 Sodium 143 Potassium 4.7 H Chloride 112 H Carbon Dioxide 20 BUN 73 H Creatinine 2.85 H Glucose 218 H Calcium 7.6 L Magnesium 2.4 Total Bilirubin 0.6 AST 50 H ALT 13 Alkaline Phosphatase 53
--- NOTE | 2017-02-16 14:30 | Palliative - Consult Note ---
Date of Encounter: 02/16/17 Time of Encounter: 12:55 - Assessment and Plan (1) Goals of care, counseling/discussion Current Visit: Yes Status: Acute Assessment and plan: Met with pt daughter, Marisol and her fiance'. Discussed goals of care. She expressed how her mother never cared for herself and was not compliant with treatments or medications. Verbalized that this caused a great deal of stress in their relationship. She understands that neurologically she is worse today. 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 She will be speaking with rest of family regarding timeline for how long they desire life support to continue. Provided emotional support - will continue to follow closely. (2) Leukocytosis Current Visit: Yes Status: Acute Qualifiers: Leukocytosis type: unspecified Qualified Code(s): D72.829 - Elevated white blood cell count, unspecified (3) Severe sepsis Current Visit: Yes Status: Acute Palliative-CN HPI - Data of Consult Requesting Physician: Kalia Art MD Primary Care Provider: PCP NONE - Consult Narrative History of present illness: Ms. Mckeon is a 47 year old female who was found unresponsive at home after neighbor called squad. All information taken from chart review as pt is unresponsive and on the ventilator. Neighbor reported knocking on door the day before without a response, and call squad when still no response the next day. Patient resides at home with mentally disabled son, and apparently had told her son to not call the squad. She was found in emesis and inc of stool. Currently in ICu and intubated. She has been treated for septic shock and has positive blood cultures. She has not improved thus far, and neurologically appears worse than yesterday. Neurology is following - EEG results notes with severe slowing. Yesterday pt was breathing occasionally over the vent, but not today. She has history of multiple medical conditions including DM, CAD, CVA, HTN, CHF, cardiomyopathy, cirrhosis, COPD, , peripheral artery disease, renal disease. Upon seeing pt, daughter Marisol is at the bedside with her fiduane'. She is tearful and I updated on current clinical status. CC: Kalia Art MD Past Med Surg Social Fam HX - Past Medical History Medical history: cardiomyopathy, cirrhosis, CHF, COPD, coronary artery disease, CVA, DVT, diabetes, peripheral artery disease, renal disease, TIA, other Psychiatric history: anxiety, depression - Past Surgical History Surgical History: appendectomy, cholecystectomy, hysterectomy, orthopedic, other - Social History Smoking Status: Current every day smoker Smokeless Tobacco Status: No Alcohol use: none Drug use: none - Family History Father Adopted: No Family Member Ethnicity: Non- Living Status: Hx Family Cardiac Disorders: Yes Hx Family Respiratory Disorders: Yes Hx Family Cancer: Yes Hx Family Endocrine Disorder: Yes Hx Family Neurologic Disorders: No Medications and Allergies Atorvastatin [Lipitor] 40 mg PO HS 06/18/16 [History] Clopidogrel [Plavix] 75 mg PO DAILY 06/18/16 [History] Fenofibrate [Lofibra] 160 mg PO DAILY 06/18/16 [History] Gabapentin [Neurontin] 400 mg PO TID 06/18/16 [History] Isosorbide MONOnitrate (24 HR) [Imdur] 60 mg PO DAILY 06/18/16 [History] Metoprolol XL (24 HR) Succ [Toprol Xl] 50 mg PO DAILY 06/18/16 [History] Potassium Chloride [Klor-Con Sprinkle] 10 meq PO BID 06/18/16 [History] Budesonide/Formoterol 160/4.5 [Symbicort 160/4.5] 2 puff IH BID 08/20/16 [ History] Nitroglycerin [Nitrostat] 0.4 mg SL Q5M PRN 08/20/16 [History] Albuterol Sulfate [Albuterol Inhaler] 2 puff IH Q4HR PRN 11/22/16 [History] Lisinopril 2.5 mg PO DAILY 11/22/16 [History] Ipratropium/Albuterol Neb [Duoneb] 3 ml IH QIDR inh 11/23/16 [Rx] Ondansetron ODT [Zofran ODT] 4 mg SL Q8HR PRN #20 tab.rapdis 11/23/16 [Rx] Insulin DETEMIR [Levemir] 20 unit SQ HS 12/20/16 [History] Insulin DETEMIR [Levemir] 40 unit SQ QAM 12/20/16 [History] Furosemide [Lasix] 40 mg PO DAILY 02/14/17 [History] Rivaroxaban [Xarelto] 15 mg PO BID 02/14/17 [History] 3 Allergy/AdvReac Type Severity Reaction Status Date / Time Onion Allergy Intermediate Swelling Verified 12/20/16 16:11 of Lip/Tongue/Throat ciprofloxacin [From Cipro] Allergy Hives Verified 12/20/16 16:11 codeine Allergy Hives Verified 12/20/16 16:11 insulin glargine Allergy Hives Verified 12/20/16 16:11 [From Lantus] aspirin AdvReac Nausea Verified 12/20/16 16:11 ROS unobtainable: due to endotracheal tube Palliative Care-Exam - Constitutional Vitals: Temp Pulse Resp BP Pulse Ox 97.4 F L 59 14 125/61 94 02/16/17 11:52 02/16/17 13:00 02/16/17 13:00 02/16/17 13:00 02/16/17 13:00 General appearance: Present: disheveled, thin - Head Head Exam: Present: normal inspection - Eye Pupils: Present: fixed - Respiratory Respiratory exam: Present: CTAB Additional comments: breath sounds coarse throughout - Cardiovascular Cardiovascular exam: Present: +S1, +S2 - GI/Abdominal Exam GI/Abdominal exam: Present: diminished bowel sounds, soft - Catheter Type: Urethral (Pastor) - Extremities Exam Extremities exam: Present: normal capillary refill, normal inspection - Neurological Exam Neurological exam: Present: altered - Expanded Neurological Exam Coma Scale Eye Opening: None Coma Scale Motor Response: None Coma Scale Verbal Response: None Coma Scale Total: 3 - Skin Skin exam: Present: dry, pallor, warm Internal Medicine - CN: Reslt - Labs CBC & Chem 7: 02/16/17 03:00 02/16/17 03:00 Labs: Short CBC 02/15/17 02/15/17 02/16/17 Range/Units 15:55 20:30 03:00 WBC 10.9 D (4.3-11.1) K/mcL Hgb 8.8 L 7.9 L 9.7 L D (11.5-15.4) g/dL Hct 26.7 L 24.5 L 29.4 L (35.3-44.9) % Plt Count 182 (140-400) K/mcL Neutrophils # 8.7 (1.6-8.9) K/mcL BMP 02/15/17 02/16/17 15:55 03:00 Sodium 143 Potassium 4.7 H 4.7 H Chloride 112 H Carbon Dioxide 20 BUN 73 H Creatinine 2.85 H Glucose 218 H Calcium 7.6 L Liver Function 02/16/17 Range/Units 03:00 Total Bilirubin 0.6 (0.2-1.2) mg/dL Direct Bilirubin 0.3 (0.0-0.5) mg/dL AST 50 H (5-34) Units/L ALT 13 (0-55) Units/L Alkaline Phosphatase 53 (38-126) Units/L Albumin 2.0 L D (3.5-5.0) g/dL - ABG Interpretation ABG results: ABG ABG pH 7.40 pH Units (7.32-7.45) 02/16/17 04:11 ABG pCO2 36 mmHg (35-45) 02/16/17 04:11 ABG pO2 86 mmHg (85-104) 02/16/17 04:11 ABG O2 Saturation 97 % (95-98) 02/16/17 04:11 PT/INR, D-dimer PT 12.4 Seconds (9.4-12.1) H 02/15/17 03:30 - Impressions Impressions Chest X-Ray 02/15/17 11:59 IMPRESSION: Stable chest with no acute cardiopulmonary process. Life-support appliances appear in satisfactory position. D/ / Lam Monte MD / Lam Monte MD Interpreting Provider: Lam Monte MD Consult Discharge Plan - Plan Referrals: NONE,PCP [Primary Care Provider] - Palliative Quality Palliative Quality: Screen for Code Status: Yes, Screen for Goals of Care: Yes, Screen for Pain: NA, If Pain Regimen Started, Initiate Bowel Regimen: NA, Screen for Nausea/Vomitting: NA Code Status: 02/14/17 16:20 Resuscitation Status: Active [RES] Routine Comment: Resuscitation Status: Full Code 02/15/17 12:59 CODE [Resuscitation Status: Active] [RES] Routine Comment: Resuscitation Status: DNR-Comfort Care-Arrest
--- NOTE | 2017-02-16 15:14 | Event Note ---
Date of Encounter: 02/16/17 Time of Encounter: 15:00 Met with pt aunt, son - Benitez and daughter Marisol again. Family in agreement to compassionately extubate pt and keep her comfortable, however, they desire for a couple of other family members a chance to arrive and see her. They are adamant she be taken off the ventilator this evening. Will transition to DNR- comfort care, and will free from ventilator later this evening when they are ready. Discussed that we will be discontinuing all treatment that does not provide her comfort. Family verbalized understanding.
[2017-02-16] MEDS ORDERED: *HR* Morphine 2 MG/ML SYRINGE IVP PRN (15:15)
[2017-02-16] MEDS ORDERED: *HR* LORazepam 2 MG/ML VIAL IVP PRN (15:16)
[2017-02-16] MEDS ORDERED: Atropine Sulfate 1% 40 DROP/2 ML BOTTLE SL PRN (15:17)
[2017-02-16] MEDS: Dexmedetomidine HCl 400 MCG/100 ML MLS IVC SCH (15:20)
[2017-02-16 18:49] VITALS: BP 88/51
--- NOTE | 2017-02-16 18:52 | Neurology Progress Note ---
Date of Encounter: 02/16/17 Time of Encounter: 18:47 Assessment and Plan (1) Unresponsiveness Current Visit: Yes Status: Acute Neurological status not improving from yesterday and is actually worse. Brain stem reflexes such as pupillary reflex, oculocephalic reflex, corneal reflex are absent. Patient is flaccidly paralyses and there is no DTRs, no pathological signs. Neurological prognosis therefore remain profoundly poor and findings are discussed with the family members including her aunt, daughter and son. Aware with medical team recommendations and agree with current plan of care. Please call if any questions Subjective Principal diagnosis: Unresponsiveness Interval history: Patient is seen and examined at around 5:30pm. Patient is seen in the presence of her daughter and later her son also came and her aunt as well. Patient has no response to painful stimuli or verbal commands. Patient is with no sedation since admission. She has no pupillary reflex bilaterally and pupils are midline, right more than left (3mm, 2mm) but they are fixed. No oculocephalic reflex seen. No corneal reflex seen. No spontaneous blinking. Eyelid drops slowly. Limbs are flaccid paralysed. No spontaneous movements seen. No withdrawal to pain. No DTRs. Neurological findings discussed with the family members mentioned above Objective - Constitutional Vitals: Temp Pulse Resp BP Pulse Ox 97.4 F L 62 14 147/72 93 02/16/17 11:52 02/16/17 17:00 02/16/17 18:23 02/16/17 17:00 02/16/17 18:23 - Neurological Exam Sensorimotor examination: Present: other (Unable to assess) Motor Examination: Present: other (Flaccid paralysed, no spontaneous movement seen, no withdrawal to pain) Sensation intact: Present: other (Unable to assess. No withdrawal or response to noxious pain) Posture: Present: other (NOne) Reflex and gait examination: other (Absent DTRs) Reflexes: Biceps: 0, Triceps: 0, Brachioradialis: 0, Patella: 0, Achilles: 0 Mental Status Examination: Present: coma (Patient has no responsive to painful stimule. ) Cranial nerve examination: Present: PERRL (Non reactive, right 3mm and left 2mm , fixed, midline. ), EOMI (No oculocephalic reflex), corneal reflexes brisk symmetrically (No corneal reflexes), no facial asymmetry is present, gag diminished Results - Laboratory Findings CBC and BMP: 02/16/17 03:00 02/16/17 03:00 Abnormal lab findings: Abnormal lab results RBC 3.33 M/mcL (3.82-4.97) L 02/16/17 03:00 Hgb 9.7 g/dL (11.5-15.4) L D 02/16/17 03:00 Hct 29.4 % (35.3-44.9) L 02/16/17 03:00 Nucleated RBCs/100 WBC 0.2 /100 WBC (0) H 02/16/17 03:00 PT 12.4 Seconds (9.4-12.1) H 02/15/17 03:30 Potassium 4.7 mEq/L (3.5-4.5) H 02/16/17 03:00 Chloride 112 mEq/L (98-109) H 02/16/17 03:00 BUN 73 mg/dL (7-20) H 02/16/17 03:00 Creatinine 2.85 mg/dL (0.57-1.11) H 02/16/17 03:00 Est GFR ( Amer) 21 (> 60) L 02/16/17 03:00 Est GFR (Non-Af Amer) 18 (> 60) L 02/16/17 03:00 Glucose 218 mg/dL (70-99) H 02/16/17 03:00 POC Glucose 180 (58-89) H 02/16/17 11:28 Calculated Osmolality 324 (280-300) H 02/16/17 03:00 Calcium 7.6 mg/dL (8.6-10.8) L 02/16/17 03:00 Ionized Calcium 1.04 mmol/L (1.15-1.35) L 02/16/17 03:00 AST 50 Units/L (5-34) H 02/16/17 03:00 Creatine Kinase 248 Units/L (29-168) H 02/14/17 12:57 Troponin I 0.94 ng/mL (0-0.03) H* 02/14/17 22:00 Serum Total Protein 4.4 g/dL (6.0-8.3) L 02/16/17 03:00 Albumin 2.0 g/dL (3.5-5.0) L D 02/16/17 03:00 Albumin/Globulin Ratio 0.8 (1.1-2.2) L 02/16/17 03:00 Beta-Hydroxybutyric Acd > 2.00 mmol/L (0.02-0.27) H 02/14/17 12:57 Urine Clarity Cloudy (Clear) A 02/14/17 11:32 Ur Specific [place] 1.028 (1.010-1.025) H 02/14/17 11:32 Urine Protein >=1000 mg/dL (Neg-Trace) H 02/14/17 11:32 Urine Glucose (UA) >=1000 mg/dL (Normal) H 02/14/17 11:32 Urine Ketones 15 mg/dL (Negative) H 02/14/17 11:32 Urine Blood Moderate (Negative) H 02/14/17 11:32 Urine Microscopic RBC 5-15 per hpf (0-3) H 02/14/17 11:32 Urine Microscopic WBC 15-30 per hpf (0-3) H 02/14/17 11:32 Ur Squamous Epith Cells Many per lpf (None-Few) H 02/14/17 11:32 Stool Occult Blood Positive (Negative) A 02/14/17 19:32 Vancomycin Trough 2.8 mcg/mL (10-20) L 02/15/17 13:47 Enterobacteriac sp PCR DETECTED (Not Detect) A 02/14/17 12:50 E. cloacae complex PCR DETECTED (Not Detect) A 02/14/17 12:50 Enterococcus sp PCR DETECTED (Not Detect) A 02/14/17 12:50 E. coli (PCR) DETECTED (Not Detect) A 02/14/17 12:50 Staphylococcus sp PCR DETECTED (Not Detect) A 02/14/17 12:50 mecA-Methicil Res Gene DETECTED (Not Detect) A 02/14/17 12:50 Consult Discharge Plan - Plan Referrals: NONE,PCP [Primary Care Provider] -
[2017-02-16] MEDS ORDERED: Aminoglycoside Consult 1 EACH MC ONE (20:29)
--- NOTE | 2017-02-17 02:46 | Death Note ---
Discharge Sum: Summary - Date and Time Date of admission: 02/14/17 14:48 Date of : 02/16/17 Time of : 20:30 - Summary Details: Ms. Mckeon is a 47 year old female with PMH significant for CAD, CHF, DM, CVA, PVD, HTN, COPD, gangrene of toe, chronic back pain who was found to be unresponsive and admitted last night. Per medical records, per EMS the patient was noted to be ill since the last few days. Found to be unresponsive and was intubated in ER for airway protection. Patient was found to be hyperglycemic, in Acute renal and respiratory failure, she was also in DKA at time of arrival as well as suspected NSTEMI. Initial CT of head showed no acute intracranial abnormality. Has had history of white matter signal change on MRI of brain 2014, could not related a lacunar infarct, pattern not consistent with demyelinating disorder. EEG completed showed severe diffuse background slowing, using sensitivity of 2microm/unit. No electrographic seizures, no EDs and no focal slowing noted. Background activity is minimally reactive. No sleep structure seen. Result is consistent with severe encephalopathy. Patient continued to have no brain stem reflexes and remained unresponsive without any sedation. Family decided on palliative extubation. This was done at 1956. Patient at 2029 - Additional Data Confirmation of as documented by pronouncing clinician: no pulse Family: contacted Additional persons at bedside: other Attending/PCP notified?: Yes Attending physician: Kalia Art MD Was code activated?: No (DNR-Comfort care) Autopsy requested?: No rating examiner notified?: No Organ bank notified?: No Advance directives: Yes Hospice patient?: No Discharge Sum: Diag - PCOD Probable Cause of : Respiratory arrest Discharge Sum: Prov - Provider Primary care physician: PCP NONE Admitting clinician: Kalia Art Attending physician on admission: Kalia Art Consults: 02/14/17 16:06 Consult to Cardiology [CONS] Routine Comment: Consulting Provider: Cardiology Hillary Reason for Consult: NSTEMI, Hx MIs, CAD w/ possible GI Bleed Time Notified: 16:07 Call Completed: Yes 02/14/17 16:22 Consult to Geometrician [CONS] Routine Reason for SW Consult: Poor living conditions. Pt down at home for 1 day, living with son. 02/15/17 08:48 Consult to Interpret Exam [CONS] Routine Consulting Provider: Felix Nieves Consult to Interpret Exam: Interpret EEG 02/15/17 11:16 Consult to Physician [CONS] Routine Consulting Provider: Garett Moffett Reason for Consult: GI bleed Call Completed: Yes 02/15/17 11:27 Consult to Neurology [CONS] Routine Consulting Provider: Neurology [facility] Reason for Consult: Unresponsiveness Call Completed: Yes 02/16/17 15:36 Consult to Palliative Care [CONS] Routine Comment: Consulting Provider: Palliative Care Hillary Reason for Consult: Discuss plan of care/code status Call Completed: Yes Pronouncing clinician: William Hopson
== END 2017-02-16 20:30 | disposition expired | DRG 720 ==
LOC: EMEROO 11:17 → ICNU 14:48
PROVIDERS: ADMIT Internal Medicine Hospice and Palliative Medicine; ATTEND Internal Medicine Hospice and Palliative Medicine